=== PATIENT | male | born 1995 | race Two or more races ===

== ENCOUNTER 2023-09-01 13:20 | Inpatient (IN) | payer MEDICAID, OTHER ==
[~2023-09-01] VITALS: Ht 170.2 cm; Wt 62.0 kg
[~2023-09-01 13:20] MED LIST: ARIP1INJ2 IM
[2023-09-01] MEDS: IPRATROPIUM BROM 0.5 MG/2.5ML INH SOL NEB ONE (13:41)
[2023-09-01] MEDS: ALBUTEROL SULF 2.5 MG/0.5ML(0.5%) NEB SOLN NEB ONE (13:41)
[2023-09-01 13:59] VITALS: PULSE 103; RESP 24; O2SAT 94
[2023-09-01] MEDS: methylPREDNISolone SOD SUCC 125 MG/2 ML VL IV ONE (13:59)
[2023-09-01 14:18] LABS: Basophils # (auto) 0 10 ^3/uL (0-0.2); Eosinophils # (auto) 0.2 10 ^3/uL (0-0.8); Hemoglobin 13.2 g/dL (13.5-17.5); Lymphocytes # (auto) 1.1 10 ^3/uL (0.4-5.4); Mean Corpuscular Hemoglobin 25.7 pg (28.0-32.0); Monocytes # (auto) 0.7 10 ^3/uL (0-1.3); Neutrophils # (auto) 14.1 10 ^3/uL (1.6-8.6); Red Blood Cells 5.13 10^6/uL (4.5-5.90); White Blood Cell 16.1 10^3/uL (4.4-10.8)
[2023-09-01 14:19] LABS: Basophils % (auto) 0.2 % (0.0-2.0); Eosinophils % (auto) 1.1 % (0.0-7.0); Hematocrit 41.3 % (41.0-53.0); Lymphocytes % (auto) 7.1 % (10.0-50.0); Mean Corpuscular Hgb Conc. 31.9 g/dL (32.0-36.0); Mean Corpuscular Volume 80.6 fL (80.0-100.0); Monocytes % (auto) 4.2 % (0.0-12.0); Neutrophils % (auto) 87.4 % (37.0-80.0); Nucleated Red Blood Cells % 0.2 %; Red Cell Distribution Width 16.3 % (11.8-14.3)
[2023-09-01 14:30] LABS: Chloride 104 mmol/L (98-107); Potassium 4.2 mmol/L (3.5-5.1); Sodium 139 mmol/L (136-145)
[2023-09-01 14:31] LABS: Anion Gap 4 (5-15); Calcium 9.2 mg/dL (8.7-10.4); Carbon Dioxide 31 mmol/L (20-30)
[2023-09-01 14:36] LABS: Blood Urea Nitrogen 9 mg/dL (9-23); Glucose 123 mg/dL (74-106)
[2023-09-01] MEDS ORDERED: hydrALAZINE HCL 20 MG/ML VL IV PRN (16:00)
[2023-09-01] MEDS ORDERED: ACETAMINOPHEN 325 MG TAB PO PRN (16:00)
[2023-09-01] MEDS ORDERED: DOCUSATE SOD 100 MG CAP PO PRN (16:00)
[2023-09-01] MEDS ORDERED: HYDROcodone-ACET 5/325MG TAB PO PRN (16:00)
[2023-09-01] MEDS ORDERED: ONDANSETRON HCL 4 MG/2 ML VIAL IV PRN (16:00)
[2023-09-01 16:13] VITALS: BP 132/66; PULSE 103; RESP 18; TEMP 98.4; O2SAT 95
[2023-09-01] MEDS: SODIUM CHLORIDE 0.9% 1,000 ML IV SCH (16:13)
[2023-09-01 16:20] VITALS: O2SAT 95
[2023-09-01] MEDS ORDERED: MORPHINE SULFATE INJ 2 MG/ml SYRG IV PRN (16:30)
[2023-09-01] MEDS ORDERED: NITROGLYCERIN 0.4 MG SL TAB SL PRN (16:30)
[2023-09-01 19:20] VITALS: PULSE 99; RESP 19; O2SAT 92
[2023-09-01 22:25] VITALS: PULSE 87; RESP 18; O2SAT 95
[2023-09-01] MEDS: methylPREDNISolone SOD SUCC 40 MG/ML VL IV SCH (22:25)
[2023-09-01] MEDS: ALBUTEROL SULF 2.5 MG/0.5ML(0.5%) NEB SOLN NEB PRN (22:26)
[2023-09-01] MEDS: IPRATROPIUM BROM 0.5 MG/2.5ML INH SOL NEB PRN (22:26)
[2023-09-01] MEDS: FAMOTIDINE (10MG/ML) 2ML VL IV SCH (22:26)
[2023-09-01 22:32] VITALS: PULSE 86; RESP 18; O2SAT 95
[2023-09-02] VITALS (10 sets, daily range): BP systolic 117–139; BP diastolic 61–82; PULSE 45–105; RESP 16–22; TEMP 97.3–97.8; O2SAT 93–97
[2023-09-02 00:50] LABS: COVID19 ANTIGEN SOFIA FIA NEGATIVE (NEGATIVE); Rapid Influenza A Negative (Negative); Rapid Influenza B Negative (Negative)
[2023-09-02 05:59] LABS: Basophils # (auto) 0 10 ^3/uL (0-0.2); Basophils % (auto) 0.1 % (0.0-2.0); Eosinophils # (auto) 0 10 ^3/uL (0-0.8); Hematocrit 39.6 % (41.0-53.0); Lymphocytes # (auto) 0.8 10 ^3/uL (0.4-5.4); Lymphocytes % (auto) 3.7 % (10.0-50.0); Mean Corpuscular Hemoglobin 26.5 pg (28.0-32.0); Mean Corpuscular Hgb Conc. 32.7 g/dL (32.0-36.0); Monocytes # (auto) 0.5 10 ^3/uL (0-1.3); Monocytes % (auto) 2.2 % (0.0-12.0); Neutrophils # (auto) 19.5 10 ^3/uL (1.6-8.6); Red Blood Cells 4.89 10^6/uL (4.5-5.90); Red Cell Distribution Width 16.2 % (11.8-14.3); White Blood Cell 20.7 10^3/uL (4.4-10.8)
[2023-09-02 06:16] LABS: Alanine Aminotransferase 45 U/L (7-40); Albumin 3.9 g/dL (3.2-4.8); Alkaline Phosphatase 94 U/L (46-116); Anion Gap 6 (5-15); Aspartate Aminotransferase 16 U/L (13-40); BUN/Creatinine Ratio 14.5 (10.0-20.0); Blood Urea Nitrogen 9 mg/dL (9-23); Calcium 9.1 mg/dL (8.7-10.4); Carbon Dioxide 28 mmol/L (20-30); Chloride 106 mmol/L (98-107); Glucose 148 mg/dL (74-106); Potassium 4.2 mmol/L (3.5-5.1); Sodium 140 mmol/L (136-145)
[2023-09-02 06:17] LABS: Bilirubin, Total 0.4 mg/dL (0.2-1.0)
[2023-09-02 06:18] LABS: Total Protein 6.8 g/dL (5.7-8.2)
[2023-09-02] MEDS: IOHEXOL 350 MG/ML 100ML IJ ONE (14:46)
[2023-09-02] MEDS: methylPREDNISolone SOD SUCC 40 MG/ML VL IV SCH (15:15)
[2023-09-02] MEDS ORDERED: TRAZ-228 PO (15:38)
[2023-09-02] MEDS ORDERED: ATEN50TA PO (15:38)
[2023-09-02] MEDS ORDERED: TETR25TA PO (15:38)
[2023-09-02] MEDS ORDERED: LATA0.0020 EACHEYE (15:38)
[2023-09-02] MEDS ORDERED: CHOL20007 PO (15:38)
[2023-09-02] MEDS ORDERED: DORZ2SOL18 EACHEYE (15:38)
[2023-09-03] VITALS (12 sets, daily range): BP systolic 117–145; BP diastolic 67–81; PULSE 57–75; RESP 20–24; TEMP 97.1–97.9; O2SAT 92–99
[2023-09-03 06:34] LABS: Basophils # (auto) 0 10 ^3/uL (0-0.2); Basophils % (auto) 0.1 % (0.0-2.0); Eosinophils # (auto) 0 10 ^3/uL (0-0.8); Hematocrit 41.2 % (41.0-53.0); Hemoglobin 13.4 g/dL (13.5-17.5); Lymphocytes # (auto) 0.9 10 ^3/uL (0.4-5.4); Lymphocytes % (auto) 4.7 % (10.0-50.0); Mean Corpuscular Hemoglobin 26.2 pg (28.0-32.0); Mean Corpuscular Hgb Conc. 32.6 g/dL (32.0-36.0); Mean Corpuscular Volume 80.4 fL (80.0-100.0); Monocytes # (auto) 0.8 10 ^3/uL (0-1.3); Monocytes % (auto) 3.8 % (0.0-12.0); Neutrophils # (auto) 18.2 10 ^3/uL (1.6-8.6); Neutrophils % (auto) 91.4 % (37.0-80.0); Nucleated Red Blood Cells % 0.1 %; Red Blood Cells 5.12 10^6/uL (4.5-5.90); Red Cell Distribution Width 16.3 % (11.8-14.3); White Blood Cell 19.9 10^3/uL (4.4-10.8)
[2023-09-03 06:35] LABS: Anion Gap 6 (5-15); Carbon Dioxide 31 mmol/L (20-30); Chloride 104 mmol/L (98-107); Potassium 4.3 mmol/L (3.5-5.1); Sodium 141 mmol/L (136-145)
[2023-09-03 06:36] LABS: Calcium 9.1 mg/dL (8.7-10.4)
[2023-09-03 06:41] LABS: BUN/Creatinine Ratio 19.1 (10.0-20.0); Blood Urea Nitrogen 13 mg/dL (9-23); Glucose 122 mg/dL (74-106)
[2023-09-03] MEDS ORDERED: PRED20TA2 PO (15:49)
[2023-09-03] MEDS ORDERED: BUDE1AER16 IN (15:52)
[2023-09-04 09:06] LABS: Hepatitis B Surface Antigen Negative (Negative)
[2023-09-04 09:28] LABS: Hepatitis C Antibody Negative (Negative)
== END 2023-09-03 18:25 | disposition home or self-care (01) | DRG 133 ==
LOC: EDBD 13:20 → ER 13:20 → TELE 16:24 → TELE-E-ADS 09-02 02:30
PROVIDERS: ADMIT Internal Medicine Pulmonary Disease; ATTEND Internal Medicine Pulmonary Disease
PROC: 5A09357 Assistance with Respiratory Ventilation, Less than 24 Consecutive Hours, Continuous Positive Airway Pressure (ICD-10-PCS; principal; 2023-09-03)
DX: J96.01 Acute respiratory failure with hypoxia (principal); J45.41 Moderate persistent asthma with (acute) exacerbation; D72.829 Elevated white blood cell count, unspecified; E66.01 Morbid (severe) obesity due to excess calories; Z68.21 Body mass index [BMI] 21.0-21.9, adult; Z20.822 Contact with and (suspected) exposure to COVID-19; F84.0 Autistic disorder; F20.9 Schizophrenia, unspecified; G47.33 Obstructive sleep apnea (adult) (pediatric)
CPT/HCPCS: 36415; 71045; 71275; 80048; 80053; 83880; 84484; 85025; 86803; 87040; 87340; 87426; 87804; 93005; 93970; 94640; 94660; 99291; G0378; J3490

== ENCOUNTER 2024-01-19 17:12 | Inpatient (IN) | payer MEDICAID ==
[~2024-01-19] VITALS: Ht 170.2 cm; Wt 145.5 kg
[~2024-01-19 17:12] MED LIST changes: +ALBU108A5 IN; +ATEN50TA PO; +BECL40AE11 IN; +BUDE1AER16 IN; +CHOL20007 PO; +DORZ2SOL18 EACHEYE; +LATA0.0020 EACHEYE; +METF-370 PO; +PRED20TA2 PO; +TETR25TA PO; +TRAZ-228 PO
[2024-01-19] MEDS: ALBUTEROL SULF 2.5 MG/0.5ML(0.5%) NEB SOLN NEB ONE (17:45)
[2024-01-19] MEDS: IPRATROPIUM BROM 0.5 MG/2.5ML INH SOL NEB ONE (17:45)
[2024-01-19] MEDS: ALBUTEROL SULF 2.5 MG/0.5ML(0.5%) NEB SOLN ONE (17:53)
[2024-01-19] MEDS: IPRATROPIUM BROM 0.5 MG/2.5ML INH SOL ONE (17:53)
[2024-01-19] MEDS: MAGNESIUM SULFATE 1GM/100ML 100 ML IV ONE ×2 (18:06→18:33)
[2024-01-19] MEDS: methylPREDNISolone SOD SUCC 125 MG/2 ML VL IV ONE (18:10)
[2024-01-19 18:18] VITALS: PULSE 112; RESP 32; O2SAT 92
--- NOTE | 2024-01-19 18:21 | DVH ---
CHEST RADIOGRAPH Indication: SOB Technique: Single frontal view of the chest was obtained Comparison: XY CHEST PORTABLE on DOS: 09/01/23 FINDINGS: Lines and Tubes: None Lungs: Obscuration of the left hemidiaphragm Diffuse interstitial prominence. No pneumothorax. Cardiomediastinal contours: Moderate cardiomegaly Bones: No acute osseous abnormality. IMPRESSION: Moderate cardiomegaly with findings suggestive of congestive heart failure. Possible left-sided pleu ral effusion.
--- NOTE | 2024-01-19 18:25 | ED.PDOC ---
SOB-HPI HPI Comments 28-year-old male with past medical history of asthma, autism, schizophrenia presented with chief complaint of shortness of breath, cough and sputum. Patient started having cough and yellowish colored sputum for last 2-3 days but since 0800 hours in the morning patient started having shortness of breath. Patient took albuterol 2 times but did not get relief and then called EMS. As per EMS, patient was saturating 80-85% and was saturating 97% after nebulization with albuterol. Patient denied any chest pain, palpitations, nausea, vomiting, dizziness, headache, abdominal pain, leg pain, melena, hematochezia. As per mother who came later in the hospital, patient had been intubated one time six months ago in [facility] for two weeks for asthma exacerbation. Past medical history asthma, autism, schizophrenia Past surgical history Denied Family history Denied significant family history Social history Patient mentioned that he smokes marijuana and drinks occasional alcohol Denied smoking or any other drugs Allergic history No known allergies Review of system As explained in the HPI Examination General Appearance: Alert, Oriented X3, Cooperative, No acute distress HEENT: EOMI Respiratory: Bilateral scattered wheezing, Cardiovascular: Regular rate, Normal S1, Normal S2, no murmurs Abdominal: Normal bowel sounds Extremities: Bilateral pedal pitting edema Neuro: Normal speech and tone Chief Complaint: Shortness of Breath Time Seen by MD: 17:34 Primary Care Provider: UNKNOWN Reviewed notes: Nurses Notes Mode of Arrival: EMS Differential Dx Differential Diagnosis: Asthma, Cardiogenic Shock, CHF, COPD, Myocardial infarction, Pneumonia, Pulmonary Embolism, Respiratory Distress X-Ray, Labs, Meds, VS Vital Signs Date Time Temp Pulse Resp B/P (MAP) Pulse Ox O2 Delivery O2 Flow Rate FiO2 01/19/24 19:50 133/84 01/19/24 19:45 98.1 87 34 133/84 (100) 90 98.1 01/19/24 19:26 136/83 01/19/24 19:11 96 20 136/83 (100) 95 01/19/24 18:42 105 01/19/24 18:37 113 01/19/24 18:18 112 32 92 Bi-Pap+ 60 60 01/19/24 18:18 97.9 112 32 146/92 (110) 93 97.9 01/19/24 18:10 107 146/92 Facial BiPAP Mask 50 01/19/24 17:45 32 93 Nasal Cannula* 6 44 01/19/24 17:12 97.9 122 20 122/75 (91) 96 Lab Test 01/19/24 20:10 01/19/24 19:04 01/19/24 19:03 01/19/24 18:04 Range/Units Urine Opiates Screen Neg NEGATIVE Urine Fentanyl Screen Neg NEGATIVE Urine Barbiturates Screen Neg NEGATIVE Urine Phencyclidine Screen Neg NEGATIVE Urine Amphetamines Screen Neg NEGATIVE Urine Benzodiazepines Screen Pos NEGATIVE Urine Cocaine Screen Neg NEGATIVE Urine Cannabinoids Screen Pos NEGATIVE Troponin I High Sensitivity 62 *H 61 *H </=54 ng/L Blood Gas Specimen Type Arterial Blood Gas Sample Site Left radial Blood Gas Patient Temperature 37.0 Arterial Blood Date Drawn [id number] Arterial Blood pH 7.258 L 7.350-7.450 Arterial Blood Partial Pressure CO2 76.9 *H 35.0-48.0 mmHg Arterial Blood Partial Pressure O2 90.4 83.0-108.0 mmHg Arterial Blood HCO3 33.6 H 21.0-28.0 mmol/L Arterial Blood Oxygen Saturation 95.4 94.0-98.0 % Arterial Blood Base Excess 4.0 H -2.0-3.0 mmol/L Arterial Blood Oxyhemoglobin 93.2 L 94.0-98.0 % Arterial Blood Carboxyhemoglobin 1.8 H 0.5-1.5 % Arterial Blood Methemoglobin 0.5 0.0-1.5 % Giacomo Test Yes Blood Gas Total Hemoglobin 13.70 13.5-17.5 g/dL Blood Gas Modality Mask - bipap FiO2 % 50.0 Blood Gas EPAP 8 Blood Gas IPAP 16 Specimen Drawn By Nasra jiménez tax compliance manager Blood Gas Critical Value Read Back yes Blood Gas Notified Whom taina Stallworth resident Blood Gas Notified Time [id number] Blood Gas Notified By Nasra jiménez tax compliance manager White Blood Count 11.6 H 4.4-10.8 10^3/uL Red Blood Count 5.67 4.5-5.90 10^6/uL Hemoglobin 12.5 L 13.5-17.5 g/dL Hematocrit 41.9 41.0-53.0 % Mean Corpuscular Volume 73.8 L 80.0-100.0 fL Mean Corpuscular Hemoglobin 22.1 L 28.0-32.0 pg Mean Corpuscular Hemoglobin Concent 29.9 L 32.0-36.0 g/dL Red Cell Distribution Width 18.6 H 11.8-14.3 % Platelet Count 266 140-450 10^3/uL Mean Platelet Volume 7.0 6.9-10.8 fL Neutrophils (%) (Auto) 84.5 H 37.0-80.0 % Lymphocytes (%) (Auto) 7.4 L 10.0-50.0 % Monocytes (%) (Auto) 6.8 0.0-12.0 % Eosinophils (%) (Auto) 1.1 0.0-7.0 % Basophils (%) (Auto) 0.2 0.0-2.0 % Neutrophils # (Auto) 9.8 H 1.6-8.6 10 ^3/uL Lymphocytes # (Auto) 0.9 0.4-5.4 10 ^3/uL Monocytes # (Auto) 0.8 0-1.3 10 ^3/uL Eosinophils # (Auto) 0.1 0-0.8 10 ^3/uL Basophils # (Auto) 0 0-0.2 10 ^3/uL Nucleated Red Blood Cells 0.2 % D-Dimer, Quantitative 0.43 0.0-0.49 mg/L FEU Sodium Level 142 136-145 mmol/L Potassium Level 4.1 3.5-5.1 mmol/L Chloride Level 104 98-107 mmol/L Carbon Dioxide Level 33 H 20-31 mmol/L Anion Gap 5 5-15 Blood Urea Nitrogen 9 9-23 mg/dL Creatinine 0.73 0.700-1.30 mg/dL Glomerular Filtration Rate Calc 126 >90 mL/min BUN/Creatinine Ratio 12.3 10.0-20.0 Serum Glucose 113 H 74-106 mg/dL Calcium Level 8.9 8.7-10.4 mg/dL Total Bilirubin 0.3 0.2-1.0 mg/dL Aspartate Amino Transferase (AST) 39 13-40 U/L Alanine Aminotransferase (ALT) 77 H 7-40 U/L Alkaline Phosphatase 100 46-116 U/L B-Type Natriuretic Peptide 561.97 0-100 pg/mL Total Protein 6.6 5.7-8.2 g/dL Albumin 3.9 3.2-4.8 g/dL Test 01/19/24 17:56 Range/Units Blood Gas Specimen Type Arterial Blood Gas Sample Site Left radial Blood Gas Patient Temperature 37.0 Arterial Blood Date Drawn [id number] Arterial Blood pH 7.292 L 7.350-7.450 Arterial Blood Partial Pressure CO2 70.9 *H 35.0-48.0 mmHg Arterial Blood Partial Pressure O2 72.5 L 83.0-108.0 mmHg Arterial Blood HCO3 33.5 H 21.0-28.0 mmol/L Arterial Blood Oxygen Saturation 91.9 L 94.0-98.0 % Arterial Blood Base Excess 4.6 H -2.0-3.0 mmol/L Arterial Blood Oxyhemoglobin 90.0 L 94.0-98.0 % Arterial Blood Carboxyhemoglobin 1.6 H 0.5-1.5 % Arterial Blood Methemoglobin 0.5 0.0-1.5 % Giacomo Test Yes Blood Gas Total Hemoglobin 14.00 13.5-17.5 g/dL Blood Gas Liter Flow 6.00 Blood Gas Modality Nasal cannula FiO2 % 44.0 Specimen Drawn By Nasra jiménez rrt Blood Gas Critical Value Read Back yes Blood Gas Notified Whom taina [place] resident Blood Gas Notified Time [id number] Blood Gas Notified By Nasra jiménez tax compliance manager Current Medications Medications (Trade) Dose Ordered Sig/Reji Route Start Time Stop Time Status Last Admin Magnesium Sulfate/ Dextrose 100 ml @ 200 mls/hr ONCE ONCE IV 01/19/24 17:45 01/19/24 18:14 DC 01/19/24 18:06 Albuterol (Ventolin Medneb) 2.5 mg ONCE ONCE NEB 01/19/24 17:45 01/19/24 17:51 DC 01/19/24 17:45 Ipratropium [place] (Atrovent Medneb) 0.5 mg ONCE ONCE NEB 01/19/24 17:45 01/19/24 17:51 DC 01/19/24 17:45 Methylprednisolone Sodium Succinate (Solu Medrol) 62.5 mg ONCE ONCE IV 01/19/24 17:45 01/19/24 17:51 DC 01/19/24 18:10 Magnesium Sulfate/ Dextrose 100 ml @ 200 mls/hr ONCE ONCE IV 01/19/24 17:45 01/19/24 18:14 DC 12/9/24 18:33 Furosemide (Lasix Injection) 40 mg ONCE ONCE IV 01/19/24 18:30 01/19/24 20:07 DC 01/19/24 22:35 Nitroglycerin 250 ml @ 1.5 mls/hr Q24H ONCE IV 01/19/24 19:15 01/20/24 19:14 01/19/24 19:26 Terbutaline Sulfate (Brethine Inj) 0.25 mg ONCE ONCE SC 01/19/24 19:15 01/19/24 19:16 DC 01/19/24 22:37 Time of 1ST Reevaluation: 19:04 Reevaluation 1ST: Worsened Patient Education/Counseling: Diagnosis, Treatment Family Education/Counseling: Diagnosis, Treatment Comments Patient presented with the above shortness of breath. workup was initiated. Patient was given: Albuterol, ipratropium nebulization treatment, IV magnesium 2 g, IV methylprednisolone. aspirin 325mg once Patient did not improve, patient was started on BiPAP as ABG was showing respira tory acidosis with concomitant metabolic alkalosis. Chest x-ray showed cardiomegaly with possible CHF with left-sided pleural effusion Patient was given IV Lasix, nitroglycerin drip. Repeat ABG did not show significant improvement Patient was intubated, and started on sedation. Patient ED course and VS have been stabilized. Patient has been reassessed in the ED and remained in a stable condition. Patient has been observed in the ED adequate length of time to insure stability. patient was admitted to the medicine team for further evaluation and treatment of their presentation. All the reports of any imaging studies that were ordered by myself were reviewed by myself. Departure 1 Departure Time of Disposition: 19:04 Impression: Primary Impression: Asthma exacerbation Additional Impressions: CHF exacerbation Elevated troponin Acute hypoxic respiratory failure Disposition: ADMITTED INPATIENT Admit to: ICU Condition: Critical Critical Care Note Critical Care Time?: Yes (>90min-critical care time only) PORTIA STALLWORTH RESIDENT Jan 19, 2024 18:25
[2024-01-19 18:27] LABS: Basophils # (auto) 0 10 ^3/uL (0-0.2); Basophils % (auto) 0.2 % (0.0-2.0); Eosinophils # (auto) 0.1 10 ^3/uL (0-0.8); Eosinophils % (auto) 1.1 % (0.0-7.0); Hematocrit 41.9 % (41.0-53.0); Hemoglobin 12.5 g/dL (13.5-17.5); Lymphocytes # (auto) 0.9 10 ^3/uL (0.4-5.4); Lymphocytes % (auto) 7.4 % (10.0-50.0); Mean Corpuscular Hemoglobin 22.1 pg (28.0-32.0); Mean Corpuscular Hgb Conc. 29.9 g/dL (32.0-36.0); Mean Corpuscular Volume 73.8 fL (80.0-100.0); Monocytes # (auto) 0.8 10 ^3/uL (0-1.3); Monocytes % (auto) 6.8 % (0.0-12.0); Neutrophils # (auto) 9.8 10 ^3/uL (1.6-8.6); Neutrophils % (auto) 84.5 % (37.0-80.0); Nucleated Red Blood Cells % 0.2 %; Platelet Count (auto) 266 10^3/uL (140-450); Red Blood Cells 5.67 10^6/uL (4.5-5.90); Red Cell Distribution Width 18.6 % (11.8-14.3); White Blood Cell 11.6 10^3/uL (4.4-10.8)
--- NOTE | 2024-01-19 18:44 | ECG ---
[facility] Test Date: 2024-01-19 Test Time: 18:42:15 Pat Name: DENNIS MERCER Department: ER Room: [address] [place] [address] Gender: M Adjunct Trainer: MAUREEN : 1995 Requested By: HUGO YEPEZ Order Number: [id number] Reading MD: Ney Tony Measurements Intervals [place] Rate: 105 P: 20 HI: 146 QRS: 216 QRSD: 97 T: 27 QT: 348 QTc: 461 Interpretive Statements Sinus tachycardia Probable anterior infarct, age indeterminate Electronically Signed On 01-23-2024 12:36:07 PST by Ney Tony Please click the below link to view image of tracing.
[2024-01-19 18:45] LABS: Alanine Aminotransferase 77 U/L (7-40); Albumin 3.9 g/dL (3.2-4.8); Alkaline Phosphatase 100 U/L (46-116); Anion Gap 5 (5-15); Aspartate Aminotransferase 39 U/L (13-40); BUN/Creatinine Ratio 12.3 (10.0-20.0); Bilirubin, Total 0.3 mg/dL (0.2-1.0); Blood Urea Nitrogen 9 mg/dL (9-23); Calcium 8.9 mg/dL (8.7-10.4); Carbon Dioxide 33 mmol/L (20-31); Chloride 104 mmol/L (98-107); Glucose 113 mg/dL (74-106); Potassium 4.1 mmol/L (3.5-5.1); Sodium 142 mmol/L (136-145); Total Protein 6.6 g/dL (5.7-8.2)
--- NOTE | 2024-01-19 18:51 | DVH ---
Bilateral lower extremity venous duplex Clinical History: rule out DVT Comparison: US BILAT LOWER DVT on DOS: 09/02/23 Technique: Duplex Doppler evaluation of the deep venous systems of both lower extremities from the common femora l veins to the popliteal veins including color Doppler and spectral/pulsed waveform analysis was perf ormed. Findings: RIGHT SIDE: The common femoral vein demonstrates appropriate compressibility and waveform variability. There is compressibility/patency of the great saphenous vein at the proximal thigh. The femoral vein demonstrates appropriate compressibility and waveform variability. The deep femoral vein demonstrates appropriate compressibility and waveform variability. The popliteal vein demonstrates appropriate compressibility and waveform variability. There is normal compressibility at the tibioperoneal trunk. LEFT SIDE: The common femoral vein not visible. There is compressibility/patency of the great saphenous vein at the proximal thigh. The femoral vein proximal superficial femoral vein is not visible. The deep femoral vein demonstrates appropriate compressibility and waveform variability. The popliteal vein demonstrates appropriate compressibility and waveform variability. There is normal compressibility at the tibioperoneal trunk. Impression: 1. No right or left femoropopliteal venous thrombosis. 2. Left common femoral vein and proximal superficial femoral vein are not visible and therefore throm bus can not be excluded in those areas.
[2024-01-19] MEDS ORDERED: NITROGLYCERIN 50MG/250ML 250 ML IV ONE (19:00)
[2024-01-19] MEDS: NITROGLYCERIN 50MG/250ML 250 ML IV ONE (19:26)
[2024-01-19] MEDS ORDERED: NITROGLYCERIN 0.4 MG SL TAB SL PRN (20:15)
[2024-01-19] MEDS ORDERED: MORPHINE SULFATE INJ 2 MG/ml SYRG IV PRN (20:15)
[2024-01-19] MEDS ORDERED: ONDANSETRON HCL 4 MG/2 ML VIAL IV PRN (20:15)
--- NOTE | 2024-01-19 20:19 | DVHHP2 ---
Admitting Diagnosis: Shortness of breath and cough History of Present Illness Patient is a 28 year old male complaining of shortness of breath, cough and sputum. Patient has a history of asthma, schizophrenia, and autism. Patient has had yellow colored sputum for 2-3 days. Patient has also been experiencing shortness of breath. Patient has not received any relief from albuterol. Per EMS, patient was saturating 80-85% and after nebulization with albuterol, it was 97%. Patient denies any chest pain. While in the emergency department the patient was evaluated by the provider, Labs, vital signs, and imagining monitored. Patient will be admitted for further evaluation and treatment. I discussed admission with the patient/family and is in agreement to treatment plan. Patient Family History: Self-harm G8 SISTER Allergies: Coded Allergies: NO KNOWN ALLERGIES (Unverified , 09/01/23) Home Meds Reported Medications Metformin Hydrochloride (Metformin Hcl) 500 Mg Tab, 1 TAB PO BID for 90 Days, #180 01/20/24 Beclomethasone Dipropionate (Qvar Redihaler) 40 Mcg/Act Aer, 1 PUFF IN BID for 60 Days, #10.6 01/20/24 Albuterol Sulfate (Albuterol Sulfate Hfa) 108 Mcg/Act Aer, 2 PUFF IN Q4HR PRN for COUGH for 16 Days, #8.5 01/20/24 Latanoprost (Xalatan) 0.005 % Rosy, 1 DROP EACHEYE QPM 09/02/23 Dorzolamide-Timolol (Dorzolamide Hcl/Timolol M) 1 Ml Rosy, 1 DROP EACHEYE BID 09/02/23 Tetrabenazine (Tetrabenazine) 25 Mg Tab, 1 TAB PO DAILY 09/02/23 Trazodone Hcl (Trazodone Hcl) 100 Mg Tab, 1 TAB PO BID 09/02/23 Cholecalciferol (VITAMIN D3) 2,000 Unit Tab, 1 TAB PO DAILY 09/02/23 Atenolol (Atenolol) 50 Mg Tab, 1 TAB PO DAILY 09/02/23 Aripiprazole Monohydrate (Abilify Maintena) 400 Mg Inj, 400 MG IM MONTHLY for 28 Days, #1 09/02/23 Current Medications Current Medications Medications (Trade) Dose Ordered Sig/Reji Route PRN Reason Start Time Stop Time Status Last Admin Enoxaparin Sodium (Lovenox) 40 mg DAILY SC 01/20/24 10:00 01/20/24 07:10 DC Methylprednisolone Sodium Succinate (Solu Medrol) 40 mg Q6HR IV 01/20/24 00:00 01/20/24 17:43 Pantoprazole Sodium (Protonix) 40 mg DAILY IV 01/20/24 10:00 01/20/24 09:22 Enoxaparin Sodium (Lovenox) 180 mg Q12HR SC 01/20/24 10:00 01/20/24 09:03 DC Aspirin 81 mg DAILY NG 01/20/24 10:00 01/20/24 09:22 Atorvastatin Calcium (Lipitor) 40 mg HS PO 01/20/24 22:00 Furosemide (Lasix Injection) 40 mg BIDD IV 01/20/24 18:00 01/20/24 11:21 DC Enoxaparin Sodium (Lovenox) 150 mg Q12HR SC 01/20/24 10:00 01/20/24 09:23 Latanoprost (Xalatan) 1 drop QPM EACHEYE 01/20/24 18:00 01/20/24 18:01 Patient Own Medication 400 mg MONTHLY IM 01/20/24 11:30 Lisinopril (Zestril Tablet) 20 mg DAILY PO 01/20/24 11:30 01/20/24 12:05 Furosemide (Lasix Injection) 40 mg DAILY IV 01/21/24 10:00 Nitroglycerin 250 ml @ 1.5 mls/hr Q24H IV 01/20/24 20:30 Albuterol (Ventolin Medneb) 2.5 mg Q4HR NEB 01/20/24 22:00 01/20/24 22:16 Ipratropium [place] (Atrovent Medneb) 0.5 mg Q4HR NEB 01/20/24 22:00 01/20/24 22:17 Review of Systems Constitutional: denies chills, denies fever, denies malaise Eyes: denies eye pain, denies vision change ENT: denies ear pain, denies headache, denies nasal congestion, denies painful swallowing, denies voice change Cardiovascular: denies chest pain, denies edema, denies orthopnea, denies palpitations, denies paroxysmal nocturnal dyspnea Respiratory: denies cough, denies shortness of breath Gastrointestinal: denies constipation, denies diarrhea, denies nausea, denies vomiting Genitourinary: denies dysuria, denies frequent urination, denies urethral discharge Musculoskeletal: denies back pain, denies joint pain, denies muscle pain Skin: denies bruising, denies itching, denies rash Neurological: denies focal weakness, denies headache, denies sensory changes Psychiatric: denies anxiety, denies depression Endocrine: denies polydipsia, denies polyuria Hematologic/Lymphatic: denies easy bleeding, denies easy bruising, denies enlarged lymph nodes Allergic/Immunologic: denies allergy, denies hives Vital Signs Vital Signs Date Time Temp Pulse Resp B/P (MAP) Pulse Ox O2 Delivery O2 Flow Rate FiO2 01/20/24 22:17 80 28 136/80 (98) 93 100 01/20/24 21:15 99.0 210.2 01/20/24 21:00 Mechanical Ventilator+ 01/19/24 17:45 6 Physical Exam General Appearance: alert, no distress HEENT: EOMI, PERRLA, normal external inspect of ears, no icterus, no nasal drainage Neck: no carotid bruit, no jugular venous distention (JVD), no lymphadenopathy Chest: normal thorax Respiratory: clear to auscultation Cardiovascular: regular rate and rhythm, no diastolic murmur, no jugular venous distention (JVD), no rub, no systolic murmur Abdominal: soft, no hepatomegaly, no mass, no splenomegaly, no tenderness Genitourinary: grossly normal external Musculoskeletal: no joint tenderness, no swelling Extremities: normal pulses, no calf tenderness, no clubbing, no cyanosis, no edema Skin: no bruising, no jaundice, no rash Neurological: alert, No focal deficit Results Labs Test 01/20/24 10:15 01/20/24 08:05 01/20/24 07:34 01/20/24 03:20 Range/Units Troponin I High Sensitivity 82 *H </=54 ng/L Blood Gas Specimen Type Arterial Blood Gas Sample Site Left radial Blood Gas Patient Temperature 37.0 Arterial Blood Date Drawn [id number] Arterial Blood pH 7.424 7.350-7.450 Arterial Blood Partial Pressure CO2 41.2 35.0-48.0 mmHg Arterial Blood Partial Pressure O2 81.7 L 83.0-108.0 mmHg Arterial Blood HCO3 26.4 21.0-28.0 mmol/L Arterial Blood Oxygen Saturation 96.2 94.0-98.0 % Arterial Blood Base Excess 1.8 -2.0-3.0 mmol/L Arterial Blood Oxyhemoglobin 94.6 94.0-98.0 % Arterial Blood Carboxyhemoglobin 1.6 H 0.5-1.5 % Arterial Blood Methemoglobin 0.1 0.0-1.5 % Giacomo Test Modified Blood Gas Total Hemoglobin 14.00 13.5-17.5 g/dL Blood Gas Set Respiration Rate 28.0 Blood Gas Modality Vent - ac FiO2 % 100.0 Blood Gas Tidal Volume 500.0 Blood Gas PEEP or CPAP 10.0 Thyroid Stimulating Hormone (TSH) 0.48 L 0.55-4.78 uIU/mL White Blood Count 11.2 H 4.4-10.8 10^3/uL Red Blood Count 5.73 4.5-5.90 10^6/uL Hemoglobin 12.9 L 13.5-17.5 g/dL Hematocrit 42.0 41.0-53.0 % Mean Corpuscular Volume 73.3 L 80.0-100.0 fL Mean Corpuscular Hemoglobin 22.5 L 28.0-32.0 pg Mean Corpuscular Hemoglobin Concent 30.7 L 32.0-36.0 g/dL Red Cell Distribution Width 18.7 H 11.8-14.3 % Platelet Count 271 140-450 10^3/uL Mean Platelet Volume 7.1 6.9-10.8 fL Neutrophils (%) (Auto) 94.3 H 37.0-80.0 % Lymphocytes (%) (Auto) 4.3 L 10.0-50.0 % Monocytes (%) (Auto) 1.3 0.0-12.0 % Eosinophils (%) (Auto) 0.0 0.0-7.0 % Basophils (%) (Auto) 0.1 0.0-2.0 % Neutrophils # (Auto) 10.5 H 1.6-8.6 10 ^3/uL Lymphocytes # (Auto) 0.5 0.4-5.4 10 ^3/uL Monocytes # (Auto) 0.1 0-1.3 10 ^3/uL Eosinophils # (Auto) 0 0-0.8 10 ^3/uL Basophils # (Auto) 0 0-0.2 10 ^3/uL Nucleated Red Blood Cells 0.2 % Sodium Level 140 136-145 mmol/L Potassium Level 4.3 3.5-5.1 mmol/L Chloride Level 103 98-107 mmol/L Carbon Dioxide Level 32 H 20-31 mmol/L Anion Gap 5 5-15 Blood Urea Nitrogen 9 9-23 mg/dL Creatinine 0.70 0.700-1.30 mg/dL Glomerular Filtration Rate Calc 128 >90 mL/min BUN/Creatinine Ratio 12.9 10.0-20.0 Serum Glucose 162 H 74-106 mg/dL Calcium Level 9.2 8.7-10.4 mg/dL Total Bilirubin 0.5 0.2-1.0 mg/dL Aspartate Amino Transferase (AST) 35 13-40 U/L Alanine Aminotransferase (ALT) 70 H 7-40 U/L Alkaline Phosphatase 90 46-116 U/L Total Protein 6.9 5.7-8.2 g/dL Albumin 3.9 3.2-4.8 g/dL Test 01/20/24 01:45 01/19/24 23:34 01/19/24 20:30 01/19/24 20:16 Range/Units Blood Gas Spontaneous Rate 28 Blood Gas Critical Value Read Back Yes Blood Gas Notified Whom Md. irene rolon Blood Gas Notified Time [id number] Blood Gas Notified By Rt shailesh damon Influenza Type A Antigen Negative Negative Influenza Type B Antigen Negative Negative SARS-CoV-2 Antigen (Rapid) Negative NEGATIVE Blood Gas EPAP 8 Blood Gas IPAP 20 Specimen Drawn By Nasra jiménez machine pecan gatherer Test 01/19/24 20:10 01/19/24 18:04 01/19/24 17:56 Range/Units Urine Opiates Screen Neg NEGATIVE Urine Fentanyl Screen Neg NEGATIVE Urine Barbiturates Screen Neg NEGATIVE Urine Phencyclidine Screen Neg NEGATIVE Urine Amphetamines Screen Neg NEGATIVE Urine Benzodiazepines Screen Pos NEGATIVE Urine Cocaine Screen Neg NEGATIVE Urine Cannabinoids Screen Pos NEGATIVE D-Dimer, Quantitative 0.43 0.0-0.49 mg/L FEU B-Type Natriuretic Peptide 561.97 0-100 pg/mL Blood Gas Liter Flow 6.00 Admitting Diagnosis: 1. Asthma with acute exacerbation Pulmonary consult, monitoring 2. Acute hypoxic respiratory failure requiring intubation Pulmonary Consult 3. Shizophrenia Monitoring 4. Autism Medication, monitoring 5. Elevated Troponin Cardiology Consult, monitoring 6. Cannabis Use Education Plan discussed with: Patient, Other VIK COBOS MUSIC SOUND LIGHT TECHNICIAN Jan 19, 2024 20:19
[2024-01-19] MEDS: ETOMIDATE (2MG/ML) 20ML VIAL IV ONE (20:45)
[2024-01-19] MEDS: ROCURONIUM 10MG/ML 10ML VIAL IV ONE ×2 (20:45→21:13)
[2024-01-19 21:00] VITALS: BP 169/117; PULSE 106; RESP 24; O2SAT 96
[2024-01-19] MEDS: ASPirin 325 MG TAB PO ONE (21:16)
[2024-01-19 21:17] LABS: COVID19 ANTIGEN SOFIA FIA NEGATIVE (NEGATIVE)
[2024-01-19 21:18] LABS: Rapid Influenza A Negative (Negative); Rapid Influenza B Negative (Negative)
[2024-01-19] MEDS: MIDAZOLAM DRIP 50 mg/50mL 50 ML IV SCH (21:30)
[2024-01-19 21:43] LABS: Base Excess 4.6 mmol/L (-2.0-3.0)
[2024-01-19] MEDS: MIDAZOLAM DRIP 50 mg/50mL 50 ML IV ONE (21:45)
[2024-01-19 21:46] LABS: Base Excess 2.6 mmol/L (-2.0-3.0)
[2024-01-19 21:50] VITALS: BP 169/117; PULSE 106; RESP 24; TEMP 98.1; O2SAT 100
--- NOTE | 2024-01-19 21:55 | DVH ---
CHEST RADIOGRAPH Indication: ET TUBE/ NG TUBE PLACEMENT Technique: Single frontal view of the chest was obtained Comparison: XY CHEST PORTABLE on DOS: 01/19/24, XY CHEST PORTABLE on DOS: 09/01/23 Findings / IMPRESSION: Endotracheal tube projects terminating 1.8 cm superior to the zbigniew. Enteric tube is projecting belo w the GE junction without visualization of the port or tip. Low lung volumes with bronchovascular agricultural crop farm manager wding. Possible small left-sided pleural effusion and/or atelectasis. No pneumothorax.
[2024-01-19] MEDS: fentaNYL Drip 2500mCg/250mlNS 250 ML IV SCH (22:15)
[2024-01-19] MEDS: PROPOFOL 100 ML IV ONE (22:26)
[2024-01-19] MEDS: PROPOFOL 100 ML IV SCH (22:31)
[2024-01-19 22:35] VITALS: BP 138/72; PULSE 84; RESP 24; O2SAT 92
[2024-01-19] MEDS: FUROSEMIDE 40 MG/4 ML VIAL IV ONE (22:35)
[2024-01-19] MEDS: TERBUTALINE SULFATE 1 MG/ML 1ML VIAL SC ONE (22:37)
[2024-01-19 22:43] LABS: Amphetamine Screen, Urine Neg (NEGATIVE); Barbiturate Scree,Urine Neg (NEGATIVE); Benzodiazephine Screen, Urine Pos (NEGATIVE); Cannabinoid Screen, Urine Pos (NEGATIVE); Cocaine Screen, Urine Neg (NEGATIVE); Opiate Scree,Urine Neg (NEGATIVE); Phencyclidine Screen, Urine Neg (NEGATIVE)
--- NOTE | 2024-01-19 22:56 | DVHNC2 ---
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 ([facility]) Indication: Hypotension Room prepared for procedure: Yes Railcar Carpenter performed hand hygien: Yes Maximal sterile barrier precau: Mask/Eye shield, Sterile gown, Cap, Sterlie gloves, Large sterlie drape Skin Preparation: Chlorhexidine gluconate Skin preparation completely dr: Yes Insertion site: Left, Internal jugular Central line catheter type: Xer-oflabokc-men dialysis Number of lumens: 3 Intubation Indication: Respiratory Insufficiency Prep: Preoxygenation (with bipap) Medicated with: Other (Etomidate and rocuronium) Intubation Approach: Orotracheal Intubation size: cm (8) Date of Service: Jan 19, 2024 Billing Provider: POOJA EARL MD Common Visit Codes: PROCEDURE ONLY Procedure Codes: 40277-MPOXDO NON-TUNNEL CV CATH PORTIA LEWIS RESIDENT Jan 19, 2024 22:56
[2024-01-19 23:46] LABS: Base Excess 4.4 mmol/L (-2.0-3.0)
[2024-01-19 23:50] VITALS: BP 139/85; PULSE 80; RESP 28; O2SAT 93
[2024-01-20] VITALS (31 sets, daily range): BP systolic 120–155; BP diastolic 65–100; PULSE 78–110; RESP 22–30; TEMP 99–99.5; O2SAT 88–96
[2024-01-20] MEDS: methylPREDNISolone SOD SUCC 40 MG/ML VL IV SCH (00:51)
[2024-01-20 01:55] LABS: Base Excess 7.4 mmol/L (-2.0-3.0)
[2024-01-20 04:02] LABS: Basophils # (auto) 0 10 ^3/uL (0-0.2); Basophils % (auto) 0.1 % (0.0-2.0); Eosinophils # (auto) 0 10 ^3/uL (0-0.8); Hemoglobin 12.9 g/dL (13.5-17.5); Lymphocytes # (auto) 0.5 10 ^3/uL (0.4-5.4); Lymphocytes % (auto) 4.3 % (10.0-50.0); Mean Corpuscular Hemoglobin 22.5 pg (28.0-32.0); Mean Corpuscular Hgb Conc. 30.7 g/dL (32.0-36.0); Mean Corpuscular Volume 73.3 fL (80.0-100.0); Monocytes # (auto) 0.1 10 ^3/uL (0-1.3); Monocytes % (auto) 1.3 % (0.0-12.0); Neutrophils # (auto) 10.5 10 ^3/uL (1.6-8.6); Neutrophils % (auto) 94.3 % (37.0-80.0); Nucleated Red Blood Cells % 0.2 %; Platelet Count (auto) 271 10^3/uL (140-450); Red Blood Cells 5.73 10^6/uL (4.5-5.90); Red Cell Distribution Width 18.7 % (11.8-14.3); White Blood Cell 11.2 10^3/uL (4.4-10.8)
[2024-01-20 04:08] LABS: Albumin 3.9 g/dL (3.2-4.8); Alkaline Phosphatase 90 U/L (46-116); Anion Gap 5 (5-15); Aspartate Aminotransferase 35 U/L (13-40); BUN/Creatinine Ratio 12.9 (10.0-20.0); Blood Urea Nitrogen 9 mg/dL (9-23); Calcium 9.2 mg/dL (8.7-10.4); Chloride 103 mmol/L (98-107); Potassium 4.3 mmol/L (3.5-5.1); Sodium 140 mmol/L (136-145)
[2024-01-20 04:09] LABS: Bilirubin, Total 0.5 mg/dL (0.2-1.0); Total Protein 6.9 g/dL (5.7-8.2)
[2024-01-20 04:11] LABS: Alanine Aminotransferase 70 U/L (7-40); Carbon Dioxide 32 mmol/L (20-31); Glucose 162 mg/dL (74-106)
--- NOTE | 2024-01-20 04:14 | DVH ---
CHEST RADIOGRAPH Indication: position of the central line Technique: Single frontal view of the chest was obtained Comparison: XY CHEST XRAY 1 VIEW on DOS: 01/19/24, XY CHEST PORTABLE on DOS: 01/19/24, XY CHEST PORTABL E on DOS: 09/01/23 IMPRESSION: Cardiomediastinal silhouette is enlarged. There is increased pulmonary vascular congestion, similar p rior examination. Obscuration of the left hemidiaphragm may be on the basis of technique versus small pleural effusion. No discrete pneumothorax. Endotracheal tube and enteric tube are redemonstrated. Left IJ catheter tip is likely at the region of the brachiocephalic vein.
--- NOTE | 2024-01-20 06:21 | DVH ---
CHEST RADIOGRAPH Indication: L NECK CENTRAL VERIFICATION Technique: Single frontal view of the chest was obtained Comparison: XY CHEST PORTABLE on DOS: 01/19/24, XY CHEST XRAY 1 VIEW on DOS: 01/19/24, XY CHEST PORTABL E on DOS: 01/19/24, XY CHEST PORTABLE on DOS: 09/01/23, XY CHEST PORTABLE on DOS: 01/19/24 FINDINGS: Cardiomediastinal silhouette is enlarged. There is increased pulmonary vascular congestion, similar p rior examination. Obscuration of the left hemidiaphragm may be on the basis of technique versus small pleural effusion. No discrete pneumothorax. Endotracheal tube and enteric tube are redemonstrated. Left IJ catheter tip is likely at the region of the brachiocephalic vein. IMPRESSION: NO INTERVAL CHANGE.
--- NOTE | 2024-01-20 07:02 | ECG ---
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
--- NOTE | 2024-01-20 07:09 | DVHINCON2 ---
Date of service: Jan 20, 2024 History of Present Illness HPI Patient is 28 year old morbidly obese male who presented to ED with shortness of breath. He has been intubated for respiratory failure and in on vent. support. Information was obtained by reviewing the chart and communicating with staff. Cardiology is involved for cardiac aspects of care. There is no report of chest pain prior to presentation. Reportedly, patient has been intubated for snf previously for Asthma in other institution. Home Meds Active Scripts Budesonide-Formoterol Fumarate (Breyna 160-4.5 Mcg/Act) 1 Aer Aer, 1 AER IN DAILY for 30 Days, #1 AER Prov:PORTIA ROLON RESIDENT 09/03/23 Prednisone (Prednisone) 20 Mg Tab, 20 MG PO BID for 5 Days, #10 MG Prov:PORTIA ROLON RESIDENT 09/03/23 Reported Medications Latanoprost (Xalatan) 0.005 % Rosy, 1 DROP EACHEYE QPM 09/02/23 Dorzolamide-Timolol (Dorzolamide Hcl/Timolol M) 1 Ml Rosy, 1 DROP EACHEYE BID 09/02/23 Tetrabenazine (Tetrabenazine) 25 Mg Tab, 1 TAB PO DAILY 09/02/23 Trazodone Hcl (Trazodone Hcl) 100 Mg Tab, 1 TAB PO BID 09/02/23 Cholecalciferol (VITAMIN D3) 2,000 Unit Tab, 1 TAB PO DAILY 09/02/23 Atenolol (Atenolol) 50 Mg Tab, 1 TAB PO DAILY 09/02/23 Aripiprazole Monohydrate (Abilify Maintena) 400 Mg Inj, 400 MG IM MONTHLY for 28 Days, #1 09/02/23 Past Medical History Others PMH reportedly includes Morbid obesity, Asthma (with previous intubations), Autism, Schizophrenia and ANNETTE. Smokes Marijuana and drinks alcohol Family History Patient is intubated and information could not be obtained. Patient Family History: Self-harm G8 SISTER Drugs: Marijuana Review of Systems Comments Patient is intubated and information (SH/ROS/FH) could not be obtained. H&P Exam Vital Signs Vital Signs Date Time Temp Pulse Resp B/P (MAP) Pulse Ox O2 Delivery O2 Flow Rate FiO2 01/20/24 07:01 98.6 75 28 147/88 (107) 96 98.6 01/20/24 05:56 100 01/19/24 20:38 Bi-Pap+ 01/19/24 17:45 6 General Appeara: Obese Pulmonary/Respiratory: Rhonci Cardiovascular/Chest: Regular rate, Systolic murmur Peripheral Pulses: 2+ carotid (R), 2+ carotid (L), 2+ femoral (R), 2+ femoral (L), 2+ dorsalis pedis (R), 2+ dorsalis pedis (L), 2+ Radial (R), 2+ Radial (L) Abdominal Exam: Normal bowel sounds, Other (obese) Labs/Xrays Labs Test 01/20/24 03:20 01/20/24 01:45 01/20/24 01:36 01/19/24 23:34 Range/Units White Blood Count 11.2 H 4.4-10.8 10^3/uL Red Blood Count 5.73 4.5-5.90 10^6/uL Hemoglobin 12.9 L 13.5-17.5 g/dL Hematocrit 42.0 41.0-53.0 % Mean Corpuscular Volume 73.3 L 80.0-100.0 fL Mean Corpuscular Hemoglobin 22.5 L 28.0-32.0 pg Mean Corpuscular Hemoglobin Concent 30.7 L 32.0-36.0 g/dL Red Cell Distribution Width 18.7 H 11.8-14.3 % Platelet Count 271 140-450 10^3/uL Mean Platelet Volume 7.1 6.9-10.8 fL Neutrophils (%) (Auto) 94.3 H 37.0-80.0 % Lymphocytes (%) (Auto) 4.3 L 10.0-50.0 % Monocytes (%) (Auto) 1.3 0.0-12.0 % Eosinophils (%) (Auto) 0.0 0.0-7.0 % Basophils (%) (Auto) 0.1 0.0-2.0 % Neutrophils # (Auto) 10.5 H 1.6-8.6 10 ^3/uL Lymphocytes # (Auto) 0.5 0.4-5.4 10 ^3/uL Monocytes # (Auto) 0.1 0-1.3 10 ^3/uL Eosinophils # (Auto) 0 0-0.8 10 ^3/uL Basophils # (Auto) 0 0-0.2 10 ^3/uL Nucleated Red Blood Cells 0.2 % Sodium Level 140 136-145 mmol/L Potassium Level 4.3 3.5-5.1 mmol/L Chloride Level 103 98-107 mmol/L Carbon Dioxide Level 32 H 20-31 mmol/L Anion Gap 5 5-15 Blood Urea Nitrogen 9 9-23 mg/dL Creatinine 0.70 0.700-1.30 mg/dL Glomerular Filtration Rate Calc 128 >90 mL/min BUN/Creatinine Ratio 12.9 10.0-20.0 Serum Glucose 162 H 74-106 mg/dL Calcium Level 9.2 8.7-10.4 mg/dL Total Bilirubin 0.5 0.2-1.0 mg/dL Aspartate Amino Transferase (AST) 35 13-40 U/L Alanine Aminotransferase (ALT) 70 H 7-40 U/L Alkaline Phosphatase 90 46-116 U/L Total Protein 6.9 5.7-8.2 g/dL Albumin 3.9 3.2-4.8 g/dL Blood Gas Specimen Type Arterial Blood Gas Sample Site Left radial Blood Gas Patient Temperature 37.0 Arterial Blood Date Drawn [id number] Arterial Blood pH 7.428 7.350-7.450 Arterial Blood Partial Pressure CO2 51.5 H 35.0-48.0 mmHg Arterial Blood Partial Pressure O2 90.0 83.0-108.0 mmHg Arterial Blood HCO3 33.3 H 21.0-28.0 mmol/L Arterial Blood Oxygen Saturation 97.0 94.0-98.0 % Arterial Blood Base Excess 7.4 H -2.0-3.0 mmol/L Arterial Blood Oxyhemoglobin 95.4 94.0-98.0 % Arterial Blood Carboxyhemoglobin 1.3 0.5-1.5 % Arterial Blood Methemoglobin 0.4 0.0-1.5 % Giacomo Test Modified Blood Gas Total Hemoglobin 14.00 13.5-17.5 g/dL Blood Gas Set Respiration Rate 28.0 Blood Gas Modality Vent - ac Blood Gas Spontaneous Rate 28 FiO2 % 100.0 Blood Gas Tidal Volume 500.0 Blood Gas PEEP or CPAP 10.0 Troponin I High Sensitivity 132 *H </=54 ng/L Blood Gas Critical Value Read Back Yes Blood Gas Notified Whom Md. irene rolon Blood Gas Notified Time [id number] Blood Gas Notified By Rt b nelson Test 01/19/24 20:30 01/19/24 20:16 01/19/24 20:10 01/19/24 18:04 Range/Units Influenza Type A Antigen Negative Negative Influenza Type B Antigen Negative Negative SARS-CoV-2 Antigen (Rapid) Negative NEGATIVE Blood Gas EPAP 8 Blood Gas IPAP 20 Specimen Drawn By Nasra jiménez bone char operator Urine Opiates Screen Neg NEGATIVE Urine Fentanyl Screen Neg NEGATIVE Urine Barbiturates Screen Neg NEGATIVE Urine Phencyclidine Screen Neg NEGATIVE Urine Amphetamines Screen Neg NEGATIVE Urine Benzodiazepines Screen Pos NEGATIVE Urine Cocaine Screen Neg NEGATIVE Urine Cannabinoids Screen Pos NEGATIVE D-Dimer, Quantitative 0.43 0.0-0.49 mg/L FEU B-Type Natriuretic Peptide 561.97 0-100 pg/mL Test 01/19/24 17:56 Range/Units Blood Gas Liter Flow 6.00 Assessment/Plan Plan Patient is 28 year old morbidly obese male who presented to ED with shortness of breath. He has been intubated for respiratory failure and in on vent. support. Information was obtained by reviewing the chart and communicating with staff. Cardiology is involved for cardiac aspects of care. There is no report of chest pain prior to presentation. Reportedly, patient has been intubated for snf previously for Asthma in other institution. Intubated and on vent support. Morbidly obese. Does have right sided subclavian access. No JVD. Mucosa is pink and wet. No goiter. Scattered rhonchi is heard. Cardiac: RR, no thrill, no gallop. Abdomen is soft, obese and distended. BS is +. Ext reveal 2+ edema bilaterally. DP is 2+ bilateral PMH reportedly includes Morbid obesity, Asthma (with previous intubations), Autism, Schizophrenia and ANNETTE. Smokes Marijuana and drinks alcohol WBC: 11.6 to 11.2 D-dimer: 0.43 (wnl) Creat: 0.73 - 0.70 K: 4.1 - 4.3 BNP: 561.97 Trop (high sensitive): 61 - 62 - 131 - 132 - 91 TSH: 0.48 Urine toxicology was positive for Cannabinoids and Benzodiazpin Chest xry revealed: FINDINGS: Lines and Tubes: None Lungs: Obscuration of the left hemidiaphragm Diffuse interstitial prominence. No pneumothorax. Cardiomediastinal contours: Moderate cardiomegaly Bones: No acute osseous abnormality. IMPRESSION: Moderate cardiomegaly with findings suggestive of congestive heart failure. Possible left-sided pleural effusion. Repeat chest xry revealed: Endotracheal tube projects terminating 1.8 cm superior to the zbigniew. Enteric tube is projecting below the GE junction without visualization of the port or tip. Low lung volumes with bronchovascular crowding. Possible small left-sided pleural effusion and/or atelectasis. No pneumothorax. Repeat chest xry revealed: Cardiomediastinal silhouette is enlarged. There is increased pulmonary vascular congestion, similar prior examination. Obscuration of the left hemidiaphragm may be on the basis of technique versus small pleural effusion. No discrete pneumothorax. Endotracheal tube and enteric tube are redemonstrated. Left IJ catheter tip is likely at the region of the brachiocephalic vein. Repeat chest xry revealed: FINDINGS: Cardiomediastinal silhouette is enlarged. There is increased pulmonary vascular congestion, similar prior examination. Obscuration of the left hemidiaphragm may be on the basis of technique versus small pleural effusion. No discrete pneumothorax. Endotracheal tube and enteric tube are redemonstrated. Left IJ catheter tip is likely at the region of the brachiocephalic vein. IMPRESSION: NO INTERVAL CHANGE. Venous duplex of lower ext revealed: Impression: 1. No right or left femoropopliteal venous thrombosis. 2. Left common femoral vein and proximal superficial femoral vein are not visible and therefore thrombus can not be excluded in those areas. EKG revealed: Sinus tachycardia with non-specific STT changes Tele reveals Sinus rhythm Patient is 28 year old male with history of morbid obesity who presented with respiratory failure. Does have history of Asthma and reportedly has been intubated for it before. Trop has been mildly elevated. ACS is less likely and increase in troponin most likely represents demand physiology. Still, component of type 1 physiology cannot be completely ruled out. Acute respiratory failure Asthma Asthma exacerbation Morbid obesity Abnormal trop Questionable heart failure, acute Cardiac suggestion for management: Manage in ICU IV diuresis Follow up electrolytes and kidney function test and correct abnormalities. Keep potassium above 4 and magnesium above 2 Lovenox for now ASA for now Echocardiogram Follow up vital signs and correct hyper/hypotension Pulmonary Evaluation Further evaluation and management depends on the above and clinical course Thank you for consultation A total of 75 minutes was spent reviewing the patient record, examining the patient, making a diagnostic and therapeutic plan, discussing this plan with medical personnel, following up on diagnostic studies and following the patient for clinical stability excluding any and all procedures. At least 50% of this time was spent in direct, [id number] contact. Thank you for allowing me to participate in this patient's care. Further recommendations will depend on patient's clinical course. Please do not hesitate to contact me if you have any questions or concerns. This medical document was created using electronic medical record system with [employer] computerized dictation system. Although this document has been carefully reviewed, there may still be some phonetic and typographical errors. These areas are purely typographical due to the imperfection of the software programs, and do not reflect any compromise in the patient's medical care. Plan discussed with: Other (nurse) PARRIS MCKINNON MD Jan 20, 2024 07:09
--- NOTE | 2024-01-20 07:53 | DVHHP2 ---
Patient Family History: Self-harm G8 SISTER Allergies: Coded Allergies: NO KNOWN ALLERGIES (Unverified , 09/01/23) Home Meds Active Scripts Budesonide-Formoterol Fumarate (Breyna 160-4.5 Mcg/Act) 1 Aer Aer, 1 AER IN DAILY for 30 Days, #1 AER Prov:PORTIA ROLON RESIDENT 09/03/23 Prednisone (Prednisone) 20 Mg Tab, 20 MG PO BID for 5 Days, #10 MG [facility]/03/23 Reported Medications Latanoprost (Xalatan) 0.005 % Rosy, 1 DROP EACHEYE QPM 09/02/23 Dorzolamide-Timolol (Dorzolamide Hcl/Timolol M) 1 Ml Rosy, 1 DROP EACHEYE BID 09/02/23 Tetrabenazine (Tetrabenazine) 25 Mg Tab, 1 TAB PO DAILY 09/02/23 Trazodone Hcl (Trazodone Hcl) 100 Mg Tab, 1 TAB PO BID 09/02/23 Cholecalciferol (VITAMIN D3) 2,000 Unit Tab, 1 TAB PO DAILY 09/02/23 Atenolol (Atenolol) 50 Mg Tab, 1 TAB PO DAILY 09/02/23 Aripiprazole Monohydrate (Abilify Maintena) 400 Mg Inj, 400 MG IM MONTHLY for 28 Days, #1 09/02/23 Current Medications Current Medications Medications (Trade) Dose Ordered Sig/Reji Route PRN Reason Start Time Stop Time Status Last Admin Ondansetron HCl (Zofran) 4 mg Q4HP PRN IV NAUSEA / VOMITING 01/19/24 20:15 Docusate Sodium (Colace Capsule) 100 mg BIDPRN PRN PO FOR CONSTIPATION 01/19/24 20:15 Enoxaparin Sodium (Lovenox) 40 mg DAILY SC 01/20/24 10:00 01/20/24 07:10 DC Albuterol (Ventolin Medneb) 2.5 mg Q4HP PRN NEB SHORTNESS OF BREATH 01/19/24 20:15 Methylprednisolone Sodium Succinate (Solu Medrol) 40 mg Q6HR IV 01/20/24 00:00 01/20/24 06:11 Pantoprazole Sodium (Protonix) 40 mg DAILY IV 01/20/24 10:00 Nitroglycerin (Ntrostat Sublingual) 0.4 mg Q5MINP PRN SL FOR CHEST PAIN 01/19/24 20:15 Morphine Sulfate 2 mg Q30M PRN IV FOR CHEST PAIN 01/19/24 20:15 Midazolam HCl 50 ml @ 1 mls/hr Q24H IV 01/19/24 21:30 01/19/24 21:30 Propofol 100 ml @ 0 mls/hr Q0M IV 01/19/24 21:45 01/19/24 22:31 Fentanyl Citrate 250 ml @ 5 mls/hr Q24H IV 01/19/24 21:45 01/19/24 22:15 Enoxaparin Sodium (Lovenox) 180 mg Q12HR SC 01/20/24 10:00 UNV Aspirin 81 mg DAILY NG 01/20/24 10:00 UNV Atorvastatin Calcium (Lipitor) 40 mg HS PO 01/20/24 22:00 UNV Furosemide (Lasix Injection) 40 mg BIDD IV 01/20/24 18:00 UNV Vital Signs Vital Signs Date Time Temp Pulse Resp B/P (MAP) Pulse Ox O2 Delivery O2 Flow Rate FiO2 01/20/24 07:01 98.6 75 28 147/88 (107) 96 98.6 01/20/24 05:56 100 01/19/24 20:38 Bi-Pap+ 01/19/24 17:45 6 Results Labs Test 01/20/24 07:34 01/20/24 03:20 01/20/24 01:45 01/19/24 23:34 Range/Units White Blood Count 11.2 H 4.4-10.8 10^3/uL Red Blood Count 5.73 4.5-5.90 10^6/uL Hemoglobin 12.9 L 13.5-17.5 g/dL Hematocrit 42.0 41.0-53.0 % Mean Corpuscular Volume 73.3 L 80.0-100.0 fL Mean Corpuscular Hemoglobin 22.5 L 28.0-32.0 pg Mean Corpuscular Hemoglobin Concent 30.7 L 32.0-36.0 g/dL Red Cell Distribution Width 18.7 H 11.8-14.3 % Platelet Count 271 140-450 10^3/uL Mean Platelet Volume 7.1 6.9-10.8 fL Neutrophils (%) (Auto) 94.3 H 37.0-80.0 % Lymphocytes (%) (Auto) 4.3 L 10.0-50.0 % Monocytes (%) (Auto) 1.3 0.0-12.0 % Eosinophils (%) (Auto) 0.0 0.0-7.0 % Basophils (%) (Auto) 0.1 0.0-2.0 % Neutrophils # (Auto) 10.5 H 1.6-8.6 10 ^3/uL Lymphocytes # (Auto) 0.5 0.4-5.4 10 ^3/uL Monocytes # (Auto) 0.1 0-1.3 10 ^3/uL Eosinophils # (Auto) 0 0-0.8 10 ^3/uL Basophils # (Auto) 0 0-0.2 10 ^3/uL Nucleated Red Blood Cells 0.2 % Sodium Level 140 136-145 mmol/L Potassium Level 4.3 3.5-5.1 mmol/L Chloride Level 103 98-107 mmol/L Carbon Dioxide Level 32 H 20-31 mmol/L Anion Gap 5 5-15 Blood Urea Nitrogen 9 9-23 mg/dL Creatinine 0.70 0.700-1.30 mg/dL Glomerular Filtration Rate Calc 128 >90 mL/min BUN/Creatinine Ratio 12.9 10.0-20.0 Serum Glucose 162 H 74-106 mg/dL Calcium Level 9.2 8.7-10.4 mg/dL Total Bilirubin 0.5 0.2-1.0 mg/dL Aspartate Amino Transferase (AST) 35 13-40 U/L Alanine Aminotransferase (ALT) 70 H 7-40 U/L Alkaline Phosphatase 90 46-116 U/L Total Protein 6.9 5.7-8.2 g/dL Albumin 3.9 3.2-4.8 g/dL Blood Gas Specimen Type Arterial Blood Gas Sample Site Left radial Blood Gas Patient Temperature 37.0 Arterial Blood Date Drawn [id number] Arterial Blood pH 7.428 7.350-7.450 Arterial Blood Partial Pressure CO2 51.5 H 35.0-48.0 mmHg Arterial Blood Partial Pressure O2 90.0 83.0-108.0 mmHg Arterial Blood HCO3 33.3 H 21.0-28.0 mmol/L Arterial Blood Oxygen Saturation 97.0 94.0-98.0 % Arterial Blood Base Excess 7.4 H -2.0-3.0 mmol/L Arterial Blood Oxyhemoglobin 95.4 94.0-98.0 % Arterial Blood Carboxyhemoglobin 1.3 0.5-1.5 % Arterial Blood Methemoglobin 0.4 0.0-1.5 % Giacomo Test Modified Blood Gas Total Hemoglobin 14.00 13.5-17.5 g/dL Blood Gas Set Respiration Rate 28.0 Blood Gas Modality Vent - ac Blood Gas Spontaneous Rate 28 FiO2 % 100.0 Blood Gas Tidal Volume 500.0 Blood Gas PEEP or CPAP 10.0 Blood Gas Critical Value Read Back Yes Blood Gas Notified Whom Md. irene rolon Blood Gas Notified Time [id number] Blood Gas Notified By Rt shailesh damon Test 01/19/24 20:30 01/19/24 20:16 01/19/24 20:10 01/19/24 18:04 Range/Units Influenza Type A Antigen Negative Negative Influenza Type B Antigen Negative Negative SARS-CoV-2 Antigen (Rapid) Negative NEGATIVE Blood Gas EPAP 8 Blood Gas IPAP 20 Specimen Drawn By Nasra jiménez practicing md anesthesiologist Urine Opiates Screen Neg NEGATIVE Urine Fentanyl Screen Neg NEGATIVE Urine Barbiturates Screen Neg NEGATIVE Urine Phencyclidine Screen Neg NEGATIVE Urine Amphetamines Screen Neg NEGATIVE Urine Benzodiazepines Screen Pos NEGATIVE Urine Cocaine Screen Neg NEGATIVE Urine Cannabinoids Screen Pos NEGATIVE D-Dimer, Quantitative 0.43 0.0-0.49 mg/L FEU B-Type Natriuretic Peptide 561.97 0-100 pg/mL Test 01/19/24 17:56 Range/Units Blood Gas Liter Flow 6.00 VIK COBOS NP Jan 20, 2024 07:53
--- NOTE | 2024-01-20 07:54 | DVHPN2 ---
Progress Note - Dictate Date Seen: Jan 20, 2024 Medical Necessity Reason Pt with a Central, PICC or Fol: No vital signs Vital Sign Date Time Temp Pulse Resp B/P (MAP) Pulse Ox O2 Delivery O2 Flow Rate FiO2 01/20/24 07:01 98.6 75 28 147/88 (107) 96 98.6 01/20/24 05:56 100 01/19/24 20:38 Bi-Pap+ 01/19/24 17:45 6 Total Intake and Output 01/19/24 01/19/24 01/20/24 15:00 23:00 07:00 Intake Total 223 ml 329.0 ml Balance 223 ml 329.0 ml medications Current Medications Medications Dose Ordered Sig/Reji Route Start Time Stop Time Status Last Admin Dose Admin Ondansetron HCl 4 mg Q4HP PRN IV 01/19/24 20:15 Docusate Sodium 100 mg BIDPRN PRN PO 01/19/24 20:15 Albuterol 2.5 mg Q4HP PRN NEB 01/19/24 20:15 Methylprednisolone Sodium Succinate 40 mg Q6HR IV 01/20/24 00:00 01/20/24 06:11 Pantoprazole Sodium 40 mg DAILY IV 01/20/24 10:00 Nitroglycerin 0.4 mg Q5MINP PRN SL 01/19/24 20:15 Morphine Sulfate 2 mg Q30M PRN IV 01/19/24 20:15 Midazolam HCl 50 ml @ 1 mls/hr Q24H IV 01/19/24 21:30 01/19/24 21:30 Propofol 100 ml @ 0 mls/hr Q0M IV 01/19/24 21:45 01/19/24 22:31 Fentanyl Citrate 250 ml @ 5 mls/hr Q24H IV 01/19/24 21:45 01/19/24 22:15 Enoxaparin Sodium 180 mg Q12HR SC 01/20/24 10:00 UNV Aspirin 81 mg DAILY NG 01/20/24 10:00 UNV Atorvastatin Calcium 40 mg HS PO 01/20/24 22:00 UNV Furosemide 40 mg BIDD IV 01/20/24 18:00 UNV objective General Appearance: alert, no distress HEENT: EOMI, PERRLA, normal external inspect of ears, no icterus, no nasal drainage Neck: no carotid bruit, no jugular venous distention (JVD), no lymphadenopathy Chest: normal thorax Respiratory: clear to auscultation Cardiovascular: regular rate and rhythm, no diastolic murmur, no jugular venous distention (JVD), no rub, no systolic murmur Abdominal: soft, no hepatomegaly, no mass, no splenomegaly, no tenderness Genitourinary: grossly normal external Musculoskeletal: no joint tenderness, no swelling Extremities: normal pulses, no calf tenderness, no clubbing, no cyanosis, no edema Skin: no bruising, no jaundice, no rash Neurological: alert, No focal deficit laboratory and microbiology Laboratory Tests 01/20/24 03:20 Test 01/20/24 03:20 Range/Units Serum Glucose 162 H 74-106 mg/dL Problem List 1. Asthma with acute exacerbation Pulmonary consult, monitoring 2. Acute hypoxic respiratory failure requiring intubation Pulmonary Consult 3. Shizophrenia Monitoring 4. Autism Medication, monitoring 5. Elevated Troponin Cardiology Consult, monitoring 6. Cannabis Use Education Assessment/Plan Subjective: Patient has no acute complaints. Objective: Patient was admitted for acute hypoxic respiratory failure due to asthma exacerbation. History of autism reported by the patients mother. Previously hospitalized at [facility] approximately 46 years ago for the same condition. Emergent intubation performed in the emergency room due to respiratory failure. Pulmonary has now been consulted. Patient is sedated with Propofol, Fentanyl, and Versed. Cardiology has also been consulted. Plan: Continue current treatment. Continue med neb treatments, pulmonary consult for ventilator management, and monitor daily labs. Plan discussed with: Patient, Other VIK COBOS NP Jan 20, 2024 07:54
[2024-01-20 08:10] LABS: Base Excess 1.8 mmol/L (-2.0-3.0)
[2024-01-20] MEDS: ASPirin 81 mg TAB NG SCH (09:22)
[2024-01-20] MEDS: PANTOPRAZOLE 40 MG/10 ML VIAL INJ IV SCH (09:22)
[2024-01-20] MEDS: ENOXAPARIN SOD 150 MG/1 ML SYRINGE SC SCH (09:23)
[2024-01-20] MEDS ORDERED: ENOXAPARIN SOD 40 MG/0.4 ML SYRINGE SC SCH (10:00)
[2024-01-20] MEDS ORDERED: ENOXAPARIN SOD 100 MG/1 ML SYRINGE SC SCH (10:00)
[2024-01-20] MEDS ORDERED: [UNRECOGNIZED DRUG - OTHER] IM SCH (11:30)
[2024-01-20] MEDS: LISINOPRIL 20 MG TAB PO SCH (12:05)
[2024-01-20] MEDS ORDERED: FUROSEMIDE 40 MG/4 ML VIAL IV SCH (18:00)
[2024-01-20] MEDS: LATANOPROST 0.005 % OPTH(EYE) SOL 2.5ML EACHEYE SCH (18:01)
[2024-01-20] MEDS: ALBUTEROL SULF 2.5 MG/0.5ML(0.5%) NEB SOLN NEB PRN (19:35)
[2024-01-20] MEDS: NITROGLYCERIN 50MG/250ML 250 ML IV SCH (20:30)
[2024-01-20] MEDS: ALBUTEROL SULF 2.5 MG/0.5ML(0.5%) NEB SOLN NEB SCH (22:16)
[2024-01-20] MEDS: IPRATROPIUM BROM 0.5 MG/2.5ML INH SOL NEB SCH (22:17)
[2024-01-20] MEDS: ATORVASTATIN 20 MG TAB PO SCH (22:44)
[2024-01-21] VITALS (99 sets, daily range): BP systolic 106–143; BP diastolic 54–92; PULSE 67–115; RESP 28–30; TEMP 98.4–99.7; O2SAT 86–95
--- NOTE | 2024-01-21 08:15 | DVHPN2 ---
Progress Note - Dictate Date Seen: Jan 21, 2024 Medical Necessity Reason Pt with a Central, PICC or Fol: No vital signs Vital Sign Date Time Temp Pulse Resp B/P (MAP) Pulse Ox O2 Delivery O2 Flow Rate FiO2 01/21/24 07:00 28 91 Mechanical Ventilator+ 100 100 01/21/24 06:45 99.3 74 133/78 (96) 210.7 01/19/24 17:45 6 Total Intake and Output 01/20/24 01/20/24 01/21/24 15:00 23:00 07:00 Intake Total 164.4 ml 286.6 ml Output Total 700 ml 1350 ml Balance -700 ml 164.4 ml -1063.4 ml medications Current Medications Medications Dose Ordered Sig/Reji Route Start Time Stop Time Status Last Admin Dose Admin Ondansetron HCl 4 mg Q4HP PRN IV 01/19/24 20:15 Docusate Sodium 100 mg BIDPRN PRN PO 01/19/24 20:15 Albuterol 2.5 mg Q4HP PRN NEB 01/19/24 20:15 01/20/24 19:35 2.5 MG Methylprednisolone Sodium Succinate 40 mg Q6HR IV 01/20/24 00:00 01/21/24 06:28 40 MG Pantoprazole Sodium 40 mg DAILY IV 01/20/24 10:00 01/20/24 09:22 40 MG Nitroglycerin 0.4 mg Q5MINP PRN SL 01/19/24 20:15 Morphine Sulfate 2 mg Q30M PRN IV 01/19/24 20:15 Midazolam HCl 50 ml @ 1 mls/hr Q24H IV 01/19/24 21:30 01/21/24 05:15 10 MLS/HR Propofol 100 ml @ 0 mls/hr Q0M IV 01/19/24 21:45 01/21/24 05:16 21.6 MLS/HR Fentanyl Citrate 250 ml @ 5 mls/hr Q24H IV 01/19/24 21:45 01/21/24 03:53 10 MLS/HR Aspirin 81 mg DAILY NG 01/20/24 10:00 01/20/24 09:22 81 MG Atorvastatin Calcium 40 mg HS PO 01/20/24 22:00 01/20/24 22:44 40 MG Enoxaparin Sodium 150 mg Q12HR SC 01/20/24 10:00 01/20/24 22:44 150 MG Latanoprost 1 drop QPM EACHEYE 01/20/24 18:00 01/20/24 18:01 1 DROP Patient Own Medication 400 mg MONTHLY IM 01/20/24 11:30 Lisinopril 20 mg DAILY PO 01/20/24 11:30 01/20/24 12:05 20 MG Furosemide 40 mg DAILY IV 01/21/24 10:00 Nitroglycerin 250 ml @ 1.5 mls/hr Q24H IV 01/20/24 20:30 Albuterol 2.5 mg Q4HR NEB 01/20/24 22:00 01/21/24 06:40 2.5 MG Ipratropium [place] 0.5 mg Q4HR NEB 01/20/24 22:00 01/21/24 06:40 0.5 MG laboratory and microbiology Laboratory Tests 01/20/24 03:20 Test 01/20/24 03:20 Range/Units Serum Glucose 162 H 74-106 mg/dL Assessment/Plan Patient is 28 year old morbidly obese male who presented to ED with shortness of breath. He has been intubated for respiratory failure and in on vent. support. Information was obtained by reviewing the chart and communicating with staff. Cardiology is involved for cardiac aspects of care. There is no report of chest pain prior to presentation. Reportedly, patient has been intubated for halfway previously for Asthma in other institution. Intubated and on vent support. Morbidly obese. Does have right sided subclavian access. No JVD. Mucosa is pink and wet. No goiter. Scattered rhonchi is heard. Cardiac: RR, no thrill, no gallop. Abdomen is soft, obese and distended. BS is +. Ext reveal 2+ edema bilaterally. DP is 2+ bilateral PMH reportedly includes Morbid obesity, Asthma (with previous intubations), Autism, Schizophrenia and ANNETTE. Smokes Marijuana and drinks alcohol WBC: 11.6 to 11.2 D-dimer: 0.43 (wnl) Creat: 0.73 - 0.70 K: 4.1 - 4.3 BNP: 561.97 Trop (high sensitive): 61 - 62 - 131 - 132 - 91 - 82 TSH: 0.48 Urine toxicology was positive for Cannabinoids and Benzodiazpin Chest xry revealed: FINDINGS: Lines and Tubes: None Lungs: Obscuration of the left hemidiaphragm Diffuse interstitial prominence. No pneumothorax. Cardiomediastinal contours: Moderate cardiomegaly Bones: No acute osseous abnormality. IMPRESSION: Moderate cardiomegaly with findings suggestive of congestive heart failure. Possible left-sided pleural effusion. Repeat chest xry revealed: Endotracheal tube projects terminating 1.8 cm superior to the zbigniew. Enteric tube is projecting below the GE junction without visualization of the port or tip. Low lung volumes with bronchovascular crowding. Possible small left-sided pleural effusion and/or atelectasis. No pneumothorax. Repeat chest xry revealed: Cardiomediastinal silhouette is enlarged. There is increased pulmonary vascular congestion, similar prior examination. Obscuration of the left hemidiaphragm may be on the basis of technique versus small pleural effusion. No discrete pneumothorax. Endotracheal tube and enteric tube are redemonstrated. Left IJ catheter tip is likely at the region of the brachiocephalic vein. Repeat chest xry revealed: FINDINGS: Cardiomediastinal silhouette is enlarged. There is increased pulmonary vascular congestion, similar prior examination. Obscuration of the left hemidiaphragm may be on the basis of technique versus small pleural effusion. No discrete pneumothorax. Endotracheal tube and enteric tube are redemonstrated. Left IJ catheter tip is likely at the region of the brachiocephalic vein. IMPRESSION: NO INTERVAL CHANGE. Venous duplex of lower ext revealed: Impression: 1. No right or left femoropopliteal venous thrombosis. 2. Left common femoral vein and proximal superficial femoral vein are not visible and therefore thrombus can not be excluded in those areas. EKG revealed: Sinus tachycardia with non-specific STT changes Tele reveals Sinus rhythm Echocardiogram revealed: Technically limited study secondary to poor acoustic windows. Left ventricle: Left ventricle was normal-sized with normal systolic function. LVEF was 60-65%. There was no gross wall motion abnormality observed. Right ventricle was not well visualized but it was dilated. Left atrium was normal-sized. Right atrium was not well visualized. Aortic valve was trileaflet and normal. There was no aortic insufficiency/stenosis. There was trivial mitral and tricuspid regurgitation. There was mild pulmonary valve insufficiency. As there was no good tricuspid regurgitation jet, right ventricular systolic pressure could not be estimated. There was no pericardial effusion. Patient is 28 year old male with history of morbid obesity who presented with respiratory failure. Does have history of Asthma and reportedly has been intubated for it before. Trop has been mildly elevated. ACS is less likely and increase in troponin most likely represents demand physiology. Still, component of type 1 physiology cannot be completely ruled out. Echo revealed dilated RV. As there was no good TR jet, RVSP could not be estimated. Pulmonary Hypertension cannot be ruled out. Acute respiratory failure Asthma Asthma exacerbation Morbid obesity Abnormal trop Questionable heart failure, acute Cardiac suggestion for management: Manage in ICU IV diuresis Follow up electrolytes and kidney function test and correct abnormalities. Keep potassium above 4 and magnesium above 2 Lovenox for now ASA for now Follow up vital signs and correct hyper/hypotension Pulmonary Evaluation Further evaluation and management depends on the above and clinical course A total of 75 minutes was spent reviewing the patient record, examining the patient, making a diagnostic and therapeutic plan, discussing this plan with medical personnel, following up on diagnostic studies and following the patient for clinical stability excluding any and all procedures. At least 50% of this time was spent in direct, [id number] contact. Thank you for allowing me to participate in this patient's care. Further recommendations will depend on patient's clinical course. Please do not hesitate to contact me if you have any questions or concerns. This medical document was created using electronic medical record system with [employer] computerized dictation system. Although this document has been carefully reviewed, there may still be some phonetic and typographical errors. These areas are purely typographical due to the imperfection of the software programs, and do not reflect any compromise in the patient's medical care. Plan discussed with: Other (nurse) PARRIS MCKINNON MD Jan 21, 2024 08:15
--- NOTE | 2024-01-21 08:19 | DVHSR ---
APPROVED REPORT EXAM: LIMITED Two-dimensional and M-mode echocardiogram with Doppler and color Doppler. Blood Pressure: 147/88 mmHg INDICATION chf RISK FACTORS Obesity: Height: 5'7, Weight: 396 DIMENSIONS LVDd5.3 (3.8-5.7cm)LA (2D) (1.9-4.0cm)Aortic Root3.2 (2.0-3.7cm) LVDs3.9 (2.5-4.0cm)LA (MM) (1.9-4.0cm)Aortic Cusp Exc1.9 (1.5-2.0cm) EF (%) 50.0 (55-70%)Rt. Atrium (1.9-4.0cm)Asc. Aorta3.0 cm IVSd0.8 (0.7-1.1cm)RV (D) (1.8-2.4cm) PWd1.0 (0.7-1.1cm) Mitral Valve MitralMitral Stenosis E/A ratio0.02D MVAcm2 Aortic Valve Aortic ValveAortic Stenosis LVOT Diameter2.3 (1.8-2.4cm)Doppler AVAcm2 Pulmonic Valve V21.09m/s Other Information Quality : LimitedRhythm : Technically limited study due to body habitus.patient position.on vent. Conclusion Technically limited study secondary to poor acoustic windows. Left ventricle: Left ventricle was normal-sized with normal systolic function. LVEF was 60-65%. Th ere was no gross wall motion abnormality observed. Right ventricle was not well visualized but it was dilated. Left atrium was normal-sized. Right atrium was not well visualized. Aortic valve was trileaflet and normal. There was no aortic insufficiency/stenosis. There was trivi al mitral and tricuspid regurgitation. There was mild pulmonary valve insufficiency. As there was no good tricuspid regurgitation jet, right ventricular systolic pressure could not be es timated. There was no pericardial effusion.
[2024-01-21 08:55] LABS: Base Excess 5.1 mmol/L (-2.0-3.0)
[2024-01-21 09:08] LABS: Eosinophils # (auto) 0 10 ^3/uL (0-0.8); Mean Corpuscular Hemoglobin 22.1 pg (28.0-32.0); Monocytes # (auto) 0.5 10 ^3/uL (0-1.3); Red Blood Cells 5.89 10^6/uL (4.5-5.90); White Blood Cell 14.2 10^3/uL (4.4-10.8)
[2024-01-21 09:10] LABS: Basophils # (auto) 0.1 10 ^3/uL (0-0.2); Basophils % (auto) 0.5 % (0.0-2.0); Hematocrit 42.8 % (41.0-53.0); Lymphocytes # (auto) 0.7 10 ^3/uL (0.4-5.4); Lymphocytes % (auto) 4.9 % (10.0-50.0); Mean Corpuscular Hgb Conc. 30.4 g/dL (32.0-36.0); Mean Corpuscular Volume 72.6 fL (80.0-100.0); Monocytes % (auto) 3.6 % (0.0-12.0); Neutrophils # (auto) 12.9 10 ^3/uL (1.6-8.6); Nucleated Red Blood Cells % 0.3 %; Platelet Count (auto) 292 10^3/uL (140-450); Red Cell Distribution Width 19.2 % (11.8-14.3)
[2024-01-21 09:24] LABS: Albumin 3.9 g/dL (3.2-4.8); Alkaline Phosphatase 75 U/L (46-116); Anion Gap 5 (5-15); Aspartate Aminotransferase 31 U/L (13-40); BUN/Creatinine Ratio 19.4 (10.0-20.0); Blood Urea Nitrogen 13 mg/dL (9-23); Calcium 9.6 mg/dL (8.7-10.4); Chloride 106 mmol/L (98-107); Potassium 4.1 mmol/L (3.5-5.1); Sodium 143 mmol/L (136-145)
[2024-01-21 09:25] LABS: Bilirubin, Total 0.5 mg/dL (0.2-1.0); Carbon Dioxide 32 mmol/L (20-31); Glucose 142 mg/dL (74-106); Total Protein 6.8 g/dL (5.7-8.2)
[2024-01-21 09:26] LABS: Alanine Aminotransferase 55 U/L (7-40)
[2024-01-21 09:46] LABS: INR 1.11 (0.9-1.15); Partial Thromboplastin Time 27.7 SEC (24.5-34.5); Prothrombin Time 11.7 sec (9.3-11.8)
[2024-01-21] MEDS: FUROSEMIDE 40 MG/4 ML VIAL IV SCH (10:40)
--- NOTE | 2024-01-21 10:53 | DVH ---
EXAM: XY CHEST PORTABLE Indication: PULMONARY VASCULAR CONGESTION, S.O.B Technique: Single frontal view of the chest was obtained Comparison: XY CHEST XRAY 1 VIEW on DOS: 01/20/24, XY CHEST PORTABLE on DOS: 01/19/24, XY CHEST XRAY 1 VIEW on DOS: 01/19/24, XY CHEST PORTABLE on DOS: 01/19/24, XY CHEST PORTABLE on DOS: 09/01/23 FINDINGS: Lines and Tubes: Endotracheal tube projects 5 cm above level of the zbigniew. Enteric tube tip projects over the expected region of the stomach. Left internal jugular central venous catheter tip projects over the brachiocephalic vein. Lungs: Low lung volumes. Pleura: No effusion. No pneumothorax. Cardiomediastinal contours: Unremarkable Bones: No acute osseous abnormality. IMPRESSION: Improving pulmonary edema compared to prior exam.
--- NOTE | 2024-01-21 14:30 | DVHPN2 ---
Progress Note - Dictate Date Seen: Jan 21, 2024 Medical Necessity Reason Pt with a Central, PICC or Fol: No vital signs Vital Sign Date Time Temp Pulse Resp B/P (MAP) Pulse Ox O2 Delivery O2 Flow Rate FiO2 01/21/24 12:30 98.4 84 28 133/79 (97) 91 209.1 01/21/24 12:00 Mechanical Ventilator+ 100 100 01/19/24 17:45 6 Total Intake and Output 01/20/24 01/20/24 01/21/24 14:59 22:59 06:59 Intake Total 130.8 ml 320.2 ml Output Total 700 ml 1350 ml Balance -700 ml 130.8 ml -1029.8 ml medications Current Medications Medications Dose Ordered Sig/Reji Route Start Time Stop Time Status Last Admin Dose Admin Ondansetron HCl 4 mg Q4HP PRN IV 01/19/24 20:15 Docusate Sodium 100 mg BIDPRN PRN PO 01/19/24 20:15 Albuterol 2.5 mg Q4HP PRN NEB 01/19/24 20:15 01/20/24 19:35 2.5 MG Methylprednisolone Sodium Succinate 40 mg Q6HR IV 01/20/24 00:00 01/21/24 12:24 40 MG Pantoprazole Sodium 40 mg DAILY IV 01/20/24 10:00 01/21/24 10:40 40 MG Nitroglycerin 0.4 mg Q5MINP PRN SL 01/19/24 20:15 Morphine Sulfate 2 mg Q30M PRN IV 01/19/24 20:15 Midazolam HCl 50 ml @ 1 mls/hr Q24H IV 01/19/24 21:30 01/21/24 10:56 10 MLS/HR Propofol 100 ml @ 0 mls/hr Q0M IV 01/19/24 21:45 01/21/24 12:31 27 MLS/HR Fentanyl Citrate 250 ml @ 5 mls/hr Q24H IV 01/19/24 21:45 01/21/24 03:53 10 MLS/HR Aspirin 81 mg DAILY NG 01/20/24 10:00 01/21/24 10:38 81 MG Atorvastatin Calcium 40 mg HS PO 01/20/24 22:00 01/20/24 22:44 40 MG Enoxaparin Sodium 150 mg Q12HR SC 01/20/24 10:00 01/21/24 10:39 150 MG Latanoprost 1 drop QPM EACHEYE 01/20/24 18:00 01/20/24 18:01 1 DROP Patient Own Medication 400 mg MONTHLY IM 01/20/24 11:30 Lisinopril 20 mg DAILY PO 01/20/24 11:30 01/20/24 12:05 20 MG Furosemide 40 mg DAILY IV 01/21/24 10:00 01/21/24 10:40 40 MG Nitroglycerin 250 ml @ 1.5 mls/hr Q24H IV 01/20/24 20:30 Albuterol 2.5 mg Q4HR NEB 01/20/24 22:00 01/21/24 14:10 2.5 MG Ipratropium [place] 0.5 mg Q4HR NEB 01/20/24 22:00 01/21/24 14:10 0.5 MG objective General Appearance: alert, no distress HEENT: EOMI, PERRLA, normal external inspect of ears, no icterus, no nasal drainage Neck: no carotid bruit, no jugular venous distention (JVD), no lymphadenopathy Chest: normal thorax Respiratory: clear to auscultation Cardiovascular: regular rate and rhythm, no diastolic murmur, no jugular venous distention (JVD), no rub, no systolic murmur Abdominal: soft, no hepatomegaly, no mass, no splenomegaly, no tenderness Genitourinary: grossly normal external Musculoskeletal: no joint tenderness, no swelling Extremities: normal pulses, no calf tenderness, no clubbing, no cyanosis, no edema Skin: no bruising, no jaundice, no rash Neurological: alert, No focal deficit laboratory and microbiology Laboratory Tests 01/21/24 08:48 Test 01/21/24 08:48 Range/Units Serum Glucose 142 H 74-106 mg/dL Problem List 1. Asthma with acute exacerbation Pulmonary consult, monitoring 2. Acute hypoxic respiratory failure requiring intubation Pulmonary Consult 3. Shizophrenia Monitoring 4. Autism Medication, monitoring 5. Elevated Troponin Cardiology Consult, monitoring 6. Cannabis Use Education Assessment/Plan Subjective: Patient remains intubated and sedated. Objective: Patient was admitted for respiratory failure. Patient has a history of asthma. Patient was emergently intubated in the emergency room. Patient was seen by pulmonary. WBC count was elevated at 14, however patient has been started on IV Solu-Medrol. There is questionable CHF, Lasix has been ordered and cardiology has been consulted. Cardiogram was done and results are pending. Chest x-ray shows improving pulmonary edema. Plan: Current treatment. Continue IV Solu-Medrol. Continue diuretics. Continue ventilator management per pulmonary. I did discuss plan of care with patient's mother yesterday. Plan discussed with: Patient, Other VIK COBOS MANAGER CLINICAL APPLICATIONS Jan 21, 2024 14:30
[2024-01-21 16:54] LABS: Potassium 4.2 mmol/L (3.5-5.1)
[2024-01-21 17:01] LABS: Magnesium 2.2 mg/dL (1.6-2.6)
[2024-01-21 17:03] LABS: Phosphorus 3.9 mg/dL (2.4-5.1)
[2024-01-21] MEDS: DOXYCYCLINE 100MG/250ML 250 ML IV SCH (17:22)
--- NOTE | 2024-01-21 20:36 | DVHINCON2 ---
Date of service: Jan 20, 2024 Referring Physician Irma Velasquez NP Reason for Consultation Acute hypoxic respiratory failure requiring mechanical ventilator and asthma exacerbation. History of Present Illness A 28-year-old man with past medical history including asthma, schizophrenia, and autism who presented to the ED on 01/19/24 complaining of shortness of breath, cough and sputum.. Patient has had yellow colored sputum for 2-3 days. Patient has also been experiencing shortness of breath. Patient has not received any relief from albuterol. Per EMS, patient was saturating 80-85% and after nebulization with albuterol, it was 97%. Patient denies any chest pain. Patient was admitted for further care and pulmonary consultation is requested for evaluation and management of acute hypoxic respiratory failure requiring mechanical ventilator and asthma exacerbation. Review of Systems: Unable to be obtained d/t intubated status. Past Medical History: Asthma, schizophrenia, and autism Past Surgical History: None. Medications: Reviewed. Allergies: No known drug allergies. Family History: Sister with psych history (self-harm). Social History: Nonsmoker. No alcohol or illicit drug use. Family History: Self-harm G8 SISTER Allergies: Coded Allergies: NO KNOWN ALLERGIES (Unverified , 09/01/23) Home Meds Reported Medications Metformin Hydrochloride (Metformin Hcl) 500 Mg Tab, 1 TAB PO BID for 90 Days, #180 01/20/24 Beclomethasone Dipropionate (Qvar Redihaler) 40 Mcg/Act Aer, 1 PUFF IN BID for 60 Days, #10.6 01/20/24 Albuterol Sulfate (Albuterol Sulfate Hfa) 108 Mcg/Act Aer, 2 PUFF IN Q4HR PRN for COUGH for 16 Days, #8.5 01/20/24 Latanoprost (Xalatan) 0.005 % Rosy, 1 DROP EACHEYE QPM 09/02/23 Dorzolamide-Timolol (Dorzolamide Hcl/Timolol M) 1 Ml Rosy, 1 DROP EACHEYE BID 09/02/23 Tetrabenazine (Tetrabenazine) 25 Mg Tab, 1 TAB PO DAILY 09/02/23 Trazodone Hcl (Trazodone Hcl) 100 Mg Tab, 1 TAB PO BID 09/02/23 Cholecalciferol (VITAMIN D3) 2,000 Unit Tab, 1 TAB PO DAILY 09/02/23 Atenolol (Atenolol) 50 Mg Tab, 1 TAB PO DAILY 09/02/23 Aripiprazole Monohydrate (Abilifchristen Maintena) 400 Mg Inj, 400 MG IM MONTHLY for 28 Days, #1 09/02/23 Current Medications Current Medications Medications (Trade) Dose Ordered Sig/Reji Route PRN Reason Start Time Stop Time Status Last Admin Atorvastatin Calcium (Lipitor) 40 mg HS PO 01/20/24 22:00 01/20/24 22:44 Furosemide (Lasix Injection) 40 mg DAILY IV 01/21/24 10:00 01/21/24 10:40 Albuterol (Ventolin Medneb) 2.5 mg Q4HR NEB 01/20/24 22:00 01/21/24 20:15 Ipratropium [place] (Atrovent Medneb) 0.5 mg Q4HR NEB 01/20/24 22:00 01/21/24 20:15 Doxycycline Hyclate 250 ml @ 125 mls/hr Q12H IV 01/21/24 14:30 01/21/24 17:22 Vital Signs Vital Signs Date Time Temp Pulse Resp B/P (MAP) Pulse Ox O2 Delivery O2 Flow Rate FiO2 01/21/24 20:30 110/60 01/21/24 20:15 72 28 94 100 01/21/24 18:46 99.5 211.1 01/21/24 18:00 Mechanical Ventilator+ 01/19/24 17:45 6 Physical Exam Gen.: Patient lying in bed in medical ICU. Sedated, intubated on mechanical ventilator. Head: Normocephalic, atraumatic. Eyes: PERRLA. Ears: Normal external anatomy. Throat: Endotracheal tube and orogastric tube in place. Neck: Supple, trachea midline. Chest: Transmitted breath sounds bilaterally. Decreased air entry bilaterally. No wheezing. Bibasilar crackles. Cardiovascular: Positive S1, positive S2. Regular rate and rhythm. Abdomen: Positive bowel sounds in all 4 quadrants. Soft, nontender, nondistended. : Man in place. Normal external genitalia. Rectal: Deferred. Skin: Warm, dry. Intact. Extremities: 2+ radial pulses bilaterally. No lower extremity edema. Neuro: Sedated. Labs/Diagnostic Data Labs Test 01/21/24 16:23 01/21/24 08:49 01/21/24 08:48 01/20/24 10:15 Range/Units Potassium Level 4.2 3.5-5.1 mmol/L Phosphorus Level 3.9 2.4-5.1 mg/dL Magnesium Level 2.2 1.6-2.6 mg/dL Blood Gas Specimen Type Arterial Blood Gas Sample Site Right radial Blood Gas Patient Temperature 37.0 Arterial Blood Date Drawn [id number] Arterial Blood pH 7.471 H 7.350-7.450 Arterial Blood Partial Pressure CO2 41.0 35.0-48.0 mmHg Arterial Blood Partial Pressure O2 61.1 L 83.0-108.0 mmHg Arterial Blood HCO3 29.2 H 21.0-28.0 mmol/L Arterial Blood Oxygen Saturation 90.9 L 94.0-98.0 % Arterial Blood Base Excess 5.1 H -2.0-3.0 mmol/L Arterial Blood Oxyhemoglobin 89.7 L 94.0-98.0 % Arterial Blood Carboxyhemoglobin 1.0 0.5-1.5 % Arterial Blood Methemoglobin 0.3 0.0-1.5 % Giacomo Test Modified Blood Gas Total Hemoglobin 14.00 13.5-17.5 g/dL Blood Gas Set Respiration Rate 28.0 Blood Gas Modality Vent - ac FiO2 % 100.0 Blood Gas Tidal Volume 500.0 Blood Gas PEEP or CPAP 10.0 White Blood Count 14.2 #H 4.4-10.8 10^3/uL Red Blood Count 5.89 4.5-5.90 10^6/uL Hemoglobin 13.0 L 13.5-17.5 g/dL Hematocrit 42.8 41.0-53.0 % Mean Corpuscular Volume 72.6 L 80.0-100.0 fL Mean Corpuscular Hemoglobin 22.1 L 28.0-32.0 pg Mean Corpuscular Hemoglobin Concent 30.4 L 32.0-36.0 g/dL Red Cell Distribution Width 19.2 H 11.8-14.3 % Platelet Count 292 140-450 10^3/uL Mean Platelet Volume 7.2 6.9-10.8 fL Neutrophils (%) (Auto) 91.0 H 37.0-80.0 % Lymphocytes (%) (Auto) 4.9 L 10.0-50.0 % Monocytes (%) (Auto) 3.6 0.0-12.0 % Eosinophils (%) (Auto) 0.0 0.0-7.0 % Basophils (%) (Auto) 0.5 0.0-2.0 % Neutrophils # (Auto) 12.9 H 1.6-8.6 10 ^3/uL Lymphocytes # (Auto) 0.7 0.4-5.4 10 ^3/uL Monocytes # (Auto) 0.5 0-1.3 10 ^3/uL Eosinophils # (Auto) 0 0-0.8 10 ^3/uL Basophils # (Auto) 0.1 0-0.2 10 ^3/uL Nucleated Red Blood Cells 0.3 % Prothrombin Time 11.7 9.3-11.8 sec Prothrombin Time INR 1.11 0.9-1.15 Activated Partial Thromboplast Time 27.7 24.5-34.5 SEC Sodium Level 143 136-145 mmol/L Chloride Level 106 98-107 mmol/L Carbon Dioxide Level 32 H 20-31 mmol/L Anion Gap 5 5-15 Blood Urea Nitrogen 13 9-23 mg/dL Creatinine 0.67 L 0.700-1.30 mg/dL Glomerular Filtration Rate Calc 130 >90 mL/min BUN/Creatinine Ratio 19.4 10.0-20.0 Serum Glucose 142 H 74-106 mg/dL Calcium Level 9.6 8.7-10.4 mg/dL Total Bilirubin 0.5 0.2-1.0 mg/dL Aspartate Amino Transferase (AST) 31 13-40 U/L Alanine Aminotransferase (ALT) 55 H 7-40 U/L Alkaline Phosphatase 75 46-116 U/L Total Protein 6.8 5.7-8.2 g/dL Albumin 3.9 3.2-4.8 g/dL Troponin I High Sensitivity 82 *H </=54 ng/L Test 01/20/24 07:34 01/20/24 01:45 01/19/24 23:34 01/19/24 20:30 Range/Units Thyroid Stimulating Hormone (TSH) 0.48 L 0.55-4.78 uIU/mL Blood Gas Spontaneous Rate 28 Blood Gas Critical Value Read Back Yes Blood Gas Notified Whom Md. irene rolon Blood Gas Notified Time [id number] Blood Gas Notified By Rt shailesh damon Influenza Type A Antigen Negative Negative Influenza Type B Antigen Negative Negative SARS-CoV-2 Antigen (Rapid) Negative NEGATIVE Test 01/19/24 20:16 01/19/24 20:10 01/19/24 18:04 01/19/24 17:56 Range/Units Blood Gas EPAP 8 Blood Gas IPAP 20 Specimen Drawn By Nasra jiménez potato spotter Urine Opiates Screen Neg NEGATIVE Urine Fentanyl Screen Neg NEGATIVE Urine Barbiturates Screen Neg NEGATIVE Urine Phencyclidine Screen Neg NEGATIVE Urine Amphetamines Screen Neg NEGATIVE Urine Benzodiazepines Screen Pos NEGATIVE Urine Cocaine Screen Neg NEGATIVE Urine Cannabinoids Screen Pos NEGATIVE D-Dimer, Quantitative 0.43 0.0-0.49 mg/L FEU B-Type Natriuretic Peptide 561.97 0-100 pg/mL Blood Gas Liter Flow 6.00 Microbiology Date/Time Source Procedure Growth Status 01/19/24 21:00 Sputum Gram Stain - Final Resulted 01/19/24 21:00 Sputum Respiratory Culture - Preliminary Resulted Assessment Impression: Acute hypoxic respiratory failure On mechanical ventilator Acute exacerbation of asthma Elevated Troponin Schizophrenia Autism Cannabinoid Use Morbid obesity BMI 60.5 Pulmonary edema Plan: s/p intubation on mechanical ventilator. CXR image and report reviewed. Devices in place. Increased pulmonary vascular congestion, similar to prior examination. Obscuration of the left hemidiaphragm, possible small pleural effusion. No discrete pneumothorax. ABG reviewed, notable for alkalemia. On AC mode with RR 28, VT 500, PEEP 10, FiO2 100% Titrate FIO2 to keep O2 saturation above 90%. VAP bundle. Daily ABG and CXR while intubated Sedate for ventilator synchrony Pt does not tolerate turns. Derecruitment. Turn carefull. Elevated Troponin - Follow up Cardiology recs Continue bronchodilators Antibiotics. F/u cultures. Start pressors if necessary to maintain a mean arterial blood pressure greater than 65 mmHg. Monitor renal function Monitor electrolytes. Supplement as necessary. Monitor ins and outs. Diet and lifestyle modifications for weight reduction Morbid obesity - complicates all care GI prophylaxis. DVT prophylaxis. Prognosis: Poor given patient's multiple co-morbidities. Condition: Critical Rest of plan per hospitalist and other consultants. A total of 36 minutes of critical care time was spent reviewing the patient record, examining the patient, making a diagnostic and therapeutic plan, discussing this plan with the medical personnel, following up on diagnostic studies and following the patient for clinical stability excluding any and all procedures. At least 50% of this time was spent in direct, [id number] contact. Thank you Irma Velasquez NP, for allowing me to participate in this patient's care. Further recommendations will depend on the patient's clinical course. Please do not hesitate to contact me if you have any questions or concerns. This medical document was created using an electronic medical record system with [employer] dictation system. Although these documentations are being carefully reviewed, there may still be some phonetic and typographical changes. The errors are purely typographical, due to imperfection on the software program, and do not reflect any compromise in the patient's medical care. Plan discussed with: Spouse (Mother), Other (RN/RADHA Velasquez/) VERÓNICA MERCER MD Jan 21, 2024 20:35
--- NOTE | 2024-01-21 20:37 | DVHPN2 ---
Progress Note - Dictate Date Seen: Jan 21, 2024 Medical Necessity Reason Pt with a Central, PICC or Fol: No Subjective Patient seen and examined at bedside. Sedated, intubated on mechanical ventilator. Overnight events reviewed. vital signs Vital Sign Date Time Temp Pulse Resp B/P (MAP) Pulse Ox O2 Delivery O2 Flow Rate FiO2 01/21/24 20:30 110/60 01/21/24 20:15 72 28 94 100 01/21/24 18:46 99.5 211.1 01/21/24 18:00 Mechanical Ventilator+ 01/19/24 17:45 6 Total Intake and Output 01/20/24 01/20/24 01/21/24 15:00 23:00 07:00 Intake Total 164.4 ml 329.7 ml Output Total 700 ml 1350 ml Balance -700 ml 164.4 ml -1020.3 ml medications Current Medications Medications Dose Ordered Sig/Reji Route Start Time Stop Time Status Last Admin Dose Admin Ondansetron HCl 4 mg Q4HP PRN IV 01/19/24 20:15 Docusate Sodium 100 mg BIDPRN PRN PO 01/19/24 20:15 Albuterol 2.5 mg Q4HP PRN NEB 01/19/24 20:15 01/20/24 19:35 Methylprednisolone Sodium Succinate 40 mg Q6HR IV 01/20/24 00:00 01/21/24 17:31 Pantoprazole Sodium 40 mg DAILY IV 01/20/24 10:00 01/21/24 10:40 Nitroglycerin 0.4 mg Q5MINP PRN SL 01/19/24 20:15 Morphine Sulfate 2 mg Q30M PRN IV 01/19/24 20:15 Midazolam HCl 50 ml @ 1 mls/hr Q24H IV 01/19/24 21:30 01/21/24 15:41 Propofol 100 ml @ 0 mls/hr Q0M IV 01/19/24 21:45 01/21/24 15:40 Fentanyl Citrate 250 ml @ 5 mls/hr Q24H IV 01/19/24 21:45 01/21/24 03:53 Aspirin 81 mg DAILY NG 01/20/24 10:00 01/21/24 10:38 Atorvastatin Calcium 40 mg HS PO 01/20/24 22:00 01/20/24 22:44 Enoxaparin Sodium 150 mg Q12HR SC 01/20/24 10:00 01/21/24 10:39 Latanoprost 1 drop QPM EACHEYE 01/20/24 18:00 01/21/24 18:00 Patient Own Medication 400 mg MONTHLY IM 01/20/24 11:30 Lisinopril 20 mg DAILY PO 01/20/24 11:30 01/20/24 12:05 Furosemide 40 mg DAILY IV 01/21/24 10:00 01/21/24 10:40 Nitroglycerin 250 ml @ 1.5 mls/hr Q24H IV 01/20/24 20:30 Albuterol 2.5 mg Q4HR NEB 01/20/24 22:00 01/21/24 20:15 Ipratropium [place] 0.5 mg Q4HR NEB 01/20/24 22:00 01/21/24 20:15 Doxycycline Hyclate 250 ml @ 125 mls/hr Q12H IV 01/21/24 14:30 01/21/24 17:22 objective Gen.: Patient lying in bed in medical ICU. Sedated, intubated on mechanical ventilator. Head: Normocephalic, atraumatic. Eyes: PERRLA. Ears: Normal external anatomy. Throat: Endotracheal tube and orogastric tube in place. Neck: Supple, trachea midline. Chest: Transmitted breath sounds bilaterally. Decreased air entry bilaterally. No wheezing. Bibasilar crackles. Cardiovascular: Positive S1, positive S2. Regular rate and rhythm. Abdomen: Positive bowel sounds in all 4 quadrants. Soft, nontender, nondistended. : Man in place. Normal external genitalia. Rectal: Deferred. Skin: Warm, dry. Intact. Extremities: 2+ radial pulses bilaterally. No lower extremity edema. Neuro: Sedated. laboratory and microbiology Laboratory Tests 01/21/24 16:23 01/21/24 08:48 Test 01/21/24 08:48 Range/Units Serum Glucose 142 H 74-106 mg/dL Assessment/Plan Impression: Acute hypoxic respiratory failure On mechanical ventilator Acute exacerbation of asthma Elevated Troponin Schizophrenia Autism Cannabinoid Use Morbid obesity Events: Remains on vent support On AC mode with RR 28, VT 500, PEEP 10, FiO2 100% NTG drip. Sedated on Propofol, Fentanyl, Versed. Continue antibiotics Follow up cultures. Diurese w/ Lasix 40 mg IV QD Monitor renal function Monitor electrolytes. Supplement as necessary. Monitor ins and outs. Labs and imaging reviewed. Rest of plan as noted below. Plan: s/p intubation on mechanical ventilator. CXR image and report reviewed. Devices in place. Increased pulmonary vascular congestion, similar to prior examination. Obscuration of the left hemidiaphragm, possible small pleural effusion. No discrete pneumothorax. ABG reviewed, notable for alkalemia. On AC mode with RR 28, VT 500, PEEP 10, FiO2 100% Titrate FIO2 to keep O2 saturation above 90%. VAP bundle. Daily ABG and CXR while intubated Sedate for ventilator synchrony Elevated Troponin - Cardiology recs appreciated. Continue bronchodilators Antibiotics. F/u cultures. Start pressors if necessary to maintain a mean arterial blood pressure greater than 65 mmHg. Monitor renal function Monitor electrolytes. Supplement as necessary. Monitor ins and outs. Diet and lifestyle modifications for weight reduction Morbid obesity - complicates all care GI prophylaxis. DVT prophylaxis. Prognosis: Poor given patient's multiple co-morbidities. Condition: Critical Rest of plan per hospitalist and other consultants. A total of 35 minutes of critical care time was spent reviewing the patient record, examining the patient, making a diagnostic and therapeutic plan, discussing this plan with the medical personnel, following up on diagnostic studies and following the patient for clinical stability excluding any and all procedures. At least 50% of this time was spent in direct, [id number] contact. Thank you Irma Velasquez NP, for allowing me to participate in this patient's care. Further recommendations will depend on the patient's clinical course. Please do not hesitate to contact me if you have any questions or concerns. This medical document was created using an electronic medical record system with [employer] dictation system. Although these documentations are being carefully reviewed, there may still be some phonetic and typographical changes. The errors are purely typographical, due to imperfection on the software program, and do not reflect any compromise in the patient's medical care. Plan discussed with: Other (SAIGE Carter) Critical Care Time(min): 35 VERÓNICA MERCER MD Jan 21, 2024 20:36
[2024-01-22] VITALS (96 sets, daily range): BP systolic 91–138; BP diastolic 39–83; PULSE 50–83; RESP 26–29; TEMP 99–99.9; O2SAT 58–98
--- NOTE | 2024-01-22 08:23 | DVHPN2 ---
Progress Note - Dictate Date Seen: Jan 22, 2024 Medical Necessity Reason Pt with a Central, PICC or Fol: No vital signs Vital Sign Date Time Temp Pulse Resp B/P (MAP) Pulse Ox O2 Delivery O2 Flow Rate FiO2 01/22/24 06:58 53 28 119/69 (86) 94 100 01/22/24 06:45 99.5 211.1 01/22/24 05:58 Mechanical Ventilator+ Total Intake and Output 01/21/24 01/21/24 01/22/24 15:00 23:00 07:00 Intake Total 409.7 ml 845.1 ml 829.6 ml Output Total 2300 ml 300 ml 675 ml Balance -1890.3 ml 545.1 ml 154.6 ml medications Current Medications Medications Dose Ordered Sig/Reji Route Start Time Stop Time Status Last Admin Dose Admin Ondansetron HCl 4 mg Q4HP PRN IV 01/19/24 20:15 Docusate Sodium 100 mg BIDPRN PRN PO 01/19/24 20:15 Albuterol 2.5 mg Q4HP PRN NEB 01/19/24 20:15 01/20/24 19:35 2.5 MG Methylprednisolone Sodium Succinate 40 mg Q6HR IV 01/20/24 00:00 01/22/24 05:41 40 MG Pantoprazole Sodium 40 mg DAILY IV 01/20/24 10:00 01/21/24 10:40 40 MG Nitroglycerin 0.4 mg Q5MINP PRN SL 01/19/24 20:15 Morphine Sulfate 2 mg Q30M PRN IV 01/19/24 20:15 Midazolam HCl 50 ml @ 1 mls/hr Q24H IV 01/19/24 21:30 01/22/24 06:34 10 MLS/HR Propofol 100 ml @ 0 mls/hr Q0M IV 01/19/24 21:45 01/22/24 06:38 16.2 MLS/HR Fentanyl Citrate 250 ml @ 5 mls/hr Q24H IV 01/19/24 21:45 01/21/24 21:43 15 MLS/HR Aspirin 81 mg DAILY NG 01/20/24 10:00 01/21/24 10:38 81 MG Atorvastatin Calcium 40 mg HS PO 01/20/24 22:00 01/21/24 21:46 40 MG Enoxaparin Sodium 150 mg Q12HR SC 01/20/24 10:00 01/21/24 21:47 150 MG Latanoprost 1 drop QPM EACHEYE 01/20/24 18:00 01/21/24 18:00 1 DROP Patient Own Medication 400 mg MONTHLY IM 01/20/24 11:30 Lisinopril 20 mg DAILY PO 01/20/24 11:30 01/20/24 12:05 20 MG Furosemide 40 mg DAILY IV 01/21/24 10:00 01/21/24 10:40 40 MG Nitroglycerin 250 ml @ 1.5 mls/hr Q24H IV 01/20/24 20:30 Albuterol 2.5 mg Q4HR NEB 01/20/24 22:00 01/22/24 06:58 2.5 MG Ipratropium [place] 0.5 mg Q4HR NEB 01/20/24 22:00 01/22/24 06:58 0.5 MG Doxycycline Hyclate 250 ml @ 125 mls/hr Q12H IV 01/21/24 14:30 01/22/24 02:03 125 MLS/HR laboratory and microbiology Laboratory Tests 01/21/24 16:23 01/21/24 08:48 Test 01/21/24 08:48 Range/Units Serum Glucose 142 H 74-106 mg/dL Assessment/Plan Patient is 28 year old morbidly obese male who presented to ED with shortness of breath. He has been intubated for respiratory failure and in on vent. support. Information was obtained by reviewing the chart and communicating with staff. Cardiology is involved for cardiac aspects of care. There is no report of chest pain prior to presentation. Reportedly, patient has been intubated for custodial previously for Asthma in other institution. Intubated and on vent support. Morbidly obese. Does have right sided subclavian access. No JVD. Mucosa is pink and wet. No goiter. Scattered rhonchi is heard. Cardiac: RR, no thrill, no gallop. Abdomen is soft, obese and distended. BS is +. Ext reveal 2+ edema bilaterally. DP is 2+ bilateral PMH reportedly includes Morbid obesity, Asthma (with previous intubations), Autism, Schizophrenia and ANNETTE. Smokes Marijuana and drinks alcohol WBC: 11.6 to 11.2 to 14.2 D-dimer: 0.43 (wnl) Creat: 0.73 - 0.70 - 0.67 K: 4.1 - 4.3 - 4.1 - 4.2 BNP: 561.97 Trop (high sensitive): 61 - 62 - 131 - 132 - 91 - 82 TSH: 0.48 Urine toxicology was positive for Cannabinoids and Benzodiazpin Chest xry revealed: FINDINGS: Lines and Tubes: None Lungs: Obscuration of the left hemidiaphragm Diffuse interstitial prominence. No pneumothorax. Cardiomediastinal contours: Moderate cardiomegaly Bones: No acute osseous abnormality. IMPRESSION: Moderate cardiomegaly with findings suggestive of congestive heart failure. Possible left-sided pleural effusion. Repeat chest xry revealed: Endotracheal tube projects terminating 1.8 cm superior to the zbigniew. Enteric tube is projecting below the GE junction without visualization of the port or tip. Low lung volumes with bronchovascular crowding. Possible small left-sided pleural effusion and/or atelectasis. No pneumothorax. Repeat chest xry revealed: Cardiomediastinal silhouette is enlarged. There is increased pulmonary vascular congestion, similar prior examination. Obscuration of the left hemidiaphragm may be on the basis of technique versus small pleural effusion. No discrete pneumothorax. Endotracheal tube and enteric tube are redemonstrated. Left IJ catheter tip is likely at the region of the brachiocephalic vein. Repeat chest xry revealed: FINDINGS: Cardiomediastinal silhouette is enlarged. There is increased pulmonary vascular congestion, similar prior examination. Obscuration of the left hemidiaphragm may be on the basis of technique versus small pleural effusion. No discrete pneumothorax. Endotracheal tube and enteric tube are redemonstrated. Left IJ catheter tip is likely at the region of the brachiocephalic vein. IMPRESSION: NO INTERVAL CHANGE. Repeat chest xry revealed: IMPRESSION: Improving pulmonary edema compared to prior exam. Venous duplex of lower ext revealed: Impression: 1. No right or left femoropopliteal venous thrombosis. 2. Left common femoral vein and proximal superficial femoral vein are not visible and therefore thrombus can not be excluded in those areas. EKG revealed: Sinus tachycardia with non-specific STT changes Tele reveals Sinus rhythm Echocardiogram revealed: Technically limited study secondary to poor acoustic windows. Left ventricle: Left ventricle was normal-sized with normal systolic function. LVEF was 60-65%. There was no gross wall motion abnormality observed. Right ventricle was not well visualized but it was dilated. Left atrium was normal-sized. Right atrium was not well visualized. Aortic valve was trileaflet and normal. There was no aortic insufficiency/stenosis. There was trivial mitral and tricuspid regurgitation. There was mild pulmonary valve insufficiency. As there was no good tricuspid regurgitation jet, right ventricular systolic pressure could not be estimated. There was no pericardial effusion. Patient is 28 year old male with history of morbid obesity who presented with respiratory failure. Does have history of Asthma and reportedly has been intubated for it before. Trop has been mildly elevated. ACS is less likely and increase in troponin most likely represents demand physiology. Still, component of type 1 physiology cannot be completely ruled out. Echo revealed dilated RV. As there was no good TR jet, RVSP could not be estimated. Pulmonary Hypertension cannot be ruled out. Pulmonary on board. Acute respiratory failure Asthma Asthma exacerbation Morbid obesity Abnormal trop Questionable heart failure, acute Cardiac suggestion for management: Manage in ICU IV diuresis Follow up electrolytes and kidney function test and correct abnormalities. Keep potassium above 4 and magnesium above 2 Lovenox for now ASA for now Follow up vital signs and correct hyper/hypotension. If needed add pressure support to keep MAP above 65 mmHg Pulmonary follow up Further evaluation and management depends on the above and clinical course A total of 75 minutes was spent reviewing the patient record, examining the patient, making a diagnostic and therapeutic plan, discussing this plan with medical personnel, following up on diagnostic studies and following the patient for clinical stability excluding any and all procedures. At least 50% of this time was spent in direct, [id number] contact. Thank you for allowing me to participate in this patient's care. Further recommendations will depend on patient's clinical course. Please do not hesitate to contact me if you have any questions or concerns. This medical document was created using electronic medical record system with [employer] dictation system. Although this document has been carefully reviewed, there may still be some phonetic and typographical errors. These areas are purely typographical due to the imperfection of the software programs, and do not reflect any compromise in the patient's medical care. Plan discussed with: Other (nurse) PARRIS MCKINNON MD Jan 22, 2024 08:23
[2024-01-22 08:34] LABS: Base Excess -0.2 mmol/L (-2.0-3.0)
--- NOTE | 2024-01-22 12:57 | DVHPN2 ---
Progress Note - Dictate Date Seen: Jan 22, 2024 Medical Necessity Reason Pt with a Central, PICC or Fol: No vital signs Vital Sign Date Time Temp Pulse Resp B/P (MAP) Pulse Ox O2 Delivery O2 Flow Rate FiO2 01/22/24 12:33 118/64 01/22/24 12:00 28 94 Mechanical Ventilator+ 95 95 01/22/24 12:00 62 01/22/24 09:02 99.9 211.8 Total Intake and Output 01/21/24 01/21/24 01/22/24 15:00 23:00 07:00 Intake Total 409.7 ml 845.1 ml 863.5 ml Output Total 2300 ml 300 ml 675 ml Balance -1890.3 ml 545.1 ml 188.5 ml medications Current Medications Medications Dose Ordered Sig/Reji Route Start Time Stop Time Status Last Admin Dose Admin Ondansetron HCl 4 mg Q4HP PRN IV 01/19/24 20:15 Docusate Sodium 100 mg BIDPRN PRN PO 01/19/24 20:15 Albuterol 2.5 mg Q4HP PRN NEB 01/19/24 20:15 01/20/24 19:35 2.5 MG Methylprednisolone Sodium Succinate 40 mg Q6HR IV 01/20/24 00:00 01/22/24 11:19 40 MG Pantoprazole Sodium 40 mg DAILY IV 01/20/24 10:00 01/22/24 10:16 40 MG Nitroglycerin 0.4 mg Q5MINP PRN SL 01/19/24 20:15 Morphine Sulfate 2 mg Q30M PRN IV 01/19/24 20:15 Midazolam HCl 50 ml @ 1 mls/hr Q24H IV 01/19/24 21:30 01/22/24 10:18 13 MLS/HR Propofol 100 ml @ 0 mls/hr Q0M IV 01/19/24 21:45 01/22/24 06:38 16.2 MLS/HR Fentanyl Citrate 250 ml @ 5 mls/hr Q24H IV 01/19/24 21:45 01/22/24 12:33 22.5 MLS/HR Aspirin 81 mg DAILY NG 01/20/24 10:00 01/22/24 10:17 81 MG Atorvastatin Calcium 40 mg HS PO 01/20/24 22:00 01/21/24 21:46 40 MG Enoxaparin Sodium 150 mg Q12HR SC 01/20/24 10:00 01/22/24 10:17 150 MG Latanoprost 1 drop QPM EACHEYE 01/20/24 18:00 01/21/24 18:00 1 DROP Patient Own Medication 400 mg MONTHLY IM 01/20/24 11:30 Lisinopril 20 mg DAILY PO 01/20/24 11:30 01/22/24 11:16 20 MG Furosemide 40 mg DAILY IV 01/21/24 10:00 01/22/24 10:16 40 MG Nitroglycerin 250 ml @ 1.5 mls/hr Q24H IV 01/20/24 20:30 Albuterol 2.5 mg Q4HR NEB 01/20/24 22:00 01/22/24 10:00 2.5 MG Ipratropium [place] 0.5 mg Q4HR NEB 01/20/24 22:00 01/22/24 10:00 0.5 MG Doxycycline Hyclate 250 ml @ 125 mls/hr Q12H IV 01/21/24 14:30 01/22/24 02:03 125 MLS/HR objective General Appearance: alert, no distress HEENT: EOMI, PERRLA, normal external inspect of ears, no icterus, no nasal drainage Neck: no carotid bruit, no jugular venous distention (JVD), no lymphadenopathy Chest: normal thorax Respiratory: clear to auscultation Cardiovascular: regular rate and rhythm, no diastolic murmur, no jugular venous distention (JVD), no rub, no systolic murmur Abdominal: soft, no hepatomegaly, no mass, no splenomegaly, no tenderness Genitourinary: grossly normal external Musculoskeletal: no joint tenderness, no swelling Extremities: normal pulses, no calf tenderness, no clubbing, no cyanosis, no edema Skin: no bruising, no jaundice, no rash Neurological: alert, No focal deficit laboratory and microbiology Laboratory Tests 01/21/24 16:23 01/21/24 08:48 Test 01/21/24 08:48 Range/Units Serum Glucose 142 H 74-106 mg/dL Problem List 1. Asthma with acute exacerbation Pulmonary consult, monitoring 2. Acute hypoxic respiratory failure requiring intubation Pulmonary Consult 3. Schizophrenia Monitoring 4. Autism Medication, monitoring 5. Elevated Troponin Cardiology Consult, monitoring 6. Cannabis Use Education Assessment/Plan Subjective: Patient is awake and alert. Objective: Patient is currently remaining calm. Mom is listening to music with patient. Patient is able to open eyes and follow commands. Patient's chest x-ray shows resolving pulmonary edema. Plan: Continue current treatment. Continue IV Solu-Medrol. Monitor daily labs. Plan discussed with: Patient, Other VIK COBOS NP Jan 22, 2024 12:57
[2024-01-22] MEDS: Jevity 1.2 Cal/Fiber 1 Liter GT SCH (14:54)
[2024-01-22] MEDS: FUROSEMIDE 40 MG/4 ML VIAL IV SCH (16:58)
[2024-01-22] MEDS: FREE WATER GT SCH (17:07)
--- NOTE | 2024-01-22 22:00 | DVHPN2 ---
Progress Note - Dictate Date Seen: Jan 22, 2024 Medical Necessity Reason Pt with a Central, PICC or Fol: Yes The following are medically ne: Reyes Catheter Reason for reyes catheter: Strict I&O Subjective Patient seen and examined at bedside. Sedated, intubated on mechanical ventilator. Overnight events reviewed. vital signs Vital Sign Date Time Temp Pulse Resp B/P (MAP) Pulse Ox O2 Delivery O2 Flow Rate FiO2 01/22/24 21:57 115/69 01/22/24 21:37 58 58 01/22/24 20:13 28 90 01/22/24 20:00 Mechanical Ventilator+ 01/22/24 19:02 99.7 211.5 Total Intake and Output 01/21/24 01/21/24 01/22/24 15:00 23:00 07:00 Intake Total 409.7 ml 845.1 ml 863.5 ml Output Total 2300 ml 300 ml 675 ml Balance -1890.3 ml 545.1 ml 188.5 ml medications Current Medications Medications Dose Ordered Sig/Reji Route Start Time Stop Time Status Last Admin Dose Admin Ondansetron HCl 4 mg Q4HP PRN IV 01/19/24 20:15 Docusate Sodium 100 mg BIDPRN PRN PO 01/19/24 20:15 Albuterol 2.5 mg Q4HP PRN NEB 01/19/24 20:15 01/20/24 19:35 2.5 MG Methylprednisolone Sodium Succinate 40 mg Q6HR IV 01/20/24 00:00 01/22/24 16:58 40 MG Pantoprazole Sodium 40 mg DAILY IV 01/20/24 10:00 01/22/24 10:16 40 MG Nitroglycerin 0.4 mg Q5MINP PRN SL 01/19/24 20:15 Morphine Sulfate 2 mg Q30M PRN IV 01/19/24 20:15 Midazolam HCl 50 ml @ 1 mls/hr Q24H IV 01/19/24 21:30 01/22/24 20:55 14 MLS/HR Propofol 100 ml @ 0 mls/hr Q0M IV 01/19/24 21:45 01/22/24 06:38 16.2 MLS/HR Fentanyl Citrate 250 ml @ 5 mls/hr Q24H IV 01/19/24 21:45 01/22/24 21:57 27.5 MLS/HR Aspirin 81 mg DAILY NG 01/20/24 10:00 01/22/24 10:17 81 MG Atorvastatin Calcium 40 mg HS PO 01/20/24 22:00 01/22/24 21:36 40 MG Enoxaparin Sodium 150 mg Q12HR SC 01/20/24 10:00 01/22/24 21:36 150 MG Latanoprost 1 drop QPM EACHEYE 01/20/24 18:00 01/22/24 17:08 1 DROP Patient Own Medication 400 mg MONTHLY IM 01/20/24 11:30 Lisinopril 20 mg DAILY PO 01/20/24 11:30 01/22/24 11:16 20 MG Nitroglycerin 250 ml @ 1.5 mls/hr Q24H IV 01/20/24 20:30 Albuterol 2.5 mg Q4HR NEB 01/20/24 22:00 01/22/24 19:12 2.5 MG Ipratropium [place] 0.5 mg Q4HR NEB 01/20/24 22:00 01/22/24 19:12 0.5 MG Doxycycline Hyclate 250 ml @ 125 mls/hr Q12H IV 01/21/24 14:30 01/22/24 14:54 125 MLS/HR Furosemide 40 mg BIDD IV 01/22/24 18:00 01/22/24 16:58 40 MG Enteral Nutritional Formula 1,000 ml 60ML/HR GT 01/22/24 14:00 01/22/24 14:54 1,000 ML Purified Water 100 ml Q6HR GT 01/22/24 18:00 01/22/24 17:07 100 ML objective Gen.: Patient lying in bed in medical ICU. Sedated, intubated on mechanical ventilator. Head: Normocephalic, atraumatic. Eyes: PERRLA. Ears: Normal external anatomy. Throat: Endotracheal tube and orogastric tube in place. Neck: Supple, trachea midline. Chest: Transmitted breath sounds bilaterally. Decreased air entry bilaterally. No wheezing. Bibasilar crackles. Cardiovascular: Positive S1, positive S2. Regular rate and rhythm. Abdomen: Positive bowel sounds in all 4 quadrants. Soft, nontender, nondistended. : Reyes in place. Normal external genitalia. Rectal: Deferred. Skin: Warm, dry. Intact. Extremities: 2+ radial pulses bilaterally. No lower extremity edema. Neuro: Sedated. laboratory and microbiology Laboratory Tests 01/21/24 16:23 01/21/24 08:48 Test 01/21/24 08:48 Range/Units Serum Glucose 142 H 74-106 mg/dL Assessment/Plan Impression: Acute hypoxic respiratory failure On mechanical ventilator Acute exacerbation of asthma Elevated Troponin Schizophrenia Autism Cannabinoid Use Morbid obesity BMI 60.5 Pulmonary edema Events: Remains on vent support On AC mode with RR 28, VT 500, PEEP 10, FiO2 100% Sedated on Propofol, Fentanyl, Versed. ABG reviewed, compensated. Poor PF ratio. CXR notable for pulmonary vascular congestion. Continue bronchodilators IV steroids Continue antibiotics Follow up cultures. Diurese w/ Lasix, dose increased to 40 mg IV BID Monitor renal function Monitor electrolytes. Supplement as necessary. Monitor ins and outs. Labs and imaging reviewed. Rest of plan as noted below. Plan: s/p intubation on mechanical ventilator. On AC mode with RR 28, VT 500, PEEP 10, FiO2 100% Titrate FIO2 to keep O2 saturation above 90%. VAP bundle. Daily ABG and CXR while intubated Sedate for ventilator synchrony Pt does not tolerate turns. Derecruitment. Turn carefully. Elevated Troponin - Cardiology recs appreciated. Continue bronchodilators Antibiotics. F/u cultures. Start pressors if necessary to maintain a mean arterial blood pressure greater than 65 mmHg. Monitor renal function Monitor electrolytes. Supplement as necessary. Monitor ins and outs. Diet and lifestyle modifications for weight reduction Morbid obesity - complicates all care GI prophylaxis. DVT prophylaxis. Prognosis: Poor given patient's multiple co-morbidities. Condition: Critical Rest of plan per hospitalist and other consultants. A total of 35 minutes of critical care time was spent reviewing the patient record, examining the patient, making a diagnostic and therapeutic plan, discussing this plan with the medical personnel, following up on diagnostic studies and following the patient for clinical stability excluding any and all procedures. At least 50% of this time was spent in direct, [id number] contact. Thank you Irma Velasquez NP, for allowing me to participate in this patient's care. Further recommendations will depend on the patient's clinical course. Please do not hesitate to contact me if you have any questions or concerns. This medical document was created using an electronic medical record system with [employer] computerized dictation system. Although these documentations are being carefully reviewed, there may still be some phonetic and typographical changes. The errors are purely typographical, due to imperfection on the software program, and do not reflect any compromise in the patient's medical care. Plan discussed with: Other (SAIGE Magana) Critical Care Time(min): 35 VERÓNICA MERCER MD Jan 22, 2024 22:00
[2024-01-23] VITALS (99 sets, daily range): BP systolic 91–132; BP diastolic 41–76; PULSE 48–125; RESP 15–37; TEMP 98.8–100.2; O2SAT 3–97
[2024-01-23] MEDS: DOCUSATE SOD 100 MG CAP PO PRN (00:48)
[2024-01-23 03:28] LABS: Base Excess 2.1 mmol/L (-2.0-3.0)
--- NOTE | 2024-01-23 04:03 | DVH ---
CHEST RADIOGRAPH Indication: Desaturation Technique: Single frontal view of the chest was obtained Comparison: XY CHEST PORTABLE on DOS: 01/21/24, XY CHEST XRAY 1 VIEW on DOS: 01/20/24, XY CHEST HERMAN BLE on DOS: 01/19/24, XY CHEST XRAY 1 VIEW on DOS: 01/19/24, XY CHEST PORTABLE on DOS: 01/19/24, XY CHES T PORTABLE on DOS: 01/21/24 FINDINGS: Lines and Tubes: Endotracheal tube projects 5 cm above level of the zbigniew. Enteric tube tip projects over the expected region of the stomach. Left internal jugular central venous catheter tip projects over the brachiocephalic vein. Lungs: Low lung volumes. Pleura: No effusion. No pneumothorax. Cardiomediastinal contours: Unremarkable Bones: No acute osseous abnormality. IMPRESSION: stable pulmonary edema compared to prior exam.
[2024-01-23 04:15] LABS: Basophils # (auto) 0 10 ^3/uL (0-0.2); Eosinophils # (auto) 0 10 ^3/uL (0-0.8); Hemoglobin 12.4 g/dL (13.5-17.5); Lymphocytes # (auto) 0.4 10 ^3/uL (0.4-5.4); Lymphocytes % (auto) 3.5 % (10.0-50.0); Monocytes # (auto) 0.5 10 ^3/uL (0-1.3)
[2024-01-23 04:17] LABS: Basophils % (auto) 0.1 % (0.0-2.0); Hematocrit 41.4 % (41.0-53.0); Mean Corpuscular Hemoglobin 21.9 pg (28.0-32.0); Mean Corpuscular Hgb Conc. 29.9 g/dL (32.0-36.0); Mean Corpuscular Volume 73.5 fL (80.0-100.0); Monocytes % (auto) 4.4 % (0.0-12.0); Neutrophils # (auto) 11.2 10 ^3/uL (1.6-8.6); Nucleated Red Blood Cells % 0.2 %; Platelet Count (auto) 271 10^3/uL (140-450); Red Blood Cells 5.64 10^6/uL (4.5-5.90); Red Cell Distribution Width 19.1 % (11.8-14.3); White Blood Cell 12.2 10^3/uL (4.4-10.8)
[2024-01-23 04:29] LABS: Alanine Aminotransferase 40 U/L (7-40); Albumin 3.9 g/dL (3.2-4.8); Alkaline Phosphatase 60 U/L (46-116); Anion Gap 9 (5-15); Aspartate Aminotransferase 33 U/L (13-40); BUN/Creatinine Ratio 26.3 (10.0-20.0); Blood Urea Nitrogen 20 mg/dL (9-23); Calcium 9.3 mg/dL (8.7-10.4); Carbon Dioxide 31 mmol/L (20-31); Chloride 102 mmol/L (98-107); Sodium 142 mmol/L (136-145)
[2024-01-23 04:30] LABS: Bilirubin, Total 0.7 mg/dL (0.2-1.0); Total Protein 6.4 g/dL (5.7-8.2)
[2024-01-23 04:32] LABS: Glucose 161 mg/dL (74-106)
--- NOTE | 2024-01-23 06:14 | DVHPN2 ---
Progress Note - Dictate Date Seen: Jan 23, 2024 Medical Necessity Reason Pt with a Central, PICC or Fol: Yes The following are medically ne: Reyes Catheter Reason for reyes catheter: Strict I&O vital signs Vital Sign Date Time Temp Pulse Resp B/P (MAP) Pulse Ox O2 Delivery O2 Flow Rate FiO2 01/23/24 06:04 114/61 01/23/24 06:02 99.7 58 28 94 211.5 01/23/24 06:00 100 01/23/24 06:00 Mechanical Ventilator+ Total Intake and Output 01/22/24 01/22/24 01/23/24 15:00 23:00 07:00 Intake Total 458.1 ml 599.1 ml 1278.5 ml Output Total 1850 ml 1800 ml Balance 458.1 ml -1250.9 ml -521.5 ml medications Current Medications Medications Dose Ordered Sig/Reji Route Start Time Stop Time Status Last Admin Dose Admin Ondansetron HCl 4 mg Q4HP PRN IV 01/19/24 20:15 Docusate Sodium 100 mg BIDPRN PRN PO 01/19/24 20:15 01/23/24 00:48 100 MG Albuterol 2.5 mg Q4HP PRN NEB 01/19/24 20:15 01/23/24 03:36 2.5 MG Methylprednisolone Sodium Succinate 40 mg Q6HR IV 01/20/24 00:00 01/23/24 05:10 40 MG Pantoprazole Sodium 40 mg DAILY IV 01/20/24 10:00 01/22/24 10:16 40 MG Nitroglycerin 0.4 mg Q5MINP PRN SL 01/19/24 20:15 Morphine Sulfate 2 mg Q30M PRN IV 01/19/24 20:15 Midazolam HCl 50 ml @ 1 mls/hr Q24H IV 01/19/24 21:30 01/23/24 05:09 13 MLS/HR Propofol 100 ml @ 0 mls/hr Q0M IV 01/19/24 21:45 01/23/24 05:11 16.2 MLS/HR Fentanyl Citrate 250 ml @ 5 mls/hr Q24H IV 01/19/24 21:45 01/23/24 06:04 27.5 MLS/HR Aspirin 81 mg DAILY NG 01/20/24 10:00 01/22/24 10:17 81 MG Atorvastatin Calcium 40 mg HS PO 01/20/24 22:00 01/22/24 21:36 40 MG Enoxaparin Sodium 150 mg Q12HR SC 01/20/24 10:00 01/22/24 21:36 150 MG Latanoprost 1 drop QPM EACHEYE 01/20/24 18:00 01/22/24 17:08 1 DROP Patient Own Medication 400 mg MONTHLY IM 01/20/24 11:30 Lisinopril 20 mg DAILY PO 01/20/24 11:30 01/22/24 11:16 20 MG Nitroglycerin 250 ml @ 1.5 mls/hr Q24H IV 01/20/24 20:30 Albuterol 2.5 mg Q4HR NEB 01/20/24 22:00 01/23/24 01:53 2.5 MG Ipratropium [place] 0.5 mg Q4HR NEB 01/20/24 22:00 01/23/24 01:53 0.5 MG Doxycycline Hyclate 250 ml @ 125 mls/hr Q12H IV 01/21/24 14:30 01/23/24 04:06 125 MLS/HR Furosemide 40 mg BIDD IV 01/22/24 18:00 01/23/24 05:10 40 MG Enteral Nutritional Formula 1,000 ml 60ML/HR GT 01/22/24 14:00 01/22/24 14:54 1,000 ML Purified Water 100 ml Q6HR GT 01/22/24 18:00 01/23/24 05:12 100 ML laboratory and microbiology Laboratory Tests 01/23/24 03:25 Test 01/23/24 03:25 Range/Units Serum Glucose 161 H 74-106 mg/dL Assessment/Plan Patient is 28 year old morbidly obese male who presented to ED with shortness of breath. He has been intubated for respiratory failure and in on vent. support. Information was obtained by reviewing the chart and communicating with staff. Cardiology is involved for cardiac aspects of care. There is no report of chest pain prior to presentation. Reportedly, patient has been intubated for correction previously for Asthma in other institution. Intubated and on vent support. Morbidly obese. Does have right sided subclavian access. No JVD. Mucosa is pink and wet. No goiter. Scattered rhonchi is heard. Cardiac: RR, no thrill, no gallop. Abdomen is soft, obese and distended. BS is +. Ext reveal 2+ edema bilaterally. DP is 2+ bilateral PMH reportedly includes Morbid obesity, Asthma (with previous intubations), Autism, Schizophrenia and ANNETTE. Smokes Marijuana and drinks alcohol WBC: 11.6 to 11.2 to 14.2 to 12.2 D-dimer: 0.43 (wnl) Creat: 0.73 - 0.70 - 0.67 - 0.76 K: 4.1 - 4.3 - 4.1 - 4.2 - 4.0 BNP: 561.97 Trop (high sensitive): 61 - 62 - 131 - 132 - 91 - 82 TSH: 0.48 Urine toxicology was positive for Cannabinoids and Benzodiazpin Chest xry revealed: FINDINGS: Lines and Tubes: None Lungs: Obscuration of the left hemidiaphragm Diffuse interstitial prominence. No pneumothorax. Cardiomediastinal contours: Moderate cardiomegaly Bones: No acute osseous abnormality. IMPRESSION: Moderate cardiomegaly with findings suggestive of congestive heart failure. Possible left-sided pleural effusion. Repeat chest xry revealed: Endotracheal tube projects terminating 1.8 cm superior to the zbigniew. Enteric tube is projecting below the GE junction without visualization of the port or tip. Low lung volumes with bronchovascular crowding. Possible small left-sided pleural effusion and/or atelectasis. No pneumothorax. Repeat chest xry revealed: Cardiomediastinal silhouette is enlarged. There is increased pulmonary vascular congestion, similar prior examination. Obscuration of the left hemidiaphragm may be on the basis of technique versus small pleural effusion. No discrete pneumothorax. Endotracheal tube and enteric tube are redemonstrated. Left IJ catheter tip is likely at the region of the brachiocephalic vein. Repeat chest xry revealed: FINDINGS: Cardiomediastinal silhouette is enlarged. There is increased pulmonary vascular congestion, similar prior examination. Obscuration of the left hemidiaphragm may be on the basis of technique versus small pleural effusion. No discrete pneumothorax. Endotracheal tube and enteric tube are redemonstrated. Left IJ catheter tip is likely at the region of the brachiocephalic vein. IMPRESSION: NO INTERVAL CHANGE. Repeat chest xry revealed: IMPRESSION: Improving pulmonary edema compared to prior exam. Repeat chest xry revealed: IMPRESSION: stable pulmonary edema compared to prior exam. Venous duplex of lower ext revealed: Impression: 1. No right or left femoropopliteal venous thrombosis. 2. Left common femoral vein and proximal superficial femoral vein are not visible and therefore thrombus can not be excluded in those areas. EKG revealed: Sinus tachycardia with non-specific STT changes Tele reveals Sinus rhythm Echocardiogram revealed: Technically limited study secondary to poor acoustic windows. Left ventricle: Left ventricle was normal-sized with normal systolic function. LVEF was 60-65%. There was no gross wall motion abnormality observed. Right ventricle was not well visualized but it was dilated. Left atrium was normal-sized. Right atrium was not well visualized. Aortic valve was trileaflet and normal. There was no aortic insufficiency/stenosis. There was trivial mitral and tricuspid regurgitation. There was mild pulmonary valve insufficiency. As there was no good tricuspid regurgitation jet, right ventricular systolic pressure could not be estimated. There was no pericardial effusion. Patient is 28 year old male with history of morbid obesity who presented with respiratory failure. Does have history of Asthma and reportedly has been intubated for it before. Trop has been mildly elevated. ACS is less likely and increase in troponin most likely represents demand physiology. Still, component of type 1 physiology cannot be completely ruled out. Echo revealed dilated RV. As there was no good TR jet, RVSP could not be estimated. Pulmonary Hypertension cannot be ruled out. Pulmonary on board. Acute respiratory failure Asthma Asthma exacerbation Morbid obesity Abnormal trop Questionable heart failure, acute Cardiac suggestion for management: Manage in ICU IV diuresis Follow up electrolytes and kidney function test and correct abnormalities. Keep potassium above 4 and magnesium above 2 Lovenox for now ASA for now Follow up vital signs and correct hyper/hypotension. If needed add pressure support to keep MAP above 65 mmHg Pulmonary follow up Further evaluation and management depends on the above and clinical course A total of 75 minutes was spent reviewing the patient record, examining the patient, making a diagnostic and therapeutic plan, discussing this plan with medical personnel, following up on diagnostic studies and following the patient for clinical stability excluding any and all procedures. At least 50% of this time was spent in direct, [id number] contact. Thank you for allowing me to participate in this patient's care. Further recommendations will depend on patient's clinical course. Please do not hesitate to contact me if you have any questions or concerns. This medical document was created using electronic medical record system with [employer] computerized dictation system. Although this document has been carefully reviewed, there may still be some phonetic and typographical errors. These areas are purely typographical due to the imperfection of the software programs, and do not reflect any compromise in the patient's medical care. Plan discussed with: Other (nurse) PARRIS MCKINNON MD Jan 23, 2024 06:14
[2024-01-23 07:23] LABS: Base Excess 4.5 mmol/L (-2.0-3.0)
--- NOTE | 2024-01-23 16:25 | DVHPN2 ---
Progress Note - Dictate Date Seen: Jan 23, 2024 Medical Necessity Reason Pt with a Central, PICC or Fol: Yes The following are medically ne: Reyes Catheter Reason for reyes catheter: Strict I&O Subjective Patient seen and examined at bedside. Sedated, intubated on mechanical ventilator. Overnight events reviewed. vital signs Vital Sign Date Time Temp Pulse Resp B/P (MAP) Pulse Ox O2 Delivery O2 Flow Rate FiO2 01/23/24 16:00 70 28 116/66 (83) 90 100 01/23/24 13:33 99.0 210.2 01/23/24 13:33 Mechanical Ventilator+ Total Intake and Output 01/22/24 01/22/24 01/23/24 15:00 23:00 07:00 Intake Total 458.1 ml 599.1 ml 1695.7 ml Output Total 1850 ml 1800 ml Balance 458.1 ml -1250.9 ml -104.3 ml medications Current Medications Medications Dose Ordered Sig/Reji Route Start Time Stop Time Status Last Admin Dose Admin Ondansetron HCl 4 mg Q4HP PRN IV 01/19/24 20:15 Docusate Sodium 100 mg BIDPRN PRN PO 01/19/24 20:15 01/23/24 00:48 100 MG Albuterol 2.5 mg Q4HP PRN NEB 01/19/24 20:15 01/23/24 12:14 2.5 MG Methylprednisolone Sodium Succinate 40 mg Q6HR IV 01/20/24 00:00 01/23/24 12:11 40 MG Pantoprazole Sodium 40 mg DAILY IV 01/20/24 10:00 01/23/24 08:36 40 MG Nitroglycerin 0.4 mg Q5MINP PRN SL 01/19/24 20:15 Morphine Sulfate 2 mg Q30M PRN IV 01/19/24 20:15 Midazolam HCl 50 ml @ 1 mls/hr Q24H IV 01/19/24 21:30 01/23/24 15:25 15 MLS/HR Propofol 100 ml @ 0 mls/hr Q0M IV 01/19/24 21:45 01/23/24 12:56 10.8 MLS/HR Fentanyl Citrate 250 ml @ 5 mls/hr Q24H IV 01/19/24 21:45 01/23/24 14:38 30 MLS/HR Aspirin 81 mg DAILY NG 01/20/24 10:00 01/22/24 10:17 81 MG Atorvastatin Calcium 40 mg HS PO 01/20/24 22:00 01/22/24 21:36 40 MG Enoxaparin Sodium 150 mg Q12HR SC 01/20/24 10:00 01/22/24 21:36 150 MG Latanoprost 1 drop QPM EACHEYE 01/20/24 18:00 01/22/24 17:08 1 DROP Patient Own Medication 400 mg MONTHLY IM 01/20/24 11:30 Lisinopril 20 mg DAILY PO 01/20/24 11:30 01/23/24 08:36 20 MG Nitroglycerin 250 ml @ 1.5 mls/hr Q24H IV 01/20/24 20:30 Albuterol 2.5 mg Q4HR NEB 01/20/24 22:00 01/23/24 14:24 2.5 MG Ipratropium [place] 0.5 mg Q4HR NEB 01/20/24 22:00 01/23/24 14:24 0.5 MG Doxycycline Hyclate 250 ml @ 125 mls/hr Q12H IV 01/21/24 14:30 01/23/24 14:40 125 MLS/HR Furosemide 40 mg BIDD IV 01/22/24 18:00 01/23/24 05:10 40 MG Enteral Nutritional Formula 1,000 ml 60ML/HR GT 01/22/24 14:00 01/22/24 14:54 1,000 ML Purified Water 100 ml Q6HR GT 01/22/24 18:00 01/23/24 12:18 100 ML objective Gen.: Patient lying in bed in medical ICU. Sedated, intubated on mechanical ventilator. Head: Normocephalic, atraumatic. Eyes: PERRLA. Ears: Normal external anatomy. Throat: Endotracheal tube and orogastric tube in place. Neck: Supple, trachea midline. Chest: Transmitted breath sounds bilaterally. Decreased air entry bilaterally. No wheezing. Bibasilar crackles. Cardiovascular: Positive S1, positive S2. Regular rate and rhythm. Abdomen: Positive bowel sounds in all 4 quadrants. Soft, nontender, nondistended. : Reyes in place. Normal external genitalia. Rectal: Deferred. Skin: Warm, dry. Intact. Extremities: 2+ radial pulses bilaterally. No lower extremity edema. Neuro: Sedated. laboratory and microbiology Laboratory Tests 01/23/24 03:25 Test 01/23/24 03:25 Range/Units Serum Glucose 161 H 74-106 mg/dL Assessment/Plan Impression: Acute hypoxic respiratory failure On mechanical ventilator Acute exacerbation of asthma Elevated Troponin Schizophrenia Autism Cannabinoid Use Morbid obesity BMI 60.5 Pulmonary edema Events: Remains on vent support On AC mode with RR 28, VT 500, PEEP 12, FiO2 90% Sedated on Propofol, Fentanyl, Versed. ABG reviewed, compensated. CXR notable for stable pulmonary edema, low lung volumes. Continue bronchodilators IV steroids Continue antibiotics Follow up cultures. Bradycardia - follow up Cardiology recs Tube feeds for nutritional support Diurese w/ Lasix 40 mg IV BID Monitor renal function Monitor electrolytes. Supplement as necessary. Monitor ins and outs. Labs and imaging reviewed. Rest of plan as noted below. Plan: s/p intubation on mechanical ventilator. On AC mode with RR 28, VT 500, PEEP 12, FiO2 90% Titrate FIO2 to keep O2 saturation above 90%. VAP bundle. Daily ABG and CXR while intubated Sedate for ventilator synchrony Pt does not tolerate turns. Derecruitment. Turn carefully. Elevated Troponin - Cardiology recs appreciated. Continue bronchodilators Antibiotics. F/u cultures. Start pressors if necessary to maintain a mean arterial blood pressure greater than 65 mmHg. Monitor renal function Monitor electrolytes. Supplement as necessary. Monitor ins and outs. Diet and lifestyle modifications for weight reduction Morbid obesity - complicates all care GI prophylaxis. DVT prophylaxis. Prognosis: Poor given patient's multiple co-morbidities. Condition: Critical Rest of plan per hospitalist and other consultants. A total of 35 minutes of critical care time was spent reviewing the patient record, examining the patient, making a diagnostic and therapeutic plan, discussing this plan with the medical personnel, following up on diagnostic studies and following the patient for clinical stability excluding any and all procedures. At least 50% of this time was spent in direct, [id number] contact. Thank you Irma Velasquez NP, for allowing me to participate in this patient's care. Further recommendations will depend on the patient's clinical course. Please do not hesitate to contact me if you have any questions or concerns. This medical document was created using an electronic medical record system with [employer] system. Although these documentations are being carefully reviewed, there may still be some phonetic and typographical changes. The errors are purely typographical, due to imperfection on the software program, and do not reflect any compromise in the patient's medical care. Dietary Evaluation Review Comments: Current Jevity 1.2 @60ml/hr TF is meeting pt's need for protein at 60% for energy at 117% Continue monitor nutrition progress of nutrition support to meet 75% of his needs. Advance to a cardiac diet, texture as tolerated when medically feasible. Expected Outcomes/Goals: gradual weight loss Plan discussed with: Other (SAIGE Magana) Critical Care Time(min): 35 VERÓNICA MERCER MD Jan 23, 2024 16:25
--- NOTE | 2024-01-23 17:09 | DVHPN2 ---
Progress Note - Dictate Date Seen: Jan 23, 2024 Medical Necessity Reason Pt with a Central, PICC or Fol: Yes The following are medically ne: Reyes Catheter Reason for reyes catheter: Strict I&O vital signs Vital Sign Date Time Temp Pulse Resp B/P (MAP) Pulse Ox O2 Delivery O2 Flow Rate FiO2 01/23/24 16:33 99.1 56 28 119/64 (82) 93 210.4 01/23/24 16:00 100 01/23/24 16:00 Mechanical Ventilator+ Total Intake and Output 01/22/24 01/22/24 01/23/24 15:00 23:00 07:00 Intake Total 458.1 ml 599.1 ml 1695.7 ml Output Total 1850 ml 1800 ml Balance 458.1 ml -1250.9 ml -104.3 ml medications Current Medications Medications Dose Ordered Sig/Reji Route Start Time Stop Time Status Last Admin Dose Admin Ondansetron HCl 4 mg Q4HP PRN IV 01/19/24 20:15 Docusate Sodium 100 mg BIDPRN PRN PO 01/19/24 20:15 01/23/24 00:48 100 MG Albuterol 2.5 mg Q4HP PRN NEB 01/19/24 20:15 01/23/24 12:14 2.5 MG Methylprednisolone Sodium Succinate 40 mg Q6HR IV 01/20/24 00:00 01/23/24 12:11 40 MG Pantoprazole Sodium 40 mg DAILY IV 01/20/24 10:00 01/23/24 08:36 40 MG Nitroglycerin 0.4 mg Q5MINP PRN SL 01/19/24 20:15 Morphine Sulfate 2 mg Q30M PRN IV 01/19/24 20:15 Midazolam HCl 50 ml @ 1 mls/hr Q24H IV 01/19/24 21:30 01/23/24 15:25 15 MLS/HR Propofol 100 ml @ 0 mls/hr Q0M IV 01/19/24 21:45 01/23/24 12:56 10.8 MLS/HR Fentanyl Citrate 250 ml @ 5 mls/hr Q24H IV 01/19/24 21:45 01/23/24 14:38 30 MLS/HR Aspirin 81 mg DAILY NG 01/20/24 10:00 01/22/24 10:17 81 MG Atorvastatin Calcium 40 mg HS PO 01/20/24 22:00 01/22/24 21:36 40 MG Enoxaparin Sodium 150 mg Q12HR SC 01/20/24 10:00 01/22/24 21:36 150 MG Latanoprost 1 drop QPM EACHEYE 01/20/24 18:00 01/22/24 17:08 1 DROP Patient Own Medication 400 mg MONTHLY IM 01/20/24 11:30 Lisinopril 20 mg DAILY PO 01/20/24 11:30 01/23/24 08:36 20 MG Nitroglycerin 250 ml @ 1.5 mls/hr Q24H IV 01/20/24 20:30 Albuterol 2.5 mg Q4HR NEB 01/20/24 22:00 01/23/24 14:24 2.5 MG Ipratropium [place] 0.5 mg Q4HR NEB 01/20/24 22:00 01/23/24 14:24 0.5 MG Doxycycline Hyclate 250 ml @ 125 mls/hr Q12H IV 01/21/24 14:30 01/23/24 14:40 125 MLS/HR Furosemide 40 mg BIDD IV 01/22/24 18:00 01/23/24 05:10 40 MG Enteral Nutritional Formula 1,000 ml 60ML/HR GT 01/22/24 14:00 01/22/24 14:54 1,000 ML Purified Water 100 ml Q6HR GT 01/22/24 18:00 01/23/24 12:18 100 ML objective General Appearance: alert, no distress HEENT: EOMI, PERRLA, normal external inspect of ears, no icterus, no nasal drainage Neck: no carotid bruit, no jugular venous distention (JVD), no lymphadenopathy Chest: normal thorax Respiratory: clear to auscultation Cardiovascular: regular rate and rhythm, no diastolic murmur, no jugular venous distention (JVD), no rub, no systolic murmur Abdominal: soft, no hepatomegaly, no mass, no splenomegaly, no tenderness Genitourinary: grossly normal external Musculoskeletal: no joint tenderness, no swelling Extremities: normal pulses, no calf tenderness, no clubbing, no cyanosis, no edema Skin: no bruising, no jaundice, no rash Neurological: alert, No focal deficit laboratory and microbiology Laboratory Tests 01/23/24 03:25 Test 01/23/24 03:25 Range/Units Serum Glucose 161 H 74-106 mg/dL Problem List 1. Asthma with acute exacerbation Pulmonary consult, monitoring 2. Acute hypoxic respiratory failure requiring intubation Pulmonary Consult 3. Schizophrenia Monitoring 4. Autism Medication, monitoring 5. Elevated Troponin Cardiology Consult, monitoring 6. Cannabis Use Education Assessment/Plan Subjective Patient remains on the ventilator. 100% FiO2. Objective Patient was admitted for asthma exacerbation. He was emergently intubated in the emergency room. Patient had a prior experience of intubation 6 years ago. Patient can follow commands. He is currently on sedation with fentanyl propofol and Versed. Patient has sinus bradycardia in the 40s and 50s. Lovenox has been on hold due to traumatic NG tube insertion and patient having some blood noted with suctioning. He is currently tolerating tube feedings at 35 mL an hour. Plan Continue current treatment. Ventilator management per pulmonary. Continue IV Solu-Medrol. Dietary Evaluation Review Comments: Current Jevity 1.2 @60ml/hr TF is meeting pt's need for protein at 60% for energy at 117% Continue monitor nutrition progress of nutrition support to meet 75% of his needs. Advance to a cardiac diet, texture as tolerated when medically feasible. Expected Outcomes/Goals: gradual weight loss Plan discussed with: Patient, Other VIK COBOS NP Jan 23, 2024 17:09
[2024-01-23] MEDS ORDERED: VANCOMYCIN PER PHARMACY 0 MG IV SCH (20:45)
[2024-01-23] MEDS: VANCOMYCIN 1GM/250mL NS or D5W KIT IV SCH (21:40)
[2024-01-24] VITALS (115 sets, daily range): BP systolic 96–143; BP diastolic 46–130; PULSE 42–130; RESP 19–31; TEMP 97.9–99.9; O2SAT 3–97
[2024-01-24 04:11] LABS: Basophils # (auto) 0 10 ^3/uL (0-0.2); Eosinophils # (auto) 0 10 ^3/uL (0-0.8); Hemoglobin 12.4 g/dL (13.5-17.5); Lymphocytes # (auto) 0.4 10 ^3/uL (0.4-5.4); Mean Corpuscular Hemoglobin 22.2 pg (28.0-32.0)
[2024-01-24 04:13] LABS: Hematocrit 40.8 % (41.0-53.0); Lymphocytes % (auto) 3.1 % (10.0-50.0); Mean Corpuscular Hgb Conc. 30.3 g/dL (32.0-36.0); Monocytes # (auto) 0.6 10 ^3/uL (0-1.3); Monocytes % (auto) 4.8 % (0.0-12.0); Neutrophils # (auto) 12.3 10 ^3/uL (1.6-8.6); Neutrophils % (auto) 92.1 % (37.0-80.0); Platelet Count (auto) 247 10^3/uL (140-450); Red Blood Cells 5.58 10^6/uL (4.5-5.90); White Blood Cell 13.3 10^3/uL (4.4-10.8)
[2024-01-24 04:27] LABS: Alanine Aminotransferase 39 U/L (7-40); Albumin 3.7 g/dL (3.2-4.8); Alkaline Phosphatase 56 U/L (46-116); Anion Gap 7 (5-15); Aspartate Aminotransferase 21 U/L (13-40); BUN/Creatinine Ratio 32.4 (10.0-20.0); Bilirubin, Total 0.7 mg/dL (0.2-1.0); Calcium 9.3 mg/dL (8.7-10.4); Chloride 103 mmol/L (98-107); Magnesium 2.4 mg/dL (1.6-2.6); Potassium 4.1 mmol/L (3.5-5.1); Sodium 142 mmol/L (136-145); Total Protein 6.3 g/dL (5.7-8.2)
[2024-01-24 04:28] LABS: Blood Urea Nitrogen 23 mg/dL (9-23); Carbon Dioxide 32 mmol/L (20-31); Glucose 135 mg/dL (74-106)
--- NOTE | 2024-01-24 05:54 | DVH ---
CHEST RADIOGRAPH Indication: Intubated. Technique: Single frontal view of the chest was obtained COMPARISON: XY CHEST PORTABLE on DOS: 01/23/24, XY CHEST PORTABLE on DOS: 01/21/24, XY CHEST XRAY 1 V IEW on DOS: 01/20/24 FINDINGS: Lines and Tubes: Endotracheal tube and enteric catheter in satisfactory position. Lungs: Multi focal airspace disease. Pleura: No effusion. No pneumothorax. Cardiomediastinal contours: Unremarkable Bones: Unremarkable IMPRESSION: Lines and tubes in satisfactory position. No significant interval change.
[2024-01-24 06:55] LABS: Base Excess 4.4 mmol/L (-2.0-3.0)
--- NOTE | 2024-01-24 09:41 | MEDREC ---
[facility] ASP Intervention Section I [facility] ASP Intervention: Review courses of therapy (PRELIMINARY BLOOD CULTURE SHOWS STAPHYLOCOCCUS SPECIES, PATIENT IS ON VANCOMYCIN TREATMENT. THE FINAL RESPIRATORY CULTURE SHOWED NORMAL JONO. DOXYCYCLINE IS INDICATED FOR COPD ACUTE EXACERBATION. PLEASE CONSIDER D/C DOXYCYCLINE IF PATIENT ONLY HAS ASTHMA E XACERBATION) MELINDA MARION Jan 24, 2024 09:41
[2024-01-24] MEDS: VANCOMYCIN 1GM/250ML KIT 250 ML IV SCH (12:01)
--- NOTE | 2024-01-24 13:56 | DVHPN2 ---
Progress Note - Dictate Date Seen: Jan 24, 2024 Medical Necessity Reason Pt with a Central, PICC or Fol: Yes The following are medically ne: Reyes Catheter Reason for reyes catheter: Strict I&O vital signs Vital Sign Date Time Temp Pulse Resp B/P (MAP) Pulse Ox O2 Delivery O2 Flow Rate FiO2 01/24/24 13:41 139/73 01/24/24 12:00 51 01/24/24 12:00 28 93 Mechanical Ventilator+ 100 100 01/24/24 11:49 99.5 211.1 Total Intake and Output 01/23/24 01/23/24 01/24/24 15:00 23:00 07:00 Intake Total 477.0 ml 1308.4 ml 1560.0 ml Output Total 1025 ml 1525 ml Balance 477.0 ml 283.4 ml 35.0 ml medications Current Medications Medications Dose Ordered Sig/Reji Route Start Time Stop Time Status Last Admin Dose Admin Ondansetron HCl 4 mg Q4HP PRN IV 01/19/24 20:15 Docusate Sodium 100 mg BIDPRN PRN PO 01/19/24 20:15 01/23/24 00:48 100 MG Methylprednisolone Sodium Succinate 40 mg Q6HR IV 01/20/24 00:00 01/24/24 12:01 40 MG Pantoprazole Sodium 40 mg DAILY IV 01/20/24 10:00 01/24/24 10:04 40 MG Nitroglycerin 0.4 mg Q5MINP PRN SL 01/19/24 20:15 Morphine Sulfate 2 mg Q30M PRN IV 01/19/24 20:15 Midazolam HCl 50 ml @ 1 mls/hr Q24H IV 01/19/24 21:30 01/24/24 13:01 14 MLS/HR Propofol 100 ml @ 0 mls/hr Q0M IV 01/19/24 21:45 01/24/24 07:54 21.6 MLS/HR Fentanyl Citrate 250 ml @ 5 mls/hr Q24H IV 01/19/24 21:45 01/24/24 13:41 35 MLS/HR Aspirin 81 mg DAILY NG 01/20/24 10:00 01/22/24 10:17 81 MG Atorvastatin Calcium 40 mg HS PO 01/20/24 22:00 01/23/24 21:40 40 MG Enoxaparin Sodium 150 mg Q12HR SC 01/20/24 10:00 01/22/24 21:36 150 MG Latanoprost 1 drop QPM EACHEYE 01/20/24 18:00 01/23/24 17:39 1 DROP Patient Own Medication 400 mg MONTHLY IM 01/20/24 11:30 Lisinopril 20 mg DAILY PO 01/20/24 11:30 01/24/24 10:05 20 MG Nitroglycerin 250 ml @ 1.5 mls/hr Q24H IV 01/20/24 20:30 Albuterol 2.5 mg Q4HR NEB 01/20/24 22:00 01/24/24 09:53 2.5 MG Ipratropium [place] 0.5 mg Q4HR NEB 01/20/24 22:00 01/24/24 09:53 0.5 MG Doxycycline Hyclate 250 ml @ 125 mls/hr Q12H IV 01/21/24 14:30 01/24/24 02:38 125 MLS/HR Furosemide 40 mg BIDD IV 01/22/24 18:00 01/24/24 05:28 40 MG Enteral Nutritional Formula 1,000 ml 60ML/HR GT 01/22/24 14:00 01/24/24 05:35 1,000 ML Purified Water 100 ml Q6HR GT 01/22/24 18:00 01/24/24 12:15 100 ML Vancomycin HCl 0 ml @ 0 mls/hr UD IV 01/23/24 20:45 Vancomycin HCl 250 ml @ 250 mls/hr Q8H IV 01/24/24 12:00 01/24/24 12:01 250 MLS/HR objective General Appearance: alert, no distress HEENT: EOMI, PERRLA, normal external inspect of ears, no icterus, no nasal drainage Neck: no carotid bruit, no jugular venous distention (JVD), no lymphadenopathy Chest: normal thorax Respiratory: clear to auscultation Cardiovascular: regular rate and rhythm, no diastolic murmur, no jugular venous distention (JVD), no rub, no systolic murmur Abdominal: soft, no hepatomegaly, no mass, no splenomegaly, no tenderness Genitourinary: grossly normal external Musculoskeletal: no joint tenderness, no swelling Extremities: normal pulses, no calf tenderness, no clubbing, no cyanosis, no edema Skin: no bruising, no jaundice, no rash Neurological: alert, No focal deficit laboratory and microbiology Laboratory Tests 01/24/24 03:08 Test 01/24/24 03:08 Range/Units Serum Glucose 135 H 74-106 mg/dL Problem List 1. Asthma with acute exacerbation Pulmonary consult, monitoring 2. Acute hypoxic respiratory failure requiring intubation Pulmonary Consult 3. Schizophrenia Monitoring 4. Autism Medication, monitoring 5. Elevated Troponin Cardiology Consult, monitoring 6. Cannabis Use Education Assessment/Plan Subjective Patient is awake and alert on sedation. Objective Patient is currently on the ventilator at 100% FiO2. Patient was emergently intubated in the emergency room on 01/19/2024 for acute asthma exacerbation. I did update patient's mother and sister at bedside. Patient did have several episodes of desaturations. He had to be manually bagged by respiratory therapist. Plan Continue current treatment. Pulmonary recommendations appreciated. Monitor daily labs. Dietary Evaluation Review Comments: Current Jevity 1.2 @60ml/hr TF is meeting pt's need for protein at 60% for energy at 117% Continue monitor nutrition progress of nutrition support to meet 75% of his needs. Advance to a cardiac diet, texture as tolerated when medically feasible. Expected Outcomes/Goals: gradual weight loss Plan discussed with: Patient, Other VIK [employer]INTE[employer]CE DIRECTOR Jan 24, 2024 13:56
[2024-01-24] MEDS: methylPREDNISolone SOD SUCC 125 MG/2 ML VL IV SCH (16:27)
--- NOTE | 2024-01-24 16:36 | DVHPN2 ---
Progress Note - Dictate Date Seen: Jan 24, 2024 Medical Necessity Reason Pt with a Central, PICC or Fol: Yes The following are medically ne: Reyes Catheter Reason for reyes catheter: Strict I&O vital signs Vital Sign Date Time Temp Pulse Resp B/P (MAP) Pulse Ox O2 Delivery O2 Flow Rate FiO2 01/24/24 16:10 62 28 141/130 (134) 92 100 01/24/24 16:01 99.7 211.5 01/24/24 16:00 Mechanical Ventilator+ Total Intake and Output 01/23/24 01/23/24 01/24/24 15:00 23:00 07:00 Intake Total 477.0 ml 1308.4 ml 1560.0 ml Output Total 1025 ml 1525 ml Balance 477.0 ml 283.4 ml 35.0 ml medications Current Medications Medications Dose Ordered Sig/Reji Route Start Time Stop Time Status Last Admin Dose Admin Ondansetron HCl 4 mg Q4HP PRN IV 01/19/24 20:15 Docusate Sodium 100 mg BIDPRN PRN PO 01/19/24 20:15 01/23/24 00:48 100 MG Pantoprazole Sodium 40 mg DAILY IV 01/20/24 10:00 01/24/24 10:04 40 MG Nitroglycerin 0.4 mg Q5MINP PRN SL 01/19/24 20:15 Morphine Sulfate 2 mg Q30M PRN IV 01/19/24 20:15 Midazolam HCl 50 ml @ 1 mls/hr Q24H IV 01/19/24 21:30 01/24/24 13:01 14 MLS/HR Propofol 100 ml @ 0 mls/hr Q0M IV 01/19/24 21:45 01/24/24 07:54 21.6 MLS/HR Fentanyl Citrate 250 ml @ 5 mls/hr Q24H IV 01/19/24 21:45 01/24/24 13:41 35 MLS/HR Aspirin 81 mg DAILY NG 01/20/24 10:00 01/24/24 14:34 81 MG Atorvastatin Calcium 40 mg HS PO 01/20/24 22:00 01/23/24 21:40 40 MG Enoxaparin Sodium 150 mg Q12HR SC 01/20/24 10:00 01/24/24 14:34 150 MG Latanoprost 1 drop QPM EACHEYE 12/10/24 18:00 01/23/24 17:39 1 DROP Patient Own Medication 400 mg MONTHLY IM 01/20/24 11:30 Lisinopril 20 mg DAILY PO 01/20/24 11:30 01/24/24 10:05 20 MG Nitroglycerin 250 ml @ 1.5 mls/hr Q24H IV 01/20/24 20:30 Albuterol 2.5 mg Q4HR NEB 01/20/24 22:00 01/24/24 14:09 2.5 MG Ipratropium [place] 0.5 mg Q4HR NEB 01/20/24 22:00 01/24/24 14:09 0.5 MG Doxycycline Hyclate 250 ml @ 125 mls/hr Q12H IV 01/21/24 14:30 01/24/24 14:34 125 MLS/HR Furosemide 40 mg BIDD IV 01/22/24 18:00 01/24/24 05:28 40 MG Enteral Nutritional Formula 1,000 ml 60ML/HR GT 01/22/24 14:00 01/24/24 05:35 1,000 ML Purified Water 100 ml Q6HR GT 01/22/24 18:00 01/24/24 12:15 100 ML Vancomycin HCl 0 ml @ 0 mls/hr UD IV 01/23/24 20:45 Vancomycin HCl 250 ml @ 250 mls/hr Q8H IV 01/24/24 12:00 01/24/24 12:01 250 MLS/HR Methylprednisolone Sodium Succinate 60 mg Q4HR IV 01/24/24 16:00 01/24/24 16:27 60 MG laboratory and microbiology Laboratory Tests 01/24/24 03:08 Test 01/24/24 03:08 Range/Units Serum Glucose 135 H 74-106 mg/dL Assessment/Plan Patient is 28 year old morbidly obese male who presented to ED with shortness of breath. He has been intubated for respiratory failure and in on vent. support. Information was obtained by reviewing the chart and communicating with staff. Cardiology is involved for cardiac aspects of care. There is no report of chest pain prior to presentation. Reportedly, patient has been intubated for correction previously for Asthma in other institution. Intubated and on vent support. Morbidly obese. Does have right sided subclavian access. No JVD. Mucosa is pink and wet. No goiter. Scattered rhonchi is heard. Cardiac: RR, no thrill, no gallop. Abdomen is soft, obese and distended. BS is +. Ext reveal 2+ edema bilaterally. DP is 2+ bilateral PMH reportedly includes Morbid obesity, Asthma (with previous intubations), Autism, Schizophrenia and ANNETTE. Smokes Marijuana and drinks alcohol WBC: 11.6 to 11.2 to 14.2 to 12.2 D-dimer: 0.43 (wnl) Creat: 0.73 - 0.70 - 0.67 - 0.76 K: 4.1 - 4.3 - 4.1 - 4.2 - 4.0 BNP: 561.97 Trop (high sensitive): 61 - 62 - 131 - 132 - 91 - 82 TSH: 0.48 Urine toxicology was positive for Cannabinoids and Benzodiazpin Chest xry revealed: FINDINGS: Lines and Tubes: None Lungs: Obscuration of the left hemidiaphragm Diffuse interstitial prominence. No pneumothorax. Cardiomediastinal contours: Moderate cardiomegaly Bones: No acute osseous abnormality. IMPRESSION: Moderate cardiomegaly with findings suggestive of congestive heart failure. Possible left-sided pleural effusion. Repeat chest xry revealed: Endotracheal tube projects terminating 1.8 cm superior to the zbigniew. Enteric tube is projecting below the GE junction without visualization of the port or tip. Low lung volumes with bronchovascular crowding. Possible small left-sided pleural effusion and/or atelectasis. No pneumothorax. Repeat chest xry revealed: Cardiomediastinal silhouette is enlarged. There is increased pulmonary vascular congestion, similar prior examination. Obscuration of the left hemidiaphragm may be on the basis of technique versus small pleural effusion. No discrete pneumothorax. Endotracheal tube and enteric tube are redemonstrated. Left IJ catheter tip is likely at the region of the brachiocephalic vein. Repeat chest xry revealed: FINDINGS: Cardiomediastinal silhouette is enlarged. There is increased pulmonary vascular congestion, similar prior examination. Obscuration of the left hemidiaphragm may be on the basis of technique versus small pleural effusion. No discrete pneumothorax. Endotracheal tube and enteric tube are redemonstrated. Left IJ catheter tip is likely at the region of the brachiocephalic vein. IMPRESSION: NO INTERVAL CHANGE. Repeat chest xry revealed: IMPRESSION: Improving pulmonary edema compared to prior exam. Repeat chest xry revealed: IMPRESSION: stable pulmonary edema compared to prior exam. Repeat holly xry revealed: IMPRESSION: Lines and tubes in satisfactory position. No significant interval change. Venous duplex of lower ext revealed: Impression: 1. No right or left femoropopliteal venous thrombosis. 2. Left common femoral vein and proximal superficial femoral vein are not visible and therefore thrombus can not be excluded in those areas. EKG revealed: Sinus tachycardia with non-specific STT changes Tele reveals Sinus rhythm Echocardiogram revealed: Technically limited study secondary to poor acoustic windows. Left ventricle: Left ventricle was normal-sized with normal systolic function. LVEF was 60-65%. There was no gross wall motion abnormality observed. Right ventricle was not well visualized but it was dilated. Left atrium was normal-sized. Right atrium was not well visualized. Aortic valve was trileaflet and normal. There was no aortic insufficiency/stenosis. There was trivial mitral and tricuspid regurgitation. There was mild pulmonary valve insufficiency. As there was no good tricuspid regurgitation jet, right ventricular systolic pressure could not be estimated. There was no pericardial effusion. Patient is 28 year old male with history of morbid obesity who presented with respiratory failure. Does have history of Asthma and reportedly has been intubated for it before. Trop has been mildly elevated. ACS is less likely and increase in troponin most likely represents demand physiology. Still, component of type 1 physiology cannot be completely ruled out. Echo revealed dilated RV. As there was no good TR jet, RVSP could not be estimated. Pulmonary Hypertension cannot be ruled out. Pulmonary on board. Acute respiratory failure Asthma Asthma exacerbation Morbid obesity Abnormal trop Questionable heart failure, acute Bradycardia ( suspected sedation induced ) Cardiac suggestion for management: Manage in ICU IV diuresis Follow up electrolytes and kidney function test and correct abnormalities. Keep potassium above 4 and magnesium above 2 Lovenox for now ASA for now Follow up vital signs and correct hyper/hypotension. If needed add pressure support to keep MAP above 65 mmHg Bradycardia noted with increase in propofol. Pt remains on max dosage for fentanyl and versed and continues with vent compliance issues. Per RN, pulmonology to start patient on paralytic to assist. - Recommend maintaining lowest does of propofol needed to effectively sedate patient with primary use of versed and fentanyl. Pulmonary follow up Further evaluation and management depends on the above and clinical course A total of 75 minutes was spent reviewing the patient record, examining the patient, making a diagnostic and therapeutic plan, discussing this plan with medical personnel, following up on diagnostic studies and following the patient for clinical stability excluding any and all procedures. At least 50% of this time was spent in direct, [id number] contact. Thank you for allowing me to participate in this patient's care. Further recommendations will depend on patient's clinical course. Please do not hesitate to contact me if you have any questions or concerns. This medical document was created using electronic medical record system with [employer] computerized dictation system. Although this document has been carefully reviewed, there may still be some phonetic and typographical errors. These areas are purely typographical due to the imperfection of the software programs, and do not reflect any compromise in the patient's medical care. Dietary Evaluation Review Comments: Current Jevity 1.2 @60ml/hr TF is meeting pt's need for protein at 60% for energy at 117% Continue monitor nutrition progress of nutrition support to meet 75% of his needs. Advance to a cardiac diet, texture as tolerated when medically feasible. Expected Outcomes/Goals: gradual weight loss Plan discussed with: Other (RN) Provider Statement: I have reviewed the case with my supervising physician. We have agreed with the plan of care. IVY TRAYLOR Jan 24, 2024 16:36
--- NOTE | 2024-01-24 17:56 | DVHDS ---
DATE OF DISCHARGE: 01/24/2024 PULMONARY FOLLOWUP Covering for Dr. Dow. PRIMARY PROVIDER: Irma Velasquez NP SUBJECTIVE: The patient remains in critical condition. The patient's sister and mother is at bedside. Also, discussed with bedside RN and RT. The patient remains on 100% FiO2 with 12 of PEEP, desaturates easily on any movement. No significant secretions. The patient is not requiring any hemodynamic support. The patient remains sedated with Versed and fentanyl at high doses and intermittently use of Diprivan. Urine output has been stable. Also, discussed with the patient's mother, he does have a history of asthma at baseline, uses albuterol and a steroid inhaler. Also, has been a smoker. PHYSICAL EXAMINATION: VITAL SIGNS: Stable. T max of 99.5, heart rate 51, respiratory rate 28 with a ventilator, blood pressure 140/80, saturation 93 on 100% FiO2. GENERAL: Severe morbid obesity. HEENT: Moderate oropharyngeal crowding. Tongue moist. Endotracheal tube, OG tube in place. CHEST: Examination reveals very diminished air entry at bases. Bibasilar rales. ABDOMEN: Soft, morbidly obese. No organomegaly. Bowel sounds were appreciated. EXTREMITIES: 1+ pedal edema. LABORATORY DATA: Lab work, WBC 13, hematocrit 41, platelet count 247, 92% neutrophils. Blood gases this morning, pH 7.44, pCO2 43, pO2 57, saturation of 88%. Serum chemistries were noted. CO2 32, glucose of 135. LFTs within normal limits. The patient's previous troponins have been high. Coagulation profile is unremarkable. Tox screen was positive for benzodiazepines on 01/19/2024. Influenza A, B and COVID rapid antigen tests were negative. Blood cultures have all been negative. I am told by the bedside RN that blood cultures today have been reported as having Gram-positive cocci in cluster and vancomycin has been added. The patient is already on doxycycline. The patient's chest x-ray was reviewed and shows multifocal airspace disease, no effusions, lines in place. The patient also had a Doppler of the legs done on 01/19/2024, which shows no right or left femoropopliteal venous thrombosis. ASSESSMENT: Acute respiratory failure, severe hypoxia, morbid obesity, history of possible acute exacerbation of asthma, elevated troponins, history of autism, schizophrenia, possible pulmonary edema. PLAN: Continue cardiac followup. The patient also remains on diuresis. I will increase the steroids. If the patient's oxygenation becomes worse, may need to change to pressure controlled ventilation. We will continue Protonix for GI prophylaxis. The patient is now on vancomycin and doxycycline. Continue Lovenox for DVT prophylaxis. Prognosis is guarded and critical. The patient's sister and mother were updated. Critical time was 37 minutes. Joe Emmanuel MD /PRM TID: [id number] RECEIPT: [id number]
[2024-01-24] MEDS: NOREPINEPHRINE 8 MG/250ML KIT 250 ML IV SCH (18:30)
[2024-01-24] MEDS: ROCURONIUM 10MG/ML 10ML VIAL IV ONE (18:56)
[2024-01-24] MEDS: ROCURONIUM BROMIDE 1,000 MG in D5W 5% 150 ML IV SCH (19:01)
[2024-01-25] VITALS (118 sets, daily range): BP systolic 107–147; BP diastolic 26–81; PULSE 43–110; RESP 24–29; TEMP 97.7–99.3; O2SAT 75–95
[2024-01-25 03:28] LABS: Eosinophils # (auto) 0 10 ^3/uL (0-0.8); Red Cell Distribution Width 18.5 % (11.8-14.3)
[2024-01-25 03:32] LABS: Basophils # (auto) 0.1 10 ^3/uL (0-0.2); Basophils % (auto) 0.5 % (0.0-2.0); Hematocrit 41.8 % (41.0-53.0); Hemoglobin 12.8 g/dL (13.5-17.5); Lymphocytes # (auto) 0.2 10 ^3/uL (0.4-5.4); Lymphocytes % (auto) 1.5 % (10.0-50.0); Mean Corpuscular Hemoglobin 22.3 pg (28.0-32.0); Mean Corpuscular Hgb Conc. 30.5 g/dL (32.0-36.0); Mean Corpuscular Volume 73.1 fL (80.0-100.0); Monocytes # (auto) 0.5 10 ^3/uL (0-1.3); Monocytes % (auto) 3.1 % (0.0-12.0); Neutrophils # (auto) 15.6 10 ^3/uL (1.6-8.6); Neutrophils % (auto) 94.9 % (37.0-80.0); Platelet Count (auto) 240 10^3/uL (140-450); Red Blood Cells 5.72 10^6/uL (4.5-5.90); White Blood Cell 16.4 10^3/uL (4.4-10.8)
[2024-01-25 03:43] LABS: Albumin 3.8 g/dL (3.2-4.8); Alkaline Phosphatase 55 U/L (46-116); Anion Gap 8 (5-15); Aspartate Aminotransferase 24 U/L (13-40); BUN/Creatinine Ratio 26.1 (10.0-20.0); Bilirubin, Total 0.6 mg/dL (0.2-1.0); Blood Urea Nitrogen 18 mg/dL (9-23); Calcium 9.1 mg/dL (8.7-10.4); Carbon Dioxide 30 mmol/L (20-31); Chloride 101 mmol/L (98-107); Potassium 4.1 mmol/L (3.5-5.1); Sodium 139 mmol/L (136-145); Total Protein 6.4 g/dL (5.7-8.2)
[2024-01-25 03:44] LABS: Alanine Aminotransferase 50 U/L (7-40); Glucose 184 mg/dL (74-106)
--- NOTE | 2024-01-25 06:03 | DVH ---
CHEST RADIOGRAPH Indication: intubated Technique: Single frontal view of the chest was obtained COMPARISON: XY CHEST XRAY 1 VIEW on DOS: 01/24/24, XY CHEST PORTABLE on DOS: 01/23/24, XY CHEST HERMAN BLE on DOS: 01/21/24, XY CHEST XRAY 1 VIEW on DOS: 01/24/24 FINDINGS: Lines and Tubes: Endotracheal tube and enteric catheter in satisfactory position. Lungs: Multi focal airspace disease. Pleura: No effusion. No pneumothorax. Cardiomediastinal contours: Unremarkable Bones: Unremarkable IMPRESSION: Lines and tubes in satisfactory position. No significant interval change.
[2024-01-25 06:50] LABS: Base Excess 3.5 mmol/L (-2.0-3.0)
--- NOTE | 2024-01-25 12:27 | DVHPN2 ---
Progress Note - Dictate Date Seen: Jan 25, 2024 Medical Necessity Reason Pt with a Central, PICC or Fol: Yes The following are medically ne: Reyes Catheter Reason for reyes catheter: Strict I&O vital signs Vital Sign Date Time Temp Pulse Resp B/P (MAP) Pulse Ox O2 Delivery O2 Flow Rate FiO2 01/25/24 11:59 136/73 01/25/24 11:32 71 28 94 75 01/25/24 08:00 Mechanical Ventilator+ 01/25/24 07:46 99.1 210.4 Total Intake and Output 01/24/24 01/24/24 01/25/24 15:00 23:00 07:00 Intake Total 824.7 ml 1376.562 ml 1407.056 ml Output Total 1700 ml 2025 ml Balance 824.7 ml -323.438 ml -617.944 ml medications Current Medications Medications Dose Ordered Sig/Reji Route Start Time Stop Time Status Last Admin Dose Admin Ondansetron HCl 4 mg Q4HP PRN IV 01/19/24 20:15 Docusate Sodium 100 mg BIDPRN PRN PO 01/19/24 20:15 01/23/24 00:48 100 MG Pantoprazole Sodium 40 mg DAILY IV 01/20/24 10:00 01/25/24 10:05 40 MG Nitroglycerin 0.4 mg Q5MINP PRN SL 01/19/24 20:15 Morphine Sulfate 2 mg Q30M PRN IV 01/19/24 20:15 Midazolam HCl 50 ml @ 1 mls/hr Q24H IV 01/19/24 21:30 01/25/24 11:59 15 MLS/HR Propofol 100 ml @ 0 mls/hr Q0M IV 01/19/24 21:45 01/25/24 11:59 21.6 MLS/HR Fentanyl Citrate 250 ml @ 5 mls/hr Q24H IV 01/19/24 21:45 01/25/24 10:30 35 MLS/HR Aspirin 81 mg DAILY NG 01/20/24 10:00 01/24/24 14:34 81 MG Atorvastatin Calcium 40 mg HS PO 01/20/24 22:00 01/24/24 21:29 40 MG Enoxaparin Sodium 150 mg Q12HR SC 01/20/24 10:00 01/25/24 10:03 150 MG Latanoprost 1 drop QPM EACHEYE 01/20/24 18:00 01/24/24 19:05 1 DROP Patient Own Medication 400 mg MONTHLY IM 01/20/24 11:30 Lisinopril 20 mg DAILY PO 01/20/24 11:30 01/24/24 10:05 20 MG Nitroglycerin 250 ml @ 1.5 mls/hr Q24H IV 01/20/24 20:30 Albuterol 2.5 mg Q4HR NEB 01/20/24 22:00 01/25/24 09:48 2.5 MG Ipratropium [place] 0.5 mg Q4HR NEB 01/20/24 22:00 01/25/24 09:48 0.5 MG Doxycycline Hyclate 250 ml @ 125 mls/hr Q12H IV 01/21/24 14:30 01/25/24 01:44 125 MLS/HR Furosemide 40 mg BIDD IV 01/22/24 18:00 01/25/24 05:00 40 MG Enteral Nutritional Formula 1,000 ml 60ML/HR GT 01/22/24 14:00 01/24/24 05:35 1,000 ML Purified Water 100 ml Q6HR GT 01/22/24 18:00 01/25/24 05:01 100 ML Vancomycin HCl 0 ml @ 0 mls/hr UD IV 01/23/24 20:45 Vancomycin HCl 250 ml @ 250 mls/hr Q8H IV 01/24/24 12:00 01/25/24 03:37 250 MLS/HR Methylprednisolone Sodium Succinate 60 mg Q4HR IV 01/24/24 16:00 01/25/24 10:03 60 MG Rocuronium [place] 1000 mg/ Dextrose 250 ml @ 20.832 mls/ hr Q12H1M IV 01/24/24 17:30 01/25/24 06:30 20.832 MLS/HR Norepinephrine Bitartrate 250 ml @ 3.75 mls/hr Q24H IV 01/24/24 18:30 objective General Appearance: alert, no distress HEENT: EOMI, PERRLA, normal external inspect of ears, no icterus, no nasal drainage Neck: no carotid bruit, no jugular venous distention (JVD), no lymphadenopathy Chest: normal thorax Respiratory: clear to auscultation Cardiovascular: regular rate and rhythm, no diastolic murmur, no jugular venous distention (JVD), no rub, no systolic murmur Abdominal: soft, no hepatomegaly, no mass, no splenomegaly, no tenderness Genitourinary: grossly normal external Musculoskeletal: no joint tenderness, no swelling Extremities: normal pulses, no calf tenderness, no clubbing, no cyanosis, no edema Skin: no bruising, no jaundice, no rash Neurological: alert, No focal deficit laboratory and microbiology Laboratory Tests 01/25/24 03:13 Test 01/25/24 03:13 Range/Units Serum Glucose 184 H 74-106 mg/dL Problem List 1. Asthma with acute exacerbation Pulmonary consult, monitoring 2. Acute hypoxic respiratory failure requiring intubation Pulmonary Consult 3. Schizophrenia Monitoring 4. Autism Medication, monitoring 5. Elevated Troponin Cardiology Consult, monitoring 6. Cannabis Use Education Assessment/Plan Subjective Patient remains intubated and is currently on paralytics. Objective Patient was emergently intubated in the emergency room for acute hypoxic respiratory failure due to asthma exacerbation. Patient had been previously intubated 6 years before for the same reasons. Patient was positive for cannabis and benzodiazepines. White blood cell count is 16 however most likely related to steroids. Plan Continue antibiotics, vancomycin, and Doxy. Patient appears to be slowly improving today. FiO2 75%. Patient is now on paralytics and he is now tolerating being turned in the bed. Patient does have DTI to his coccyx. He was previously unstable to turn and would get very hypoxic. I did update patient's mother who was at bedside in regards to plan of care. Dietary Evaluation Review Comments: Current Jevity 1.2 @60ml/hr TF is meeting pt's need for protein at 60% for energy at 117% Continue monitor nutrition progress of nutrition support to meet 75% of his needs. Advance to a cardiac diet, texture as tolerated when medically feasible. Expected Outcomes/Goals: gradual weight loss Plan discussed with: Patient, Other VIK COBOS [employer] ENGINEER Jan 25, 2024 12:27
[2024-01-25] MEDS: VANCOMYCIN 1GM/250ML KIT 250 ML IV SCH (14:09)
--- NOTE | 2024-01-25 16:34 | DVHPN2 ---
Progress Note - Dictate Date Seen: Jan 25, 2024 Medical Necessity Reason Pt with a Central, PICC or Fol: Yes The following are medically ne: Reyes Catheter Reason for reyes catheter: Strict I&O vital signs Vital Sign Date Time Temp Pulse Resp B/P (MAP) Pulse Ox O2 Delivery O2 Flow Rate FiO2 01/25/24 15:36 61 28 124/35 (64) 94 60 01/25/24 14:00 Mechanical Ventilator+ 01/25/24 07:46 99.1 210.4 Total Intake and Output 01/24/24 01/24/24 01/25/24 15:00 23:00 07:00 Intake Total 824.7 ml 1376.562 ml 1407.056 ml Output Total 1700 ml 2025 ml Balance 824.7 ml -323.438 ml -617.944 ml medications Current Medications Medications Dose Ordered Sig/Reji Route Start Time Stop Time Status Last Admin Dose Admin Ondansetron HCl 4 mg Q4HP PRN IV 01/19/24 20:15 Docusate Sodium 100 mg BIDPRN PRN PO 01/19/24 20:15 01/23/24 00:48 100 MG Pantoprazole Sodium 40 mg DAILY IV 01/20/24 10:00 01/25/24 10:05 40 MG Nitroglycerin 0.4 mg Q5MINP PRN SL 01/19/24 20:15 Morphine Sulfate 2 mg Q30M PRN IV 01/19/24 20:15 Midazolam HCl 50 ml @ 1 mls/hr Q24H IV 01/19/24 21:30 01/25/24 14:48 15 MLS/HR Propofol 100 ml @ 0 mls/hr Q0M IV 01/19/24 21:45 01/25/24 14:48 21.6 MLS/HR Fentanyl Citrate 250 ml @ 5 mls/hr Q24H IV 01/19/24 21:45 01/25/24 10:30 35 MLS/HR Aspirin 81 mg DAILY NG 01/20/24 10:00 01/24/24 14:34 81 MG Atorvastatin Calcium 40 mg HS PO 01/20/24 22:00 01/24/24 21:29 40 MG Enoxaparin Sodium 150 mg Q12HR SC 01/20/24 10:00 01/25/24 10:03 150 MG Latanoprost 1 drop QPM EACHEYE 01/20/24 18:00 01/24/24 19:05 1 DROP Patient Own Medication 400 mg MONTHLY IM 01/20/24 11:30 Lisinopril 20 mg DAILY PO 01/20/24 11:30 01/24/24 10:05 20 MG Nitroglycerin 250 ml @ 1.5 mls/hr Q24H IV 01/20/24 20:30 Albuterol 2.5 mg Q4HR NEB 01/20/24 22:00 01/25/24 13:11 2.5 MG Ipratropium [place] 0.5 mg Q4HR NEB 01/20/24 22:00 01/25/24 13:11 0.5 MG Doxycycline Hyclate 250 ml @ 125 mls/hr Q12H IV 01/21/24 14:30 01/25/24 01:44 125 MLS/HR Furosemide 40 mg BIDD IV 01/22/24 18:00 01/25/24 05:00 40 MG Enteral Nutritional Formula 1,000 ml 60ML/HR GT 01/22/24 14:00 01/24/24 05:35 1,000 ML Purified Water 100 ml Q6HR GT 01/22/24 18:00 01/25/24 14:06 100 ML Vancomycin HCl 0 ml @ 0 mls/hr UD IV 01/23/24 20:45 Methylprednisolone Sodium Succinate 60 mg Q4HR IV 01/24/24 16:00 01/25/24 14:13 60 MG Rocuronium [place] 1000 mg/ Dextrose 250 ml @ 20.832 mls/ hr Q12H1M IV 01/24/24 17:30 01/25/24 06:30 20.832 MLS/HR Norepinephrine Bitartrate 250 ml @ 3.75 mls/hr Q24H IV 01/24/24 18:30 Vancomycin HCl 250 ml @ 250 mls/hr Q6H IV 01/25/24 14:00 01/25/24 14:09 250 MLS/HR laboratory and microbiology Laboratory Tests 01/25/24 03:13 Test 01/25/24 03:13 Range/Units Serum Glucose 184 H 74-106 mg/dL Assessment/Plan Patient is 28 year old morbidly obese male who presented to ED with shortness of breath. He has been intubated for respiratory failure and in on vent. support. Information was obtained by reviewing the chart and communicating with staff. Cardiology is involved for cardiac aspects of care. There is no report of chest pain prior to presentation. Reportedly, patient has been intubated for terminal manager previously for Asthma in other institution. Intubated and on vent support. Morbidly obese. Does have right sided subclavian access. No JVD. Mucosa is pink and wet. No goiter. Scattered rhonchi is heard. Cardiac: RR, no thrill, no gallop. Abdomen is soft, obese and distended. BS is +. Ext reveal 2+ edema bilaterally. DP is 2+ bilateral PMH reportedly includes Morbid obesity, Asthma (with previous intubations), Autism, Schizophrenia and ANNETTE. Smokes Marijuana and drinks alcohol WBC: 11.6 to 11.2 to 14.2 to 12.2 D-dimer: 0.43 (wnl) Creat: 0.73 - 0.70 - 0.67 - 0.76 K: 4.1 - 4.3 - 4.1 - 4.2 - 4.0 BNP: 561.97 Trop (high sensitive): 61 - 62 - 131 - 132 - 91 - 82 TSH: 0.48 Urine toxicology was positive for Cannabinoids and Benzodiazpin Chest xry revealed: FINDINGS: Lines and Tubes: None Lungs: Obscuration of the left hemidiaphragm Diffuse interstitial prominence. No pneumothorax. Cardiomediastinal contours: Moderate cardiomegaly Bones: No acute osseous abnormality. IMPRESSION: Moderate cardiomegaly with findings suggestive of congestive heart failure. Possible left-sided pleural effusion. Repeat chest xry revealed: Endotracheal tube projects terminating 1.8 cm superior to the zbigniew. Enteric tube is projecting below the GE junction without visualization of the port or tip. Low lung volumes with bronchovascular crowding. Possible small left-sided pleural effusion and/or atelectasis. No pneumothorax. Repeat chest xry revealed: Cardiomediastinal silhouette is enlarged. There is increased pulmonary vascular congestion, similar prior examination. Obscuration of the left hemidiaphragm may be on the basis of technique versus small pleural effusion. No discrete pneumothorax. Endotracheal tube and enteric tube are redemonstrated. Left IJ catheter tip is likely at the region of the brachiocephalic vein. Repeat chest xry revealed: FINDINGS: Cardiomediastinal silhouette is enlarged. There is increased pulmonary vascular congestion, similar prior examination. Obscuration of the left hemidiaphragm may be on the basis of technique versus small pleural effusion. No discrete pneumothorax. Endotracheal tube and enteric tube are redemonstrated. Left IJ catheter tip is likely at the region of the brachiocephalic vein. IMPRESSION: NO INTERVAL CHANGE. Repeat chest xry revealed: IMPRESSION: Improving pulmonary edema compared to prior exam. Repeat chest xry revealed: IMPRESSION: stable pulmonary edema compared to prior exam. Repeat holly xry revealed: IMPRESSION: Lines and tubes in satisfactory position. No significant interval change. Repeat Chest xray revealed: IMPRESSION: Lines and tubes in satisfactory position. No significant interval change. Venous duplex of lower ext revealed: Impression: 1. No right or left femoropopliteal venous thrombosis. 2. Left common femoral vein and proximal superficial femoral vein are not visible and therefore thrombus can not be excluded in those areas. EKG revealed: Sinus tachycardia with non-specific STT changes Tele reveals Sinus rhythm Echocardiogram revealed: Technically limited study secondary to poor acoustic windows. Left ventricle: Left ventricle was normal-sized with normal systolic function. LVEF was 60-65%. There was no gross wall motion abnormality observed. Right ventricle was not well visualized but it was dilated. Left atrium was normal-sized. Right atrium was not well visualized. Aortic valve was trileaflet and normal. There was no aortic insufficiency/stenosis. There was trivial mitral and tricuspid regurgitation. There was mild pulmonary valve insufficiency. As there was no good tricuspid regurgitation jet, right ventricular systolic pressure could not be estimated. There was no pericardial effusion. Patient is 28 year old male with history of morbid obesity who presented with respiratory failure. Does have history of Asthma and reportedly has been intubated for it before. Trop has been mildly elevated. ACS is less likely and increase in troponin most likely represents demand physiology. Still, component of type 1 physiology cannot be completely ruled out. Echo revealed dilated RV. As there was no good TR jet, RVSP could not be estimated. Pulmonary Hypertension cannot be ruled out. Pulmonary on board. Acute respiratory failure Asthma Asthma exacerbation Morbid obesity Abnormal trop Questionable heart failure, acute Bradycardia ( suspected sedation induced ) Cardiac suggestion for management: Manage in ICU IV diuresis Follow up electrolytes and kidney function test and correct abnormalities. Keep potassium above 4 and magnesium above 2 Lovenox for now ASA for now Follow up vital signs and correct hyper/hypotension. If needed add pressure support to keep MAP above 65 mmHg Bradycardia noted with increase in propofol. Pt remains on max dosage for fentanyl and versed and continues with vent compliance issues. Per RN, pulmonology to start patient on paralytic to assist. - Recommend maintaining lowest does of propofol needed to effectively sedate patient with primary use of versed and fentanyl. - HR stable currently while patient on paralytic Pulmonary follow up Further evaluation and management depends on the above and clinical course A total of 75 minutes was spent reviewing the patient record, examining the patient, making a diagnostic and therapeutic plan, discussing this plan with medical personnel, following up on diagnostic studies and following the patient for clinical stability excluding any and all procedures. At least 50% of this time was spent in direct, [id number] contact. Thank you for allowing me to participate in this patient's care. Further recommendations will depend on patient's clinical course. Please do not hesitate to contact me if you have any questions or concerns. This medical document was created using electronic medical record system with [employer] computerized dictation system. Although this document has been carefully reviewed, there may still be some phonetic and typographical errors. These areas are purely typographical due to the imperfection of the software programs, and do not reflect any compromise in the patient's medical care. Dietary Evaluation Review Comments: Current Jevity 1.2 @60ml/hr TF is meeting pt's need for protein at 60% for energy at 117% Continue monitor nutrition progress of nutrition support to meet 75% of his needs. Advance to a cardiac diet, texture as tolerated when medically feasible. Expected Outcomes/Goals: gradual weight loss Plan discussed with: Patient, Other (RN) Provider Statement: I have reviewed the case with my supervising physician. We have agreed with the plan of care. IVY [facility] Jan 25, 2024 16:34
--- NOTE | 2024-01-25 21:16 | DVHPN ---
DATE: 01/25/2024 PULMONARY FOLLOWUP Covering for Dr. Dow. PRIMARY PROVIDER: Irma Velasquez, nurse practitioner. SUBJECTIVE: The patient was desaturating yesterday with increased peak pressures. Plan was to try paralytics and if not better, then try pressure control ventilation; however, the patient did do better after paralytics, have been slowly tapering FIO2 and now at the time of my examination was up to 60% FIO2. The patient is in no distress. No significant secretions reported by bedside RN. Still remains on low-dose Levophed. Also, remains on very high sedation including Diprivan, fentanyl and Versed. BIS monitor is not available. The patient is being followed up for paralytics by [id number]. Bedside RN tells me that they have been 1-03/16. PHYSICAL EXAMINATION: VITAL SIGNS: Afebrile, heart rate 60, respiratory rate 28 with the ventilator, blood pressure 124/35, saturation 94 on 60% FIO2. NECK: Supple. No JVD. CHEST: Examination reveals diminished air entry, bibasilar rales, no wheezing. ABDOMEN: Soft, morbidly obese. Bowel sounds present. No organomegaly. EXTREMITIES: 1-2+ pedal edema. ASSESSMENT AND PLAN: Acute respiratory failure, severe hypoxia, moderate obesity, history of asthma, history of autism, schizophrenia and possible pulmonary edema. The patient is doing better with paralytic, slowly tapering on the paralytics, continue following with [id number]. Continue antibiotics. Continue to keep comfortable. The patient is on fentanyl, Versed and Diprivan. Keep RASS -2 to - 3. Continue Lovenox for DVT prophylaxis. Titrate oxygen as tolerated to keep saturation greater than 90. Peak pressures are improved now to 31, 32. Once the FIO2 is decreased below 60%, would recommend try to decrease PEEP. Check daily x-rays and blood gases while on the ventilator. Prognosis still remains guarded. The patient's sister and mother were updated. Also, discussed with bedside RN. Critical time was 45 minutes. MD HEENA Du/MEDHAT/RICHARD TID: [id number] RECEIPT: [id number] cc: Irma Velasquez NP
[2024-01-26] VITALS (116 sets, daily range): BP systolic 86–131; BP diastolic 39–76; PULSE 49–76; RESP 16–30; TEMP 98.4–99.1; O2SAT 90–99
[2024-01-26 03:56] LABS: Basophils # (auto) 0 10 ^3/uL (0-0.2); Eosinophils # (auto) 0 10 ^3/uL (0-0.8); Lymphocytes # (auto) 0.2 10 ^3/uL (0.4-5.4)
[2024-01-26 04:02] LABS: Basophils % (auto) 0.1 % (0.0-2.0); Hematocrit 40.5 % (41.0-53.0); Hemoglobin 12.4 g/dL (13.5-17.5); Mean Corpuscular Hemoglobin 22.3 pg (28.0-32.0); Mean Corpuscular Hgb Conc. 30.7 g/dL (32.0-36.0); Mean Corpuscular Volume 72.6 fL (80.0-100.0); Monocytes # (auto) 0.7 10 ^3/uL (0-1.3); Monocytes % (auto) 3.7 % (0.0-12.0); Neutrophils # (auto) 16.7 10 ^3/uL (1.6-8.6); Neutrophils % (auto) 95.2 % (37.0-80.0); Platelet Count (auto) 226 10^3/uL (140-450); Red Blood Cells 5.57 10^6/uL (4.5-5.90); Red Cell Distribution Width 18.7 % (11.8-14.3); White Blood Cell 17.5 10^3/uL (4.4-10.8)
[2024-01-26 04:12] LABS: Albumin 3.6 g/dL (3.2-4.8); Alkaline Phosphatase 50 U/L (46-116); Anion Gap 6 (5-15); Aspartate Aminotransferase 26 U/L (13-40); Blood Urea Nitrogen 15 mg/dL (9-23); Calcium 9.1 mg/dL (8.7-10.4); Chloride 100 mmol/L (98-107); Magnesium 2.4 mg/dL (1.6-2.6); Potassium 3.9 mmol/L (3.5-5.1); Sodium 140 mmol/L (136-145)
[2024-01-26 04:13] LABS: Bilirubin, Total 0.9 mg/dL (0.2-1.0)
[2024-01-26 04:14] LABS: Alanine Aminotransferase 53 U/L (7-40); Carbon Dioxide 34 mmol/L (20-31); Glucose 185 mg/dL (74-106)
--- NOTE | 2024-01-26 05:04 | DVH ---
CHEST RADIOGRAPH Indication: PT INTUBATED Technique: Single frontal view of the chest was obtained COMPARISON: XY CHEST XRAY 1 VIEW on DOS: 01/25/24, XY CHEST XRAY 1 VIEW on DOS: 01/24/24, XY CHEST PO RTABLE on DOS: 01/23/24, XY CHEST XRAY 1 VIEW on DOS: 01/25/24 FINDINGS: Lines and Tubes: Endotracheal tube and enteric catheter in satisfactory position. Lungs: Multi focal airspace disease. Pleura: No effusion. No pneumothorax. Cardiomediastinal contours: Unremarkable Bones: Unremarkable IMPRESSION: Lines and tubes in satisfactory position. No significant interval change.
[2024-01-26 07:37] LABS: Base Excess 6.4 mmol/L (-2.0-3.0)
--- NOTE | 2024-01-26 08:34 | MEDREC ---
[facility] ASP Intervention Section I [facility] ASP Intervention: Review courses of therapy (LEUKOCYTOSIS POTENTIALLY DUE TO CS (METHYLPREDNISOLONE 60 MG Q4H) - STAPHYLOCOCCUS EPIDERMIS IN ONLY ONE OF THE BLOOD CULTURE - RESPIRATORY CX NORMAL OROPHARYNGEAL JONO - MRSA NARES NEGATIVE - ASTHMA EXACERBATION - PLEASE CONSIDER D/C OF VANCOMYCIN DEESCA LATION IF CLINICALLY APPROPRIATE) SKYLER HURST PHARMACIST Jan 26, 2024 08:34
--- NOTE | 2024-01-26 09:00 | DVHPN2 ---
Progress Note - Dictate Date Seen: Jan 26, 2024 Medical Necessity Reason Pt with a Central, PICC or Fol: Yes The following are medically ne: Reyes Catheter Reason for reyes catheter: Strict I&O vital signs Vital Sign Date Time Temp Pulse Resp B/P (MAP) Pulse Ox O2 Delivery O2 Flow Rate FiO2 01/26/24 08:43 111/59 01/26/24 06:49 53 28 94 60 01/26/24 06:31 98.8 98.8 01/26/24 06:00 Mechanical Ventilator+ Total Intake and Output 01/25/24 01/25/24 01/26/24 15:00 23:00 07:00 Intake Total 1081.089 ml 1527.306 ml 1103.690 ml Output Total 1200 ml 950 ml 2700 ml Balance -118.911 ml 577.306 ml -1596.310 ml medications Current Medications Medications Dose Ordered Sig/Reji Route Start Time Stop Time Status Last Admin Dose Admin Ondansetron HCl 4 mg Q4HP PRN IV 01/19/24 20:15 Docusate Sodium 100 mg BIDPRN PRN PO 01/19/24 20:15 01/23/24 00:48 100 MG Pantoprazole Sodium 40 mg DAILY IV 01/20/24 10:00 01/25/24 10:05 40 MG Nitroglycerin 0.4 mg Q5MINP PRN SL 01/19/24 20:15 Morphine Sulfate 2 mg Q30M PRN IV 01/19/24 20:15 Midazolam HCl 50 ml @ 1 mls/hr Q24H IV 01/19/24 21:30 01/26/24 08:43 15 MLS/HR Propofol 100 ml @ 0 mls/hr Q0M IV 01/19/24 21:45 01/26/24 08:42 21.6 MLS/HR Fentanyl Citrate 250 ml @ 5 mls/hr Q24H IV 01/19/24 21:45 01/26/24 07:35 35 MLS/HR Aspirin 81 mg DAILY NG 01/20/24 10:00 01/24/24 14:34 81 MG Atorvastatin Calcium 40 mg HS PO 01/20/24 22:00 01/25/24 21:34 40 MG Enoxaparin Sodium 150 mg Q12HR SC 01/20/24 10:00 01/25/24 21:34 150 MG Latanoprost 1 drop QPM EACHEYE 01/20/24 18:00 01/25/24 17:42 1 DROP Patient Own Medication 400 mg MONTHLY IM 01/20/24 11:30 Lisinopril 20 mg DAILY PO 01/20/24 11:30 01/24/24 10:05 20 MG Nitroglycerin 250 ml @ 1.5 mls/hr Q24H IV 01/20/24 20:30 Albuterol 2.5 mg Q4HR NEB 01/20/24 22:00 01/26/24 06:53 2.5 MG Ipratropium [place] 0.5 mg Q4HR NEB 01/20/24 22:00 01/26/24 02:06 0.5 MG Doxycycline Hyclate 250 ml @ 125 mls/hr Q12H IV 01/21/24 14:30 01/26/24 02:43 125 MLS/HR Furosemide 40 mg BIDD IV 01/22/24 18:00 01/26/24 05:06 40 MG Enteral Nutritional Formula 1,000 ml 60ML/HR GT 01/22/24 14:00 01/24/24 05:35 1,000 ML Purified Water 100 ml Q6HR GT 01/22/24 18:00 01/26/24 05:07 100 ML Vancomycin HCl 0 ml @ 0 mls/hr UD IV 01/23/24 20:45 Methylprednisolone Sodium Succinate 60 mg Q4HR IV 01/24/24 16:00 01/26/24 05:06 60 MG Rocuronium [place] 1000 mg/ Dextrose 250 ml @ 20.832 mls/ hr Q12H1M IV 01/24/24 17:30 01/25/24 23:20 14.582 MLS/HR Norepinephrine Bitartrate 250 ml @ 3.75 mls/hr Q24H IV 01/24/24 18:30 Vancomycin HCl 250 ml @ 250 mls/hr Q6H IV 01/25/24 14:00 01/26/24 01:41 250 MLS/HR laboratory and microbiology Laboratory Tests 01/26/24 03:28 Test 01/26/24 03:28 Range/Units Serum Glucose 185 H 74-106 mg/dL Assessment/Plan Patient is 28 year old morbidly obese male who presented to ED with shortness of breath. He has been intubated for respiratory failure and in on vent. support. Information was obtained by reviewing the chart and communicating with staff. Cardiology is involved for cardiac aspects of care. There is no report of chest pain prior to presentation. Reportedly, patient has been intubated for intermediate frame tender previously for Asthma in other institution. Intubated and on vent support. Morbidly obese. Does have right sided subclavian access. No JVD. Mucosa is pink and wet. No goiter. Scattered rhonchi is heard. Cardiac: RR, no thrill, no gallop. Abdomen is soft, obese and distended. BS is +. Ext reveal 2+ edema bilaterally. DP is 2+ bilateral PMH reportedly includes Morbid obesity, Asthma (with previous intubations), Autism, Schizophrenia and ANNETTE. Smokes Marijuana and drinks alcohol WBC: 11.6 to 11.2 to 14.2 to 12.2 to 13.3 to 16.4 to 17.5 D-dimer: 0.43 (wnl) Creat: 0.73 - 0.70 - 0.67 - 0.76 - 0.71 - 0.70 - 0.69 - 0.59 - 0.60 K: 4.1 - 4.3 - 4.1 - 4.2 - 4.0 - 4.1 - 4.1 - 3.9 BNP: 561.97 - 173.31 Trop (high sensitive): 61 - 62 - 131 - 132 - 91 - 82 TSH: 0.48 Urine toxicology was positive for Cannabinoids and Benzodiazpin Chest xry revealed: FINDINGS: Lines and Tubes: None Lungs: Obscuration of the left hemidiaphragm Diffuse interstitial prominence. No pneumothorax. Cardiomediastinal contours: Moderate cardiomegaly Bones: No acute osseous abnormality. IMPRESSION: Moderate cardiomegaly with findings suggestive of congestive heart failure. Possible left-sided pleural effusion. Repeat chest xry revealed: Endotracheal tube projects terminating 1.8 cm superior to the zbigniew. Enteric tube is projecting below the GE junction without visualization of the port or tip. Low lung volumes with bronchovascular crowding. Possible small left-sided pleural effusion and/or atelectasis. No pneumothorax. Repeat chest xry revealed: Cardiomediastinal silhouette is enlarged. There is increased pulmonary vascular congestion, similar prior examination. Obscuration of the left hemidiaphragm may be on the basis of technique versus small pleural effusion. No discrete pneumothorax. Endotracheal tube and enteric tube are redemonstrated. Left IJ catheter tip is likely at the region of the brachiocephalic vein. Repeat chest xry revealed: FINDINGS: Cardiomediastinal silhouette is enlarged. There is increased pulmonary vascular congestion, similar prior examination. Obscuration of the left hemidiaphragm may be on the basis of technique versus small pleural effusion. No discrete pneumothorax. Endotracheal tube and enteric tube are redemonstrated. Left IJ catheter tip is likely at the region of the brachiocephalic vein. IMPRESSION: NO INTERVAL CHANGE. Repeat chest xry revealed: IMPRESSION: Improving pulmonary edema compared to prior exam. Repeat chest xry revealed: IMPRESSION: stable pulmonary edema compared to prior exam. Repeat chest xry revealed: IMPRESSION: Lines and tubes in satisfactory position. No significant interval change. Repeat chest xry revealed: IMPRESSION: Lines and tubes in satisfactory position. No significant interval change. Repeat chest xry revealed: IMPRESSION: Lines and tubes in satisfactory position. No significant interval change. Venous duplex of lower ext revealed: Impression: 1. No right or left femoropopliteal venous thrombosis. 2. Left common femoral vein and proximal superficial femoral vein are not visible and therefore thrombus can not be excluded in those areas. EKG revealed: Sinus tachycardia with non-specific STT changes Tele reveals Sinus rhythm Echocardiogram revealed: Technically limited study secondary to poor acoustic windows. Left ventricle: Left ventricle was normal-sized with normal systolic function. LVEF was 60-65%. There was no gross wall motion abnormality observed. Right ventricle was not well visualized but it was dilated. Left atrium was normal-sized. Right atrium was not well visualized. Aortic valve was trileaflet and normal. There was no aortic insufficiency/stenosis. There was trivial mitral and tricuspid regurgitation. There was mild pulmonary valve insufficiency. As there was no good tricuspid regurgitation jet, right ventricular systolic pressure could not be estimated. There was no pericardial effusion. Patient is 28 year old male with history of morbid obesity who presented with respiratory failure. Does have history of Asthma and reportedly has been intubated for it before. Trop has been mildly elevated. ACS is less likely and increase in troponin most likely represents demand physiology. Still, component of type 1 physiology cannot be completely ruled out. Echo revealed dilated RV. As there was no good TR jet, RVSP could not be estimated. Pulmonary Hypertension cannot be ruled out. Pulmonary on board. On sedation Acute respiratory failure Asthma Asthma exacerbation Morbid obesity Abnormal trop Questionable heart failure, acute Cardiac suggestion for management: Manage in ICU IV diuresis Follow up electrolytes and kidney function test and correct abnormalities. Keep potassium above 4 and magnesium above 2 Lovenox ASA Follow up vital signs and correct hyper/hypotension. If needed add pressure support to keep MAP above 65 mmHg Pulmonary follow up Further evaluation and management depends on the above and clinical course A total of 75 minutes was spent reviewing the patient record, examining the patient, making a diagnostic and therapeutic plan, discussing this plan with medical personnel, following up on diagnostic studies and following the patient for clinical stability excluding any and all procedures. At least 50% of this time was spent in direct, [id number] contact. Thank you for allowing me to participate in this patient's care. Further recommendations will depend on patient's clinical course. Please do not hesitate to contact me if you have any questions or concerns. This medical document was created using electronic medical record system with [employer] computerized dictation system. Although this document has been carefully reviewed, there may still be some phonetic and typographical errors. These areas are purely typographical due to the imperfection of the software programs, and do not reflect any compromise in the patient's medical care. Dietary Evaluation Review Comments: Current Jevity 1.2 @60ml/hr TF is meeting pt's need for protein at 60% for energy at 117% Continue monitor nutrition progress of nutrition support to meet 75% of his needs. Advance to a cardiac diet, texture as tolerated when medically feasible. Expected Outcomes/Goals: gradual weight loss Plan discussed with: Other (nurse) PARRIS MCKINNON MD Jan 26, 2024 09:00
[2024-01-26] MEDS: POTASSIUM CHL 20MEQ/100ML 100 ML IV ONE (10:49)
--- NOTE | 2024-01-26 11:02 | DVHPN2 ---
Progress Note - Dictate Date Seen: Jan 26, 2024 Medical Necessity Reason Pt with a Central, PICC or Fol: Yes The following are medically ne: Reyes Catheter Reason for reyes catheter: Strict I&O vital signs Vital Sign Date Time Temp Pulse Resp B/P (MAP) Pulse Ox O2 Delivery O2 Flow Rate FiO2 01/26/24 10:39 61 28 113/58 (76) 95 60 01/26/24 09:17 98.8 209.8 01/26/24 08:00 Mechanical Ventilator+ Total Intake and Output 01/25/24 01/25/24 01/26/24 15:00 23:00 07:00 Intake Total 1081.089 ml 1527.306 ml 1187.789 ml Output Total 1200 ml 950 ml 2700 ml Balance -118.911 ml 577.306 ml -1512.211 ml medications Current Medications Medications Dose Ordered Sig/Reji Route Start Time Stop Time Status Last Admin Dose Admin Ondansetron HCl 4 mg Q4HP PRN IV 01/19/24 20:15 Docusate Sodium 100 mg BIDPRN PRN PO 01/19/24 20:15 01/23/24 00:48 100 MG Pantoprazole Sodium 40 mg DAILY IV 01/20/24 10:00 01/26/24 09:57 40 MG Nitroglycerin 0.4 mg Q5MINP PRN SL 01/19/24 20:15 Morphine Sulfate 2 mg Q30M PRN IV 01/19/24 20:15 Midazolam HCl 50 ml @ 1 mls/hr Q24H IV 01/19/24 21:30 01/26/24 08:43 15 MLS/HR Propofol 100 ml @ 0 mls/hr Q0M IV 01/19/24 21:45 01/26/24 08:42 21.6 MLS/HR Fentanyl Citrate 250 ml @ 5 mls/hr Q24H IV 01/19/24 21:45 01/26/24 07:35 35 MLS/HR Aspirin 81 mg DAILY NG 01/20/24 10:00 01/26/24 10:01 81 MG Atorvastatin Calcium 40 mg HS PO 01/20/24 22:00 01/25/24 21:34 40 MG Enoxaparin Sodium 150 mg Q12HR SC 01/20/24 10:00 01/26/24 10:02 150 MG Latanoprost 1 drop QPM EACHEYE 01/20/24 18:00 01/25/24 17:42 1 DROP Patient Own Medication 400 mg MONTHLY IM 01/20/24 11:30 Lisinopril 20 mg DAILY PO 01/20/24 11:30 01/24/24 10:05 20 MG Nitroglycerin 250 ml @ 1.5 mls/hr Q24H IV 01/20/24 20:30 Albuterol 2.5 mg Q4HR NEB 01/20/24 22:00 01/26/24 10:39 2.5 MG Ipratropium [place] 0.5 mg Q4HR NEB 01/20/24 22:00 01/26/24 10:39 0.5 MG Doxycycline Hyclate 250 ml @ 125 mls/hr Q12H IV 01/21/24 14:30 01/26/24 02:43 125 MLS/HR Enteral Nutritional Formula 1,000 ml 60ML/HR GT 01/22/24 14:00 01/24/24 05:35 1,000 ML Purified Water 100 ml Q6HR GT 01/22/24 18:00 01/26/24 05:07 100 ML Vancomycin HCl 0 ml @ 0 mls/hr UD IV 01/23/24 20:45 Methylprednisolone Sodium Succinate 60 mg Q4HR IV 01/24/24 16:00 01/26/24 10:00 60 MG Rocuronium [place] 1000 mg/ Dextrose 250 ml @ 20.832 mls/ hr Q12H1M IV 01/24/24 17:30 01/25/24 23:20 14.582 MLS/HR Norepinephrine Bitartrate 250 ml @ 3.75 mls/hr Q24H IV 01/24/24 18:30 Vancomycin HCl 250 ml @ 250 mls/hr Q6H IV 01/25/24 14:00 01/26/24 09:39 250 MLS/HR Furosemide 40 mg DAILY IV 01/27/24 09:00 objective General Appearance: alert, no distress HEENT: EOMI, PERRLA, normal external inspect of ears, no icterus, no nasal drainage Neck: no carotid bruit, no jugular venous distention (JVD), no lymphadenopathy Chest: normal thorax Respiratory: clear to auscultation Cardiovascular: regular rate and rhythm, no diastolic murmur, no jugular venous distention (JVD), no rub, no systolic murmur Abdominal: soft, no hepatomegaly, no mass, no splenomegaly, no tenderness Genitourinary: grossly normal external Musculoskeletal: no joint tenderness, no swelling Extremities: normal pulses, no calf tenderness, no clubbing, no cyanosis, no edema Skin: no bruising, no jaundice, no rash Neurological: alert, No focal deficit laboratory and microbiology Laboratory Tests 01/26/24 03:28 Test 01/26/24 03:28 Range/Units Serum Glucose 185 H 74-106 mg/dL Problem List 1. Asthma with acute exacerbation Pulmonary consult, monitoring 2. Acute hypoxic respiratory failure requiring intubation Pulmonary Consult 3. Schizophrenia Monitoring 4. Autism Medication, monitoring 5. Elevated Troponin Cardiology Consult, monitoring 6. Cannabis Use Education Assessment/Plan Subjective: Patient remains paralytic on the ventilator. Objective: Patient remains intubated since emergent intubation in the emergency room on 01/19/2024 for acute hypoxic respiratory failure due to acute asthma exacerbation. FiO2 at 60%. Most likely has underlying pneumonia of community- acquired origin with gram-positive and gram-negative organisms. Plan: Continue current treatment, continue IV antibiotics with vancomycin and doxycycline, administer diuretics, and continue ventilator management under pulmonary care. Dietary Evaluation Review Comments: Current Jevity 1.2 @60ml/hr TF is meeting pt's need for protein at 60% for energy at 117% Continue monitor nutrition progress of nutrition support to meet 75% of his needs. Advance to a cardiac diet, texture as tolerated when medically feasible. Expected Outcomes/Goals: gradual weight loss Plan discussed with: Patient, Other VIK COBOS NP Jan 26, 2024 11:02
[2024-01-26] MEDS: VANCOMYCIN 1.5GM/300ML 300 ML IV SCH (15:51)
[2024-01-26] MEDS: PROPOFOL 100 ML IV SCH (22:45)
[2024-01-27] VITALS (118 sets, daily range): BP systolic 99–133; BP diastolic 46–67; PULSE 56–124; RESP 24–33; TEMP 98.4–100; O2SAT 88–100
[2024-01-27 04:18] LABS: Basophils # (auto) 0 10 ^3/uL (0-0.2); Basophils % (auto) 0.2 % (0.0-2.0); Eosinophils # (auto) 0 10 ^3/uL (0-0.8); Hemoglobin 11.8 g/dL (13.5-17.5); Lymphocytes # (auto) 0.2 10 ^3/uL (0.4-5.4); Mean Corpuscular Volume 73.4 fL (80.0-100.0); Neutrophils % (auto) 95.1 % (37.0-80.0)
[2024-01-27 04:21] LABS: Hematocrit 39.2 % (41.0-53.0); Lymphocytes % (auto) 1.2 % (10.0-50.0); Mean Corpuscular Hemoglobin 22.1 pg (28.0-32.0); Mean Corpuscular Hgb Conc. 30.2 g/dL (32.0-36.0); Monocytes # (auto) 0.5 10 ^3/uL (0-1.3); Monocytes % (auto) 3.5 % (0.0-12.0); Neutrophils # (auto) 14.6 10 ^3/uL (1.6-8.6); Platelet Count (auto) 193 10^3/uL (140-450); Red Blood Cells 5.34 10^6/uL (4.5-5.90); Red Cell Distribution Width 18.6 % (11.8-14.3); White Blood Cell 15.3 10^3/uL (4.4-10.8)
[2024-01-27 06:34] LABS: Base Excess 5.7 mmol/L (-2.0-3.0)
[2024-01-27] MEDS: FUROSEMIDE 40 MG/4 ML VIAL IV SCH ×2 (07:26→09:50)
--- NOTE | 2024-01-27 08:17 | DVHPN2 ---
Progress Note - Dictate Date Seen: Jan 27, 2024 Medical Necessity Reason Pt with a Central, PICC or Fol: Yes The following are medically ne: Reyes Catheter Reason for reyes catheter: Strict I&O vital signs Vital Sign Date Time Temp Pulse Resp B/P (MAP) Pulse Ox O2 Delivery O2 Flow Rate FiO2 01/27/24 06:47 99.0 61 27 115/53 (73) 94 210.2 01/27/24 06:20 55 01/27/24 06:00 Mechanical Ventilator+ Total Intake and Output 01/26/24 01/26/24 01/27/24 15:00 23:00 07:00 Intake Total 1129.538 ml 1479.694 ml 1474.200 ml Output Total 2200 ml 1200 ml Balance 1129.538 ml -720.306 ml 274.200 ml medications Current Medications Medications Dose Ordered Sig/Reji Route Start Time Stop Time Status Last Admin Dose Admin Ondansetron HCl 4 mg Q4HP PRN IV 01/19/24 20:15 Pantoprazole Sodium 40 mg DAILY IV 01/20/24 10:00 01/26/24 09:57 40 MG Nitroglycerin 0.4 mg Q5MINP PRN SL 01/19/24 20:15 Morphine Sulfate 2 mg Q30M PRN IV 01/19/24 20:15 Midazolam HCl 50 ml @ 1 mls/hr Q24H IV 01/19/24 21:30 01/27/24 05:41 15 MLS/HR Fentanyl Citrate 250 ml @ 5 mls/hr Q24H IV 01/19/24 21:45 01/27/24 04:09 35 MLS/HR Aspirin 81 mg DAILY NG 01/20/24 10:00 01/26/24 10:01 81 MG Atorvastatin Calcium 40 mg HS PO 01/20/24 22:00 01/26/24 21:34 40 MG Enoxaparin Sodium 150 mg Q12HR SC 01/20/24 10:00 01/26/24 21:34 150 MG Latanoprost 1 drop QPM EACHEYE 01/20/24 18:00 01/26/24 17:58 1 DROP Patient Own Medication 400 mg MONTHLY IM 01/20/24 11:30 Lisinopril 20 mg DAILY PO 01/20/24 11:30 01/24/24 10:05 20 MG Nitroglycerin 250 ml @ 1.5 mls/hr Q24H IV 01/20/24 20:30 Albuterol 2.5 mg Q4HR NEB 01/20/24 22:00 01/27/24 06:20 2.5 MG Ipratropium [place] 0.5 mg Q4HR NEB 01/20/24 22:00 01/27/24 06:20 0.5 MG Doxycycline Hyclate 250 ml @ 125 mls/hr Q12H IV 01/21/24 14:30 01/27/24 02:06 125 MLS/HR Enteral Nutritional Formula 1,000 ml 60ML/HR GT 01/22/24 14:00 01/24/24 05:35 1,000 ML Purified Water 100 ml Q6HR GT 01/22/24 18:00 01/27/24 05:34 100 ML Vancomycin HCl 0 ml @ 0 mls/hr UD IV 01/23/24 20:45 Methylprednisolone Sodium Succinate 60 mg Q4HR IV 01/24/24 16:00 01/27/24 05:33 60 MG Rocuronium [place] 1000 mg/ Dextrose 250 ml @ 20.832 mls/ hr Q12H1M IV 01/24/24 17:30 01/27/24 00:07 10.416 MLS/HR Norepinephrine Bitartrate 250 ml @ 3.75 mls/hr Q24H IV 01/24/24 18:30 Vancomycin HCl 300 ml @ 200 mls/hr Q10H IV 01/26/24 13:00 01/26/24 23:49 200 MLS/HR Propofol 100 ml @ 5.046 mls/ hr [id number] IV 01/26/24 22:30 01/27/24 03:32 20.184 MLS/HR Furosemide 40 mg DAILY IV 01/27/24 10:00 Docusate Sodium 100 mg BIDP PRN GT 01/27/24 07:45 UNV laboratory and microbiology Laboratory Tests 01/27/24 03:49 01/26/24 03:28 Test 01/26/24 03:28 Range/Units Serum Glucose 185 H 74-106 mg/dL Assessment/Plan Patient is 28 year old morbidly obese male who presented to ED with shortness of breath. He has been intubated for respiratory failure and in on vent. support. Information was obtained by reviewing the chart and communicating with staff. Cardiology is involved for cardiac aspects of care. There is no report of chest pain prior to presentation. 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 Intubated and on vent support. Morbidly obese. Does have right sided subclavian access. No JVD. Mucosa is pink and wet. No goiter. Scattered rhonchi is heard. Cardiac: RR, no thrill, no gallop. Abdomen is soft, obese and distended. BS is +. Ext reveal 2+ edema bilaterally. DP is 2+ bilateral PMH reportedly includes Morbid obesity, Asthma (with previous intubations), Autism, Schizophrenia and ANNETTE. Smokes Marijuana and drinks alcohol WBC: 11.6 to 11.2 to 14.2 to 12.2 to 13.3 to 16.4 to 17.5 to 15.3 D-dimer: 0.43 (wnl) Creat: 0.73 - 0.70 - 0.67 - 0.76 - 0.71 - 0.70 - 0.69 - 0.59 - 0.60 - 0.52 K: 4.1 - 4.3 - 4.1 - 4.2 - 4.0 - 4.1 - 4.1 - 3.9 BNP: 561.97 - 173.31 Trop (high sensitive): 61 - 62 - 131 - 132 - 91 - 82 TSH: 0.48 Urine toxicology was positive for Cannabinoids and Benzodiazpin Chest xry revealed: FINDINGS: Lines and Tubes: None Lungs: Obscuration of the left hemidiaphragm Diffuse interstitial prominence. No pneumothorax. Cardiomediastinal contours: Moderate cardiomegaly Bones: No acute osseous abnormality. IMPRESSION: Moderate cardiomegaly with findings suggestive of congestive heart failure. Possible left-sided pleural effusion. Repeat chest xry revealed: Endotracheal tube projects terminating 1.8 cm superior to the zbigniew. Enteric tube is projecting below the GE junction without visualization of the port or tip. Low lung volumes with bronchovascular crowding. Possible small left-sided pleural effusion and/or atelectasis. No pneumothorax. Repeat chest xry revealed: Cardiomediastinal silhouette is enlarged. There is increased pulmonary vascular congestion, similar prior examination. Obscuration of the left hemidiaphragm may be on the basis of technique versus small pleural effusion. No discrete pneumothorax. Endotracheal tube and enteric tube are redemonstrated. Left IJ catheter tip is likely at the region of the brachiocephalic vein. Repeat chest xry revealed: FINDINGS: Cardiomediastinal silhouette is enlarged. There is increased pulmonary vascular congestion, similar prior examination. Obscuration of the left hemidiaphragm may be on the basis of technique versus small pleural effusion. No discrete pneumothorax. Endotracheal tube and enteric tube are redemonstrated. Left IJ catheter tip is likely at the region of the brachiocephalic vein. IMPRESSION: NO INTERVAL CHANGE. Repeat chest xry revealed: IMPRESSION: Improving pulmonary edema compared to prior exam. Repeat chest xry revealed: IMPRESSION: stable pulmonary edema compared to prior exam. Repeat chest xry revealed: IMPRESSION: Lines and tubes in satisfactory position. No significant interval change. Repeat chest xry revealed: IMPRESSION: Lines and tubes in satisfactory position. No significant interval change. Repeat chest xry revealed: IMPRESSION: Lines and tubes in satisfactory position. No significant interval change. Venous duplex of lower ext revealed: Impression: 1. No right or left femoropopliteal venous thrombosis. 2. Left common femoral vein and proximal superficial femoral vein are not visible and therefore thrombus can not be excluded in those areas. EKG revealed: Sinus tachycardia with non-specific STT changes Tele reveals Sinus rhythm Echocardiogram revealed: Technically limited study secondary to poor acoustic windows. Left ventricle: Left ventricle was normal-sized with normal systolic function. LVEF was 60-65%. There was no gross wall motion abnormality observed. Right ventricle was not well visualized but it was dilated. Left atrium was normal-sized. Right atrium was not well visualized. Aortic valve was trileaflet and normal. There was no aortic insufficiency/stenosis. There was trivial mitral and tricuspid regurgitation. There was mild pulmonary valve insufficiency. As there was no good tricuspid regurgitation jet, right ventricular systolic pressure could not be estimated. There was no pericardial effusion. Patient is 28 year old male with history of morbid obesity who presented with respiratory failure. Does have history of Asthma and reportedly has been intubated for it before. Trop has been mildly elevated. ACS is less likely and increase in troponin most likely represents demand physiology. Still, component of type 1 physiology cannot be completely ruled out. Echo revealed dilated RV. As there was no good TR jet, RVSP could not be estimated. Pulmonary Hypertension cannot be ruled out. Pulmonary on board. On sedation Acute respiratory failure Asthma Asthma exacerbation Morbid obesity Abnormal trop Questionable heart failure, acute Cardiac suggestion for management: Manage in ICU IV diuresis Follow up electrolytes and kidney function test and correct abnormalities. Keep potassium above 4 and magnesium above 2 Lovenox ASA Follow up vital signs and correct hyper/hypotension. If needed add pressure support to keep MAP above 65 mmHg Pulmonary follow up Further evaluation and management depends on the above and clinical course A total of 75 minutes was spent reviewing the patient record, examining the patient, making a diagnostic and therapeutic plan, discussing this plan with medical personnel, following up on diagnostic studies and following the patient for clinical stability excluding any and all procedures. At least 50% of this time was spent in direct, [id number] contact. Thank you for allowing me to participate in this patient's care. Further recommendations will depend on patient's clinical course. Please do not hesitate to contact me if you have any questions or concerns. This medical document was created using electronic medical record system with [employer] computerized dictation system. Although this document has been carefully reviewed, there may still be some phonetic and typographical errors. These areas are purely typographical due to the imperfection of the software programs, and do not reflect any compromise in the patient's medical care. Dietary Evaluation Review Comments: Current Jevity 1.2 @60ml/hr TF is meeting pt's need for protein at 60% for energy at 117% Continue monitor nutrition progress of nutrition support to meet 75% of his needs. Advance to a cardiac diet, texture as tolerated when medically feasible. Expected Outcomes/Goals: gradual weight loss Plan discussed with: Other (nurse) PARRIS MCKINNON MD Jan 27, 2024 08:17
--- NOTE | 2024-01-27 09:37 | DVHPN2 ---
Progress Note - Dictate Date Seen: Jan 26, 2024 Medical Necessity Reason Pt with a Central, PICC or Fol: Yes The following are medically ne: Reyes Catheter Reason for reyes catheter: Strict I&O Subjective Patient seen and examined at bedside. Sedated, intubated on mechanical ventilator. Overnight events reviewed. vital signs Vital Sign Date Time Temp Pulse Resp B/P (MAP) Pulse Ox O2 Delivery O2 Flow Rate FiO2 01/27/24 08:17 64 28 114/51 (72) 93 55 01/27/24 06:47 99.0 210.2 01/27/24 06:00 Mechanical Ventilator+ Total Intake and Output 01/26/24 01/26/24 01/27/24 15:00 23:00 07:00 Intake Total 1129.538 ml 1479.694 ml 1474.200 ml Output Total 2200 ml 1200 ml Balance 1129.538 ml -720.306 ml 274.200 ml medications Current Medications Medications Dose Ordered Sig/Reji Route Start Time Stop Time Status Last Admin Dose Admin Ondansetron HCl 4 mg Q4HP PRN IV 01/19/24 20:15 Pantoprazole Sodium 40 mg DAILY IV 01/20/24 10:00 01/26/24 09:57 40 MG Nitroglycerin 0.4 mg Q5MINP PRN SL 01/19/24 20:15 Morphine Sulfate 2 mg Q30M PRN IV 01/19/24 20:15 Midazolam HCl 50 ml @ 1 mls/hr Q24H IV 01/19/24 21:30 01/27/24 05:41 15 MLS/HR Fentanyl Citrate 250 ml @ 5 mls/hr Q24H IV 01/19/24 21:45 01/27/24 04:09 35 MLS/HR Aspirin 81 mg DAILY NG 01/20/24 10:00 01/26/24 10:01 81 MG Atorvastatin Calcium 40 mg HS PO 01/20/24 22:00 01/26/24 21:34 40 MG Enoxaparin Sodium 150 mg Q12HR SC 01/20/24 10:00 01/26/24 21:34 150 MG Latanoprost 1 drop QPM EACHEYE 01/20/24 18:00 01/26/24 17:58 1 DROP Patient Own Medication 400 mg MONTHLY IM 01/20/24 11:30 Lisinopril 20 mg DAILY PO 01/20/24 11:30 01/24/24 10:05 20 MG Nitroglycerin 250 ml @ 1.5 mls/hr Q24H IV 01/20/24 20:30 Albuterol 2.5 mg Q4HR NEB 01/20/24 22:00 01/27/24 06:20 2.5 MG Ipratropium [place] 0.5 mg Q4HR NEB 01/20/24 22:00 01/27/24 06:20 0.5 MG Doxycycline Hyclate 250 ml @ 125 mls/hr Q12H IV 01/21/24 14:30 01/27/24 02:06 125 MLS/HR Enteral Nutritional Formula 1,000 ml 60ML/HR GT 01/22/24 14:00 01/24/24 05:35 1,000 ML Purified Water 100 ml Q6HR GT 01/22/24 18:00 01/27/24 05:34 100 ML Vancomycin HCl 0 ml @ 0 mls/hr UD IV 01/23/24 20:45 Methylprednisolone Sodium Succinate 60 mg Q4HR IV 01/24/24 16:00 01/27/24 05:33 60 MG Rocuronium [place] 1000 mg/ Dextrose 250 ml @ 20.832 mls/ hr Q12H1M IV 01/24/24 17:30 01/27/24 00:07 10.416 MLS/HR Norepinephrine Bitartrate 250 ml @ 3.75 mls/hr Q24H IV 01/24/24 18:30 Vancomycin HCl 300 ml @ 200 mls/hr Q10H IV 01/26/24 13:00 01/26/24 23:49 200 MLS/HR Propofol 100 ml @ 5.046 mls/ hr [id number] IV 01/26/24 22:30 01/27/24 08:54 20.184 MLS/HR Furosemide 40 mg DAILY IV 01/27/24 10:00 Docusate Sodium 100 mg BIDP PRN GT 01/27/24 07:45 objective Gen.: Patient lying in bed in medical ICU. Sedated, intubated on mechanical ventilator. Head: Normocephalic, atraumatic. Eyes: PERRLA. Ears: Normal external anatomy. Throat: Endotracheal tube and orogastric tube in place. Neck: Supple, trachea midline. Chest: Transmitted breath sounds bilaterally. Decreased air entry bilaterally. No wheezing. Bibasilar crackles. Cardiovascular: Positive S1, positive S2. Regular rate and rhythm. Abdomen: Positive bowel sounds in all 4 quadrants. Soft, nontender, nondistended. : Reyes in place. Normal external genitalia. Rectal: Deferred. Skin: Warm, dry. Intact. Extremities: 2+ radial pulses bilaterally. No lower extremity edema. Neuro: Sedated. laboratory and microbiology Laboratory Tests 01/27/24 03:49 01/26/24 03:28 Test 01/26/24 03:28 Range/Units Serum Glucose 185 H 74-106 mg/dL Assessment/Plan Impression: Acute hypoxic respiratory failure On mechanical ventilator Acute exacerbation of asthma Elevated Troponin Schizophrenia Autism Cannabinoid Use Morbid obesity BMI 60.5 Pulmonary edema Events: Remains on vent support On AC mode with RR 28, VT 500, PEEP 12, FiO2 60% On paralytic - rocuronium. Sedated on Fentanyl, Versed. Taper FiO2 as tolerated Improved O2 requirements with paralytic. ABG reviewed, compensated. CXR notable for multifocal airspace disease. No effusion or pneumothorax. Continue bronchodilators IV steroids Continue antibiotics - vancomycin Tube feeds for nutritional support Diurese w/ Lasix QD Cardiology recs appreciated. Monitor renal function Monitor electrolytes. Supplement as necessary. Monitor ins and outs. Labs and imaging reviewed. Rest of plan as noted below. Plan: s/p intubation on mechanical ventilator. On AC mode with RR 28, VT 500, PEEP 12, FiO2 60% Titrate FIO2 to keep O2 saturation above 90%. VAP bundle. Daily ABG and CXR while intubated Sedate for ventilator synchrony Pt does not tolerate turns. Derecruitment. Turn carefully. Elevated Troponin - Cardiology recs appreciated. Continue bronchodilators Antibiotics. F/u cultures. Start pressors if necessary to maintain a mean arterial blood pressure greater than 65 mmHg. Monitor renal function Monitor electrolytes. Supplement as necessary. Monitor ins and outs. Diet and lifestyle modifications for weight reduction Morbid obesity - complicates all care GI prophylaxis. DVT prophylaxis. Prognosis: Poor given patient's multiple co-morbidities. Condition: Critical Rest of plan per hospitalist and other consultants. A total of 35 minutes of critical care time was spent reviewing the patient record, examining the patient, making a diagnostic and therapeutic plan, discussing this plan with the medical personnel, following up on diagnostic studies and following the patient for clinical stability excluding any and all procedures. At least 50% of this time was spent in direct, [id number] contact. Thank you Irma Velasquez, RADHA, for allowing me to participate in this patient's care. Further recommendations will depend on the patient's clinical course. Please do not hesitate to contact me if you have any questions or concerns. This medical document was created using an electronic medical record system with [employer] dictation system. Although these documentations are being carefully reviewed, there may still be some phonetic and typographical changes. The errors are purely typographical, due to imperfection on the software program, and do not reflect any compromise in the patient's medical care. Dietary Evaluation Review Comments: Current Jevity 1.2 @60ml/hr TF is meeting pt's need for protein at 60% for energy at 117% Continue monitor nutrition progress of nutrition support to meet 75% of his needs. Advance to a cardiac diet, texture as tolerated when medically feasible. Expected Outcomes/Goals: gradual weight loss Plan discussed with: Other (SAIGE Carter) Critical Care Time(min): 35 VERÓNICA MERCER MD Jan 27, 2024 09:37
[2024-01-27] MEDS: DOCUSATE ORAL LIQUID 100 MG/10 ML UD GT PRN (09:54)
--- NOTE | 2024-01-27 09:56 | DVHPN2 ---
Progress Note - Dictate Date Seen: Jan 27, 2024 Medical Necessity Reason Pt with a Central, PICC or Fol: Yes The following are medically ne: Reyes Catheter Reason for reyes catheter: Strict I&O vital signs Vital Sign Date Time Temp Pulse Resp B/P (MAP) Pulse Ox O2 Delivery O2 Flow Rate FiO2 01/27/24 09:53 100/46 01/27/24 09:52 73 28 92 50 01/27/24 06:47 99.0 210.2 01/27/24 06:00 Mechanical Ventilator+ Total Intake and Output 01/26/24 01/26/24 01/27/24 15:00 23:00 07:00 Intake Total 1129.538 ml 1479.694 ml 1474.200 ml Output Total 2200 ml 1200 ml Balance 1129.538 ml -720.306 ml 274.200 ml medications Current Medications Medications Dose Ordered Sig/Reji Route Start Time Stop Time Status Last Admin Dose Admin Ondansetron HCl 4 mg Q4HP PRN IV 01/19/24 20:15 Pantoprazole Sodium 40 mg DAILY IV 01/20/24 10:00 01/27/24 09:50 40 MG Nitroglycerin 0.4 mg Q5MINP PRN SL 01/19/24 20:15 Morphine Sulfate 2 mg Q30M PRN IV 01/19/24 20:15 Midazolam HCl 50 ml @ 1 mls/hr Q24H IV 01/19/24 21:30 01/27/24 09:55 15 MLS/HR Fentanyl Citrate 250 ml @ 5 mls/hr Q24H IV 01/19/24 21:45 01/27/24 04:09 35 MLS/HR Aspirin 81 mg DAILY NG 01/20/24 10:00 01/27/24 09:53 81 MG Atorvastatin Calcium 40 mg HS PO 01/20/24 22:00 01/26/24 21:34 40 MG Enoxaparin Sodium 150 mg Q12HR SC 01/20/24 10:00 01/27/24 09:53 150 MG Latanoprost 1 drop QPM EACHEYE 01/20/24 18:00 01/26/24 17:58 1 DROP Patient Own Medication 400 mg MONTHLY IM 01/20/24 11:30 Lisinopril 20 mg DAILY PO 01/20/24 11:30 01/24/24 10:05 20 MG Nitroglycerin 250 ml @ 1.5 mls/hr Q24H IV 01/20/24 20:30 Albuterol 2.5 mg Q4HR NEB 01/20/24 22:00 01/27/24 09:52 2.5 MG Ipratropium [place] 0.5 mg Q4HR NEB 01/20/24 22:00 01/27/24 09:52 0.5 MG Doxycycline Hyclate 250 ml @ 125 mls/hr Q12H IV 01/21/24 14:30 01/27/24 02:06 125 MLS/HR Enteral Nutritional Formula 1,000 ml 60ML/HR GT 01/22/24 14:00 01/24/24 05:35 1,000 ML Purified Water 100 ml Q6HR GT 01/22/24 18:00 01/27/24 09:53 100 ML Vancomycin HCl 0 ml @ 0 mls/hr UD IV 01/23/24 20:45 Methylprednisolone Sodium Succinate 60 mg Q4HR IV 01/24/24 16:00 01/27/24 09:51 60 MG Rocuronium [place] 1000 mg/ Dextrose 250 ml @ 20.832 mls/ hr Q12H1M IV 01/24/24 17:30 01/27/24 00:07 10.416 MLS/HR Norepinephrine Bitartrate 250 ml @ 3.75 mls/hr Q24H IV 01/24/24 18:30 Vancomycin HCl 300 ml @ 200 mls/hr Q10H IV 01/26/24 13:00 01/27/24 09:49 200 MLS/HR Propofol 100 ml @ 5.046 mls/ hr [id number] IV 01/26/24 22:30 01/27/24 08:54 20.184 MLS/HR Furosemide 40 mg DAILY IV 01/27/24 10:00 01/27/24 09:50 40 MG Docusate Sodium 100 mg BIDP PRN GT 01/27/24 07:45 01/27/24 09:54 100 MG objective General Appearance: alert, no distress HEENT: EOMI, PERRLA, normal external inspect of ears, no icterus, no nasal drainage Neck: no carotid bruit, no jugular venous distention (JVD), no lymphadenopathy Chest: normal thorax Respiratory: clear to auscultation Cardiovascular: regular rate and rhythm, no diastolic murmur, no jugular venous distention (JVD), no rub, no systolic murmur Abdominal: soft, no hepatomegaly, no mass, no splenomegaly, no tenderness Genitourinary: grossly normal external Musculoskeletal: no joint tenderness, no swelling Extremities: normal pulses, no calf tenderness, no clubbing, no cyanosis, no edema Skin: no bruising, no jaundice, no rash Neurological: alert, No focal deficit laboratory and microbiology Laboratory Tests 01/27/24 03:49 01/26/24 03:28 Test 01/26/24 03:28 Range/Units Serum Glucose 185 H 74-106 mg/dL Problem List 1. Asthma with acute exacerbation Pulmonary consult, monitoring 2. Acute hypoxic respiratory failure requiring intubation Pulmonary Consult 3. Schizophrenia Monitoring 4. Autism Medication, monitoring 5. Elevated Troponin Cardiology Consult, monitoring 6. Cannabis Use Education Assessment/Plan Subjective: Patient remains on a paralytic and on the ventilator. Objective: Patient was admitted on January 19, 2024 for acute hypoxic respiratory failure due to acute asthma exacerbation. Most likely patient has underlying community- acquired pneumonia with sepsis. Patient was changed to a paralytic due to frequent desaturations. Patient is now tolerating the ventilator better and FiO2 was slowly decreasing. Plan: Continue antibiotics. Ventilator management per pulmonary. Monitor daily labs. Continue diuretics. Patient's GFR remains stable. Dietary Evaluation Review Comments: Current Jevity 1.2 @60ml/hr TF is meeting pt's need for protein at 60% for energy at 117% Continue monitor nutrition progress of nutrition support to meet 75% of his needs. Advance to a cardiac diet, texture as tolerated when medically feasible. Expected Outcomes/Goals: gradual weight loss Plan discussed with: Patient, Other [employer] Jan 27, 2024 09:56
[2024-01-27 20:33] LABS: Gastric Occult Blood Positive (Negative)
--- NOTE | 2024-01-27 21:16 | DVHPN2 ---
Progress Note - Dictate Date Seen: Jan 27, 2024 Medical Necessity Reason Pt with a Central, PICC or Fol: Yes The following are medically ne: Reyes Catheter Reason for reyes catheter: Strict I&O Subjective Patient seen and examined at bedside. Sedated, intubated on mechanical ventilator. Overnight events reviewed. vital signs Vital Sign Date Time Temp Pulse Resp B/P (MAP) Pulse Ox O2 Delivery O2 Flow Rate FiO2 01/27/24 20:30 62 28 120/53 (75) 93 35 01/27/24 20:00 Mechanical Ventilator+ 01/27/24 19:02 100.0 212.0 Total Intake and Output 01/26/24 01/26/24 01/27/24 15:00 23:00 07:00 Intake Total 1129.538 ml 1479.694 ml 1554.800 ml Output Total 2200 ml 1200 ml Balance 1129.538 ml -720.306 ml 354.800 ml medications Current Medications Medications Dose Ordered Sig/Reji Route Start Time Stop Time Status Last Admin Dose Admin Ondansetron HCl 4 mg Q4HP PRN IV 01/19/24 20:15 Pantoprazole Sodium 40 mg DAILY IV 01/20/24 10:00 01/27/24 09:50 40 MG Nitroglycerin 0.4 mg Q5MINP PRN SL 01/19/24 20:15 Morphine Sulfate 2 mg Q30M PRN IV 01/19/24 20:15 Midazolam HCl 50 ml @ 1 mls/hr Q24H IV 01/19/24 21:30 01/27/24 18:54 15 MLS/HR Fentanyl Citrate 250 ml @ 5 mls/hr Q24H IV 01/19/24 21:45 01/27/24 18:44 35 MLS/HR Aspirin 81 mg DAILY NG 01/20/24 10:00 01/27/24 09:53 81 MG Atorvastatin Calcium 40 mg HS PO 01/20/24 22:00 01/26/24 21:34 40 MG Enoxaparin Sodium 150 mg Q12HR SC 01/20/24 10:00 01/27/24 09:53 150 MG Latanoprost 1 drop QPM EACHEYE 01/20/24 18:00 01/27/24 18:53 1 DROP Patient Own Medication 400 mg MONTHLY IM 01/20/24 11:30 Lisinopril 20 mg DAILY PO 01/20/24 11:30 01/24/24 10:05 20 MG Nitroglycerin 250 ml @ 1.5 mls/hr Q24H IV 01/20/24 20:30 Albuterol 2.5 mg Q4HR NEB 01/20/24 22:00 01/27/24 17:48 2.5 MG Ipratropium [place] 0.5 mg Q4HR NEB 01/20/24 22:00 01/27/24 17:48 0.5 MG Doxycycline Hyclate 250 ml @ 125 mls/hr Q12H IV 01/21/24 14:30 01/27/24 14:48 125 MLS/HR Enteral Nutritional Formula 1,000 ml 60ML/HR GT 01/22/24 14:00 01/24/24 05:35 1,000 ML Purified Water 100 ml Q6HR GT 01/22/24 18:00 01/27/24 18:00 100 ML Vancomycin HCl 0 ml @ 0 mls/hr UD IV 01/23/24 20:45 Methylprednisolone Sodium Succinate 60 mg Q4HR IV 01/24/24 16:00 01/27/24 18:53 60 MG Rocuronium [place] 1000 mg/ Dextrose 250 ml @ 20.832 mls/ hr Q12H1M IV 01/24/24 17:30 01/27/24 00:07 10.416 MLS/HR Norepinephrine Bitartrate 250 ml @ 3.75 mls/hr Q24H IV 01/24/24 18:30 Vancomycin HCl 300 ml @ 200 mls/hr Q10H IV 01/26/24 13:00 01/27/24 18:53 200 MLS/HR Propofol 100 ml @ 5.046 mls/ hr [id number] IV 01/26/24 22:30 01/27/24 18:43 20.184 MLS/HR Furosemide 40 mg DAILY IV 01/27/24 10:00 01/27/24 09:50 40 MG Docusate Sodium 100 mg BIDP PRN GT 01/27/24 07:45 01/27/24 09:54 100 MG objective Gen.: Patient lying in bed in medical ICU. Sedated, intubated on mechanical ventilator. Head: Normocephalic, atraumatic. Eyes: PERRLA. Ears: Normal external anatomy. Throat: Endotracheal tube and orogastric tube in place. Neck: Supple, trachea midline. Chest: Transmitted breath sounds bilaterally. Decreased air entry bilaterally. No wheezing. Bibasilar crackles. Cardiovascular: Positive S1, positive S2. Regular rate and rhythm. Abdomen: Positive bowel sounds in all 4 quadrants. Soft, nontender, nondistended. : Reyes in place. Normal external genitalia. Rectal: Deferred. Skin: Warm, dry. Intact. Extremities: 2+ radial pulses bilaterally. No lower extremity edema. Neuro: Sedated. laboratory and microbiology Laboratory Tests 01/27/24 03:49 01/26/24 03:28 Test 01/26/24 03:28 Range/Units Serum Glucose 185 H 74-106 mg/dL Assessment/Plan Impression: Acute hypoxic respiratory failure On mechanical ventilator Acute exacerbation of asthma Elevated Troponin Schizophrenia Autism Cannabinoid Use Morbid obesity BMI 60.5 Pulmonary edema Events: Remains on vent support On AC mode with RR 28, VT 500, PEEP 12, FiO2 55% Reduce FiO2 to 50% On paralytic - rocuronium. Sedated on Propofol, Fentanyl Taper FiO2 as tolerated Improved O2 requirements with paralytic. ABG reviewed, compensated. CXR notable for multifocal airspace disease. No effusion or pneumothorax. Continue bronchodilators IV steroids Continue antibiotics - vancomycin Tube feeds for nutritional support Diurese w/ Lasix QD Monitor renal function Monitor electrolytes. Supplement as necessary. Monitor ins and outs. Labs and imaging reviewed. Rest of plan as noted below. Plan: s/p intubation on mechanical ventilator. On AC mode with RR 28, VT 500, PEEP 12, FiO2 55% --> 50% Titrate FIO2 to keep O2 saturation above 90%. VAP bundle. Daily ABG and CXR while intubated Sedate for ventilator synchrony Pt does not tolerate turns. Derecruitment. Turn carefully. Elevated Troponin - Cardiology recs appreciated. Continue bronchodilators Antibiotics. F/u cultures. Start pressors if necessary to maintain a mean arterial blood pressure greater than 65 mmHg. Monitor renal function Monitor electrolytes. Supplement as necessary. Monitor ins and outs. Diet and lifestyle modifications for weight reduction Morbid obesity - complicates all care GI prophylaxis. DVT prophylaxis. Prognosis: Poor given patient's multiple co-morbidities. Condition: Critical Rest of plan per hospitalist and other consultants. A total of 35 minutes of critical care time was spent reviewing the patient record, examining the patient, making a diagnostic and therapeutic plan, discussing this plan with the medical personnel, following up on diagnostic studies and following the patient for clinical stability excluding any and all procedures. At least 50% of this time was spent in direct, [id number] contact. Thank you Irma Velasquez NP, for allowing me to participate in this patient's care. Further recommendations will depend on the patient's clinical course. Please do not hesitate to contact me if you have any questions or concerns. This medical document was created using an electronic medical record system with [employer] dictation system. Although these documentations are being carefully reviewed, there may still be some phonetic and typographical changes. The errors are purely typographical, due to imperfection on the software program, and do not reflect any compromise in the patient's medical care. Dietary Evaluation Review Comments: Current Jevity 1.2 @60ml/hr TF is meeting pt's need for protein at 60% for energy at 117% Continue monitor nutrition progress of nutrition support to meet 75% of his needs. Advance to a cardiac diet, texture as tolerated when medically feasible. Expected Outcomes/Goals: gradual weight loss Plan discussed with: Other (SAIGE Narvaez) Critical Care Time(min): 35 VERÓNICA MERCER MD Jan 27, 2024 21:16
[2024-01-28] VITALS (115 sets, daily range): BP systolic 94–154; BP diastolic 25–84; PULSE 41–121; RESP 8–47; TEMP 98.1–100.1; O2SAT 86–100
[2024-01-28] MEDS: VANCOMYCIN 1.5GM/300ML 300 ML IV SCH (01:33)
[2024-01-28] MEDS ORDERED: VANCOMYCIN 1.5GM/300ML 300 ML IV SCH (02:00)
[2024-01-28 03:54] LABS: Albumin 3.4 g/dL (3.2-4.8); Alkaline Phosphatase 57 U/L (46-116); Anion Gap 4 (5-15); Aspartate Aminotransferase 22 U/L (13-40); Blood Urea Nitrogen 19 mg/dL (9-23); Chloride 104 mmol/L (98-107); Sodium 142 mmol/L (136-145)
[2024-01-28 04:18] LABS: Basophils # (auto) 0 10 ^3/uL (0-0.2); Eosinophils # (auto) 0 10 ^3/uL (0-0.8); Monocytes # (auto) 0.5 10 ^3/uL (0-1.3); Nucleated Red Blood Cells % 0.1 %
[2024-01-28 04:21] LABS: Hematocrit 39.1 % (41.0-53.0); Lymphocytes # (auto) 0.3 10 ^3/uL (0.4-5.4); Mean Corpuscular Hemoglobin 22.5 pg (28.0-32.0); Mean Corpuscular Hgb Conc. 30.8 g/dL (32.0-36.0); Monocytes % (auto) 3.8 % (0.0-12.0); Neutrophils % (auto) 94.2 % (37.0-80.0); Platelet Count (auto) 203 10^3/uL (140-450); Red Blood Cells 5.35 10^6/uL (4.5-5.90); Red Cell Distribution Width 18.6 % (11.8-14.3); White Blood Cell 13.8 10^3/uL (4.4-10.8)
[2024-01-28 04:29] LABS: Alanine Aminotransferase 66 U/L (7-40); Bilirubin, Total 1.6 mg/dL (0.2-1.0); Calcium 8.7 mg/dL (8.7-10.4); Carbon Dioxide 34 mmol/L (20-31); Glucose 185 mg/dL (74-106); Total Protein 5.7 g/dL (5.7-8.2)
--- NOTE | 2024-01-28 04:30 | DVH ---
CHEST RADIOGRAPH Indication: PT INTUBATED Technique: Single frontal view of the chest was obtained Comparison: XY CHEST XRAY 1 VIEW on DOS: 01/26/24 FINDINGS: Lines and Tubes: The endotracheal tube terminates 4.8 cm above the zbigniew. The enteric tube courses b elow the left hemidiaphragm and the tip extends outside the field of view. Left central venous cathet er terminates in the superior vena cava similar to prior study. Lungs: Bilateral airspace opacities are unchanged. Pleura: No effusion. No pneumothorax. Cardiomediastinal contours: Stable. Bones: No acute osseous abnormality. IMPRESSION: 1. Stable position of the support lines and tubes. 2. No significant change in diffuse bilateral airspace opacities.
[2024-01-28 06:16] LABS: Base Excess 9.5 mmol/L (-2.0-3.0)
--- NOTE | 2024-01-28 06:24 | DVHPN2 ---
Progress Note - Dictate Date Seen: Jan 28, 2024 Medical Necessity Reason Pt with a Central, PICC or Fol: Yes The following are medically ne: Reyes Catheter Reason for reyes catheter: Strict I&O vital signs Vital Sign Date Time Temp Pulse Resp B/P (MAP) Pulse Ox O2 Delivery O2 Flow Rate FiO2 01/28/24 06:04 56 28 117/54 (75) 95 30 01/28/24 06:00 Mechanical Ventilator+ 01/28/24 06:00 99.1 210.4 Total Intake and Output 01/27/24 01/27/24 01/28/24 15:00 23:00 07:00 Intake Total 1182.716 ml 869.930 ml 1454.476 ml Output Total 1950 ml 925 ml 800 ml Balance -767.284 ml -55.070 ml 654.476 ml medications Current Medications Medications Dose Ordered Sig/Reji Route Start Time Stop Time Status Last Admin Dose Admin Ondansetron HCl 4 mg Q4HP PRN IV 01/19/24 20:15 Pantoprazole Sodium 40 mg DAILY IV 01/20/24 10:00 01/27/24 09:50 40 MG Nitroglycerin 0.4 mg Q5MINP PRN SL 01/19/24 20:15 Morphine Sulfate 2 mg Q30M PRN IV 01/19/24 20:15 Midazolam HCl 50 ml @ 1 mls/hr Q24H IV 01/19/24 21:30 01/28/24 04:49 15 MLS/HR Fentanyl Citrate 250 ml @ 5 mls/hr Q24H IV 01/19/24 21:45 01/28/24 01:30 35 MLS/HR Aspirin 81 mg DAILY NG 01/20/24 10:00 01/27/24 09:53 81 MG Atorvastatin Calcium 40 mg HS PO 01/20/24 22:00 01/27/24 21:20 40 MG Enoxaparin Sodium 150 mg Q12HR SC 01/20/24 10:00 01/27/24 21:21 150 MG Latanoprost 1 drop QPM EACHEYE 01/20/24 18:00 01/27/24 18:53 1 DROP Patient Own Medication 400 mg MONTHLY IM 01/20/24 11:30 Lisinopril 20 mg DAILY PO 01/20/24 11:30 01/24/24 10:05 20 MG Nitroglycerin 250 ml @ 1.5 mls/hr Q24H IV 01/20/24 20:30 Albuterol 2.5 mg Q4HR NEB 01/20/24 22:00 01/28/24 06:04 2.5 MG Ipratropium [place] 0.5 mg Q4HR NEB 01/20/24 22:00 01/28/24 06:04 0.5 MG Doxycycline Hyclate 250 ml @ 125 mls/hr Q12H IV 01/21/24 14:30 01/28/24 03:44 125 MLS/HR Enteral Nutritional Formula 1,000 ml 60ML/HR GT 01/22/24 14:00 01/28/24 04:54 1,000 ML Purified Water 100 ml Q6HR GT 01/22/24 18:00 01/28/24 05:53 100 ML Vancomycin HCl 0 ml @ 0 mls/hr UD IV 01/23/24 20:45 Methylprednisolone Sodium Succinate 60 mg Q4HR IV 01/24/24 16:00 01/28/24 05:57 60 MG Rocuronium [place] 1000 mg/ Dextrose 250 ml @ 20.832 mls/ hr Q12H1M IV 01/24/24 17:30 01/27/24 21:49 12.499 MLS/HR Norepinephrine Bitartrate 250 ml @ 3.75 mls/hr Q24H IV 01/24/24 18:30 Propofol 100 ml @ 5.046 mls/ hr [id number] IV 01/26/24 22:30 01/28/24 01:52 30.276 MLS/HR Furosemide 40 mg DAILY IV 01/27/24 10:00 01/27/24 09:50 40 MG Docusate Sodium 100 mg BIDP PRN GT 01/27/24 07:45 01/27/24 09:54 100 MG Vancomycin HCl 300 ml @ 200 mls/hr Q8H IV 01/28/24 02:00 Cancel Vancomycin HCl 300 ml @ 200 mls/hr Q8H IV 01/28/24 02:00 01/28/24 01:33 200 MLS/HR laboratory and microbiology Laboratory Tests 01/28/24 03:23 Test 01/28/24 03:23 Range/Units Serum Glucose 185 H 74-106 mg/dL Assessment/Plan Patient is 28 year old morbidly obese male who presented to ED with shortness of breath. He has been intubated for respiratory failure and in on vent. support. Information was obtained by reviewing the chart and communicating with staff. Cardiology is involved for cardiac aspects of care. There is no report of chest pain prior to presentation. Reportedly, patient has been intubated for usp previously for Asthma in other institution. Intubated and on vent support. Morbidly obese. Does have right sided subclavian access. No JVD. Mucosa is pink and wet. No goiter. Scattered rhonchi is heard. Cardiac: RR, no thrill, no gallop. Abdomen is soft, obese and distended. BS is +. Ext reveal 2+ edema bilaterally. DP is 2+ bilateral PMH reportedly includes Morbid obesity, Asthma (with previous intubations), Autism, Schizophrenia and ANNETTE. Smokes Marijuana and drinks alcohol WBC: 11.6 to 11.2 to 14.2 to 12.2 to 13.3 to 16.4 to 17.5 to 15.3 to 13.8 D-dimer: 0.43 (wnl) Creat: 0.73 - 0.70 - 0.67 - 0.76 - 0.71 - 0.70 - 0.69 - 0.59 - 0.60 - 0.52 - 0.50 K: 4.1 - 4.3 - 4.1 - 4.2 - 4.0 - 4.1 - 4.1 - 3.9 - 4.0 BNP: 561.97 - 173.31 Trop (high sensitive): 61 - 62 - 131 - 132 - 91 - 82 TSH: 0.48 Urine toxicology was positive for Cannabinoids and Benzodiazpin Chest xry revealed: FINDINGS: Lines and Tubes: None Lungs: Obscuration of the left hemidiaphragm Diffuse interstitial prominence. No pneumothorax. Cardiomediastinal contours: Moderate cardiomegaly Bones: No acute osseous abnormality. IMPRESSION: Moderate cardiomegaly with findings suggestive of congestive heart failure. Possible left-sided pleural effusion. Repeat chest xry revealed: Endotracheal tube projects terminating 1.8 cm superior to the zbigniew. Enteric tube is projecting below the GE junction without visualization of the port or tip. Low lung volumes with bronchovascular crowding. Possible small left-sided pleural effusion and/or atelectasis. No pneumothorax. Repeat chest xry revealed: Cardiomediastinal silhouette is enlarged. There is increased pulmonary vascular congestion, similar prior examination. Obscuration of the left hemidiaphragm may be on the basis of technique versus small pleural effusion. No discrete pneumothorax. Endotracheal tube and enteric tube are redemonstrated. Left IJ catheter tip is likely at the region of the brachiocephalic vein. Repeat chest xry revealed: FINDINGS: Cardiomediastinal silhouette is enlarged. There is increased pulmonary vascular congestion, similar prior examination. Obscuration of the left hemidiaphragm may be on the basis of technique versus small pleural effusion. No discrete pneumothorax. Endotracheal tube and enteric tube are redemonstrated. Left IJ catheter tip is likely at the region of the brachiocephalic vein. IMPRESSION: NO INTERVAL CHANGE. Repeat chest xry revealed: IMPRESSION: Improving pulmonary edema compared to prior exam. Repeat chest xry revealed: IMPRESSION: stable pulmonary edema compared to prior exam. Repeat chest xry revealed: IMPRESSION: Lines and tubes in satisfactory position. No significant interval change. Repeat chest xry revealed: IMPRESSION: Lines and tubes in satisfactory position. No significant interval change. Repeat chest xry revealed: IMPRESSION: Lines and tubes in satisfactory position. No significant interval change. Repeat chest xry: IMPRESSION: 1. Stable position of the support lines and tubes. 2. No significant change in diffuse bilateral airspace opacities. Venous duplex of lower ext revealed: Impression: 1. No right or left femoropopliteal venous thrombosis. 2. Left common femoral vein and proximal superficial femoral vein are not visible and therefore thrombus can not be excluded in those areas. EKG revealed: Sinus tachycardia with non-specific STT changes Tele reveals Sinus rhythm Echocardiogram revealed: Technically limited study secondary to poor acoustic windows. Left ventricle: Left ventricle was normal-sized with normal systolic function. LVEF was 60-65%. There was no gross wall motion abnormality observed. Right ventricle was not well visualized but it was dilated. Left atrium was normal-sized. Right atrium was not well visualized. Aortic valve was trileaflet and normal. There was no aortic insufficiency/stenosis. There was trivial mitral and tricuspid regurgitation. There was mild pulmonary valve insufficiency. As there was no good tricuspid regurgitation jet, right ventricular systolic pressure could not be estimated. There was no pericardial effusion. Patient is 28 year old male with history of morbid obesity who presented with respiratory failure. Does have history of Asthma and reportedly has been intubated for it before. Trop has been mildly elevated. ACS is less likely and increase in troponin most likely represents demand physiology. Still, component of type 1 physiology cannot be completely ruled out. Echo revealed dilated RV. As there was no good TR jet, RVSP could not be estimated. Pulmonary Hypertension cannot be ruled out. Pulmonary on board. On sedation Acute respiratory failure Asthma Asthma exacerbation Morbid obesity Abnormal trop Questionable heart failure, acute Cardiac suggestion for management: Manage in ICU IV diuresis Follow up electrolytes and kidney function test and correct abnormalities. Keep potassium above 4 and magnesium above 2 Lovenox ASA Follow up vital signs and correct hyper/hypotension. If needed add pressure support to keep MAP above 65 mmHg Pulmonary follow up Further evaluation and management depends on the above and clinical course A total of 75 minutes was spent reviewing the patient record, examining the patient, making a diagnostic and therapeutic plan, discussing this plan with medical personnel, following up on diagnostic studies and following the patient for clinical stability excluding any and all procedures. At least 50% of this time was spent in direct, [id number] contact. Thank you for allowing me to participate in this patient's care. Further recommendations will depend on patient's clinical course. Please do not hesitate to contact me if you have any questions or concerns. This medical document was created using electronic medical record system with [employer] computerized dictation system. Although this document has been carefully reviewed, there may still be some phonetic and typographical errors. These areas are purely typographical due to the imperfection of the software programs, and do not reflect any compromise in the patient's medical care. Dietary Evaluation Review Comments: Current Jevity 1.2 @60ml/hr TF is meeting pt's need for protein at 60% for energy at 117% Continue monitor nutrition progress of nutrition support to meet 75% of his needs. Advance to a cardiac diet, texture as tolerated when medically feasible. Expected Outcomes/Goals: gradual weight loss Plan discussed with: Other (nurse) PARRIS MCKINNON MD Jan 28, 2024 06:24
--- NOTE | 2024-01-28 13:02 | DVHPN2 ---
Progress Note - Dictate Date Seen: Jan 28, 2024 Medical Necessity Reason Pt with a Central, PICC or Fol: Yes The following are medically ne: Reyes Catheter Reason for reyes catheter: Strict I&O vital signs Vital Sign Date Time Temp Pulse Resp B/P (MAP) Pulse Ox O2 Delivery O2 Flow Rate FiO2 01/28/24 11:36 58 28 135/66 (89) 89 30 01/28/24 10:18 99.0 210.2 01/28/24 08:00 Mechanical Ventilator+ Total Intake and Output 01/27/24 01/27/24 01/28/24 15:00 23:00 07:00 Intake Total 1182.716 ml 869.930 ml 1454.476 ml Output Total 1950 ml 925 ml 800 ml Balance -767.284 ml -55.070 ml 654.476 ml medications Current Medications Medications Dose Ordered Sig/Reji Route Start Time Stop Time Status Last Admin Dose Admin Ondansetron HCl 4 mg Q4HP PRN IV 01/19/24 20:15 Pantoprazole Sodium 40 mg DAILY IV 01/20/24 10:00 01/28/24 09:58 40 MG Nitroglycerin 0.4 mg Q5MINP PRN SL 01/19/24 20:15 Morphine Sulfate 2 mg Q30M PRN IV 01/19/24 20:15 Midazolam HCl 50 ml @ 1 mls/hr Q24H IV 01/19/24 21:30 01/28/24 10:18 15 MLS/HR Fentanyl Citrate 250 ml @ 5 mls/hr Q24H IV 01/19/24 21:45 01/28/24 07:43 35 MLS/HR Aspirin 81 mg DAILY NG 01/20/24 10:00 01/28/24 10:01 81 MG Atorvastatin Calcium 40 mg HS PO 01/20/24 22:00 01/27/24 21:20 40 MG Enoxaparin Sodium 150 mg Q12HR SC 01/20/24 10:00 01/28/24 10:03 150 MG Latanoprost 1 drop QPM EACHEYE 01/20/24 18:00 01/27/24 18:53 1 DROP Patient Own Medication 400 mg MONTHLY IM 01/20/24 11:30 Lisinopril 20 mg DAILY PO 01/20/24 11:30 01/28/24 10:01 20 MG Nitroglycerin 250 ml @ 1.5 mls/hr Q24H IV 01/20/24 20:30 Albuterol 2.5 mg Q4HR NEB 01/20/24 22:00 01/28/24 10:07 2.5 MG Ipratropium [place] 0.5 mg Q4HR NEB 01/20/24 22:00 01/28/24 10:07 0.5 MG Doxycycline Hyclate 250 ml @ 125 mls/hr Q12H IV 01/21/24 14:30 01/28/24 03:44 125 MLS/HR Enteral Nutritional Formula 1,000 ml 60ML/HR GT 01/22/24 14:00 01/28/24 04:54 1,000 ML Purified Water 100 ml Q6HR GT 01/22/24 18:00 01/28/24 05:53 100 ML Vancomycin HCl 0 ml @ 0 mls/hr UD IV 01/23/24 20:45 Methylprednisolone Sodium Succinate 60 mg Q4HR IV 01/24/24 16:00 01/28/24 10:00 60 MG Rocuronium [place] 1000 mg/ Dextrose 250 ml @ 20.832 mls/ hr Q12H1M IV 01/24/24 17:30 01/28/24 11:25 12.499 MLS/HR Norepinephrine Bitartrate 250 ml @ 3.75 mls/hr Q24H IV 01/24/24 18:30 Propofol 100 ml @ 5.046 mls/ hr [id number] IV 01/26/24 22:30 01/28/24 07:20 15.138 MLS/HR Furosemide 40 mg DAILY IV 01/27/24 10:00 01/28/24 09:58 40 MG Docusate Sodium 100 mg BIDP PRN GT 01/27/24 07:45 01/27/24 09:54 100 MG Vancomycin HCl 300 ml @ 200 mls/hr Q8H IV 01/28/24 02:00 Cancel Vancomycin HCl 300 ml @ 200 mls/hr Q8H IV 01/28/24 02:00 01/28/24 10:54 200 MLS/HR objective General Appearance: alert, no distress HEENT: EOMI, PERRLA, normal external inspect of ears, no icterus, no nasal drainage Neck: no carotid bruit, no jugular venous distention (JVD), no lymphadenopathy Chest: normal thorax Respiratory: clear to auscultation Cardiovascular: regular rate and rhythm, no diastolic murmur, no jugular venous distention (JVD), no rub, no systolic murmur Abdominal: soft, no hepatomegaly, no mass, no splenomegaly, no tenderness Genitourinary: grossly normal external Musculoskeletal: no joint tenderness, no swelling Extremities: normal pulses, no calf tenderness, no clubbing, no cyanosis, no edema Skin: no bruising, no jaundice, no rash Neurological: alert, No focal deficit laboratory and microbiology Laboratory Tests 01/28/24 03:23 Test 01/28/24 03:23 Range/Units Serum Glucose 185 H 74-106 mg/dL Problem List 1. Asthma with acute exacerbation Pulmonary consult, monitoring 2. Acute hypoxic respiratory failure requiring intubation Pulmonary Consult 3. Schizophrenia Monitoring 4. Autism Medication, monitoring 5. Elevated Troponin Cardiology Consult, monitoring 6. Cannabis Use Education Assessment/Plan Subjective: Patient remains on the ventilator on a paralytic. Objective: Patient was emergently intubated on January 19, 2024, for acute hypoxic respiratory failure due to asthma exacerbation and likely underlying pneumonia. FiO2 is currently 40%, and PEEP was increased to 10 today. Stool was positive for occult blood, though hemoglobin and platelet counts are stable. Patient experienced bleeding after NG tube insertion but has had no further episodes. Plan: Continue current treatment. Manage ventilator settings per pulmonary recommendations. Continue IV antibiotics. Discontinue Vancomycin and initiate Zyvox. Dietary Evaluation Review Comments: Current Jevity 1.2 @60ml/hr TF is meeting pt's need for protein at 60% for energy at 117% Continue monitor nutrition progress of nutrition support to meet 75% of his needs. Advance to a cardiac diet, texture as tolerated when medically feasible. Expected Outcomes/Goals: gradual weight loss Plan discussed with: Patient, Other [employer] Jan 28, 2024 13:02
[2024-01-28] MEDS: METOCLOPRAMIDE HCL 5MG/ml INJ 2ml VIAL IV SCH (14:33)
[2024-01-28] MEDS: DOCUSATE ORAL LIQUID 100 MG/10 ML UD GT SCH (21:22)
[2024-01-28] MEDS: LINEZOLID 600MG/300ML 300 ML IV SCH (21:22)
--- NOTE | 2024-01-28 22:52 | DVHPN2 ---
Progress Note - Dictate Date Seen: Jan 28, 2024 Medical Necessity Reason Pt with a Central, PICC or Fol: Yes The following are medically ne: Reyes Catheter Reason for reyes catheter: Strict I&O Subjective Patient seen and examined at bedside. Sedated, intubated on mechanical ventilator. Overnight events reviewed. vital signs Vital Sign Date Time Temp Pulse Resp B/P (MAP) Pulse Ox O2 Delivery O2 Flow Rate FiO2 01/28/24 22:07 142/73 01/28/24 22:03 99.0 68 27 91 210.2 01/28/24 22:00 40 01/28/24 22:00 Mechanical Ventilator+ Total Intake and Output 01/27/24 01/27/24 01/28/24 15:00 23:00 07:00 Intake Total 1182.716 ml 869.930 ml 1532.113 ml Output Total 1950 ml 925 ml 800 ml Balance -767.284 ml -55.070 ml 732.113 ml medications Current Medications Medications Dose Ordered Sig/Reji Route Start Time Stop Time Status Last Admin Dose Admin Ondansetron HCl 4 mg Q4HP PRN IV 01/19/24 20:15 Pantoprazole Sodium 40 mg DAILY IV 01/20/24 10:00 01/28/24 09:58 40 MG Nitroglycerin 0.4 mg Q5MINP PRN SL 01/19/24 20:15 Morphine Sulfate 2 mg Q30M PRN IV 01/19/24 20:15 Midazolam HCl 50 ml @ 1 mls/hr Q24H IV 01/19/24 21:30 01/28/24 22:07 15 MLS/HR Fentanyl Citrate 250 ml @ 5 mls/hr Q24H IV 01/19/24 21:45 01/28/24 20:59 35 MLS/HR Aspirin 81 mg DAILY NG 01/20/24 10:00 01/28/24 10:01 81 MG Atorvastatin Calcium 40 mg HS PO 01/20/24 22:00 01/28/24 21:22 40 MG Enoxaparin Sodium 150 mg Q12HR SC 01/20/24 10:00 01/28/24 10:03 150 MG Latanoprost 1 drop QPM EACHEYE 01/20/24 18:00 01/28/24 17:44 1 DROP Patient Own Medication 400 mg MONTHLY IM 01/20/24 11:30 Lisinopril 20 mg DAILY PO 01/20/24 11:30 01/28/24 10:01 20 MG Nitroglycerin 250 ml @ 1.5 mls/hr Q24H IV 01/20/24 20:30 Albuterol 2.5 mg Q4HR NEB 01/20/24 22:00 01/28/24 22:00 2.5 MG Ipratropium [place] 0.5 mg Q4HR NEB 01/20/24 22:00 01/28/24 22:00 0.5 MG Doxycycline Hyclate 250 ml @ 125 mls/hr Q12H IV 01/21/24 14:30 01/28/24 14:12 125 MLS/HR Enteral Nutritional Formula 1,000 ml 60ML/HR GT 01/22/24 14:00 01/28/24 04:54 1,000 ML Purified Water 100 ml Q6HR GT 01/22/24 18:00 01/28/24 18:00 100 ML Methylprednisolone Sodium Succinate 60 mg Q4HR IV 01/24/24 16:00 01/28/24 21:23 60 MG Rocuronium [place] 1000 mg/ Dextrose 250 ml @ 20.832 mls/ hr Q12H1M IV 01/24/24 17:30 01/28/24 11:25 12.499 MLS/HR Norepinephrine Bitartrate 250 ml @ 3.75 mls/hr Q24H IV 01/24/24 18:30 Propofol 100 ml @ 5.046 mls/ hr [id number] IV 01/26/24 22:30 01/28/24 18:46 30.276 MLS/HR Furosemide 40 mg DAILY IV 01/27/24 10:00 01/28/24 09:58 40 MG Vancomycin HCl 300 ml @ 200 mls/hr Q8H IV 01/28/24 02:00 Cancel Linezolid 300 ml @ 150 mls/hr Q12HR IV 01/28/24 22:00 01/28/24 21:22 150 MLS/HR Metoclopramide HCl 10 mg Q8HR IV 01/28/24 14:00 01/28/24 21:23 10 MG Docusate Sodium 100 mg BID GT 01/28/24 22:00 01/28/24 21:22 100 MG objective Gen.: Patient lying in bed in medical ICU. Sedated, intubated on mechanical ventilator. Head: Normocephalic, atraumatic. Eyes: PERRLA. Ears: Normal external anatomy. Throat: Endotracheal tube and orogastric tube in place. Neck: Supple, trachea midline. Chest: Transmitted breath sounds bilaterally. Decreased air entry bilaterally. No wheezing. Bibasilar crackles. Cardiovascular: Positive S1, positive S2. Regular rate and rhythm. Abdomen: Positive bowel sounds in all 4 quadrants. Soft, nontender, nondistended. : Reyes in place. Normal external genitalia. Rectal: Deferred. Skin: Warm, dry. Intact. Extremities: 2+ radial pulses bilaterally. No lower extremity edema. Neuro: Sedated. laboratory and microbiology Laboratory Tests 01/28/24 03:23 Test 01/28/24 03:23 Range/Units Serum Glucose 185 H 74-106 mg/dL Assessment/Plan Impression: Acute hypoxic respiratory failure On mechanical ventilator Acute exacerbation of asthma Elevated Troponin Schizophrenia Autism Cannabinoid Use Morbid obesity BMI 60.5 Pulmonary edema Events: Remains on vent support On AC mode with RR 28, VT 500, PEEP 10, FiO2 30% (PEEP decreased to 10, FiO2 decreased to 30%) Improved FiO2 requirements. Taper off rocuronium. Sedated on Propofol, Versed, Fentanyl Off Levophed, hemodynamically stable. Taper FiO2 as tolerated Improved O2 requirements with paralytic. ABG reviewed, compensated. CXR notable for diffuse bilateral airspace opacities, unchanged. No effusion or pneumothorax. Continue bronchodilators IV steroids Continue antibiotics - vancomycin Tube feeds for nutritional support Diurese w/ Lasix QD Monitor renal function Monitor electrolytes. Supplement as necessary. Monitor ins and outs. Labs and imaging reviewed. Rest of plan as noted below. Plan: s/p intubation on mechanical ventilator. On AC mode with RR 28, VT 500, PEEP 10, FiO2 30% Titrate FIO2 to keep O2 saturation above 90%. VAP bundle. Daily ABG and CXR while intubated Sedate for ventilator synchrony Pt does not tolerate turns. Derecruitment. Turn carefully. Elevated Troponin - Cardiology recs appreciated. Continue bronchodilators Antibiotics. F/u cultures. Start pressors if necessary to maintain a mean arterial blood pressure greater than 65 mmHg. Monitor renal function Monitor electrolytes. Supplement as necessary. Monitor ins and outs. Diet and lifestyle modifications for weight reduction Morbid obesity - complicates all care GI prophylaxis. DVT prophylaxis. Prognosis: Poor given patient's multiple co-morbidities. Condition: Critical Rest of plan per hospitalist and other consultants. A total of 35 minutes of critical care time was spent reviewing the patient record, examining the patient, making a diagnostic and therapeutic plan, discussing this plan with the medical personnel, following up on diagnostic studies and following the patient for clinical stability excluding any and all procedures. At least 50% of this time was spent in direct, [id number] contact. Thank you Irma Velasquez NP, for allowing me to participate in this patient's care. Further recommendations will depend on the patient's clinical course. Please do not hesitate to contact me if you have any questions or concerns. This medical document was created using an electronic medical record system with [employer] dictation system. Although these documentations are being carefully reviewed, there may still be some phonetic and typographical changes. The errors are purely typographical, due to imperfection on the software program, and do not reflect any compromise in the patient's medical care. Dietary Evaluation Review Comments: Current Jevity 1.2 @60ml/hr TF is meeting pt's need for protein at 60% for energy at 117% Continue monitor nutrition progress of nutrition support to meet 75% of his needs. Advance to a cardiac diet, texture as tolerated when medically feasible. Expected Outcomes/Goals: gradual weight loss Plan discussed with: Other (SAIGE Magana) Critical Care Time(min): 35 VERÓNICA MERCER MD Jan 28, 2024 22:52
[2024-01-29] VITALS (118 sets, daily range): BP systolic 106–178; BP diastolic 45–103; PULSE 49–109; RESP 6–36; TEMP 98.4–99.3; O2SAT 90–100
[2024-01-29] MEDS: fentaNYL Drip 2500mCg/250mlNS 250 ML IV ONE (04:02)
[2024-01-29 04:19] LABS: Basophils # (auto) 0 10 ^3/uL (0-0.2); Basophils % (auto) 0.2 % (0.0-2.0); Eosinophils # (auto) 0 10 ^3/uL (0-0.8); Hemoglobin 12.1 g/dL (13.5-17.5); Lymphocytes # (auto) 0.2 10 ^3/uL (0.4-5.4); Mean Corpuscular Hgb Conc. 30.6 g/dL (32.0-36.0)
[2024-01-29] MEDS: fentaNYL Drip 2500mCg/250mlNS 250 ML IV SCH (04:21)
[2024-01-29 04:22] LABS: Hematocrit 39.6 % (41.0-53.0); Lymphocytes % (auto) 1.5 % (10.0-50.0); Mean Corpuscular Hemoglobin 22.2 pg (28.0-32.0); Mean Corpuscular Volume 72.4 fL (80.0-100.0); Monocytes # (auto) 0.9 10 ^3/uL (0-1.3); Monocytes % (auto) 5.5 % (0.0-12.0); Neutrophils # (auto) 14.5 10 ^3/uL (1.6-8.6); Neutrophils % (auto) 92.8 % (37.0-80.0); Platelet Count (auto) 204 10^3/uL (140-450); Red Blood Cells 5.47 10^6/uL (4.5-5.90); Red Cell Distribution Width 18.9 % (11.8-14.3); White Blood Cell 15.7 10^3/uL (4.4-10.8)
[2024-01-29 04:40] LABS: Alkaline Phosphatase 81 U/L (46-116); Anion Gap 4 (5-15); BUN/Creatinine Ratio 40.4 (10.0-20.0); Blood Urea Nitrogen 19 mg/dL (9-23); Chloride 103 mmol/L (98-107); Potassium 3.8 mmol/L (3.5-5.1); Sodium 140 mmol/L (136-145)
[2024-01-29 04:41] LABS: Albumin 3.3 g/dL (3.2-4.8)
[2024-01-29 04:43] LABS: Alanine Aminotransferase 122 U/L (7-40); Aspartate Aminotransferase 57 U/L (13-40); Bilirubin, Total 1.8 mg/dL (0.2-1.0); Calcium 8.5 mg/dL (8.7-10.4); Carbon Dioxide 33 mmol/L (20-31); Glucose 217 mg/dL (74-106); Total Protein 5.5 g/dL (5.7-8.2)
--- NOTE | 2024-01-29 04:56 | DVH ---
CHEST RADIOGRAPH Indication: PATIENT INTUBATED Technique: Single frontal view of the chest was obtained Comparison: XY CHEST PORTABLE on DOS: 01/28/24 FINDINGS: Lines and Tubes: The endotracheal tube terminates 6.4 cm above the zbigniew. Left central venous cathet er terminates in the superior vena cava. The enteric tube courses below the left hemidiaphragm and th e tip extends outside the field of view. Lungs: Bilateral airspace disease is unchanged. Pleura: No effusion. No pneumothorax. Cardiomediastinal contours: Stable. Bones: No acute osseous abnormality. IMPRESSION: 1. Endotracheal tube terminates 6.4 symbol the zbigniew. 2. Bilateral airspace disease unchanged.
[2024-01-29 06:54] LABS: Base Excess 7.3 mmol/L (-2.0-3.0)
--- NOTE | 2024-01-29 07:54 | DVHPN2 ---
Progress Note - Dictate Date Seen: Jan 29, 2024 Medical Necessity Reason Pt with a Central, PICC or Fol: Yes The following are medically ne: Reyes Catheter Reason for reyes catheter: Strict I&O vital signs Vital Sign Date Time Temp Pulse Resp B/P (MAP) Pulse Ox O2 Delivery O2 Flow Rate FiO2 01/29/24 06:54 118/59 01/29/24 06:49 98.8 49 25 99 209.8 01/29/24 06:41 40 01/29/24 06:00 Mechanical Ventilator+ Total Intake and Output 01/28/24 01/28/24 01/29/24 15:00 23:00 07:00 Intake Total 705.728 ml 1242.661 ml 1475.864 ml Output Total 2150 ml 375 ml 1025 ml Balance -1444.272 ml 867.661 ml 450.864 ml medications Current Medications Medications Dose Ordered Sig/Reji Route Start Time Stop Time Status Last Admin Dose Admin Ondansetron HCl 4 mg Q4HP PRN IV 01/19/24 20:15 Pantoprazole Sodium 40 mg DAILY IV 01/20/24 10:00 01/28/24 09:58 40 MG Nitroglycerin 0.4 mg Q5MINP PRN SL 01/19/24 20:15 Midazolam HCl 50 ml @ 1 mls/hr Q24H IV 01/19/24 21:30 01/29/24 06:54 15 MLS/HR Aspirin 81 mg DAILY NG 01/20/24 10:00 01/28/24 10:01 81 MG Atorvastatin Calcium 40 mg HS PO 01/20/24 22:00 01/28/24 21:22 40 MG Enoxaparin Sodium 150 mg Q12HR SC 01/20/24 10:00 01/28/24 10:03 150 MG Latanoprost 1 drop QPM EACHEYE 01/20/24 18:00 01/28/24 17:44 1 DROP Patient Own Medication 400 mg MONTHLY IM 01/20/24 11:30 Lisinopril 20 mg DAILY PO 01/20/24 11:30 01/28/24 10:01 20 MG Nitroglycerin 250 ml @ 1.5 mls/hr Q24H IV 01/20/24 20:30 Albuterol 2.5 mg Q4HR NEB 01/20/24 22:00 01/29/24 06:41 2.5 MG Ipratropium [place] 0.5 mg Q4HR NEB 01/20/24 22:00 01/29/24 06:41 0.5 MG Doxycycline Hyclate 250 ml @ 125 mls/hr Q12H IV 01/21/24 14:30 01/29/24 01:56 125 MLS/HR Enteral Nutritional Formula 1,000 ml 60ML/HR GT 01/22/24 14:00 01/29/24 03:25 1,000 ML Purified Water 100 ml Q6HR GT 01/22/24 18:00 01/29/24 05:32 100 ML Methylprednisolone Sodium Succinate 60 mg Q4HR IV 01/24/24 16:00 01/29/24 05:33 60 MG Rocuronium [place] 1000 mg/ Dextrose 250 ml @ 20.832 mls/ hr Q12H1M IV 01/24/24 17:30 01/29/24 05:04 14.582 MLS/HR Norepinephrine Bitartrate 250 ml @ 3.75 mls/hr Q24H IV 01/24/24 18:30 Propofol 100 ml @ 5.046 mls/ hr [id number] IV 01/26/24 22:30 01/29/24 06:28 20.184 MLS/HR Furosemide 40 mg DAILY IV 01/27/24 10:00 01/28/24 09:58 40 MG Vancomycin HCl 300 ml @ 200 mls/hr Q8H IV 01/28/24 02:00 Cancel Linezolid 300 ml @ 150 mls/hr Q12HR IV 01/28/24 22:00 01/28/24 21:22 150 MLS/HR Metoclopramide HCl 10 mg Q8HR IV 01/28/24 14:00 01/29/24 05:33 10 MG Docusate Sodium 100 mg BID GT 01/28/24 22:00 01/28/24 21:22 100 MG Fentanyl Citrate 250 ml @ 2.5 mls/hr Q24H IV 01/29/24 04:00 01/29/24 04:21 35 MLS/HR laboratory and microbiology Laboratory Tests 01/29/24 03:52 Test 01/29/24 03:52 Range/Units Serum Glucose 217 H 74-106 mg/dL Assessment/Plan Patient is 28 year old morbidly obese male who presented to ED with shortness of breath. He has been intubated for respiratory failure and in on vent. support. Information was obtained by reviewing the chart and communicating with staff. Cardiology is involved for cardiac aspects of care. There is no report of chest pain prior to presentation. 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 Intubated and on vent support. Morbidly obese. Does have right sided subclavian access. No JVD. Mucosa is pink and wet. No goiter. Scattered rhonchi is heard. Cardiac: RR, no thrill, no gallop. Abdomen is soft, obese and distended. BS is +. Ext reveal 2+ edema bilaterally. DP is 2+ bilateral PMH reportedly includes Morbid obesity, Asthma (with previous intubations), Autism, Schizophrenia and ANNETTE. Smokes Marijuana and drinks alcohol WBC: 11.6 to 11.2 to 14.2 to 12.2 to 13.3 to 16.4 to 17.5 to 15.3 to 13.8 to 15.7 D-dimer: 0.43 (wnl) Creat: 0.73 - 0.70 - 0.67 - 0.76 - 0.71 - 0.70 - 0.69 - 0.59 - 0.60 - 0.52 - 0.50 - 0.47 K: 4.1 - 4.3 - 4.1 - 4.2 - 4.0 - 4.1 - 4.1 - 3.9 - 4.0 - 3.8 BNP: 561.97 - 173.31 Trop (high sensitive): 61 - 62 - 131 - 132 - 91 - 82 TSH: 0.48 Urine toxicology was positive for Cannabinoids and Benzodiazpin Chest xry revealed: FINDINGS: Lines and Tubes: None Lungs: Obscuration of the left hemidiaphragm Diffuse interstitial prominence. No pneumothorax. Cardiomediastinal contours: Moderate cardiomegaly Bones: No acute osseous abnormality. IMPRESSION: Moderate cardiomegaly with findings suggestive of congestive heart failure. Possible left-sided pleural effusion. Repeat chest xry revealed: Endotracheal tube projects terminating 1.8 cm superior to the zbigniew. Enteric tube is projecting below the GE junction without visualization of the port or tip. Low lung volumes with bronchovascular crowding. Possible small left-sided pleural effusion and/or atelectasis. No pneumothorax. Repeat chest xry revealed: Cardiomediastinal silhouette is enlarged. There is increased pulmonary vascular congestion, similar prior examination. Obscuration of the left hemidiaphragm may be on the basis of technique versus small pleural effusion. No discrete pneumothorax. Endotracheal tube and enteric tube are redemonstrated. Left IJ catheter tip is likely at the region of the brachiocephalic vein. Repeat chest xry revealed: FINDINGS: Cardiomediastinal silhouette is enlarged. There is increased pulmonary vascular congestion, similar prior examination. Obscuration of the left hemidiaphragm may be on the basis of technique versus small pleural effusion. No discrete pneumothorax. Endotracheal tube and enteric tube are redemonstrated. Left IJ catheter tip is likely at the region of the brachiocephalic vein. IMPRESSION: NO INTERVAL CHANGE. Repeat chest xry revealed: IMPRESSION: Improving pulmonary edema compared to prior exam. Repeat chest xry revealed: IMPRESSION: stable pulmonary edema compared to prior exam. Repeat chest xry revealed: IMPRESSION: Lines and tubes in satisfactory position. No significant interval change. Repeat chest xry revealed: IMPRESSION: Lines and tubes in satisfactory position. No significant interval change. Repeat chest xry revealed: IMPRESSION: Lines and tubes in satisfactory position. No significant interval change. Repeat chest xry: IMPRESSION: 1. Stable position of the support lines and tubes. 2. No significant change in diffuse bilateral airspace opacities. Repeat chest xry revealed: IMPRESSION: 1. Endotracheal tube terminates 6.4 symbol the zbigniew. 2. Bilateral airspace disease unchanged. Venous duplex of lower ext revealed: Impression: 1. No right or left femoropopliteal venous thrombosis. 2. Left common femoral vein and proximal superficial femoral vein are not visible and therefore thrombus can not be excluded in those areas. EKG revealed: Sinus tachycardia with non-specific STT changes Tele reveals Sinus rhythm Echocardiogram revealed: Technically limited study secondary to poor acoustic windows. Left ventricle: Left ventricle was normal-sized with normal systolic function. LVEF was 60-65%. There was no gross wall motion abnormality observed. Right ventricle was not well visualized but it was dilated. Left atrium was normal-sized. Right atrium was not well visualized. Aortic valve was trileaflet and normal. There was no aortic insufficiency/stenosis. There was trivial mitral and tricuspid regurgitation. There was mild pulmonary valve insufficiency. As there was no good tricuspid regurgitation jet, right ventricular systolic pressure could not be estimated. There was no pericardial effusion. Patient is 28 year old male with history of morbid obesity who presented with respiratory failure. Does have history of Asthma and reportedly has been intubated for it before. Trop has been mildly elevated. ACS is less likely and increase in troponin most likely represents demand physiology. Still, component of type 1 physiology cannot be completely ruled out. Echo revealed dilated RV. As there was no good TR jet, RVSP could not be estimated. Pulmonary Hypertension cannot be ruled out. Pulmonary on board. On sedation Acute respiratory failure Asthma Asthma exacerbation Morbid obesity Abnormal trop Questionable heart failure, acute Cardiac suggestion for management: Manage in ICU IV diuresis Follow up electrolytes and kidney function test and correct abnormalities. Keep potassium above 4 and magnesium above 2 Lovenox ASA Follow up vital signs and correct hyper/hypotension. If needed add pressure support to keep MAP above 65 mmHg Pulmonary follow up Further evaluation and management depends on the above and clinical course A total of 75 minutes was spent reviewing the patient record, examining the patient, making a diagnostic and therapeutic plan, discussing this plan with medical personnel, following up on diagnostic studies and following the patient for clinical stability excluding any and all procedures. At least 50% of this time was spent in direct, [id number] contact. Thank you for allowing me to participate in this patient's care. Further recommendations will depend on patient's clinical course. Please do not hesitate to contact me if you have any questions or concerns. This medical document was created using electronic medical record system with [employer] computerized dictation system. Although this document has been carefully reviewed, there may still be some phonetic and typographical errors. These areas are purely typographical due to the imperfection of the software programs, and do not reflect any compromise in the patient's medical care. Dietary Evaluation Review Comments: Current Jevity 1.2 @60ml/hr TF is meeting pt's need for protein at 60% for energy at 117% Continue monitor nutrition progress of nutrition support to meet 75% of his needs. Advance to a cardiac diet, texture as tolerated when medically feasible. Expected Outcomes/Goals: gradual weight loss Plan discussed with: Other (nurse) PARRIS MCKINNON MD Jan 29, 2024 07:54
[2024-01-29 08:52] LABS: INR 1.08 (0.9-1.15); Partial Thromboplastin Time 28.5 SEC (24.5-34.5); Prothrombin Time 11.4 sec (9.3-11.8)
--- NOTE | 2024-01-29 12:48 | DVHPN2 ---
Progress Note - Dictate Date Seen: Jan 29, 2024 Medical Necessity Reason Pt with a Central, PICC or Fol: Yes The following are medically ne: Reyes Catheter Reason for reyes catheter: Strict I&O vital signs Vital Sign Date Time Temp Pulse Resp B/P (MAP) Pulse Ox O2 Delivery O2 Flow Rate FiO2 01/29/24 12:34 98.6 60 28 132/66 (88) 92 209.5 01/29/24 12:00 45 01/29/24 12:00 Mechanical Ventilator+ Total Intake and Output 01/28/24 01/28/24 01/29/24 15:00 23:00 07:00 Intake Total 705.728 ml 1242.661 ml 1560.630 ml Output Total 2150 ml 375 ml 1025 ml Balance -1444.272 ml 867.661 ml 535.630 ml medications Current Medications Medications Dose Ordered Sig/Reji Route Start Time Stop Time Status Last Admin Dose Admin Ondansetron HCl 4 mg Q4HP PRN IV 01/19/24 20:15 Pantoprazole Sodium 40 mg DAILY IV 01/20/24 10:00 01/29/24 10:56 40 MG Nitroglycerin 0.4 mg Q5MINP PRN SL 01/19/24 20:15 Midazolam HCl 50 ml @ 1 mls/hr Q24H IV 01/19/24 21:30 01/29/24 06:54 15 MLS/HR Aspirin 81 mg DAILY NG 01/20/24 10:00 01/28/24 10:01 81 MG Atorvastatin Calcium 40 mg HS PO 01/20/24 22:00 01/28/24 21:22 40 MG Enoxaparin Sodium 150 mg Q12HR SC 01/20/24 10:00 01/28/24 10:03 150 MG Latanoprost 1 drop QPM EACHEYE 01/20/24 18:00 01/28/24 17:44 1 DROP Patient Own Medication 400 mg MONTHLY IM 01/20/24 11:30 Lisinopril 20 mg DAILY PO 01/20/24 11:30 01/29/24 10:57 20 MG Nitroglycerin 250 ml @ 1.5 mls/hr Q24H IV 01/20/24 20:30 Albuterol 2.5 mg Q4HR NEB 01/20/24 22:00 01/29/24 09:39 2.5 MG Ipratropium [place] 0.5 mg Q4HR NEB 01/20/24 22:00 01/29/24 09:39 0.5 MG Doxycycline Hyclate 250 ml @ 125 mls/hr Q12H IV 01/21/24 14:30 01/29/24 01:56 125 MLS/HR Enteral Nutritional Formula 1,000 ml 60ML/HR GT 01/22/24 14:00 01/29/24 03:25 1,000 ML Purified Water 100 ml Q6HR GT 01/22/24 18:00 01/29/24 12:27 100 ML Methylprednisolone Sodium Succinate 60 mg Q4HR IV 01/24/24 16:00 01/29/24 10:58 60 MG Rocuronium [place] 1000 mg/ Dextrose 250 ml @ 20.832 mls/ hr Q12H1M IV 01/24/24 17:30 01/29/24 05:04 14.582 MLS/HR Norepinephrine Bitartrate 250 ml @ 3.75 mls/hr Q24H IV 01/24/24 18:30 Propofol 100 ml @ 5.046 mls/ hr [id number] IV 01/26/24 22:30 01/29/24 11:14 20.184 MLS/HR Furosemide 40 mg DAILY IV 01/27/24 10:00 01/29/24 10:57 40 MG Vancomycin HCl 300 ml @ 200 mls/hr Q8H IV 01/28/24 02:00 Cancel Linezolid 300 ml @ 150 mls/hr Q12HR IV 01/28/24 22:00 01/29/24 10:56 150 MLS/HR Metoclopramide HCl 10 mg Q8HR IV 01/28/24 14:00 01/29/24 05:33 10 MG Docusate Sodium 100 mg BID GT 01/28/24 22:00 01/29/24 10:56 100 MG Fentanyl Citrate 250 ml @ 2.5 mls/hr Q24H IV 01/29/24 04:00 01/29/24 11:05 35 MLS/HR objective General Appearance: alert, no distress HEENT: EOMI, PERRLA, normal external inspect of ears, no icterus, no nasal drainage Neck: no carotid bruit, no jugular venous distention (JVD), no lymphadenopathy Chest: normal thorax Respiratory: clear to auscultation Cardiovascular: regular rate and rhythm, no diastolic murmur, no jugular venous distention (JVD), no rub, no systolic murmur Abdominal: soft, no hepatomegaly, no mass, no splenomegaly, no tenderness Genitourinary: grossly normal external Musculoskeletal: no joint tenderness, no swelling Extremities: normal pulses, no calf tenderness, no clubbing, no cyanosis, no edema Skin: no bruising, no jaundice, no rash Neurological: alert, No focal deficit laboratory and microbiology Laboratory Tests 01/29/24 03:52 Test 01/29/24 03:52 Range/Units Serum Glucose 217 H 74-106 mg/dL Problem List 1. Asthma with acute exacerbation Pulmonary consult, monitoring 2. Acute hypoxic respiratory failure requiring intubation Pulmonary Consult 3. Schizophrenia Monitoring 4. Autism Medication, monitoring 5. Elevated Troponin Cardiology Consult, monitoring 6. Cannabis Use Education Assessment/Plan Subjective: Patient remains on the ventilator. Objective: Patient was emergently intubated for acute hypoxic respiratory failure due to asthma exacerbation and likely underlying pneumonia. Hemoglobin remains stable. Plan: Continue current treatment. Continue ventilator management per pulmonary. Continue IV antibiotics. Dietary Evaluation Review Comments: Current Jevity 1.2 @60ml/hr TF is meeting pt's need for protein at 60% for energy at 117% Continue monitor nutrition progress of nutrition support to meet 75% of his needs. Advance to a cardiac diet, texture as tolerated when medically feasible. Expected Outcomes/Goals: gradual weight loss Plan discussed with: Patient, Other VIK COBOS NP Jan 29, 2024 12:48
--- NOTE | 2024-01-29 18:01 | DVH ---
EXAMINATION: AP portable chest radiograph CLINICAL HISTORY: OG TUBE PLACEMENT COMPARISON: XY CHEST PORTABLE on DOS: 01/29/24, XY CHEST PORTABLE on DOS: 01/28/24, XY CHEST XRAY 1 V IEW on DOS: 01/26/24 TECHNIQUE: PORTABLE AP VIEW OF THE CHEST. FINDINGS: Endotracheal tube 4.1 cm above the zbigniew. OG tube not visualized. IMPRESSION: 1. Endotracheal tube 4.1 cm above the zbigniew. 2. OG tube not visualized AND may BE IN THE RIGHT MAINSTEM BRONCHUS RECOMMEND REMOVAL AND REPOSITIONI NG WITH REPEAT CHEST X-RAY. HS:Y
--- NOTE | 2024-01-29 21:09 | DVH ---
EXAMINATION: AP portable chest radiograph CLINICAL HISTORY: OG TUBE PLACEMENT RECHECK COMPARISON: XY CHEST PORTABLE on DOS: 01/29/24, XY CHEST PORTABLE on DOS: 01/29/24, XY CHEST PORTABLE on DOS: 01/28/24 TECHNIQUE: SINGLE VIEW OF THE CHEST. FINDINGS: Endotracheal tube in place 4.4 cm above the zbigniew. Left internal jugular catheter in place in the superior vena cava. Cardiomegaly is noted with pulmonary vascular congestion findings may represent congestive failure ot her possibility such as pneumonia are in the differential. IMPRESSION: 1. Cardiomegaly with findings of pulmonary vascular congestion. Findings may represent congestive boris lure or pneumonia. HS:Y
--- NOTE | 2024-01-29 23:23 | DVHPN2 ---
Progress Note - Dictate Date Seen: Jan 29, 2024 Medical Necessity Reason Pt with a Central, PICC or Fol: Yes The following are medically ne: Reyes Catheter Reason for reyes catheter: Strict I&O Subjective Patient seen and examined at bedside. Sedated, intubated on mechanical ventilator. Overnight events reviewed. vital signs Vital Sign Date Time Temp Pulse Resp B/P (MAP) Pulse Ox O2 Delivery O2 Flow Rate FiO2 01/29/24 22:44 178/103 01/29/24 22:02 69 28 97 45 01/29/24 20:00 Mechanical Ventilator+ 01/29/24 19:49 99.3 210.7 Total Intake and Output 01/28/24 01/28/24 01/29/24 15:00 23:00 07:00 Intake Total 705.728 ml 1242.661 ml 1560.630 ml Output Total 2150 ml 375 ml 1025 ml Balance -1444.272 ml 867.661 ml 535.630 ml medications Current Medications Medications Dose Ordered Sig/Reji Route Start Time Stop Time Status Last Admin Dose Admin Ondansetron HCl 4 mg Q4HP PRN IV 01/19/24 20:15 Pantoprazole Sodium 40 mg DAILY IV 01/20/24 10:00 01/29/24 10:56 40 MG Nitroglycerin 0.4 mg Q5MINP PRN SL 01/19/24 20:15 Midazolam HCl 50 ml @ 1 mls/hr Q24H IV 01/19/24 21:30 01/29/24 22:44 15 MLS/HR Aspirin 81 mg DAILY NG 01/20/24 10:00 01/28/24 10:01 81 MG Atorvastatin Calcium 40 mg HS PO 01/20/24 22:00 01/29/24 22:03 40 MG Enoxaparin Sodium 150 mg Q12HR SC 01/20/24 10:00 01/28/24 10:03 150 MG Latanoprost 1 drop QPM EACHEYE 01/20/24 18:00 01/29/24 18:16 1 DROP Patient Own Medication 400 mg MONTHLY IM 01/20/24 11:30 Lisinopril 20 mg DAILY PO 01/20/24 11:30 01/29/24 10:57 20 MG Nitroglycerin 250 ml @ 1.5 mls/hr Q24H IV 01/20/24 20:30 Albuterol 2.5 mg Q4HR NEB 01/20/24 22:00 01/29/24 22:02 2.5 MG Ipratropium [place] 0.5 mg Q4HR NEB 01/20/24 22:00 01/29/24 22:02 0.5 MG Doxycycline Hyclate 250 ml @ 125 mls/hr Q12H IV 01/21/24 14:30 01/29/24 13:51 125 MLS/HR Enteral Nutritional Formula 1,000 ml 60ML/HR GT 01/22/24 14:00 01/29/24 03:25 1,000 ML Purified Water 100 ml Q6HR GT 01/22/24 18:00 01/29/24 18:11 100 ML Methylprednisolone Sodium Succinate 60 mg Q4HR IV 01/24/24 16:00 01/29/24 22:03 60 MG Rocuronium [place] 1000 mg/ Dextrose 250 ml @ 20.832 mls/ hr Q12H1M IV 01/24/24 17:30 01/29/24 05:04 14.582 MLS/HR Norepinephrine Bitartrate 250 ml @ 3.75 mls/hr Q24H IV 01/24/24 18:30 Propofol 100 ml @ 5.046 mls/ hr [id number] IV 01/26/24 22:30 01/29/24 19:55 20.184 MLS/HR Furosemide 40 mg DAILY IV 01/27/24 10:00 01/29/24 10:57 40 MG Vancomycin HCl 300 ml @ 200 mls/hr Q8H IV 01/28/24 02:00 Cancel Linezolid 300 ml @ 150 mls/hr Q12HR IV 01/28/24 22:00 01/29/24 22:03 150 MLS/HR Metoclopramide HCl 10 mg Q8HR IV 01/28/24 14:00 01/29/24 22:03 10 MG Docusate Sodium 100 mg BID GT 01/28/24 22:00 01/29/24 22:03 100 MG Fentanyl Citrate 250 ml @ 2.5 mls/hr Q24H IV 01/29/24 04:00 01/29/24 18:18 35 MLS/HR objective Gen.: Patient lying in bed in medical ICU. Sedated, intubated on mechanical ventilator. Head: Normocephalic, atraumatic. Eyes: PERRLA. Ears: Normal external anatomy. Throat: Endotracheal tube and orogastric tube in place. Neck: Supple, trachea midline. Chest: Transmitted breath sounds bilaterally. Decreased air entry bilaterally. No wheezing. Bibasilar crackles. Cardiovascular: Positive S1, positive S2. Regular rate and rhythm. Abdomen: Positive bowel sounds in all 4 quadrants. Soft, nontender, nondistended. : Reyes in place. Normal external genitalia. Rectal: Deferred. Skin: Warm, dry. Intact. Extremities: 2+ radial pulses bilaterally. No lower extremity edema. Neuro: Sedated. laboratory and microbiology Laboratory Tests 01/29/24 03:52 Test 01/29/24 03:52 Range/Units Serum Glucose 217 H 74-106 mg/dL Assessment/Plan Impression: Acute hypoxic respiratory failure On mechanical ventilator Acute exacerbation of asthma Elevated Troponin Schizophrenia Autism Cannabinoid Use Morbid obesity BMI 60.5 Pulmonary edema Events: Remains on vent support On AC mode with RR 28, VT 500, PEEP 10, FiO2 45% Taper off rocuronium. Sedated on Propofol, Versed, Fentanyl Off Levophed since 3 PM on 01/27, hemodynamically stable. Monitor hemodynamics. Taper FiO2 as tolerated Pt with epistaxis from right naris. Recommend to remove NG tube and place [facility] NGT in left naris. ABG reviewed, compensated. Continue bronchodilators IV steroids Continue antibiotics Tube feeds for nutritional support Diurese w/ Lasix QD Monitor renal function Monitor electrolytes. Supplement as necessary. Monitor ins and outs. Labs and imaging reviewed. Rest of plan as noted below. Plan: s/p intubation on mechanical ventilator. On AC mode with RR 28, VT 500, PEEP 10, FiO2 45% Titrate FIO2 to keep O2 saturation above 90%. VAP bundle. Daily ABG and CXR while intubated Sedate for ventilator synchrony Pt does not tolerate turns. Derecruitment. Turn carefully. Elevated Troponin - Cardiology recs appreciated. Continue bronchodilators Antibiotics. F/u cultures. Start pressors if necessary to maintain a mean arterial blood pressure greater than 65 mmHg. Monitor renal function Monitor electrolytes. Supplement as necessary. Monitor ins and outs. Diet and lifestyle modifications for weight reduction Morbid obesity - complicates all care GI prophylaxis. DVT prophylaxis. Prognosis: Poor given patient's multiple co-morbidities. Condition: Critical Rest of plan per hospitalist and other consultants. A total of 35 minutes of critical care time was spent reviewing the patient record, examining the patient, making a diagnostic and therapeutic plan, discussing this plan with the medical personnel, following up on diagnostic studies and following the patient for clinical stability excluding any and all procedures. At least 50% of this time was spent in direct, [id number] contact. Thank you Irma Velasquez, RADHA, for allowing me to participate in this patient's care. Further recommendations will depend on the patient's clinical course. Please do not hesitate to contact me if you have any questions or concerns. This medical document was created using an electronic medical record system with [email or web address] dictation system. Although these documentations are being carefully reviewed, there may still be some phonetic and typographical changes. The errors are purely typographical, due to imperfection on the software program, and do not reflect any compromise in the patient's medical care. Dietary Evaluation Review Comments: Current Jevity 1.2 @60ml/hr TF is meeting pt's need for protein at 60% for energy at 117% Continue monitor nutrition progress of nutrition support to meet 75% of his needs. Advance to a cardiac diet, texture as tolerated when medically feasible. Expected Outcomes/Goals: gradual weight loss Plan discussed with: Other (SAIGE Cheng/Valarie) Critical Care Time(min): 35 VERÓNICA MERCER MD Jan 29, 2024 23:23
[2024-01-30] VITALS (120 sets, daily range): BP systolic 102–199; BP diastolic 49–127; PULSE 46–131; RESP 14–43; TEMP 98.4–99.7; O2SAT 87–100
[2024-01-30 03:54] LABS: Basophils # (auto) 0 10 ^3/uL (0-0.2); Eosinophils # (auto) 0 10 ^3/uL (0-0.8); Lymphocytes # (auto) 0.3 10 ^3/uL (0.4-5.4)
[2024-01-30 03:59] LABS: Basophils % (auto) 0.1 % (0.0-2.0); Hematocrit 40.1 % (41.0-53.0); Hemoglobin 12.1 g/dL (13.5-17.5); Lymphocytes % (auto) 2.2 % (10.0-50.0); Mean Corpuscular Hgb Conc. 30.3 g/dL (32.0-36.0); Mean Corpuscular Volume 72.6 fL (80.0-100.0); Monocytes # (auto) 0.8 10 ^3/uL (0-1.3); Monocytes % (auto) 5.7 % (0.0-12.0); Neutrophils # (auto) 12.6 10 ^3/uL (1.6-8.6); Platelet Count (auto) 221 10^3/uL (140-450); Red Blood Cells 5.53 10^6/uL (4.5-5.90); Red Cell Distribution Width 18.7 % (11.8-14.3); White Blood Cell 13.8 10^3/uL (4.4-10.8)
[2024-01-30 04:30] LABS: Alkaline Phosphatase 85 U/L (46-116)
[2024-01-30 04:31] LABS: Albumin 3.4 g/dL (3.2-4.8); Anion Gap 1 (5-15); Aspartate Aminotransferase 35 U/L (13-40); BUN/Creatinine Ratio 38.3 (10.0-20.0); Blood Urea Nitrogen 18 mg/dL (9-23); Calcium 8.7 mg/dL (8.7-10.4); Chloride 104 mmol/L (98-107); Potassium 4.3 mmol/L (3.5-5.1); Sodium 138 mmol/L (136-145)
[2024-01-30 04:37] LABS: Alanine Aminotransferase 106 U/L (7-40); Carbon Dioxide 33 mmol/L (20-31); Glucose 185 mg/dL (74-106); Total Protein 5.6 g/dL (5.7-8.2)
[2024-01-30 04:49] LABS: Bilirubin, Total 1.4 mg/dL (0.2-1.0)
--- NOTE | 2024-01-30 05:47 | DVH ---
CHEST RADIOGRAPH Indication: PATIENT INTUBATED Technique: Single frontal view of the chest was obtained Comparison: XY CHEST PORTABLE on DOS: 01/29/24 FINDINGS: Lines and Tubes: The endotracheal tube terminates 3.1 cm above the zbigniew. Left central venous zaheer ter terminates in the superior vena cava. Enteric tube is visualized to the mid chest but not visuali zed below the left hemidiaphragm. Lungs: Bilateral airspace disease. Pleura: No effusion. No pneumothorax. Cardiomediastinal contours: Stable cardiomegaly. Bones: No acute osseous abnormality. IMPRESSION: 1. Enteric tube not visualized below the left hemidiaphragm. 2. Bilateral airspace disease similar to prior exam.
--- NOTE | 2024-01-30 06:31 | DVHPN2 ---
Progress Note - Dictate Date Seen: Jan 30, 2024 Medical Necessity Reason Pt with a Central, PICC or Fol: Yes The following are medically ne: Reyes Catheter Reason for reyes catheter: Strict I&O vital signs Vital Sign Date Time Temp Pulse Resp B/P (MAP) Pulse Ox O2 Delivery O2 Flow Rate FiO2 01/30/24 06:00 45 01/30/24 06:00 28 90 Mechanical Ventilator+ 01/30/24 06:00 93 01/30/24 05:49 98.6 173/97 (122) 209.5 Total Intake and Output 01/29/24 01/29/24 01/30/24 15:00 23:00 07:00 Intake Total 640.634 ml 1335.010 ml 1689.572 ml Output Total 1850 ml 900 ml Balance 640.634 ml -514.990 ml 789.572 ml medications Current Medications Medications Dose Ordered Sig/Reji Route Start Time Stop Time Status Last Admin Dose Admin Ondansetron HCl 4 mg Q4HP PRN IV 01/19/24 20:15 Pantoprazole Sodium 40 mg DAILY IV 01/20/24 10:00 01/29/24 10:56 40 MG Nitroglycerin 0.4 mg Q5MINP PRN SL 01/19/24 20:15 Midazolam HCl 50 ml @ 1 mls/hr Q24H IV 01/19/24 21:30 01/30/24 04:31 15 MLS/HR Aspirin 81 mg DAILY NG 01/20/24 10:00 01/28/24 10:01 81 MG Atorvastatin Calcium 40 mg HS PO 01/20/24 22:00 01/29/24 22:03 40 MG Enoxaparin Sodium 150 mg Q12HR SC 01/20/24 10:00 01/28/24 10:03 150 MG Latanoprost 1 drop QPM EACHEYE 01/20/24 18:00 01/29/24 18:16 1 DROP Patient Own Medication 400 mg MONTHLY IM 01/20/24 11:30 Lisinopril 20 mg DAILY PO 01/20/24 11:30 01/29/24 10:57 20 MG Nitroglycerin 250 ml @ 1.5 mls/hr Q24H IV 01/20/24 20:30 Albuterol 2.5 mg Q4HR NEB 01/20/24 22:00 01/30/24 02:01 2.5 MG Ipratropium [place] 0.5 mg Q4HR NEB 01/20/24 22:00 01/30/24 02:01 0.5 MG Doxycycline Hyclate 250 ml @ 125 mls/hr Q12H IV 01/21/24 14:30 01/30/24 02:53 125 MLS/HR Enteral Nutritional Formula 1,000 ml 60ML/HR GT 01/22/24 14:00 01/29/24 03:25 1,000 ML Purified Water 100 ml Q6HR GT 01/22/24 18:00 01/30/24 05:35 100 ML Methylprednisolone Sodium Succinate 60 mg Q4HR IV 01/24/24 16:00 01/30/24 05:35 60 MG Rocuronium [place] 1000 mg/ Dextrose 250 ml @ 20.832 mls/ hr Q12H1M IV 01/24/24 17:30 01/29/24 05:04 14.582 MLS/HR Norepinephrine Bitartrate 250 ml @ 3.75 mls/hr Q24H IV 01/24/24 18:30 Propofol 100 ml @ 5.046 mls/ hr [id number] IV 01/26/24 22:30 01/30/24 05:15 20.184 MLS/HR Furosemide 40 mg DAILY IV 01/27/24 10:00 01/29/24 10:57 40 MG Vancomycin HCl 300 ml @ 200 mls/hr Q8H IV 01/28/24 02:00 Cancel Linezolid 300 ml @ 150 mls/hr Q12HR IV 01/28/24 22:00 01/29/24 22:03 150 MLS/HR Metoclopramide HCl 10 mg Q8HR IV 01/28/24 14:00 01/30/24 05:35 10 MG Docusate Sodium 100 mg BID GT 01/28/24 22:00 01/29/24 22:03 100 MG Fentanyl Citrate 250 ml @ 2.5 mls/hr Q24H IV 01/29/24 04:00 01/30/24 00:18 35 MLS/HR laboratory and microbiology Laboratory Tests 01/30/24 03:20 Test 01/30/24 03:20 Range/Units Serum Glucose 185 H 74-106 mg/dL Assessment/Plan Patient is 28 year old morbidly obese male who presented to ED with shortness of breath. He has been intubated for respiratory failure and in on vent. support. Information was obtained by reviewing the chart and communicating with staff. Cardiology is involved for cardiac aspects of care. There is no report of chest pain prior to presentation. Reportedly, patient has been intubated for technician terminal and repeater previously for Asthma in other institution. Intubated and on vent support. Morbidly obese. Does have right sided subclavian access. No JVD. Mucosa is pink and wet. No goiter. Scattered rhonchi is heard. Cardiac: RR, no thrill, no gallop. Abdomen is soft, obese and distended. BS is +. Ext reveal 2+ edema bilaterally. DP is 2+ bilateral PMH reportedly includes Morbid obesity, Asthma (with previous intubations), Autism, Schizophrenia and ANNETTE. Smokes Marijuana and drinks alcohol WBC: 11.6 to 11.2 to 14.2 to 12.2 to 13.3 to 16.4 to 17.5 to 15.3 to 13.8 to 15.7 to 13.8 D-dimer: 0.43 (wnl) Creat: 0.73 - 0.70 - 0.67 - 0.76 - 0.71 - 0.70 - 0.69 - 0.59 - 0.60 - 0.52 - 0.50 - 0.47 - 0.47 K: 4.1 - 4.3 - 4.1 - 4.2 - 4.0 - 4.1 - 4.1 - 3.9 - 4.0 - 3.8 - 4.3 BNP: 561.97 - 173.31 Trop (high sensitive): 61 - 62 - 131 - 132 - 91 - 82 TSH: 0.48 Urine toxicology was positive for Cannabinoids and Benzodiazpin Chest xry revealed: FINDINGS: Lines and Tubes: None Lungs: Obscuration of the left hemidiaphragm Diffuse interstitial prominence. No pneumothorax. Cardiomediastinal contours: Moderate cardiomegaly Bones: No acute osseous abnormality. IMPRESSION: Moderate cardiomegaly with findings suggestive of congestive heart failure. Possible left-sided pleural effusion. Repeat chest xry revealed: Endotracheal tube projects terminating 1.8 cm superior to the zbigniew. Enteric tube is projecting below the GE junction without visualization of the port or tip. Low lung volumes with bronchovascular crowding. Possible small left-sided pleural effusion and/or atelectasis. No pneumothorax. Repeat chest xry revealed: Cardiomediastinal silhouette is enlarged. There is increased pulmonary vascular congestion, similar prior examination. Obscuration of the left hemidiaphragm may be on the basis of technique versus small pleural effusion. No discrete pneumothorax. Endotracheal tube and enteric tube are redemonstrated. Left IJ catheter tip is likely at the region of the brachiocephalic vein. Repeat chest xry revealed: FINDINGS: Cardiomediastinal silhouette is enlarged. There is increased pulmonary vascular congestion, similar prior examination. Obscuration of the left hemidiaphragm may be on the basis of technique versus small pleural effusion. No discrete pneumothorax. Endotracheal tube and enteric tube are redemonstrated. Left IJ catheter tip is likely at the region of the brachiocephalic vein. IMPRESSION: NO INTERVAL CHANGE. Repeat chest xry revealed: IMPRESSION: Improving pulmonary edema compared to prior exam. Repeat chest xry revealed: IMPRESSION: stable pulmonary edema compared to prior exam. Repeat chest xry revealed: IMPRESSION: Lines and tubes in satisfactory position. No significant interval change. Repeat chest xry revealed: IMPRESSION: Lines and tubes in satisfactory position. No significant interval change. Repeat chest xry revealed: IMPRESSION: Lines and tubes in satisfactory position. No significant interval change. Repeat chest xry: IMPRESSION: 1. Stable position of the support lines and tubes. 2. No significant change in diffuse bilateral airspace opacities. Repeat chest xry revealed: IMPRESSION: 1. Endotracheal tube terminates 6.4 symbol the zbigniew. 2. Bilateral airspace disease unchanged. Repeat chest xry revealed: IMPRESSION: 1. Endotracheal tube 4.1 cm above the zbigniew. 2. OG tube not visualized AND may BE IN THE RIGHT MAINSTEM BRONCHUS RECOMMEND REMOVAL AND REPOSITIONING WITH REPEAT CHEST X-RAY. Repeat chest xry revealed: FINDINGS: Endotracheal tube in place 4.4 cm above the zbigniew. Left internal jugular catheter in place in the superior vena cava. Cardiomegaly is noted with pulmonary vascular congestion findings may represent congestive failure other possibility such as pneumonia are in the differential. IMPRESSION: 1. Cardiomegaly with findings of pulmonary vascular congestion. Findings may represent congestive failure or pneumonia. Repeat chest xry revealed: Lines and Tubes: The endotracheal tube terminates 3.1 cm above the zbigniew. Left central venous catheter terminates in the superior vena cava. Enteric tube is visualized to the mid chest but not visualized below the left hemidiaphragm. Lungs: Bilateral airspace disease. Pleura: No effusion. No pneumothorax. Cardiomediastinal contours: Stable cardiomegaly. Bones: No acute osseous abnormality. IMPRESSION: 1. Enteric tube not visualized below the left hemidiaphragm. 2. Bilateral airspace disease similar to prior exam. Venous duplex of lower ext revealed: Impression: 1. No right or left femoropopliteal venous thrombosis. 2. Left common femoral vein and proximal superficial femoral vein are not visible and therefore thrombus can not be excluded in those areas. EKG revealed: Sinus tachycardia with non-specific STT changes Tele reveals Sinus rhythm Echocardiogram revealed: Technically limited study secondary to poor acoustic windows. Left ventricle: Left ventricle was normal-sized with normal systolic function. LVEF was 60-65%. There was no gross wall motion abnormality observed. Right ventricle was not well visualized but it was dilated. Left atrium was normal-sized. Right atrium was not well visualized. Aortic valve was trileaflet and normal. There was no aortic insufficiency/stenosis. There was trivial mitral and tricuspid regurgitation. There was mild pulmonary valve insufficiency. As there was no good tricuspid regurgitation jet, right ventricular systolic pressure could not be estimated. There was no pericardial effusion. Patient is 28 year old male with history of morbid obesity who presented with respiratory failure. Does have history of Asthma and reportedly has been intubated for it before. Trop has been mildly elevated. ACS is less likely and increase in troponin most likely represents demand physiology. Still, component of type 1 physiology cannot be completely ruled out. Echo revealed dilated RV. As there was no good TR jet, RVSP could not be estimated. Pulmonary Hypertension cannot be ruled out. Pulmonary on board. On sedation Acute respiratory failure Asthma Asthma exacerbation Morbid obesity Abnormal trop Questionable heart failure, acute Cardiac suggestion for management: Manage in ICU IV diuresis Follow up electrolytes and kidney function test and correct abnormalities. Keep potassium above 4 and magnesium above 2 Lovenox ASA Follow up vital signs and correct hyper/hypotension. If needed add pressure support to keep MAP above 65 mmHg Pulmonary follow up Further evaluation and management depends on the above and clinical course A total of 75 minutes was spent reviewing the patient record, examining the patient, making a diagnostic and therapeutic plan, discussing this plan with medical personnel, following up on diagnostic studies and following the patient for clinical stability excluding any and all procedures. At least 50% of this time was spent in direct, [id number] contact. Thank you for allowing me to participate in this patient's care. Further recommendations will depend on patient's clinical course. Please do not hesitate to contact me if you have any questions or concerns. This medical document was created using electronic medical record system with [employer] computerized dictation system. Although this document has been carefully reviewed, there may still be some phonetic and typographical errors. These areas are purely typographical due to the imperfection of the software programs, and do not reflect any compromise in the patient's medical care. Dietary Evaluation Review Comments: Current Jevity 1.2 @60ml/hr TF is meeting pt's need for protein at 60% for energy at 117% Continue monitor nutrition progress of nutrition support to meet 75% of his needs. Advance to a cardiac diet, texture as tolerated when medically feasible. Expected Outcomes/Goals: gradual weight loss Plan discussed with: Other (nurse) PARRIS MCKINNON MD Jan 30, 2024 06:31
--- NOTE | 2024-01-30 16:00 | DVH ---
EXAM: XY KUB ABDOMEN SINGLE VIEW HISTORY: og tube placement COMPARISON: None TECHNIQUE: Single AP of the abdomen and pelvis was obtained. Findings: Frontal view of the abdomen demonstrates a nonobstructive bowel gas pattern. No visualized renal calc bozena. There is no evidence of an acute fracture, dislocation, blastic, or lytic lesions. The visualized portions of the lung bases are unremarkable. Enteric tube overlying the plane of the stomach. No superficial soft tissue abnormalities. Impression: 1. Nonobstructive bowel gas pattern. 2. Enteric tube overlying the plane of the stomach. 3. No visualized renal calculi.
--- NOTE | 2024-01-30 18:45 | DVHPN2 ---
Progress Note Date Seen: Jan 30, 2024 Medical Necessity Reason Pt with a Central, PICC or Fol: Yes The following are medically ne: Reyes Catheter Reason for reyes catheter: Strict I&O Subjective Review of Systems: Not Done (Patient is intubated and sedated) Objective vital signs Vital Sign Date Time Temp Pulse Resp B/P (MAP) Pulse Ox O2 Delivery O2 Flow Rate FiO2 01/30/24 18:17 96 28 141/90 (107) 93 45 01/30/24 16:00 Mechanical Ventilator+ 01/30/24 15:34 99.0 210.2 Total Intake and Output 01/29/24 01/29/24 01/30/24 15:00 23:00 07:00 Intake Total 640.634 ml 1335.010 ml 1798.362 ml Output Total 1850 ml 900 ml Balance 640.634 ml -514.990 ml 898.362 ml medications Current Medications Medications Dose Ordered Sig/Reji Route Start Time Stop Time Status Last Admin Dose Admin Ondansetron HCl 4 mg Q4HP PRN IV 01/19/24 20:15 Pantoprazole Sodium 40 mg DAILY IV 01/20/24 10:00 01/30/24 10:00 40 MG Nitroglycerin 0.4 mg Q5MINP PRN SL 01/19/24 20:15 Midazolam HCl 50 ml @ 1 mls/hr Q24H IV 01/19/24 21:30 01/30/24 17:36 15 MLS/HR Aspirin 81 mg DAILY NG 01/20/24 10:00 01/30/24 17:42 81 MG Atorvastatin Calcium 40 mg HS PO 01/20/24 22:00 01/29/24 22:03 40 MG Enoxaparin Sodium 150 mg Q12HR SC 01/20/24 10:00 01/30/24 13:21 150 MG Latanoprost 1 drop QPM EACHEYE 01/20/24 18:00 01/30/24 17:34 1 DROP Patient Own Medication 400 mg MONTHLY IM 01/20/24 11:30 Lisinopril 20 mg DAILY PO 01/20/24 11:30 01/30/24 17:42 20 MG Nitroglycerin 250 ml @ 1.5 mls/hr Q24H IV 01/20/24 20:30 Albuterol 2.5 mg Q4HR NEB 01/20/24 22:00 01/30/24 18:17 2.5 MG Ipratropium [place] 0.5 mg Q4HR NEB 01/20/24 22:00 01/30/24 18:17 0.5 MG Doxycycline Hyclate 250 ml @ 125 mls/hr Q12H IV 01/21/24 14:30 01/30/24 13:51 125 MLS/HR Enteral Nutritional Formula 1,000 ml 60ML/HR GT 01/22/24 14:00 01/29/24 03:25 1,000 ML Purified Water 100 ml Q6HR GT 01/22/24 18:00 01/30/24 17:34 100 ML Methylprednisolone Sodium Succinate 60 mg Q4HR IV 01/24/24 16:00 01/30/24 17:33 60 MG Rocuronium [place] 1000 mg/ Dextrose 250 ml @ 20.832 mls/ hr Q12H1M IV 01/24/24 17:30 01/30/24 17:44 6.25 MLS/HR Norepinephrine Bitartrate 250 ml @ 3.75 mls/hr Q24H IV 01/24/24 18:30 Propofol 100 ml @ 5.046 mls/ hr [id number] IV 01/26/24 22:30 01/30/24 13:47 30.276 MLS/HR Furosemide 40 mg DAILY IV 01/27/24 10:00 01/30/24 10:01 40 MG Vancomycin HCl 300 ml @ 200 mls/hr Q8H IV 01/28/24 02:00 Cancel Linezolid 300 ml @ 150 mls/hr Q12HR IV 01/28/24 22:00 01/30/24 09:58 150 MLS/HR Metoclopramide HCl 10 mg Q8HR IV 01/28/24 14:00 01/30/24 13:47 10 MG Docusate Sodium 100 mg BID GT 01/28/24 22:00 01/29/24 22:03 100 MG Fentanyl Citrate 250 ml @ 2.5 mls/hr Q24H IV 01/29/24 04:00 01/30/24 14:16 35 MLS/HR Hydralazine HCl 10 mg Q6HP PRN IV 01/30/24 13:15 Examination: GENERAL:Normal, LUNGS:Abnormal (Diminished on ventilator), CVS:Normal, ABDOMEN:Normal (OG tube in place), SKIN:Normal, NEURO:Normal laboratory and microbiology Laboratory Tests 01/30/24 03:20 Test 01/30/24 03:20 Range/Units Serum Glucose 185 H 74-106 mg/dL Microbiology Date/Time Source Procedure Growth Status 01/22/24 23:08 Blood Blood Culture - Final NO GROWTH AFTER 5 DAYS OF INCUBATION. Complete 01/21/24 18:24 Nose MRSA Screen - Final Complete 01/19/24 21:00 Sputum Gram Stain - Final Complete 01/19/24 21:00 Sputum Respiratory Culture - Final Complete Labs and/or images reviewed: Labs reviewed by me, Image(s) reviewed by me Problem List/Assessment/Plan Problem List/Assessment/Plan 1. Asthma with acute exacerbation Pulmonary consult, monitoring 2. Acute hypoxic respiratory failure requiring intubation Pulmonary Consult 3. Schizophrenia Monitoring 4. Autism Medication, monitoring 5. Elevated Troponin Cardiology Consult, monitoring 6. Cannabis Use Education Assessment/Plan Subjective: Patient remains on the ventilator on a paralytic. Objective: Patient was emergently intubated on January 19, 2024, for acute hypoxic respiratory failure due to asthma exacerbation and likely underlying pneumonia. FiO2 is currently 40%, and PEEP was increased to 10 today. Stool was positive for occult blood, though hemoglobin and platelet counts are stable. Patient previously had nosebleed which has now been controlled with rhino rocket. Okay to resume Lovenox for DVT prophylaxis. Nurses have some concerns with OG tube placement KUB confirmed placement. Okay to resume tube feedings and okay to use to OG-tube. Plan: Continue current treatment. Manage ventilator settings per pulmonary recommendations. Continue IV antibiotics. Discontinue Vancomycin and initiate Zyvox. Okay to use OG tube Plan discussed with: Patient My Orders My Orders Orders - ANAIS REAL PARKING ENFORCER Procedure Category Date Status Time Kub Abdomen Single XY 01/30/24 Resulted View 13:14 Hydralazine Injection PHA 01/30/24 In Process (Apresoline Inject 13:15 Dietary Evaluation Review Comments: Current Jevity 1.2 @60ml/hr TF is meeting pt's need for protein at 60% for energy at 117% Continue monitor nutrition progress of nutrition support to meet 75% of his needs. Advance to a cardiac diet, texture as tolerated when medically feasible. Expected Outcomes/Goals: gradual weight loss Date of Service: Jan 30, 2024 Billing Provider: LAKE VILLAGRAN MD Common Visit Codes: 78381-[id number] INP/OBS CARE (MOD) ANAIS [employer] ENFORCER Jan 30, 2024 18:45
--- NOTE | 2024-01-30 23:12 | DVHPN2 ---
Progress Note - Dictate Date Seen: Jan 30, 2024 Medical Necessity Reason Pt with a Central, PICC or Fol: Yes The following are medically ne: Reyes Catheter Reason for reyes catheter: Strict I&O Subjective Patient seen and examined at bedside. Sedated, intubated on mechanical ventilator. Overnight events reviewed. vital signs Vital Sign Date Time Temp Pulse Resp B/P (MAP) Pulse Ox O2 Delivery O2 Flow Rate FiO2 01/30/24 22:56 136/71 01/30/24 22:34 95 28 100 01/30/24 22:04 45 01/30/24 22:00 Mechanical Ventilator+ 01/30/24 20:04 99.7 99.7 Total Intake and Output 01/29/24 01/29/24 01/30/24 15:00 23:00 07:00 Intake Total 640.634 ml 1335.010 ml 1798.362 ml Output Total 1850 ml 900 ml Balance 640.634 ml -514.990 ml 898.362 ml medications Current Medications Medications Dose Ordered Sig/Reji Route Start Time Stop Time Status Last Admin Dose Admin Ondansetron HCl 4 mg Q4HP PRN IV 01/19/24 20:15 Pantoprazole Sodium 40 mg DAILY IV 01/20/24 10:00 01/30/24 10:00 40 MG Nitroglycerin 0.4 mg Q5MINP PRN SL 01/19/24 20:15 Midazolam HCl 50 ml @ 1 mls/hr Q24H IV 01/19/24 21:30 01/30/24 20:47 15 MLS/HR Aspirin 81 mg DAILY NG 01/20/24 10:00 01/30/24 17:42 81 MG Atorvastatin Calcium 40 mg HS PO 01/20/24 22:00 01/30/24 22:00 40 MG Enoxaparin Sodium 150 mg Q12HR SC 01/20/24 10:00 01/30/24 22:00 150 MG Latanoprost 1 drop QPM EACHEYE 01/20/24 18:00 01/30/24 17:34 1 DROP Patient Own Medication 400 mg MONTHLY IM 01/20/24 11:30 Lisinopril 20 mg DAILY PO 01/20/24 11:30 01/30/24 17:42 20 MG Nitroglycerin 250 ml @ 1.5 mls/hr Q24H IV 01/20/24 20:30 Albuterol 2.5 mg Q4HR NEB 01/20/24 22:00 01/30/24 22:04 2.5 MG Ipratropium [place] 0.5 mg Q4HR NEB 01/20/24 22:00 01/30/24 22:04 0.5 MG Doxycycline Hyclate 250 ml @ 125 mls/hr Q12H IV 01/21/24 14:30 01/30/24 13:51 125 MLS/HR Enteral Nutritional Formula 1,000 ml 60ML/HR GT 01/22/24 14:00 01/29/24 03:25 1,000 ML Purified Water 100 ml Q6HR GT 01/22/24 18:00 01/30/24 17:34 100 ML Methylprednisolone Sodium Succinate 60 mg Q4HR IV 01/24/24 16:00 01/30/24 22:00 60 MG Rocuronium [place] 1000 mg/ Dextrose 250 ml @ 20.832 mls/ hr Q12H1M IV 01/24/24 17:30 01/30/24 20:24 6.25 MLS/HR Norepinephrine Bitartrate 250 ml @ 3.75 mls/hr Q24H IV 01/24/24 18:30 Propofol 100 ml @ 5.046 mls/ hr [id number] IV 01/26/24 22:30 01/30/24 22:56 35.322 MLS/HR Furosemide 40 mg DAILY IV 01/27/24 10:00 01/30/24 10:01 40 MG Vancomycin HCl 300 ml @ 200 mls/hr Q8H IV 01/28/24 02:00 Cancel Linezolid 300 ml @ 150 mls/hr Q12HR IV 01/28/24 22:00 01/30/24 22:00 150 MLS/HR Metoclopramide HCl 10 mg Q8HR IV 01/28/24 14:00 01/30/24 22:00 10 MG Docusate Sodium 100 mg BID GT 01/28/24 22:00 01/30/24 21:59 100 MG Fentanyl Citrate 250 ml @ 2.5 mls/hr Q24H IV 01/29/24 04:00 01/30/24 21:22 35 MLS/HR Hydralazine HCl 10 mg Q6HP PRN IV 01/30/24 13:15 objective Gen.: Patient lying in bed in medical ICU. Sedated, intubated on mechanical ventilator. Head: Normocephalic, atraumatic. Eyes: PERRLA. Ears: Normal external anatomy. Throat: Endotracheal tube and orogastric tube in place. Neck: Supple, trachea midline. Chest: Transmitted breath sounds bilaterally. Decreased air entry bilaterally. No wheezing. Bibasilar crackles. Cardiovascular: Positive S1, positive S2. Regular rate and rhythm. Abdomen: Positive bowel sounds in all 4 quadrants. Soft, nontender, nondistended. : Reyes in place. Normal external genitalia. Rectal: Deferred. Skin: Warm, dry. Intact. Extremities: 2+ radial pulses bilaterally. No lower extremity edema. Neuro: Sedated. laboratory and microbiology Laboratory Tests 01/30/24 03:20 Test 01/30/24 03:20 Range/Units Serum Glucose 185 H 74-106 mg/dL Assessment/Plan Impression: Acute hypoxic respiratory failure On mechanical ventilator Acute exacerbation of asthma Elevated Troponin Schizophrenia Autism Cannabinoid Use Morbid obesity BMI 60.5 Pulmonary edema Events: Remains on vent support On AC mode with RR 28, VT 500, PEEP 10, FiO2 40% On rocuronium.drip. Sedated on Propofol, Versed Off Levophed since 3 PM on 01/27, hemodynamically stable. Monitor hemodynamics. Taper PEEP to 8, FiO2 to 45% Taper off rocuronium. ABG reviewed, compensated. Continue bronchodilators IV steroids Continue antibiotics Tube feeds for nutritional support Diurese w/ Lasix QD Monitor renal function Monitor electrolytes. Supplement as necessary. Monitor ins and outs. Labs and imaging reviewed. Rest of plan as noted below. Plan: s/p intubation on mechanical ventilator. New settings; AC mode with RR 28, VT 500, PEEP 8, FiO2 45% Titrate FIO2 to keep O2 saturation above 90%. VAP bundle. Daily ABG and CXR while intubated Sedate for ventilator synchrony Pt does not tolerate turns. Derecruitment. Turn carefully. Elevated Troponin - Cardiology recs appreciated. Continue bronchodilators Antibiotics. F/u cultures. Start pressors if necessary to maintain a mean arterial blood pressure greater than 65 mmHg. Monitor renal function Monitor electrolytes. Supplement as necessary. Monitor ins and outs. Diet and lifestyle modifications for weight reduction Morbid obesity - complicates all care GI prophylaxis. DVT prophylaxis. Prognosis: Poor given patient's multiple co-morbidities. Condition: Critical Rest of plan per hospitalist and other consultants. A total of 35 minutes of critical care time was spent reviewing the patient record, examining the patient, making a diagnostic and therapeutic plan, discussing this plan with the medical personnel, following up on diagnostic studies and following the patient for clinical stability excluding any and all procedures. At least 50% of this time was spent in direct, [id number] contact. Thank you Irma Velasquez NP, for allowing me to participate in this patient's care. Further recommendations will depend on the patient's clinical course. Please do not hesitate to contact me if you have any questions or concerns. This medical document was created using an electronic medical record system with [employer] dictation system. Although these documentations are being carefully reviewed, there may still be some phonetic and typographical changes. The errors are purely typographical, due to imperfection on the software program, and do not reflect any compromise in the patient's medical care. Dietary Evaluation Review Comments: Current Jevity 1.2 @60ml/hr TF is meeting pt's need for protein at 60% for energy at 117% Continue monitor nutrition progress of nutrition support to meet 75% of his needs. Advance to a cardiac diet, texture as tolerated when medically feasible. Expected Outcomes/Goals: gradual weight loss Plan discussed with: Other (SAIGE Sheppard/Lori) Critical Care Time(min): 35 VERÓNICA MERCER MD Jan 30, 2024 23:12
[2024-01-31] VITALS (114 sets, daily range): BP systolic 79–137; BP diastolic 16–92; PULSE 46–111; RESP 10–29; TEMP 99–101.7; O2SAT 87–100
[2024-01-31 04:00] LABS: Basophils # (auto) 0 10 ^3/uL (0-0.2); Eosinophils # (auto) 0 10 ^3/uL (0-0.8); Monocytes # (auto) 0.6 10 ^3/uL (0-1.3)
[2024-01-31 04:02] LABS: Basophils % (auto) 0.2 % (0.0-2.0); Hematocrit 43.9 % (41.0-53.0); Hemoglobin 13.7 g/dL (13.5-17.5); Lymphocytes # (auto) 0.2 10 ^3/uL (0.4-5.4); Lymphocytes % (auto) 1.1 % (10.0-50.0); Mean Corpuscular Hemoglobin 22.8 pg (28.0-32.0); Mean Corpuscular Hgb Conc. 31.2 g/dL (32.0-36.0); Monocytes % (auto) 2.8 % (0.0-12.0); Neutrophils # (auto) 21.3 10 ^3/uL (1.6-8.6); Neutrophils % (auto) 95.9 % (37.0-80.0); Nucleated Red Blood Cells % 0.1 %; Platelet Count (auto) 229 10^3/uL (140-450); Red Blood Cells 6.02 10^6/uL (4.5-5.90); Red Cell Distribution Width 19.1 % (11.8-14.3); White Blood Cell 22.2 10^3/uL (4.4-10.8)
[2024-01-31 04:10] LABS: Albumin 3.6 g/dL (3.2-4.8); Alkaline Phosphatase 90 U/L (46-116); Anion Gap 8 (5-15); Aspartate Aminotransferase 33 U/L (13-40); Blood Urea Nitrogen 18 mg/dL (9-23); Calcium 8.8 mg/dL (8.7-10.4); Chloride 100 mmol/L (98-107); Potassium 4.7 mmol/L (3.5-5.1); Sodium 139 mmol/L (136-145)
[2024-01-31 04:11] LABS: Total Protein 6.1 g/dL (5.7-8.2)
[2024-01-31 04:23] LABS: Alanine Aminotransferase 97 U/L (7-40); Bilirubin, Total 1.8 mg/dL (0.2-1.0); Carbon Dioxide 31 mmol/L (20-31); Glucose 170 mg/dL (74-106)
[2024-01-31 05:03] LABS: Lactic Acid w/Reflex 2.3 mmol/L (0.4-2.0)
--- NOTE | 2024-01-31 05:43 | DVH ---
CHEST RADIOGRAPH Indication: INTUBATED Technique: Single frontal view of the chest was obtained Comparison: XY CHEST PORTABLE on DOS: 01/30/24, XY CHEST PORTABLE on DOS: 01/29/24, XY CHEST PORTABLE on DOS: 01/29/24 IMPRESSION: Limited evaluation given patient positioning. The heart appears markedly enlarged. There are low emeterio ng volumes with moderate alveolar airspace opacities suggesting pulmonary edema. No discrete pneumoth orax. Endotracheal tube appear stable. Enteric tube is not well visualized.
[2024-01-31 06:10] LABS: Base Excess 4.4 mmol/L (-2.0-3.0)
[2024-01-31] MEDS: QUEtiapine FUMARATE 25 MG TAB PO SCH (11:10)
--- NOTE | 2024-01-31 11:40 | DVHPN2 ---
Progress Note - Dictate Date Seen: Jan 31, 2024 Medical Necessity Reason Pt with a Central, PICC or Fol: Yes The following are medically ne: Reyes Catheter Reason for reyes catheter: Strict I&O vital signs Vital Sign Date Time Temp Pulse Resp B/P (MAP) Pulse Ox O2 Delivery O2 Flow Rate FiO2 01/31/24 11:31 104/47 01/31/24 10:00 45 01/31/24 10:00 73 01/31/24 10:00 29 95 Mechanical Ventilator+ 01/31/24 08:05 100.0 100.0 Total Intake and Output 01/30/24 01/30/24 01/31/24 15:00 23:00 07:00 Intake Total 1002.300 ml 1032.721 ml 1869.425 ml Output Total 2800 ml 650 ml Balance 1002.300 ml -1767.279 ml 1219.425 ml medications Current Medications Medications Dose Ordered Sig/Reji Route Start Time Stop Time Status Last Admin Dose Admin Ondansetron HCl 4 mg Q4HP PRN IV 01/19/24 20:15 Pantoprazole Sodium 40 mg DAILY IV 01/20/24 10:00 01/31/24 09:21 40 MG Nitroglycerin 0.4 mg Q5MINP PRN SL 01/19/24 20:15 Midazolam HCl 50 ml @ 1 mls/hr Q24H IV 01/19/24 21:30 01/31/24 09:19 15 MLS/HR Aspirin 81 mg DAILY NG 01/20/24 10:00 01/31/24 09:22 81 MG Atorvastatin Calcium 40 mg HS PO 01/20/24 22:00 01/30/24 22:00 40 MG Enoxaparin Sodium 150 mg Q12HR SC 01/20/24 10:00 01/31/24 09:23 150 MG Latanoprost 1 drop QPM EACHEYE 01/20/24 18:00 01/30/24 17:34 1 DROP Patient Own Medication 400 mg MONTHLY IM 01/20/24 11:30 Lisinopril 20 mg DAILY PO 01/20/24 11:30 01/31/24 09:23 20 MG Nitroglycerin 250 ml @ 1.5 mls/hr Q24H IV 01/20/24 20:30 Albuterol 2.5 mg Q4HR NEB 01/20/24 22:00 01/31/24 09:28 2.5 MG Ipratropium [place] 0.5 mg Q4HR NEB 01/20/24 22:00 01/31/24 09:28 0.5 MG Doxycycline Hyclate 250 ml @ 125 mls/hr Q12H IV 01/21/24 14:30 01/31/24 02:03 125 MLS/HR Enteral Nutritional Formula 1,000 ml 60ML/HR GT 01/22/24 14:00 01/29/24 03:25 1,000 ML Purified Water 100 ml Q6HR GT 01/22/24 18:00 01/31/24 11:13 100 ML Methylprednisolone Sodium Succinate 60 mg Q4HR IV 01/24/24 16:00 01/31/24 09:21 60 MG Rocuronium [place] 1000 mg/ Dextrose 250 ml @ 20.832 mls/ hr Q12H1M IV 01/24/24 17:30 01/30/24 20:24 6.25 MLS/HR Norepinephrine Bitartrate 250 ml @ 3.75 mls/hr Q24H IV 01/24/24 18:30 01/31/24 04:07 3.75 MLS/HR Propofol 100 ml @ 5.046 mls/ hr [id number] IV 01/26/24 22:30 01/31/24 11:31 40.368 MLS/HR Furosemide 40 mg DAILY IV 01/27/24 10:00 01/31/24 09:21 40 MG Vancomycin HCl 300 ml @ 200 mls/hr Q8H IV 01/28/24 02:00 Cancel Linezolid 300 ml @ 150 mls/hr Q12HR IV 01/28/24 22:00 01/31/24 09:22 150 MLS/HR Metoclopramide HCl 10 mg Q8HR IV 01/28/24 14:00 01/31/24 05:21 10 MG Docusate Sodium 100 mg BID GT 01/28/24 22:00 01/31/24 09:20 100 MG Fentanyl Citrate 250 ml @ 2.5 mls/hr Q24H IV 01/29/24 04:00 01/31/24 11:10 35 MLS/HR Hydralazine HCl 10 mg Q6HP PRN IV 01/30/24 13:15 Acetaminophen 650 mg Q4HP PRN PO 12/21/24 07:30 Quetiapine Fumarate 50 mg BID PO 01/31/24 10:00 01/31/24 11:10 50 MG laboratory and microbiology Laboratory Tests 01/31/24 03:18 Test 01/31/24 03:18 Range/Units Serum Glucose 170 H 74-106 mg/dL Assessment/Plan Patient is 28 year old morbidly obese male who presented to ED with shortness of breath. He has been intubated for respiratory failure and in on vent. support. Information was obtained by reviewing the chart and communicating with staff. Cardiology is involved for cardiac aspects of care. There is no report of chest pain prior to presentation. 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 Intubated and on vent support. Morbidly obese. Does have right sided subclavian access. No JVD. Mucosa is pink and wet. No goiter. Scattered rhonchi is heard. Cardiac: RR, no thrill, no gallop. Abdomen is soft, obese and distended. BS is +. Ext reveal 2+ edema bilaterally. DP is 2+ bilateral PMH reportedly includes Morbid obesity, Asthma (with previous intubations), Autism, Schizophrenia and ANNETTE. Smokes Marijuana and drinks alcohol WBC: 11.6 to 11.2 to 14.2 to 12.2 to 13.3 to 16.4 to 17.5 to 15.3 to 13.8 to 15.7 to 13.8 - 22.2 D-dimer: 0.43 (wnl) Creat: 0.73 - 0.70 - 0.67 - 0.76 - 0.71 - 0.70 - 0.69 - 0.59 - 0.60 - 0.52 - 0.50 - 0.47 - 0.47 - 0.62 K: 4.1 - 4.3 - 4.1 - 4.2 - 4.0 - 4.1 - 4.1 - 3.9 - 4.0 - 3.8 - 4.3 - 4.7 BNP: 561.97 - 173.31 Trop (high sensitive): 61 - 62 - 131 - 132 - 91 - 82 TSH: 0.48 Urine toxicology was positive for Cannabinoids and Benzodiazpin Chest xry revealed: FINDINGS: Lines and Tubes: None Lungs: Obscuration of the left hemidiaphragm Diffuse interstitial prominence. No pneumothorax. Cardiomediastinal contours: Moderate cardiomegaly Bones: No acute osseous abnormality. IMPRESSION: Moderate cardiomegaly with findings suggestive of congestive heart failure. Possible left-sided pleural effusion. Repeat chest xry revealed: Endotracheal tube projects terminating 1.8 cm superior to the zbigniew. Enteric tube is projecting below the GE junction without visualization of the port or tip. Low lung volumes with bronchovascular crowding. Possible small left-sided pleural effusion and/or atelectasis. No pneumothorax. Repeat chest xry revealed: Cardiomediastinal silhouette is enlarged. There is increased pulmonary vascular congestion, similar prior examination. Obscuration of the left hemidiaphragm may be on the basis of technique versus small pleural effusion. No discrete pneumothorax. Endotracheal tube and enteric tube are redemonstrated. Left IJ catheter tip is likely at the region of the brachiocephalic vein. Repeat chest xry revealed: FINDINGS: Cardiomediastinal silhouette is enlarged. There is increased pulmonary vascular congestion, similar prior examination. Obscuration of the left hemidiaphragm may be on the basis of technique versus small pleural effusion. No discrete pneumothorax. Endotracheal tube and enteric tube are redemonstrated. Left IJ catheter tip is likely at the region of the brachiocephalic vein. IMPRESSION: NO INTERVAL CHANGE. Repeat chest xry revealed: IMPRESSION: Improving pulmonary edema compared to prior exam. Repeat chest xry revealed: IMPRESSION: stable pulmonary edema compared to prior exam. Repeat chest xry revealed: IMPRESSION: Lines and tubes in satisfactory position. No significant interval change. Repeat chest xry revealed: IMPRESSION: Lines and tubes in satisfactory position. No significant interval change. Repeat chest xry revealed: IMPRESSION: Lines and tubes in satisfactory position. No significant interval change. Repeat chest xry: IMPRESSION: 1. Stable position of the support lines and tubes. 2. No significant change in diffuse bilateral airspace opacities. Repeat chest xry revealed: IMPRESSION: 1. Endotracheal tube terminates 6.4 symbol the zbigniew. 2. Bilateral airspace disease unchanged. Repeat chest xry revealed: IMPRESSION: 1. Endotracheal tube 4.1 cm above the zbigniew. 2. OG tube not visualized AND may BE IN THE RIGHT MAINSTEM BRONCHUS RECOMMEND REMOVAL AND REPOSITIONING WITH REPEAT CHEST X-RAY. Repeat chest xry revealed: FINDINGS: Endotracheal tube in place 4.4 cm above the zbigniew. Left internal jugular catheter in place in the superior vena cava. Cardiomegaly is noted with pulmonary vascular congestion findings may represent congestive failure other possibility such as pneumonia are in the differential. IMPRESSION: 1. Cardiomegaly with findings of pulmonary vascular congestion. Findings may represent congestive failure or pneumonia. Repeat chest xry revealed: Lines and Tubes: The endotracheal tube terminates 3.1 cm above the zbigniew. Left central venous catheter terminates in the superior vena cava. Enteric tube is visualized to the mid chest but not visualized below the left hemidiaphragm. Lungs: Bilateral airspace disease. Pleura: No effusion. No pneumothorax. Cardiomediastinal contours: Stable cardiomegaly. Bones: No acute osseous abnormality. IMPRESSION: 1. Enteric tube not visualized below the left hemidiaphragm. 2. Bilateral airspace disease similar to prior exam. Repeat chest xry revealed: Limited evaluation given patient positioning. The heart appears markedly enlarged. There are low lung volumes with moderate alveolar airspace opacities suggesting pulmonary edema. No discrete pneumothorax. Endotracheal tube appear stable. Enteric tube is not well visualized. KUB revealed: Impression: 1. Nonobstructive bowel gas pattern. 2. Enteric tube overlying the plane of the stomach. 3. No visualized renal calculi. Venous duplex of lower ext revealed: Impression: 1. No right or left femoropopliteal venous thrombosis. 2. Left common femoral vein and proximal superficial femoral vein are not visible and therefore thrombus can not be excluded in those areas. EKG revealed: Sinus tachycardia with non-specific STT changes Tele reveals Sinus rhythm Echocardiogram revealed: Technically limited study secondary to poor acoustic windows. Left ventricle: Left ventricle was normal-sized with normal systolic function. LVEF was 60-65%. There was no gross wall motion abnormality observed. Right ventricle was not well visualized but it was dilated. Left atrium was normal-sized. Right atrium was not well visualized. Aortic valve was trileaflet and normal. There was no aortic insufficiency/stenosis. There was trivial mitral and tricuspid regurgitation. There was mild pulmonary valve insufficiency. As there was no good tricuspid regurgitation jet, right ventricular systolic pressure could not be estimated. There was no pericardial effusion. Patient is 28 year old male with history of morbid obesity who presented with respiratory failure. Does have history of Asthma and reportedly has been intubated for it before. Trop has been mildly elevated. ACS is less likely and increase in troponin most likely represents demand physiology. Still, component of type 1 physiology cannot be completely ruled out. Echo revealed dilated RV. As there was no good TR jet, RVSP could not be estimated. Pulmonary Hypertension cannot be ruled out. Pulmonary on board. On sedation Acute respiratory failure Asthma Asthma exacerbation Morbid obesity Abnormal trop Questionable heart failure, acute Cardiac suggestion for management: Manage in ICU IV diuresis Follow up electrolytes and kidney function test and correct abnormalities. Keep potassium above 4 and magnesium above 2 Lovenox ASA Follow up vital signs and correct hyper/hypotension. If needed add pressure support to keep MAP above 65 mmHg Pulmonary follow up Further evaluation and management depends on the above and clinical course A total of 75 minutes was spent reviewing the patient record, examining the patient, making a diagnostic and therapeutic plan, discussing this plan with medical personnel, following up on diagnostic studies and following the patient for clinical stability excluding any and all procedures. At least 50% of this time was spent in direct, [id number] contact. Thank you for allowing me to participate in this patient's care. Further recommendations will depend on patient's clinical course. Please do not hesitate to contact me if you have any questions or concerns. This medical document was created using electronic medical record system with [employer] computerized dictation system. Although this document has been carefully reviewed, there may still be some phonetic and typographical errors. These areas are purely typographical due to the imperfection of the software programs, and do not reflect any compromise in the patient's medical care. Dietary Evaluation Review Comments: Current Jevity 1.2 @60ml/hr TF is meeting pt's need for protein at 60% for energy at 117% Continue monitor nutrition progress of nutrition support to meet 75% of his needs. Advance to a cardiac diet, texture as tolerated when medically feasible. Expected Outcomes/Goals: gradual weight loss Plan discussed with: Other (nurse) PARRIS MCKINNON MD Jan 31, 2024 11:40
--- NOTE | 2024-01-31 16:51 | DVHPN2 ---
Progress Note Date Seen: Jan 31, 2024 Medical Necessity Reason Pt with a Central, PICC or Fol: Yes The following are medically ne: Reyes Catheter Reason for reyes catheter: Strict I&O Subjective Review of Systems: Not Done (Unable to obtain due to being on mechanical ventilator) Objective vital signs Vital Sign Date Time Temp Pulse Resp B/P (MAP) Pulse Ox O2 Delivery O2 Flow Rate FiO2 01/31/24 16:20 63 27 123/62 (82) 95 01/31/24 16:05 99.0 99.0 01/31/24 16:00 45 01/31/24 16:00 Mechanical Ventilator+ Total Intake and Output 01/30/24 01/30/24 01/31/24 15:00 23:00 07:00 Intake Total 1002.300 ml 1032.721 ml 1869.425 ml Output Total 2800 ml 650 ml Balance 1002.300 ml -1767.279 ml 1219.425 ml medications Current Medications Medications Dose Ordered Sig/Reji Route Start Time Stop Time Status Last Admin Dose Admin Ondansetron HCl 4 mg Q4HP PRN IV 01/19/24 20:15 Pantoprazole Sodium 40 mg DAILY IV 01/20/24 10:00 01/31/24 09:21 40 MG Nitroglycerin 0.4 mg Q5MINP PRN SL 01/19/24 20:15 Midazolam HCl 50 ml @ 1 mls/hr Q24H IV 01/19/24 21:30 01/31/24 15:47 15 MLS/HR Aspirin 81 mg DAILY NG 01/20/24 10:00 01/31/24 09:22 81 MG Atorvastatin Calcium 40 mg HS PO 01/20/24 22:00 01/30/24 22:00 40 MG Latanoprost 1 drop QPM EACHEYE 01/20/24 18:00 01/30/24 17:34 1 DROP Patient Own Medication 400 mg MONTHLY IM 01/20/24 11:30 Lisinopril 20 mg DAILY PO 01/20/24 11:30 01/31/24 09:23 20 MG Nitroglycerin 250 ml @ 1.5 mls/hr Q24H IV 01/20/24 20:30 Albuterol 2.5 mg Q4HR NEB 01/20/24 22:00 01/31/24 14:17 2.5 MG Ipratropium [place] 0.5 mg Q4HR NEB 01/20/24 22:00 01/31/24 14:17 0.5 MG Doxycycline Hyclate 250 ml @ 125 mls/hr Q12H IV 01/21/24 14:30 01/31/24 14:03 125 MLS/HR Enteral Nutritional Formula 1,000 ml 60ML/HR GT 01/22/24 14:00 01/29/24 03:25 1,000 ML Purified Water 100 ml Q6HR GT 01/22/24 18:00 01/31/24 11:13 100 ML Methylprednisolone Sodium Succinate 60 mg Q4HR IV 01/24/24 16:00 01/31/24 13:57 60 MG Rocuronium [place] 1000 mg/ Dextrose 250 ml @ 20.832 mls/ hr Q12H1M IV 01/24/24 17:30 01/30/24 20:24 6.25 MLS/HR Norepinephrine Bitartrate 250 ml @ 3.75 mls/hr Q24H IV 01/24/24 18:30 01/31/24 04:07 3.75 MLS/HR Propofol 100 ml @ 5.046 mls/ hr [id number] IV 01/26/24 22:30 01/31/24 16:07 40.368 MLS/HR Furosemide 40 mg DAILY IV 01/27/24 10:00 01/31/24 09:21 40 MG Vancomycin HCl 300 ml @ 200 mls/hr Q8H IV 01/28/24 02:00 Cancel Linezolid 300 ml @ 150 mls/hr Q12HR IV 01/28/24 22:00 01/31/24 09:22 150 MLS/HR Metoclopramide HCl 10 mg Q8HR IV 01/28/24 14:00 01/31/24 13:57 10 MG Docusate Sodium 100 mg BID GT 01/28/24 22:00 01/31/24 09:20 100 MG Fentanyl Citrate 250 ml @ 2.5 mls/hr Q24H IV 01/29/24 04:00 01/31/24 16:13 35 MLS/HR Hydralazine HCl 10 mg Q6HP PRN IV 01/30/24 13:15 Acetaminophen 650 mg Q4HP PRN PO 01/31/24 07:30 Quetiapine Fumarate 50 mg BID PO 01/31/24 10:00 01/31/24 11:10 50 MG Examination: GENERAL:Normal, LUNGS:Abnormal (Diminished on ventilator), CVS:Normal, ABDOMEN:Normal, SKIN:Normal laboratory and microbiology Laboratory Tests 01/31/24 03:18 Test 01/31/24 03:18 Range/Units Serum Glucose 170 H 74-106 mg/dL Microbiology Date/Time Source Procedure Growth Status 01/22/24 23:08 Blood Blood Culture - Final NO GROWTH AFTER 5 DAYS OF INCUBATION. Complete 01/21/24 18:24 Nose MRSA Screen - Final Complete 01/19/24 21:00 Sputum Gram Stain - Final Complete 01/19/24 21:00 Sputum Respiratory Culture - Final Complete Labs and/or images reviewed: Labs reviewed by me, Image(s) reviewed by me Problem List/Assessment/Plan Problem List/Assessment/Plan 1. Asthma with acute exacerbation Pulmonary consult, monitoring 2. Acute hypoxic respiratory failure requiring intubation Pulmonary Consult 3. Schizophrenia Monitoring 4. Autism Medication, monitoring 5. Elevated Troponin Cardiology Consult, monitoring 6. Cannabis Use Education Assessment/Plan Subjective: Patient remains on the ventilator on a paralytic. Objective: Patient was emergently intubated on January 19, 2024, for acute hypoxic respiratory failure due to asthma exacerbation and likely underlying pneumonia. FiO2 is currently 45%, and PEEP was increased to 10 today. Stool was positive for occult blood, though hemoglobin and platelet counts are stable. Patient previously had nosebleed which has now been controlled with rhino rocket. Okay to resume Lovenox for DVT prophylaxis. Nurses have some concerns with OG tube placement KUB confirmed placement. Patient was started on OG tube feedings and is tolerating. Patient was having fevers throughout the night, blood culture was positive for Staphylococcus epidermis patient was placed on IV Zyvox. Plan: Continue current treatment. Manage ventilator settings per pulmonary recommendations. Continue IV antibiotics. Continue with IV Zyvox, awaiting blood cultures, titrate off of paralytics. Okay to use OG tube Plan discussed with: Patient My Orders My Orders Orders - ANAIS [employer] SERVICING REPRESENTATIVE Procedure Category Date Status Time Acetaminophen Tablet PHA 01/31/24 In Process (Tylenol Tablet) 07:30 Dietary Evaluation Review Comments: Current Jevity 1.2 @60ml/hr TF is meeting pt's need for protein at 60% for energy at 117% Continue monitor nutrition progress of nutrition support to meet 75% of his needs. Advance to a cardiac diet, texture as tolerated when medically feasible. Expected Outcomes/Goals: gradual weight loss Date of Service: Jan 31, 2024 Billing Provider: LAKE VILLAGRAN MD Common Visit Codes: 64015-[id number] INP/OBS CARE (MOD) ANAIS [employer] SERVICING REPRESENTATIVE Jan 31, 2024 16:51
--- NOTE | 2024-01-31 17:31 | DVHPN2 ---
Progress Note - Dictate Date Seen: Jan 31, 2024 Medical Necessity Reason Pt with a Central, PICC or Fol: Yes The following are medically ne: Reyes Catheter Reason for reyes catheter: Strict I&O Subjective Patient seen and examined at bedside. Sedated, intubated on mechanical ventilator. Overnight events reviewed. vital signs Vital Sign Date Time Temp Pulse Resp B/P (MAP) Pulse Ox O2 Delivery O2 Flow Rate FiO2 01/31/24 16:20 63 27 123/62 (82) 95 01/31/24 16:05 99.0 99.0 01/31/24 16:00 45 01/31/24 16:00 Mechanical Ventilator+ Total Intake and Output 01/30/24 01/30/24 01/31/24 15:00 23:00 07:00 Intake Total 1002.300 ml 1032.721 ml 1869.425 ml Output Total 2800 ml 650 ml Balance 1002.300 ml -1767.279 ml 1219.425 ml medications Current Medications Medications Dose Ordered Sig/Reji Route Start Time Stop Time Status Last Admin Dose Admin Ondansetron HCl 4 mg Q4HP PRN IV 01/19/24 20:15 Pantoprazole Sodium 40 mg DAILY IV 01/20/24 10:00 01/31/24 09:21 40 MG Nitroglycerin 0.4 mg Q5MINP PRN SL 01/19/24 20:15 Midazolam HCl 50 ml @ 1 mls/hr Q24H IV 01/19/24 21:30 01/31/24 15:47 15 MLS/HR Aspirin 81 mg DAILY NG 01/20/24 10:00 01/31/24 09:22 81 MG Atorvastatin Calcium 40 mg HS PO 01/20/24 22:00 01/30/24 22:00 40 MG Latanoprost 1 drop QPM EACHEYE 01/20/24 18:00 01/31/24 17:13 1 DROP Patient Own Medication 400 mg MONTHLY IM 01/20/24 11:30 Lisinopril 20 mg DAILY PO 01/20/24 11:30 01/31/24 09:23 20 MG Nitroglycerin 250 ml @ 1.5 mls/hr Q24H IV 01/20/24 20:30 Albuterol 2.5 mg Q4HR NEB 01/20/24 22:00 01/31/24 14:17 2.5 MG Ipratropium [place] 0.5 mg Q4HR NEB 01/20/24 22:00 01/31/24 14:17 0.5 MG Doxycycline Hyclate 250 ml @ 125 mls/hr Q12H IV 01/21/24 14:30 01/31/24 14:03 125 MLS/HR Enteral Nutritional Formula 1,000 ml 60ML/HR GT 01/22/24 14:00 01/29/24 03:25 1,000 ML Purified Water 100 ml Q6HR GT 01/22/24 18:00 01/31/24 17:18 100 ML Methylprednisolone Sodium Succinate 60 mg Q4HR IV 01/24/24 16:00 01/31/24 17:17 60 MG Rocuronium [place] 1000 mg/ Dextrose 250 ml @ 20.832 mls/ hr Q12H1M IV 01/24/24 17:30 01/30/24 20:24 6.25 MLS/HR Norepinephrine Bitartrate 250 ml @ 3.75 mls/hr Q24H IV 01/24/24 18:30 01/31/24 04:07 3.75 MLS/HR Propofol 100 ml @ 5.046 mls/ hr [id number] IV 01/26/24 22:30 01/31/24 16:07 40.368 MLS/HR Furosemide 40 mg DAILY IV 01/27/24 10:00 01/31/24 09:21 40 MG Vancomycin HCl 300 ml @ 200 mls/hr Q8H IV 01/28/24 02:00 Cancel Linezolid 300 ml @ 150 mls/hr Q12HR IV 01/28/24 22:00 01/31/24 09:22 150 MLS/HR Metoclopramide HCl 10 mg Q8HR IV 01/28/24 14:00 01/31/24 13:57 10 MG Docusate Sodium 100 mg BID GT 01/28/24 22:00 01/31/24 09:20 100 MG Fentanyl Citrate 250 ml @ 2.5 mls/hr Q24H IV 01/29/24 04:00 01/31/24 16:13 35 MLS/HR Hydralazine HCl 10 mg Q6HP PRN IV 01/30/24 13:15 Acetaminophen 650 mg Q4HP PRN PO 01/31/24 07:30 Quetiapine Fumarate 50 mg BID PO 01/31/24 10:00 01/31/24 11:10 50 MG objective Gen.: Patient lying in bed in medical ICU. Sedated, intubated on mechanical ventilator. Head: Normocephalic, atraumatic. Eyes: PERRLA. Ears: Normal external anatomy. Throat: Endotracheal tube and orogastric tube in place. Neck: Supple, trachea midline. Chest: Transmitted breath sounds bilaterally. Decreased air entry bilaterally. No wheezing. Bibasilar crackles. Cardiovascular: Positive S1, positive S2. Regular rate and rhythm. Abdomen: Positive bowel sounds in all 4 quadrants. Soft, nontender, nondistended. : Reyes in place. Normal external genitalia. Rectal: Deferred. Skin: Warm, dry. Intact. Extremities: 2+ radial pulses bilaterally. No lower extremity edema. Neuro: Sedated. laboratory and microbiology Laboratory Tests 01/31/24 03:18 Test 01/31/24 03:18 Range/Units Serum Glucose 170 H 74-106 mg/dL Assessment/Plan Impression: Acute hypoxic respiratory failure On mechanical ventilator Acute exacerbation of asthma Elevated Troponin Schizophrenia Autism Cannabinoid Use Morbid obesity BMI 60.5 Pulmonary edema Events: Remains on vent support On AC mode with RR 28, VT 500, PEEP 8, FiO2 50% Leukocytosis with WBC 13 --> 22 K Patient with fever. Increased ET tube secretions - may need bronchoscopy Pancultures Taper rocuronium.drip. Recommend trach/PEG to liberate from vent. Seroquel 50 mg q.12 hours. Sedated on Propofol, Versed, Fentanyl On pressors for hemodynamic support Levophed 2 mcg/min Titrate to keep mean arterial pressure greater than 65 mmHg. ABG reviewed, compensated. Continue bronchodilators IV steroids Continue antibiotics Tube feeds for nutritional support Diurese w/ Lasix QD Monitor renal function Monitor electrolytes. Supplement as necessary. Monitor ins and outs. Labs and imaging reviewed. Rest of plan as noted below. Plan: s/p intubation on mechanical ventilator. On AC mode with RR 28, VT 500, PEEP 8, FiO2 50% Titrate FIO2 to keep O2 saturation above 90%. VAP bundle. Daily ABG and CXR while intubated Sedate for ventilator synchrony Pt does not tolerate turns. Derecruitment. Turn carefully. Elevated Troponin - Cardiology recs appreciated. Continue bronchodilators Antibiotics. F/u cultures. On pressors for hemodynamic support Titrate to keep mean arterial pressure greater than 65 mmHg. Monitor renal function Monitor electrolytes. Supplement as necessary. Monitor ins and outs. Diet and lifestyle modifications for weight reduction Morbid obesity - complicates all care GI prophylaxis. DVT prophylaxis. Prognosis: Poor given patient's multiple co-morbidities. Condition: Critical Rest of plan per hospitalist and other consultants. A total of 35 minutes of critical care time was spent reviewing the patient record, examining the patient, making a diagnostic and therapeutic plan, discussing this plan with the medical personnel, following up on diagnostic studies and following the patient for clinical stability excluding any and all procedures. At least 50% of this time was spent in direct, [id number] contact. Thank you Irma Velasquez NP, for allowing me to participate in this patient's care. Further recommendations will depend on the patient's clinical course. Please do not hesitate to contact me if you have any questions or concerns. This medical document was created using an electronic medical record system with [employer] dictation system. Although these documentations are being carefully reviewed, there may still be some phonetic and typographical changes. The errors are purely typographical, due to imperfection on the software program, and do not reflect any compromise in the patient's medical care. Dietary Evaluation Review Comments: Current Jevity 1.2 @60ml/hr TF is meeting pt's need for protein at 60% for energy at 117% Continue monitor nutrition progress of nutrition support to meet 75% of his needs. Advance to a cardiac diet, texture as tolerated when medically feasible. Expected Outcomes/Goals: gradual weight loss Plan discussed with: Other (SAIGE Melchor) Critical Care Time(min): 35 VERÓNICA MERCER MD Jan 31, 2024 17:31
[2024-02-01] VITALS (117 sets, daily range): BP systolic 82–144; BP diastolic 40–83; PULSE 41–121; RESP 7–31; TEMP 99.1–100.2; O2SAT 67–100
[2024-02-01 07:14] LABS: Base Excess 6.6 mmol/L (-2.0-3.0)
--- NOTE | 2024-02-01 07:56 | DVH ---
CHEST RADIOGRAPH Indication: INTUBATED Technique: Single frontal view of the chest was obtained Comparison: XY CHEST PORTABLE on DOS: 01/31/24, XY CHEST PORTABLE on DOS: 01/30/24, XY CHEST PORTABLE on DOS: 01/29/24 IMPRESSION: Markedly limited evaluation given patient body habitus and technique. Endotracheal tube tip tip appea rs possibly at the level of the clavicles. Endotracheal tube tip is not visualized. The heart appear s enlarged. Overall pulmonary opacification has worsened in the interval likely relating to pulmonary edema versus pneumonia or ARDS. No discrete pneumothorax.
--- NOTE | 2024-02-01 07:56 | DVHPN2 ---
Progress Note - Dictate Date Seen: Feb 01, 2024 Medical Necessity Reason Pt with a Central, PICC or Fol: Yes The following are medically ne: Reyes Catheter Reason for reyes catheter: Strict I&O vital signs Vital Sign Date Time Temp Pulse Resp B/P (MAP) Pulse Ox O2 Delivery O2 Flow Rate FiO2 02/01/24 07:50 124/66 02/01/24 06:50 99.3 64 28 96 210.7 02/01/24 06:28 80 02/01/24 06:28 Mechanical Ventilator Total Intake and Output 01/31/24 01/31/24 02/01/24 15:00 23:00 07:00 Intake Total 1177.700 ml 1503.840 ml 1092.944 ml Output Total 1850 ml 2200 ml Balance 1177.700 ml -346.160 ml -1107.056 ml medications Current Medications Medications Dose Ordered Sig/Reji Route Start Time Stop Time Status Last Admin Dose Admin Ondansetron HCl 4 mg Q4HP PRN IV 01/19/24 20:15 Pantoprazole Sodium 40 mg DAILY IV 01/20/24 10:00 01/31/24 09:21 40 MG Nitroglycerin 0.4 mg Q5MINP PRN SL 01/19/24 20:15 Midazolam HCl 50 ml @ 1 mls/hr Q24H IV 01/19/24 21:30 02/01/24 06:06 15 MLS/HR Aspirin 81 mg DAILY NG 01/20/24 10:00 01/31/24 09:22 81 MG Atorvastatin Calcium 40 mg HS PO 01/20/24 22:00 01/31/24 21:07 40 MG Latanoprost 1 drop QPM EACHEYE 01/20/24 18:00 01/31/24 17:13 1 DROP Patient Own Medication 400 mg MONTHLY IM 01/20/24 11:30 Lisinopril 20 mg DAILY PO 01/20/24 11:30 01/31/24 09:23 20 MG Nitroglycerin 250 ml @ 1.5 mls/hr Q24H IV 01/20/24 20:30 Albuterol 2.5 mg Q4HR NEB 01/20/24 22:00 02/01/24 06:27 2.5 MG Ipratropium [place] 0.5 mg Q4HR NEB 01/20/24 22:00 02/01/24 06:27 0.5 MG Doxycycline Hyclate 250 ml @ 125 mls/hr Q12H IV 01/21/24 14:30 02/01/24 01:46 125 MLS/HR Enteral Nutritional Formula 1,000 ml 60ML/HR GT 01/22/24 14:00 01/31/24 20:27 1,000 ML Purified Water 100 ml Q6HR GT 01/22/24 18:00 02/01/24 06:05 100 ML Methylprednisolone Sodium Succinate 60 mg Q4HR IV 01/24/24 16:00 02/01/24 06:05 60 MG Rocuronium [place] 1000 mg/ Dextrose 250 ml @ 20.832 mls/ hr Q12H1M IV 01/24/24 17:30 01/30/24 20:24 6.25 MLS/HR Norepinephrine Bitartrate 250 ml @ 3.75 mls/hr Q24H IV 01/24/24 18:30 01/31/24 04:07 3.75 MLS/HR Propofol 100 ml @ 5.046 mls/ hr [id number] IV 01/26/24 22:30 02/01/24 06:06 40.368 MLS/HR Furosemide 40 mg DAILY IV 01/27/24 10:00 01/31/24 09:21 40 MG Vancomycin HCl 300 ml @ 200 mls/hr Q8H IV 01/28/24 02:00 Cancel Linezolid 300 ml @ 150 mls/hr Q12HR IV 01/28/24 22:00 01/31/24 21:07 150 MLS/HR Metoclopramide HCl 10 mg Q8HR IV 01/28/24 14:00 02/01/24 06:05 10 MG Docusate Sodium 100 mg BID GT 01/28/24 22:00 01/31/24 21:07 100 MG Fentanyl Citrate 250 ml @ 2.5 mls/hr Q24H IV 01/29/24 04:00 02/01/24 07:50 35 MLS/HR Hydralazine HCl 10 mg Q6HP PRN IV 01/30/24 13:15 Acetaminophen 650 mg Q4HP PRN PO 01/31/24 07:30 Quetiapine Fumarate 50 mg BID PO 01/31/24 10:00 01/31/24 21:08 50 MG laboratory and microbiology Laboratory Tests 01/31/24 03:18 Test 01/31/24 03:18 Range/Units Serum Glucose 170 H 74-106 mg/dL Assessment/Plan Patient is 28 year old morbidly obese male who presented to ED with shortness of breath. He has been intubated for respiratory failure and in on vent. support. Information was obtained by reviewing the chart and communicating with staff. Cardiology is involved for cardiac aspects of care. There is no report of chest pain prior to presentation. 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 Intubated and on vent support. Morbidly obese. Does have right sided subclavian access. No JVD. Mucosa is pink and wet. No goiter. Scattered rhonchi is heard. Cardiac: RR, no thrill, no gallop. Abdomen is soft, obese and distended. BS is +. Ext reveal 2+ edema bilaterally. DP is 2+ bilateral PMH reportedly includes Morbid obesity, Asthma (with previous intubations), Autism, Schizophrenia and ANNETTE. Smokes Marijuana and drinks alcohol WBC: 11.6 to 11.2 to 14.2 to 12.2 to 13.3 to 16.4 to 17.5 to 15.3 to 13.8 to 15.7 to 13.8 - 22.2 D-dimer: 0.43 (wnl) Creat: 0.73 - 0.70 - 0.67 - 0.76 - 0.71 - 0.70 - 0.69 - 0.59 - 0.60 - 0.52 - 0.50 - 0.47 - 0.47 - 0.62 K: 4.1 - 4.3 - 4.1 - 4.2 - 4.0 - 4.1 - 4.1 - 3.9 - 4.0 - 3.8 - 4.3 - 4.7 BNP: 561.97 - 173.31 Trop (high sensitive): 61 - 62 - 131 - 132 - 91 - 82 TSH: 0.48 Urine toxicology was positive for Cannabinoids and Benzodiazpin Chest xry revealed: FINDINGS: Lines and Tubes: None Lungs: Obscuration of the left hemidiaphragm Diffuse interstitial prominence. No pneumothorax. Cardiomediastinal contours: Moderate cardiomegaly Bones: No acute osseous abnormality. IMPRESSION: Moderate cardiomegaly with findings suggestive of congestive heart failure. Possible left-sided pleural effusion. Repeat chest xry revealed: Endotracheal tube projects terminating 1.8 cm superior to the zbigniew. Enteric tube is projecting below the GE junction without visualization of the port or tip. Low lung volumes with bronchovascular crowding. Possible small left-sided pleural effusion and/or atelectasis. No pneumothorax. Repeat chest xry revealed: Cardiomediastinal silhouette is enlarged. There is increased pulmonary vascular congestion, similar prior examination. Obscuration of the left hemidiaphragm may be on the basis of technique versus small pleural effusion. No discrete pneumothorax. Endotracheal tube and enteric tube are redemonstrated. Left IJ catheter tip is likely at the region of the brachiocephalic vein. Repeat chest xry revealed: FINDINGS: Cardiomediastinal silhouette is enlarged. There is increased pulmonary vascular congestion, similar prior examination. Obscuration of the left hemidiaphragm may be on the basis of technique versus small pleural effusion. No discrete pneumothorax. Endotracheal tube and enteric tube are redemonstrated. Left IJ catheter tip is likely at the region of the brachiocephalic vein. IMPRESSION: NO INTERVAL CHANGE. Repeat chest xry revealed: IMPRESSION: Improving pulmonary edema compared to prior exam. Repeat chest xry revealed: IMPRESSION: stable pulmonary edema compared to prior exam. Repeat chest xry revealed: IMPRESSION: Lines and tubes in satisfactory position. No significant interval change. Repeat chest xry revealed: IMPRESSION: Lines and tubes in satisfactory position. No significant interval change. Repeat chest xry revealed: IMPRESSION: Lines and tubes in satisfactory position. No significant interval change. Repeat chest xry: IMPRESSION: 1. Stable position of the support lines and tubes. 2. No significant change in diffuse bilateral airspace opacities. Repeat chest xry revealed: IMPRESSION: 1. Endotracheal tube terminates 6.4 symbol the zbigniew. 2. Bilateral airspace disease unchanged. Repeat chest xry revealed: IMPRESSION: 1. Endotracheal tube 4.1 cm above the zbigniew. 2. OG tube not visualized AND may BE IN THE RIGHT MAINSTEM BRONCHUS RECOMMEND REMOVAL AND REPOSITIONING WITH REPEAT CHEST X-RAY. Repeat chest xry revealed: FINDINGS: Endotracheal tube in place 4.4 cm above the zbigniew. Left internal jugular catheter in place in the superior vena cava. Cardiomegaly is noted with pulmonary vascular congestion findings may represent congestive failure other possibility such as pneumonia are in the differential. IMPRESSION: 1. Cardiomegaly with findings of pulmonary vascular congestion. Findings may represent congestive failure or pneumonia. Repeat chest xry revealed: Lines and Tubes: The endotracheal tube terminates 3.1 cm above the bzigniew. Left central venous catheter terminates in the superior vena cava. Enteric tube is visualized to the mid chest but not visualized below the left hemidiaphragm. Lungs: Bilateral airspace disease. Pleura: No effusion. No pneumothorax. Cardiomediastinal contours: Stable cardiomegaly. Bones: No acute osseous abnormality. IMPRESSION: 1. Enteric tube not visualized below the left hemidiaphragm. 2. Bilateral airspace disease similar to prior exam. Repeat chest xry revealed: Limited evaluation given patient positioning. The heart appears markedly enlarged. There are low lung volumes with moderate alveolar airspace opacities suggesting pulmonary edema. No discrete pneumothorax. Endotracheal tube appear stable. Enteric tube is not well visualized. KUB revealed: Impression: 1. Nonobstructive bowel gas pattern. 2. Enteric tube overlying the plane of the stomach. 3. No visualized renal calculi. Venous duplex of lower ext revealed: Impression: 1. No right or left femoropopliteal venous thrombosis. 2. Left common femoral vein and proximal superficial femoral vein are not visible and therefore thrombus can not be excluded in those areas. EKG revealed: Sinus tachycardia with non-specific STT changes Tele reveals Sinus rhythm Echocardiogram revealed: Technically limited study secondary to poor acoustic windows. Left ventricle: Left ventricle was normal-sized with normal systolic function. LVEF was 60-65%. There was no gross wall motion abnormality observed. Right ventricle was not well visualized but it was dilated. Left atrium was normal-sized. Right atrium was not well visualized. Aortic valve was trileaflet and normal. There was no aortic insufficiency/stenosis. There was trivial mitral and tricuspid regurgitation. There was mild pulmonary valve insufficiency. As there was no good tricuspid regurgitation jet, right ventricular systolic pressure could not be estimated. There was no pericardial effusion. Patient is 28 year old male with history of morbid obesity who presented with respiratory failure. Does have history of Asthma and reportedly has been intubated for it before. Trop has been mildly elevated. ACS is less likely and increase in troponin most likely represents demand physiology. Still, component of type 1 physiology cannot be completely ruled out. Echo revealed dilated RV. As there was no good TR jet, RVSP could not be estimated. Pulmonary Hypertension cannot be ruled out. Pulmonary on board. On sedation Acute respiratory failure Asthma Asthma exacerbation Morbid obesity Abnormal trop Questionable heart failure, acute Cardiac suggestion for management: Manage in ICU IV diuresis Follow up electrolytes and kidney function test and correct abnormalities. Keep potassium above 4 and magnesium above 2 Lovenox ASA Follow up vital signs and correct hyper/hypotension. If needed add pressure support to keep MAP above 65 mmHg Pulmonary follow up Further evaluation and management depends on the above and clinical course A total of 75 minutes was spent reviewing the patient record, examining the patient, making a diagnostic and therapeutic plan, discussing this plan with medical personnel, following up on diagnostic studies and following the patient for clinical stability excluding any and all procedures. At least 50% of this time was spent in direct, [id number] contact. Thank you for allowing me to participate in this patient's care. Further recommendations will depend on patient's clinical course. Please do not hesitate to contact me if you have any questions or concerns. This medical document was created using electronic medical record system with [employer] computerized dictation system. Although this document has been carefully reviewed, there may still be some phonetic and typographical errors. These areas are purely typographical due to the imperfection of the software programs, and do not reflect any compromise in the patient's medical care. Dietary Evaluation Review Comments: Current Jevity 1.2 @60ml/hr TF is meeting pt's need for protein at 60% for energy at 117% Continue monitor nutrition progress of nutrition support to meet 75% of his needs. Advance to a cardiac diet, texture as tolerated when medically feasible. Expected Outcomes/Goals: gradual weight loss Plan discussed with: Other (nurse) PARRIS MCKINNON MD Feb 01, 2024 07:56
[2024-02-01 10:08] LABS: Basophils # (auto) 0.1 10 ^3/uL (0-0.2); Basophils % (auto) 0.4 % (0.0-2.0); Eosinophils # (auto) 0 10 ^3/uL (0-0.8); Eosinophils % (auto) 0.1 % (0.0-7.0); Hematocrit 39.3 % (41.0-53.0); Lymphocytes # (auto) 0.3 10 ^3/uL (0.4-5.4); Lymphocytes % (auto) 1.3 % (10.0-50.0); Mean Corpuscular Hgb Conc. 30.4 g/dL (32.0-36.0); Mean Corpuscular Volume 72.4 fL (80.0-100.0); Monocytes # (auto) 0.9 10 ^3/uL (0-1.3); Monocytes % (auto) 4.2 % (0.0-12.0); Neutrophils # (auto) 20.9 10 ^3/uL (1.6-8.6); Platelet Count (auto) 156 10^3/uL (140-450); Red Blood Cells 5.44 10^6/uL (4.5-5.90); Red Cell Distribution Width 19.2 % (11.8-14.3); White Blood Cell 22.3 10^3/uL (4.4-10.8)
[2024-02-01 10:15] LABS: Alkaline Phosphatase 86 U/L (46-116); Anion Gap 4 (5-15); Aspartate Aminotransferase 24 U/L (13-40); BUN/Creatinine Ratio 35.7 (10.0-20.0); Blood Urea Nitrogen 15 mg/dL (9-23); Calcium 8.8 mg/dL (8.7-10.4); Chloride 102 mmol/L (98-107); Magnesium 2.2 mg/dL (1.6-2.6); Potassium 4.4 mmol/L (3.5-5.1); Sodium 139 mmol/L (136-145)
[2024-02-01 11:13] LABS: Alanine Aminotransferase 66 U/L (7-40); Albumin 3.1 g/dL (3.2-4.8); Bilirubin, Total 1.6 mg/dL (0.2-1.0); Carbon Dioxide 33 mmol/L (20-31); Glucose 210 mg/dL (74-106); Total Protein 5.5 g/dL (5.7-8.2)
[2024-02-01] MEDS: PIPERACILLIN-TAZOB 3.375GM 100 ML IV SCH (12:20)
[2024-02-01] MEDS: ACETAMINOPHEN 325 MG TAB PO PRN (12:21)
[2024-02-01] MEDS ORDERED: PIPERACILLIN-TAZOB 3.375GM 100 ML IV SCH (14:00)
--- NOTE | 2024-02-01 15:02 | DVHPN2 ---
Progress Note Date Seen: Feb 01, 2024 Medical Necessity Reason Pt with a Central, PICC or Fol: Yes The following are medically ne: Reyes Catheter Reason for reyes catheter: Strict I&O Subjective Review of Systems: Not Done (Unable to obtain due to mechanical ventilator) Objective vital signs Vital Sign Date Time Temp Pulse Resp B/P (MAP) Pulse Ox O2 Delivery O2 Flow Rate FiO2 02/01/24 14:38 80 28 98 02/01/24 14:35 99.7 131/71 (91) 211.5 02/01/24 14:27 80 02/01/24 14:00 Mechanical Ventilator+ Total Intake and Output 01/31/24 01/31/24 02/01/24 15:00 23:00 07:00 Intake Total 1177.700 ml 1503.840 ml 1092.944 ml Output Total 1850 ml 2200 ml Balance 1177.700 ml -346.160 ml -1107.056 ml medications Current Medications Medications Dose Ordered Sig/Reji Route Start Time Stop Time Status Last Admin Dose Admin Ondansetron HCl 4 mg Q4HP PRN IV 01/19/24 20:15 Pantoprazole Sodium 40 mg DAILY IV 01/20/24 10:00 02/01/24 09:35 40 MG Nitroglycerin 0.4 mg Q5MINP PRN SL 01/19/24 20:15 Midazolam HCl 50 ml @ 1 mls/hr Q24H IV 01/19/24 21:30 02/01/24 12:44 15 MLS/HR Aspirin 81 mg DAILY NG 01/20/24 10:00 02/01/24 09:34 81 MG Atorvastatin Calcium 40 mg HS PO 01/20/24 22:00 01/31/24 21:07 40 MG Latanoprost 1 drop QPM EACHEYE 01/20/24 18:00 01/31/24 17:13 1 DROP Patient Own Medication 400 mg MONTHLY IM 01/20/24 11:30 Lisinopril 20 mg DAILY PO 01/20/24 11:30 01/31/24 09:23 20 MG Nitroglycerin 250 ml @ 1.5 mls/hr Q24H IV 01/20/24 20:30 Albuterol 2.5 mg Q4HR NEB 01/20/24 22:00 02/01/24 14:28 2.5 MG Ipratropium Lititz 0.5 mg Q4HR NEB 01/20/24 22:00 02/01/24 14:28 0.5 MG Doxycycline Hyclate 250 ml @ 125 mls/hr Q12H IV 01/21/24 14:30 02/01/24 14:20 125 MLS/HR Enteral Nutritional Formula 1,000 ml 60ML/HR GT 01/22/24 14:00 01/31/24 20:27 1,000 ML Purified Water 100 ml Q6HR GT 01/22/24 18:00 02/01/24 11:10 100 ML Methylprednisolone Sodium Succinate 60 mg Q4HR IV 01/24/24 16:00 02/01/24 14:19 60 MG Rocuronium Lititz 1000 mg/ Dextrose 250 ml @ 20.832 mls/ hr Q12H1M IV 01/24/24 17:30 01/30/24 20:24 6.25 MLS/HR Norepinephrine Bitartrate 250 ml @ 3.75 mls/hr Q24H IV 01/24/24 18:30 01/31/24 04:07 3.75 MLS/HR Propofol 100 ml @ 5.046 mls/ hr [id number] IV 01/26/24 22:30 02/01/24 12:32 40.368 MLS/HR Furosemide 40 mg DAILY IV 01/27/24 10:00 02/01/24 09:35 40 MG Vancomycin HCl 300 ml @ 200 mls/hr Q8H IV 01/28/24 02:00 Cancel Linezolid 300 ml @ 150 mls/hr Q12HR IV 01/28/24 22:00 02/01/24 09:35 150 MLS/HR Metoclopramide HCl 10 mg Q8HR IV 01/28/24 14:00 02/01/24 14:19 10 MG Docusate Sodium 100 mg BID GT 01/28/24 22:00 02/01/24 09:34 100 MG Fentanyl Citrate 250 ml @ 2.5 mls/hr Q24H IV 01/29/24 04:00 02/01/24 13:31 35 MLS/HR Hydralazine HCl 10 mg Q6HP PRN IV 01/30/24 13:15 Acetaminophen 650 mg Q4HP PRN PO 01/31/24 07:30 02/01/24 12:21 650 MG Quetiapine Fumarate 50 mg BID PO 01/31/24 10:00 02/01/24 09:34 50 MG Piperacillin Sod/ Tazobactam Sod 100 ml @ 25 mls/hr Q6HR IV 02/01/24 12:00 02/01/24 12:20 25 MLS/HR Examination: GENERAL:Normal, LUNGS:Normal, LUNGS:Abnormal (Diminished on ventilator), CVS:Normal, ABDOMEN:Normal, SKIN:Normal laboratory and microbiology Laboratory Tests 02/01/24 09:30 Test 02/01/24 09:30 Range/Units Serum Glucose 210 H 74-106 mg/dL Microbiology Date/Time Source Procedure Growth Status 01/31/24 14:11 Blood Blood Culture - Preliminary Resulted 01/31/24 10:00 Urine - Reyes Port Urine Culture - Preliminary Resulted 01/31/24 09:50 Sputum Gram Stain - Final Resulted 01/31/24 09:50 Sputum Respiratory Culture - Preliminary Resulted 01/21/24 18:24 Nose MRSA Screen - Final Complete Labs and/or images reviewed: Labs reviewed by me, Image(s) reviewed by me Problem List/Assessment/Plan Problem List/Assessment/Plan 1. Asthma with acute exacerbation Pulmonary consult, monitoring 2. Acute hypoxic respiratory failure requiring intubation Pulmonary Consult 3. Schizophrenia Monitoring 4. Autism Medication, monitoring 5. Elevated Troponin Cardiology Consult, monitoring 6. Cannabis Use Education Assessment/Plan Subjective: Patient remains on the ventilator on a paralytic. Objective: Patient was emergently intubated on January 19, 2024, for acute hypoxic respiratory failure due to asthma exacerbation and likely underlying pneumonia. FiO2 is currently 8%, and PEEP was increased to 10 today. Stool was positive for occult blood, though hemoglobin and platelet counts are stable. Patient previously had nosebleed which has now been controlled with rhino rocket. Okay to resume Lovenox for DVT prophylaxis. Nurses have some concerns with OG tube placement KUB confirmed placement. Patient was started on OG tube feedings and is tolerating. Blood culture was positive for Staphylococcus epidermis patient was placed on IV Zyvox. Consulted Infectious Disease and added Zosyn Plan: Continue current treatment. Manage ventilator settings per pulmonary recommendations. Continue IV antibiotics. Continue with IV Zyvox, awaiting repeat blood cultures, titrate off of paralytics. Okay to use OG tube Plan discussed with: Other (RN) My Orders My Orders Orders - ANAIS REAL Procedure Category Date Status Time Piperacillin-Tazob PHA 02/01/24 In Process 3.375gm (Zosyn 3.375g 12:00 * Infectious Josh- CONS 02/01/24 Transmitted Mallad 11:13 Dietary Evaluation Review Comments: Current Jevity 1.2 @60ml/hr TF is meeting pt's need for protein at 60% for energy at 117% Continue monitor nutrition progress of nutrition support to meet 75% of his needs. Advance to a cardiac diet, texture as tolerated when medically feasible. Expected Outcomes/Goals: gradual weight loss Date of Service: Feb 01, 2024 Billing Provider: LAKE VILLAGRAN MD Common Visit Codes: [id number] INP/OBS CARE (MOD) ANAIS REAL Feb 01, 2024 15:02
--- NOTE | 2024-02-01 20:42 | DVHPN2 ---
Progress Note - Dictate Date Seen: Feb 01, 2024 Medical Necessity Reason Pt with a Central, PICC or Fol: Yes The following are medically ne: Reyes Catheter Reason for reyes catheter: Strict I&O Subjective Patient seen and examined at bedside. Sedated, intubated on mechanical ventilator. Overnight events reviewed. vital signs Vital Sign Date Time Temp Pulse Resp B/P (MAP) Pulse Ox O2 Delivery O2 Flow Rate FiO2 02/01/24 20:06 103/51 02/01/24 19:49 73 31 90 100 02/01/24 18:45 99.3 210.7 02/01/24 18:00 Mechanical Ventilator+ Total Intake and Output 01/31/24 01/31/24 02/01/24 15:00 23:00 07:00 Intake Total 1177.700 ml 1503.840 ml 1092.944 ml Output Total 1850 ml 2200 ml Balance 1177.700 ml -346.160 ml -1107.056 ml medications Current Medications Medications Dose Ordered Sig/Reji Route Start Time Stop Time Status Last Admin Dose Admin Ondansetron HCl 4 mg Q4HP PRN IV 01/19/24 20:15 Pantoprazole Sodium 40 mg DAILY IV 01/20/24 10:00 02/01/24 09:35 40 MG Nitroglycerin 0.4 mg Q5MINP PRN SL 01/19/24 20:15 Midazolam HCl 50 ml @ 1 mls/hr Q24H IV 01/19/24 21:30 02/01/24 18:08 15 MLS/HR Aspirin 81 mg DAILY NG 01/20/24 10:00 02/01/24 09:34 81 MG Atorvastatin Calcium 40 mg HS PO 01/20/24 22:00 01/31/24 21:07 40 MG Latanoprost 1 drop QPM EACHEYE 01/20/24 18:00 02/01/24 16:39 1 DROP Patient Own Medication 400 mg MONTHLY IM 01/20/24 11:30 Lisinopril 20 mg DAILY PO 01/20/24 11:30 01/31/24 09:23 20 MG Nitroglycerin 250 ml @ 1.5 mls/hr Q24H IV 01/20/24 20:30 Albuterol 2.5 mg Q4HR NEB 01/20/24 22:00 02/01/24 18:02 2.5 MG Ipratropium Taylor 0.5 mg Q4HR NEB 01/20/24 22:00 02/01/24 18:02 0.5 MG Enteral Nutritional Formula 1,000 ml 60ML/HR GT 01/22/24 14:00 02/01/24 20:06 1,000 ML Purified Water 100 ml Q6HR GT 01/22/24 18:00 02/01/24 16:39 100 ML Methylprednisolone Sodium Succinate 60 mg Q4HR IV 01/24/24 16:00 02/01/24 16:37 60 MG Rocuronium Taylor 1000 mg/ Dextrose 250 ml @ 20.832 mls/ hr Q12H1M IV 01/24/24 17:30 01/30/24 20:24 6.25 MLS/HR Norepinephrine Bitartrate 250 ml @ 3.75 mls/hr Q24H IV 01/24/24 18:30 01/31/24 04:07 3.75 MLS/HR Propofol 100 ml @ 5.046 mls/ hr [id number] IV 01/26/24 22:30 02/01/24 20:05 40.368 MLS/HR Furosemide 40 mg DAILY IV 01/27/24 10:00 02/01/24 09:35 40 MG Vancomycin HCl 300 ml @ 200 mls/hr Q8H IV 01/28/24 02:00 Cancel Linezolid 300 ml @ 150 mls/hr Q12HR IV 01/28/24 22:00 02/01/24 09:35 150 MLS/HR Metoclopramide HCl 10 mg Q8HR IV 01/28/24 14:00 02/01/24 14:19 10 MG Docusate Sodium 100 mg BID GT 01/28/24 22:00 02/01/24 09:34 100 MG Fentanyl Citrate 250 ml @ 2.5 mls/hr Q24H IV 01/29/24 04:00 02/01/24 20:06 35 MLS/HR Hydralazine HCl 10 mg Q6HP PRN IV 01/30/24 13:15 Acetaminophen 650 mg Q4HP PRN PO 01/31/24 07:30 02/01/24 12:21 650 MG Quetiapine Fumarate 50 mg BID PO 01/31/24 10:00 12/22/24 09:34 50 MG Piperacillin Sod/ Tazobactam Sod 100 ml @ 25 mls/hr Q6HR IV 02/01/24 12:00 02/01/24 16:40 25 MLS/HR objective Gen.: Patient lying in bed in medical ICU. Sedated, intubated on mechanical ventilator. Head: Normocephalic, atraumatic. Eyes: PERRLA. Ears: Normal external anatomy. Throat: Endotracheal tube and orogastric tube in place. Neck: Supple, trachea midline. Chest: Transmitted breath sounds bilaterally. Decreased air entry bilaterally. No wheezing. Bibasilar crackles. Cardiovascular: Positive S1, positive S2. Regular rate and rhythm. Abdomen: Positive bowel sounds in all 4 quadrants. Soft, nontender, nondistended. : Reyes in place. Normal external genitalia. Rectal: Deferred. Skin: Warm, dry. Intact. Extremities: 2+ radial pulses bilaterally. No lower extremity edema. Neuro: Sedated. laboratory and microbiology Laboratory Tests 02/01/24 09:30 Test 02/01/24 09:30 Range/Units Serum Glucose 210 H 74-106 mg/dL Assessment/Plan Impression: Acute hypoxic respiratory failure On mechanical ventilator Acute exacerbation of asthma Elevated Troponin Schizophrenia Autism Cannabinoid Use Morbid obesity BMI 60.5 Pulmonary edema Events: Remains on vent support On AC mode with RR 28, VT 500, PEEP 8, FiO2 100% Increased O2 requirements with turning and linen change Sedated on Propofol, Versed Off Levophed,. hemodynamically stable. Restart rocuronium drip. Leukocytosis with WBC 22.3 K Increased ET tube secretions - may need bronchoscopy Pancultures Taper down FiO2 as tolerated Recommend trach/PEG to liberate from vent. Seroquel 50 mg q.12 hours. ABG reviewed, notable for alkalemia. Continue bronchodilators IV steroids Continue antibiotics Tube feeds for nutritional support Diurese w/ Lasix QD Monitor renal function Monitor electrolytes. Supplement as necessary. Monitor ins and outs. Labs and imaging reviewed. Rest of plan as noted below. Plan: s/p intubation on mechanical ventilator. On AC mode with RR 28, VT 500, PEEP 8, FiO2 100% Titrate FIO2 to keep O2 saturation above 90%. VAP bundle. Daily ABG and CXR while intubated Sedate for ventilator synchrony Pt does not tolerate turns. Derecruitment. Turn carefully. Elevated Troponin - Cardiology recs appreciated. Continue bronchodilators Antibiotics. F/u cultures. Pressors if necessary for hemodynamic support Titrate to keep mean arterial pressure greater than 65 mmHg. Monitor renal function Monitor electrolytes. Supplement as necessary. Monitor ins and outs. Diet and lifestyle modifications for weight reduction Morbid obesity - complicates all care GI prophylaxis. DVT prophylaxis. Prognosis: Poor given patient's multiple co-morbidities. Condition: Critical Rest of plan per hospitalist and other consultants. A total of 35 minutes of critical care time was spent reviewing the patient record, examining the patient, making a diagnostic and therapeutic plan, discussing this plan with the medical personnel, following up on diagnostic studies and following the patient for clinical stability excluding any and all procedures. At least 50% of this time was spent in direct, [id number] contact. Thank you Irma Velasquez NP, for allowing me to participate in this patient's care. Further recommendations will depend on the patient's clinical course. Please do not hesitate to contact me if you have any questions or concerns. This medical document was created using an electronic medical record system with [employer] dictation system. Although these documentations are being carefully reviewed, there may still be some phonetic and typographical changes. The errors are purely typographical, due to imperfection on the software program, and do not reflect any compromise in the patient's medical care. Dietary Evaluation Review Comments: Current Jevity 1.2 @60ml/hr TF is meeting pt's need for protein at 60% for energy at 117% Continue monitor nutrition progress of nutrition support to meet 75% of his needs. Advance to a cardiac diet, texture as tolerated when medically feasible. Expected Outcomes/Goals: gradual weight loss Plan discussed with: Other (SAIGE Holbrook) Critical Care Time(min): 35 VERÓNICA MERCER MD Feb 01, 2024 20:42
--- NOTE | 2024-02-01 20:58 | DVHINCON2 ---
Date of service: Feb 01, 2024 Referring Physician Ron GARCIA Reason for Consultation Pneumonia History of Present Illness Patient is a 28-year-old male , morbidly obese, h/o asthma presents to the hospital for the complaint of shortness of breath, cough and sputum. He reports that he has had yellow colored sputum for 2-3 days. He has been intubated for longterm previously for Asthma in other institution. currently, he is in ICU on MV and requiring high vent setting. He has a prolonged hospital stay already. CXR shows multifocal infiltrates Past Medical History Patient's past medical history is significant for asthma, schizophrenia, and autism. Family History: Self-harm G8 SISTER Allergies: Coded Allergies: NO KNOWN ALLERGIES (Unverified , 09/01/23) Home Meds Reported Medications Metformin Hydrochloride (Metformin Hcl) 500 Mg Tab, 1 TAB PO BID for 90 Days, #180 01/20/24 Beclomethasone Dipropionate (Qvar Redihaler) 40 Mcg/Act Aer, 1 PUFF IN BID for 60 Days, #10.6 01/20/24 Albuterol Sulfate (Albuterol Sulfate Hfa) 108 Mcg/Act Aer, 2 PUFF IN Q4HR PRN for COUGH for 16 Days, #8.5 01/20/24 Latanoprost (Xalatan) 0.005 % Rosy, 1 DROP EACHEYE QPM 09/02/23 Dorzolamide-Timolol (Dorzolamide Hcl/Timolol M) 1 Ml Rosy, 1 DROP EACHEYE BID 09/02/23 Tetrabenazine (Tetrabenazine) 25 Mg Tab, 1 TAB PO DAILY 09/02/23 Trazodone Hcl (Trazodone Hcl) 100 Mg Tab, 1 TAB PO BID 09/02/23 Cholecalciferol (VITAMIN D3) 2,000 Unit Tab, 1 TAB PO DAILY 09/02/23 Atenolol (Atenolol) 50 Mg Tab, 1 TAB PO DAILY 09/02/23 Aripiprazole Monohydrate (Abilify Maintena) 400 Mg Inj, 400 MG IM MONTHLY for 28 Days, #1 09/02/23 Current Medications Current Medications Medications (Trade) Dose Ordered Sig/Reji Route PRN Reason Start Time Stop Time Status Last Admin Piperacillin Sod/ Tazobactam Sod 100 ml @ 25 mls/hr Q6HR IV 02/01/24 12:00 02/01/24 16:40 Piperacillin Sod/ Tazobactam Sod 100 ml @ 25 mls/hr Q8HR IV 02/01/24 14:00 02/01/24 11:36 DC Review of Systems Patient is intubated, ROS could not be obtained. Vital Signs Vital Signs Date Time Temp Pulse Resp B/P (MAP) Pulse Ox O2 Delivery O2 Flow Rate FiO2 02/01/24 20:30 110/56 02/01/24 19:49 73 31 90 100 02/01/24 18:45 99.3 210.7 02/01/24 18:00 Mechanical Ventilator+ Physical Exam Gen.: Patient lying in bed in medical ICU. Sedated, intubated on mechanical ventilator. Head: Normocephalic, atraumatic. Eyes: PERRLA. Ears: Normal external anatomy. Throat: Endotracheal tube and orogastric tube in place. Neck: Supple, trachea midline. lungs: Decreased air entry bilaterally. No wheezing. Bibasilar crackles. Cardiovascular: Positive S1, positive S2. Regular rate and rhythm. Abdomen: Positive bowel sounds in all 4 quadrants. Soft, nontender, nondistended. : Man in place. Normal external genitalia. Skin: Warm, dry. Intact. Neuro: Sedated. Labs/Diagnostic Data Labs Test 02/01/24 09:30 02/01/24 07:06 01/31/24 06:46 01/30/24 06:00 Range/Units White Blood Count 22.3 H 4.4-10.8 10^3/uL Red Blood Count 5.44 4.5-5.90 10^6/uL Hemoglobin 12.0 L 13.5-17.5 g/dL Hematocrit 39.3 #L 41.0-53.0 % Mean Corpuscular Volume 72.4 L 80.0-100.0 fL Mean Corpuscular Hemoglobin 22.0 L 28.0-32.0 pg Mean Corpuscular Hemoglobin Concent 30.4 L 32.0-36.0 g/dL Red Cell Distribution Width 19.2 H 11.8-14.3 % Platelet Count 156 140-450 10^3/uL Mean Platelet Volume 8.8 6.9-10.8 fL Neutrophils (%) (Auto) 94.0 H 37.0-80.0 % Lymphocytes (%) (Auto) 1.3 L 10.0-50.0 % Monocytes (%) (Auto) 4.2 0.0-12.0 % Eosinophils (%) (Auto) 0.1 0.0-7.0 % Basophils (%) (Auto) 0.4 0.0-2.0 % Neutrophils # (Auto) 20.9 H 1.6-8.6 10 ^3/uL Lymphocytes # (Auto) 0.3 L 0.4-5.4 10 ^3/uL Monocytes # (Auto) 0.9 0-1.3 10 ^3/uL Eosinophils # (Auto) 0 0-0.8 10 ^3/uL Basophils # (Auto) 0.1 0-0.2 10 ^3/uL Nucleated Red Blood Cells 0.0 % Sodium Level 139 136-145 mmol/L Potassium Level 4.4 3.5-5.1 mmol/L Chloride Level 102 98-107 mmol/L Carbon Dioxide Level 33 H 20-31 mmol/L Anion Gap 4 L 5-15 Blood Urea Nitrogen 15 9-23 mg/dL Creatinine 0.42 L 0.700-1.30 mg/dL Glomerular Filtration Rate Calc 149 >90 mL/min BUN/Creatinine Ratio 35.7 H 10.0-20.0 Serum Glucose 210 H 74-106 mg/dL Calcium Level 8.8 8.7-10.4 mg/dL Magnesium Level 2.2 1.6-2.6 mg/dL Total Bilirubin 1.6 H 0.2-1.0 mg/dL Aspartate Amino Transferase (AST) 24 13-40 U/L Alanine Aminotransferase (ALT) 66 H 7-40 U/L Alkaline Phosphatase 86 46-116 U/L Total Protein 5.5 L 5.7-8.2 g/dL Albumin 3.1 L 3.2-4.8 g/dL Blood Gas Specimen Type Arterial Blood Gas Sample Site Right radial Blood Gas Patient Temperature 37.0 Arterial Blood Date Drawn [id number] Arterial Blood pH 7.455 H 7.350-7.450 Arterial Blood Partial Pressure CO2 45.7 35.0-48.0 mmHg Arterial Blood Partial Pressure O2 55.1 L 83.0-108.0 mmHg Arterial Blood HCO3 31.4 H 21.0-28.0 mmol/L Arterial Blood Oxygen Saturation 87.0 L 94.0-98.0 % Arterial Blood Base Excess 6.6 H -2.0-3.0 mmol/L Arterial Blood Oxyhemoglobin 86.0 L 94.0-98.0 % Arterial Blood Carboxyhemoglobin 1.0 0.5-1.5 % Arterial Blood Methemoglobin 0.1 0.0-1.5 % Giacomo Test Modified Blood Gas Total Hemoglobin 12.90 L 13.5-17.5 g/dL Blood Gas Set Respiration Rate 28.0 Blood Gas Modality Vent - ac Blood Gas Spontaneous Rate 28 FiO2 % 80.0 Blood Gas Tidal Volume 500.0 Blood Gas PEEP or CPAP 8.0 Lactic Acid Level 1.2 0.4-2.0 mmol/L Blood Gas Critical Value Read Back Yes Blood Gas Notified Whom irene Velasquez np Blood Gas Notified Time [id number] Blood Gas Notified By Junior Financial Analyst susannah mondragon Test 01/29/24 08:10 01/28/24 09:11 01/27/24 14:30 01/24/24 03:08 Range/Units Prothrombin Time 11.4 9.3-11.8 sec Prothrombin Time INR 1.08 0.9-1.15 Activated Partial Thromboplast Time 28.5 24.5-34.5 SEC Vancomycin Level Trough 7.3 5-10 ug/mL Gastric Fluid pH 4.0 Gastric Fluid Occult Blood Positive Negative B-Type Natriuretic Peptide 173.31 0-100 pg/mL Test 01/21/24 16:23 01/20/24 10:15 01/20/24 07:34 01/19/24 20:30 Range/Units Phosphorus Level 3.9 2.4-5.1 mg/dL Troponin I High Sensitivity 82 *H </=54 ng/L Thyroid Stimulating Hormone (TSH) 0.48 L 0.55-4.78 uIU/mL Influenza Type A Antigen Negative Negative Influenza Type B Antigen Negative Negative SARS-CoV-2 Antigen (Rapid) Negative NEGATIVE Test 01/19/24 20:16 01/19/24 20:10 01/19/24 18:04 01/19/24 17:56 Range/Units Blood Gas EPAP 8 Blood Gas IPAP 20 Specimen Drawn By Nasra jiménez technical photographer Urine Opiates Screen Neg NEGATIVE Urine Fentanyl Screen Neg NEGATIVE Urine Barbiturates Screen Neg NEGATIVE Urine Phencyclidine Screen Neg NEGATIVE Urine Amphetamines Screen Neg NEGATIVE Urine Benzodiazepines Screen Pos NEGATIVE Urine Cocaine Screen Neg NEGATIVE Urine Cannabinoids Screen Pos NEGATIVE D-Dimer, Quantitative 0.43 0.0-0.49 mg/L FEU Blood Gas Liter Flow 6.00 Microbiology Date/Time Source Procedure Growth Status 01/31/24 14:11 Blood Blood Culture - Preliminary Resulted 01/31/24 10:00 Urine - Man Port Urine Culture - Preliminary Resulted 01/31/24 09:50 Sputum Gram Stain - Final Resulted 01/31/24 09:50 Sputum Respiratory Culture - Preliminary Resulted 01/21/24 18:24 Nose MRSA Screen - Final Complete Assessment Patient is a 28-year-old male presented to the hospital with: Multifocal pneumonia: [place] ARDS Acute hypoxic respiratory failure On mechanical ventilator Coag negative staphylococcus bacteremia Acute exacerbation of asthma Elevated Troponin Schizophrenia Autism Cannabinoid Use Morbid obesity BMI 60.5 Pulmonary edema Recommendations: reviewed cultures since admission listed below Culture History: 01/21, Blood culture showed Growth Of Coagulase Negative Staphylococcus 01/30, Urine culture: No growth monitored 01/30, Sputum culture showed Klebsiella pneumoniae antibiotics history Vancomycin 01/22- Linezolid 01/27- now Zosyn: 01/31- now blood cx seems to look contaminations, + 1/2. discontinue Linezolid CXR shows multifocal infiltrate suggestive of ARDS, he is requiring high FIO2, possibly associated with pulm edema and bacterial pneumonia [place] is pansensitive, taper zosyn to ceftriaxone or cefepime. pulmonary is on board, possible plan for bronchoscopy prognosis is very poor. critical time 45 minutes spent. plan discussed with RN at bedside. Thank you for consult and for giving an opportunity to take care of this patient. Plan discussed with: EBEN Singh MD Feb 01, 2024 20:58
[2024-02-02] VITALS (113 sets, daily range): BP systolic 85–161; BP diastolic 35–95; PULSE 62–105; RESP 13–31; TEMP 98.5–99.9; O2SAT 87–100
[2024-02-02 04:31] LABS: Chloride 101 mmol/L (98-107); Potassium 4.4 mmol/L (3.5-5.1); Sodium 138 mmol/L (136-145)
[2024-02-02 04:32] LABS: Anion Gap 4 (5-15); Calcium 8.8 mg/dL (8.7-10.4)
[2024-02-02 04:38] LABS: BUN/Creatinine Ratio 38.5 (10.0-20.0); Blood Urea Nitrogen 15 mg/dL (9-23); Magnesium 2.2 mg/dL (1.6-2.6)
--- NOTE | 2024-02-02 04:43 | DVH ---
CHEST RADIOGRAPH Indication: Intubated Technique: Single frontal view of the chest was obtained Comparison: XY CHEST PORTABLE on DOS: 02/01/24 FINDINGS: Lines and Tubes: Endotracheal tube terminates above the zbigniew. Left central venous catheter termina benjamin in the left brachiocephalic region. Enteric tube courses below the left hemidiaphragm but the tip is not well seen. Lungs: The lungs are hypoinflated. Bilateral pulmonary opacities are similar to prior study. Pleura: No effusion. No pneumothorax. Cardiomediastinal contours: Unremarkable Bones: No acute osseous abnormality. IMPRESSION: 1. Stable appearance of the support lines and tubes. 2. Pulmonary opacities, unchanged.
[2024-02-02 05:02] LABS: Carbon Dioxide 33 mmol/L (20-31); Glucose 243 mg/dL (74-106)
[2024-02-02 06:41] LABS: Base Excess 5.8 mmol/L (-2.0-3.0)
--- NOTE | 2024-02-02 08:10 | DVHPN2 ---
Progress Note - Dictate Date Seen: Feb 02, 2024 Medical Necessity Reason Pt with a Central, PICC or Fol: Yes The following are medically ne: Reyes Catheter Reason for reyes catheter: Strict I&O vital signs Vital Sign Date Time Temp Pulse Resp B/P (MAP) Pulse Ox O2 Delivery O2 Flow Rate FiO2 02/02/24 07:20 120/61 02/02/24 07:00 99.1 77 28 88 210.4 02/02/24 06:17 100 02/02/24 06:00 Mechanical Ventilator+ Total Intake and Output 02/01/24 02/01/24 02/02/24 15:00 23:00 07:00 Intake Total 1222.944 ml 1673.523 ml 1118.732 ml Output Total 1100 ml 1325 ml Balance 1222.944 ml 573.523 ml -206.268 ml medications Current Medications Medications Dose Ordered Sig/Reji Route Start Time Stop Time Status Last Admin Dose Admin Ondansetron HCl 4 mg Q4HP PRN IV 01/19/24 20:15 Pantoprazole Sodium 40 mg DAILY IV 01/20/24 10:00 02/01/24 09:35 40 MG Nitroglycerin 0.4 mg Q5MINP PRN SL 01/19/24 20:15 Midazolam HCl 50 ml @ 1 mls/hr Q24H IV 01/19/24 21:30 02/02/24 07:20 15 MLS/HR Aspirin 81 mg DAILY NG 01/20/24 10:00 02/01/24 09:34 81 MG Atorvastatin Calcium 40 mg HS PO 01/20/24 22:00 02/01/24 21:23 40 MG Latanoprost 1 drop QPM EACHEYE 01/20/24 18:00 02/01/24 16:39 1 DROP Patient Own Medication 400 mg MONTHLY IM 01/20/24 11:30 Lisinopril 20 mg DAILY PO 01/20/24 11:30 01/31/24 09:23 20 MG Nitroglycerin 250 ml @ 1.5 mls/hr Q24H IV 01/20/24 20:30 Albuterol 2.5 mg Q4HR NEB 01/20/24 22:00 02/02/24 06:10 2.5 MG Ipratropium [place] 0.5 mg Q4HR NEB 01/20/24 22:00 02/02/24 06:10 0.5 MG Enteral Nutritional Formula 1,000 ml 60ML/HR GT 01/22/24 14:00 02/01/24 20:06 1,000 ML Purified Water 100 ml Q6HR GT 01/22/24 18:00 02/02/24 05:34 100 ML Methylprednisolone Sodium Succinate 60 mg Q4HR IV 01/24/24 16:00 02/02/24 05:33 60 MG Rocuronium [place] 1000 mg/ Dextrose 250 ml @ 20.832 mls/ hr Q12H1M IV 01/24/24 17:30 02/02/24 05:38 27.082 MLS/HR Norepinephrine Bitartrate 250 ml @ 3.75 mls/hr Q24H IV 01/24/24 18:30 01/31/24 04:07 3.75 MLS/HR Propofol 100 ml @ 5.046 mls/ hr [id number] IV 01/26/24 22:30 02/02/24 05:33 40.368 MLS/HR Furosemide 40 mg DAILY IV 01/27/24 10:00 02/01/24 09:35 40 MG Vancomycin HCl 300 ml @ 200 mls/hr Q8H IV 01/28/24 02:00 Cancel Linezolid 300 ml @ 150 mls/hr Q12HR IV 01/28/24 22:00 02/01/24 21:23 150 MLS/HR Metoclopramide HCl 10 mg Q8HR IV 01/28/24 14:00 02/02/24 05:33 10 MG Docusate Sodium 100 mg BID GT 01/28/24 22:00 02/01/24 21:22 100 MG Fentanyl Citrate 250 ml @ 2.5 mls/hr Q24H IV 01/29/24 04:00 02/02/24 02:53 35 MLS/HR Hydralazine HCl 10 mg Q6HP PRN IV 01/30/24 13:15 Acetaminophen 650 mg Q4HP PRN PO 01/31/24 07:30 02/01/24 12:21 650 MG Quetiapine Fumarate 50 mg BID PO 01/31/24 10:00 02/01/24 21:23 50 MG Piperacillin Sod/ Tazobactam Sod 100 ml @ 25 mls/hr Q6HR IV 02/01/24 12:00 02/02/24 05:33 25 MLS/HR laboratory and microbiology Laboratory Tests 02/02/24 03:58 02/01/24 09:30 Test 02/02/24 03:58 Range/Units Serum Glucose 243 H 74-106 mg/dL Assessment/Plan Patient is 28 year old morbidly obese male who presented to ED with shortness of breath. He has been intubated for respiratory failure and in on vent. support. Information was obtained by reviewing the chart and communicating with staff. Cardiology is involved for cardiac aspects of care. There is no report of chest pain prior to presentation. Reportedly, patient has been intubated for longterm previously for Asthma in other institution. Intubated and on vent support. Morbidly obese. Does have right sided subclavian access. No JVD. Mucosa is pink and wet. No goiter. Scattered rhonchi is heard. Cardiac: RR, no thrill, no gallop. Abdomen is soft, obese and distended. BS is +. Ext reveal 2+ edema bilaterally. DP is 2+ bilateral PMH reportedly includes Morbid obesity, Asthma (with previous intubations), Autism, Schizophrenia and ANNETET. Smokes Marijuana and drinks alcohol WBC: 11.6 to 11.2 to 14.2 to 12.2 to 13.3 to 16.4 to 17.5 to 15.3 to 13.8 to 15.7 to 13.8 - 22.2 to 22.3 D-dimer: 0.43 (wnl) Creat: 0.73 - 0.70 - 0.67 - 0.76 - 0.71 - 0.70 - 0.69 - 0.59 - 0.60 - 0.52 - 0.50 - 0.47 - 0.47 - 0.62 - 0.42 - 0.39 K: 4.1 - 4.3 - 4.1 - 4.2 - 4.0 - 4.1 - 4.1 - 3.9 - 4.0 - 3.8 - 4.3 - 4.7 - 4.4 - 4.4 BNP: 561.97 - 173.31 Trop (high sensitive): 61 - 62 - 131 - 132 - 91 - 82 TSH: 0.48 Urine toxicology was positive for Cannabinoids and Benzodiazpin Chest xry revealed: FINDINGS: Lines and Tubes: None Lungs: Obscuration of the left hemidiaphragm Diffuse interstitial prominence. No pneumothorax. Cardiomediastinal contours: Moderate cardiomegaly Bones: No acute osseous abnormality. IMPRESSION: Moderate cardiomegaly with findings suggestive of congestive heart failure. Possible left-sided pleural effusion. Repeat chest xry revealed: Endotracheal tube projects terminating 1.8 cm superior to the zbigniew. Enteric tube is projecting below the GE junction without visualization of the port or tip. Low lung volumes with bronchovascular crowding. Possible small left-sided pleural effusion and/or atelectasis. No pneumothorax. Repeat chest xry revealed: Cardiomediastinal silhouette is enlarged. There is increased pulmonary vascular congestion, similar prior examination. Obscuration of the left hemidiaphragm may be on the basis of technique versus small pleural effusion. No discrete pneumothorax. Endotracheal tube and enteric tube are redemonstrated. Left IJ catheter tip is likely at the region of the brachiocephalic vein. Repeat chest xry revealed: FINDINGS: Cardiomediastinal silhouette is enlarged. There is increased pulmonary vascular congestion, similar prior examination. Obscuration of the left hemidiaphragm may be on the basis of technique versus small pleural effusion. No discrete pneumothorax. Endotracheal tube and enteric tube are redemonstrated. Left IJ catheter tip is likely at the region of the brachiocephalic vein. IMPRESSION: NO INTERVAL CHANGE. Repeat chest xry revealed: IMPRESSION: Improving pulmonary edema compared to prior exam. Repeat chest xry revealed: IMPRESSION: stable pulmonary edema compared to prior exam. Repeat chest xry revealed: IMPRESSION: Lines and tubes in satisfactory position. No significant interval change. Repeat chest xry revealed: IMPRESSION: Lines and tubes in satisfactory position. No significant interval change. Repeat chest xry revealed: IMPRESSION: Lines and tubes in satisfactory position. No significant interval change. Repeat chest xry: IMPRESSION: 1. Stable position of the support lines and tubes. 2. No significant change in diffuse bilateral airspace opacities. Repeat chest xry revealed: IMPRESSION: 1. Endotracheal tube terminates 6.4 symbol the zbigniew. 2. Bilateral airspace disease unchanged. Repeat chest xry revealed: IMPRESSION: 1. Endotracheal tube 4.1 cm above the zbigniew. 2. OG tube not visualized AND may BE IN THE RIGHT MAINSTEM BRONCHUS RECOMMEND REMOVAL AND REPOSITIONING WITH REPEAT CHEST X-RAY. Repeat chest xry revealed: FINDINGS: Endotracheal tube in place 4.4 cm above the zbigniew. Left internal jugular catheter in place in the superior vena cava. Cardiomegaly is noted with pulmonary vascular congestion findings may represent congestive failure other possibility such as pneumonia are in the differential. IMPRESSION: 1. Cardiomegaly with findings of pulmonary vascular congestion. Findings may represent congestive failure or pneumonia. Repeat chest xry revealed: Lines and Tubes: The endotracheal tube terminates 3.1 cm above the zbigniew. Left central venous catheter terminates in the superior vena cava. Enteric tube is visualized to the mid chest but not visualized below the left hemidiaphragm. Lungs: Bilateral airspace disease. Pleura: No effusion. No pneumothorax. Cardiomediastinal contours: Stable cardiomegaly. Bones: No acute osseous abnormality. IMPRESSION: 1. Enteric tube not visualized below the left hemidiaphragm. 2. Bilateral airspace disease similar to prior exam. Repeat chest xry revealed: Limited evaluation given patient positioning. The heart appears markedly enlarged. There are low lung volumes with moderate alveolar airspace opacities suggesting pulmonary edema. No discrete pneumothorax. Endotracheal tube appear stable. Enteric tube is not well visualized. Repeat chest xry revealed: IMPRESSION: 1. Stable appearance of the support lines and tubes. 2. Pulmonary opacities, unchanged. KUB revealed: Impression: 1. Nonobstructive bowel gas pattern. 2. Enteric tube overlying the plane of the stomach. 3. No visualized renal calculi. Venous duplex of lower ext revealed: Impression: 1. No right or left femoropopliteal venous thrombosis. 2. Left common femoral vein and proximal superficial femoral vein are not visible and therefore thrombus can not be excluded in those areas. EKG revealed: Sinus tachycardia with non-specific STT changes Tele reveals Sinus rhythm Echocardiogram revealed: Technically limited study secondary to poor acoustic windows. Left ventricle: Left ventricle was normal-sized with normal systolic function. LVEF was 60-65%. There was no gross wall motion abnormality observed. Right ventricle was not well visualized but it was dilated. Left atrium was normal-sized. Right atrium was not well visualized. Aortic valve was trileaflet and normal. There was no aortic insufficiency/stenosis. There was trivial mitral and tricuspid regurgitation. There was mild pulmonary valve insufficiency. As there was no good tricuspid regurgitation jet, right ventricular systolic pressure could not be estimated. There was no pericardial effusion. Patient is 28 year old male with history of morbid obesity who presented with respiratory failure. Does have history of Asthma and reportedly has been intubated for it before. Trop has been mildly elevated. ACS is less likely and increase in troponin most likely represents demand physiology. Still, component of type 1 physiology cannot be completely ruled out. Echo revealed dilated RV. As there was no good TR jet, RVSP could not be estimated. Pulmonary Hypertension cannot be ruled out. Pulmonary on board. On sedation Acute respiratory failure Asthma Asthma exacerbation Morbid obesity Abnormal trop Questionable heart failure, acute Cardiac suggestion for management: Manage in ICU IV diuresis Follow up electrolytes and kidney function test and correct abnormalities. Keep potassium above 4 and magnesium above 2 Lovenox ASA Follow up vital signs and correct hyper/hypotension. If needed add pressure support to keep MAP above 65 mmHg Pulmonary follow up Further evaluation and management depends on the above and clinical course A total of 75 minutes was spent reviewing the patient record, examining the patient, making a diagnostic and therapeutic plan, discussing this plan with medical personnel, following up on diagnostic studies and following the patient for clinical stability excluding any and all procedures. At least 50% of this time was spent in direct, [id number] contact. Thank you for allowing me to participate in this patient's care. Further recommendations will depend on patient's clinical course. Please do not hesitate to contact me if you have any questions or concerns. This medical document was created using electronic medical record system with [employer] computerized dictation system. Although this document has been carefully reviewed, there may still be some phonetic and typographical errors. These areas are purely typographical due to the imperfection of the software programs, and do not reflect any compromise in the patient's medical care. Dietary Evaluation Review Comments: Current Jevity 1.2 @60ml/hr TF is meeting pt's need for protein at 60% for energy at 117% Continue monitor nutrition progress of nutrition support to meet 75% of his needs. Advance to a cardiac diet, texture as tolerated when medically feasible. Expected Outcomes/Goals: gradual weight loss Plan discussed with: Other (nurse) PARRIS MCKINNON MD Feb 02, 2024 08:10
[2024-02-02] MEDS: FUROSEMIDE 40 MG/4 ML VIAL IV SCH (10:30)
[2024-02-02 11:28] LABS: Basophils # (auto) 0 10 ^3/uL (0-0.2); Basophils % (auto) 0.2 % (0.0-2.0); Eosinophils # (auto) 0 10 ^3/uL (0-0.8); Hemoglobin 11.9 g/dL (13.5-17.5); Lymphocytes # (auto) 0.2 10 ^3/uL (0.4-5.4); Mean Corpuscular Hemoglobin 22.1 pg (28.0-32.0); Monocytes # (auto) 0.6 10 ^3/uL (0-1.3); Red Cell Distribution Width 19.3 % (11.8-14.3)
[2024-02-02 11:30] LABS: Hematocrit 39.1 % (41.0-53.0); Lymphocytes % (auto) 0.9 % (10.0-50.0); Mean Corpuscular Hgb Conc. 30.5 g/dL (32.0-36.0); Mean Corpuscular Volume 72.6 fL (80.0-100.0); Monocytes % (auto) 2.7 % (0.0-12.0); Neutrophils # (auto) 23.1 10 ^3/uL (1.6-8.6); Neutrophils % (auto) 96.2 % (37.0-80.0); Platelet Count (auto) 144 10^3/uL (140-450); Red Blood Cells 5.38 10^6/uL (4.5-5.90)
--- NOTE | 2024-02-02 12:40 | DVHPN2 ---
Progress Note - Dictate Date Seen: Feb 02, 2024 Medical Necessity Reason Pt with a Central, PICC or Fol: Yes The following are medically ne: Reyes Catheter Reason for reyes catheter: Strict I&O vital signs Vital Sign Date Time Temp Pulse Resp B/P (MAP) Pulse Ox O2 Delivery O2 Flow Rate FiO2 02/02/24 12:27 72 28 121/65 (83) 97 90 02/02/24 12:00 Mechanical Ventilator+ 02/02/24 11:45 99.7 211.5 Total Intake and Output 02/01/24 02/01/24 02/02/24 14:59 22:59 06:59 Intake Total 1072.944 ml 1600.608 ml 1285.815 ml Output Total 1100 ml 1325 ml Balance 1072.944 ml 500.608 ml -39.185 ml medications Current Medications Medications Dose Ordered Sig/Reji Route Start Time Stop Time Status Last Admin Dose Admin Ondansetron HCl 4 mg Q4HP PRN IV 01/19/24 20:15 Pantoprazole Sodium 40 mg DAILY IV 01/20/24 10:00 02/02/24 09:34 40 MG Nitroglycerin 0.4 mg Q5MINP PRN SL 01/19/24 20:15 Midazolam HCl 50 ml @ 1 mls/hr Q24H IV 01/19/24 21:30 02/02/24 10:08 15 MLS/HR Aspirin 81 mg DAILY NG 01/20/24 10:00 02/02/24 09:35 81 MG Atorvastatin Calcium 40 mg HS PO 01/20/24 22:00 02/01/24 21:23 40 MG Latanoprost 1 drop QPM EACHEYE 01/20/24 18:00 02/01/24 16:39 1 DROP Patient Own Medication 400 mg MONTHLY IM 01/20/24 11:30 Lisinopril 20 mg DAILY PO 01/20/24 11:30 02/02/24 09:35 20 MG Nitroglycerin 250 ml @ 1.5 mls/hr Q24H IV 01/20/24 20:30 Albuterol 2.5 mg Q4HR NEB 01/20/24 22:00 02/02/24 10:26 2.5 MG Ipratropium [place] 0.5 mg Q4HR NEB 01/20/24 22:00 02/02/24 10:26 0.5 MG Enteral Nutritional Formula 1,000 ml 60ML/HR GT 01/22/24 14:00 02/01/24 20:06 1,000 ML Purified Water 100 ml Q6HR GT 01/22/24 18:00 02/02/24 05:34 100 ML Methylprednisolone Sodium Succinate 60 mg Q4HR IV 01/24/24 16:00 02/02/24 09:35 60 MG Rocuronium [place] 1000 mg/ Dextrose 250 ml @ 20.832 mls/ hr Q12H1M IV 01/24/24 17:30 02/02/24 05:38 27.082 MLS/HR Norepinephrine Bitartrate 250 ml @ 3.75 mls/hr Q24H IV 01/24/24 18:30 01/31/24 04:07 3.75 MLS/HR Propofol 100 ml @ 5.046 mls/ hr [id number] IV 01/26/24 22:30 02/02/24 11:08 40.368 MLS/HR Vancomycin HCl 300 ml @ 200 mls/hr Q8H IV 01/28/24 02:00 Cancel Linezolid 300 ml @ 150 mls/hr Q12HR IV 01/28/24 22:00 02/02/24 09:35 150 MLS/HR Metoclopramide HCl 10 mg Q8HR IV 01/28/24 14:00 02/02/24 05:33 10 MG Docusate Sodium 100 mg BID GT 01/28/24 22:00 02/02/24 09:34 100 MG Fentanyl Citrate 250 ml @ 2.5 mls/hr Q24H IV 01/29/24 04:00 02/02/24 10:08 35 MLS/HR Hydralazine HCl 10 mg Q6HP PRN IV 01/30/24 13:15 Acetaminophen 650 mg Q4HP PRN PO 01/31/24 07:30 02/01/24 12:21 650 MG Quetiapine Fumarate 50 mg BID PO 01/31/24 10:00 02/02/24 09:35 50 MG Piperacillin Sod/ Tazobactam Sod 100 ml @ 25 mls/hr Q6HR IV 02/01/24 12:00 02/02/24 05:33 25 MLS/HR Furosemide 40 mg BIDD IV 02/02/24 10:30 objective General Appearance: alert, no distress HEENT: EOMI, PERRLA, normal external inspect of ears, no icterus, no nasal drainage Neck: no carotid bruit, no jugular venous distention (JVD), no lymphadenopathy Chest: normal thorax Respiratory: clear to auscultation Cardiovascular: regular rate and rhythm, no diastolic murmur, no jugular venous distention (JVD), no rub, no systolic murmur Abdominal: soft, no hepatomegaly, no mass, no splenomegaly, no tenderness Genitourinary: grossly normal external Musculoskeletal: no joint tenderness, no swelling Extremities: normal pulses, no calf tenderness, no clubbing, no cyanosis, no edema Skin: no bruising, no jaundice, no rash Neurological: alert, No focal deficit laboratory and microbiology Laboratory Tests 02/02/24 10:30 02/02/24 03:58 Test 02/02/24 03:58 Range/Units Serum Glucose 243 H 74-106 mg/dL Problem List 1. Asthma with acute exacerbation Pulmonary consult, monitoring 2. Acute hypoxic respiratory failure requiring intubation Pulmonary Consult 3. Schizophrenia Monitoring 4. Autism Medication, monitoring 5. Elevated Troponin Cardiology Consult, monitoring 6. Cannabis Use Education Assessment/Plan Subjective: Patient is sedated and currently on the ventilator. Objective: Patient's PEEP is back at 10. Ventilators at 90% FiO2. Blood culture shows staph epidermis, ID has been consulted. Stool was positive for occult. Blood hemoglobin is stable. Patient is currently on Zyvox and Zosyn for sepsis. Plan: Continue current treatment. ID consult. Pulmonary recommendations appreciated. Dietary Evaluation Review Comments: Current Jevity 1.2 @60ml/hr TF is meeting pt's need for protein at 60% for energy at 117% Continue monitor nutrition progress of nutrition support to meet 75% of his needs. Advance to a cardiac diet, texture as tolerated when medically feasible. Expected Outcomes/Goals: gradual weight loss Plan discussed with: Patient, Other VIK COBOS NP Feb 02, 2024 12:40
--- NOTE | 2024-02-02 17:24 | DVHPN2 ---
Progress Note - Dictate Date Seen: Feb 02, 2024 Medical Necessity Reason Pt with a Central, PICC or Fol: Yes The following are medically ne: Reyes Catheter Reason for reyes catheter: Strict I&O Subjective Patient remains intubated. No new acute complaints noted at this time. vital signs Vital Sign Date Time Temp Pulse Resp B/P (MAP) Pulse Ox O2 Delivery O2 Flow Rate FiO2 02/02/24 16:15 75 27 140/70 (93) 97 02/02/24 16:00 90 02/02/24 16:00 Mechanical Ventilator+ 02/02/24 15:45 98.6 98.6 Total Intake and Output 02/01/24 02/01/24 02/02/24 15:00 23:00 07:00 Intake Total 1222.944 ml 1673.523 ml 1236.182 ml Output Total 1100 ml 1325 ml Balance 1222.944 ml 573.523 ml -88.818 ml medications Current Medications Medications Dose Ordered Sig/Reji Route Start Time Stop Time Status Last Admin Dose Admin Ondansetron HCl 4 mg Q4HP PRN IV 01/19/24 20:15 Pantoprazole Sodium 40 mg DAILY IV 01/20/24 10:00 02/02/24 09:34 40 MG Nitroglycerin 0.4 mg Q5MINP PRN SL 01/19/24 20:15 Midazolam HCl 50 ml @ 1 mls/hr Q24H IV 01/19/24 21:30 02/02/24 13:25 15 MLS/HR Aspirin 81 mg DAILY NG 01/20/24 10:00 02/02/24 09:35 81 MG Atorvastatin Calcium 40 mg HS PO 01/20/24 22:00 02/01/24 21:23 40 MG Latanoprost 1 drop QPM EACHEYE 01/20/24 18:00 02/01/24 16:39 1 DROP Patient Own Medication 400 mg MONTHLY IM 01/20/24 11:30 Lisinopril 20 mg DAILY PO 01/20/24 11:30 02/02/24 09:35 20 MG Nitroglycerin 250 ml @ 1.5 mls/hr Q24H IV 01/20/24 20:30 Albuterol 2.5 mg Q4HR NEB 01/20/24 22:00 02/02/24 14:22 2.5 MG Ipratropium [place] 0.5 mg Q4HR NEB 01/20/24 22:00 02/02/24 14:22 0.5 MG Enteral Nutritional Formula 1,000 ml 60ML/HR GT 01/22/24 14:00 02/01/24 20:06 1,000 ML Purified Water 100 ml Q6HR GT 01/22/24 18:00 02/02/24 05:34 100 ML Methylprednisolone Sodium Succinate 60 mg Q4HR IV 01/24/24 16:00 02/02/24 13:37 60 MG Rocuronium [place] 1000 mg/ Dextrose 250 ml @ 20.832 mls/ hr Q12H1M IV 01/24/24 17:30 02/02/24 16:37 24.998 MLS/HR Norepinephrine Bitartrate 250 ml @ 3.75 mls/hr Q24H IV 01/24/24 18:30 01/31/24 04:07 3.75 MLS/HR Propofol 100 ml @ 5.046 mls/ hr [id number] IV 01/26/24 22:30 02/02/24 15:43 40.368 MLS/HR Vancomycin HCl 300 ml @ 200 mls/hr Q8H IV 01/28/24 02:00 Cancel Linezolid 300 ml @ 150 mls/hr Q12HR IV 01/28/24 22:00 02/02/24 09:35 150 MLS/HR Metoclopramide HCl 10 mg Q8HR IV 01/28/24 14:00 02/02/24 13:37 10 MG Docusate Sodium 100 mg BID GT 01/28/24 22:00 02/02/24 09:34 100 MG Fentanyl Citrate 250 ml @ 2.5 mls/hr Q24H IV 01/29/24 04:00 02/02/24 10:08 35 MLS/HR Hydralazine HCl 10 mg Q6HP PRN IV 01/30/24 13:15 Acetaminophen 650 mg Q4HP PRN PO 01/31/24 07:30 02/01/24 12:21 650 MG Quetiapine Fumarate 50 mg BID PO 01/31/24 10:00 02/02/24 09:35 50 MG Piperacillin Sod/ Tazobactam Sod 100 ml @ 25 mls/hr Q6HR IV 02/01/24 12:00 02/02/24 13:35 25 MLS/HR Furosemide 40 mg BIDD IV 02/02/24 10:30 objective Gen.: Patient lying in bed in medical ICU. Sedated, intubated on mechanical ventilator. Head: Normocephalic, atraumatic. Eyes: PERRLA. Ears: Normal external anatomy. Throat: Endotracheal tube and orogastric tube in place. Neck: Supple, trachea midline. Chest:. Decreased air entry bilaterally. No wheezing. Bibasilar crackles. Cardiovascular: Positive S1, positive S2. Regular rate and rhythm. Abdomen: Positive bowel sounds in all 4 quadrants. Soft, nontender, nondistended. : Reyes in place. Normal external genitalia. Rectal: Deferred. Skin: Warm, dry. Intact. Neuro: Sedated. laboratory and microbiology Laboratory Tests 02/02/24 10:30 02/02/24 03:58 Test 02/02/24 03:58 Range/Units Serum Glucose 243 H 74-106 mg/dL Assessment/Plan Patient is a 28-year-old male presented to the hospital with: Multifocal pneumonia: [place] ARDS Acute hypoxic respiratory failure On mechanical ventilator Coag negative staphylococcus bacteremia Acute exacerbation of asthma Elevated Troponin Schizophrenia Autism Cannabinoid Use Morbid obesity BMI 60.5 Pulmonary edema Recommendations: reviewed cultures since admission listed below Culture History: 01/21, Blood culture showed Growth Of Coagulase Negative Staphylococcus 01/30, Urine culture: No growth monitored 01/30, Sputum culture showed Klebsiella pneumoniae antibiotics history Vancomycin 01/22- Linezolid 01/27- now Zosyn: 01/31- now blood cx seems to look contaminations, + 1/2. discontinue Linezolid CXR shows multifocal infiltrate suggestive of ARDS, he is requiring high FIO2, possibly associated with pulm edema and bacterial pneumonia [place] is pansensitive, taper zosyn to ceftriaxone or cefepime. pulmonary is on board, possible plan for bronchoscopy prognosis is very poor. critical time 35 minutes spent. plan discussed with RN at bedside. Thank you for consult and for giving an opportunity to take care of this patient. Dietary Evaluation Review Comments: Current Jevity 1.2 @60ml/hr TF is meeting pt's need for protein at 60% for energy at 117% Continue monitor nutrition progress of nutrition support to meet 75% of his needs. Advance to a cardiac diet, texture as tolerated when medically feasible. Expected Outcomes/Goals: gradual weight loss Plan discussed with: EBEN Singh MD Feb 02, 2024 17:23
--- NOTE | 2024-02-02 23:09 | DVHPN2 ---
Progress Note - Dictate Date Seen: Feb 02, 2024 Medical Necessity Reason Pt with a Central, PICC or Fol: Yes The following are medically ne: Reyes Catheter Reason for reyes catheter: Strict I&O Subjective Patient seen and examined at bedside. Sedated, intubated on mechanical ventilator. Overnight events reviewed. vital signs Vital Sign Date Time Temp Pulse Resp B/P (MAP) Pulse Ox O2 Delivery O2 Flow Rate FiO2 02/02/24 22:31 72 28 153/83 (106) 92 02/02/24 22:04 60 02/02/24 22:00 Mechanical Ventilator+ 02/02/24 19:45 98.5 98.5 Total Intake and Output 02/01/24 02/01/24 02/02/24 15:00 23:00 07:00 Intake Total 1222.944 ml 1673.523 ml 1236.182 ml Output Total 1100 ml 1325 ml Balance 1222.944 ml 573.523 ml -88.818 ml medications Current Medications Medications Dose Ordered Sig/Reji Route Start Time Stop Time Status Last Admin Dose Admin Ondansetron HCl 4 mg Q4HP PRN IV 01/19/24 20:15 Pantoprazole Sodium 40 mg DAILY IV 01/20/24 10:00 02/02/24 09:34 40 MG Nitroglycerin 0.4 mg Q5MINP PRN SL 01/19/24 20:15 Midazolam HCl 50 ml @ 1 mls/hr Q24H IV 01/19/24 21:30 02/02/24 21:04 15 MLS/HR Aspirin 81 mg DAILY NG 01/20/24 10:00 02/02/24 09:35 81 MG Atorvastatin Calcium 40 mg HS PO 01/20/24 22:00 02/02/24 22:15 40 MG Latanoprost 1 drop QPM EACHEYE 01/20/24 18:00 02/01/24 16:39 1 DROP Patient Own Medication 400 mg MONTHLY IM 01/20/24 11:30 Lisinopril 20 mg DAILY PO 01/20/24 11:30 02/02/24 09:35 20 MG Nitroglycerin 250 ml @ 1.5 mls/hr Q24H IV 01/20/24 20:30 Albuterol 2.5 mg Q4HR NEB 01/20/24 22:00 02/02/24 22:04 2.5 MG Ipratropium [place] 0.5 mg Q4HR NEB 01/20/24 22:00 02/02/24 22:04 0.5 MG Enteral Nutritional Formula 1,000 ml 60ML/HR GT 01/22/24 14:00 02/01/24 20:06 1,000 ML Purified Water 100 ml Q6HR GT 01/22/24 18:00 02/02/24 05:34 100 ML Methylprednisolone Sodium Succinate 60 mg Q4HR IV 01/24/24 16:00 02/02/24 22:14 60 MG Rocuronium [place] 1000 mg/ Dextrose 250 ml @ 20.832 mls/ hr Q12H1M IV 01/24/24 17:30 02/02/24 16:37 24.998 MLS/HR Norepinephrine Bitartrate 250 ml @ 3.75 mls/hr Q24H IV 01/24/24 18:30 01/31/24 04:07 3.75 MLS/HR Vancomycin HCl 300 ml @ 200 mls/hr Q8H IV 01/28/24 02:00 Cancel Linezolid 300 ml @ 150 mls/hr Q12HR IV 01/28/24 22:00 02/02/24 22:15 150 MLS/HR Metoclopramide HCl 10 mg Q8HR IV 01/28/24 14:00 02/02/24 22:14 10 MG Docusate Sodium 100 mg BID GT 01/28/24 22:00 02/02/24 22:15 100 MG Fentanyl Citrate 250 ml @ 2.5 mls/hr Q24H IV 01/29/24 04:00 02/02/24 17:09 35 MLS/HR Hydralazine HCl 10 mg Q6HP PRN IV 01/30/24 13:15 Acetaminophen 650 mg Q4HP PRN PO 01/31/24 07:30 02/01/24 12:21 650 MG Quetiapine Fumarate 50 mg BID PO 01/31/24 10:00 02/02/24 22:15 50 MG Piperacillin Sod/ Tazobactam Sod 100 ml @ 25 mls/hr Q6HR IV 02/01/24 12:00 02/02/24 17:29 25 MLS/HR Furosemide 40 mg BIDD IV 02/02/24 10:30 02/02/24 17:16 40 MG Propofol 100 ml @ 4.599 mls/ hr [id number] IV 02/02/24 22:45 objective Gen.: Patient lying in bed in medical ICU. Sedated, intubated on mechanical ventilator. Head: Normocephalic, atraumatic. Eyes: PERRLA. Ears: Normal external anatomy. Throat: Endotracheal tube and orogastric tube in place. Neck: Supple, trachea midline. Chest: Transmitted breath sounds bilaterally. Decreased air entry bilaterally. No wheezing. Bibasilar crackles. Cardiovascular: Positive S1, positive S2. Regular rate and rhythm. Abdomen: Positive bowel sounds in all 4 quadrants. Soft, nontender, nondistended. : Reyes in place. Normal external genitalia. Rectal: Deferred. Skin: Warm, dry. Intact. Extremities: 2+ radial pulses bilaterally. No lower extremity edema. Neuro: Sedated. laboratory and microbiology Laboratory Tests 02/02/24 10:30 02/02/24 03:58 Test 02/02/24 03:58 Range/Units Serum Glucose 243 H 74-106 mg/dL Assessment/Plan Impression: Acute hypoxic respiratory failure On mechanical ventilator Acute exacerbation of asthma Elevated Troponin Schizophrenia Autism Cannabinoid Use Morbid obesity BMI 60.5 Pulmonary edema Events: Remains on vent support On AC mode with RR 28, VT 500, PEEP 8, FiO2 100% Increase PEEP to 10 cmH2O Increased O2 requirements with turning and linen change Sedated on Propofol, Versed, Fentanyl. Off Levophed,. hemodynamically stable. Rocuronium drip. Leukocytosis: WBC trending up, 24.0 K Increased ET tube secretions - will consider bronchoscopy when FiO2 requirements improve. Patient desaturates at the moment w/ mild suctioning. Taper down FiO2 as tolerated Recommend trach/PEG to liberate from vent. Seroquel 50 mg q.12 hours. ABG reviewed, compensated. Continue bronchodilators IV steroids Continue antibiotics Tube feeds for nutritional support Diurese to euvolemia - Lasix dose increased to BID Monitor renal function Monitor electrolytes. Supplement as necessary. Monitor ins and outs. Mag of 2.2, K 4.4 Labs and imaging reviewed. Rest of plan as noted below. Plan: s/p intubation on mechanical ventilator. On AC mode with RR 28, VT 500, PEEP 8 -->10, FiO2 100% Titrate FIO2 to keep O2 saturation above 90%. VAP bundle. Daily ABG and CXR while intubated Sedate for ventilator synchrony Pt does not tolerate turns. Derecruitment. Turn carefully. Elevated Troponin - Cardiology recs appreciated. Continue bronchodilators Antibiotics. F/u cultures. Pressors if necessary for hemodynamic support Titrate to keep mean arterial pressure greater than 65 mmHg. Diurese to euvolemia Monitor renal function Monitor electrolytes. Supplement as necessary. Monitor ins and outs. Diet and lifestyle modifications for weight reduction Morbid obesity - complicates all care GI prophylaxis. DVT prophylaxis. Prognosis: Poor given patient's multiple co-morbidities. Condition: Critical Rest of plan per hospitalist and other consultants. A total of 35 minutes of critical care time was spent reviewing the patient record, examining the patient, making a diagnostic and therapeutic plan, discussing this plan with the medical personnel, following up on diagnostic studies and following the patient for clinical stability excluding any and all procedures. At least 50% of this time was spent in direct, [id number] contact. Thank you Irma Velasquez NP, for allowing me to participate in this patient's care. Further recommendations will depend on the patient's clinical course. Please do not hesitate to contact me if you have any questions or concerns. This medical document was created using an electronic medical record system with [employer] dictation system. Although these documentations are being carefully reviewed, there may still be some phonetic and typographical changes. The errors are purely typographical, due to imperfection on the software program, and do not reflect any compromise in the patient's medical care. Dietary Evaluation Review Comments: Current Jevity 1.2 @60ml/hr TF is meeting pt's need for protein at 60% for energy at 117% Continue monitor nutrition progress of nutrition support to meet 75% of his needs. Advance to a cardiac diet, texture as tolerated when medically feasible. Expected Outcomes/Goals: gradual weight loss Plan discussed with: Other (SAIGE Martinez) Critical Care Time(min): 35 VERÓNICA MERCER MD Feb 02, 2024 23:09
[2024-02-02] MEDS: PROPOFOL 100 ML IV SCH (23:54)
[2024-02-03] VITALS (116 sets, daily range): BP systolic 123–174; BP diastolic 54–100; PULSE 44–103; RESP 0–29; TEMP 98.3–99.1; O2SAT 88–99
[2024-02-03] MEDS: hydrALAZINE HCL 20 MG/ML VL IV PRN (00:32)
[2024-02-03 03:46] LABS: Calcium 8.7 mg/dL (8.7-10.4); Chloride 99 mmol/L (98-107); Potassium 4.3 mmol/L (3.5-5.1); Sodium 137 mmol/L (136-145)
[2024-02-03 03:47] LABS: Anion Gap 4 (5-15)
[2024-02-03 03:48] LABS: Basophils # (auto) 0 10 ^3/uL (0-0.2); Basophils % (auto) 0.1 % (0.0-2.0); Eosinophils # (auto) 0 10 ^3/uL (0-0.8); Hemoglobin 11.4 g/dL (13.5-17.5); Monocytes # (auto) 0.5 10 ^3/uL (0-1.3); Neutrophils % (auto) 94.7 % (37.0-80.0); Red Cell Distribution Width 18.9 % (11.8-14.3)
[2024-02-03 03:51] LABS: Hematocrit 37.1 % (41.0-53.0); Lymphocytes # (auto) 0.4 10 ^3/uL (0.4-5.4); Lymphocytes % (auto) 2.2 % (10.0-50.0); Mean Corpuscular Hemoglobin 22.3 pg (28.0-32.0); Mean Corpuscular Hgb Conc. 30.8 g/dL (32.0-36.0); Mean Corpuscular Volume 72.6 fL (80.0-100.0); Neutrophils # (auto) 15.5 10 ^3/uL (1.6-8.6); Nucleated Red Blood Cells % 0.3 %; Platelet Count (auto) 139 10^3/uL (140-450); Red Blood Cells 5.11 10^6/uL (4.5-5.90); White Blood Cell 16.3 10^3/uL (4.4-10.8)
[2024-02-03 03:52] LABS: BUN/Creatinine Ratio 31.4 (10.0-20.0); Blood Urea Nitrogen 16 mg/dL (9-23)
[2024-02-03 04:10] LABS: Carbon Dioxide 34 mmol/L (20-31); Glucose 334 mg/dL (74-106)
[2024-02-03 04:37] LABS: COVID19 ANTIGEN SOFIA FIA NEGATIVE (NEGATIVE); Rapid Influenza A Negative (Negative); Rapid Influenza B Negative (Negative)
--- NOTE | 2024-02-03 04:53 | DVH ---
CHEST RADIOGRAPH Indication: INTUBATED Technique: Single frontal view of the chest was obtained Comparison: XY CHEST PORTABLE on DOS: 02/02/24 FINDINGS: Evaluation limited by patient body habitus. Lines and Tubes: The endotracheal tube terminates 5.7 cm above the zbigniew. Left central venous cathet er is unchanged in position. Enteric tube courses below the left hemidiaphragm and outside the field of view. Lungs: Bilateral airspace disease similar to prior study. Pleura: Possible bilateral pleural effusions. No pneumothorax. Cardiomediastinal contours: Stable. Bones: No acute osseous abnormality. IMPRESSION: 1. No significant interval change.
[2024-02-03 07:33] LABS: Base Excess 7.8 mmol/L (-2.0-3.0)
--- NOTE | 2024-02-03 07:49 | DVHPN2 ---
Progress Note - Dictate Date Seen: Feb 03, 2024 Medical Necessity Reason Pt with a Central, PICC or Fol: Yes The following are medically ne: Reyes Catheter Reason for reyes catheter: Strict I&O vital signs Vital Sign Date Time Temp Pulse Resp B/P (MAP) Pulse Ox O2 Delivery O2 Flow Rate FiO2 02/03/24 06:48 129/71 02/03/24 06:46 70 28 88 02/03/24 06:00 60 02/03/24 06:00 Mechanical Ventilator+ 02/03/24 04:01 98.5 98.5 Total Intake and Output 02/02/24 02/02/24 02/03/24 15:00 23:00 07:00 Intake Total 939.600 ml 1315.566 ml 1405.6 ml Output Total 2850 ml 1350 ml Balance 939.600 ml -1534.434 ml 55.6 ml medications Current Medications Medications Dose Ordered Sig/Reji Route Start Time Stop Time Status Last Admin Dose Admin Ondansetron HCl 4 mg Q4HP PRN IV 01/19/24 20:15 Pantoprazole Sodium 40 mg DAILY IV 01/20/24 10:00 02/02/24 09:34 40 MG Nitroglycerin 0.4 mg Q5MINP PRN SL 01/19/24 20:15 Midazolam HCl 50 ml @ 1 mls/hr Q24H IV 01/19/24 21:30 02/03/24 06:04 15 MLS/HR Aspirin 81 mg DAILY NG 01/20/24 10:00 02/02/24 09:35 81 MG Atorvastatin Calcium 40 mg HS PO 01/20/24 22:00 02/02/24 22:15 40 MG Latanoprost 1 drop QPM EACHEYE 01/20/24 18:00 02/01/24 16:39 1 DROP Patient Own Medication 400 mg MONTHLY IM 01/20/24 11:30 Lisinopril 20 mg DAILY PO 01/20/24 11:30 02/02/24 09:35 20 MG Nitroglycerin 250 ml @ 1.5 mls/hr Q24H IV 01/20/24 20:30 Albuterol 2.5 mg Q4HR NEB 01/20/24 22:00 02/03/24 05:37 2.5 MG Ipratropium [place] 0.5 mg Q4HR NEB 01/20/24 22:00 02/03/24 05:37 0.5 MG Enteral Nutritional Formula 1,000 ml 60ML/HR GT 01/22/24 14:00 02/01/24 20:06 1,000 ML Purified Water 100 ml Q6HR GT 01/22/24 18:00 02/03/24 05:31 100 ML Methylprednisolone Sodium Succinate 60 mg Q4HR IV 01/24/24 16:00 02/03/24 05:30 60 MG Rocuronium [place] 1000 mg/ Dextrose 250 ml @ 20.832 mls/ hr Q12H1M IV 01/24/24 17:30 02/03/24 03:25 24.738 MLS/HR Norepinephrine Bitartrate 250 ml @ 3.75 mls/hr Q24H IV 01/24/24 18:30 01/31/24 04:07 3.75 MLS/HR Vancomycin HCl 300 ml @ 200 mls/hr Q8H IV 01/28/24 02:00 Cancel Linezolid 300 ml @ 150 mls/hr Q12HR IV 01/28/24 22:00 02/02/24 22:15 150 MLS/HR Metoclopramide HCl 10 mg Q8HR IV 01/28/24 14:00 02/03/24 05:30 10 MG Docusate Sodium 100 mg BID GT 01/28/24 22:00 02/02/24 22:15 100 MG Fentanyl Citrate 250 ml @ 2.5 mls/hr Q24H IV 01/29/24 04:00 02/03/24 06:48 35 MLS/HR Hydralazine HCl 10 mg Q6HP PRN IV 01/30/24 13:15 02/03/24 00:32 10 MG Acetaminophen 650 mg Q4HP PRN PO 01/31/24 07:30 02/01/24 12:21 650 MG Quetiapine Fumarate 50 mg BID PO 01/31/24 10:00 02/02/24 22:15 50 MG Piperacillin Sod/ Tazobactam Sod 100 ml @ 25 mls/hr Q6HR IV 02/01/24 12:00 02/03/24 05:30 25 MLS/HR Furosemide 40 mg BIDD IV 02/02/24 10:30 02/03/24 05:30 40 MG Propofol 100 ml @ 4.599 mls/ hr [id number] IV 02/02/24 22:45 02/03/24 05:25 36.792 MLS/HR laboratory and microbiology Laboratory Tests 02/03/24 03:07 Test 02/03/24 03:07 Range/Units Serum Glucose 334 H 74-106 mg/dL Assessment/Plan Patient is 28 year old morbidly obese male who presented to ED with shortness of breath. He has been intubated for respiratory failure and in on vent. support. Information was obtained by reviewing the chart and communicating with staff. Cardiology is involved for cardiac aspects of care. There is no report of chest pain prior to presentation. Reportedly, patient has been intubated for usp previously for Asthma in other institution. Intubated and on vent support. Morbidly obese. Does have right sided subclavian access. No JVD. Mucosa is pink and wet. No goiter. Scattered rhonchi is heard. Cardiac: RR, no thrill, no gallop. Abdomen is soft, obese and distended. BS is +. Ext reveal 2+ edema bilaterally. DP is 2+ bilateral PMH reportedly includes Morbid obesity, Asthma (with previous intubations), Autism, Schizophrenia and ANNETTE. Smokes Marijuana and drinks alcohol WBC: 11.6 to 11.2 to 14.2 to 12.2 to 13.3 to 16.4 to 17.5 to 15.3 to 13.8 to 15.7 to 13.8 - 22.2 to 22.3 to 16.3 D-dimer: 0.43 (wnl) Creat: 0.73 - 0.70 - 0.67 - 0.76 - 0.71 - 0.70 - 0.69 - 0.59 - 0.60 - 0.52 - 0.50 - 0.47 - 0.47 - 0.62 - 0.42 - 0.39 - 0.51 K: 4.1 - 4.3 - 4.1 - 4.2 - 4.0 - 4.1 - 4.1 - 3.9 - 4.0 - 3.8 - 4.3 - 4.7 - 4.4 - 4.4 - 4.3 BNP: 561.97 - 173.31 Trop (high sensitive): 61 - 62 - 131 - 132 - 91 - 82 TSH: 0.48 Urine toxicology was positive for Cannabinoids and Benzodiazpin Chest xry revealed: FINDINGS: Lines and Tubes: None Lungs: Obscuration of the left hemidiaphragm Diffuse interstitial prominence. No pneumothorax. Cardiomediastinal contours: Moderate cardiomegaly Bones: No acute osseous abnormality. IMPRESSION: Moderate cardiomegaly with findings suggestive of congestive heart failure. Possible left-sided pleural effusion. Repeat chest xry revealed: Endotracheal tube projects terminating 1.8 cm superior to the zbigniew. Enteric tube is projecting below the GE junction without visualization of the port or tip. Low lung volumes with bronchovascular crowding. Possible small left-sided pleural effusion and/or atelectasis. No pneumothorax. Repeat chest xry revealed: Cardiomediastinal silhouette is enlarged. There is increased pulmonary vascular congestion, similar prior examination. Obscuration of the left hemidiaphragm may be on the basis of technique versus small pleural effusion. No discrete pneumothorax. Endotracheal tube and enteric tube are redemonstrated. Left IJ catheter tip is likely at the region of the brachiocephalic vein. Repeat chest xry revealed: FINDINGS: Cardiomediastinal silhouette is enlarged. There is increased pulmonary vascular congestion, similar prior examination. Obscuration of the left hemidiaphragm may be on the basis of technique versus small pleural effusion. No discrete pneumothorax. Endotracheal tube and enteric tube are redemonstrated. Left IJ catheter tip is likely at the region of the brachiocephalic vein. IMPRESSION: NO INTERVAL CHANGE. Repeat chest xry revealed: IMPRESSION: Improving pulmonary edema compared to prior exam. Repeat chest xry revealed: IMPRESSION: stable pulmonary edema compared to prior exam. Repeat chest xry revealed: IMPRESSION: Lines and tubes in satisfactory position. No significant interval change. Repeat chest xry revealed: IMPRESSION: Lines and tubes in satisfactory position. No significant interval change. Repeat chest xry revealed: IMPRESSION: Lines and tubes in satisfactory position. No significant interval change. Repeat chest xry: IMPRESSION: 1. Stable position of the support lines and tubes. 2. No significant change in diffuse bilateral airspace opacities. Repeat chest xry revealed: IMPRESSION: 1. Endotracheal tube terminates 6.4 symbol the zbigniew. 2. Bilateral airspace disease unchanged. Repeat chest xry revealed: IMPRESSION: 1. Endotracheal tube 4.1 cm above the zbigniew. 2. OG tube not visualized AND may BE IN THE RIGHT MAINSTEM BRONCHUS RECOMMEND REMOVAL AND REPOSITIONING WITH REPEAT CHEST X-RAY. Repeat chest xry revealed: FINDINGS: Endotracheal tube in place 4.4 cm above the zbigniew. Left internal jugular catheter in place in the superior vena cava. Cardiomegaly is noted with pulmonary vascular congestion findings may represent congestive failure other possibility such as pneumonia are in the differential. IMPRESSION: 1. Cardiomegaly with findings of pulmonary vascular congestion. Findings may represent congestive failure or pneumonia. Repeat chest xry revealed: Lines and Tubes: The endotracheal tube terminates 3.1 cm above the zbigniew. Left central venous catheter terminates in the superior vena cava. Enteric tube is visualized to the mid chest but not visualized below the left hemidiaphragm. Lungs: Bilateral airspace disease. Pleura: No effusion. No pneumothorax. Cardiomediastinal contours: Stable cardiomegaly. Bones: No acute osseous abnormality. IMPRESSION: 1. Enteric tube not visualized below the left hemidiaphragm. 2. Bilateral airspace disease similar to prior exam. Repeat chest xry revealed: Limited evaluation given patient positioning. The heart appears markedly enlarged. There are low lung volumes with moderate alveolar airspace opacities suggesting pulmonary edema. No discrete pneumothorax. Endotracheal tube appear stable. Enteric tube is not well visualized. Repeat chest xry revealed: IMPRESSION: 1. Stable appearance of the support lines and tubes. 2. Pulmonary opacities, unchanged. Repeat chest xry revealed: Evaluation limited by patient body habitus. Lines and Tubes: The endotracheal tube terminates 5.7 cm above the zbigniew. Left central venous catheter is unchanged in position. Enteric tube courses below the left hemidiaphragm and outside the field of view. Lungs: Bilateral airspace disease similar to prior study. Pleura: Possible bilateral pleural effusions. No pneumothorax. Cardiomediastinal contours: Stable. Bones: No acute osseous abnormality. IMPRESSION: 1. No significant interval change. KUB revealed: Impression: 1. Nonobstructive bowel gas pattern. 2. Enteric tube overlying the plane of the stomach. 3. No visualized renal calculi. Venous duplex of lower ext revealed: Impression: 1. No right or left femoropopliteal venous thrombosis. 2. Left common femoral vein and proximal superficial femoral vein are not visible and therefore thrombus can not be excluded in those areas. EKG revealed: Sinus tachycardia with non-specific STT changes Tele reveals Sinus rhythm Echocardiogram revealed: Technically limited study secondary to poor acoustic windows. Left ventricle: Left ventricle was normal-sized with normal systolic function. LVEF was 60-65%. There was no gross wall motion abnormality observed. Right ventricle was not well visualized but it was dilated. Left atrium was normal-sized. Right atrium was not well visualized. Aortic valve was trileaflet and normal. There was no aortic insufficiency/stenosis. There was trivial mitral and tricuspid regurgitation. There was mild pulmonary valve insufficiency. As there was no good tricuspid regurgitation jet, right ventricular systolic pressure could not be estimated. There was no pericardial effusion. Patient is 28 year old male with history of morbid obesity who presented with respiratory failure. Does have history of Asthma and reportedly has been intubated for it before. Trop has been mildly elevated. ACS is less likely and increase in troponin most likely represents demand physiology. Still, component of type 1 physiology cannot be completely ruled out. Echo revealed dilated RV. As there was no good TR jet, RVSP could not be estimated. Pulmonary Hypertension cannot be ruled out. Pulmonary on board. On sedation Acute respiratory failure Asthma Asthma exacerbation Morbid obesity Abnormal trop Questionable heart failure, acute Cardiac suggestion for management: Manage in ICU IV diuresis Follow up electrolytes and kidney function test and correct abnormalities. Keep potassium above 4 and magnesium above 2 Lovenox ASA Follow up vital signs and correct hyper/hypotension. If needed add pressure support to keep MAP above 65 mmHg Pulmonary follow up Further evaluation and management depends on the above and clinical course A total of 75 minutes was spent reviewing the patient record, examining the patient, making a diagnostic and therapeutic plan, discussing this plan with medical personnel, following up on diagnostic studies and following the patient for clinical stability excluding any and all procedures. At least 50% of this time was spent in direct, [id number] contact. Thank you for allowing me to participate in this patient's care. Further recommendations will depend on patient's clinical course. Please do not hesitate to contact me if you have any questions or concerns. This medical document was created using electronic medical record system with [employer] computerized dictation system. Although this document has been carefully reviewed, there may still be some phonetic and typographical errors. These areas are purely typographical due to the imperfection of the software programs, and do not reflect any compromise in the patient's medical care. Dietary Evaluation Review Comments: Current Jevity 1.2 @60ml/hr TF is meeting pt's need for protein at 60% for energy at 117% Continue monitor nutrition progress of nutrition support to meet 75% of his needs. Advance to a cardiac diet, texture as tolerated when medically feasible. Expected Outcomes/Goals: gradual weight loss Plan discussed with: Other (nurse) PARRIS MCKINNON MD Feb 03, 2024 07:49
--- NOTE | 2024-02-03 12:09 | DVHPN2 ---
Progress Note - Dictate Date Seen: Feb 03, 2024 Medical Necessity Reason Pt with a Central, PICC or Fol: Yes The following are medically ne: Reyes Catheter Reason for reyes catheter: Strict I&O vital signs Vital Sign Date Time Temp Pulse Resp B/P (MAP) Pulse Ox O2 Delivery O2 Flow Rate FiO2 02/03/24 10:00 28 93 Mechanical Ventilator+ 100 100 02/03/24 10:00 70 02/03/24 09:55 150/76 02/03/24 04:01 98.5 98.5 Total Intake and Output 02/02/24 02/02/24 02/03/24 15:00 23:00 07:00 Intake Total 939.600 ml 1315.566 ml 1542.1 ml Output Total 2850 ml 1350 ml Balance 939.600 ml -1534.434 ml 192.1 ml medications Current Medications Medications Dose Ordered Sig/Reji Route Start Time Stop Time Status Last Admin Dose Admin Ondansetron HCl 4 mg Q4HP PRN IV 01/19/24 20:15 Pantoprazole Sodium 40 mg DAILY IV 01/20/24 10:00 02/03/24 09:54 40 MG Nitroglycerin 0.4 mg Q5MINP PRN SL 01/19/24 20:15 Midazolam HCl 50 ml @ 1 mls/hr Q24H IV 01/19/24 21:30 02/03/24 09:53 15 MLS/HR Aspirin 81 mg DAILY NG 01/20/24 10:00 02/03/24 09:54 81 MG Atorvastatin Calcium 40 mg HS PO 01/20/24 22:00 02/02/24 22:15 40 MG Latanoprost 1 drop QPM EACHEYE 01/20/24 18:00 02/01/24 16:39 1 DROP Patient Own Medication 400 mg MONTHLY IM 01/20/24 11:30 Lisinopril 20 mg DAILY PO 01/20/24 11:30 02/03/24 09:55 20 MG Nitroglycerin 250 ml @ 1.5 mls/hr Q24H IV 01/20/24 20:30 Albuterol 2.5 mg Q4HR NEB 01/20/24 22:00 02/03/24 09:39 2.5 MG Ipratropium [place] 0.5 mg Q4HR NEB 01/20/24 22:00 02/03/24 09:39 0.5 MG Enteral Nutritional Formula 1,000 ml 60ML/HR GT 01/22/24 14:00 02/01/24 20:06 1,000 ML Purified Water 100 ml Q6HR GT 01/22/24 18:00 02/03/24 09:55 100 ML Methylprednisolone Sodium Succinate 60 mg Q4HR IV 01/24/24 16:00 02/03/24 09:54 60 MG Rocuronium [place] 1000 mg/ Dextrose 250 ml @ 20.832 mls/ hr Q12H1M IV 01/24/24 17:30 02/03/24 03:25 24.738 MLS/HR Norepinephrine Bitartrate 250 ml @ 3.75 mls/hr Q24H IV 01/24/24 18:30 01/31/24 04:07 3.75 MLS/HR Vancomycin HCl 300 ml @ 200 mls/hr Q8H IV 01/28/24 02:00 Cancel Linezolid 300 ml @ 150 mls/hr Q12HR IV 01/28/24 22:00 02/03/24 09:51 150 MLS/HR Metoclopramide HCl 10 mg Q8HR IV 01/28/24 14:00 02/03/24 05:30 10 MG Docusate Sodium 100 mg BID GT 01/28/24 22:00 02/03/24 09:54 100 MG Fentanyl Citrate 250 ml @ 2.5 mls/hr Q24H IV 01/29/24 04:00 02/03/24 06:48 35 MLS/HR Hydralazine HCl 10 mg Q6HP PRN IV 01/30/24 13:15 02/03/24 00:32 10 MG Acetaminophen 650 mg Q4HP PRN PO 01/31/24 07:30 02/01/24 12:21 650 MG Quetiapine Fumarate 50 mg BID PO 01/31/24 10:00 02/03/24 09:55 50 MG Piperacillin Sod/ Tazobactam Sod 100 ml @ 25 mls/hr Q6HR IV 02/01/24 12:00 02/03/24 05:30 25 MLS/HR Furosemide 40 mg BIDD IV 02/02/24 10:30 02/03/24 05:30 40 MG Propofol 100 ml @ 4.599 mls/ hr [id number] IV 02/02/24 22:45 02/03/24 07:52 4.599 MLS/HR Amino Acids 0 ml @ 0 mls/hr PER PHARMACY IV 02/03/24 12:15 Diagnostic Test (Pha) 1 strip Q6HR 02/03/24 18:00 Insulin Human Regular FOLLOW SLIDING SCALE Q6HR SC 02/03/24 18:00 Dextrose 50 ml UD IV 02/03/24 12:15 objective General Appearance: alert, no distress HEENT: EOMI, PERRLA, normal external inspect of ears, no icterus, no nasal drainage Neck: no carotid bruit, no jugular venous distention (JVD), no lymphadenopathy Chest: normal thorax Respiratory: clear to auscultation Cardiovascular: regular rate and rhythm, no diastolic murmur, no jugular venous distention (JVD), no rub, no systolic murmur Abdominal: soft, no hepatomegaly, no mass, no splenomegaly, no tenderness Genitourinary: grossly normal external Musculoskeletal: no joint tenderness, no swelling Extremities: normal pulses, no calf tenderness, no clubbing, no cyanosis, no edema Skin: no bruising, no jaundice, no rash Neurological: alert, No focal deficit laboratory and microbiology Laboratory Tests 02/03/24 03:07 Test 02/03/24 03:07 Range/Units Serum Glucose 334 H 74-106 mg/dL Problem List 1. Asthma with acute exacerbation Pulmonary consult, monitoring 2. Acute hypoxic respiratory failure requiring intubation Pulmonary Consult 3. Schizophrenia Monitoring 4. Autism Medication, monitoring 5. Elevated Troponin Cardiology Consult, monitoring 6. Cannabis Use Education Assessment/Plan Subjective Patient is not awake and alert. Objective Patient is currently sedated and on a paralytic. Patient is going to be transitioned from tube feeding to TPN. Per pulmonary patient may need a tracheostomy and PEG tube placement. Patient was admitted on January 19, 2024 for respiratory failure acute asthma exacerbation. Patient has possible congestive heart failure and close likely underlying pneumonia. Plan Continue antibiotics. Ventilator management per pulmonary. Monitor daily labs. Monitor urine output. Start TPN for nutritional support. Dietary Evaluation Review Comments: Current Jevity 1.2 @60ml/hr TF is meeting pt's need for protein at 60% for energy at 117% Continue monitor nutrition progress of nutrition support to meet 75% of his needs. Advance to a cardiac diet, texture as tolerated when medically feasible. Expected Outcomes/Goals: gradual weight loss Plan discussed with: Patient, Other VIK COBOS NP Feb 03, 2024 12:09
[2024-02-03] MEDS ORDERED: TPN PER PHARMACY 0 ML IV SCH (12:15)
[2024-02-03] MEDS ORDERED: DEXTROSE (50%) 50ML SYRG IV SCH (12:15)
--- NOTE | 2024-02-03 16:44 | DVHPN2 ---
Progress Note - Dictate Date Seen: Feb 03, 2024 Medical Necessity Reason Pt with a Central, PICC or Fol: Yes The following are medically ne: Reyes Catheter Reason for reyes catheter: Strict I&O Subjective Patient remains intubated. No new acute complaints noted at this time. FIO2 100% vital signs Vital Sign Date Time Temp Pulse Resp B/P (MAP) Pulse Ox O2 Delivery O2 Flow Rate FiO2 02/03/24 16:13 53 28 164/85 (111) 94 100 02/03/24 14:00 Mechanical Ventilator+ 02/03/24 04:01 98.5 98.5 Total Intake and Output 02/02/24 02/02/24 02/03/24 15:00 23:00 07:00 Intake Total 939.600 ml 1315.566 ml 1542.1 ml Output Total 2850 ml 1350 ml Balance 939.600 ml -1534.434 ml 192.1 ml medications Current Medications Medications Dose Ordered Sig/Reji Route Start Time Stop Time Status Last Admin Dose Admin Ondansetron HCl 4 mg Q4HP PRN IV 01/19/24 20:15 Pantoprazole Sodium 40 mg DAILY IV 01/20/24 10:00 02/03/24 09:54 40 MG Nitroglycerin 0.4 mg Q5MINP PRN SL 01/19/24 20:15 Midazolam HCl 50 ml @ 1 mls/hr Q24H IV 01/19/24 21:30 02/03/24 13:19 15 MLS/HR Aspirin 81 mg DAILY NG 01/20/24 10:00 02/03/24 09:54 81 MG Atorvastatin Calcium 40 mg HS PO 01/20/24 22:00 02/02/24 22:15 40 MG Latanoprost 1 drop QPM EACHEYE 01/20/24 18:00 02/01/24 16:39 1 DROP Patient Own Medication 400 mg MONTHLY IM 01/20/24 11:30 Lisinopril 20 mg DAILY PO 01/20/24 11:30 02/03/24 09:55 20 MG Nitroglycerin 250 ml @ 1.5 mls/hr Q24H IV 01/20/24 20:30 Albuterol 2.5 mg Q4HR NEB 01/20/24 22:00 02/03/24 14:05 2.5 MG Ipratropium [place] 0.5 mg Q4HR NEB 01/20/24 22:00 02/03/24 14:05 0.5 MG Enteral Nutritional Formula 1,000 ml 60ML/HR GT 01/22/24 14:00 02/01/24 20:06 1,000 ML Purified Water 100 ml Q6HR GT 01/22/24 18:00 02/03/24 09:55 100 ML Methylprednisolone Sodium Succinate 60 mg Q4HR IV 01/24/24 16:00 02/03/24 13:11 60 MG Rocuronium [place] 1000 mg/ Dextrose 250 ml @ 20.832 mls/ hr Q12H1M IV 01/24/24 17:30 02/03/24 16:05 22.915 MLS/HR Norepinephrine Bitartrate 250 ml @ 3.75 mls/hr Q24H IV 01/24/24 18:30 01/31/24 04:07 3.75 MLS/HR Vancomycin HCl 300 ml @ 200 mls/hr Q8H IV 01/28/24 02:00 Cancel Linezolid 300 ml @ 150 mls/hr Q12HR IV 01/28/24 22:00 02/03/24 09:51 150 MLS/HR Metoclopramide HCl 10 mg Q8HR IV 01/28/24 14:00 02/03/24 13:11 10 MG Docusate Sodium 100 mg BID GT 01/28/24 22:00 02/03/24 09:54 100 MG Fentanyl Citrate 250 ml @ 2.5 mls/hr Q24H IV 01/29/24 04:00 02/03/24 13:23 35 MLS/HR Hydralazine HCl 10 mg Q6HP PRN IV 01/30/24 13:15 02/03/24 00:32 10 MG Acetaminophen 650 mg Q4HP PRN PO 01/31/24 07:30 02/01/24 12:21 650 MG Quetiapine Fumarate 50 mg BID PO 01/31/24 10:00 02/03/24 09:55 50 MG Piperacillin Sod/ Tazobactam Sod 100 ml @ 25 mls/hr Q6HR IV 02/01/24 12:00 02/03/24 13:11 25 MLS/HR Furosemide 40 mg BIDD IV 02/02/24 10:30 02/03/24 05:30 40 MG Propofol 100 ml @ 4.599 mls/ hr [id number] IV 02/02/24 22:45 02/03/24 12:32 36.792 MLS/HR Amino Acids 0 ml @ 0 mls/hr PER PHARMACY IV 02/03/24 12:15 Diagnostic Test (Pha) 1 strip Q6HR 02/03/24 18:00 Insulin Human Regular FOLLOW SLIDING SCALE Q6HR SC 02/03/24 18:00 Dextrose 50 ml UD IV 02/03/24 12:15 Sodium Chloride 60 meq/Sodium Phosphate 40 meq/ Potassium Chloride 20 meq/ Magnesium Sulfate 4 meq/ Multivitamins 10 ml/Insulin Human Regular 12 units/ Amino Acids/ Dextrose/Purified Water 996.12 ml @ 42 mls/hr [id number] IV 02/03/24 22:00 02/04/24 21:59 objective Gen.: Patient lying in bed in medical ICU. Sedated, intubated on mechanical ventilator. Head: Normocephalic, atraumatic. Eyes: PERRLA. Ears: Normal external anatomy. Throat: Endotracheal tube and orogastric tube in place. Neck: Supple, trachea midline. Chest: Decreased air entry bilaterally. No wheezing. Bibasilar crackles. Cardiovascular: Positive S1, positive S2. Regular rate and rhythm. Abdomen: . Soft, nontender, nondistended. : Reyes in place. Normal external genitalia. Rectal: Deferred. Skin: Warm, dry. Intact. Extremities: No lower extremity edema. Neuro: Sedated. laboratory and microbiology Laboratory Tests 02/03/24 03:07 Test 02/03/24 03:07 Range/Units Serum Glucose 334 H 74-106 mg/dL Assessment/Plan Patient is a 28-year-old male presented to the hospital with: Multifocal pneumonia: [place] ARDS Acute hypoxic respiratory failure On mechanical ventilator Coag negative staphylococcus bacteremia Acute exacerbation of asthma Elevated Troponin Schizophrenia Autism Cannabinoid Use Morbid obesity BMI 60.5 Pulmonary edema Recommendations: reviewed cultures since admission listed below Culture History: 01/21, Blood culture showed Growth Of Coagulase Negative Staphylococcus 01/30, Urine culture: No growth monitored 01/30, Sputum culture showed Klebsiella pneumoniae MRSA screen neg antibiotics history Vancomycin Linezolid 01/27- Zosyn: 01/31- now blood cx seems to look contaminations, + 1/2. discontinue Linezolid CXR shows multifocal infiltrate suggestive of ARDS, he is requiring high FIO2, possibly associated with pulm edema and bacterial pneumonia [place] is pansensitive, taper zosyn to ceftriaxone or cefepime. pulmonary is on board, possible plan for bronchoscopy prognosis is very poor. critical time 35 minutes spent. plan discussed with RN at bedside. Thank you for consult and for giving an opportunity to take care of this patient. Dietary Evaluation Review Comments: Current Jevity 1.2 @60ml/hr TF is meeting pt's need for protein at 60% for energy at 117% Continue monitor nutrition progress of nutrition support to meet 75% of his needs. Advance to a cardiac diet, texture as tolerated when medically feasible. Expected Outcomes/Goals: gradual weight loss Plan discussed with: EBEN Singh MD Feb 03, 2024 16:44
[2024-02-03] MEDS: ACCU-CHEK COMFORT CURVE STRIP VI SCH (17:11)
[2024-02-03] MEDS: InsuLIN REG 1unit/0.01ml Soln (100units/ml) SC SCH (17:11)
--- NOTE | 2024-02-03 19:57 | DVHPN2 ---
Progress Note - Dictate Date Seen: Feb 03, 2024 Medical Necessity Reason Pt with a Central, PICC or Fol: Yes The following are medically ne: Reyes Catheter Reason for reyes catheter: Strict I&O Subjective Patient seen and examined at bedside. Sedated, intubated on mechanical ventilator. Overnight events reviewed. vital signs Vital Sign Date Time Temp Pulse Resp B/P (MAP) Pulse Ox O2 Delivery O2 Flow Rate FiO2 02/03/24 18:31 69 28 141/78 (99) 98 02/03/24 18:21 100 02/03/24 18:01 98.6 98.6 02/03/24 16:00 Mechanical Ventilator+ Total Intake and Output 02/02/24 02/02/24 02/03/24 15:00 23:00 07:00 Intake Total 939.600 ml 1315.566 ml 1542.1 ml Output Total 2850 ml 1350 ml Balance 939.600 ml -1534.434 ml 192.1 ml medications Current Medications Medications Dose Ordered Sig/Reji Route Start Time Stop Time Status Last Admin Dose Admin Ondansetron HCl 4 mg Q4HP PRN IV 01/19/24 20:15 Pantoprazole Sodium 40 mg DAILY IV 01/20/24 10:00 02/03/24 09:54 40 MG Nitroglycerin 0.4 mg Q5MINP PRN SL 01/19/24 20:15 Midazolam HCl 50 ml @ 1 mls/hr Q24H IV 01/19/24 21:30 02/03/24 17:27 12 MLS/HR Aspirin 81 mg DAILY NG 01/20/24 10:00 02/03/24 09:54 81 MG Atorvastatin Calcium 40 mg HS PO 01/20/24 22:00 02/02/24 22:15 40 MG Latanoprost 1 drop QPM EACHEYE 01/20/24 18:00 02/01/24 16:39 1 DROP Patient Own Medication 400 mg MONTHLY IM 01/20/24 11:30 Lisinopril 20 mg DAILY PO 01/20/24 11:30 02/03/24 09:55 20 MG Nitroglycerin 250 ml @ 1.5 mls/hr Q24H IV 01/20/24 20:30 Albuterol 2.5 mg Q4HR NEB 01/20/24 22:00 02/03/24 18:21 2.5 MG Ipratropium [place] 0.5 mg Q4HR NEB 01/20/24 22:00 02/03/24 18:21 0.5 MG Enteral Nutritional Formula 1,000 ml 60ML/HR GT 01/22/24 14:00 02/01/24 20:06 1,000 ML Purified Water 100 ml Q6HR GT 01/22/24 18:00 02/03/24 18:30 100 ML Methylprednisolone Sodium Succinate 60 mg Q4HR IV 01/24/24 16:00 02/03/24 18:29 60 MG Rocuronium [place] 1000 mg/ Dextrose 250 ml @ 20.832 mls/ hr Q12H1M IV 01/24/24 17:30 02/03/24 16:05 22.915 MLS/HR Norepinephrine Bitartrate 250 ml @ 3.75 mls/hr Q24H IV 01/24/24 18:30 01/31/24 04:07 3.75 MLS/HR Vancomycin HCl 300 ml @ 200 mls/hr Q8H IV 01/28/24 02:00 Cancel Linezolid 300 ml @ 150 mls/hr Q12HR IV 01/28/24 22:00 02/03/24 09:51 150 MLS/HR Metoclopramide HCl 10 mg Q8HR IV 01/28/24 14:00 02/03/24 13:11 10 MG Docusate Sodium 100 mg BID GT 01/28/24 22:00 02/03/24 09:54 100 MG Fentanyl Citrate 250 ml @ 2.5 mls/hr Q24H IV 01/29/24 04:00 02/03/24 13:23 35 MLS/HR Hydralazine HCl 10 mg Q6HP PRN IV 01/30/24 13:15 02/03/24 00:32 10 MG Acetaminophen 650 mg Q4HP PRN PO 01/31/24 07:30 02/01/24 12:21 650 MG Quetiapine Fumarate 50 mg BID PO 01/31/24 10:00 02/03/24 09:55 50 MG Piperacillin Sod/ Tazobactam Sod 100 ml @ 25 mls/hr Q6HR IV 02/01/24 12:00 02/03/24 18:31 25 MLS/HR Furosemide 40 mg BIDD IV 02/02/24 10:30 02/03/24 18:30 40 MG Propofol 100 ml @ 4.599 mls/ hr [id number] IV 02/02/24 22:45 02/03/24 12:32 36.792 MLS/HR Amino Acids 0 ml @ 0 mls/hr PER PHARMACY IV 02/03/24 12:15 Diagnostic Test (Pha) 1 strip Q6HR 02/03/24 18:00 Insulin Human Regular FOLLOW SLIDING SCALE Q6HR SC 02/03/24 18:00 Dextrose 50 ml UD IV 02/03/24 12:15 Sodium Chloride 60 meq/Sodium Phosphate 40 meq/ Potassium Chloride 20 meq/ Magnesium Sulfate 4 meq/ Multivitamins 10 ml/Insulin Human Regular 12 units/ Amino Acids/ Dextrose/Purified Water 996.12 ml @ 42 mls/hr [id number] IV 02/03/24 22:00 02/04/24 21:59 objective Gen.: Patient lying in bed in medical ICU. Sedated, intubated on mechanical ventilator. Head: Normocephalic, atraumatic. Eyes: PERRLA. Ears: Normal external anatomy. Throat: Endotracheal tube and orogastric tube in place. Neck: Supple, trachea midline. Chest: Transmitted breath sounds bilaterally. Decreased air entry bilaterally. No wheezing. Bibasilar crackles. Cardiovascular: Positive S1, positive S2. Regular rate and rhythm. Abdomen: Positive bowel sounds in all 4 quadrants. Soft, nontender, nondistended. : Reyes in place. Normal external genitalia. Rectal: Deferred. Skin: Warm, dry. Intact. Extremities: 2+ radial pulses bilaterally. No lower extremity edema. Neuro: Sedated. laboratory and microbiology Laboratory Tests 02/03/24 03:07 Test 02/03/24 03:07 Range/Units Serum Glucose 334 H 74-106 mg/dL Assessment/Plan Impression: Acute hypoxic respiratory failure On mechanical ventilator Acute exacerbation of asthma Elevated Troponin Schizophrenia Autism Cannabinoid Use Morbid obesity BMI 60.5 Pulmonary edema Events: Remains on vent support On AC mode with RR 28, VT 500, PEEP 10, FiO2 100% Will increase PEEP to 12 cmH2O Increased O2 requirements with turning and linen change Sedated on Propofol, Versed, Fentanyl Rocuronium drip for paralytic. Leukocytosis: WBC trending down, 24.0 --> 16.3 K Increased ET tube secretions - will consider bronchoscopy when FiO2 requirements improve. Patient desaturates at the moment w/ mild suctioning. Taper down FiO2 as tolerated Recommend trach/PEG to liberate from vent. ABG reviewed, notable for alkalemia. CXR demonstrates devices in place, bilateral airspace disease similar to prior study. Possible bilateral pleural effusions. Seroquel 50 mg q.12 hours. Continue bronchodilators IV steroids Continue antibiotics Tube feeds for nutritional support Diurese to euvolemia - Lasix BID Monitor renal function Monitor electrolytes. Supplement as necessary. Monitor ins and outs. Labs and imaging reviewed. Rest of plan as noted below. Plan: s/p intubation on mechanical ventilator. On AC mode with RR 28, VT 500, PEEP 10 -->12, FiO2 100% Titrate FIO2 to keep O2 saturation above 90%. VAP bundle. Daily ABG and CXR while intubated Sedate for ventilator synchrony Pt does not tolerate turns. Derecruitment. Turn carefully. Elevated Troponin - Cardiology recs appreciated. Continue bronchodilators Antibiotics. F/u cultures. Pressors if necessary for hemodynamic support Titrate to keep mean arterial pressure greater than 65 mmHg. Currently off pressors, hemodynamically stable. Diurese to euvolemia Monitor renal function Monitor electrolytes. Supplement as necessary. Monitor ins and outs. Diet and lifestyle modifications for weight reduction Morbid obesity - complicates all care GI prophylaxis. DVT prophylaxis. Prognosis: Poor given patient's multiple co-morbidities. Condition: Critical Rest of plan per hospitalist and other consultants. A total of 35 minutes of critical care time was spent reviewing the patient record, examining the patient, making a diagnostic and therapeutic plan, discussing this plan with the medical personnel, following up on diagnostic studies and following the patient for clinical stability excluding any and all procedures. At least 50% of this time was spent in direct, [id number] contact. Thank you Irma Velasquez NP, for allowing me to participate in this patient's care. Further recommendations will depend on the patient's clinical course. Please do not hesitate to contact me if you have any questions or concerns. This medical document was created using an electronic medical record system with [employer] system. Although these documentations are being carefully reviewed, there may still be some phonetic and typographical changes. The errors are purely typographical, due to imperfection on the software program, and do not reflect any compromise in the patient's medical care. Dietary Evaluation Review Comments: Current Jevity 1.2 @60ml/hr TF is meeting pt's need for protein at 60% for energy at 117% Continue monitor nutrition progress of nutrition support to meet 75% of his needs. Advance to a cardiac diet, texture as tolerated when medically feasible. Expected Outcomes/Goals: gradual weight loss Plan discussed with: Other (SAIGE Grace) Critical Care Time(min): 35 VERÓNICA MERCER MD Feb 03, 2024 19:57
[2024-02-03] MEDS: TPN PER PHARMACY IV NR (21:32)
[2024-02-04] VITALS (122 sets, daily range): BP systolic 110–172; BP diastolic 41–96; PULSE 42–152; RESP 17–30; TEMP 97.9–98.7; O2SAT 91–100
[2024-02-04 04:21] LABS: Alkaline Phosphatase 110 U/L (46-116); Anion Gap 5 (5-15); BUN/Creatinine Ratio 36.5 (10.0-20.0); Blood Urea Nitrogen 19 mg/dL (9-23); Magnesium 2.2 mg/dL (1.6-2.6); Potassium 4.3 mmol/L (3.5-5.1); Sodium 137 mmol/L (136-145)
[2024-02-04 04:22] LABS: Aspartate Aminotransferase 28 U/L (13-40); Phosphorus 3.1 mg/dL (2.4-5.1)
[2024-02-04 04:25] LABS: Alanine Aminotransferase 72 U/L (7-40); Albumin 3.1 g/dL (3.2-4.8); Bilirubin, Total 1.8 mg/dL (0.2-1.0); Calcium 7.3 mg/dL (8.7-10.4); Carbon Dioxide 34 mmol/L (20-31); Chloride 98 mmol/L (98-107); Glucose 352 mg/dL (74-106); Total Protein 5.5 g/dL (5.7-8.2)
[2024-02-04 04:52] LABS: Triglycerides 182 mg/dL (< 150)
[2024-02-04] MEDS: CALCIUM GLUC 1,000mg/50ml-NS 50 ML IV ONE (06:43)
[2024-02-04 07:49] LABS: Base Excess 7.6 mmol/L (-2.0-3.0)
[2024-02-04] MEDS: INSULIN LANTUS (GLARGINE) 1 /0.01ml (100units/ml) SC SCH (11:01)
--- NOTE | 2024-02-04 11:04 | DVHPN2 ---
Progress Note - Dictate Date Seen: Feb 04, 2024 Medical Necessity Reason Pt with a Central, PICC or Fol: Yes The following are medically ne: Reyes Catheter Reason for reyes catheter: Strict I&O vital signs Vital Sign Date Time Temp Pulse Resp B/P (MAP) Pulse Ox O2 Delivery O2 Flow Rate FiO2 02/04/24 11:02 140/73 02/04/24 09:41 61 28 97 60 02/04/24 08:00 Mechanical Ventilator+ 02/04/24 05:17 98.5 98.5 Total Intake and Output 02/03/24 02/03/24 02/04/24 15:00 23:00 07:00 Intake Total 1341.3 ml 988.2 ml 1618.4 ml Output Total 1050 ml 2500 ml Balance 1341.3 ml -61.8 ml -881.6 ml medications Current Medications Medications Dose Ordered Sig/Reji Route Start Time Stop Time Status Last Admin Dose Admin Ondansetron HCl 4 mg Q4HP PRN IV 01/19/24 20:15 Pantoprazole Sodium 40 mg DAILY IV 01/20/24 10:00 02/04/24 10:28 40 MG Nitroglycerin 0.4 mg Q5MINP PRN SL 01/19/24 20:15 Midazolam HCl 50 ml @ 1 mls/hr Q24H IV 01/19/24 21:30 02/04/24 08:28 15 MLS/HR Aspirin 81 mg DAILY NG 01/20/24 10:00 02/04/24 10:29 81 MG Atorvastatin Calcium 40 mg HS PO 01/20/24 22:00 02/03/24 21:32 40 MG Latanoprost 1 drop QPM EACHEYE 01/20/24 18:00 02/01/24 16:39 1 DROP Patient Own Medication 400 mg MONTHLY IM 01/20/24 11:30 Lisinopril 20 mg DAILY PO 01/20/24 11:30 02/03/24 09:55 20 MG Nitroglycerin 250 ml @ 1.5 mls/hr Q24H IV 01/20/24 20:30 Albuterol 2.5 mg Q4HR NEB 01/20/24 22:00 02/04/24 09:41 2.5 MG Ipratropium [place] 0.5 mg Q4HR NEB 01/20/24 22:00 02/04/24 09:41 0.5 MG Enteral Nutritional Formula 1,000 ml 60ML/HR GT 01/22/24 14:00 02/01/24 20:06 1,000 ML Methylprednisolone Sodium Succinate 60 mg Q4HR IV 01/24/24 16:00 02/04/24 10:29 60 MG Rocuronium [place] 1000 mg/ Dextrose 250 ml @ 20.832 mls/ hr Q12H1M IV 01/24/24 17:30 02/04/24 08:56 10.416 MLS/HR Norepinephrine Bitartrate 250 ml @ 3.75 mls/hr Q24H IV 01/24/24 18:30 01/31/24 04:07 3.75 MLS/HR Vancomycin HCl 300 ml @ 200 mls/hr Q8H IV 01/28/24 02:00 Cancel Linezolid 300 ml @ 150 mls/hr Q12HR IV 01/28/24 22:00 02/04/24 10:32 150 MLS/HR Metoclopramide HCl 10 mg Q8HR IV 01/28/24 14:00 02/04/24 05:39 10 MG Docusate Sodium 100 mg BID GT 01/28/24 22:00 02/04/24 10:28 100 MG Fentanyl Citrate 250 ml @ 2.5 mls/hr Q24H IV 01/29/24 04:00 02/04/24 11:02 35 MLS/HR Hydralazine HCl 10 mg Q6HP PRN IV 01/30/24 13:15 02/03/24 00:32 10 MG Acetaminophen 650 mg Q4HP PRN PO 01/31/24 07:30 02/01/24 12:21 650 MG Quetiapine Fumarate 50 mg BID PO 01/31/24 10:00 02/04/24 10:32 50 MG Piperacillin Sod/ Tazobactam Sod 100 ml @ 25 mls/hr Q6HR IV 02/01/24 12:00 02/04/24 05:39 25 MLS/HR Furosemide 40 mg BIDD IV 02/02/24 10:30 02/04/24 05:39 40 MG Propofol 100 ml @ 4.599 mls/ hr [id number] IV 02/02/24 22:45 02/04/24 08:27 22.995 MLS/HR Amino Acids 0 ml @ 0 mls/hr PER PHARMACY IV 02/03/24 12:15 Diagnostic Test (Pha) 1 strip Q6HR 02/03/24 18:00 02/04/24 06:00 1 STRIP Insulin Human Regular FOLLOW SLIDING SCALE Q6HR SC 02/03/24 18:00 02/04/24 06:02 20 UNITS Dextrose 50 ml UD IV 02/03/24 12:15 Sodium Chloride 60 meq/Sodium Phosphate 40 meq/ Potassium Chloride 20 meq/ Magnesium Sulfate 4 meq/ Multivitamins 10 ml/Insulin Human Regular 12 units/ Amino Acids/ Dextrose/Purified Water 996.12 ml @ 42 mls/hr [id number] IV 02/03/24 22:00 02/04/24 21:59 02/03/24 21:32 42 MLS/HR Insulin Glargine 20 units BID@1000,2200 SC 02/04/24 10:00 02/04/24 11:01 20 UNITS objective General Appearance: alert, no distress HEENT: EOMI, PERRLA, normal external inspect of ears, no icterus, no nasal drainage Neck: no carotid bruit, no jugular venous distention (JVD), no lymphadenopathy Chest: normal thorax Respiratory: clear to auscultation Cardiovascular: regular rate and rhythm, no diastolic murmur, no jugular venous distention (JVD), no rub, no systolic murmur Abdominal: soft, no hepatomegaly, no mass, no splenomegaly, no tenderness Genitourinary: grossly normal external Musculoskeletal: no joint tenderness, no swelling Extremities: normal pulses, no calf tenderness, no clubbing, no cyanosis, no edema Skin: no bruising, no jaundice, no rash Neurological: alert, No focal deficit laboratory and microbiology Laboratory Tests 02/04/24 03:13 02/03/24 03:07 Test 02/04/24 03:13 Range/Units Serum Glucose 352 H 74-106 mg/dL Problem List 1. Asthma with acute exacerbation Pulmonary consult, monitoring 2. Acute hypoxic respiratory failure requiring intubation Pulmonary Consult 3. Schizophrenia Monitoring 4. Autism Medication, monitoring 5. Elevated Troponin Cardiology Consult, monitoring 6. Cannabis Use Education Assessment/Plan Subjective: Patient remains intubated and sedated. Objective: Patient was admitted for respiratory failure related to asthma exacerbation. Patient also had mildly elevated troponin levels most likely demand ischemia. Patient has a history of schizophrenia and autism. Patient is currently ventilated at 50% FiO2 and a PEEP of 10. Plan: Continue TPN for nutritional support. Monitor JORDAN's. manager workers compensation consult for LTACH eval. Dietary Evaluation Review Comments: Current Jevity 1.2 @60ml/hr TF is meeting pt's need for protein at 60% for energy at 117% Continue monitor nutrition progress of nutrition support to meet 75% of his needs. Advance to a cardiac diet, texture as tolerated when medically feasible. Expected Outcomes/Goals: gradual weight loss Plan discussed with: Patient, Other VIK COBOS NP Feb 04, 2024 11:04
--- NOTE | 2024-02-04 13:40 | DVHPN2 ---
Progress Note - Dictate Date Seen: Feb 04, 2024 Medical Necessity Reason Pt with a Central, PICC or Fol: Yes The following are medically ne: Reyes Catheter Reason for reyes catheter: Strict I&O Subjective Patient remains intubated. No new acute complaints noted at this time. FIO2 100% wbc trending down vital signs Vital Sign Date Time Temp Pulse Resp B/P (MAP) Pulse Ox O2 Delivery O2 Flow Rate FiO2 02/04/24 12:34 136/63 02/04/24 11:58 45 28 98 50 02/04/24 10:00 Mechanical Ventilator+ 02/04/24 08:02 98.4 98.4 Total Intake and Output 02/03/24 02/03/24 02/04/24 15:00 23:00 07:00 Intake Total 1341.3 ml 988.2 ml 1618.4 ml Output Total 1050 ml 2500 ml Balance 1341.3 ml -61.8 ml -881.6 ml medications Current Medications Medications Dose Ordered Sig/Reji Route Start Time Stop Time Status Last Admin Dose Admin Ondansetron HCl 4 mg Q4HP PRN IV 01/19/24 20:15 Pantoprazole Sodium 40 mg DAILY IV 01/20/24 10:00 02/04/24 10:28 40 MG Nitroglycerin 0.4 mg Q5MINP PRN SL 01/19/24 20:15 Midazolam HCl 50 ml @ 1 mls/hr Q24H IV 01/19/24 21:30 02/04/24 12:34 15 MLS/HR Aspirin 81 mg DAILY NG 01/20/24 10:00 02/04/24 10:29 81 MG Atorvastatin Calcium 40 mg HS PO 01/20/24 22:00 02/03/24 21:32 40 MG Latanoprost 1 drop QPM EACHEYE 01/20/24 18:00 02/01/24 16:39 1 DROP Patient Own Medication 400 mg MONTHLY IM 01/20/24 11:30 Lisinopril 20 mg DAILY PO 01/20/24 11:30 02/03/24 09:55 20 MG Nitroglycerin 250 ml @ 1.5 mls/hr Q24H IV 01/20/24 20:30 Albuterol 2.5 mg Q4HR NEB 01/20/24 22:00 02/04/24 09:41 2.5 MG Ipratropium [place] 0.5 mg Q4HR NEB 01/20/24 22:00 02/04/24 09:41 0.5 MG Enteral Nutritional Formula 1,000 ml 60ML/HR GT 01/22/24 14:00 02/01/24 20:06 1,000 ML Methylprednisolone Sodium Succinate 60 mg Q4HR IV 01/24/24 16:00 02/04/24 10:29 60 MG Rocuronium [place] 1000 mg/ Dextrose 250 ml @ 20.832 mls/ hr Q12H1M IV 01/24/24 17:30 02/04/24 08:56 10.416 MLS/HR Norepinephrine Bitartrate 250 ml @ 3.75 mls/hr Q24H IV 01/24/24 18:30 01/31/24 04:07 3.75 MLS/HR Vancomycin HCl 300 ml @ 200 mls/hr Q8H IV 01/28/24 02:00 Cancel Linezolid 300 ml @ 150 mls/hr Q12HR IV 01/28/24 22:00 02/04/24 10:32 150 MLS/HR Metoclopramide HCl 10 mg Q8HR IV 01/28/24 14:00 02/04/24 05:39 10 MG Docusate Sodium 100 mg BID GT 01/28/24 22:00 02/04/24 10:28 100 MG Fentanyl Citrate 250 ml @ 2.5 mls/hr Q24H IV 01/29/24 04:00 02/04/24 11:02 35 MLS/HR Hydralazine HCl 10 mg Q6HP PRN IV 01/30/24 13:15 02/03/24 00:32 10 MG Acetaminophen 650 mg Q4HP PRN PO 01/31/24 07:30 02/01/24 12:21 650 MG Quetiapine Fumarate 50 mg BID PO 01/31/24 10:00 02/04/24 10:32 50 MG Piperacillin Sod/ Tazobactam Sod 100 ml @ 25 mls/hr Q6HR IV 02/01/24 12:00 02/04/24 13:01 25 MLS/HR Furosemide 40 mg BIDD IV 02/02/24 10:30 02/04/24 05:39 40 MG Propofol 100 ml @ 4.599 mls/ hr [id number] IV 02/02/24 22:45 02/04/24 12:33 22.995 MLS/HR Amino Acids 0 ml @ 0 mls/hr PER PHARMACY IV 02/03/24 12:15 Diagnostic Test (Pha) 1 strip Q6HR 02/03/24 18:00 02/04/24 13:00 1 STRIP Insulin Human Regular FOLLOW SLIDING SCALE Q6HR SC 02/03/24 18:00 02/04/24 12:59 20 UNITS Dextrose 50 ml UD IV 02/03/24 12:15 Sodium Chloride 60 meq/Sodium Phosphate 40 meq/ Potassium Chloride 20 meq/ Magnesium Sulfate 4 meq/ Multivitamins 10 ml/Insulin Human Regular 12 units/ Amino Acids/ Dextrose/Purified Water 996.12 ml @ 42 mls/hr [id number] IV 02/03/24 22:00 02/04/24 21:59 02/03/24 21:32 42 MLS/HR Insulin Glargine 20 units BID@1000,2200 SC 02/04/24 10:00 02/04/24 11:01 20 UNITS Sodium Chloride 60 meq/Sodium Phosphate 20 meq/ Potassium Chloride 40 meq/ Calcium Gluconate 4.65 meq/ Magnesium Sulfate 4 meq/ Multivitamins 10 ml/Insulin Human Regular 24 units/ Amino Acids/ Dextrose/Purified Water 1,161.24 ml @ 48 mls/hr [id number] IV 02/04/24 22:00 02/05/24 21:59 objective Gen.: Patient lying in bed in medical ICU. Sedated, intubated on mechanical ventilator. Head: Normocephalic, atraumatic. Eyes: PERRLA. Ears: Normal external anatomy. Throat: Endotracheal tube and orogastric tube in place. Neck: Supple, trachea midline. Chest: Decreased air entry bilaterally. No wheezing. Bibasilar crackles. Cardiovascular: Positive S1, positive S2. Regular rate and rhythm. Abdomen: . Soft, nontender, nondistended. : Reyes in place. Normal external genitalia. Rectal: Deferred. Skin: Warm, dry. Intact. Extremities: No lower extremity edema. Neuro: Sedated. laboratory and microbiology Laboratory Tests 02/04/24 03:13 02/03/24 03:07 Test 02/04/24 03:13 Range/Units Serum Glucose 352 H 74-106 mg/dL Assessment/Plan Patient is a 28-year-old male presented to the hospital with: # thrombocytopenia Multifocal pneumonia: [place] ARDS Acute hypoxic respiratory failure On mechanical ventilator Coag negative staphylococcus bacteremia leucocytosis Acute exacerbation of asthma Elevated Troponin Schizophrenia Autism Cannabinoid Use Morbid obesity BMI 60.5 Pulmonary edema Recommendations: reviewed cultures since admission listed below Culture History: 01/21, Blood culture showed Growth Of Coagulase Negative Staphylococcus 01/30, Urine culture: No growth monitored 01/30, Sputum culture showed Klebsiella pneumoniae MRSA screen neg antibiotics history Vancomycin 01/22- Linezolid 01/27- now Zosyn: 01/31- now blood cx seems to look contaminations, + 1/2. discontinue Linezolid ( also platelets dropping) CXR shows multifocal infiltrate suggestive of ARDS, he is requiring high FIO2, possibly associated with pulm edema and bacterial pneumonia [place] is pansensitive, switched to cefepime. ( total duration of antibiotics 7-10 days including zosyn which was started on 01/31 pulmonary is on board, possible plan for bronchoscopy lasix prognosis is very poor. critical time 35 minutes spent. Thank you for consult and for giving an opportunity to take care of this patient. Dietary Evaluation Review Comments: Current Jevity 1.2 @60ml/hr TF is meeting pt's need for protein at 60% for energy at 117% Continue monitor nutrition progress of nutrition support to meet 75% of his needs. Advance to a cardiac diet, texture as tolerated when medically feasible. Expected Outcomes/Goals: gradual weight loss Plan discussed with: Other EBEN BARBOUR MD Feb 04, 2024 13:40
[2024-02-04] MEDS: CEFEPIME 2GM/50ML NS 50 ML IV SCH (14:30)
--- NOTE | 2024-02-04 18:22 | DVHPN2 ---
Progress Note - Dictate Date Seen: Feb 04, 2024 Medical Necessity Reason Pt with a Central, PICC or Fol: Yes The following are medically ne: Reyes Catheter Reason for reyes catheter: Strict I&O vital signs Vital Sign Date Time Temp Pulse Resp B/P (MAP) Pulse Ox O2 Delivery O2 Flow Rate FiO2 02/04/24 17:56 145/67 02/04/24 16:08 48 28 96 40 02/04/24 16:00 Mechanical Ventilator+ 02/04/24 12:02 97.9 97.9 Total Intake and Output 02/03/24 02/03/24 02/04/24 15:00 23:00 07:00 Intake Total 1341.3 ml 988.2 ml 1618.4 ml Output Total 1050 ml 2500 ml Balance 1341.3 ml -61.8 ml -881.6 ml medications Current Medications Medications Dose Ordered Sig/Reji Route Start Time Stop Time Status Last Admin Dose Admin Ondansetron HCl 4 mg Q4HP PRN IV 01/19/24 20:15 Pantoprazole Sodium 40 mg DAILY IV 01/20/24 10:00 02/04/24 10:28 40 MG Nitroglycerin 0.4 mg Q5MINP PRN SL 01/19/24 20:15 Midazolam HCl 50 ml @ 1 mls/hr Q24H IV 01/19/24 21:30 02/04/24 16:53 15 MLS/HR Aspirin 81 mg DAILY NG 01/20/24 10:00 02/04/24 10:29 81 MG Atorvastatin Calcium 40 mg HS PO 01/20/24 22:00 02/03/24 21:32 40 MG Latanoprost 1 drop QPM EACHEYE 01/20/24 18:00 02/01/24 16:39 1 DROP Patient Own Medication 400 mg MONTHLY IM 01/20/24 11:30 Lisinopril 20 mg DAILY PO 01/20/24 11:30 02/03/24 09:55 20 MG Nitroglycerin 250 ml @ 1.5 mls/hr Q24H IV 01/20/24 20:30 Albuterol 2.5 mg Q4HR NEB 01/20/24 22:00 02/04/24 14:38 2.5 MG Ipratropium [place] 0.5 mg Q4HR NEB 01/20/24 22:00 02/04/24 14:38 0.5 MG Enteral Nutritional Formula 1,000 ml 60ML/HR GT 01/22/24 14:00 02/01/24 20:06 1,000 ML Methylprednisolone Sodium Succinate 60 mg Q4HR IV 01/24/24 16:00 02/04/24 18:00 60 MG Rocuronium [place] 1000 mg/ Dextrose 250 ml @ 20.832 mls/ hr Q12H1M IV 01/24/24 17:30 02/04/24 08:56 10.416 MLS/HR Norepinephrine Bitartrate 250 ml @ 3.75 mls/hr Q24H IV 01/24/24 18:30 01/31/24 04:07 3.75 MLS/HR Vancomycin HCl 300 ml @ 200 mls/hr Q8H IV 01/28/24 02:00 Cancel Metoclopramide HCl 10 mg Q8HR IV 01/28/24 14:00 02/04/24 14:29 10 MG Docusate Sodium 100 mg BID GT 01/28/24 22:00 02/04/24 10:28 100 MG Fentanyl Citrate 250 ml @ 2.5 mls/hr Q24H IV 01/29/24 04:00 02/04/24 17:56 35 MLS/HR Hydralazine HCl 10 mg Q6HP PRN IV 01/30/24 13:15 02/03/24 00:32 10 MG Acetaminophen 650 mg Q4HP PRN PO 01/31/24 07:30 02/01/24 12:21 650 MG Quetiapine Fumarate 50 mg BID PO 01/31/24 10:00 02/04/24 10:32 50 MG Furosemide 40 mg BIDD IV 02/02/24 10:30 02/04/24 17:50 40 MG Propofol 100 ml @ 4.599 mls/ hr [id number] IV 02/02/24 22:45 02/04/24 16:54 22.995 MLS/HR Amino Acids 0 ml @ 0 mls/hr PER PHARMACY IV 02/03/24 12:15 Diagnostic Test (Pha) 1 strip Q6HR 02/03/24 18:00 02/04/24 17:50 1 STRIP Insulin Human Regular FOLLOW SLIDING SCALE Q6HR SC 02/03/24 18:00 02/04/24 17:55 20 UNITS Dextrose 50 ml UD IV 02/03/24 12:15 Sodium Chloride 60 meq/Sodium Phosphate 40 meq/ Potassium Chloride 20 meq/ Magnesium Sulfate 4 meq/ Multivitamins 10 ml/Insulin Human Regular 12 units/ Amino Acids/ Dextrose/Purified Water 996.12 ml @ 42 mls/hr [id number] IV 02/03/24 22:00 02/04/24 21:59 02/03/24 21:32 42 MLS/HR Insulin Glargine 20 units BID@1000,2200 SC 02/04/24 10:00 02/04/24 11:01 20 UNITS Sodium Chloride 60 meq/Sodium Phosphate 20 meq/ Potassium Chloride 40 meq/ Calcium Gluconate 4.65 meq/ Magnesium Sulfate 4 meq/ Multivitamins 10 ml/Insulin Human Regular 24 units/ Amino Acids/ Dextrose/Purified Water 1,161.24 ml @ 48 mls/hr [id number] IV 02/04/24 22:00 02/05/24 21:59 Cefepime HCl 50 ml @ 12.5 mls/hr Q8HR IV 02/04/24 14:00 02/04/24 14:30 12.5 MLS/HR laboratory and microbiology Laboratory Tests 02/04/24 03:13 02/03/24 03:07 Test 02/04/24 03:13 Range/Units Serum Glucose 352 H 74-106 mg/dL Assessment/Plan Patient is 28 year old morbidly obese male who presented to ED with shortness of breath. He has been intubated for respiratory failure and in on vent. support. Information was obtained by reviewing the chart and communicating with staff. Cardiology is involved for cardiac aspects of care. There is no report of chest pain prior to presentation. 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 Intubated and on vent support. Morbidly obese. Does have right sided subclavian access. No JVD. Mucosa is pink and wet. No goiter. Scattered rhonchi is heard. Cardiac: RR, no thrill, no gallop. Abdomen is soft, obese and distended. BS is +. Ext reveal 2+ edema bilaterally. DP is 2+ bilateral PMH reportedly includes Morbid obesity, Asthma (with previous intubations), Autism, Schizophrenia and ANNETTE. Smokes Marijuana and drinks alcohol WBC: 11.6 to 11.2 to 14.2 to 12.2 to 13.3 to 16.4 to 17.5 to 15.3 to 13.8 to 15.7 to 13.8 - 22.2 to 22.3 to 16.3 D-dimer: 0.43 (wnl) Creat: 0.73 - 0.70 - 0.67 - 0.76 - 0.71 - 0.70 - 0.69 - 0.59 - 0.60 - 0.52 - 0.50 - 0.47 - 0.47 - 0.62 - 0.42 - 0.39 - 0.51 - 0.52 K: 4.1 - 4.3 - 4.1 - 4.2 - 4.0 - 4.1 - 4.1 - 3.9 - 4.0 - 3.8 - 4.3 - 4.7 - 4.4 - 4.4 - 4.3 - 4.3 BNP: 561.97 - 173.31 Trop (high sensitive): 61 - 62 - 131 - 132 - 91 - 82 TSH: 0.48 Urine toxicology was positive for Cannabinoids and Benzodiazpin Chest xry revealed: FINDINGS: Lines and Tubes: None Lungs: Obscuration of the left hemidiaphragm Diffuse interstitial prominence. No pneumothorax. Cardiomediastinal contours: Moderate cardiomegaly Bones: No acute osseous abnormality. IMPRESSION: Moderate cardiomegaly with findings suggestive of congestive heart failure. Possible left-sided pleural effusion. Repeat chest xry revealed: Endotracheal tube projects terminating 1.8 cm superior to the zbigniew. Enteric tube is projecting below the GE junction without visualization of the port or tip. Low lung volumes with bronchovascular crowding. Possible small left-sided pleural effusion and/or atelectasis. No pneumothorax. Repeat chest xry revealed: Cardiomediastinal silhouette is enlarged. There is increased pulmonary vascular congestion, similar prior examination. Obscuration of the left hemidiaphragm may be on the basis of technique versus small pleural effusion. No discrete pneumothorax. Endotracheal tube and enteric tube are redemonstrated. Left IJ catheter tip is likely at the region of the brachiocephalic vein. Repeat chest xry revealed: FINDINGS: Cardiomediastinal silhouette is enlarged. There is increased pulmonary vascular congestion, similar prior examination. Obscuration of the left hemidiaphragm may be on the basis of technique versus small pleural effusion. No discrete pneumothorax. Endotracheal tube and enteric tube are redemonstrated. Left IJ catheter tip is likely at the region of the brachiocephalic vein. IMPRESSION: NO INTERVAL CHANGE. Repeat chest xry revealed: IMPRESSION: Improving pulmonary edema compared to prior exam. Repeat chest xry revealed: IMPRESSION: stable pulmonary edema compared to prior exam. Repeat chest xry revealed: IMPRESSION: Lines and tubes in satisfactory position. No significant interval change. Repeat chest xry revealed: IMPRESSION: Lines and tubes in satisfactory position. No significant interval change. Repeat chest xry revealed: IMPRESSION: Lines and tubes in satisfactory position. No significant interval change. Repeat chest xry: IMPRESSION: 1. Stable position of the support lines and tubes. 2. No significant change in diffuse bilateral airspace opacities. Repeat chest xry revealed: IMPRESSION: 1. Endotracheal tube terminates 6.4 symbol the zbigniew. 2. Bilateral airspace disease unchanged. Repeat chest xry revealed: IMPRESSION: 1. Endotracheal tube 4.1 cm above the zbigniew. 2. OG tube not visualized AND may BE IN THE RIGHT MAINSTEM BRONCHUS RECOMMEND REMOVAL AND REPOSITIONING WITH REPEAT CHEST X-RAY. Repeat chest xry revealed: FINDINGS: Endotracheal tube in place 4.4 cm above the zbigniew. Left internal jugular catheter in place in the superior vena cava. Cardiomegaly is noted with pulmonary vascular congestion findings may represent congestive failure other possibility such as pneumonia are in the differential. IMPRESSION: 1. Cardiomegaly with findings of pulmonary vascular congestion. Findings may represent congestive failure or pneumonia. Repeat chest xry revealed: Lines and Tubes: The endotracheal tube terminates 3.1 cm above the zbigniew. Left central venous catheter terminates in the superior vena cava. Enteric tube is visualized to the mid chest but not visualized below the left hemidiaphragm. Lungs: Bilateral airspace disease. Pleura: No effusion. No pneumothorax. Cardiomediastinal contours: Stable cardiomegaly. Bones: No acute osseous abnormality. IMPRESSION: 1. Enteric tube not visualized below the left hemidiaphragm. 2. Bilateral airspace disease similar to prior exam. Repeat chest xry revealed: Limited evaluation given patient positioning. The heart appears markedly enlarged. There are low lung volumes with moderate alveolar airspace opacities suggesting pulmonary edema. No discrete pneumothorax. Endotracheal tube appear stable. Enteric tube is not well visualized. Repeat chest xry revealed: IMPRESSION: 1. Stable appearance of the support lines and tubes. 2. Pulmonary opacities, unchanged. Repeat chest xry revealed: Evaluation limited by patient body habitus. Lines and Tubes: The endotracheal tube terminates 5.7 cm above the zbigniew. Left central venous catheter is unchanged in position. Enteric tube courses below the left hemidiaphragm and outside the field of view. Lungs: Bilateral airspace disease similar to prior study. Pleura: Possible bilateral pleural effusions. No pneumothorax. Cardiomediastinal contours: Stable. Bones: No acute osseous abnormality. IMPRESSION: 1. No significant interval change. KUB revealed: Impression: 1. Nonobstructive bowel gas pattern. 2. Enteric tube overlying the plane of the stomach. 3. No visualized renal calculi. Venous duplex of lower ext revealed: Impression: 1. No right or left femoropopliteal venous thrombosis. 2. Left common femoral vein and proximal superficial femoral vein are not visible and therefore thrombus can not be excluded in those areas. EKG revealed: Sinus tachycardia with non-specific STT changes Tele reveals Sinus rhythm Echocardiogram revealed: Technically limited study secondary to poor acoustic windows. Left ventricle: Left ventricle was normal-sized with normal systolic function. LVEF was 60-65%. There was no gross wall motion abnormality observed. Right ventricle was not well visualized but it was dilated. Left atrium was normal-sized. Right atrium was not well visualized. Aortic valve was trileaflet and normal. There was no aortic insufficiency/stenosis. There was trivial mitral and tricuspid regurgitation. There was mild pulmonary valve insufficiency. As there was no good tricuspid regurgitation jet, right ventricular systolic pressure could not be estimated. There was no pericardial effusion. Patient is 28 year old male with history of morbid obesity who presented with respiratory failure. Does have history of Asthma and reportedly has been intubated for it before. Trop has been mildly elevated. ACS is less likely and increase in troponin most likely represents demand physiology. Still, component of type 1 physiology cannot be completely ruled out. Echo revealed dilated RV. As there was no good TR jet, RVSP could not be estimated. Pulmonary Hypertension cannot be ruled out. Pulmonary on board. On sedation Acute respiratory failure Asthma Asthma exacerbation Morbid obesity Abnormal trop Questionable heart failure, acute Cardiac suggestion for management: Manage in ICU IV diuresis Follow up electrolytes and kidney function test and correct abnormalities. Keep potassium above 4 and magnesium above 2 Lovenox ASA Follow up vital signs and correct hyper/hypotension. If needed add pressure support to keep MAP above 65 mmHg Pulmonary follow up Further evaluation and management depends on the above and clinical course A total of 75 minutes was spent reviewing the patient record, examining the patient, making a diagnostic and therapeutic plan, discussing this plan with medical personnel, following up on diagnostic studies and following the patient for clinical stability excluding any and all procedures. At least 50% of this time was spent in direct, [id number] contact. Thank you for allowing me to participate in this patient's care. Further recommendations will depend on patient's clinical course. Please do not hesitate to contact me if you have any questions or concerns. This medical document was created using electronic medical record system with [employer] computerized dictation system. Although this document has been carefully reviewed, there may still be some phonetic and typographical errors. These areas are purely typographical due to the imperfection of the software programs, and do not reflect any compromise in the patient's medical care. Dietary Evaluation Review Comments: Current Jevity 1.2 @60ml/hr TF is meeting pt's need for protein at 60% for energy at 117% Continue monitor nutrition progress of nutrition support to meet 75% of his needs. Advance to a cardiac diet, texture as tolerated when medically feasible. Expected Outcomes/Goals: gradual weight loss Plan discussed with: Other (nurse) PARRIS MCKINNON MD Feb 04, 2024 18:22
--- NOTE | 2024-02-04 21:05 | DVHPN2 ---
Progress Note - Dictate Date Seen: Feb 04, 2024 Medical Necessity Reason Pt with a Central, PICC or Fol: Yes The following are medically ne: Reyes Catheter Reason for reyes catheter: Strict I&O Subjective Patient seen and examined at bedside. Sedated, intubated on mechanical ventilator. Overnight events reviewed. vital signs Vital Sign Date Time Temp Pulse Resp B/P (MAP) Pulse Ox O2 Delivery O2 Flow Rate FiO2 02/04/24 20:50 136/64 02/04/24 20:17 48 28 95 40 02/04/24 18:00 Mechanical Ventilator+ 02/04/24 12:02 97.9 97.9 Total Intake and Output 02/03/24 02/03/24 02/04/24 15:00 23:00 07:00 Intake Total 1341.3 ml 988.2 ml 1618.4 ml Output Total 1050 ml 2500 ml Balance 1341.3 ml -61.8 ml -881.6 ml medications Current Medications Medications Dose Ordered Sig/Reji Route Start Time Stop Time Status Last Admin Dose Admin Ondansetron HCl 4 mg Q4HP PRN IV 01/19/24 20:15 Pantoprazole Sodium 40 mg DAILY IV 01/20/24 10:00 02/04/24 10:28 40 MG Nitroglycerin 0.4 mg Q5MINP PRN SL 01/19/24 20:15 Midazolam HCl 50 ml @ 1 mls/hr Q24H IV 01/19/24 21:30 02/04/24 20:11 15 MLS/HR Aspirin 81 mg DAILY NG 01/20/24 10:00 02/04/24 10:29 81 MG Atorvastatin Calcium 40 mg HS PO 01/20/24 22:00 02/03/24 21:32 40 MG Latanoprost 1 drop QPM EACHEYE 01/20/24 18:00 02/01/24 16:39 1 DROP Patient Own Medication 400 mg MONTHLY IM 01/20/24 11:30 Lisinopril 20 mg DAILY PO 01/20/24 11:30 02/03/24 09:55 20 MG Nitroglycerin 250 ml @ 1.5 mls/hr Q24H IV 01/20/24 20:30 Albuterol 2.5 mg Q4HR NEB 01/20/24 22:00 02/04/24 18:24 2.5 MG Ipratropium [place] 0.5 mg Q4HR NEB 01/20/24 22:00 02/04/24 18:24 0.5 MG Enteral Nutritional Formula 1,000 ml 60ML/HR GT 01/22/24 14:00 02/01/24 20:06 1,000 ML Methylprednisolone Sodium Succinate 60 mg Q4HR IV 01/24/24 16:00 02/04/24 18:00 60 MG Rocuronium [place] 1000 mg/ Dextrose 250 ml @ 20.832 mls/ hr Q12H1M IV 01/24/24 17:30 02/04/24 08:56 10.416 MLS/HR Norepinephrine Bitartrate 250 ml @ 3.75 mls/hr Q24H IV 01/24/24 18:30 01/31/24 04:07 3.75 MLS/HR Vancomycin HCl 300 ml @ 200 mls/hr Q8H IV 01/28/24 02:00 Cancel Metoclopramide HCl 10 mg Q8HR IV 01/28/24 14:00 02/04/24 14:29 10 MG Docusate Sodium 100 mg BID GT 01/28/24 22:00 02/04/24 10:28 100 MG Fentanyl Citrate 250 ml @ 2.5 mls/hr Q24H IV 01/29/24 04:00 02/04/24 17:56 35 MLS/HR Hydralazine HCl 10 mg Q6HP PRN IV 01/30/24 13:15 02/03/24 00:32 10 MG Acetaminophen 650 mg Q4HP PRN PO 01/31/24 07:30 02/01/24 12:21 650 MG Quetiapine Fumarate 50 mg BID PO 01/31/24 10:00 02/04/24 10:32 50 MG Furosemide 40 mg BIDD IV 02/02/24 10:30 02/04/24 17:50 40 MG Propofol 100 ml @ 4.599 mls/ hr [id number] IV 02/02/24 22:45 02/04/24 20:50 18.396 MLS/HR Amino Acids 0 ml @ 0 mls/hr PER PHARMACY IV 02/03/24 12:15 Diagnostic Test (Pha) 1 strip Q6HR 02/03/24 18:00 02/04/24 17:50 1 STRIP Insulin Human Regular FOLLOW SLIDING SCALE Q6HR SC 02/03/24 18:00 02/04/24 17:55 20 UNITS Dextrose 50 ml UD IV 02/03/24 12:15 Sodium Chloride 60 meq/Sodium Phosphate 40 meq/ Potassium Chloride 20 meq/ Magnesium Sulfate 4 meq/ Multivitamins 10 ml/Insulin Human Regular 12 units/ Amino Acids/ Dextrose/Purified Water 996.12 ml @ 42 mls/hr [id number] IV 02/03/24 22:00 02/04/24 21:59 02/03/24 21:32 42 MLS/HR Insulin Glargine 20 units BID@1000,2200 SC 02/04/24 10:00 02/04/24 11:01 20 UNITS Sodium Chloride 60 meq/Sodium Phosphate 20 meq/ Potassium Chloride 40 meq/ Calcium Gluconate 4.65 meq/ Magnesium Sulfate 4 meq/ Multivitamins 10 ml/Insulin Human Regular 24 units/ Amino Acids/ Dextrose/Purified Water 1,161.24 ml @ 48 mls/hr [id number] IV 02/04/24 22:00 02/05/24 21:59 Cefepime HCl 50 ml @ 12.5 mls/hr Q8HR IV 02/04/24 14:00 02/04/24 14:30 12.5 MLS/HR objective Gen.: Patient lying in bed in medical ICU. Sedated, intubated on mechanical ventilator. Head: Normocephalic, atraumatic. Eyes: PERRLA. Ears: Normal external anatomy. Throat: Endotracheal tube and orogastric tube in place. Neck: Supple, trachea midline. Chest: Transmitted breath sounds bilaterally. Decreased air entry bilaterally. No wheezing. Bibasilar crackles. Cardiovascular: Positive S1, positive S2. Regular rate and rhythm. Abdomen: Positive bowel sounds in all 4 quadrants. Soft, nontender, nondistended. : Reyes in place. Normal external genitalia. Rectal: Deferred. Skin: Warm, dry. Intact. Extremities: 2+ radial pulses bilaterally. No lower extremity edema. Neuro: Sedated. laboratory and microbiology Laboratory Tests 02/04/24 03:13 02/03/24 03:07 Test 02/04/24 03:13 Range/Units Serum Glucose 352 H 74-106 mg/dL Assessment/Plan Impression: Acute hypoxic respiratory failure On mechanical ventilator Acute exacerbation of asthma Elevated Troponin Schizophrenia Autism Cannabinoid Use Morbid obesity BMI 60.5 Pulmonary edema Events: Remains on vent support On AC mode with RR 28, VT 500, PEEP 12, FiO2 40% Improved FIO2 requirements. Will begin to taper PEEP in am. Sedated on Propofol, Versed, Fentanyl Remains on Rocuronium drip for paralytic. Leukocytosis: WBC trending down, 24.0 --> 16.3 K. Increased ET tube secretions - will consider bronchoscopy when FiO2 requirements improve. Patient desaturates at the moment w/ mild suctioning. Taper down FiO2 as tolerated Recommend trach/PEG to liberate from vent. ABG reviewed. Compensated. CXR demonstrates devices in place, bilateral airspace disease similar to prior study. Possible bilateral pleural effusions. Seroquel 50 mg q.12 hours. Continue bronchodilators IV steroids Continue antibiotics Tube feeds for nutritional support Diurese to euvolemia - Lasix BID Monitor renal function Monitor electrolytes. Supplement as necessary. Monitor ins and outs. Labs and imaging reviewed. Rest of plan as noted below. Plan: s/p intubation on mechanical ventilator. On AC mode Titrate FIO2 to keep O2 saturation above 90%. VAP bundle. Daily ABG and CXR while intubated Sedate for ventilator synchrony Pt does not tolerate turns. Derecruitment. Turn carefully. Elevated Troponin - Cardiology recs appreciated. Continue bronchodilators Antibiotics. F/u cultures. Pressors if necessary for hemodynamic support Titrate to keep mean arterial pressure greater than 65 mmHg. Currently off pressors, hemodynamically stable. Diurese to euvolemia Monitor renal function Monitor electrolytes. Supplement as necessary. Monitor ins and outs. Diet and lifestyle modifications for weight reduction Morbid obesity - complicates all care GI prophylaxis. DVT prophylaxis. Prognosis: Poor given patient's multiple co-morbidities. Condition: Critical Rest of plan per hospitalist and other consultants. A total of 35 minutes of critical care time was spent reviewing the patient record, examining the patient, making a diagnostic and therapeutic plan, discussing this plan with the medical personnel, following up on diagnostic studies and following the patient for clinical stability excluding any and all procedures. At least 50% of this time was spent in direct, [id number] contact. Thank you Irma Velasquez NP, for allowing me to participate in this patient's care. Further recommendations will depend on the patient's clinical course. Please do not hesitate to contact me if you have any questions or concerns. This medical document was created using an electronic medical record system with [employer] dictation system. Although these documentations are being carefully reviewed, there may still be some phonetic and typographical changes. The errors are purely typographical, due to imperfection on the software program, and do not reflect any compromise in the patient's medical care. Dietary Evaluation Review Comments: Current Jevity 1.2 @60ml/hr TF is meeting pt's need for protein at 60% for energy at 117% Continue monitor nutrition progress of nutrition support to meet 75% of his needs. Advance to a cardiac diet, texture as tolerated when medically feasible. Expected Outcomes/Goals: gradual weight loss Plan discussed with: Other (RN Alma, RT, MD) Critical Care Time(min): 35 VERÓNICA MERCER MD Feb 04, 2024 21:05
[2024-02-04] MEDS: TPN PER PHARMACY IV NR (21:40)
[2024-02-05] VITALS (119 sets, daily range): BP systolic 92–175; BP diastolic 37–98; PULSE 41–121; RESP 11–33; TEMP 97.9–99.3; O2SAT 88–100
[2024-02-05 04:38] LABS: Albumin 3.2 g/dL (3.2-4.8); Alkaline Phosphatase 103 U/L (46-116); Anion Gap 3 (5-15); Aspartate Aminotransferase 23 U/L (13-40); Calcium 8.8 mg/dL (8.7-10.4); Chloride 100 mmol/L (98-107); Magnesium 2.1 mg/dL (1.6-2.6); Phosphorus 2.8 mg/dL (2.4-5.1); Potassium 4.1 mmol/L (3.5-5.1); Sodium 137 mmol/L (136-145)
[2024-02-05 04:39] LABS: Alanine Aminotransferase 67 U/L (7-40); Bilirubin, Total 1.6 mg/dL (0.2-1.0); Carbon Dioxide 34 mmol/L (20-31); Glucose 357 mg/dL (74-106); Total Protein 5.5 g/dL (5.7-8.2)
[2024-02-05 04:59] LABS: BUN/Creatinine Ratio 41.3 (10.0-20.0); Blood Urea Nitrogen 19 mg/dL (9-23)
--- NOTE | 2024-02-05 06:00 | DVH ---
CHEST RADIOGRAPH Indication: INTUBATED Technique: Single frontal view of the chest was obtained COMPARISON: XY CHEST PORTABLE on DOS: 02/03/24, XY CHEST PORTABLE on DOS: 02/02/24, XY CHEST PORTABLE on DOS: 02/01/24, XY CHEST PORTABLE on DOS: 01/31/24, XY CHEST PORTABLE on DOS: 01/30/24 FINDINGS: Lines and Tubes: None Lungs: Right lower lobe pneumonia. Pleura: No effusion. No pneumothorax. Cardiomediastinal contours: Unremarkable Bones: Unremarkable IMPRESSION: Right lower lobe pneumonia.
[2024-02-05 07:03] LABS: Base Excess 4.5 mmol/L (-2.0-3.0)
--- NOTE | 2024-02-05 08:10 | DVHPN2 ---
Progress Note - Dictate Date Seen: Feb 05, 2024 Medical Necessity Reason Pt with a Central, PICC or Fol: Yes The following are medically ne: Reyes Catheter Reason for reyes catheter: Strict I&O vital signs Vital Sign Date Time Temp Pulse Resp B/P (MAP) Pulse Ox O2 Delivery O2 Flow Rate FiO2 02/05/24 07:31 140/70 02/05/24 07:02 80 28 95 02/05/24 06:24 40 02/05/24 06:00 Mechanical Ventilator+ 02/05/24 04:02 98.8 98.8 Total Intake and Output 02/04/24 02/04/24 02/05/24 15:00 23:00 07:00 Intake Total 1000.756 ml 960.847 ml 985.184 ml Output Total 3770 ml 2800 ml Balance 1000.756 ml -2809.153 ml -1814.816 ml medications Current Medications Medications Dose Ordered Sig/Reji Route Start Time Stop Time Status Last Admin Dose Admin Ondansetron HCl 4 mg Q4HP PRN IV 01/19/24 20:15 Pantoprazole Sodium 40 mg DAILY IV 01/20/24 10:00 02/04/24 10:28 40 MG Nitroglycerin 0.4 mg Q5MINP PRN SL 01/19/24 20:15 Midazolam HCl 50 ml @ 1 mls/hr Q24H IV 01/19/24 21:30 02/05/24 05:39 15 MLS/HR Aspirin 81 mg DAILY NG 01/20/24 10:00 02/04/24 10:29 81 MG Atorvastatin Calcium 40 mg HS PO 01/20/24 22:00 02/04/24 21:31 40 MG Latanoprost 1 drop QPM EACHEYE 01/20/24 18:00 02/01/24 16:39 1 DROP Patient Own Medication 400 mg MONTHLY IM 01/20/24 11:30 Lisinopril 20 mg DAILY PO 01/20/24 11:30 02/03/24 09:55 20 MG Nitroglycerin 250 ml @ 1.5 mls/hr Q24H IV 01/20/24 20:30 Albuterol 2.5 mg Q4HR NEB 01/20/24 22:00 02/05/24 06:24 2.5 MG Ipratropium [place] 0.5 mg Q4HR NEB 01/20/24 22:00 02/05/24 06:24 0.5 MG Enteral Nutritional Formula 1,000 ml 60ML/HR GT 01/22/24 14:00 02/01/24 20:06 1,000 ML Methylprednisolone Sodium Succinate 60 mg Q4HR IV 01/24/24 16:00 02/05/24 05:33 60 MG Rocuronium [place] 1000 mg/ Dextrose 250 ml @ 20.832 mls/ hr Q12H1M IV 01/24/24 17:30 02/05/24 04:38 10.416 MLS/HR Norepinephrine Bitartrate 250 ml @ 3.75 mls/hr Q24H IV 01/24/24 18:30 01/31/24 04:07 3.75 MLS/HR Vancomycin HCl 300 ml @ 200 mls/hr Q8H IV 01/28/24 02:00 Cancel Metoclopramide HCl 10 mg Q8HR IV 01/28/24 14:00 02/05/24 05:32 10 MG Docusate Sodium 100 mg BID GT 01/28/24 22:00 02/04/24 21:32 100 MG Fentanyl Citrate 250 ml @ 2.5 mls/hr Q24H IV 01/29/24 04:00 02/05/24 07:31 35 MLS/HR Hydralazine HCl 10 mg Q6HP PRN IV 01/30/24 13:15 02/05/24 02:46 10 MG Acetaminophen 650 mg Q4HP PRN PO 01/31/24 07:30 02/01/24 12:21 650 MG Quetiapine Fumarate 50 mg BID PO 01/31/24 10:00 02/04/24 21:31 50 MG Furosemide 40 mg BIDD IV 02/02/24 10:30 02/05/24 05:32 40 MG Propofol 100 ml @ 4.599 mls/ hr [id number] IV 02/02/24 22:45 02/05/24 04:36 18.396 MLS/HR Amino Acids 0 ml @ 0 mls/hr PER PHARMACY IV 02/03/24 12:15 Diagnostic Test (Pha) 1 strip Q6HR 02/03/24 18:00 02/05/24 05:33 1 STRIP Insulin Human Regular FOLLOW SLIDING SCALE Q6HR SC 02/03/24 18:00 12/26/24 06:26 16 UNITS Dextrose 50 ml UD IV 02/03/24 12:15 Insulin Glargine 20 units BID@1000,2200 SC 02/04/24 10:00 02/04/24 21:41 20 UNITS Sodium Chloride 60 meq/Sodium Phosphate 20 meq/ Potassium Chloride 40 meq/ Calcium Gluconate 4.65 meq/ Magnesium Sulfate 4 meq/ Multivitamins 10 ml/Insulin Human Regular 24 units/ Amino Acids/ Dextrose/Purified Water 1,161.24 ml @ 48 mls/hr [id number] IV 02/04/24 22:00 02/05/24 21:59 02/04/24 21:40 48 MLS/HR Cefepime HCl 50 ml @ 12.5 mls/hr Q8HR IV 02/04/24 14:00 02/05/24 05:33 12.5 MLS/HR laboratory and microbiology Laboratory Tests 02/05/24 03:27 02/03/24 03:07 Test 02/05/24 03:27 Range/Units Serum Glucose 357 H 74-106 mg/dL Assessment/Plan Patient is 28 year old morbidly obese male who presented to ED with shortness of breath. He has been intubated for respiratory failure and in on vent. support. Information was obtained by reviewing the chart and communicating with staff. Cardiology is involved for cardiac aspects of care. There is no report of chest pain prior to presentation. 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 Intubated and on vent support. Morbidly obese. Does have right sided subclavian access. No JVD. Mucosa is pink and wet. No goiter. Scattered rhonchi is heard. Cardiac: RR, no thrill, no gallop. Abdomen is soft, obese and distended. BS is +. Ext reveal 2+ edema bilaterally. DP is 2+ bilateral PMH reportedly includes Morbid obesity, Asthma (with previous intubations), Autism, Schizophrenia and ANNETTE. Smokes Marijuana and drinks alcohol WBC: 11.6 to 11.2 to 14.2 to 12.2 to 13.3 to 16.4 to 17.5 to 15.3 to 13.8 to 15.7 to 13.8 - 22.2 to 22.3 to 16.3 D-dimer: 0.43 (wnl) Creat: 0.73 - 0.70 - 0.67 - 0.76 - 0.71 - 0.70 - 0.69 - 0.59 - 0.60 - 0.52 - 0.50 - 0.47 - 0.47 - 0.62 - 0.42 - 0.39 - 0.51 - 0.52 - 0.46 K: 4.1 - 4.3 - 4.1 - 4.2 - 4.0 - 4.1 - 4.1 - 3.9 - 4.0 - 3.8 - 4.3 - 4.7 - 4.4 - 4.4 - 4.3 - 4.3 - 4.1 BNP: 561.97 - 173.31 Trop (high sensitive): 61 - 62 - 131 - 132 - 91 - 82 TSH: 0.48 Urine toxicology was positive for Cannabinoids and Benzodiazpin Chest xry revealed: FINDINGS: Lines and Tubes: None Lungs: Obscuration of the left hemidiaphragm Diffuse interstitial prominence. No pneumothorax. Cardiomediastinal contours: Moderate cardiomegaly Bones: No acute osseous abnormality. IMPRESSION: Moderate cardiomegaly with findings suggestive of congestive heart failure. Possible left-sided pleural effusion. Repeat chest xry revealed: Endotracheal tube projects terminating 1.8 cm superior to the zbigniew. Enteric tube is projecting below the GE junction without visualization of the port or tip. Low lung volumes with bronchovascular crowding. Possible small left-sided pleural effusion and/or atelectasis. No pneumothorax. Repeat chest xry revealed: Cardiomediastinal silhouette is enlarged. There is increased pulmonary vascular congestion, similar prior examination. Obscuration of the left hemidiaphragm may be on the basis of technique versus small pleural effusion. No discrete pneumothorax. Endotracheal tube and enteric tube are redemonstrated. Left IJ catheter tip is likely at the region of the brachiocephalic vein. Repeat chest xry revealed: FINDINGS: Cardiomediastinal silhouette is enlarged. There is increased pulmonary vascular congestion, similar prior examination. Obscuration of the left hemidiaphragm may be on the basis of technique versus small pleural effusion. No discrete pneumothorax. Endotracheal tube and enteric tube are redemonstrated. Left IJ catheter tip is likely at the region of the brachiocephalic vein. IMPRESSION: NO INTERVAL CHANGE. Repeat chest xry revealed: IMPRESSION: Improving pulmonary edema compared to prior exam. Repeat chest xry revealed: IMPRESSION: stable pulmonary edema compared to prior exam. Repeat chest xry revealed: IMPRESSION: Lines and tubes in satisfactory position. No significant interval change. Repeat chest xry revealed: IMPRESSION: Lines and tubes in satisfactory position. No significant interval change. Repeat chest xry revealed: IMPRESSION: Lines and tubes in satisfactory position. No significant interval change. Repeat chest xry: IMPRESSION: 1. Stable position of the support lines and tubes. 2. No significant change in diffuse bilateral airspace opacities. Repeat chest xry revealed: IMPRESSION: 1. Endotracheal tube terminates 6.4 symbol the zbigniew. 2. Bilateral airspace disease unchanged. Repeat chest xry revealed: IMPRESSION: 1. Endotracheal tube 4.1 cm above the zbigniew. 2. OG tube not visualized AND may BE IN THE RIGHT MAINSTEM BRONCHUS RECOMMEND REMOVAL AND REPOSITIONING WITH REPEAT CHEST X-RAY. Repeat chest xry revealed: FINDINGS: Endotracheal tube in place 4.4 cm above the zbigniew. Left internal jugular catheter in place in the superior vena cava. Cardiomegaly is noted with pulmonary vascular congestion findings may represent congestive failure other possibility such as pneumonia are in the differential. IMPRESSION: 1. Cardiomegaly with findings of pulmonary vascular congestion. Findings may represent congestive failure or pneumonia. Repeat chest xry revealed: Lines and Tubes: The endotracheal tube terminates 3.1 cm above the zbigniew. Left central venous catheter terminates in the superior vena cava. Enteric tube is visualized to the mid chest but not visualized below the left hemidiaphragm. Lungs: Bilateral airspace disease. Pleura: No effusion. No pneumothorax. Cardiomediastinal contours: Stable cardiomegaly. Bones: No acute osseous abnormality. IMPRESSION: 1. Enteric tube not visualized below the left hemidiaphragm. 2. Bilateral airspace disease similar to prior exam. Repeat chest xry revealed: Limited evaluation given patient positioning. The heart appears markedly enlarged. There are low lung volumes with moderate alveolar airspace opacities suggesting pulmonary edema. No discrete pneumothorax. Endotracheal tube appear stable. Enteric tube is not well visualized. Repeat chest xry revealed: IMPRESSION: 1. Stable appearance of the support lines and tubes. 2. Pulmonary opacities, unchanged. Repeat chest xry revealed: Evaluation limited by patient body habitus. Lines and Tubes: The endotracheal tube terminates 5.7 cm above the zbigniew. Left central venous catheter is unchanged in position. Enteric tube courses below the left hemidiaphragm and outside the field of view. Lungs: Bilateral airspace disease similar to prior study. Pleura: Possible bilateral pleural effusions. No pneumothorax. Cardiomediastinal contours: Stable. Bones: No acute osseous abnormality. IMPRESSION: 1. No significant interval change. Repeat chest xry revealed: IMPRESSION: Right lower lobe pneumonia. KUB revealed: Impression: 1. Nonobstructive bowel gas pattern. 2. Enteric tube overlying the plane of the stomach. 3. No visualized renal calculi. Venous duplex of lower ext revealed: Impression: 1. No right or left femoropopliteal venous thrombosis. 2. Left common femoral vein and proximal superficial femoral vein are not visible and therefore thrombus can not be excluded in those areas. EKG revealed: Sinus tachycardia with non-specific STT changes Tele reveals Sinus rhythm Echocardiogram revealed: Technically limited study secondary to poor acoustic windows. Left ventricle: Left ventricle was normal-sized with normal systolic function. LVEF was 60-65%. There was no gross wall motion abnormality observed. Right ventricle was not well visualized but it was dilated. Left atrium was normal-sized. Right atrium was not well visualized. Aortic valve was trileaflet and normal. There was no aortic insufficiency/stenosis. There was trivial mitral and tricuspid regurgitation. There was mild pulmonary valve insufficiency. As there was no good tricuspid regurgitation jet, right ventricular systolic pressure could not be estimated. There was no pericardial effusion. Patient is 28 year old male with history of morbid obesity who presented with respiratory failure. Does have history of Asthma and reportedly has been intubated for it before. Trop has been mildly elevated. ACS is less likely and increase in troponin most likely represents demand physiology. Still, component of type 1 physiology cannot be completely ruled out. Echo revealed dilated RV. As there was no good TR jet, RVSP could not be estimated. Pulmonary Hypertension cannot be ruled out. Pulmonary on board. On sedation Acute respiratory failure Asthma Asthma exacerbation Morbid obesity Abnormal trop Questionable heart failure, acute Pneumonia Cardiac suggestion for management: Manage in ICU IV diuresis Follow up electrolytes and kidney function test and correct abnormalities. Keep potassium above 4 and magnesium above 2 Lovenox ASA Follow up vital signs and correct hyper/hypotension. If needed add pressure support to keep MAP above 65 mmHg Pulmonary follow up Further evaluation and management depends on the above and clinical course A total of 75 minutes was spent reviewing the patient record, examining the patient, making a diagnostic and therapeutic plan, discussing this plan with medical personnel, following up on diagnostic studies and following the patient for clinical stability excluding any and all procedures. At least 50% of this time was spent in direct, [id number] contact. Thank you for allowing me to participate in this patient's care. Further recommendations will depend on patient's clinical course. Please do not hesitate to contact me if you have any questions or concerns. This medical document was created using electronic medical record system with [employer] computerized dictation system. Although this document has been carefully reviewed, there may still be some phonetic and typographical errors. These areas are purely typographical due to the imperfection of the software programs, and do not reflect any compromise in the patient's medical care. Dietary Evaluation Review Comments: Current Jevity 1.2 @60ml/hr TF is meeting pt's need for protein at 60% for energy at 117% Continue monitor nutrition progress of nutrition support to meet 75% of his needs. Advance to a cardiac diet, texture as tolerated when medically feasible. Expected Outcomes/Goals: gradual weight loss Plan discussed with: Other (nurse) PARRIS MCKINNON MD Feb 05, 2024 08:10
--- NOTE | 2024-02-05 12:38 | DVHNC2 ---
Procedure - Bronchoscopy procedure note: Indications: Increased ET tube secretions, Possible mucous plugging. 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 Complications: None Procedure: Patient medications and allergies reviewed. The risks and benefits of the procedure and the sedation options and risk were discussed with the patient's healthcare proxy. All questions were answered and informed consent was obtained. Patient identification and proposed procedure were verified prior to the procedure by the physician, and a nurse, and the respiratory therapist in ICU room. The heart rate, respiratory rate, oxygen saturations, blood pressure, adequacy of pulmonary ventilation, and response to care were monitored throughout the procedure. The physical status of the patient was reassessed after the procedure. After obtaining informed consent, the bronchoscope was introduced through the endotracheal tube and advanced into the trachea bronchial tree of both lungs. The procedure was accomplished without difficulty. The patient tolerated the procedure well. Findings: The trachea is in normal caliber. The zbigniew is sharp. The tracheobronchial tree of the right lung was examined to at least the first subsegmental level. The bronchial mucosa and anatomy in the right lung are normal. There are no endobronchial lesions. There was copious whitish secretions from right main stem bronchus onward throughout R6-R10. Right middle lobe (RML) Bronchoalveolar lavage (BAL) obtained. RML BAL sent for gram stain and culture. The left upper lobe, lingula, and left lower lobe were examined to at least the first subsegmental level. Bronchial mucosa and anatomy in the left upper lobe and lingula are normal. There were no endobronchial lesions. There was copious whitish secretions from left main stem bronchus onward throughout L6-L10. Mucous plugging removed from L6-L10. There was no active bleeding at the completion of the procedure. Estimated blood loss: Less than 5 mL. Impression: Left and RIGHT lower lobe atelectasis due to mucous plugging Mucous plugging from L6-L10 and R6-R10 RML BAL performed Recommendation: Follow-up RML BAL results. Procedure codes: 77669, bronchoscopy, rigid and flexible, including fluoroscopic guidance, one performed; with bronchial endobronchial broncho-alveolar lavage, single or multiple sites VERÓNICA MERCER MD Feb 05, 2024 12:38
--- NOTE | 2024-02-05 13:10 | DVHPN2 ---
Progress Note - Dictate Date Seen: Feb 05, 2024 Medical Necessity Reason Pt with a Central, PICC or Fol: Yes The following are medically ne: Reyes Catheter Reason for reyes catheter: Strict I&O vital signs Vital Sign Date Time Temp Pulse Resp B/P (MAP) Pulse Ox O2 Delivery O2 Flow Rate FiO2 02/05/24 13:01 139/65 02/05/24 12:09 111 28 95 40 02/05/24 10:00 Mechanical Ventilator+ 02/05/24 07:47 98.4 98.4 Total Intake and Output 02/04/24 02/04/24 02/05/24 15:00 23:00 07:00 Intake Total 1000.756 ml 960.847 ml 1124.496 ml Output Total 3770 ml 2800 ml Balance 1000.756 ml -2809.153 ml -1675.504 ml medications Current Medications Medications Dose Ordered Sig/Reji Route Start Time Stop Time Status Last Admin Dose Admin Ondansetron HCl 4 mg Q4HP PRN IV 01/19/24 20:15 Pantoprazole Sodium 40 mg DAILY IV 01/20/24 10:00 02/05/24 09:41 40 MG Nitroglycerin 0.4 mg Q5MINP PRN SL 01/19/24 20:15 Midazolam HCl 50 ml @ 1 mls/hr Q24H IV 01/19/24 21:30 02/05/24 13:01 15 MLS/HR Aspirin 81 mg DAILY NG 01/20/24 10:00 02/05/24 09:48 81 MG Atorvastatin Calcium 40 mg HS PO 01/20/24 22:00 02/04/24 21:31 40 MG Latanoprost 1 drop QPM EACHEYE 01/20/24 18:00 02/01/24 16:39 1 DROP Patient Own Medication 400 mg MONTHLY IM 01/20/24 11:30 Lisinopril 20 mg DAILY PO 01/20/24 11:30 02/03/24 09:55 20 MG Nitroglycerin 250 ml @ 1.5 mls/hr Q24H IV 01/20/24 20:30 Albuterol 2.5 mg Q4HR NEB 01/20/24 22:00 02/05/24 10:12 2.5 MG Ipratropium [place] 0.5 mg Q4HR NEB 01/20/24 22:00 02/05/24 10:12 0.5 MG Enteral Nutritional Formula 1,000 ml 60ML/HR GT 01/22/24 14:00 02/01/24 20:06 1,000 ML Methylprednisolone Sodium Succinate 60 mg Q4HR IV 01/24/24 16:00 02/05/24 09:41 60 MG Rocuronium [place] 1000 mg/ Dextrose 250 ml @ 20.832 mls/ hr Q12H1M IV 01/24/24 17:30 02/05/24 04:38 10.416 MLS/HR Norepinephrine Bitartrate 250 ml @ 3.75 mls/hr Q24H IV 01/24/24 18:30 01/31/24 04:07 3.75 MLS/HR Vancomycin HCl 300 ml @ 200 mls/hr Q8H IV 01/28/24 02:00 Cancel Metoclopramide HCl 10 mg Q8HR IV 01/28/24 14:00 02/05/24 05:32 10 MG Docusate Sodium 100 mg BID GT 01/28/24 22:00 02/05/24 09:41 100 MG Fentanyl Citrate 250 ml @ 2.5 mls/hr Q24H IV 01/29/24 04:00 02/05/24 07:31 35 MLS/HR Hydralazine HCl 10 mg Q6HP PRN IV 01/30/24 13:15 02/05/24 02:46 10 MG Acetaminophen 650 mg Q4HP PRN PO 01/31/24 07:30 02/01/24 12:21 650 MG Quetiapine Fumarate 50 mg BID PO 01/31/24 10:00 02/04/24 21:31 50 MG Furosemide 40 mg BIDD IV 02/02/24 10:30 02/05/24 05:32 40 MG Propofol 100 ml @ 4.599 mls/ hr [id number] IV 02/02/24 22:45 02/05/24 11:17 18.396 MLS/HR Amino Acids 0 ml @ 0 mls/hr PER PHARMACY IV 02/03/24 12:15 Diagnostic Test (Pha) 1 strip Q6HR 02/03/24 18:00 02/05/24 05:33 1 STRIP Insulin Human Regular FOLLOW SLIDING SCALE Q6HR SC 02/03/24 18:00 02/05/24 06:26 16 UNITS Dextrose 50 ml UD IV 02/03/24 12:15 Insulin Glargine 20 units BID@1000,2200 SC 02/04/24 10:00 02/05/24 09:51 20 UNITS Sodium Chloride 60 meq/Sodium Phosphate 20 meq/ Potassium Chloride 40 meq/ Calcium Gluconate 4.65 meq/ Magnesium Sulfate 4 meq/ Multivitamins 10 ml/Insulin Human Regular 24 units/ Amino Acids/ Dextrose/Purified Water 1,161.24 ml @ 48 mls/hr [id number] IV 02/04/24 22:00 02/05/24 21:59 02/04/24 21:40 48 MLS/HR Cefepime HCl 50 ml @ 12.5 mls/hr Q8HR IV 02/04/24 14:00 02/05/24 05:33 12.5 MLS/HR Sodium Chloride 60 meq/Sodium Phosphate 30 meq/ Potassium Chloride 60 meq/ Calcium Gluconate 2.3 meq/Magnesium Sulfate 8 meq/ Multivitamins 10 ml/Insulin Human Regular 35 units/ Amino Acids/ Dextrose/Purified Water 1,219.7962 ml @ 51 mls/hr [id number] IV 02/05/24 22:00 02/06/24 21:59 objective General Appearance: alert, no distress HEENT: EOMI, PERRLA, normal external inspect of ears, no icterus, no nasal drainage Neck: no carotid bruit, no jugular venous distention (JVD), no lymphadenopathy Chest: normal thorax Respiratory: clear to auscultation Cardiovascular: regular rate and rhythm, no diastolic murmur, no jugular venous distention (JVD), no rub, no systolic murmur Abdominal: soft, no hepatomegaly, no mass, no splenomegaly, no tenderness Genitourinary: grossly normal external Musculoskeletal: no joint tenderness, no swelling Extremities: normal pulses, no calf tenderness, no clubbing, no cyanosis, no edema Skin: no bruising, no jaundice, no rash Neurological: alert, No focal deficit laboratory and microbiology Laboratory Tests 02/05/24 03:27 02/03/24 03:07 Test 02/05/24 03:27 Range/Units Serum Glucose 357 H 74-106 mg/dL Problem List 1. Asthma with acute exacerbation Pulmonary consult, monitoring 2. Acute hypoxic respiratory failure requiring intubation Pulmonary Consult 3. Schizophrenia Monitoring 4. Autism Medication, monitoring 5. Elevated Troponin Cardiology Consult, monitoring 6. Cannabis Use Education Assessment/Plan Subjective: Patient remains intubated and sedated with Versed and fentanyl and diprivan. Objective: Patient was admitted on January 19, 2024. Patient was emergently intubated for respiratory failure due to asthma exacerbation. Patient has sepsis with pneumonia. Patient was seen by infectious disease. Patient had a bronchoscopy done today. Copious white secretions and mucous plugs were removed. Plan: Continue sedation and ventilator management per pulmonary. Continue antibiotics per ID. Monitor daily labs. Continue TPN. Insulin sliding scale was adjusted. Patient remains glycemic. IV Solu-Medrol was weaned down. Dietary Evaluation Review Comments: Current Jevity 1.2 @60ml/hr TF is meeting pt's need for protein at 60% for energy at 117% Continue monitor nutrition progress of nutrition support to meet 75% of his needs. Advance to a cardiac diet, texture as tolerated when medically feasible. Expected Outcomes/Goals: gradual weight loss Plan discussed with: Patient, Other VIK CO[employer]OS [employer] Feb 05, 2024 13:10
[2024-02-05] MEDS ORDERED: DEXTROSE (50%) 50ML SYRG IV PRN (13:15)
[2024-02-05] MEDS: methylPREDNISolone SOD SUCC 125 MG/2 ML VL IV SCH (14:40)
[2024-02-05] MEDS: InsuLIN REG 1unit/0.01ml Soln (100units/ml) SC SCH (16:02)
--- NOTE | 2024-02-05 16:05 | DVHPN2 ---
Progress Note - Dictate Date Seen: Feb 05, 2024 Medical Necessity Reason Pt with a Central, PICC or Fol: Yes The following are medically ne: Reyes Catheter Reason for reyes catheter: Strict I&O Subjective Patient remains intubated. No new acute complaints noted at this time. WBC trending down fio2 40% vital signs Vital Sign Date Time Temp Pulse Resp B/P (MAP) Pulse Ox O2 Delivery O2 Flow Rate FiO2 02/05/24 14:42 115/56 02/05/24 14:21 56 28 99 40 02/05/24 14:00 Mechanical Ventilator+ 02/05/24 07:47 98.4 98.4 Total Intake and Output 02/04/24 02/04/24 02/05/24 15:00 23:00 07:00 Intake Total 1000.756 ml 960.847 ml 1124.496 ml Output Total 3770 ml 2800 ml Balance 1000.756 ml -2809.153 ml -1675.504 ml medications Current Medications Medications Dose Ordered Sig/Reji Route Start Time Stop Time Status Last Admin Dose Admin Ondansetron HCl 4 mg Q4HP PRN IV 01/19/24 20:15 Pantoprazole Sodium 40 mg DAILY IV 01/20/24 10:00 02/05/24 09:41 40 MG Nitroglycerin 0.4 mg Q5MINP PRN SL 01/19/24 20:15 Midazolam HCl 50 ml @ 1 mls/hr Q24H IV 01/19/24 21:30 02/05/24 13:01 15 MLS/HR Aspirin 81 mg DAILY NG 01/20/24 10:00 02/05/24 09:48 81 MG Atorvastatin Calcium 40 mg HS PO 01/20/24 22:00 02/04/24 21:31 40 MG Latanoprost 1 drop QPM EACHEYE 01/20/24 18:00 02/01/24 16:39 1 DROP Patient Own Medication 400 mg MONTHLY IM 01/20/24 11:30 Lisinopril 20 mg DAILY PO 01/20/24 11:30 02/03/24 09:55 20 MG Nitroglycerin 250 ml @ 1.5 mls/hr Q24H IV 01/20/24 20:30 Albuterol 2.5 mg Q4HR NEB 01/20/24 22:00 02/05/24 14:20 2.5 MG Ipratropium [place] 0.5 mg Q4HR NEB 01/20/24 22:00 02/05/24 14:21 0.5 MG Enteral Nutritional Formula 1,000 ml 60ML/HR GT 01/22/24 14:00 02/01/24 20:06 1,000 ML Rocuronium [place] 1000 mg/ Dextrose 250 ml @ 20.832 mls/ hr Q12H1M IV 01/24/24 17:30 02/05/24 04:38 10.416 MLS/HR Norepinephrine Bitartrate 250 ml @ 3.75 mls/hr Q24H IV 01/24/24 18:30 01/31/24 04:07 3.75 MLS/HR Vancomycin HCl 300 ml @ 200 mls/hr Q8H IV 01/28/24 02:00 Cancel Metoclopramide HCl 10 mg Q8HR IV 01/28/24 14:00 02/05/24 14:51 10 MG Docusate Sodium 100 mg BID GT 01/28/24 22:00 02/05/24 09:41 100 MG Fentanyl Citrate 250 ml @ 2.5 mls/hr Q24H IV 01/29/24 04:00 02/05/24 14:42 35 MLS/HR Hydralazine HCl 10 mg Q6HP PRN IV 01/30/24 13:15 02/05/24 02:46 10 MG Acetaminophen 650 mg Q4HP PRN PO 01/31/24 07:30 02/01/24 12:21 650 MG Quetiapine Fumarate 50 mg BID PO 01/31/24 10:00 02/04/24 21:31 50 MG Furosemide 40 mg BIDD IV 02/02/24 10:30 02/05/24 05:32 40 MG Propofol 100 ml @ 4.599 mls/ hr [id number] IV 02/02/24 22:45 02/05/24 11:17 18.396 MLS/HR Amino Acids 0 ml @ 0 mls/hr PER PHARMACY IV 02/03/24 12:15 Insulin Glargine 20 units BID@1000,2200 SC 02/04/24 10:00 02/05/24 09:51 20 UNITS Sodium Chloride 60 meq/Sodium Phosphate 20 meq/ Potassium Chloride 40 meq/ Calcium Gluconate 4.65 meq/ Magnesium Sulfate 4 meq/ Multivitamins 10 ml/Insulin Human Regular 24 units/ Amino Acids/ Dextrose/Purified Water 1,161.24 ml @ 48 mls/hr [id number] IV 02/04/24 22:00 02/05/24 21:59 02/04/24 21:40 48 MLS/HR Cefepime HCl 50 ml @ 12.5 mls/hr Q8HR IV 02/04/24 14:00 02/05/24 14:40 12.5 MLS/HR Sodium Chloride 60 meq/Sodium Phosphate 30 meq/ Potassium Chloride 60 meq/ Calcium Gluconate 2.3 meq/Magnesium Sulfate 8 meq/ Multivitamins 10 ml/Insulin Human Regular 35 units/ Amino Acids/ Dextrose/Purified Water 1,219.7962 ml @ 51 mls/hr [id number] IV 02/05/24 22:00 02/06/24 21:59 Methylprednisolone Sodium Succinate 60 mg Q8HR IV 02/05/24 14:00 02/05/24 14:50 60 MG Diagnostic Test (Pha) 1 strip Q6HR 02/05/24 18:00 Dextrose 50 ml UD PRN IV 02/05/24 13:15 Insulin Human Regular Q6HR SC 02/05/24 15:15 objective Gen.: Patient lying in bed in medical ICU. Sedated, intubated on mechanical ventilator. Head: Normocephalic, atraumatic. Eyes: PERRLA. Ears: Normal external anatomy. Throat: Endotracheal tube and orogastric tube in place. Neck: Supple, trachea midline. Chest: Decreased air entry bilaterally. No wheezing. Bibasilar crackles. Cardiovascular: Positive S1, positive S2. Regular rate and rhythm. Abdomen: . Soft, nontender, nondistended. : Reyes in place. Normal external genitalia. Rectal: Deferred. Skin: Warm, dry. Intact. Extremities: No lower extremity edema. Neuro: Sedated. laboratory and microbiology Laboratory Tests 02/05/24 03:27 02/03/24 03:07 Test 02/05/24 03:27 Range/Units Serum Glucose 357 H 74-106 mg/dL Assessment/Plan Patient is a 28-year-old male presented to the hospital with: # thrombocytopenia Multifocal pneumonia: [place] ARDS Acute hypoxic respiratory failure On mechanical ventilator Coag negative staphylococcus bacteremia leucocytosis Acute exacerbation of asthma Elevated Troponin Schizophrenia Autism Cannabinoid Use Morbid obesity BMI 60.5 Pulmonary edema Recommendations: reviewed cultures since admission listed below Culture History: 01/21, Blood culture showed Growth Of Coagulase Negative Staphylococcus 01/30, Urine culture: No growth monitored 01/30, Sputum culture showed Klebsiella pneumoniae MRSA screen neg antibiotics history Vancomycin 01/22- Linezolid 01/27- now Zosyn: 01/31- now blood cx seems to look contaminations, + 1/2. discontinued Linezolid ( also platelets dropping) CXR shows multifocal infiltrate suggestive of ARDS, he is requiring high FIO2, possibly associated with pulm edema and bacterial pneumonia [place] is pansensitive, switched to cefepime. ( total duration of antibiotics 7-10 days including zosyn which was started on 01/31 pulmonary is on board, possible plan for bronchoscopy lasix prognosis is very poor. critical time 35 minutes spent. Thank you for consult and for giving an opportunity to take care of this patient. Dietary Evaluation Review Comments: Current Jevity 1.2 @60ml/hr TF is meeting pt's need for protein at 60% for energy at 117% Continue monitor nutrition progress of nutrition support to meet 75% of his needs. Advance to a cardiac diet, texture as tolerated when medically feasible. Expected Outcomes/Goals: gradual weight loss Plan discussed with: EBEN Singh MD Feb 05, 2024 16:05
[2024-02-05] MEDS: ACCU-CHEK COMFORT CURVE STRIP VI SCH (17:45)
[2024-02-05] MEDS ORDERED: InsuLIN REG 1unit/0.01ml Soln (100units/ml) SC SCH (18:00)
--- NOTE | 2024-02-05 21:28 | DVHPN2 ---
Progress Note - Dictate Date Seen: Feb 05, 2024 Medical Necessity Reason Pt with a Central, PICC or Fol: Yes The following are medically ne: Reyes Catheter Reason for reyes catheter: Strict I&O Subjective Patient seen and examined at bedside. Sedated, intubated on mechanical ventilator. Overnight events reviewed. vital signs Vital Sign Date Time Temp Pulse Resp B/P (MAP) Pulse Ox O2 Delivery O2 Flow Rate FiO2 02/05/24 20:46 135/70 02/05/24 19:36 57 28 98 40 02/05/24 18:57 99.0 210.2 02/05/24 18:00 Mechanical Ventilator+ Total Intake and Output 02/04/24 02/04/24 02/05/24 15:00 23:00 07:00 Intake Total 1000.756 ml 960.847 ml 1124.496 ml Output Total 3770 ml 2800 ml Balance 1000.756 ml -2809.153 ml -1675.504 ml medications Current Medications Medications Dose Ordered Sig/Reji Route Start Time Stop Time Status Last Admin Dose Admin Ondansetron HCl 4 mg Q4HP PRN IV 01/19/24 20:15 Pantoprazole Sodium 40 mg DAILY IV 01/20/24 10:00 02/05/24 09:41 40 MG Nitroglycerin 0.4 mg Q5MINP PRN SL 01/19/24 20:15 Midazolam HCl 50 ml @ 1 mls/hr Q24H IV 01/19/24 21:30 02/05/24 20:09 15 MLS/HR Aspirin 81 mg DAILY NG 01/20/24 10:00 02/05/24 09:48 81 MG Atorvastatin Calcium 40 mg HS PO 01/20/24 22:00 02/04/24 21:31 40 MG Latanoprost 1 drop QPM EACHEYE 01/20/24 18:00 02/05/24 18:00 1 DROP Patient Own Medication 400 mg MONTHLY IM 01/20/24 11:30 Lisinopril 20 mg DAILY PO 01/20/24 11:30 02/03/24 09:55 20 MG Nitroglycerin 250 ml @ 1.5 mls/hr Q24H IV 01/20/24 20:30 Albuterol 2.5 mg Q4HR NEB 01/20/24 22:00 02/05/24 17:54 2.5 MG Ipratropium [place] 0.5 mg Q4HR NEB 01/20/24 22:00 02/05/24 17:54 0.5 MG Enteral Nutritional Formula 1,000 ml 60ML/HR GT 01/22/24 14:00 02/01/24 20:06 1,000 ML Rocuronium [place] 1000 mg/ Dextrose 250 ml @ 20.832 mls/ hr Q12H1M IV 01/24/24 17:30 02/05/24 18:09 8.333 MLS/HR Norepinephrine Bitartrate 250 ml @ 3.75 mls/hr Q24H IV 01/24/24 18:30 01/31/24 04:07 3.75 MLS/HR Vancomycin HCl 300 ml @ 200 mls/hr Q8H IV 01/28/24 02:00 Cancel Metoclopramide HCl 10 mg Q8HR IV 01/28/24 14:00 02/05/24 14:51 10 MG Docusate Sodium 100 mg BID GT 01/28/24 22:00 02/05/24 09:41 100 MG Fentanyl Citrate 250 ml @ 2.5 mls/hr Q24H IV 01/29/24 04:00 02/05/24 14:42 35 MLS/HR Hydralazine HCl 10 mg Q6HP PRN IV 01/30/24 13:15 02/05/24 02:46 10 MG Acetaminophen 650 mg Q4HP PRN PO 01/31/24 07:30 02/01/24 12:21 650 MG Quetiapine Fumarate 50 mg BID PO 01/31/24 10:00 02/04/24 21:31 50 MG Furosemide 40 mg BIDD IV 02/02/24 10:30 02/05/24 17:45 40 MG Propofol 100 ml @ 4.599 mls/ hr [id number] IV 02/02/24 22:45 02/05/24 20:46 18.396 MLS/HR Amino Acids 0 ml @ 0 mls/hr PER PHARMACY IV 02/03/24 12:15 Insulin Glargine 20 units BID@1000,2200 SC 02/04/24 10:00 02/05/24 09:51 20 UNITS Sodium Chloride 60 meq/Sodium Phosphate 20 meq/ Potassium Chloride 40 meq/ Calcium Gluconate 4.65 meq/ Magnesium Sulfate 4 meq/ Multivitamins 10 ml/Insulin Human Regular 24 units/ Amino Acids/ Dextrose/Purified Water 1,161.24 ml @ 48 mls/hr [id number] IV 02/04/24 22:00 02/05/24 21:59 02/04/24 21:40 48 MLS/HR Cefepime HCl 50 ml @ 12.5 mls/hr Q8HR IV 02/04/24 14:00 02/05/24 14:40 12.5 MLS/HR Sodium Chloride 60 meq/Sodium Phosphate 30 meq/ Potassium Chloride 60 meq/ Calcium Gluconate 2.3 meq/Magnesium Sulfate 8 meq/ Multivitamins 10 ml/Insulin Human Regular 35 units/ Amino Acids/ Dextrose/Purified Water 1,219.7962 ml @ 51 mls/hr [id number] IV 02/05/24 22:00 02/06/24 21:59 Methylprednisolone Sodium Succinate 60 mg Q8HR IV 02/05/24 14:00 02/05/24 14:50 60 MG Diagnostic Test (Pha) 1 strip Q6HR 02/05/24 18:00 02/05/24 17:45 1 STRIP Dextrose 50 ml UD PRN IV 02/05/24 13:15 Insulin Human Regular Q6HR SC 02/05/24 15:15 02/05/24 18:03 16 UNITS objective Gen.: Patient lying in bed in medical ICU. Sedated, intubated on mechanical ventilator. Head: Normocephalic, atraumatic. Eyes: PERRLA. Ears: Normal external anatomy. Throat: Endotracheal tube and orogastric tube in place. Neck: Supple, trachea midline. Chest: Transmitted breath sounds bilaterally. Decreased air entry bilaterally. No wheezing. Bibasilar crackles. Cardiovascular: Positive S1, positive S2. Regular rate and rhythm. Abdomen: Positive bowel sounds in all 4 quadrants. Soft, nontender, nondistended. : Reyes in place. Normal external genitalia. Rectal: Deferred. Skin: Warm, dry. Intact. Extremities: 2+ radial pulses bilaterally. No lower extremity edema. Neuro: Sedated. laboratory and microbiology Laboratory Tests 02/05/24 03:27 02/03/24 03:07 Test 02/05/24 03:27 Range/Units Serum Glucose 357 H 74-106 mg/dL Assessment/Plan Impression: Acute hypoxic respiratory failure On mechanical ventilator Acute exacerbation of asthma Elevated Troponin Schizophrenia Autism Cannabinoid Use Morbid obesity BMI 60.5 Pulmonary edema Events: Remains on vent support On AC mode with RR 28, VT 500, PEEP 12, FiO2 40% Improved O2 requirements PEEP decreased to 10 cmH2O Sedated on Propofol, Versed, Fentanyl Remains on Rocuronium drip for paralytic. WBC trending down, 16.3 K Increased ET tube secretions, possible mucous plugging Bronchoscopy w/ BAL was performed. Bilateral lower lobe mucous plugs noted. RML BAL obtained. ABG reviewed. Compensated. CXR demonstrates devices in place; right lower lobe opacities. Seroquel 50 mg q.12 hours. Continue bronchodilators IV steroids Continue antibiotics Tube feeds for nutritional support Diurese to euvolemia - Lasix BID Monitor renal function Monitor electrolytes. Supplement as necessary. Monitor ins and outs. Taper down FiO2 as tolerated Recommend trach/PEG to liberate from vent. Labs and imaging reviewed. Rest of plan as noted below. Plan: s/p intubation on mechanical ventilator. On AC mode with RR 28, VT 500, PEEP 12 -->10, FiO2 40% Titrate FIO2 to keep O2 saturation above 90%. VAP bundle. Daily ABG and CXR while intubated Sedate for ventilator synchrony Pt does not tolerate turns. Derecruitment. Turn carefully. Elevated Troponin - Cardiology recs appreciated. Continue bronchodilators Antibiotics. F/u cultures. Pressors if necessary for hemodynamic support Titrate to keep mean arterial pressure greater than 65 mmHg. Currently off pressors, hemodynamically stable. Diurese to euvolemia Monitor renal function Monitor electrolytes. Supplement as necessary. Monitor ins and outs. Diet and lifestyle modifications for weight reduction Morbid obesity - complicates all care GI prophylaxis. DVT prophylaxis. Prognosis: Poor given patient's multiple co-morbidities. Condition: Critical Rest of plan per hospitalist and other consultants. A total of 35 minutes of critical care time was spent reviewing the patient record, examining the patient, making a diagnostic and therapeutic plan, discussing this plan with the medical personnel, following up on diagnostic studies and following the patient for clinical stability excluding any and all procedures. At least 50% of this time was spent in direct, [id number] contact. Thank you Irma Velasquez NP, for allowing me to participate in this patient's care. Further recommendations will depend on the patient's clinical course. Please do not hesitate to contact me if you have any questions or concerns. This medical document was created using an electronic medical record system with anydooR dictation system. Although these documentations are being carefully reviewed, there may still be some phonetic and typographical changes. The errors are purely typographical, due to imperfection on the software program, and do not reflect any compromise in the patient's medical care. Dietary Evaluation Review Comments: Current Jevity 1.2 @60ml/hr TF is meeting pt's need for protein at 60% for energy at 117% Continue monitor nutrition progress of nutrition support to meet 75% of his needs. Advance to a cardiac diet, texture as tolerated when medically feasible. Expected Outcomes/Goals: gradual weight loss Plan discussed with: Other (SAIGE Marquez) Critical Care Time(min): 35 VERÓNICA MERCER MD Feb 05, 2024 21:28
[2024-02-05] MEDS: TPN PER PHARMACY IV NR (21:33)
[2024-02-06] VITALS (119 sets, daily range): BP systolic 97–155; BP diastolic 35–94; PULSE 56–119; RESP 26–35; TEMP 98.7–99.4; O2SAT 92–100
[2024-02-06 04:22] LABS: Alkaline Phosphatase 95 U/L (46-116); Anion Gap 5 (5-15); Aspartate Aminotransferase 29 U/L (13-40); BUN/Creatinine Ratio 52.6 (10.0-20.0); Blood Urea Nitrogen 20 mg/dL (9-23); Chloride 101 mmol/L (98-107); Phosphorus 2.8 mg/dL (2.4-5.1); Potassium 3.6 mmol/L (3.5-5.1); Sodium 139 mmol/L (136-145)
[2024-02-06 04:44] LABS: Carbon Dioxide 33 mmol/L (20-31); Glucose 190 mg/dL (74-106)
[2024-02-06 04:45] LABS: Alanine Aminotransferase 81 U/L (7-40); Albumin 3.1 g/dL (3.2-4.8); Bilirubin, Total 1.7 mg/dL (0.2-1.0); Total Protein 5.5 g/dL (5.7-8.2)
--- NOTE | 2024-02-06 05:10 | DVH ---
CHEST RADIOGRAPH Indication: pneumonia Technique: Single frontal view of the chest was obtained Comparison: XY CHEST XRAY 1 VIEW on DOS: 02/05/24 FINDINGS: Lines and Tubes: The endotracheal tube terminates above the zbigniew. The enteric tube and left central venous catheter are unchanged in position. Lungs: Right middle lobe consolidation. Bilateral prominent interstitial markings. Pleura: No significant pleural effusion on the right. Can not exclude left pleural effusion obscurin g the left hemidiaphragm. No pneumothorax. Cardiomediastinal contours: Stable cardiomegaly. Bones: No acute osseous abnormality. IMPRESSION: 1. Right middle lobe consolidation which may represent pneumonia. 2. Pulmonary congestion. 3. Obscuration of the left hemidiaphragm for which left pleural effusion is not excluded. 4. Stable cardiomegaly.
--- NOTE | 2024-02-06 07:58 | DVHPN2 ---
Progress Note - Dictate Date Seen: Feb 06, 2024 Medical Necessity Reason Pt with a Central, PICC or Fol: Yes The following are medically ne: Reyes Catheter Reason for reyes catheter: Strict I&O vital signs Vital Sign Date Time Temp Pulse Resp B/P (MAP) Pulse Ox O2 Delivery O2 Flow Rate FiO2 02/06/24 06:42 105 28 125/68 (87) 97 02/06/24 06:06 40 02/06/24 06:00 Mechanical Ventilator+ 02/06/24 03:57 99.0 99.0 Total Intake and Output 02/05/24 02/05/24 02/06/24 15:00 23:00 07:00 Intake Total 1062.924 ml 1047.431 ml 978.836 ml Output Total 1900 ml 1700 ml Balance 1062.924 ml -852.569 ml -721.164 ml medications Current Medications Medications Dose Ordered Sig/Reji Route Start Time Stop Time Status Last Admin Dose Admin Ondansetron HCl 4 mg Q4HP PRN IV 01/19/24 20:15 Pantoprazole Sodium 40 mg DAILY IV 01/20/24 10:00 02/05/24 09:41 40 MG Nitroglycerin 0.4 mg Q5MINP PRN SL 01/19/24 20:15 Midazolam HCl 50 ml @ 1 mls/hr Q24H IV 01/19/24 21:30 02/06/24 06:36 15 MLS/HR Aspirin 81 mg DAILY NG 01/20/24 10:00 02/05/24 09:48 81 MG Atorvastatin Calcium 40 mg HS PO 01/20/24 22:00 02/05/24 21:30 40 MG Latanoprost 1 drop QPM EACHEYE 01/20/24 18:00 02/05/24 18:00 1 DROP Patient Own Medication 400 mg MONTHLY IM 01/20/24 11:30 Lisinopril 20 mg DAILY PO 01/20/24 11:30 02/03/24 09:55 20 MG Nitroglycerin 250 ml @ 1.5 mls/hr Q24H IV 01/20/24 20:30 Albuterol 2.5 mg Q4HR NEB 01/20/24 22:00 02/06/24 06:05 2.5 MG Ipratropium [place] 0.5 mg Q4HR NEB 01/20/24 22:00 02/06/24 06:06 0.5 MG Enteral Nutritional Formula 1,000 ml 60ML/HR GT 01/22/24 14:00 02/01/24 20:06 1,000 ML Rocuronium [place] 1000 mg/ Dextrose 250 ml @ 20.832 mls/ hr Q12H1M IV 01/24/24 17:30 02/05/24 18:09 8.333 MLS/HR Norepinephrine Bitartrate 250 ml @ 3.75 mls/hr Q24H IV 01/24/24 18:30 01/31/24 04:07 3.75 MLS/HR Vancomycin HCl 300 ml @ 200 mls/hr Q8H IV 01/28/24 02:00 Cancel Metoclopramide HCl 10 mg Q8HR IV 01/28/24 14:00 02/06/24 05:34 10 MG Docusate Sodium 100 mg BID GT 01/28/24 22:00 02/05/24 21:30 100 MG Fentanyl Citrate 250 ml @ 2.5 mls/hr Q24H IV 01/29/24 04:00 02/06/24 04:12 35 MLS/HR Hydralazine HCl 10 mg Q6HP PRN IV 01/30/24 13:15 02/05/24 02:46 10 MG Acetaminophen 650 mg Q4HP PRN PO 01/31/24 07:30 02/01/24 12:21 650 MG Quetiapine Fumarate 50 mg BID PO 01/31/24 10:00 02/05/24 21:30 50 MG Furosemide 40 mg BIDD IV 02/02/24 10:30 02/06/24 05:34 40 MG Propofol 100 ml @ 4.599 mls/ hr [id number] IV 02/02/24 22:45 02/06/24 06:36 18.396 MLS/HR Amino Acids 0 ml @ 0 mls/hr PER PHARMACY IV 02/03/24 12:15 Insulin Glargine 20 units BID@1000,2200 SC 02/04/24 10:00 02/05/24 21:32 20 UNITS Cefepime HCl 50 ml @ 12.5 mls/hr Q8HR IV 02/04/24 14:00 02/06/24 05:34 12.5 MLS/HR Sodium Chloride 60 meq/Sodium Phosphate 30 meq/ Potassium Chloride 60 meq/ Calcium Gluconate 2.3 meq/Magnesium Sulfate 8 meq/ Multivitamins 10 ml/Insulin Human Regular 35 units/ Amino Acids/ Dextrose/Purified Water 1,219.7962 ml @ 51 mls/hr [id number] IV 02/05/24 22:00 02/06/24 21:59 02/05/24 21:33 51 MLS/HR Methylprednisolone Sodium Succinate 60 mg Q8HR IV 02/05/24 14:00 02/06/24 05:34 60 MG Diagnostic Test (Pha) 1 strip Q6HR 02/05/24 18:00 02/06/24 05:35 1 STRIP Dextrose 50 ml UD PRN IV 02/05/24 13:15 Insulin Human Regular Q6HR SC 02/05/24 15:15 02/06/24 05:36 8 UNITS laboratory and microbiology Laboratory Tests 02/06/24 03:05 02/03/24 03:07 Test 02/06/24 03:05 Range/Units Serum Glucose 190 #H 74-106 mg/dL Assessment/Plan Patient is 28 year old morbidly obese male who presented to ED with shortness of breath. He has been intubated for respiratory failure and in on vent. support. Information was obtained by reviewing the chart and communicating with staff. Cardiology is involved for cardiac aspects of care. There is no report of chest pain prior to presentation. 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 Intubated and on vent support. Morbidly obese. Does have right sided subclavian access. No JVD. Mucosa is pink and wet. No goiter. Scattered rhonchi is heard. Cardiac: RR, no thrill, no gallop. Abdomen is soft, obese and distended. BS is +. Ext reveal 2+ edema bilaterally. DP is 2+ bilateral PMH reportedly includes Morbid obesity, Asthma (with previous intubations), Autism, Schizophrenia and ANNETTE. Smokes Marijuana and drinks alcohol WBC: 11.6 to 11.2 to 14.2 to 12.2 to 13.3 to 16.4 to 17.5 to 15.3 to 13.8 to 15.7 to 13.8 - 22.2 to 22.3 to 16.3 D-dimer: 0.43 (wnl) Creat: 0.73 - 0.70 - 0.67 - 0.76 - 0.71 - 0.70 - 0.69 - 0.59 - 0.60 - 0.52 - 0.50 - 0.47 - 0.47 - 0.62 - 0.42 - 0.39 - 0.51 - 0.52 - 0.46 - 0.38 K: 4.1 - 4.3 - 4.1 - 4.2 - 4.0 - 4.1 - 4.1 - 3.9 - 4.0 - 3.8 - 4.3 - 4.7 - 4.4 - 4.4 - 4.3 - 4.3 - 4.1 - 3.6 BNP: 561.97 - 173.31 Trop (high sensitive): 61 - 62 - 131 - 132 - 91 - 82 TSH: 0.48 Urine toxicology was positive for Cannabinoids and Benzodiazpin Chest xry revealed: FINDINGS: Lines and Tubes: None Lungs: Obscuration of the left hemidiaphragm Diffuse interstitial prominence. No pneumothorax. Cardiomediastinal contours: Moderate cardiomegaly Bones: No acute osseous abnormality. IMPRESSION: Moderate cardiomegaly with findings suggestive of congestive heart failure. Possible left-sided pleural effusion. Repeat chest xry revealed: Endotracheal tube projects terminating 1.8 cm superior to the zbigniew. Enteric tube is projecting below the GE junction without visualization of the port or tip. Low lung volumes with bronchovascular crowding. Possible small left-sided pleural effusion and/or atelectasis. No pneumothorax. Repeat chest xry revealed: Cardiomediastinal silhouette is enlarged. There is increased pulmonary vascular congestion, similar prior examination. Obscuration of the left hemidiaphragm may be on the basis of technique versus small pleural effusion. No discrete pneumothorax. Endotracheal tube and enteric tube are redemonstrated. Left IJ catheter tip is likely at the region of the brachiocephalic vein. Repeat chest xry revealed: FINDINGS: Cardiomediastinal silhouette is enlarged. There is increased pulmonary vascular congestion, similar prior examination. Obscuration of the left hemidiaphragm may be on the basis of technique versus small pleural effusion. No discrete pneumothorax. Endotracheal tube and enteric tube are redemonstrated. Left IJ catheter tip is likely at the region of the brachiocephalic vein. IMPRESSION: NO INTERVAL CHANGE. Repeat chest xry revealed: IMPRESSION: Improving pulmonary edema compared to prior exam. Repeat chest xry revealed: IMPRESSION: stable pulmonary edema compared to prior exam. Repeat chest xry revealed: IMPRESSION: Lines and tubes in satisfactory position. No significant interval change. Repeat chest xry revealed: IMPRESSION: Lines and tubes in satisfactory position. No significant interval change. Repeat chest xry revealed: IMPRESSION: Lines and tubes in satisfactory position. No significant interval change. Repeat chest xry: IMPRESSION: 1. Stable position of the support lines and tubes. 2. No significant change in diffuse bilateral airspace opacities. Repeat chest xry revealed: IMPRESSION: 1. Endotracheal tube terminates 6.4 symbol the zbigniew. 2. Bilateral airspace disease unchanged. Repeat chest xry revealed: IMPRESSION: 1. Endotracheal tube 4.1 cm above the zbigniew. 2. OG tube not visualized AND may BE IN THE RIGHT MAINSTEM BRONCHUS RECOMMEND REMOVAL AND REPOSITIONING WITH REPEAT CHEST X-RAY. Repeat chest xry revealed: FINDINGS: Endotracheal tube in place 4.4 cm above the zbigniew. Left internal jugular catheter in place in the superior vena cava. Cardiomegaly is noted with pulmonary vascular congestion findings may represent congestive failure other possibility such as pneumonia are in the differential. IMPRESSION: 1. Cardiomegaly with findings of pulmonary vascular congestion. Findings may represent congestive failure or pneumonia. Repeat chest xry revealed: Lines and Tubes: The endotracheal tube terminates 3.1 cm above the zbigniew. Left central venous catheter terminates in the superior vena cava. Enteric tube is visualized to the mid chest but not visualized below the left hemidiaphragm. Lungs: Bilateral airspace disease. Pleura: No effusion. No pneumothorax. Cardiomediastinal contours: Stable cardiomegaly. Bones: No acute osseous abnormality. IMPRESSION: 1. Enteric tube not visualized below the left hemidiaphragm. 2. Bilateral airspace disease similar to prior exam. Repeat chest xry revealed: Limited evaluation given patient positioning. The heart appears markedly enlarged. There are low lung volumes with moderate alveolar airspace opacities suggesting pulmonary edema. No discrete pneumothorax. Endotracheal tube appear stable. Enteric tube is not well visualized. Repeat chest xry revealed: IMPRESSION: 1. Stable appearance of the support lines and tubes. 2. Pulmonary opacities, unchanged. Repeat chest xry revealed: Evaluation limited by patient body habitus. Lines and Tubes: The endotracheal tube terminates 5.7 cm above the zbigniew. Left central venous catheter is unchanged in position. Enteric tube courses below the left hemidiaphragm and outside the field of view. Lungs: Bilateral airspace disease similar to prior study. Pleura: Possible bilateral pleural effusions. No pneumothorax. Cardiomediastinal contours: Stable. Bones: No acute osseous abnormality. IMPRESSION: 1. No significant interval change. Repeat chest xry revealed: IMPRESSION: Right lower lobe pneumonia. Repeat chest xry revealed: IMPRESSION: 1. Right middle lobe consolidation which may represent pneumonia. 2. Pulmonary congestion. 3. Obscuration of the left hemidiaphragm for which left pleural effusion is not excluded. 4. Stable cardiomegaly. KUB revealed: Impression: 1. Nonobstructive bowel gas pattern. 2. Enteric tube overlying the plane of the stomach. 3. No visualized renal calculi. Venous duplex of lower ext revealed: Impression: 1. No right or left femoropopliteal venous thrombosis. 2. Left common femoral vein and proximal superficial femoral vein are not visible and therefore thrombus can not be excluded in those areas. EKG revealed: Sinus tachycardia with non-specific STT changes Tele reveals Sinus rhythm Echocardiogram revealed: Technically limited study secondary to poor acoustic windows. Left ventricle: Left ventricle was normal-sized with normal systolic function. LVEF was 60-65%. There was no gross wall motion abnormality observed. Right ventricle was not well visualized but it was dilated. Left atrium was normal-sized. Right atrium was not well visualized. Aortic valve was trileaflet and normal. There was no aortic insufficiency/stenosis. There was trivial mitral and tricuspid regurgitation. There was mild pulmonary valve insufficiency. As there was no good tricuspid regurgitation jet, right ventricular systolic pressure could not be estimated. There was no pericardial effusion. Patient is 28 year old male with history of morbid obesity who presented with respiratory failure. Does have history of Asthma and reportedly has been intubated for it before. Trop has been mildly elevated. ACS is less likely and increase in troponin most likely represents demand physiology. Still, component of type 1 physiology cannot be completely ruled out. Echo revealed dilated RV. As there was no good TR jet, RVSP could not be estimated. Pulmonary Hypertension cannot be ruled out. Pulmonary on board. On sedation. ID on board Acute respiratory failure Asthma Asthma exacerbation Morbid obesity Abnormal trop Questionable heart failure, acute Pneumonia s/p bronchoscopy Cardiac suggestion for management: Manage in ICU IV diuresis Follow up electrolytes and kidney function test and correct abnormalities. Keep potassium above 4 and magnesium above 2 Lovenox ASA Follow up vital signs and correct hyper/hypotension. If needed add pressure support to keep MAP above 65 mmHg Pulmonary follow up Further evaluation and management depends on the above and clinical course A total of 75 minutes was spent reviewing the patient record, examining the patient, making a diagnostic and therapeutic plan, discussing this plan with medical personnel, following up on diagnostic studies and following the patient for clinical stability excluding any and all procedures. At least 50% of this time was spent in direct, [id number] contact. Thank you for allowing me to participate in this patient's care. Further recommendations will depend on patient's clinical course. Please do not hesitate to contact me if you have any questions or concerns. This medical document was created using electronic medical record system with [employer] computerized dictation system. Although this document has been carefully reviewed, there may still be some phonetic and typographical errors. These areas are purely typographical due to the imperfection of the software programs, and do not reflect any compromise in the patient's medical care. Dietary Evaluation Review Comments: Current Jevity 1.2 @60ml/hr TF is meeting pt's need for protein at 60% for energy at 117% Continue monitor nutrition progress of nutrition support to meet 75% of his needs. Advance to a cardiac diet, texture as tolerated when medically feasible. Expected Outcomes/Goals: gradual weight loss Plan discussed with: Other (nurse) PARRIS MCKINNON MD Feb 06, 2024 07:58
[2024-02-06 08:11] LABS: Base Excess 3.6 mmol/L (-2.0-3.0)
--- NOTE | 2024-02-06 12:56 | DVHPN2 ---
Progress Note - Dictate Date Seen: Feb 06, 2024 Medical Necessity Reason Pt with a Central, PICC or Fol: Yes The following are medically ne: Reyes Catheter Reason for reyes catheter: Strict I&O vital signs Vital Sign Date Time Temp Pulse Resp B/P (MAP) Pulse Ox O2 Delivery O2 Flow Rate FiO2 02/06/24 09:59 71 28 113/51 (71) 99 40 02/06/24 08:00 Mechanical Ventilator+ 02/06/24 03:57 99.0 99.0 Total Intake and Output 02/05/24 02/05/24 02/06/24 15:00 23:00 07:00 Intake Total 1062.924 ml 1047.431 ml 978.836 ml Output Total 1900 ml 1700 ml Balance 1062.924 ml -852.569 ml -721.164 ml medications Current Medications Medications Dose Ordered Sig/Reji Route Start Time Stop Time Status Last Admin Dose Admin Ondansetron HCl 4 mg Q4HP PRN IV 01/19/24 20:15 Pantoprazole Sodium 40 mg DAILY IV 01/20/24 10:00 02/06/24 09:36 40 MG Nitroglycerin 0.4 mg Q5MINP PRN SL 01/19/24 20:15 Midazolam HCl 50 ml @ 1 mls/hr Q24H IV 01/19/24 21:30 02/06/24 10:08 15 MLS/HR Aspirin 81 mg DAILY NG 01/20/24 10:00 02/06/24 09:37 81 MG Atorvastatin Calcium 40 mg HS PO 01/20/24 22:00 02/05/24 21:30 40 MG Latanoprost 1 drop QPM EACHEYE 01/20/24 18:00 02/05/24 18:00 1 DROP Patient Own Medication 400 mg MONTHLY IM 01/20/24 11:30 Lisinopril 20 mg DAILY PO 01/20/24 11:30 02/06/24 09:37 20 MG Nitroglycerin 250 ml @ 1.5 mls/hr Q24H IV 01/20/24 20:30 Albuterol 2.5 mg Q4HR NEB 01/20/24 22:00 02/06/24 09:59 2.5 MG Ipratropium [place] 0.5 mg Q4HR NEB 01/20/24 22:00 02/06/24 09:59 0.5 MG Enteral Nutritional Formula 1,000 ml 60ML/HR GT 01/22/24 14:00 02/01/24 20:06 1,000 ML Rocuronium [place] 1000 mg/ Dextrose 250 ml @ 20.832 mls/ hr Q12H1M IV 01/24/24 17:30 02/05/24 18:09 8.333 MLS/HR Vancomycin HCl 300 ml @ 200 mls/hr Q8H IV 01/28/24 02:00 Cancel Metoclopramide HCl 10 mg Q8HR IV 01/28/24 14:00 02/06/24 05:34 10 MG Docusate Sodium 100 mg BID GT 01/28/24 22:00 02/06/24 09:36 100 MG Fentanyl Citrate 250 ml @ 2.5 mls/hr Q24H IV 01/29/24 04:00 02/06/24 11:10 35 MLS/HR Hydralazine HCl 10 mg Q6HP PRN IV 01/30/24 13:15 02/05/24 02:46 10 MG Acetaminophen 650 mg Q4HP PRN PO 01/31/24 07:30 02/01/24 12:21 650 MG Quetiapine Fumarate 50 mg BID PO 01/31/24 10:00 02/05/24 21:30 50 MG Furosemide 40 mg BIDD IV 02/02/24 10:30 02/06/24 05:34 40 MG Propofol 100 ml @ 4.599 mls/ hr [id number] IV 02/02/24 22:45 02/06/24 06:36 18.396 MLS/HR Amino Acids 0 ml @ 0 mls/hr PER PHARMACY IV 02/03/24 12:15 Insulin Glargine 20 units BID@1000,2200 SC 02/04/24 10:00 02/06/24 09:44 20 UNITS Cefepime HCl 50 ml @ 12.5 mls/hr Q8HR IV 02/04/24 14:00 02/06/24 05:34 12.5 MLS/HR Sodium Chloride 60 meq/Sodium Phosphate 30 meq/ Potassium Chloride 60 meq/ Calcium Gluconate 2.3 meq/Magnesium Sulfate 8 meq/ Multivitamins 10 ml/Insulin Human Regular 35 units/ Amino Acids/ Dextrose/Purified Water 1,219.7962 ml @ 51 mls/hr [id number] IV 02/05/24 22:00 02/06/24 21:59 02/05/24 21:33 51 MLS/HR Methylprednisolone Sodium Succinate 60 mg Q8HR IV 02/05/24 14:00 02/06/24 05:34 60 MG Diagnostic Test (Pha) 1 strip Q6HR 02/05/24 18:00 02/06/24 05:35 1 STRIP Dextrose 50 ml UD PRN IV 02/05/24 13:15 Insulin Human Regular Q6HR SC 02/05/24 15:15 02/06/24 05:36 8 UNITS Sodium Chloride 40 meq/Sodium Phosphate 40 meq/ Potassium Chloride 80 meq/ Magnesium Sulfate 12 meq/ Multivitamins 10 ml/Insulin Human Regular 40 units/ Amino Acids/ Dextrose/Purified Water 1,323.4 ml @ 55 mls/hr Q24H4M IV 02/06/24 22:00 02/07/24 21:59 objective General Appearance: alert, no distress HEENT: EOMI, PERRLA, normal external inspect of ears, no icterus, no nasal drainage Neck: no carotid bruit, no jugular venous distention (JVD), no lymphadenopathy Chest: normal thorax Respiratory: clear to auscultation Cardiovascular: regular rate and rhythm, no diastolic murmur, no jugular venous distention (JVD), no rub, no systolic murmur Abdominal: soft, no hepatomegaly, no mass, no splenomegaly, no tenderness Genitourinary: grossly normal external Musculoskeletal: no joint tenderness, no swelling Extremities: normal pulses, no calf tenderness, no clubbing, no cyanosis, no edema Skin: no bruising, no jaundice, no rash Neurological: alert, No focal deficit laboratory and microbiology Laboratory Tests 02/06/24 03:05 02/03/24 03:07 Test 02/06/24 03:05 Range/Units Serum Glucose 190 #H 74-106 mg/dL Problem List 1. Asthma with acute exacerbation Pulmonary consult, monitoring 2. Acute hypoxic respiratory failure requiring intubation Pulmonary Consult 3. Schizophrenia Monitoring 4. Autism Medication, monitoring 5. Elevated Troponin Cardiology Consult, monitoring 6. Cannabis Use Education Assessment/Plan Subjective Patient remains on sedation and is on the ventilator. Objective Patient is status post bronchoscopy done yesterday. Patient currently on 40% FiO2. Patient was admitted on January 19, 2024 for acute asthma exacerbation and acute hypoxic respiratory failure requiring intubation. Patient was septic. Patient has pneumonia and questionable CHF. Plan Continue nutritional support with TPN. Continue antibiotics with cefepime. Ventilator management per pulmonary. 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 Patient has been on the ventilator for 18 days. Possible trach and PEG. Dietary Evaluation Review Comments: Current Jevity 1.2 @60ml/hr TF is meeting pt's need for protein at 60% for energy at 117% Continue monitor nutrition progress of nutrition support to meet 75% of his needs. Advance to a cardiac diet, texture as tolerated when medically feasible. Expected Outcomes/Goals: gradual weight loss Plan discussed with: Patient, Other VIK COBOS PROGRAM EVALUATOR Feb 06, 2024 12:56
[2024-02-06] MEDS: POTASSIUM CHL 20MEQ/100ML 100 ML IV ONE (13:19)
--- NOTE | 2024-02-06 19:39 | DVHPN2 ---
Progress Note - Dictate Date Seen: Feb 06, 2024 Medical Necessity Reason Pt with a Central, PICC or Fol: Yes The following are medically ne: Reyes Catheter Reason for reyes catheter: Strict I&O Subjective Patient remains intubated. No new acute complaints noted at this time. WBC trending down fio2 30% vital signs Vital Sign Date Time Temp Pulse Resp B/P (MAP) Pulse Ox O2 Delivery O2 Flow Rate FiO2 02/06/24 18:57 69 28 124/54 (77) 100 02/06/24 18:05 30 02/06/24 18:00 Mechanical Ventilator+ 02/06/24 16:12 99.2 99.2 Total Intake and Output 02/05/24 02/05/24 02/06/24 15:00 23:00 07:00 Intake Total 1062.924 ml 1047.431 ml 978.836 ml Output Total 1900 ml 1700 ml Balance 1062.924 ml -852.569 ml -721.164 ml medications Current Medications Medications Dose Ordered Sig/Reji Route Start Time Stop Time Status Last Admin Dose Admin Ondansetron HCl 4 mg Q4HP PRN IV 01/19/24 20:15 Pantoprazole Sodium 40 mg DAILY IV 01/20/24 10:00 02/06/24 09:36 40 MG Nitroglycerin 0.4 mg Q5MINP PRN SL 01/19/24 20:15 Midazolam HCl 50 ml @ 1 mls/hr Q24H IV 01/19/24 21:30 02/06/24 16:33 15 MLS/HR Aspirin 81 mg DAILY NG 01/20/24 10:00 02/06/24 09:37 81 MG Atorvastatin Calcium 40 mg HS PO 01/20/24 22:00 02/05/24 21:30 40 MG Latanoprost 1 drop QPM EACHEYE 01/20/24 18:00 02/06/24 17:58 1 DROP Patient Own Medication 400 mg MONTHLY IM 01/20/24 11:30 Lisinopril 20 mg DAILY PO 01/20/24 11:30 02/06/24 09:37 20 MG Nitroglycerin 250 ml @ 1.5 mls/hr Q24H IV 01/20/24 20:30 Albuterol 2.5 mg Q4HR NEB 01/20/24 22:00 02/06/24 18:13 2.5 MG Ipratropium [place] 0.5 mg Q4HR NEB 01/20/24 22:00 02/06/24 18:13 0.5 MG Enteral Nutritional Formula 1,000 ml 60ML/HR GT 01/22/24 14:00 02/01/24 20:06 1,000 ML Rocuronium [place] 1000 mg/ Dextrose 250 ml @ 20.832 mls/ hr Q12H1M IV 01/24/24 17:30 02/05/24 18:09 8.333 MLS/HR Vancomycin HCl 300 ml @ 200 mls/hr Q8H IV 01/28/24 02:00 Cancel Metoclopramide HCl 10 mg Q8HR IV 01/28/24 14:00 02/06/24 13:20 10 MG Docusate Sodium 100 mg BID GT 01/28/24 22:00 02/06/24 09:36 100 MG Fentanyl Citrate 250 ml @ 2.5 mls/hr Q24H IV 01/29/24 04:00 02/06/24 18:02 35 MLS/HR Hydralazine HCl 10 mg Q6HP PRN IV 01/30/24 13:15 02/05/24 02:46 10 MG Acetaminophen 650 mg Q4HP PRN PO 01/31/24 07:30 02/01/24 12:21 650 MG Quetiapine Fumarate 50 mg BID PO 01/31/24 10:00 02/06/24 13:16 50 MG Furosemide 40 mg BIDD IV 02/02/24 10:30 02/06/24 17:58 40 MG Propofol 100 ml @ 4.599 mls/ hr [id number] IV 02/02/24 22:45 02/06/24 16:32 18.396 MLS/HR Amino Acids 0 ml @ 0 mls/hr PER PHARMACY IV 02/03/24 12:15 Insulin Glargine 20 units BID@1000,2200 SC 02/04/24 10:00 02/06/24 09:44 20 UNITS Cefepime HCl 50 ml @ 12.5 mls/hr Q8HR IV 02/04/24 14:00 02/06/24 13:19 12.5 MLS/HR Sodium Chloride 60 meq/Sodium Phosphate 30 meq/ Potassium Chloride 60 meq/ Calcium Gluconate 2.3 meq/Magnesium Sulfate 8 meq/ Multivitamins 10 ml/Insulin Human Regular 35 units/ Amino Acids/ Dextrose/Purified Water 1,219.7962 ml @ 51 mls/hr [id number] IV 02/05/24 22:00 02/06/24 21:59 02/05/24 21:33 51 MLS/HR Methylprednisolone Sodium Succinate 60 mg Q8HR IV 02/05/24 14:00 02/06/24 13:20 60 MG Diagnostic Test (Pha) 1 strip Q6HR 02/05/24 18:00 02/06/24 18:04 1 STRIP Dextrose 50 ml UD PRN IV 02/05/24 13:15 Insulin Human Regular Q6HR SC 02/05/24 15:15 02/06/24 18:03 12 UNITS Sodium Chloride 40 meq/Sodium Phosphate 40 meq/ Potassium Chloride 80 meq/ Magnesium Sulfate 12 meq/ Multivitamins 10 ml/Insulin Human Regular 40 units/ Amino Acids/ Dextrose/Purified Water 1,323.4 ml @ 55 mls/hr Q24H4M IV 02/06/24 22:00 02/07/24 21:59 objective Gen.: Patient lying in bed in medical ICU. Sedated, intubated on mechanical ventilator. Head: Normocephalic, atraumatic. Eyes: PERRLA. Ears: Normal external anatomy. Throat: Endotracheal tube and orogastric tube in place. Neck: Supple, trachea midline. Chest: Decreased air entry bilaterally. No wheezing. Bibasilar crackles. Cardiovascular: Positive S1, positive S2. Regular rate and rhythm. Abdomen: . Soft, nontender, nondistended. : Reyes in place. Normal external genitalia. Rectal: Deferred. Skin: Warm, dry. Intact. Extremities: No lower extremity edema. Neuro: Sedated. laboratory and microbiology Laboratory Tests 02/06/24 03:05 02/03/24 03:07 Test 02/06/24 03:05 Range/Units Serum Glucose 190 #H 74-106 mg/dL Assessment/Plan Patient is a 28-year-old male presented to the hospital with: # thrombocytopenia Multifocal pneumonia: [place] ARDS Acute hypoxic respiratory failure On mechanical ventilator Coag negative staphylococcus bacteremia leucocytosis Acute exacerbation of asthma Elevated Troponin Schizophrenia Autism Cannabinoid Use Morbid obesity BMI 60.5 Pulmonary edema Recommendations: reviewed cultures since admission listed below Culture History: 01/21, Blood culture showed Growth Of Coagulase Negative Staphylococcus 01/30, Urine culture: No growth monitored 01/30, Sputum culture showed Klebsiella pneumoniae MRSA screen neg 02/05 chest x-ray : Right middle lobe consolidation which may represent pneumonia and Pulmonary congestion. Obscuration of the left hemidiaphragm for which left pleural effusion is not excluded. Stable cardiomegaly. antibiotics history Vancomycin 01/22- Linezolid 01/27- 02/03 Zosyn: 01/31- 02/03 blood cx seems to look contaminations, + 1/2. discontinued Linezolid ( also platelets dropping) CXR shows multifocal infiltrate suggestive of ARDS, he is requiring high FIO2, possibly associated with pulm edema and bacterial pneumonia [place] is pansensitive, switched to cefepime. ( total duration of antibiotics 7-10 days including zosyn which was started on 01/31 pulmonary is on board, possible plan for bronchoscopy lasix prognosis is very poor. critical time 35 minutes spent. Thank you for consult and for giving an opportunity to take care of this patient. Dietary Evaluation Review Comments: Current Jevity 1.2 @60ml/hr TF is meeting pt's need for protein at 60% for energy at 117% Continue monitor nutrition progress of nutrition support to meet 75% of his needs. Advance to a cardiac diet, texture as tolerated when medically feasible. Expected Outcomes/Goals: gradual weight loss Plan discussed with: EBEN Singh MD Feb 06, 2024 19:39
--- NOTE | 2024-02-06 20:36 | DVHPN2 ---
Progress Note - Dictate Date Seen: Feb 06, 2024 Medical Necessity Reason Pt with a Central, PICC or Fol: Yes The following are medically ne: Reyes Catheter Reason for reyes catheter: Strict I&O Subjective Patient seen and examined at bedside. Sedated, intubated on mechanical ventilator. Overnight events reviewed. vital signs Vital Sign Date Time Temp Pulse Resp B/P (MAP) Pulse Ox O2 Delivery O2 Flow Rate FiO2 02/06/24 19:58 81 28 116/61 (79) 96 30 02/06/24 18:00 Mechanical Ventilator+ 02/06/24 16:12 99.2 99.2 Total Intake and Output 02/05/24 02/05/24 02/06/24 15:00 23:00 07:00 Intake Total 1062.924 ml 1047.431 ml 978.836 ml Output Total 1900 ml 1700 ml Balance 1062.924 ml -852.569 ml -721.164 ml medications Current Medications Medications Dose Ordered Sig/Reji Route Start Time Stop Time Status Last Admin Dose Admin Ondansetron HCl 4 mg Q4HP PRN IV 01/19/24 20:15 Pantoprazole Sodium 40 mg DAILY IV 01/20/24 10:00 02/06/24 09:36 40 MG Nitroglycerin 0.4 mg Q5MINP PRN SL 01/19/24 20:15 Midazolam HCl 50 ml @ 1 mls/hr Q24H IV 01/19/24 21:30 02/06/24 19:33 15 MLS/HR Aspirin 81 mg DAILY NG 01/20/24 10:00 02/06/24 09:37 81 MG Atorvastatin Calcium 40 mg HS PO 01/20/24 22:00 02/05/24 21:30 40 MG Latanoprost 1 drop QPM EACHEYE 01/20/24 18:00 02/06/24 17:58 1 DROP Patient Own Medication 400 mg MONTHLY IM 01/20/24 11:30 Lisinopril 20 mg DAILY PO 01/20/24 11:30 02/06/24 09:37 20 MG Nitroglycerin 250 ml @ 1.5 mls/hr Q24H IV 01/20/24 20:30 Albuterol 2.5 mg Q4HR NEB 01/20/24 22:00 02/06/24 18:13 2.5 MG Ipratropium [place] 0.5 mg Q4HR NEB 01/20/24 22:00 02/06/24 18:13 0.5 MG Enteral Nutritional Formula 1,000 ml 60ML/HR GT 01/22/24 14:00 02/01/24 20:06 1,000 ML Rocuronium [place] 1000 mg/ Dextrose 250 ml @ 20.832 mls/ hr Q12H1M IV 01/24/24 17:30 02/05/24 18:09 8.333 MLS/HR Vancomycin HCl 300 ml @ 200 mls/hr Q8H IV 01/28/24 02:00 Cancel Metoclopramide HCl 10 mg Q8HR IV 01/28/24 14:00 02/06/24 13:20 10 MG Docusate Sodium 100 mg BID GT 01/28/24 22:00 02/06/24 09:36 100 MG Fentanyl Citrate 250 ml @ 2.5 mls/hr Q24H IV 01/29/24 04:00 02/06/24 18:02 35 MLS/HR Hydralazine HCl 10 mg Q6HP PRN IV 01/30/24 13:15 02/05/24 02:46 10 MG Acetaminophen 650 mg Q4HP PRN PO 01/31/24 07:30 02/01/24 12:21 650 MG Quetiapine Fumarate 50 mg BID PO 01/31/24 10:00 02/06/24 13:16 50 MG Furosemide 40 mg BIDD IV 02/02/24 10:30 02/06/24 17:58 40 MG Propofol 100 ml @ 4.599 mls/ hr [id number] IV 02/02/24 22:45 02/06/24 19:33 18.396 MLS/HR Amino Acids 0 ml @ 0 mls/hr PER PHARMACY IV 02/03/24 12:15 Insulin Glargine 20 units BID@1000,2200 SC 02/04/24 10:00 02/06/24 09:44 20 UNITS Cefepime HCl 50 ml @ 12.5 mls/hr Q8HR IV 02/04/24 14:00 02/06/24 13:19 12.5 MLS/HR Sodium Chloride 60 meq/Sodium Phosphate 30 meq/ Potassium Chloride 60 meq/ Calcium Gluconate 2.3 meq/Magnesium Sulfate 8 meq/ Multivitamins 10 ml/Insulin Human Regular 35 units/ Amino Acids/ Dextrose/Purified Water 1,219.7962 ml @ 51 mls/hr [id number] IV 02/05/24 22:00 02/06/24 21:59 02/05/24 21:33 51 MLS/HR Methylprednisolone Sodium Succinate 60 mg Q8HR IV 02/05/24 14:00 02/06/24 13:20 60 MG Diagnostic Test (Pha) 1 strip Q6HR 02/05/24 18:00 02/06/24 18:04 1 STRIP Dextrose 50 ml UD PRN IV 02/05/24 13:15 Insulin Human Regular Q6HR SC 02/05/24 15:15 02/06/24 18:03 12 UNITS Sodium Chloride 40 meq/Sodium Phosphate 40 meq/ Potassium Chloride 80 meq/ Magnesium Sulfate 12 meq/ Multivitamins 10 ml/Insulin Human Regular 40 units/ Amino Acids/ Dextrose/Purified Water 1,323.4 ml @ 55 mls/hr Q24H4M IV 02/06/24 22:00 02/07/24 21:59 objective Gen.: Patient lying in bed in medical ICU. Sedated, intubated on mechanical ventilator. Head: Normocephalic, atraumatic. Eyes: PERRLA. Ears: Normal external anatomy. Throat: Endotracheal tube and orogastric tube in place. Neck: Supple, trachea midline. Chest: Transmitted breath sounds bilaterally. Decreased air entry bilaterally. No wheezing. Bibasilar crackles. Cardiovascular: Positive S1, positive S2. Regular rate and rhythm. Abdomen: Positive bowel sounds in all 4 quadrants. Soft, nontender, nondistended. : Reyes in place. Normal external genitalia. Rectal: Deferred. Skin: Warm, dry. Intact. Extremities: 2+ radial pulses bilaterally. No lower extremity edema. Neuro: Sedated. laboratory and microbiology Laboratory Tests 02/06/24 03:05 02/03/24 03:07 Test 02/06/24 03:05 Range/Units Serum Glucose 190 #H 74-106 mg/dL Assessment/Plan Impression: Acute hypoxic respiratory failure On mechanical ventilator Acute exacerbation of asthma Elevated Troponin Schizophrenia Autism Cannabinoid Use Morbid obesity BMI 60.5 Pulmonary edema Events: Remains on vent support On AC mode with RR 28, VT 500, PEEP 10, FiO2 40% PEEP decreased to 8 cmH2O Sedated on Propofol, Versed, Fentanyl Remains on Rocuronium drip for paralytic. WBC trending down Bronchoscopy w/ RML BAL was performed on 02/05/24. Cultures show few GNR - identification and susceptibility test to follow. ABG reviewed. Compensated. CXR demonstrates devices in place; Right middle lobe consolidation which may represent pneumonia. Pulmonary congestion. Obscuration of left hemidiaphragm - left pleural effusion is not excluded. Stable cardiomegaly. Seroquel 50 mg q.12 hours. Continue bronchodilators IV steroids Continue antibiotics Tube feeds for nutritional support Diurese to euvolemia - Lasix BID Monitor renal function Monitor electrolytes. Supplement as necessary. Monitor ins and outs. Taper down FiO2 as tolerated Recommend trach/PEG to liberate from vent. Labs and imaging reviewed. Rest of plan as noted below. Plan: s/p intubation on mechanical ventilator. On AC mode with RR 28, VT 500, PEEP 10 -->8, FiO2 40% Titrate FIO2 to keep O2 saturation above 90%. VAP bundle. Daily ABG and CXR while intubated Sedate for ventilator synchrony Pt does not tolerate turns. Derecruitment. Turn carefully. Elevated Troponin - Cardiology recs appreciated. Continue bronchodilators Antibiotics. F/u cultures. Pressors if necessary for hemodynamic support Titrate to keep mean arterial pressure greater than 65 mmHg. Currently off pressors, hemodynamically stable. Diurese to euvolemia Monitor renal function Monitor electrolytes. Supplement as necessary. Monitor ins and outs. Diet and lifestyle modifications for weight reduction Morbid obesity - complicates all care GI prophylaxis. DVT prophylaxis. Prognosis: Poor given patient's multiple co-morbidities. Condition: Critical Rest of plan per hospitalist and other consultants. A total of 35 minutes of critical care time was spent reviewing the patient record, examining the patient, making a diagnostic and therapeutic plan, discussing this plan with the medical personnel, following up on diagnostic studies and following the patient for clinical stability excluding any and all procedures. At least 50% of this time was spent in direct, [id number] contact. Thank you Irma Velasquez NP, for allowing me to participate in this patient's care. Further recommendations will depend on the patient's clinical course. Please do not hesitate to contact me if you have any questions or concerns. This medical document was created using an electronic medical record system with Dragon computerized dictation system. Although these documentations are being carefully reviewed, there may still be some phonetic and typographical changes. The errors are purely typographical, due to imperfection on the software program, and do not reflect any compromise in the patient's medical care. Dietary Evaluation Review Comments: Current Jevity 1.2 @60ml/hr TF is meeting pt's need for protein at 60% for energy at 117% Continue monitor nutrition progress of nutrition support to meet 75% of his needs. Advance to a cardiac diet, texture as tolerated when medically feasible. Expected Outcomes/Goals: gradual weight loss Plan discussed with: Other (SAIGE Grace) Critical Care Time(min): 35 VERÓNICA MERCER MD Feb 06, 2024 20:36
[2024-02-06] MEDS: TPN PER PHARMACY IV NR (22:00)
[2024-02-07] VITALS (114 sets, daily range): BP systolic 96–133; BP diastolic 36–80; PULSE 55–126; RESP 25–36; TEMP 97.9–99.7; O2SAT 90–100
[2024-02-07 04:06] LABS: Alkaline Phosphatase 100 U/L (46-116); Anion Gap 5 (5-15); BUN/Creatinine Ratio 48.8 (10.0-20.0); Blood Urea Nitrogen 20 mg/dL (9-23); Calcium 8.9 mg/dL (8.7-10.4); Chloride 101 mmol/L (98-107); Potassium 4.9 mmol/L (3.5-5.1); Sodium 138 mmol/L (136-145)
[2024-02-07 04:07] LABS: Albumin 3.2 g/dL (3.2-4.8); Aspartate Aminotransferase 42 U/L (13-40); Bilirubin, Total 1.8 mg/dL (0.2-1.0); Carbon Dioxide 32 mmol/L (20-31); Glucose 297 mg/dL (74-106); Total Protein 5.7 g/dL (5.7-8.2)
[2024-02-07 04:52] LABS: Alanine Aminotransferase 104 U/L (7-40)
--- NOTE | 2024-02-07 08:01 | DVHPN2 ---
Progress Note - Dictate Date Seen: Feb 07, 2024 Medical Necessity Reason Pt with a Central, PICC or Fol: Yes The following are medically ne: Reyes Catheter Reason for reyes catheter: Strict I&O Subjective Patient seen and examined at the bedside within telemetry. Chart reviewed. vital signs Vital Sign Date Time Temp Pulse Resp B/P (MAP) Pulse Ox O2 Delivery O2 Flow Rate FiO2 02/07/24 07:00 99.0 61 28 118/54 (75) 93 210.2 02/07/24 06:12 30 02/07/24 06:00 Mechanical Ventilator+ Total Intake and Output 02/06/24 02/06/24 02/07/24 14:59 22:59 06:59 Intake Total 981.963 ml 1120.728 ml 1137.161 ml Output Total 2300 ml 2300 ml Balance 981.963 ml -1179.272 ml -1162.839 ml medications Current Medications Medications Dose Ordered Sig/Reji Route Start Time Stop Time Status Last Admin Dose Admin Ondansetron HCl 4 mg Q4HP PRN IV 01/19/24 20:15 Pantoprazole Sodium 40 mg DAILY IV 01/20/24 10:00 02/06/24 09:36 40 MG Nitroglycerin 0.4 mg Q5MINP PRN SL 01/19/24 20:15 Midazolam HCl 50 ml @ 1 mls/hr Q24H IV 01/19/24 21:30 02/07/24 04:30 15 MLS/HR Aspirin 81 mg DAILY NG 01/20/24 10:00 02/06/24 09:37 81 MG Atorvastatin Calcium 40 mg HS PO 01/20/24 22:00 02/06/24 21:49 40 MG Latanoprost 1 drop QPM EACHEYE 01/20/24 18:00 02/06/24 17:58 1 DROP Patient Own Medication 400 mg MONTHLY IM 01/20/24 11:30 Lisinopril 20 mg DAILY PO 01/20/24 11:30 02/06/24 09:37 20 MG Nitroglycerin 250 ml @ 1.5 mls/hr Q24H IV 01/20/24 20:30 Albuterol 2.5 mg Q4HR NEB 01/20/24 22:00 02/07/24 06:12 2.5 MG Ipratropium [place] 0.5 mg Q4HR NEB 01/20/24 22:00 02/07/24 06:12 0.5 MG Enteral Nutritional Formula 1,000 ml 60ML/HR GT 01/22/24 14:00 02/01/24 20:06 1,000 ML Rocuronium [place] 1000 mg/ Dextrose 250 ml @ 20.832 mls/ hr Q12H1M IV 01/24/24 17:30 02/07/24 05:40 14.582 MLS/HR Vancomycin HCl 300 ml @ 200 mls/hr Q8H IV 01/28/24 02:00 Cancel Metoclopramide HCl 10 mg Q8HR IV 01/28/24 14:00 02/07/24 05:38 10 MG Docusate Sodium 100 mg BID GT 01/28/24 22:00 02/06/24 21:49 100 MG Hydralazine HCl 10 mg Q6HP PRN IV 01/30/24 13:15 02/05/24 02:46 10 MG Acetaminophen 650 mg Q4HP PRN PO 01/31/24 07:30 02/01/24 12:21 650 MG Quetiapine Fumarate 50 mg BID PO 01/31/24 10:00 02/06/24 21:49 50 MG Furosemide 40 mg BIDD IV 02/02/24 10:30 02/07/24 05:39 40 MG Propofol 100 ml @ 4.599 mls/ hr [id number] IV 02/02/24 22:45 02/07/24 05:41 18.396 MLS/HR Amino Acids 0 ml @ 0 mls/hr PER PHARMACY IV 02/03/24 12:15 Insulin Glargine 20 units BID@1000,2200 SC 02/04/24 10:00 02/06/24 21:58 20 UNITS Cefepime HCl 50 ml @ 12.5 mls/hr Q8HR IV 02/04/24 14:00 02/07/24 05:38 12.5 MLS/HR Methylprednisolone Sodium Succinate 60 mg Q8HR IV 02/05/24 14:00 02/07/24 05:38 60 MG Diagnostic Test (Pha) 1 strip Q6HR 02/05/24 18:00 02/07/24 05:40 1 STRIP Dextrose 50 ml UD PRN IV 02/05/24 13:15 Insulin Human Regular Q6HR SC 02/05/24 15:15 02/07/24 05:41 12 UNITS Sodium Chloride 40 meq/Sodium Phosphate 40 meq/ Potassium Chloride 80 meq/ Magnesium Sulfate 12 meq/ Multivitamins 10 ml/Insulin Human Regular 40 units/ Amino Acids/ Dextrose/Purified Water 1,323.4 ml @ 55 mls/hr Q24H4M IV 02/06/24 22:00 02/07/24 21:59 02/06/24 22:00 55 MLS/HR laboratory and microbiology Laboratory Tests 02/07/24 03:30 02/03/24 03:07 Test 02/07/24 03:30 Range/Units Serum Glucose 297 #H 74-106 mg/dL Assessment/Plan Assessment/Plan Patient is 28 year old morbidly obese male who presented to ED with shortness of breath. He has been intubated for respiratory failure and in on vent. support. Information was obtained by reviewing the chart and communicating with staff. Cardiology is involved for cardiac aspects of care. There is no report of chest pain prior to presentation. Reportedly, patient has been intubated for prison previously for Asthma in other institution. Intubated and on vent support. Morbidly obese. Does have right sided subclavian access. No JVD. Mucosa is pink and wet. No goiter. Scattered rhonchi is heard. Cardiac: RR, no thrill, no gallop. Abdomen is soft, obese and distended. BS is +. Ext reveal 2+ edema bilaterally. DP is 2+ bilateral PMH reportedly includes Morbid obesity, Asthma (with previous intubations), Autism, Schizophrenia and ANNETTE. Smokes Marijuana and drinks alcohol WBC: 11.6 to 11.2 to 14.2 to 12.2 to 13.3 to 16.4 to 17.5 to 15.3 to 13.8 to 15.7 to 13.8 - 22.2 to 22.3 to 16.3 to 20.1 D-dimer: 0.43 (wnl) Creat: 0.73 - 0.70 - 0.67 - 0.76 - 0.71 - 0.70 - 0.69 - 0.59 - 0.60 - 0.52 - 0.50 - 0.47 - 0.47 - 0.62 - 0.42 - 0.39 - 0.51 - 0.52 - 0.46 - 0.38 - 0.41 K: 4.1 - 4.3 - 4.1 - 4.2 - 4.0 - 4.1 - 4.1 - 3.9 - 4.0 - 3.8 - 4.3 - 4.7 - 4.4 - 4.4 - 4.3 - 4.3 - 4.1 - 3.6 - 4.9 BNP: 561.97 - 173.31 Trop (high sensitive): 61 - 62 - 131 - 132 - 91 - 82 TSH: 0.48 Urine toxicology was positive for Cannabinoids and Benzodiazpin Chest xry revealed: FINDINGS: Lines and Tubes: None Lungs: Obscuration of the left hemidiaphragm Diffuse interstitial prominence. No pneumothorax. Cardiomediastinal contours: Moderate cardiomegaly Bones: No acute osseous abnormality. IMPRESSION: Moderate cardiomegaly with findings suggestive of congestive heart failure. Possible left-sided pleural effusion. Repeat chest xry revealed: Endotracheal tube projects terminating 1.8 cm superior to the zbigniew. Enteric tube is projecting below the GE junction without visualization of the port or tip. Low lung volumes with bronchovascular crowding. Possible small left-sided pleural effusion and/or atelectasis. No pneumothorax. Repeat chest xry revealed: Cardiomediastinal silhouette is enlarged. There is increased pulmonary vascular congestion, similar prior examination. Obscuration of the left hemidiaphragm may be on the basis of technique versus small pleural effusion. No discrete pneumothorax. Endotracheal tube and enteric tube are redemonstrated. Left IJ catheter tip is likely at the region of the brachiocephalic vein. Repeat chest xry revealed: FINDINGS: Cardiomediastinal silhouette is enlarged. There is increased pulmonary vascular congestion, similar prior examination. Obscuration of the left hemidiaphragm may be on the basis of technique versus small pleural effusion. No discrete pneumothorax. Endotracheal tube and enteric tube are redemonstrated. Left IJ catheter tip is likely at the region of the brachiocephalic vein. IMPRESSION: NO INTERVAL CHANGE. Repeat chest xry revealed: IMPRESSION: Improving pulmonary edema compared to prior exam. Repeat chest xry revealed: IMPRESSION: stable pulmonary edema compared to prior exam. Repeat chest xry revealed: IMPRESSION: Lines and tubes in satisfactory position. No significant interval change. Repeat chest xry revealed: IMPRESSION: Lines and tubes in satisfactory position. No significant interval change. Repeat chest xry revealed: IMPRESSION: Lines and tubes in satisfactory position. No significant interval change. Repeat chest xry: IMPRESSION: 1. Stable position of the support lines and tubes. 2. No significant change in diffuse bilateral airspace opacities. Repeat chest xry revealed: IMPRESSION: 1. Endotracheal tube terminates 6.4 symbol the zbigniew. 2. Bilateral airspace disease unchanged. Repeat chest xry revealed: IMPRESSION: 1. Endotracheal tube 4.1 cm above the zbigniew. 2. OG tube not visualized AND may BE IN THE RIGHT MAINSTEM BRONCHUS RECOMMEND REMOVAL AND REPOSITIONING WITH REPEAT CHEST X-RAY. Repeat chest xry revealed: FINDINGS: Endotracheal tube in place 4.4 cm above the zbigniew. Left internal jugular catheter in place in the superior vena cava. Cardiomegaly is noted with pulmonary vascular congestion findings may represent congestive failure other possibility such as pneumonia are in the differential. IMPRESSION: 1. Cardiomegaly with findings of pulmonary vascular congestion. Findings may represent congestive failure or pneumonia. Repeat chest xry revealed: Lines and Tubes: The endotracheal tube terminates 3.1 cm above the zbigniew. Left central venous catheter terminates in the superior vena cava. Enteric tube is visualized to the mid chest but not visualized below the left hemidiaphragm. Lungs: Bilateral airspace disease. Pleura: No effusion. No pneumothorax. Cardiomediastinal contours: Stable cardiomegaly. Bones: No acute osseous abnormality. IMPRESSION: 1. Enteric tube not visualized below the left hemidiaphragm. 2. Bilateral airspace disease similar to prior exam. Repeat chest xry revealed: Limited evaluation given patient positioning. The heart appears markedly enlarged. There are low lung volumes with moderate alveolar airspace opacities suggesting pulmonary edema. No discrete pneumothorax. Endotracheal tube appear stable. Enteric tube is not well visualized. Repeat chest xry revealed: IMPRESSION: 1. Stable appearance of the support lines and tubes. 2. Pulmonary opacities, unchanged. Repeat chest xry revealed: Evaluation limited by patient body habitus. Lines and Tubes: The endotracheal tube terminates 5.7 cm above the zbigniew. Left central venous catheter is unchanged in position. Enteric tube courses below the left hemidiaphragm and outside the field of view. Lungs: Bilateral airspace disease similar to prior study. Pleura: Possible bilateral pleural effusions. No pneumothorax. Cardiomediastinal contours: Stable. Bones: No acute osseous abnormality. IMPRESSION: 1. No significant interval change. Repeat chest xry revealed: IMPRESSION: Right lower lobe pneumonia. Repeat chest xry revealed: IMPRESSION: 1. Right middle lobe consolidation which may represent pneumonia. 2. Pulmonary congestion. 3. Obscuration of the left hemidiaphragm for which left pleural effusion is not excluded. 4. Stable cardiomegaly. KUB revealed: Impression: 1. Nonobstructive bowel gas pattern. 2. Enteric tube overlying the plane of the stomach. 3. No visualized renal calculi. Venous duplex of lower ext revealed: Impression: 1. No right or left femoropopliteal venous thrombosis. 2. Left common femoral vein and proximal superficial femoral vein are not visible and therefore thrombus can not be excluded in those areas. EKG revealed: Sinus tachycardia with non-specific STT changes Tele reveals Sinus rhythm Echocardiogram revealed: Technically limited study secondary to poor acoustic windows. Left ventricle: Left ventricle was normal-sized with normal systolic function. LVEF was 60-65%. There was no gross wall motion abnormality observed. Right ventricle was not well visualized but it was dilated. Left atrium was normal-sized. Right atrium was not well visualized. Aortic valve was trileaflet and normal. There was no aortic insufficiency/stenosis. There was trivial mitral and tricuspid regurgitation. There was mild pulmonary valve insufficiency. As there was no good tricuspid regurgitation jet, right ventricular systolic pressure could not be estimated. There was no pericardial effusion. Patient is 28 year old male with history of morbid obesity who presented with respiratory failure. Does have history of Asthma and reportedly has been intubated for it before. Trop has been mildly elevated. ACS is less likely and increase in troponin most likely represents demand physiology. Still, component of type 1 physiology cannot be completely ruled out. Echo revealed dilated RV. As there was no good TR jet, RVSP could not be estimated. Pulmonary Hypertension cannot be ruled out. Pulmonary on board. On sedation. ID on board Acute respiratory failure Asthma Asthma exacerbation Morbid obesity Abnormal trop Questionable heart failure, acute Pneumonia s/p bronchoscopy Cardiac suggestion for management: Manage in ICU IV diuresis Follow up electrolytes and kidney function test and correct abnormalities. Keep potassium above 4 and magnesium above 2 Lovenox ASA Follow up vital signs and correct hyper/hypotension. If needed add pressure support to keep MAP above 65 mmHg Pulmonary follow up Further evaluation and management depends on the above and clinical course A total of 75 minutes was spent reviewing the patient record, examining the patient, making a diagnostic and therapeutic plan, discussing this plan with medical personnel, following up on diagnostic studies and following the patient for clinical stability excluding any and all procedures. At least 50% of this time was spent in direct, [id number] contact. Thank you for allowing me to participate in this patient's care. Further recommendations will depend on patient's clinical course. Please do not hesitate to contact me if you have any questions or concerns. This medical document was created using electronic medical record system with [employer] computerized dictation system. Although this document has been carefully reviewed, there may still be some phonetic and typographical errors. These areas are purely typographical due to the imperfection of the software programs, and do not reflect any compromise in the patient's medical care. Dietary Evaluation Review Comments: Current Jevity 1.2 @60ml/hr TF is meeting pt's need for protein at 60% for energy at 117% Continue monitor nutrition progress of nutrition support to meet 75% of his needs. Advance to a cardiac diet, texture as tolerated when medically feasible. Expected Outcomes/Goals: gradual weight loss Plan discussed with: Other (Primary RN ) RAEGAN CAMILO Feb 07, 2024 08:01
[2024-02-07] MEDS: fentaNYL Drip 2500mCg/250mlNS 250 ML IV SCH (08:15)
[2024-02-07] MEDS: fentaNYL Drip 2500mCg/250mlNS 250 ML IV ONE (08:26)
[2024-02-07 08:45] LABS: Basophils # (auto) 0 10 ^3/uL (0-0.2); Eosinophils # (auto) 0 10 ^3/uL (0-0.8); Monocytes # (auto) 0.5 10 ^3/uL (0-1.3); Neutrophils # (auto) 19.3 10 ^3/uL (1.6-8.6); Platelet Count (auto) 111 10^3/uL (140-450)
[2024-02-07 08:46] LABS: Basophils % (auto) 0.1 % (0.0-2.0); Hematocrit 37.8 % (41.0-53.0); Hemoglobin 11.6 g/dL (13.5-17.5); Lymphocytes # (auto) 0.3 10 ^3/uL (0.4-5.4); Lymphocytes % (auto) 1.6 % (10.0-50.0); Mean Corpuscular Hemoglobin 22.2 pg (28.0-32.0); Mean Corpuscular Hgb Conc. 30.7 g/dL (32.0-36.0); Mean Corpuscular Volume 72.3 fL (80.0-100.0); Monocytes % (auto) 2.5 % (0.0-12.0); Neutrophils % (auto) 95.8 % (37.0-80.0); Red Blood Cells 5.23 10^6/uL (4.5-5.90); Red Cell Distribution Width 18.5 % (11.8-14.3); White Blood Cell 20.1 10^3/uL (4.4-10.8)
--- NOTE | 2024-02-07 09:52 | DVHPN2 ---
Progress Note - Dictate Date Seen: Feb 07, 2024 Medical Necessity Reason Pt with a Central, PICC or Fol: Yes The following are medically ne: Reyes Catheter Reason for reyes catheter: Strict I&O vital signs Vital Sign Date Time Temp Pulse Resp B/P (MAP) Pulse Ox O2 Delivery O2 Flow Rate FiO2 02/07/24 08:26 121/51 02/07/24 08:00 30 02/07/24 08:00 59 28 93 Mechanical Ventilator+ 02/07/24 07:00 99.0 210.2 Total Intake and Output 02/06/24 02/06/24 02/07/24 15:00 23:00 07:00 Intake Total 1028.272 ml 1129.415 ml 1110.494 ml Output Total 2300 ml 2300 ml Balance 1028.272 ml -1170.585 ml -1189.506 ml medications Current Medications Medications Dose Ordered Sig/Reji Route Start Time Stop Time Status Last Admin Dose Admin Ondansetron HCl 4 mg Q4HP PRN IV 01/19/24 20:15 Pantoprazole Sodium 40 mg DAILY IV 01/20/24 10:00 02/06/24 09:36 40 MG Nitroglycerin 0.4 mg Q5MINP PRN SL 01/19/24 20:15 Midazolam HCl 50 ml @ 1 mls/hr Q24H IV 01/19/24 21:30 02/07/24 08:45 15 MLS/HR Aspirin 81 mg DAILY NG 01/20/24 10:00 02/06/24 09:37 81 MG Atorvastatin Calcium 40 mg HS PO 01/20/24 22:00 02/06/24 21:49 40 MG Latanoprost 1 drop QPM EACHEYE 01/20/24 18:00 02/06/24 17:58 1 DROP Patient Own Medication 400 mg MONTHLY IM 01/20/24 11:30 Lisinopril 20 mg DAILY PO 01/20/24 11:30 02/06/24 09:37 20 MG Nitroglycerin 250 ml @ 1.5 mls/hr Q24H IV 01/20/24 20:30 Albuterol 2.5 mg Q4HR NEB 01/20/24 22:00 02/07/24 06:12 2.5 MG Ipratropium [place] 0.5 mg Q4HR NEB 01/20/24 22:00 02/07/24 06:12 0.5 MG Enteral Nutritional Formula 1,000 ml 60ML/HR GT 01/22/24 14:00 02/01/24 20:06 1,000 ML Rocuronium [place] 1000 mg/ Dextrose 250 ml @ 20.832 mls/ hr Q12H1M IV 01/24/24 17:30 02/07/24 05:40 14.582 MLS/HR Vancomycin HCl 300 ml @ 200 mls/hr Q8H IV 01/28/24 02:00 Cancel Metoclopramide HCl 10 mg Q8HR IV 01/28/24 14:00 02/07/24 05:38 10 MG Docusate Sodium 100 mg BID GT 01/28/24 22:00 02/06/24 21:49 100 MG Hydralazine HCl 10 mg Q6HP PRN IV 01/30/24 13:15 02/05/24 02:46 10 MG Acetaminophen 650 mg Q4HP PRN PO 01/31/24 07:30 02/01/24 12:21 650 MG Quetiapine Fumarate 50 mg BID PO 01/31/24 10:00 02/06/24 21:49 50 MG Furosemide 40 mg BIDD IV 02/02/24 10:30 02/07/24 05:39 40 MG Propofol 100 ml @ 4.599 mls/ hr [id number] IV 02/02/24 22:45 02/07/24 05:41 18.396 MLS/HR Amino Acids 0 ml @ 0 mls/hr PER PHARMACY IV 02/03/24 12:15 Insulin Glargine 20 units BID@1000,2200 SC 02/04/24 10:00 02/06/24 21:58 20 UNITS Cefepime HCl 50 ml @ 12.5 mls/hr Q8HR IV 02/04/24 14:00 02/07/24 05:38 12.5 MLS/HR Methylprednisolone Sodium Succinate 60 mg Q8HR IV 02/05/24 14:00 02/07/24 05:38 60 MG Diagnostic Test (Pha) 1 strip Q6HR 02/05/24 18:00 02/07/24 05:40 1 STRIP Dextrose 50 ml UD PRN IV 02/05/24 13:15 Insulin Human Regular Q6HR SC 02/05/24 15:15 02/07/24 05:41 12 UNITS Sodium Chloride 40 meq/Sodium Phosphate 40 meq/ Potassium Chloride 80 meq/ Magnesium Sulfate 12 meq/ Multivitamins 10 ml/Insulin Human Regular 40 units/ Amino Acids/ Dextrose/Purified Water 1,323.4 ml @ 55 mls/hr Q24H4M IV 02/06/24 22:00 02/07/24 21:59 02/06/24 22:00 55 MLS/HR Fentanyl Citrate 250 ml @ 2.5 mls/hr Q24H IV 02/07/24 08:15 objective General Appearance: alert, no distress HEENT: EOMI, PERRLA, normal external inspect of ears, no icterus, no nasal drainage Neck: no carotid bruit, no jugular venous distention (JVD), no lymphadenopathy Chest: normal thorax Respiratory: clear to auscultation Cardiovascular: regular rate and rhythm, no diastolic murmur, no jugular venous distention (JVD), no rub, no systolic murmur Abdominal: soft, no hepatomegaly, no mass, no splenomegaly, no tenderness Genitourinary: grossly normal external Musculoskeletal: no joint tenderness, no swelling Extremities: normal pulses, no calf tenderness, no clubbing, no cyanosis, no edema Skin: no bruising, no jaundice, no rash Neurological: alert, No focal deficit laboratory and microbiology Laboratory Tests 02/07/24 08:04 02/07/24 03:30 Test 02/07/24 03:30 Range/Units Serum Glucose 297 #H 74-106 mg/dL Problem List 1. Asthma with acute exacerbation Pulmonary consult, monitoring 2. Acute hypoxic respiratory failure requiring intubation Pulmonary Consult 3. Schizophrenia Monitoring 4. Autism Medication, monitoring 5. Elevated Troponin Cardiology Consult, monitoring 6. Cannabis Use Education Assessment/Plan Subjective Patient remains sedated and on a paralytic. Objective Patient is status post intubation on January 19, 2024. Patient was on a ventilator for 19 days. Patient is status post bronchoscopy. Patient is now on 40% FiO2. I did discuss plan of care with pulmonary. Patient has not been able to have sedation weaned off and to proceed with CPAP due to patient's severe anxiety. Patient with a history of autism and schizophrenia. Patient was intubated for acute asthma exacerbation and with likely underlying pneumonia. Plan Continue current treatment. L TACH evaluation in progress. Possible plan to wean sedation per pulmonary. Dietary Evaluation Review Comments: Current Jevity 1.2 @60ml/hr TF is meeting pt's need for protein at 60% for energy at 117% Continue monitor nutrition progress of nutrition support to meet 75% of his needs. Advance to a cardiac diet, texture as tolerated when medically feasible. Expected Outcomes/Goals: gradual weight loss Plan discussed with: Patient, Other VIK COBOS NP Feb 07, 2024 09:52
--- NOTE | 2024-02-07 20:14 | DVHPN2 ---
Progress Note - Dictate Date Seen: Feb 07, 2024 Medical Necessity Reason Pt with a Central, PICC or Fol: Yes The following are medically ne: Reyes Catheter Reason for reyes catheter: Strict I&O Subjective Patient remains intubated. No new acute complaints noted at this time. WBC trending down fio2 30% Patient has not been able to have sedation weaned off and to proceed with CPAP due to patient's severe anxiety. vital signs Vital Sign Date Time Temp Pulse Resp B/P (MAP) Pulse Ox O2 Delivery O2 Flow Rate FiO2 02/07/24 18:28 99.0 67 28 121/63 (82) 94 210.2 02/07/24 18:00 Mechanical Ventilator+ 30 30 Total Intake and Output 02/06/24 02/06/24 02/07/24 15:00 23:00 07:00 Intake Total 1028.272 ml 1129.415 ml 1110.494 ml Output Total 2300 ml 2300 ml Balance 1028.272 ml -1170.585 ml -1189.506 ml medications Current Medications Medications Dose Ordered Sig/Reji Route Start Time Stop Time Status Last Admin Dose Admin Ondansetron HCl 4 mg Q4HP PRN IV 01/19/24 20:15 Pantoprazole Sodium 40 mg DAILY IV 01/20/24 10:00 02/07/24 10:51 40 MG Nitroglycerin 0.4 mg Q5MINP PRN SL 01/19/24 20:15 Midazolam HCl 50 ml @ 1 mls/hr Q24H IV 01/19/24 21:30 02/07/24 17:12 15 MLS/HR Aspirin 81 mg DAILY NG 01/20/24 10:00 02/07/24 10:50 81 MG Atorvastatin Calcium 40 mg HS PO 01/20/24 22:00 02/06/24 21:49 40 MG Latanoprost 1 drop QPM EACHEYE 01/20/24 18:00 02/07/24 17:13 1 DROP Patient Own Medication 400 mg MONTHLY IM 01/20/24 11:30 Lisinopril 20 mg DAILY PO 01/20/24 11:30 02/07/24 10:50 20 MG Nitroglycerin 250 ml @ 1.5 mls/hr Q24H IV 01/20/24 20:30 Albuterol 2.5 mg Q4HR NEB 01/20/24 22:00 02/07/24 17:53 2.5 MG Ipratropium [place] 0.5 mg Q4HR NEB 01/20/24 22:00 02/07/24 17:53 0.5 MG Enteral Nutritional Formula 1,000 ml 60ML/HR GT 01/22/24 14:00 02/01/24 20:06 1,000 ML Rocuronium [place] 1000 mg/ Dextrose 250 ml @ 20.832 mls/ hr Q12H1M IV 01/24/24 17:30 02/07/24 05:40 14.582 MLS/HR Vancomycin HCl 300 ml @ 200 mls/hr Q8H IV 01/28/24 02:00 Cancel Metoclopramide HCl 10 mg Q8HR IV 01/28/24 14:00 02/07/24 14:50 10 MG Docusate Sodium 100 mg BID GT 01/28/24 22:00 02/07/24 10:47 100 MG Hydralazine HCl 10 mg Q6HP PRN IV 01/30/24 13:15 02/05/24 02:46 10 MG Acetaminophen 650 mg Q4HP PRN PO 01/31/24 07:30 02/01/24 12:21 650 MG Furosemide 40 mg BIDD IV 02/02/24 10:30 02/07/24 17:13 40 MG Propofol 100 ml @ 4.599 mls/ hr [id number] IV 02/02/24 22:45 02/07/24 17:12 36.792 MLS/HR Amino Acids 0 ml @ 0 mls/hr PER PHARMACY IV 02/03/24 12:15 Insulin Glargine 20 units BID@1000,2200 SC 02/04/24 10:00 02/07/24 10:57 20 UNITS Cefepime HCl 50 ml @ 12.5 mls/hr Q8HR IV 02/04/24 14:00 02/07/24 14:49 12.5 MLS/HR Diagnostic Test (Pha) 1 strip Q6HR 02/05/24 18:00 02/07/24 17:13 1 STRIP Dextrose 50 ml UD PRN IV 02/05/24 13:15 Insulin Human Regular Q6HR SC 02/05/24 15:15 02/07/24 17:14 16 UNITS Sodium Chloride 40 meq/Sodium Phosphate 40 meq/ Potassium Chloride 80 meq/ Magnesium Sulfate 12 meq/ Multivitamins 10 ml/Insulin Human Regular 40 units/ Amino Acids/ Dextrose/Purified Water 1,323.4 ml @ 55 mls/hr Q24H4M IV 02/06/24 22:00 02/07/24 21:59 02/06/24 22:00 55 MLS/HR Fentanyl Citrate 250 ml @ 2.5 mls/hr Q24H IV 02/07/24 08:15 02/07/24 14:52 35 MLS/HR Sodium Chloride 50 meq/Sodium Phosphate 40 meq/ Potassium Chloride 60 meq/ Magnesium Sulfate 14 meq/ Multivitamins 10 ml/Insulin Human Regular 40 units/ Amino Acids/ Dextrose/Purified Water 1,366.4 ml @ 57 mls/hr [id number] IV 02/07/24 22:00 02/08/24 21:59 Methylprednisolone Sodium Succinate 40 mg Q8HR IV 02/07/24 22:00 Quetiapine Fumarate 100 mg BID PO 02/07/24 22:00 objective Gen.: Patient lying in bed in medical ICU. Sedated, intubated on mechanical ventilator. Head: Normocephalic, atraumatic. Eyes: PERRLA. Ears: Normal external anatomy. Throat: Endotracheal tube and orogastric tube in place. Neck: Supple, trachea midline. Chest: Decreased air entry bilaterally. No wheezing. Bibasilar crackles. Cardiovascular: Positive S1, positive S2. Regular rate and rhythm. Abdomen: . Soft, nontender, nondistended. : Reyes in place. Normal external genitalia. Rectal: Deferred. Skin: Warm, dry. Intact. Extremities: No lower extremity edema. Neuro: Sedated. laboratory and microbiology Laboratory Tests 02/07/24 08:04 02/07/24 03:30 Test 02/07/24 03:30 Range/Units Serum Glucose 297 #H 74-106 mg/dL Assessment/Plan Patient is a 28-year-old male presented to the hospital with: # thrombocytopenia Multifocal pneumonia: [place] ARDS Acute hypoxic respiratory failure On mechanical ventilator Coag negative staphylococcus bacteremia leucocytosis Acute exacerbation of asthma Elevated Troponin Schizophrenia Autism Cannabinoid Use Morbid obesity BMI 60.5 Pulmonary edema Recommendations: reviewed cultures since admission listed below Culture History: 01/21, Blood culture showed Growth Of Coagulase Negative Staphylococcus 01/30, Urine culture: No growth monitored 01/30, Sputum culture showed Klebsiella pneumoniae MRSA screen neg 02/05 chest x-ray : Right middle lobe consolidation which may represent pneumonia and Pulmonary congestion. Obscuration of the left hemidiaphragm for which left pleural effusion is not excluded. Stable cardiomegaly. antibiotics history Vancomycin 01/22- Linezolid 01/27- 02/03 Zosyn: 01/31- 02/03 blood cx seems to look contaminations, + 1/2. discontinued Linezolid ( also platelets dropping): monitor CXR shows multifocal infiltrate suggestive of ARDS, he is requiring high FIO2, possibly associated with pulm edema and bacterial pneumonia [place] is pansensitive, switched to cefepime; continue. ( total duration of antibiotics 7-10 days including zosyn which was started on 01/31; stop date 02/08 pulmonary is on board, possible plan for bronchoscopy lasix prognosis is very poor. critical time 35 minutes spent. Thank you for consult and for giving an opportunity to take care of this patient. Dietary Evaluation Review Comments: Current Jevity 1.2 @60ml/hr TF is meeting pt's need for protein at 60% for energy at 117% Continue monitor nutrition progress of nutrition support to meet 75% of his needs. Advance to a cardiac diet, texture as tolerated when medically feasible. Expected Outcomes/Goals: gradual weight loss Plan discussed with: EBEN Singh MD Feb 07, 2024 20:14
[2024-02-07] MEDS: QUEtiapine FUMARATE 100 MG TAB PO SCH (21:48)
[2024-02-07] MEDS: methylPREDNISolone SOD SUCC 40 MG/ML VL IV SCH (21:48)
[2024-02-07] MEDS: TPN PER PHARMACY IV NR (21:52)
--- NOTE | 2024-02-07 23:00 | DVHPN2 ---
Progress Note - Dictate Date Seen: Feb 07, 2024 Medical Necessity Reason Pt with a Central, PICC or Fol: Yes The following are medically ne: Reyes Catheter Reason for reyes catheter: Strict I&O Subjective Patient seen and examined at bedside. Sedated, intubated on mechanical ventilator. Overnight events reviewed. vital signs Vital Sign Date Time Temp Pulse Resp B/P (MAP) Pulse Ox O2 Delivery O2 Flow Rate FiO2 02/07/24 22:05 115/53 02/07/24 22:00 64 28 97 30 02/07/24 18:28 99.0 210.2 02/07/24 18:00 Mechanical Ventilator+ Total Intake and Output 02/06/24 02/06/24 02/07/24 15:00 23:00 07:00 Intake Total 1028.272 ml 1129.415 ml 1110.494 ml Output Total 2300 ml 2300 ml Balance 1028.272 ml -1170.585 ml -1189.506 ml medications Current Medications Medications Dose Ordered Sig/Reji Route Start Time Stop Time Status Last Admin Dose Admin Ondansetron HCl 4 mg Q4HP PRN IV 01/19/24 20:15 Pantoprazole Sodium 40 mg DAILY IV 01/20/24 10:00 02/07/24 10:51 40 MG Nitroglycerin 0.4 mg Q5MINP PRN SL 01/19/24 20:15 Midazolam HCl 50 ml @ 1 mls/hr Q24H IV 01/19/24 21:30 02/07/24 20:13 15 MLS/HR Aspirin 81 mg DAILY NG 01/20/24 10:00 02/07/24 10:50 81 MG Atorvastatin Calcium 40 mg HS PO 01/20/24 22:00 02/07/24 21:48 40 MG Latanoprost 1 drop QPM EACHEYE 01/20/24 18:00 02/07/24 17:13 1 DROP Patient Own Medication 400 mg MONTHLY IM 01/20/24 11:30 Lisinopril 20 mg DAILY PO 01/20/24 11:30 02/07/24 10:50 20 MG Nitroglycerin 250 ml @ 1.5 mls/hr Q24H IV 01/20/24 20:30 Albuterol 2.5 mg Q4HR NEB 01/20/24 22:00 02/07/24 22:08 2.5 MG Ipratropium [place] 0.5 mg Q4HR NEB 01/20/24 22:00 02/07/24 22:08 0.5 MG Enteral Nutritional Formula 1,000 ml 60ML/HR GT 01/22/24 14:00 02/01/24 20:06 1,000 ML Rocuronium [place] 1000 mg/ Dextrose 250 ml @ 20.832 mls/ hr Q12H1M IV 01/24/24 17:30 02/07/24 05:40 14.582 MLS/HR Vancomycin HCl 300 ml @ 200 mls/hr Q8H IV 01/28/24 02:00 Cancel Metoclopramide HCl 10 mg Q8HR IV 01/28/24 14:00 02/07/24 21:48 10 MG Docusate Sodium 100 mg BID GT 01/28/24 22:00 02/07/24 21:48 100 MG Hydralazine HCl 10 mg Q6HP PRN IV 01/30/24 13:15 02/05/24 02:46 10 MG Acetaminophen 650 mg Q4HP PRN PO 01/31/24 07:30 02/01/24 12:21 650 MG Furosemide 40 mg BIDD IV 02/02/24 10:30 02/07/24 17:13 40 MG Propofol 100 ml @ 4.599 mls/ hr [id number] IV 02/02/24 22:45 02/07/24 22:05 36.792 MLS/HR Amino Acids 0 ml @ 0 mls/hr PER PHARMACY IV 02/03/24 12:15 Insulin Glargine 20 units BID@1000,2200 SC 02/04/24 10:00 02/07/24 21:50 20 UNITS Cefepime HCl 50 ml @ 12.5 mls/hr Q8HR IV 02/04/24 14:00 02/07/24 21:49 12.5 MLS/HR Diagnostic Test (Pha) 1 strip Q6HR 02/05/24 18:00 02/07/24 17:13 1 STRIP Dextrose 50 ml UD PRN IV 02/05/24 13:15 Insulin Human Regular Q6HR SC 02/05/24 15:15 02/07/24 17:14 16 UNITS Fentanyl Citrate 250 ml @ 2.5 mls/hr Q24H IV 02/07/24 08:15 02/07/24 21:51 35 MLS/HR Sodium Chloride 50 meq/Sodium Phosphate 40 meq/ Potassium Chloride 60 meq/ Magnesium Sulfate 14 meq/ Multivitamins 10 ml/Insulin Human Regular 40 units/ Amino Acids/ Dextrose/Purified Water 1,366.4 ml @ 57 mls/hr [id number] IV 02/07/24 22:00 02/08/24 21:59 02/07/24 21:52 57 MLS/HR Methylprednisolone Sodium Succinate 40 mg Q8HR IV 02/07/24 22:00 02/07/24 21:48 40 MG Quetiapine Fumarate 100 mg BID PO 02/07/24 22:00 02/07/24 21:48 100 MG objective Gen.: Patient lying in bed in medical ICU. Sedated, intubated on mechanical ventilator. Head: Normocephalic, atraumatic. Eyes: PERRLA. Ears: Normal external anatomy. Throat: Endotracheal tube and orogastric tube in place. Neck: Supple, trachea midline. Chest: Transmitted breath sounds bilaterally. Decreased air entry bilaterally. No wheezing. Bibasilar crackles. Cardiovascular: Positive S1, positive S2. Regular rate and rhythm. Abdomen: Positive bowel sounds in all 4 quadrants. Soft, nontender, nondistended. : Reyes in place. Normal external genitalia. Rectal: Deferred. Skin: Warm, dry. Intact. Extremities: 2+ radial pulses bilaterally. No lower extremity edema. Neuro: Sedated. laboratory and microbiology Laboratory Tests 02/07/24 08:04 02/07/24 03:30 Test 02/07/24 03:30 Range/Units Serum Glucose 297 #H 74-106 mg/dL Assessment/Plan Impression: Acute hypoxic respiratory failure On mechanical ventilator Acute exacerbation of asthma Elevated Troponin Schizophrenia Autism Cannabinoid Use Morbid obesity BMI 60.5 Pulmonary edema Events: Remains on vent support On AC mode with RR 28, VT 500, PEEP 8, FiO2 30% Sedated on Propofol, Versed, Fentanyl Remains on Rocuronium drip for paralytic. Leukocytosis - WBC 20.1 K Bronchoscopy w/ RML BAL was performed on 02/05/24. Cultures grew Klebsiella pneumoniae. ABG reviewed. Compensated. CXR demonstrates devices in place; Pulmonary vascular congestion. Increase Seroquel dose to 100 mg q.12 hours. Continue bronchodilators IV steroids - tapered dose Continue antibiotics - on cefepime TPN for nutritional support Diurese to euvolemia - Lasix BID Monitor renal function Monitor electrolytes. Supplement as necessary. Monitor ins and outs. Patient has not tolerated decrease in paralytic drip. Remains on sedation. Taper down FiO2 as tolerated Recommend trach/PEG to liberate from vent. Labs and imaging reviewed. Rest of plan as noted below. Plan: s/p intubation on mechanical ventilator. On AC mode with RR 28, VT 500, PEEP 8, FiO2 30% Titrate FIO2 to keep O2 saturation above 90%. VAP bundle. Daily ABG and CXR while intubated Sedate for ventilator synchrony Pt does not tolerate turns. Derecruitment. Turn carefully. Elevated Troponin - Cardiology recs appreciated. Continue bronchodilators Antibiotics. F/u cultures. Pressors if necessary for hemodynamic support Titrate to keep mean arterial pressure greater than 65 mmHg. Currently off pressors, hemodynamically stable. Diurese to euvolemia Monitor renal function Monitor electrolytes. Supplement as necessary. Monitor ins and outs. Diet and lifestyle modifications for weight reduction Morbid obesity - complicates all care GI prophylaxis. DVT prophylaxis. Prognosis: Poor given patient's multiple co-morbidities. Condition: Critical Rest of plan per hospitalist and other consultants. A total of 35 minutes of critical care time was spent reviewing the patient record, examining the patient, making a diagnostic and therapeutic plan, discussing this plan with the medical personnel, following up on diagnostic studies and following the patient for clinical stability excluding any and all procedures. At least 50% of this time was spent in direct, [id number] contact. Thank you Irma Velsaquez NP, for allowing me to participate in this patient's care. Further recommendations will depend on the patient's clinical course. Please do not hesitate to contact me if you have any questions or concerns. This medical document was created using an electronic medical record system with [employer] dictation system. Although these documentations are being carefully reviewed, there may still be some phonetic and typographical changes. The errors are purely typographical, due to imperfection on the software program, and do not reflect any compromise in the patient's medical care. Dietary Evaluation Review Comments: Current Jevity 1.2 @60ml/hr TF is meeting pt's need for protein at 60% for energy at 117% Continue monitor nutrition progress of nutrition support to meet 75% of his needs. Advance to a cardiac diet, texture as tolerated when medically feasible. Expected Outcomes/Goals: gradual weight loss Plan discussed with: Other (SAIGE Grace) Critical Care Time(min): 35 VERÓNICA MERCER MD Feb 07, 2024 23:00
[2024-02-08] VITALS (122 sets, daily range): BP systolic 100–147; BP diastolic 38–73; PULSE 44–102; RESP 27–31; TEMP 97.7–99.7; O2SAT 91–100
[2024-02-08 04:24] LABS: Albumin 3.3 g/dL (3.2-4.8); Alkaline Phosphatase 100 U/L (46-116); Anion Gap 5 (5-15); Aspartate Aminotransferase 26 U/L (13-40); BUN/Creatinine Ratio 46.5 (10.0-20.0); Blood Urea Nitrogen 20 mg/dL (9-23); Carbon Dioxide 31 mmol/L (20-31); Chloride 101 mmol/L (98-107); Potassium 4.6 mmol/L (3.5-5.1); Sodium 137 mmol/L (136-145)
[2024-02-08 04:25] LABS: Phosphorus 3.1 mg/dL (2.4-5.1); Total Protein 5.8 g/dL (5.7-8.2)
[2024-02-08 04:31] LABS: Alanine Aminotransferase 96 U/L (7-40); Bilirubin, Total 1.8 mg/dL (0.2-1.0); Glucose 362 mg/dL (74-106)
--- NOTE | 2024-02-08 05:01 | DVHPN2 ---
Progress Note - Dictate Date Seen: Feb 08, 2024 Medical Necessity Reason Pt with a Central, PICC or Fol: Yes The following are medically ne: Reyes Catheter Reason for reyes catheter: Strict I&O Subjective Patient seen and examined at the bedside within the ICU. Chart reviewed. vital signs Vital Sign Date Time Temp Pulse Resp B/P (MAP) Pulse Ox O2 Delivery O2 Flow Rate FiO2 02/08/24 04:43 98.4 64 28 122/60 (80) 97 209.1 02/08/24 04:03 30 02/08/24 00:00 Mechanical Ventilator+ Total Intake and Output 02/07/24 02/07/24 02/08/24 15:00 23:00 07:00 Intake Total 1200.972 ml 1396.662 ml 177.124 ml Output Total 4100 ml 1400 ml Balance 1200.972 ml -2703.338 ml -1222.876 ml medications Current Medications Medications Dose Ordered Sig/Reji Route Start Time Stop Time Status Last Admin Dose Admin Ondansetron HCl 4 mg Q4HP PRN IV 01/19/24 20:15 Pantoprazole Sodium 40 mg DAILY IV 01/20/24 10:00 02/07/24 10:51 40 MG Nitroglycerin 0.4 mg Q5MINP PRN SL 01/19/24 20:15 Midazolam HCl 50 ml @ 1 mls/hr Q24H IV 01/19/24 21:30 02/08/24 02:20 15 MLS/HR Aspirin 81 mg DAILY NG 01/20/24 10:00 02/07/24 10:50 81 MG Atorvastatin Calcium 40 mg HS PO 01/20/24 22:00 02/07/24 21:48 40 MG Latanoprost 1 drop QPM EACHEYE 01/20/24 18:00 02/07/24 17:13 1 DROP Patient Own Medication 400 mg MONTHLY IM 01/20/24 11:30 Lisinopril 20 mg DAILY PO 01/20/24 11:30 02/07/24 10:50 20 MG Nitroglycerin 250 ml @ 1.5 mls/hr Q24H IV 01/20/24 20:30 Albuterol 2.5 mg Q4HR NEB 01/20/24 22:00 02/08/24 01:48 2.5 MG Ipratropium [place] 0.5 mg Q4HR NEB 01/20/24 22:00 02/08/24 01:48 0.5 MG Enteral Nutritional Formula 1,000 ml 60ML/HR GT 01/22/24 14:00 02/01/24 20:06 1,000 ML Rocuronium [place] 1000 mg/ Dextrose 250 ml @ 20.832 mls/ hr Q12H1M IV 01/24/24 17:30 02/07/24 23:13 20.832 MLS/HR Vancomycin HCl 300 ml @ 200 mls/hr Q8H IV 01/28/24 02:00 Cancel Metoclopramide HCl 10 mg Q8HR IV 01/28/24 14:00 02/07/24 21:48 10 MG Docusate Sodium 100 mg BID GT 01/28/24 22:00 02/07/24 21:48 100 MG Hydralazine HCl 10 mg Q6HP PRN IV 01/30/24 13:15 02/05/24 02:46 10 MG Acetaminophen 650 mg Q4HP PRN PO 01/31/24 07:30 02/01/24 12:21 650 MG Furosemide 40 mg BIDD IV 02/02/24 10:30 02/07/24 17:13 40 MG Propofol 100 ml @ 4.599 mls/ hr [id number] IV 02/02/24 22:45 02/08/24 03:53 36.792 MLS/HR Amino Acids 0 ml @ 0 mls/hr PER PHARMACY IV 02/03/24 12:15 Insulin Glargine 20 units BID@1000,2200 SC 02/04/24 10:00 02/07/24 21:50 20 UNITS Cefepime HCl 50 ml @ 12.5 mls/hr Q8HR IV 02/04/24 14:00 02/07/24 21:49 12.5 MLS/HR Diagnostic Test (Pha) 1 strip Q6HR 02/05/24 18:00 02/07/24 23:14 1 STRIP Dextrose 50 ml UD PRN IV 02/05/24 13:15 Insulin Human Regular Q6HR SC 02/05/24 15:15 02/07/24 23:19 16 UNITS Fentanyl Citrate 250 ml @ 2.5 mls/hr Q24H IV 02/07/24 08:15 02/08/24 04:43 35 MLS/HR Sodium Chloride 50 meq/Sodium Phosphate 40 meq/ Potassium Chloride 60 meq/ Magnesium Sulfate 14 meq/ Multivitamins 10 ml/Insulin Human Regular 40 units/ Amino Acids/ Dextrose/Purified Water 1,366.4 ml @ 57 mls/hr [id number] IV 02/07/24 22:00 02/08/24 21:59 02/07/24 21:52 57 MLS/HR Methylprednisolone Sodium Succinate 40 mg Q8HR IV 02/07/24 22:00 02/07/24 21:48 40 MG Quetiapine Fumarate 100 mg BID PO 02/07/24 22:00 02/07/24 21:48 100 MG laboratory and microbiology Laboratory Tests 02/08/24 03:34 02/07/24 08:04 Test 02/08/24 03:34 Range/Units Serum Glucose 362 H 74-106 mg/dL Assessment/Plan Assessment/Plan Assessment/Plan Patient is 28 year old morbidly obese male who presented to ED with shortness of breath. He has been intubated for respiratory failure and in on vent. support. Information was obtained by reviewing the chart and communicating with staff. Cardiology is involved for cardiac aspects of care. There is no report of chest pain prior to presentation. Reportedly, patient has been intubated for manager terminal previously for Asthma in other institution. Intubated and on vent support. Morbidly obese. Does have right sided subclavian access. No JVD. Mucosa is pink and wet. No goiter. Scattered rhonchi is heard. Cardiac: RR, no thrill, no gallop. Abdomen is soft, obese and distended. BS is +. Ext reveal 2+ edema bilaterally. DP is 2+ bilateral PMH reportedly includes Morbid obesity, Asthma (with previous intubations), Autism, Schizophrenia and ANNETTE. Smokes Marijuana and drinks alcohol WBC: 11.6 to 11.2 to 14.2 to 12.2 to 13.3 to 16.4 to 17.5 to 15.3 to 13.8 to 15.7 to 13.8 - 22.2 to 22.3 to 16.3 to 20.1 D-dimer: 0.43 (wnl) Creat: 0.73 - 0.70 - 0.67 - 0.76 - 0.71 - 0.70 - 0.69 - 0.59 - 0.60 - 0.52 - 0.50 - 0.47 - 0.47 - 0.62 - 0.42 - 0.39 - 0.51 - 0.52 - 0.46 - 0.38 - 0.41 K: 4.1 - 4.3 - 4.1 - 4.2 - 4.0 - 4.1 - 4.1 - 3.9 - 4.0 - 3.8 - 4.3 - 4.7 - 4.4 - 4.4 - 4.3 - 4.3 - 4.1 - 3.6 - 4.9 BNP: 561.97 - 173.31 Trop (high sensitive): 61 - 62 - 131 - 132 - 91 - 82 TSH: 0.48 Urine toxicology was positive for Cannabinoids and Benzodiazpin Chest xry revealed: FINDINGS: Lines and Tubes: None Lungs: Obscuration of the left hemidiaphragm Diffuse interstitial prominence. No pneumothorax. Cardiomediastinal contours: Moderate cardiomegaly Bones: No acute osseous abnormality. IMPRESSION: Moderate cardiomegaly with findings suggestive of congestive heart failure. Possible left-sided pleural effusion. Repeat chest xry revealed: Endotracheal tube projects terminating 1.8 cm superior to the zbigniew. Enteric tube is projecting below the GE junction without visualization of the port or tip. Low lung volumes with bronchovascular crowding. Possible small left-sided pleural effusion and/or atelectasis. No pneumothorax. Repeat chest xry revealed: Cardiomediastinal silhouette is enlarged. There is increased pulmonary vascular congestion, similar prior examination. Obscuration of the left hemidiaphragm may be on the basis of technique versus small pleural effusion. No discrete pneumothorax. Endotracheal tube and enteric tube are redemonstrated. Left IJ catheter tip is likely at the region of the brachiocephalic vein. Repeat chest xry revealed: FINDINGS: Cardiomediastinal silhouette is enlarged. There is increased pulmonary vascular congestion, similar prior examination. Obscuration of the left hemidiaphragm may be on the basis of technique versus small pleural effusion. No discrete pneumothorax. Endotracheal tube and enteric tube are redemonstrated. Left IJ catheter tip is likely at the region of the brachiocephalic vein. IMPRESSION: NO INTERVAL CHANGE. Repeat chest xry revealed: IMPRESSION: Improving pulmonary edema compared to prior exam. Repeat chest xry revealed: IMPRESSION: stable pulmonary edema compared to prior exam. Repeat chest xry revealed: IMPRESSION: Lines and tubes in satisfactory position. No significant interval change. Repeat chest xry revealed: IMPRESSION: Lines and tubes in satisfactory position. No significant interval change. Repeat chest xry revealed: IMPRESSION: Lines and tubes in satisfactory position. No significant interval change. Repeat chest xry: IMPRESSION: 1. Stable position of the support lines and tubes. 2. No significant change in diffuse bilateral airspace opacities. Repeat chest xry revealed: IMPRESSION: 1. Endotracheal tube terminates 6.4 symbol the zbigniew. 2. Bilateral airspace disease unchanged. Repeat chest xry revealed: IMPRESSION: 1. Endotracheal tube 4.1 cm above the zbigniew. 2. OG tube not visualized AND may BE IN THE RIGHT MAINSTEM BRONCHUS RECOMMEND REMOVAL AND REPOSITIONING WITH REPEAT CHEST X-RAY. Repeat chest xry revealed: FINDINGS: Endotracheal tube in place 4.4 cm above the zbigniew. Left internal jugular catheter in place in the superior vena cava. Cardiomegaly is noted with pulmonary vascular congestion findings may represent congestive failure other possibility such as pneumonia are in the differential. IMPRESSION: 1. Cardiomegaly with findings of pulmonary vascular congestion. Findings may represent congestive failure or pneumonia. Repeat chest xry revealed: Lines and Tubes: The endotracheal tube terminates 3.1 cm above the zbigniew. Left central venous catheter terminates in the superior vena cava. Enteric tube is visualized to the mid chest but not visualized below the left hemidiaphragm. Lungs: Bilateral airspace disease. Pleura: No effusion. No pneumothorax. Cardiomediastinal contours: Stable cardiomegaly. Bones: No acute osseous abnormality. IMPRESSION: 1. Enteric tube not visualized below the left hemidiaphragm. 2. Bilateral airspace disease similar to prior exam. Repeat chest xry revealed: Limited evaluation given patient positioning. The heart appears markedly enlarged. There are low lung volumes with moderate alveolar airspace opacities suggesting pulmonary edema. No discrete pneumothorax. Endotracheal tube appear stable. Enteric tube is not well visualized. Repeat chest xry revealed: IMPRESSION: 1. Stable appearance of the support lines and tubes. 2. Pulmonary opacities, unchanged. Repeat chest xry revealed: Evaluation limited by patient body habitus. Lines and Tubes: The endotracheal tube terminates 5.7 cm above the zbigniew. Left central venous catheter is unchanged in position. Enteric tube courses below the left hemidiaphragm and outside the field of view. Lungs: Bilateral airspace disease similar to prior study. Pleura: Possible bilateral pleural effusions. No pneumothorax. Cardiomediastinal contours: Stable. Bones: No acute osseous abnormality. IMPRESSION: 1. No significant interval change. Repeat chest xry revealed: IMPRESSION: Right lower lobe pneumonia. Repeat chest xry revealed: IMPRESSION: 1. Right middle lobe consolidation which may represent pneumonia. 2. Pulmonary congestion. 3. Obscuration of the left hemidiaphragm for which left pleural effusion is not excluded. 4. Stable cardiomegaly. KUB revealed: Impression: 1. Nonobstructive bowel gas pattern. 2. Enteric tube overlying the plane of the stomach. 3. No visualized renal calculi. Venous duplex of lower ext revealed: Impression: 1. No right or left femoropopliteal venous thrombosis. 2. Left common femoral vein and proximal superficial femoral vein are not visible and therefore thrombus can not be excluded in those areas. EKG revealed: Sinus tachycardia with non-specific STT changes Tele reveals Sinus rhythm Echocardiogram revealed: Technically limited study secondary to poor acoustic windows. Left ventricle: Left ventricle was normal-sized with normal systolic function. LVEF was 60-65%. There was no gross wall motion abnormality observed. Right ventricle was not well visualized but it was dilated. Left atrium was normal-sized. Right atrium was not well visualized. Aortic valve was trileaflet and normal. There was no aortic insufficiency/stenosis. There was trivial mitral and tricuspid regurgitation. There was mild pulmonary valve insufficiency. As there was no good tricuspid regurgitation jet, right ventricular systolic pressure could not be estimated. There was no pericardial effusion. Patient is 28 year old male with history of morbid obesity who presented with respiratory failure. Does have history of Asthma and reportedly has been intubated for it before. Trop has been mildly elevated. ACS is less likely and increase in troponin most likely represents demand physiology. Still, component of type 1 physiology cannot be completely ruled out. Echo revealed dilated RV. As there was no good TR jet, RVSP could not be estimated. Pulmonary Hypertension cannot be ruled out. Pulmonary on board. On sedation. ID on board Acute respiratory failure Asthma Asthma exacerbation Morbid obesity Abnormal trop Questionable heart failure, acute Pneumonia s/p bronchoscopy Cardiac suggestion for management: Manage in ICU IV diuresis Follow up electrolytes and kidney function test and correct abnormalities. Keep potassium above 4 and magnesium above 2 Lovenox ASA Follow up vital signs and correct hyper/hypotension. If needed add pressure support to keep MAP above 65 mmHg Pulmonary follow up Further evaluation and management depends on the above and clinical course A total of 75 minutes was spent reviewing the patient record, examining the patient, making a diagnostic and therapeutic plan, discussing this plan with medical personnel, following up on diagnostic studies and following the patient for clinical stability excluding any and all procedures. At least 50% of this time was spent in direct, [id number] contact. Thank you for allowing me to participate in this patient's care. Further recommendations will depend on patient's clinical course. Please do not hesitate to contact me if you have any questions or concerns. This medical document was created using electronic medical record system with [employer] computerized dictation system. Although this document has been carefully reviewed, there may still be some phonetic and typographical errors. These areas are purely typographical due to the imperfection of the software programs, and do not reflect any compromise in the patient's medical care. Dietary Evaluation Review Comments: Current Jevity 1.2 @60ml/hr TF is meeting pt's need for protein at 60% for energy at 117% Continue monitor nutrition progress of nutrition support to meet 75% of his needs. Advance to a cardiac diet, texture as tolerated when medically feasible. Expected Outcomes/Goals: gradual weight loss Plan discussed with: Other (Primary RN) RAEGAN CAMILO Feb 08, 2024 05:01
[2024-02-08 06:54] LABS: Base Excess 3.9 mmol/L (-2.0-3.0)
--- NOTE | 2024-02-08 07:58 | DVHPN2 ---
Progress Note - Dictate Date Seen: Feb 08, 2024 Medical Necessity Reason Pt with a Central, PICC or Fol: Yes The following are medically ne: Reyes Catheter Reason for reyes catheter: Strict I&O vital signs Vital Sign Date Time Temp Pulse Resp B/P (MAP) Pulse Ox O2 Delivery O2 Flow Rate FiO2 02/08/24 06:58 99.0 62 28 115/51 (72) 93 210.2 02/08/24 06:45 Mechanical Ventilator+ 30 30 Total Intake and Output 02/07/24 02/07/24 02/08/24 15:00 23:00 07:00 Intake Total 1200.972 ml 1396.662 ml 1366.992 ml Output Total 4100 ml 3200 ml Balance 1200.972 ml -2703.338 ml -1833.008 ml medications Current Medications Medications Dose Ordered Sig/Reji Route Start Time Stop Time Status Last Admin Dose Admin Ondansetron HCl 4 mg Q4HP PRN IV 01/19/24 20:15 Pantoprazole Sodium 40 mg DAILY IV 01/20/24 10:00 02/07/24 10:51 40 MG Nitroglycerin 0.4 mg Q5MINP PRN SL 01/19/24 20:15 Midazolam HCl 50 ml @ 1 mls/hr Q24H IV 01/19/24 21:30 02/08/24 05:25 15 MLS/HR Aspirin 81 mg DAILY NG 01/20/24 10:00 02/07/24 10:50 81 MG Atorvastatin Calcium 40 mg HS PO 01/20/24 22:00 02/07/24 21:48 40 MG Latanoprost 1 drop QPM EACHEYE 01/20/24 18:00 02/07/24 17:13 1 DROP Patient Own Medication 400 mg MONTHLY IM 01/20/24 11:30 Lisinopril 20 mg DAILY PO 01/20/24 11:30 02/07/24 10:50 20 MG Nitroglycerin 250 ml @ 1.5 mls/hr Q24H IV 01/20/24 20:30 Albuterol 2.5 mg Q4HR NEB 01/20/24 22:00 02/08/24 06:45 2.5 MG Ipratropium [place] 0.5 mg Q4HR NEB 01/20/24 22:00 02/08/24 06:45 0.5 MG Enteral Nutritional Formula 1,000 ml 60ML/HR GT 01/22/24 14:00 02/01/24 20:06 1,000 ML Rocuronium [place] 1000 mg/ Dextrose 250 ml @ 20.832 mls/ hr Q12H1M IV 01/24/24 17:30 02/07/24 23:13 20.832 MLS/HR Vancomycin HCl 300 ml @ 200 mls/hr Q8H IV 01/28/24 02:00 Cancel Metoclopramide HCl 10 mg Q8HR IV 01/28/24 14:00 02/08/24 05:25 10 MG Docusate Sodium 100 mg BID GT 01/28/24 22:00 02/07/24 21:48 100 MG Hydralazine HCl 10 mg Q6HP PRN IV 01/30/24 13:15 02/05/24 02:46 10 MG Acetaminophen 650 mg Q4HP PRN PO 01/31/24 07:30 02/01/24 12:21 650 MG Furosemide 40 mg BIDD IV 02/02/24 10:30 02/08/24 05:25 40 MG Propofol 100 ml @ 4.599 mls/ hr [id number] IV 02/02/24 22:45 02/08/24 05:50 36.792 MLS/HR Amino Acids 0 ml @ 0 mls/hr PER PHARMACY IV 02/03/24 12:15 Insulin Glargine 20 units BID@1000,2200 SC 02/04/24 10:00 02/07/24 21:50 20 UNITS Cefepime HCl 50 ml @ 12.5 mls/hr Q8HR IV 02/04/24 14:00 02/08/24 05:25 12.5 MLS/HR Diagnostic Test (Pha) 1 strip Q6HR 02/05/24 18:00 02/08/24 05:18 1 STRIP Dextrose 50 ml UD PRN IV 02/05/24 13:15 Insulin Human Regular Q6HR SC 02/05/24 15:15 02/08/24 05:19 20 UNITS Fentanyl Citrate 250 ml @ 2.5 mls/hr Q24H IV 02/07/24 08:15 02/08/24 04:43 35 MLS/HR Sodium Chloride 50 meq/Sodium Phosphate 40 meq/ Potassium Chloride 60 meq/ Magnesium Sulfate 14 meq/ Multivitamins 10 ml/Insulin Human Regular 40 units/ Amino Acids/ Dextrose/Purified Water 1,366.4 ml @ 57 mls/hr [id number] IV 02/07/24 22:00 02/08/24 21:59 02/07/24 21:52 57 MLS/HR Methylprednisolone Sodium Succinate 40 mg Q8HR IV 02/07/24 22:00 02/08/24 05:25 40 MG Quetiapine Fumarate 100 mg BID PO 02/07/24 22:00 02/07/24 21:48 100 MG objective General Appearance: alert, no distress HEENT: EOMI, PERRLA, normal external inspect of ears, no icterus, no nasal drainage Neck: no carotid bruit, no jugular venous distention (JVD), no lymphadenopathy Chest: normal thorax Respiratory: clear to auscultation Cardiovascular: regular rate and rhythm, no diastolic murmur, no jugular venous distention (JVD), no rub, no systolic murmur Abdominal: soft, no hepatomegaly, no mass, no splenomegaly, no tenderness Genitourinary: grossly normal external Musculoskeletal: no joint tenderness, no swelling Extremities: normal pulses, no calf tenderness, no clubbing, no cyanosis, no edema Skin: no bruising, no jaundice, no rash Neurological: alert, No focal deficit laboratory and microbiology Laboratory Tests 02/08/24 03:34 02/07/24 08:04 Test 02/08/24 03:34 Range/Units Serum Glucose 362 H 74-106 mg/dL Problem List 1. Asthma with acute exacerbation Pulmonary consult, monitoring 2. Acute hypoxic respiratory failure requiring intubation Pulmonary Consult 3. Schizophrenia Monitoring 4. Autism Medication, monitoring 5. Elevated Troponin Cardiology Consult, monitoring 6. Cannabis Use Education Assessment/Plan Subjective: Patient remains sedated and on a paralytic. Objective: I spoke with the patient's mother at the bedside. Patient was admitted on January 19, 2024, for acute asthma exacerbation. Patient was emergently intubated in the emergency room for acute hypoxic respiratory failure. The patient has not been able to be initiated on CPAP due to the inability to wean down sedation. Insurance approval for LTAC facility has been obtained. Pulmonary will attempt to wean the patient off the ventilator. Plan: Continue ventilator management for pulmonary. Monitor daily labs. Adjust Lantus as glucose remains elevated over 300. Possible G-tube and tracheostomy placement. Dietary Evaluation Review Comments: Current Jevity 1.2 @60ml/hr TF is meeting pt's need for protein at 60% for energy at 117% Continue monitor nutrition progress of nutrition support to meet 75% of his needs. Advance to a cardiac diet, texture as tolerated when medically feasible. Expected Outcomes/Goals: gradual weight loss Plan discussed with: Patient, Other VIK COBOS NP Feb 08, 2024 07:58
--- NOTE | 2024-02-08 10:46 | DVH ---
CLINICAL INFORMATION: 28 years old, Male; intubated/sedated. TECHNIQUE: Single AP portable chest radiograph was obtained. COMPARISON: XY CHEST PORTABLE on DOS: 02/06/24, XY CHEST XRAY 1 VIEW on DOS: 02/05/24, XY CHEST HERMAN BLE on DOS: 02/03/24 FINDINGS: Low lung volumes limits evaluation. Bilateral airspace opacities are unchanged. Likely small left pl eural effusion. No pneumothorax visualized. Stable satisfactory positioning of the endotracheal tube and enteric tube. Stable positioning of the left internal jugular central venous catheter, with the t ip at the level of the left brachiocephalic vein. IMPRESSION: No significant interval change as detailed above.
[2024-02-08] MEDS: SODIUM CHL 0.9% IV SCH (14:46)
[2024-02-08] MEDS: ROCURONIUM BROMIDE IV SCH (14:46)
--- NOTE | 2024-02-08 19:36 | DVHPN2 ---
Progress Note - Dictate Date Seen: Feb 08, 2024 Medical Necessity Reason Pt with a Central, PICC or Fol: Yes The following are medically ne: Reyes Catheter Reason for reyes catheter: Strict I&O Subjective Patient remains intubated. No new acute complaints noted at this time. WBC trending down fio2 30% Patient has not been able to have sedation weaned off and to proceed with CPAP due to patient's severe anxiety. vital signs Vital Sign Date Time Temp Pulse Resp B/P (MAP) Pulse Ox O2 Delivery O2 Flow Rate FiO2 02/08/24 18:11 78 28 128/70 (89) 97 30 02/08/24 18:00 Mechanical Ventilator+ 02/08/24 17:29 99.7 211.5 Total Intake and Output 02/07/24 02/07/24 02/08/24 15:00 23:00 07:00 Intake Total 1200.972 ml 1396.662 ml 1366.992 ml Output Total 4100 ml 3200 ml Balance 1200.972 ml -2703.338 ml -1833.008 ml medications Current Medications Medications Dose Ordered Sig/Reji Route Start Time Stop Time Status Last Admin Dose Admin Ondansetron HCl 4 mg Q4HP PRN IV 01/19/24 20:15 Pantoprazole Sodium 40 mg DAILY IV 01/20/24 10:00 02/08/24 09:46 40 MG Nitroglycerin 0.4 mg Q5MINP PRN SL 01/19/24 20:15 Midazolam HCl 50 ml @ 1 mls/hr Q24H IV 01/19/24 21:30 02/08/24 16:58 15 MLS/HR Aspirin 81 mg DAILY NG 01/20/24 10:00 02/08/24 09:47 81 MG Atorvastatin Calcium 40 mg HS PO 01/20/24 22:00 02/07/24 21:48 40 MG Latanoprost 1 drop QPM EACHEYE 01/20/24 18:00 02/08/24 16:59 1 DROP Patient Own Medication 400 mg MONTHLY IM 01/20/24 11:30 Lisinopril 20 mg DAILY PO 01/20/24 11:30 02/08/24 10:00 20 MG Nitroglycerin 250 ml @ 1.5 mls/hr Q24H IV 01/20/24 20:30 Albuterol 2.5 mg Q4HR NEB 01/20/24 22:00 02/08/24 18:11 2.5 MG Ipratropium [place] 0.5 mg Q4HR NEB 01/20/24 22:00 02/08/24 18:11 0.5 MG Enteral Nutritional Formula 1,000 ml 60ML/HR GT 01/22/24 14:00 02/01/24 20:06 1,000 ML Vancomycin HCl 300 ml @ 200 mls/hr Q8H IV 01/28/24 02:00 Cancel Metoclopramide HCl 10 mg Q8HR IV 01/28/24 14:00 02/08/24 14:06 10 MG Docusate Sodium 100 mg BID GT 01/28/24 22:00 02/08/24 09:47 100 MG Hydralazine HCl 10 mg Q6HP PRN IV 01/30/24 13:15 02/05/24 02:46 10 MG Acetaminophen 650 mg Q4HP PRN PO 01/31/24 07:30 02/01/24 12:21 650 MG Furosemide 40 mg BIDD IV 02/02/24 10:30 02/08/24 16:59 40 MG Propofol 100 ml @ 4.599 mls/ hr [id number] IV 02/02/24 22:45 02/08/24 16:58 36.792 MLS/HR Amino Acids 0 ml @ 0 mls/hr PER PHARMACY IV 02/03/24 12:15 Cefepime HCl 50 ml @ 12.5 mls/hr Q8HR IV 02/04/24 14:00 02/08/24 14:05 12.5 MLS/HR Diagnostic Test (Pha) 1 strip Q6HR 02/05/24 18:00 02/08/24 17:00 1 STRIP Dextrose 50 ml UD PRN IV 02/05/24 13:15 Insulin Human Regular Q6HR SC 02/05/24 15:15 02/08/24 17:08 20 UNITS Fentanyl Citrate 250 ml @ 2.5 mls/hr Q24H IV 02/07/24 08:15 02/08/24 17:19 35 MLS/HR Sodium Chloride 50 meq/Sodium Phosphate 40 meq/ Potassium Chloride 60 meq/ Magnesium Sulfate 14 meq/ Multivitamins 10 ml/Insulin Human Regular 40 units/ Amino Acids/ Dextrose/Purified Water 1,366.4 ml @ 57 mls/hr [id number] IV 02/07/24 22:00 02/08/24 21:59 02/07/24 21:52 57 MLS/HR Methylprednisolone Sodium Succinate 40 mg Q8HR IV 02/07/24 22:00 02/08/24 14:06 40 MG Quetiapine Fumarate 100 mg BID PO 02/07/24 22:00 02/08/24 09:46 100 MG Sodium Chloride 60 meq/Sodium Phosphate 40 meq/ Potassium Chloride 60 meq/ Magnesium Sulfate 14 meq/ Multivitamins 10 ml/Insulin Human Regular 32 units/ Amino Acids/ Dextrose/Purified Water 1,268.82 ml @ 53 mls/hr [id number] IV 02/08/24 22:00 02/09/24 21:59 Insulin Glargine 30 units BID@1000,2200 SC 02/08/24 22:00 Rocuronium [place] 1000 mg/ Sodium Chloride 250 ml @ 20.832 mls/ hr Q12H1M IV 02/08/24 14:15 02/08/24 14:46 20.832 MLS/HR objective Gen.: Patient lying in bed in medical ICU. Sedated, intubated on mechanical ventilator. Head: Normocephalic, atraumatic. Eyes: PERRLA. Ears: Normal external anatomy. Throat: Endotracheal tube and orogastric tube in place. Neck: Supple, trachea midline. Chest: Decreased air entry bilaterally. No wheezing. Bibasilar crackles. Cardiovascular: Positive S1, positive S2. Regular rate and rhythm. Abdomen: . Soft, nontender, nondistended. : Reyes in place. Normal external genitalia. Rectal: Deferred. Skin: Warm, dry. Intact. Extremities: No lower extremity edema. Neuro: Sedated. laboratory and microbiology Laboratory Tests 02/08/24 03:34 02/07/24 08:04 Test 02/08/24 03:34 Range/Units Serum Glucose 362 H 74-106 mg/dL Assessment/Plan Patient is a 28-year-old male presented to the hospital with: # thrombocytopenia Multifocal pneumonia: [place] ARDS Acute hypoxic respiratory failure On mechanical ventilator Coag negative staphylococcus bacteremia leucocytosis Acute exacerbation of asthma Elevated Troponin Schizophrenia Autism Cannabinoid Use Morbid obesity BMI 60.5 Pulmonary edema Recommendations: reviewed cultures since admission listed below Culture History: 01/21, Blood culture showed Growth Of Coagulase Negative Staphylococcus 01/30, Urine culture: No growth monitored 01/30, Sputum culture showed Klebsiella pneumoniae 02/04: BAL cx [place] MRSA screen neg 02/05 chest x-ray : Right middle lobe consolidation which may represent pneumonia and Pulmonary congestion. Obscuration of the left hemidiaphragm for which left pleural effusion is not excluded. Stable cardiomegaly. antibiotics history Vancomycin 01/22- Linezolid 01/27- 02/03 Zosyn: 01/31- 02/03 blood cx seems to look contaminations, + 1/2. discontinued Linezolid ( also platelets dropping) CXR shows multifocal infiltrate suggestive of ARDS, he is requiring high FIO2, possibly associated with pulm edema and bacterial pneumonia [place] is pansensitive, switched to cefepime. ( total duration of antibiotics 7-10 days including zosyn which was started on 01/31 pulmonary is on board, s/p bronchoscopy 02/04: mucous plugging, BAL cx grew Klebsiella lasix prognosis is very poor. critical time 35 minutes spent. Thank you for consult and for giving an opportunity to take care of this patient. Dietary Evaluation Review Comments: Current Jevity 1.2 @60ml/hr TF is meeting pt's need for protein at 60% for energy at 117% Continue monitor nutrition progress of nutrition support to meet 75% of his needs. Advance to a cardiac diet, texture as tolerated when medically feasible. Expected Outcomes/Goals: gradual weight loss Plan discussed with: EBEN Singh MD Feb 08, 2024 19:36
--- NOTE | 2024-02-08 20:21 | DVHPN2 ---
Progress Note - Dictate Date Seen: Feb 08, 2024 Medical Necessity Reason Pt with a Central, PICC or Fol: Yes The following are medically ne: Reyes Catheter Reason for reyes catheter: Strict I&O Subjective Patient seen and examined at bedside. Sedated, intubated on mechanical ventilator. Overnight events reviewed. vital signs Vital Sign Date Time Temp Pulse Resp B/P (MAP) Pulse Ox O2 Delivery O2 Flow Rate FiO2 02/08/24 20:07 114/61 02/08/24 19:53 63 28 99 30 02/08/24 18:00 Mechanical Ventilator+ 02/08/24 17:29 99.7 211.5 Total Intake and Output 02/07/24 02/07/24 02/08/24 15:00 23:00 07:00 Intake Total 1200.972 ml 1396.662 ml 1366.992 ml Output Total 4100 ml 3200 ml Balance 1200.972 ml -2703.338 ml -1833.008 ml medications Current Medications Medications Dose Ordered Sig/Reji Route Start Time Stop Time Status Last Admin Dose Admin Ondansetron HCl 4 mg Q4HP PRN IV 01/19/24 20:15 Pantoprazole Sodium 40 mg DAILY IV 01/20/24 10:00 02/08/24 09:46 40 MG Nitroglycerin 0.4 mg Q5MINP PRN SL 01/19/24 20:15 Midazolam HCl 50 ml @ 1 mls/hr Q24H IV 01/19/24 21:30 02/08/24 20:07 15 MLS/HR Aspirin 81 mg DAILY NG 01/20/24 10:00 02/08/24 09:47 81 MG Atorvastatin Calcium 40 mg HS PO 01/20/24 22:00 02/07/24 21:48 40 MG Latanoprost 1 drop QPM EACHEYE 01/20/24 18:00 02/08/24 16:59 1 DROP Patient Own Medication 400 mg MONTHLY IM 01/20/24 11:30 Lisinopril 20 mg DAILY PO 01/20/24 11:30 02/08/24 10:00 20 MG Nitroglycerin 250 ml @ 1.5 mls/hr Q24H IV 01/20/24 20:30 Albuterol 2.5 mg Q4HR NEB 01/20/24 22:00 02/08/24 18:11 2.5 MG Ipratropium [place] 0.5 mg Q4HR NEB 01/20/24 22:00 02/08/24 18:11 0.5 MG Enteral Nutritional Formula 1,000 ml 60ML/HR GT 01/22/24 14:00 02/01/24 20:06 1,000 ML Vancomycin HCl 300 ml @ 200 mls/hr Q8H IV 01/28/24 02:00 Cancel Metoclopramide HCl 10 mg Q8HR IV 01/28/24 14:00 02/08/24 14:06 10 MG Docusate Sodium 100 mg BID GT 01/28/24 22:00 02/08/24 09:47 100 MG Hydralazine HCl 10 mg Q6HP PRN IV 01/30/24 13:15 02/05/24 02:46 10 MG Acetaminophen 650 mg Q4HP PRN PO 01/31/24 07:30 02/01/24 12:21 650 MG Furosemide 40 mg BIDD IV 02/02/24 10:30 02/08/24 16:59 40 MG Propofol 100 ml @ 4.599 mls/ hr [id number] IV 02/02/24 22:45 02/08/24 20:07 36.792 MLS/HR Amino Acids 0 ml @ 0 mls/hr PER PHARMACY IV 02/03/24 12:15 Cefepime HCl 50 ml @ 12.5 mls/hr Q8HR IV 02/04/24 14:00 02/08/24 14:05 12.5 MLS/HR Diagnostic Test (Pha) 1 strip Q6HR 02/05/24 18:00 02/08/24 17:00 1 STRIP Dextrose 50 ml UD PRN IV 02/05/24 13:15 Insulin Human Regular Q6HR SC 02/05/24 15:15 02/08/24 17:08 20 UNITS Fentanyl Citrate 250 ml @ 2.5 mls/hr Q24H IV 02/07/24 08:15 02/08/24 17:19 35 MLS/HR Sodium Chloride 50 meq/Sodium Phosphate 40 meq/ Potassium Chloride 60 meq/ Magnesium Sulfate 14 meq/ Multivitamins 10 ml/Insulin Human Regular 40 units/ Amino Acids/ Dextrose/Purified Water 1,366.4 ml @ 57 mls/hr [id number] IV 02/07/24 22:00 02/08/24 21:59 02/07/24 21:52 57 MLS/HR Methylprednisolone Sodium Succinate 40 mg Q8HR IV 02/07/24 22:00 02/08/24 14:06 40 MG Quetiapine Fumarate 100 mg BID PO 02/07/24 22:00 02/08/24 09:46 100 MG Sodium Chloride 60 meq/Sodium Phosphate 40 meq/ Potassium Chloride 60 meq/ Magnesium Sulfate 14 meq/ Multivitamins 10 ml/Insulin Human Regular 32 units/ Amino Acids/ Dextrose/Purified Water 1,268.82 ml @ 53 mls/hr [id number] IV 02/08/24 22:00 02/09/24 21:59 Insulin Glargine 30 units BID@1000,2200 SC 02/08/24 22:00 Rocuronium [place] 1000 mg/ Sodium Chloride 250 ml @ 20.832 mls/ hr Q12H1M IV 02/08/24 14:15 02/08/24 14:46 20.832 MLS/HR objective Gen.: Patient lying in bed in medical ICU. Sedated, intubated on mechanical ventilator. Head: Normocephalic, atraumatic. Eyes: PERRLA. Ears: Normal external anatomy. Throat: Endotracheal tube and orogastric tube in place. Neck: Supple, trachea midline. Chest: Transmitted breath sounds bilaterally. Decreased air entry bilaterally. No wheezing. Bibasilar crackles. Cardiovascular: Positive S1, positive S2. Regular rate and rhythm. Abdomen: Positive bowel sounds in all 4 quadrants. Soft, nontender, nondistended. : Reyes in place. Normal external genitalia. Rectal: Deferred. Skin: Warm, dry. Intact. Extremities: 2+ radial pulses bilaterally. No lower extremity edema. Neuro: Sedated. laboratory and microbiology Laboratory Tests 02/08/24 03:34 02/07/24 08:04 Test 02/08/24 03:34 Range/Units Serum Glucose 362 H 74-106 mg/dL Assessment/Plan Impression: Acute hypoxic respiratory failure On mechanical ventilator Acute exacerbation of asthma Elevated Troponin Schizophrenia Autism Cannabinoid Use Morbid obesity BMI 60.5 Pulmonary edema Events: Remains on vent support On AC mode with RR 28, VT 500, PEEP 8, FiO2 30% Sedated on Versed, Fentanyl Remains on Rocuronium drip for paralytic. Leukocytosis - monitor WBC Bronchoscopy w/ RML BAL was performed on 02/05/24. Cultures grew Klebsiella pneumoniae. ABG reviewed. Compensated. CXR demonstrates devices in place; Bilateral airspace opacities are unchanged. Likely small left pleural effusion. No pneumothorax. Seroquel 100 mg q.12 hours. Continue bronchodilators IV steroids Continue antibiotics - on cefepime TPN for nutritional support Diurese to euvolemia - Lasix BID Monitor renal function Monitor electrolytes. Supplement as necessary. Monitor ins and outs. Patient has not tolerated decrease in paralytic drip. Remains on sedation. Taper down FiO2 as tolerated Recommend trach/PEG to liberate from vent. Labs and imaging reviewed. Rest of plan as noted below. Plan: s/p intubation on mechanical ventilator. On AC mode with RR 28, VT 500, PEEP 8, FiO2 30% Titrate FIO2 to keep O2 saturation above 90%. VAP bundle. Daily ABG and CXR while intubated Sedate for ventilator synchrony Pt does not tolerate turns. Derecruitment. Turn carefully. Elevated Troponin - Cardiology recs appreciated. Continue bronchodilators Antibiotics. F/u cultures. Pressors if necessary for hemodynamic support Titrate to keep mean arterial pressure greater than 65 mmHg. Currently off pressors, hemodynamically stable. Diurese to euvolemia Monitor renal function Monitor electrolytes. Supplement as necessary. Monitor ins and outs. Diet and lifestyle modifications for weight reduction Morbid obesity - complicates all care GI prophylaxis. DVT prophylaxis. Prognosis: Poor given patient's multiple co-morbidities. Condition: Critical Rest of plan per hospitalist and other consultants. A total of 35 minutes of critical care time was spent reviewing the patient record, examining the patient, making a diagnostic and therapeutic plan, discussing this plan with the medical personnel, following up on diagnostic studies and following the patient for clinical stability excluding any and all procedures. At least 50% of this time was spent in direct, [id number] contact. Thank you Irma Velasquez NP, for allowing me to participate in this patient's care. Further recommendations will depend on the patient's clinical course. Please do not hesitate to contact me if you have any questions or concerns. This medical document was created using an electronic medical record system with [employer] system. Although these documentations are being carefully reviewed, there may still be some phonetic and typographical changes. The errors are purely typographical, due to imperfection on the software program, and do not reflect any compromise in the patient's medical care. Dietary Evaluation Review Comments: Current Jevity 1.2 @60ml/hr TF is meeting pt's need for protein at 60% for energy at 117% Continue monitor nutrition progress of nutrition support to meet 75% of his needs. Advance to a cardiac diet, texture as tolerated when medically feasible. Expected Outcomes/Goals: gradual weight loss Plan discussed with: Other (SAIGE Grace) Critical Care Time(min): 35 VERÓNICA MERCER MD Feb 08, 2024 20:21
[2024-02-08] MEDS: INSULIN LANTUS (GLARGINE) 1 /0.01ml (100units/ml) SC SCH (21:45)
[2024-02-08] MEDS: TPN PER PHARMACY IV NR (21:46)
[2024-02-09] VITALS (114 sets, daily range): BP systolic 101–144; BP diastolic 41–89; PULSE 44–132; RESP 19–35; TEMP 97.5–100; O2SAT 91–100
[2024-02-09 04:29] LABS: Albumin 3.6 g/dL (3.2-4.8); Alkaline Phosphatase 111 U/L (46-116); Anion Gap 8 (5-15); Aspartate Aminotransferase 35 U/L (13-40); BUN/Creatinine Ratio 51.2 (10.0-20.0); Blood Urea Nitrogen 21 mg/dL (9-23); Calcium 9.3 mg/dL (8.7-10.4); Carbon Dioxide 29 mmol/L (20-31); Chloride 99 mmol/L (98-107); Magnesium 2.1 mg/dL (1.6-2.6); Phosphorus 3.3 mg/dL (2.4-5.1); Potassium 4.4 mmol/L (3.5-5.1); Sodium 136 mmol/L (136-145); Total Protein 6.1 g/dL (5.7-8.2)
[2024-02-09 04:35] LABS: Alanine Aminotransferase 116 U/L (7-40); Bilirubin, Total 2.1 mg/dL (0.2-1.0); Glucose 331 mg/dL (74-106)
[2024-02-09 10:25] LABS: Base Excess 1.5 mmol/L (-2.0-3.0)
--- NOTE | 2024-02-09 11:44 | DVHPN2 ---
Progress Note - Dictate Date Seen: Feb 09, 2024 Medical Necessity Reason Pt with a Central, PICC or Fol: Yes The following are medically ne: Reyes Catheter Reason for reyes catheter: Strict I&O vital signs Vital Sign Date Time Temp Pulse Resp B/P (MAP) Pulse Ox O2 Delivery O2 Flow Rate FiO2 02/09/24 10:00 28 96 Mechanical Ventilator+ 30 30 02/09/24 10:00 110 02/09/24 09:48 121/76 (91) 02/09/24 07:29 99.9 211.8 Total Intake and Output 02/08/24 02/08/24 02/09/24 15:00 23:00 07:00 Intake Total 1148.204 ml 1176.239 ml 1019.437 ml Output Total 2725 ml 2700 ml Balance 1148.204 ml -1548.761 ml -1680.563 ml medications Current Medications Medications Dose Ordered Sig/Reji Route Start Time Stop Time Status Last Admin Dose Admin Ondansetron HCl 4 mg Q4HP PRN IV 01/19/24 20:15 Pantoprazole Sodium 40 mg DAILY IV 01/20/24 10:00 02/09/24 09:05 40 MG Nitroglycerin 0.4 mg Q5MINP PRN SL 01/19/24 20:15 Midazolam HCl 50 ml @ 1 mls/hr Q24H IV 01/19/24 21:30 02/09/24 11:20 14 MLS/HR Aspirin 81 mg DAILY NG 01/20/24 10:00 02/09/24 09:05 81 MG Atorvastatin Calcium 40 mg HS PO 01/20/24 22:00 02/08/24 21:39 40 MG Latanoprost 1 drop QPM EACHEYE 01/20/24 18:00 02/08/24 16:59 1 DROP Patient Own Medication 400 mg MONTHLY IM 01/20/24 11:30 Lisinopril 20 mg DAILY PO 01/20/24 11:30 02/09/24 09:05 20 MG Nitroglycerin 250 ml @ 1.5 mls/hr Q24H IV 01/20/24 20:30 Albuterol 2.5 mg Q4HR NEB 01/20/24 22:00 02/09/24 09:48 2.5 MG Ipratropium [place] 0.5 mg Q4HR NEB 01/20/24 22:00 02/09/24 09:48 0.5 MG Enteral Nutritional Formula 1,000 ml 60ML/HR GT 01/22/24 14:00 02/01/24 20:06 1,000 ML Vancomycin HCl 300 ml @ 200 mls/hr Q8H IV 01/28/24 02:00 Cancel Metoclopramide HCl 10 mg Q8HR IV 01/28/24 14:00 02/09/24 05:33 10 MG Docusate Sodium 100 mg BID GT 01/28/24 22:00 02/09/24 09:05 100 MG Hydralazine HCl 10 mg Q6HP PRN IV 01/30/24 13:15 02/05/24 02:46 10 MG Acetaminophen 650 mg Q4HP PRN PO 01/31/24 07:30 02/01/24 12:21 650 MG Furosemide 40 mg BIDD IV 02/02/24 10:30 02/09/24 05:33 40 MG Propofol 100 ml @ 4.599 mls/ hr [id number] IV 02/02/24 22:45 02/09/24 08:34 32.193 MLS/HR Amino Acids 0 ml @ 0 mls/hr PER PHARMACY IV 02/03/24 12:15 Cefepime HCl 50 ml @ 12.5 mls/hr Q8HR IV 02/04/24 14:00 02/09/24 05:33 12.5 MLS/HR Diagnostic Test (Pha) 1 strip Q6HR 02/05/24 18:00 02/09/24 11:17 1 STRIP Dextrose 50 ml UD PRN IV 02/05/24 13:15 Insulin Human Regular Q6HR SC 02/05/24 15:15 02/09/24 11:18 16 UNITS Fentanyl Citrate 250 ml @ 2.5 mls/hr Q24H IV 02/07/24 08:15 02/09/24 08:07 25 MLS/HR Methylprednisolone Sodium Succinate 40 mg Q8HR IV 02/07/24 22:00 02/09/24 05:33 40 MG Quetiapine Fumarate 100 mg BID PO 02/07/24 22:00 02/09/24 09:05 100 MG Sodium Chloride 60 meq/Sodium Phosphate 40 meq/ Potassium Chloride 60 meq/ Magnesium Sulfate 14 meq/ Multivitamins 10 ml/Insulin Human Regular 32 units/ Amino Acids/ Dextrose/Purified Water 1,268.82 ml @ 53 mls/hr [id number] IV 02/08/24 22:00 02/09/24 21:59 02/08/24 21:46 53 MLS/HR Insulin Glargine 30 units BID@1000,2200 SC 02/08/24 22:00 02/09/24 09:17 30 UNITS Rocuronium [place] 1000 mg/ Sodium Chloride 250 ml @ 20.832 mls/ hr Q12H1M IV 02/08/24 14:15 02/09/24 02:19 12.499 MLS/HR Sodium Chloride 80 meq/Sodium Phosphate 20 meq/ Potassium Chloride 80 meq/ Magnesium Sulfate 12 meq/ Multivitamins 10 ml/Insulin Human Regular 36 units/ Amino Acids/ Dextrose/Purified Water 1,378.36 ml @ 57 mls/hr [id number] IV 02/09/24 22:00 02/10/24 21:59 objective General Appearance: alert, no distress HEENT: EOMI, PERRLA, normal external inspect of ears, no icterus, no nasal drainage Neck: no carotid bruit, no jugular venous distention (JVD), no lymphadenopathy Chest: normal thorax Respiratory: clear to auscultation Cardiovascular: regular rate and rhythm, no diastolic murmur, no jugular venous distention (JVD), no rub, no systolic murmur Abdominal: soft, no hepatomegaly, no mass, no splenomegaly, no tenderness Genitourinary: grossly normal external Musculoskeletal: no joint tenderness, no swelling Extremities: normal pulses, no calf tenderness, no clubbing, no cyanosis, no edema Skin: no bruising, no jaundice, no rash Neurological: alert, No focal deficit laboratory and microbiology Laboratory Tests 02/09/24 03:00 02/07/24 08:04 Test 02/09/24 03:00 Range/Units Serum Glucose 331 H 74-106 mg/dL Problem List 1. Asthma with acute exacerbation Pulmonary consult, monitoring 2. Acute hypoxic respiratory failure requiring intubation Pulmonary Consult 3. Schizophrenia Monitoring 4. Autism Medication, monitoring 5. Elevated Troponin Cardiology Consult, monitoring 6. Cannabis Use Education Assessment/Plan Subjective: Patient remains intubated and sedated. Objective: Patient was admitted on January 19, 2024 for acute hypoxic respiratory failure. Patient has sepsis with Klebsiella pneumonia and acute asthma exacerbation and questionable CHF. Patient is currently on TPN for nutritional support. Patient has been on the ventilator for 21 days. Patient has been accepted to LTAC facility but still pending placement. Plan: Ventilator management per pulmonary. Unable to CPAP at at this time. Continue TPN for nutritional support. Dietary Evaluation Review Comments: Current Jevity 1.2 @60ml/hr TF is meeting pt's need for protein at 60% for energy at 117% Continue monitor nutrition progress of nutrition support to meet 75% of his needs. Advance to a cardiac diet, texture as tolerated when medically feasible. Expected Outcomes/Goals: gradual weight loss Plan discussed with: Patient, Other VIK COBOS NP Feb 09, 2024 11:44
--- NOTE | 2024-02-09 17:31 | DVHPN2 ---
Progress Note - Dictate Date Seen: Feb 09, 2024 Medical Necessity Reason Pt with a Central, PICC or Fol: Yes The following are medically ne: Reyes Catheter Reason for reyes catheter: Strict I&O vital signs Vital Sign Date Time Temp Pulse Resp B/P (MAP) Pulse Ox O2 Delivery O2 Flow Rate FiO2 02/09/24 16:10 94 28 128/71 (90) 97 30 02/09/24 16:00 Mechanical Ventilator+ 02/09/24 07:29 99.9 211.8 Total Intake and Output 02/08/24 02/08/24 02/09/24 15:00 23:00 07:00 Intake Total 1148.204 ml 1176.239 ml 1019.437 ml Output Total 2725 ml 2700 ml Balance 1148.204 ml -1548.761 ml -1680.563 ml medications Current Medications Medications Dose Ordered Sig/Reji Route Start Time Stop Time Status Last Admin Dose Admin Ondansetron HCl 4 mg Q4HP PRN IV 01/19/24 20:15 Pantoprazole Sodium 40 mg DAILY IV 01/20/24 10:00 02/09/24 09:05 40 MG Nitroglycerin 0.4 mg Q5MINP PRN SL 01/19/24 20:15 Midazolam HCl 50 ml @ 1 mls/hr Q24H IV 01/19/24 21:30 02/09/24 14:46 11 MLS/HR Aspirin 81 mg DAILY NG 01/20/24 10:00 02/09/24 09:05 81 MG Atorvastatin Calcium 40 mg HS PO 01/20/24 22:00 02/08/24 21:39 40 MG Latanoprost 1 drop QPM EACHEYE 01/20/24 18:00 02/08/24 16:59 1 DROP Patient Own Medication 400 mg MONTHLY IM 01/20/24 11:30 Lisinopril 20 mg DAILY PO 01/20/24 11:30 02/09/24 09:05 20 MG Nitroglycerin 250 ml @ 1.5 mls/hr Q24H IV 01/20/24 20:30 Albuterol 2.5 mg Q4HR NEB 01/20/24 22:00 02/09/24 14:17 2.5 MG Ipratropium [place] 0.5 mg Q4HR NEB 01/20/24 22:00 02/09/24 14:17 0.5 MG Enteral Nutritional Formula 1,000 ml 60ML/HR GT 01/22/24 14:00 02/01/24 20:06 1,000 ML Vancomycin HCl 300 ml @ 200 mls/hr Q8H IV 01/28/24 02:00 Cancel Metoclopramide HCl 10 mg Q8HR IV 01/28/24 14:00 02/09/24 14:52 10 MG Docusate Sodium 100 mg BID GT 01/28/24 22:00 02/09/24 09:05 100 MG Hydralazine HCl 10 mg Q6HP PRN IV 01/30/24 13:15 02/05/24 02:46 10 MG Acetaminophen 650 mg Q4HP PRN PO 01/31/24 07:30 02/01/24 12:21 650 MG Furosemide 40 mg BIDD IV 02/02/24 10:30 02/09/24 05:33 40 MG Propofol 100 ml @ 4.599 mls/ hr [id number] IV 02/02/24 22:45 02/09/24 08:34 32.193 MLS/HR Amino Acids 0 ml @ 0 mls/hr PER PHARMACY IV 02/03/24 12:15 Cefepime HCl 50 ml @ 12.5 mls/hr Q8HR IV 02/04/24 14:00 02/09/24 14:52 12.5 MLS/HR Diagnostic Test (Pha) 1 strip Q6HR 02/05/24 18:00 02/09/24 11:17 1 STRIP Dextrose 50 ml UD PRN IV 02/05/24 13:15 Insulin Human Regular Q6HR SC 02/05/24 15:15 02/09/24 11:18 16 UNITS Fentanyl Citrate 250 ml @ 2.5 mls/hr Q24H IV 02/07/24 08:15 02/09/24 08:07 25 MLS/HR Methylprednisolone Sodium Succinate 40 mg Q8HR IV 02/07/24 22:00 02/09/24 14:52 40 MG Quetiapine Fumarate 100 mg BID PO 02/07/24 22:00 02/09/24 09:05 100 MG Sodium Chloride 60 meq/Sodium Phosphate 40 meq/ Potassium Chloride 60 meq/ Magnesium Sulfate 14 meq/ Multivitamins 10 ml/Insulin Human Regular 32 units/ Amino Acids/ Dextrose/Purified Water 1,268.82 ml @ 53 mls/hr [id number] IV 02/08/24 22:00 02/09/24 21:59 02/08/24 21:46 53 MLS/HR Insulin Glargine 30 units BID@1000,2200 SC 02/08/24 22:00 02/09/24 09:17 30 UNITS Rocuronium [place] 1000 mg/ Sodium Chloride 250 ml @ 20.832 mls/ hr Q12H1M IV 02/08/24 14:15 02/09/24 02:19 12.499 MLS/HR Sodium Chloride 80 meq/Sodium Phosphate 20 meq/ Potassium Chloride 80 meq/ Magnesium Sulfate 12 meq/ Multivitamins 10 ml/Insulin Human Regular 36 units/ Amino Acids/ Dextrose/Purified Water 1,378.36 ml @ 57 mls/hr [id number] IV 02/09/24 22:00 02/10/24 21:59 Lactulose 30 ml Q6HR PO 02/09/24 18:00 laboratory and microbiology Laboratory Tests 02/09/24 03:00 02/07/24 08:04 Test 02/09/24 03:00 Range/Units Serum Glucose 331 H 74-106 mg/dL Assessment/Plan Patient is 28 year old morbidly obese male who presented to ED with shortness of breath. He has been intubated for respiratory failure and in on vent. support. Information was obtained by reviewing the chart and communicating with staff. Cardiology is involved for cardiac aspects of care. There is no report of chest pain prior to presentation. Reportedly, patient has been intubated for residential previously for Asthma in other institution. Intubated and on vent support. Morbidly obese. Does have right sided subclavian access. No JVD. Mucosa is pink and wet. No goiter. Scattered rhonchi is heard. Cardiac: RR, no thrill, no gallop. Abdomen is soft, obese and distended. BS is +. Ext reveal 2+ edema bilaterally. DP is 2+ bilateral PMH reportedly includes Morbid obesity, Asthma (with previous intubations), Autism, Schizophrenia and ANNETTE. Smokes Marijuana and drinks alcohol WBC: 11.6 to 11.2 to 14.2 to 12.2 to 13.3 to 16.4 to 17.5 to 15.3 to 13.8 to 15.7 to 13.8 - 22.2 to 22.3 to 16.3 - 20.1 D-dimer: 0.43 (wnl) Creat: 0.73 - 0.70 - 0.67 - 0.76 - 0.71 - 0.70 - 0.69 - 0.59 - 0.60 - 0.52 - 0.50 - 0.47 - 0.47 - 0.62 - 0.42 - 0.39 - 0.51 - 0.52 - 0.46 - 0.38 - 0.41 - 0.43 - 0.41 K: 4.1 - 4.3 - 4.1 - 4.2 - 4.0 - 4.1 - 4.1 - 3.9 - 4.0 - 3.8 - 4.3 - 4.7 - 4.4 - 4.4 - 4.3 - 4.3 - 4.1 - 3.6 - 4.9 - 4.6 - 4.4 BNP: 561.97 - 173.31 Trop (high sensitive): 61 - 62 - 131 - 132 - 91 - 82 TSH: 0.48 Urine toxicology was positive for Cannabinoids and Benzodiazpin Chest xry revealed: FINDINGS: Lines and Tubes: None Lungs: Obscuration of the left hemidiaphragm Diffuse interstitial prominence. No pneumothorax. Cardiomediastinal contours: Moderate cardiomegaly Bones: No acute osseous abnormality. IMPRESSION: Moderate cardiomegaly with findings suggestive of congestive heart failure. Possible left-sided pleural effusion. Repeat chest xry revealed: Endotracheal tube projects terminating 1.8 cm superior to the zbigniew. Enteric tube is projecting below the GE junction without visualization of the port or tip. Low lung volumes with bronchovascular crowding. Possible small left-sided pleural effusion and/or atelectasis. No pneumothorax. Repeat chest xry revealed: Cardiomediastinal silhouette is enlarged. There is increased pulmonary vascular congestion, similar prior examination. Obscuration of the left hemidiaphragm may be on the basis of technique versus small pleural effusion. No discrete pneumothorax. Endotracheal tube and enteric tube are redemonstrated. Left IJ catheter tip is likely at the region of the brachiocephalic vein. Repeat chest xry revealed: FINDINGS: Cardiomediastinal silhouette is enlarged. There is increased pulmonary vascular congestion, similar prior examination. Obscuration of the left hemidiaphragm may be on the basis of technique versus small pleural effusion. No discrete pneumothorax. Endotracheal tube and enteric tube are redemonstrated. Left IJ catheter tip is likely at the region of the brachiocephalic vein. IMPRESSION: NO INTERVAL CHANGE. Repeat chest xry revealed: IMPRESSION: Improving pulmonary edema compared to prior exam. Repeat chest xry revealed: IMPRESSION: stable pulmonary edema compared to prior exam. Repeat chest xry revealed: IMPRESSION: Lines and tubes in satisfactory position. No significant interval change. Repeat chest xry revealed: IMPRESSION: Lines and tubes in satisfactory position. No significant interval change. Repeat chest xry revealed: IMPRESSION: Lines and tubes in satisfactory position. No significant interval change. Repeat chest xry: IMPRESSION: 1. Stable position of the support lines and tubes. 2. No significant change in diffuse bilateral airspace opacities. Repeat chest xry revealed: IMPRESSION: 1. Endotracheal tube terminates 6.4 symbol the zbigniew. 2. Bilateral airspace disease unchanged. Repeat chest xry revealed: IMPRESSION: 1. Endotracheal tube 4.1 cm above the zbigniew. 2. OG tube not visualized AND may BE IN THE RIGHT MAINSTEM BRONCHUS RECOMMEND REMOVAL AND REPOSITIONING WITH REPEAT CHEST X-RAY. Repeat chest xry revealed: FINDINGS: Endotracheal tube in place 4.4 cm above the zbigniew. Left internal jugular catheter in place in the superior vena cava. Cardiomegaly is noted with pulmonary vascular congestion findings may represent congestive failure other possibility such as pneumonia are in the differential. IMPRESSION: 1. Cardiomegaly with findings of pulmonary vascular congestion. Findings may represent congestive failure or pneumonia. Repeat chest xry revealed: Lines and Tubes: The endotracheal tube terminates 3.1 cm above the zbigniew. Left central venous catheter terminates in the superior vena cava. Enteric tube is visualized to the mid chest but not visualized below the left hemidiaphragm. Lungs: Bilateral airspace disease. Pleura: No effusion. No pneumothorax. Cardiomediastinal contours: Stable cardiomegaly. Bones: No acute osseous abnormality. IMPRESSION: 1. Enteric tube not visualized below the left hemidiaphragm. 2. Bilateral airspace disease similar to prior exam. Repeat chest xry revealed: Limited evaluation given patient positioning. The heart appears markedly enlarged. There are low lung volumes with moderate alveolar airspace opacities suggesting pulmonary edema. No discrete pneumothorax. Endotracheal tube appear stable. Enteric tube is not well visualized. Repeat chest xry revealed: IMPRESSION: 1. Stable appearance of the support lines and tubes. 2. Pulmonary opacities, unchanged. Repeat chest xry revealed: Evaluation limited by patient body habitus. Lines and Tubes: The endotracheal tube terminates 5.7 cm above the zbigniew. Left central venous catheter is unchanged in position. Enteric tube courses below the left hemidiaphragm and outside the field of view. Lungs: Bilateral airspace disease similar to prior study. Pleura: Possible bilateral pleural effusions. No pneumothorax. Cardiomediastinal contours: Stable. Bones: No acute osseous abnormality. IMPRESSION: 1. No significant interval change. Repeat chest xry revealed: IMPRESSION: Right lower lobe pneumonia. Repeat chest xry revealed: IMPRESSION: 1. Right middle lobe consolidation which may represent pneumonia. 2. Pulmonary congestion. 3. Obscuration of the left hemidiaphragm for which left pleural effusion is not excluded. 4. Stable cardiomegaly. Repeat chest xry revealed: Low lung volumes limits evaluation. Bilateral airspace opacities are unchanged. Likely small left pleural effusion. No pneumothorax visualized. Stable satisfactory positioning of the endotracheal tube and enteric tube. Stable positioning of the left internal jugular central venous catheter, with the tip at the level of the left brachiocephalic vein. IMPRESSION: No significant interval change as detailed above. KUB revealed: Impression: 1. Nonobstructive bowel gas pattern. 2. Enteric tube overlying the plane of the stomach. 3. No visualized renal calculi. Venous duplex of lower ext revealed: Impression: 1. No right or left femoropopliteal venous thrombosis. 2. Left common femoral vein and proximal superficial femoral vein are not visible and therefore thrombus can not be excluded in those areas. EKG revealed: Sinus tachycardia with non-specific STT changes Tele reveals Sinus rhythm Echocardiogram revealed: Technically limited study secondary to poor acoustic windows. Left ventricle: Left ventricle was normal-sized with normal systolic function. LVEF was 60-65%. There was no gross wall motion abnormality observed. Right ventricle was not well visualized but it was dilated. Left atrium was normal-sized. Right atrium was not well visualized. Aortic valve was trileaflet and normal. There was no aortic insufficiency/stenosis. There was trivial mitral and tricuspid regurgitation. There was mild pulmonary valve insufficiency. As there was no good tricuspid regurgitation jet, right ventricular systolic pressure could not be estimated. There was no pericardial effusion. Patient is 28 year old male with history of morbid obesity who presented with respiratory failure. Does have history of Asthma and reportedly has been intubated for it before. Trop has been mildly elevated. ACS is less likely and increase in troponin most likely represents demand physiology. Still, component of type 1 physiology cannot be completely ruled out. Echo revealed dilated RV. As there was no good TR jet, RVSP could not be estimated. Pulmonary Hypertension cannot be ruled out. Pulmonary on board. On sedation. ID on board Acute respiratory failure Asthma Asthma exacerbation Morbid obesity Abnormal trop Questionable heart failure, acute Pneumonia s/p bronchoscopy Cardiac suggestion for management: Manage in ICU IV diuresis Follow up electrolytes and kidney function test and correct abnormalities. Keep potassium above 4 and magnesium above 2 Lovenox ASA Follow up vital signs and correct hyper/hypotension. If needed add pressure support to keep MAP above 65 mmHg Pulmonary follow up Further evaluation and management depends on the above and clinical course A total of 75 minutes was spent reviewing the patient record, examining the patient, making a diagnostic and therapeutic plan, discussing this plan with medical personnel, following up on diagnostic studies and following the patient for clinical stability excluding any and all procedures. At least 50% of this time was spent in direct, [id number] contact. Thank you for allowing me to participate in this patient's care. Further recommendations will depend on patient's clinical course. Please do not hesitate to contact me if you have any questions or concerns. This medical document was created using electronic medical record system with [employer] computerized dictation system. Although this document has been carefully reviewed, there may still be some phonetic and typographical errors. These areas are purely typographical due to the imperfection of the software programs, and do not reflect any compromise in the patient's medical care. Dietary Evaluation Review Comments: Current Jevity 1.2 @60ml/hr TF is meeting pt's need for protein at 60% for energy at 117% Continue monitor nutrition progress of nutrition support to meet 75% of his needs. Advance to a cardiac diet, texture as tolerated when medically feasible. Expected Outcomes/Goals: gradual weight loss Plan discussed with: Other (nurse) PARRIS MCKINNON MD Feb 09, 2024 17:31
[2024-02-09] MEDS: LACTULOSE 20Gm/30ML SOLN PO SCH (17:49)
--- NOTE | 2024-02-09 20:08 | DVHPN2 ---
Progress Note - Dictate Date Seen: Feb 09, 2024 Medical Necessity Reason Pt with a Central, PICC or Fol: Yes The following are medically ne: Reyes Catheter Reason for reyes catheter: Strict I&O Subjective Patient remains intubated. No new acute complaints noted at this time. WBC trending down fio2 30% Patient has not been able to have sedation weaned off and to proceed with CPAP due to patient's severe anxiety. vital signs Vital Sign Date Time Temp Pulse Resp B/P (MAP) Pulse Ox O2 Delivery O2 Flow Rate FiO2 02/09/24 19:28 74 28 127/72 (90) 96 30 02/09/24 18:14 99.3 210.7 02/09/24 18:00 Mechanical Ventilator+ Total Intake and Output 02/08/24 02/08/24 02/09/24 15:00 23:00 07:00 Intake Total 1148.204 ml 1176.239 ml 1019.437 ml Output Total 2725 ml 2700 ml Balance 1148.204 ml -1548.761 ml -1680.563 ml medications Current Medications Medications Dose Ordered Sig/Reji Route Start Time Stop Time Status Last Admin Dose Admin Ondansetron HCl 4 mg Q4HP PRN IV 01/19/24 20:15 Pantoprazole Sodium 40 mg DAILY IV 01/20/24 10:00 02/09/24 09:05 40 MG Nitroglycerin 0.4 mg Q5MINP PRN SL 01/19/24 20:15 Midazolam HCl 50 ml @ 1 mls/hr Q24H IV 01/19/24 21:30 02/09/24 14:46 11 MLS/HR Aspirin 81 mg DAILY NG 01/20/24 10:00 02/09/24 09:05 81 MG Atorvastatin Calcium 40 mg HS PO 01/20/24 22:00 02/08/24 21:39 40 MG Latanoprost 1 drop QPM EACHEYE 01/20/24 18:00 02/09/24 17:50 1 DROP Patient Own Medication 400 mg MONTHLY IM 01/20/24 11:30 Lisinopril 20 mg DAILY PO 01/20/24 11:30 02/09/24 09:05 20 MG Nitroglycerin 250 ml @ 1.5 mls/hr Q24H IV 01/20/24 20:30 Albuterol 2.5 mg Q4HR NEB 01/20/24 22:00 02/09/24 18:03 2.5 MG Ipratropium [place] 0.5 mg Q4HR NEB 01/20/24 22:00 02/09/24 18:03 0.5 MG Enteral Nutritional Formula 1,000 ml 60ML/HR GT 01/22/24 14:00 02/01/24 20:06 1,000 ML Vancomycin HCl 300 ml @ 200 mls/hr Q8H IV 01/28/24 02:00 Cancel Metoclopramide HCl 10 mg Q8HR IV 01/28/24 14:00 02/09/24 14:52 10 MG Docusate Sodium 100 mg BID GT 01/28/24 22:00 02/09/24 09:05 100 MG Hydralazine HCl 10 mg Q6HP PRN IV 01/30/24 13:15 02/05/24 02:46 10 MG Acetaminophen 650 mg Q4HP PRN PO 01/31/24 07:30 02/01/24 12:21 650 MG Furosemide 40 mg BIDD IV 02/02/24 10:30 02/09/24 17:50 40 MG Propofol 100 ml @ 4.599 mls/ hr [id number] IV 02/02/24 22:45 02/09/24 08:34 32.193 MLS/HR Amino Acids 0 ml @ 0 mls/hr PER PHARMACY IV 02/03/24 12:15 Cefepime HCl 50 ml @ 12.5 mls/hr Q8HR IV 02/04/24 14:00 02/09/24 14:52 12.5 MLS/HR Diagnostic Test (Pha) 1 strip Q6HR 02/05/24 18:00 02/09/24 17:50 1 STRIP Dextrose 50 ml UD PRN IV 02/05/24 13:15 Insulin Human Regular Q6HR SC 02/05/24 15:15 02/09/24 17:48 12 UNITS Fentanyl Citrate 250 ml @ 2.5 mls/hr Q24H IV 02/07/24 08:15 02/09/24 08:07 25 MLS/HR Methylprednisolone Sodium Succinate 40 mg Q8HR IV 02/07/24 22:00 02/09/24 14:52 40 MG Quetiapine Fumarate 100 mg BID PO 02/07/24 22:00 02/09/24 09:05 100 MG Sodium Chloride 60 meq/Sodium Phosphate 40 meq/ Potassium Chloride 60 meq/ Magnesium Sulfate 14 meq/ Multivitamins 10 ml/Insulin Human Regular 32 units/ Amino Acids/ Dextrose/Purified Water 1,268.82 ml @ 53 mls/hr [id number] IV 02/08/24 22:00 02/09/24 21:59 02/08/24 21:46 53 MLS/HR Insulin Glargine 30 units BID@1000,2200 SC 02/08/24 22:00 02/09/24 09:17 30 UNITS Rocuronium [place] 1000 mg/ Sodium Chloride 250 ml @ 20.832 mls/ hr Q12H1M IV 02/08/24 14:15 02/09/24 02:19 12.499 MLS/HR Sodium Chloride 80 meq/Sodium Phosphate 20 meq/ Potassium Chloride 80 meq/ Magnesium Sulfate 12 meq/ Multivitamins 10 ml/Insulin Human Regular 36 units/ Amino Acids/ Dextrose/Purified Water 1,378.36 ml @ 57 mls/hr [id number] IV 02/09/24 22:00 02/10/24 21:59 Lactulose 30 ml Q6HR PO 02/09/24 18:00 02/09/24 17:49 30 ML Dexmedetomidine HCl 400 mcg/ Dextrose 100 ml @ 7.25 mls/hr [id number] IV 02/09/24 18:00 objective Gen.: Patient lying in bed in medical ICU. Sedated, intubated on mechanical ventilator. Head: Normocephalic, atraumatic. Eyes: PERRLA. Ears: Normal external anatomy. Throat: Endotracheal tube and orogastric tube in place. Neck: Supple, trachea midline. Chest: Decreased air entry bilaterally. No wheezing. Bibasilar crackles. Cardiovascular: Positive S1, positive S2. Regular rate and rhythm. Abdomen: . Soft, nontender, nondistended. : Reyes in place. Normal external genitalia. Rectal: Deferred. Skin: Warm, dry. Intact. Extremities: No lower extremity edema. Neuro: Sedated. laboratory and microbiology Laboratory Tests 02/09/24 03:00 02/07/24 08:04 Test 02/09/24 03:00 Range/Units Serum Glucose 331 H 74-106 mg/dL Assessment/Plan Patient is a 28-year-old male presented to the hospital with: # thrombocytopenia Multifocal pneumonia: [place] ARDS Acute hypoxic respiratory failure On mechanical ventilator Coag negative staphylococcus bacteremia leucocytosis Acute exacerbation of asthma Elevated Troponin Schizophrenia Autism Cannabinoid Use Morbid obesity BMI 60.5 Pulmonary edema Recommendations: reviewed cultures since admission listed below Culture History: 01/21, Blood culture showed Growth Of Coagulase Negative Staphylococcus 01/30, Urine culture: No growth monitored 01/30, Sputum culture showed Klebsiella pneumoniae 02/04: BAL cx [place] MRSA screen neg 02/05 chest x-ray : Right middle lobe consolidation which may represent pneumonia and Pulmonary congestion. Obscuration of the left hemidiaphragm for which left pleural effusion is not excluded. Stable cardiomegaly. antibiotics history Vancomycin 01/22- Linezolid 01/27- 02/03 Zosyn: 01/31- 02/03 blood cx seems to look contaminations, + 1/2. discontinued Linezolid ( also platelets dropping) CXR shows multifocal infiltrate suggestive of ARDS, he is requiring high FIO2, possibly associated with pulm edema and bacterial pneumonia [place] is pansensitive, switched to cefepime. ( total duration of antibiotics 7-10 days including zosyn which was started on 01/31 pulmonary is on board, s/p bronchoscopy 02/04: mucous plugging, BAL cx grew Klebsiella lasix prognosis is very poor. critical time 35 minutes spent. Thank you for consult and for giving an opportunity to take care of this patient. Dietary Evaluation Review Comments: Current Jevity 1.2 @60ml/hr TF is meeting pt's need for protein at 60% for energy at 117% Continue monitor nutrition progress of nutrition support to meet 75% of his needs. Advance to a cardiac diet, texture as tolerated when medically feasible. Expected Outcomes/Goals: gradual weight loss Plan discussed with: EBEN Singh MD Feb 09, 2024 20:08
[2024-02-09] MEDS: TPN PER PHARMACY IV NR (21:29)
--- NOTE | 2024-02-09 23:32 | DVHPN2 ---
Progress Note - Dictate Date Seen: Feb 09, 2024 Medical Necessity Reason Pt with a Central, PICC or Fol: Yes The following are medically ne: Reyes Catheter Reason for reyes catheter: Strict I&O Subjective Patient seen and examined at bedside. Sedated, intubated on mechanical ventilator. Overnight events reviewed. vital signs Vital Sign Date Time Temp Pulse Resp B/P (MAP) Pulse Ox O2 Delivery O2 Flow Rate FiO2 02/09/24 22:16 75 28 114/60 (78) 94 30 02/09/24 20:00 Mechanical Ventilator+ 02/09/24 18:14 99.3 210.7 Total Intake and Output 02/08/24 02/08/24 02/09/24 15:00 23:00 07:00 Intake Total 1148.204 ml 1176.239 ml 1019.437 ml Output Total 2725 ml 2700 ml Balance 1148.204 ml -1548.761 ml -1680.563 ml medications Current Medications Medications Dose Ordered Sig/Reji Route Start Time Stop Time Status Last Admin Dose Admin Ondansetron HCl 4 mg Q4HP PRN IV 01/19/24 20:15 Pantoprazole Sodium 40 mg DAILY IV 01/20/24 10:00 02/09/24 09:05 40 MG Nitroglycerin 0.4 mg Q5MINP PRN SL 01/19/24 20:15 Midazolam HCl 50 ml @ 1 mls/hr Q24H IV 01/19/24 21:30 02/09/24 14:46 11 MLS/HR Aspirin 81 mg DAILY NG 01/20/24 10:00 02/09/24 09:05 81 MG Atorvastatin Calcium 40 mg HS PO 01/20/24 22:00 02/09/24 21:17 40 MG Latanoprost 1 drop QPM EACHEYE 01/20/24 18:00 02/09/24 17:50 1 DROP Patient Own Medication 400 mg MONTHLY IM 01/20/24 11:30 Lisinopril 20 mg DAILY PO 01/20/24 11:30 02/09/24 09:05 20 MG Nitroglycerin 250 ml @ 1.5 mls/hr Q24H IV 01/20/24 20:30 Albuterol 2.5 mg Q4HR NEB 01/20/24 22:00 02/09/24 22:16 2.5 MG Ipratropium [place] 0.5 mg Q4HR NEB 01/20/24 22:00 02/09/24 22:16 0.5 MG Enteral Nutritional Formula 1,000 ml 60ML/HR GT 01/22/24 14:00 02/01/24 20:06 1,000 ML Vancomycin HCl 300 ml @ 200 mls/hr Q8H IV 01/28/24 02:00 Cancel Metoclopramide HCl 10 mg Q8HR IV 01/28/24 14:00 02/09/24 21:17 10 MG Docusate Sodium 100 mg BID GT 01/28/24 22:00 02/09/24 21:17 100 MG Hydralazine HCl 10 mg Q6HP PRN IV 01/30/24 13:15 02/05/24 02:46 10 MG Acetaminophen 650 mg Q4HP PRN PO 01/31/24 07:30 02/01/24 12:21 650 MG Furosemide 40 mg BIDD IV 02/02/24 10:30 02/09/24 17:50 40 MG Amino Acids 0 ml @ 0 mls/hr PER PHARMACY IV 02/03/24 12:15 Cefepime HCl 50 ml @ 12.5 mls/hr Q8HR IV 02/04/24 14:00 02/09/24 21:17 12.5 MLS/HR Diagnostic Test (Pha) 1 strip Q6HR 02/05/24 18:00 02/09/24 17:50 1 STRIP Dextrose 50 ml UD PRN IV 02/05/24 13:15 Insulin Human Regular Q6HR SC 02/05/24 15:15 02/09/24 17:48 12 UNITS Fentanyl Citrate 250 ml @ 2.5 mls/hr Q24H IV 02/07/24 08:15 02/09/24 21:30 10 MLS/HR Methylprednisolone Sodium Succinate 40 mg Q8HR IV 02/07/24 22:00 02/09/24 21:18 40 MG Quetiapine Fumarate 100 mg BID PO 02/07/24 22:00 02/09/24 21:17 100 MG Insulin Glargine 30 units BID@1000,2200 SC 02/08/24 22:00 02/09/24 21:32 30 UNITS Rocuronium [place] 1000 mg/ Sodium Chloride 250 ml @ 20.832 mls/ hr Q12H1M IV 02/08/24 14:15 02/09/24 02:19 12.499 MLS/HR Sodium Chloride 80 meq/Sodium Phosphate 20 meq/ Potassium Chloride 80 meq/ Magnesium Sulfate 12 meq/ Multivitamins 10 ml/Insulin Human Regular 36 units/ Amino Acids/ Dextrose/Purified Water 1,378.36 ml @ 57 mls/hr [id number] IV 02/09/24 22:00 02/10/24 21:59 02/09/24 21:29 57 MLS/HR Lactulose 30 ml Q6HR PO 02/09/24 18:00 02/09/24 17:49 30 ML Dexmedetomidine HCl 400 mcg/ Dextrose 100 ml @ 7.25 mls/hr [id number] IV 02/09/24 18:00 objective Gen.: Patient lying in bed in medical ICU. Sedated, intubated on mechanical ventilator. Head: Normocephalic, atraumatic. Eyes: PERRLA. Ears: Normal external anatomy. Throat: Endotracheal tube and orogastric tube in place. Neck: Supple, trachea midline. Chest: Transmitted breath sounds bilaterally. Decreased air entry bilaterally. No wheezing. Bibasilar crackles. Cardiovascular: Positive S1, positive S2. Regular rate and rhythm. Abdomen: Positive bowel sounds in all 4 quadrants. Soft, nontender, nondistended. : Reyes in place. Normal external genitalia. Rectal: Deferred. Skin: Warm, dry. Intact. Extremities: 2+ radial pulses bilaterally. No lower extremity edema. Neuro: Sedated. laboratory and microbiology Laboratory Tests 02/09/24 03:00 02/07/24 08:04 Test 02/09/24 03:00 Range/Units Serum Glucose 331 H 74-106 mg/dL Assessment/Plan Impression: Acute hypoxic respiratory failure On mechanical ventilator Acute exacerbation of asthma Elevated Troponin Schizophrenia Autism Cannabinoid Use Morbid obesity BMI 60.5 Pulmonary edema Events: Remains on vent support On AC mode with RR 28, VT 500, PEEP 8, FiO2 30% Sedated on Versed, Fentanyl Remains on Rocuronium drip for paralytic. Leukocytosis - monitor WBC Bronchoscopy w/ RML BAL was performed on 02/05/24. Cultures grew Klebsiella pneumoniae. ABG reviewed. Compensated. CXR reviewed. Seroquel 100 mg q.12 hours. Continue bronchodilators IV steroids Continue antibiotics - on cefepime TPN for nutritional support Diurese to euvolemia - Lasix BID Monitor renal function Monitor electrolytes. Supplement as necessary. Monitor ins and outs. Taper paralytic drip as tolerated. Recommend trach/PEG to liberate from vent. Family declines. We had trouble tapering down paralytic as pt became agitated. Labs and imaging reviewed. Rest of plan as noted below. Plan: s/p intubation on mechanical ventilator. On AC mode with RR 28, VT 500, PEEP 8, FiO2 30% Titrate FIO2 to keep O2 saturation above 90%. VAP bundle. Daily ABG and CXR while intubated Sedate for ventilator synchrony Pt does not tolerate turns. Derecruitment. Turn carefully. Elevated Troponin - Cardiology recs appreciated. Continue bronchodilators Antibiotics. F/u cultures. Pressors if necessary for hemodynamic support Titrate to keep mean arterial pressure greater than 65 mmHg. Currently off pressors, hemodynamically stable. Diurese to euvolemia Monitor renal function Monitor electrolytes. Supplement as necessary. Monitor ins and outs. Diet and lifestyle modifications for weight reduction Morbid obesity - complicates all care GI prophylaxis. DVT prophylaxis. Prognosis: Poor given patient's multiple co-morbidities. Condition: Critical Rest of plan per hospitalist and other consultants. A total of 35 minutes of critical care time was spent reviewing the patient record, examining the patient, making a diagnostic and therapeutic plan, discussing this plan with the medical personnel, following up on diagnostic studies and following the patient for clinical stability excluding any and all procedures. At least 50% of this time was spent in direct, [id number] contact. Thank you Irma Velasquez NP, for allowing me to participate in this patient's care. Further recommendations will depend on the patient's clinical course. Please do not hesitate to contact me if you have any questions or concerns. This medical document was created using an electronic medical record system with [employer] dictation system. Although these documentations are being carefully reviewed, there may still be some phonetic and typographical changes. The errors are purely typographical, due to imperfection on the software program, and do not reflect any compromise in the patient's medical care. Dietary Evaluation Review Comments: Current Jevity 1.2 @60ml/hr TF is meeting pt's need for protein at 60% for energy at 117% Continue monitor nutrition progress of nutrition support to meet 75% of his needs. Advance to a cardiac diet, texture as tolerated when medically feasible. Expected Outcomes/Goals: gradual weight loss Plan discussed with: Other (RN, RT, READING PROFESSOR) Critical Care Time(min): 35 VERÓNICA MERCER MD Feb 09, 2024 23:32
[2024-02-10] VITALS (108 sets, daily range): BP systolic 80–153; BP diastolic 29–99; PULSE 72–128; RESP 19–34; TEMP 99–99.9; O2SAT 87–100
[2024-02-10 04:28] LABS: Albumin 3.7 g/dL (3.2-4.8); Anion Gap 6 (5-15); BUN/Creatinine Ratio 54.5 (10.0-20.0); Calcium 9.4 mg/dL (8.7-10.4); Chloride 100 mmol/L (98-107); Potassium 3.9 mmol/L (3.5-5.1); Sodium 137 mmol/L (136-145); Total Protein 6.4 g/dL (5.7-8.2); Triglycerides 146 mg/dL (< 150)
[2024-02-10 05:03] LABS: Alanine Aminotransferase 162 U/L (7-40); Alkaline Phosphatase 126 U/L (46-116); Aspartate Aminotransferase 65 U/L (13-40); Bilirubin, Total 2.2 mg/dL (0.2-1.0); Blood Urea Nitrogen 24 mg/dL (9-23); Carbon Dioxide 31 mmol/L (20-31); Glucose 238 mg/dL (74-106)
--- NOTE | 2024-02-10 05:07 | DVH ---
CHEST RADIOGRAPH Indication: PT INTUBATED Technique: Single frontal view of the chest was obtained COMPARISON: XY CHEST PORTABLE on DOS: 02/08/24, XY CHEST PORTABLE on DOS: 02/06/24, XY CHEST XRAY 1 V IEW on DOS: 02/05/24, XY CHEST PORTABLE on DOS: 02/03/24, XY CHEST PORTABLE on DOS: 02/02/24 FINDINGS: Lines and Tubes: Endotracheal tube and left central venous catheter in satisfactory position. Lungs: Multifocal airspace disease. Pleura: No effusion. No pneumothorax. Cardiomediastinal contours: Cardiomegaly Bones: Unremarkable IMPRESSION: Lines and tubes in satisfactory position. No significant interval change.
[2024-02-10 06:12] LABS: Basophils # (auto) 0 10 ^3/uL (0-0.2); Basophils % (auto) 0.1 % (0.0-2.0); Eosinophils # (auto) 0 10 ^3/uL (0-0.8); Mean Corpuscular Volume 72.6 fL (80.0-100.0); Monocytes # (auto) 0.5 10 ^3/uL (0-1.3)
[2024-02-10 06:14] LABS: Eosinophils % (auto) 0.2 % (0.0-7.0); Hematocrit 40.9 % (41.0-53.0); Hemoglobin 12.5 g/dL (13.5-17.5); Lymphocytes # (auto) 0.6 10 ^3/uL (0.4-5.4); Lymphocytes % (auto) 2.9 % (10.0-50.0); Mean Corpuscular Hemoglobin 22.2 pg (28.0-32.0); Mean Corpuscular Hgb Conc. 30.5 g/dL (32.0-36.0); Monocytes % (auto) 2.6 % (0.0-12.0); Neutrophils # (auto) 19.5 10 ^3/uL (1.6-8.6); Neutrophils % (auto) 94.2 % (37.0-80.0); Platelet Count (auto) 164 10^3/uL (140-450); Red Blood Cells 5.63 10^6/uL (4.5-5.90); Red Cell Distribution Width 18.6 % (11.8-14.3); White Blood Cell 20.7 10^3/uL (4.4-10.8)
--- NOTE | 2024-02-10 07:41 | DVHPN2 ---
Progress Note - Dictate Date Seen: Feb 10, 2024 Medical Necessity Reason Pt with a Central, PICC or Fol: Yes The following are medically ne: Reyes Catheter Reason for reyes catheter: Strict I&O vital signs Vital Sign Date Time Temp Pulse Resp B/P (MAP) Pulse Ox O2 Delivery O2 Flow Rate FiO2 02/10/24 07:15 99.3 117 22 144/99 (114) 93 210.7 02/10/24 06:00 Mechanical Ventilator+ 30 30 Total Intake and Output 02/09/24 02/09/24 02/10/24 15:00 23:00 07:00 Intake Total 1024.335 ml 679.5 ml 651 ml Output Total 2700 ml 2750 ml Balance 1024.335 ml -2020.5 ml -2099 ml medications Current Medications Medications Dose Ordered Sig/Reji Route Start Time Stop Time Status Last Admin Dose Admin Ondansetron HCl 4 mg Q4HP PRN IV 01/19/24 20:15 Pantoprazole Sodium 40 mg DAILY IV 01/20/24 10:00 02/09/24 09:05 40 MG Nitroglycerin 0.4 mg Q5MINP PRN SL 01/19/24 20:15 Midazolam HCl 50 ml @ 1 mls/hr Q24H IV 01/19/24 21:30 02/10/24 01:49 4 MLS/HR Aspirin 81 mg DAILY NG 01/20/24 10:00 02/09/24 09:05 81 MG Atorvastatin Calcium 40 mg HS PO 01/20/24 22:00 02/09/24 21:17 40 MG Latanoprost 1 drop QPM EACHEYE 01/20/24 18:00 02/09/24 17:50 1 DROP Patient Own Medication 400 mg MONTHLY IM 01/20/24 11:30 Lisinopril 20 mg DAILY PO 01/20/24 11:30 02/09/24 09:05 20 MG Nitroglycerin 250 ml @ 1.5 mls/hr Q24H IV 01/20/24 20:30 Albuterol 2.5 mg Q4HR NEB 01/20/24 22:00 02/10/24 05:56 2.5 MG Ipratropium [place] 0.5 mg Q4HR NEB 01/20/24 22:00 02/10/24 05:57 0.5 MG Enteral Nutritional Formula 1,000 ml 60ML/HR GT 01/22/24 14:00 02/01/24 20:06 1,000 ML Vancomycin HCl 300 ml @ 200 mls/hr Q8H IV 01/28/24 02:00 Cancel Metoclopramide HCl 10 mg Q8HR IV 01/28/24 14:00 02/10/24 05:28 10 MG Docusate Sodium 100 mg BID GT 01/28/24 22:00 02/09/24 21:17 100 MG Hydralazine HCl 10 mg Q6HP PRN IV 01/30/24 13:15 02/05/24 02:46 10 MG Acetaminophen 650 mg Q4HP PRN PO 01/31/24 07:30 02/01/24 12:21 650 MG Furosemide 40 mg BIDD IV 02/02/24 10:30 02/10/24 05:28 40 MG Amino Acids 0 ml @ 0 mls/hr PER PHARMACY IV 02/03/24 12:15 Cefepime HCl 50 ml @ 12.5 mls/hr Q8HR IV 02/04/24 14:00 02/10/24 05:28 12.5 MLS/HR Diagnostic Test (Pha) 1 strip Q6HR 02/05/24 18:00 02/10/24 05:29 1 STRIP Dextrose 50 ml UD PRN IV 02/05/24 13:15 Insulin Human Regular Q6HR SC 02/05/24 15:15 02/10/24 06:24 8 UNITS Fentanyl Citrate 250 ml @ 2.5 mls/hr Q24H IV 02/07/24 08:15 02/09/24 21:30 10 MLS/HR Methylprednisolone Sodium Succinate 40 mg Q8HR IV 02/07/24 22:00 02/10/24 05:33 40 MG Quetiapine Fumarate 100 mg BID PO 02/07/24 22:00 02/09/24 21:17 100 MG Insulin Glargine 30 units BID@1000,2200 SC 02/08/24 22:00 02/09/24 21:32 30 UNITS Rocuronium [place] 1000 mg/ Sodium Chloride 250 ml @ 20.832 mls/ hr Q12H1M IV 02/08/24 14:15 02/09/24 02:19 12.499 MLS/HR Sodium Chloride 80 meq/Sodium Phosphate 20 meq/ Potassium Chloride 80 meq/ Magnesium Sulfate 12 meq/ Multivitamins 10 ml/Insulin Human Regular 36 units/ Amino Acids/ Dextrose/Purified Water 1,378.36 ml @ 57 mls/hr [id number] IV 02/09/24 22:00 02/10/24 21:59 02/09/24 21:29 57 MLS/HR Lactulose 30 ml Q6HR PO 02/09/24 18:00 02/10/24 05:27 30 ML Dexmedetomidine HCl 400 mcg/ Dextrose 100 ml @ 7.25 mls/hr [id number] IV 02/09/24 18:00 laboratory and microbiology Laboratory Tests 02/10/24 03:13 Test 02/10/24 03:13 Range/Units Serum Glucose 238 H 74-106 mg/dL Assessment/Plan Patient is 28 year old morbidly obese male who presented to ED with shortness of breath. He has been intubated for respiratory failure and in on vent. support. Information was obtained by reviewing the chart and communicating with staff. Cardiology is involved for cardiac aspects of care. There is no report of chest pain prior to presentation. Reportedly, patient has been intubated for retirement previously for Asthma in other institution. Intubated and on vent support. Morbidly obese. Does have right sided subclavian access. No JVD. Mucosa is pink and wet. No goiter. Scattered rhonchi is heard. Cardiac: RR, no thrill, no gallop. Abdomen is soft, obese and distended. BS is +. Ext reveal 2+ edema bilaterally. DP is 2+ bilateral PMH reportedly includes Morbid obesity, Asthma (with previous intubations), Autism, Schizophrenia and ANNETTE. Smokes Marijuana and drinks alcohol WBC: 11.6 to 11.2 to 14.2 to 12.2 to 13.3 to 16.4 to 17.5 to 15.3 to 13.8 to 15.7 to 13.8 - 22.2 to 22.3 to 16.3 - 20.1 D-dimer: 0.43 (wnl) Creat: 0.73 - 0.70 - 0.67 - 0.76 - 0.71 - 0.70 - 0.69 - 0.59 - 0.60 - 0.52 - 0.50 - 0.47 - 0.47 - 0.62 - 0.42 - 0.39 - 0.51 - 0.52 - 0.46 - 0.38 - 0.41 - 0.43 - 0.41 K: 4.1 - 4.3 - 4.1 - 4.2 - 4.0 - 4.1 - 4.1 - 3.9 - 4.0 - 3.8 - 4.3 - 4.7 - 4.4 - 4.4 - 4.3 - 4.3 - 4.1 - 3.6 - 4.9 - 4.6 - 4.4 BNP: 561.97 - 173.31 Trop (high sensitive): 61 - 62 - 131 - 132 - 91 - 82 TSH: 0.48 Urine toxicology was positive for Cannabinoids and Benzodiazpin Chest xry revealed: FINDINGS: Lines and Tubes: None Lungs: Obscuration of the left hemidiaphragm Diffuse interstitial prominence. No pneumothorax. Cardiomediastinal contours: Moderate cardiomegaly Bones: No acute osseous abnormality. IMPRESSION: Moderate cardiomegaly with findings suggestive of congestive heart failure. Possible left-sided pleural effusion. Repeat chest xry revealed: Endotracheal tube projects terminating 1.8 cm superior to the zbigniew. Enteric tube is projecting below the GE junction without visualization of the port or tip. Low lung volumes with bronchovascular crowding. Possible small left-sided pleural effusion and/or atelectasis. No pneumothorax. Repeat chest xry revealed: Cardiomediastinal silhouette is enlarged. There is increased pulmonary vascular congestion, similar prior examination. Obscuration of the left hemidiaphragm may be on the basis of technique versus small pleural effusion. No discrete pneumothorax. Endotracheal tube and enteric tube are redemonstrated. Left IJ catheter tip is likely at the region of the brachiocephalic vein. Repeat chest xry revealed: FINDINGS: Cardiomediastinal silhouette is enlarged. There is increased pulmonary vascular congestion, similar prior examination. Obscuration of the left hemidiaphragm may be on the basis of technique versus small pleural effusion. No discrete pneumothorax. Endotracheal tube and enteric tube are redemonstrated. Left IJ catheter tip is likely at the region of the brachiocephalic vein. IMPRESSION: NO INTERVAL CHANGE. Repeat chest xry revealed: IMPRESSION: Improving pulmonary edema compared to prior exam. Repeat chest xry revealed: IMPRESSION: stable pulmonary edema compared to prior exam. Repeat chest xry revealed: IMPRESSION: Lines and tubes in satisfactory position. No significant interval change. Repeat chest xry revealed: IMPRESSION: Lines and tubes in satisfactory position. No significant interval change. Repeat chest xry revealed: IMPRESSION: Lines and tubes in satisfactory position. No significant interval change. Repeat chest xry: IMPRESSION: 1. Stable position of the support lines and tubes. 2. No significant change in diffuse bilateral airspace opacities. Repeat chest xry revealed: IMPRESSION: 1. Endotracheal tube terminates 6.4 symbol the zbigniew. 2. Bilateral airspace disease unchanged. Repeat chest xry revealed: IMPRESSION: 1. Endotracheal tube 4.1 cm above the zbigniew. 2. OG tube not visualized AND may BE IN THE RIGHT MAINSTEM BRONCHUS RECOMMEND REMOVAL AND REPOSITIONING WITH REPEAT CHEST X-RAY. Repeat chest xry revealed: FINDINGS: Endotracheal tube in place 4.4 cm above the zbigniew. Left internal jugular catheter in place in the superior vena cava. Cardiomegaly is noted with pulmonary vascular congestion findings may represent congestive failure other possibility such as pneumonia are in the differential. IMPRESSION: 1. Cardiomegaly with findings of pulmonary vascular congestion. Findings may represent congestive failure or pneumonia. Repeat chest xry revealed: Lines and Tubes: The endotracheal tube terminates 3.1 cm above the zbigniew. Left central venous catheter terminates in the superior vena cava. Enteric tube is visualized to the mid chest but not visualized below the left hemidiaphragm. Lungs: Bilateral airspace disease. Pleura: No effusion. No pneumothorax. Cardiomediastinal contours: Stable cardiomegaly. Bones: No acute osseous abnormality. IMPRESSION: 1. Enteric tube not visualized below the left hemidiaphragm. 2. Bilateral airspace disease similar to prior exam. Repeat chest xry revealed: Limited evaluation given patient positioning. The heart appears markedly enlarged. There are low lung volumes with moderate alveolar airspace opacities suggesting pulmonary edema. No discrete pneumothorax. Endotracheal tube appear stable. Enteric tube is not well visualized. Repeat chest xry revealed: IMPRESSION: 1. Stable appearance of the support lines and tubes. 2. Pulmonary opacities, unchanged. Repeat chest xry revealed: Evaluation limited by patient body habitus. Lines and Tubes: The endotracheal tube terminates 5.7 cm above the zbigniew. Left central venous catheter is unchanged in position. Enteric tube courses below the left hemidiaphragm and outside the field of view. Lungs: Bilateral airspace disease similar to prior study. Pleura: Possible bilateral pleural effusions. No pneumothorax. Cardiomediastinal contours: Stable. Bones: No acute osseous abnormality. IMPRESSION: 1. No significant interval change. Repeat chest xry revealed: IMPRESSION: Right lower lobe pneumonia. Repeat chest xry revealed: IMPRESSION: 1. Right middle lobe consolidation which may represent pneumonia. 2. Pulmonary congestion. 3. Obscuration of the left hemidiaphragm for which left pleural effusion is not excluded. 4. Stable cardiomegaly. Repeat chest xry revealed: Low lung volumes limits evaluation. Bilateral airspace opacities are unchanged. Likely small left pleural effusion. No pneumothorax visualized. Stable satisfactory positioning of the endotracheal tube and enteric tube. Stable positioning of the left internal jugular central venous catheter, with the tip at the level of the left brachiocephalic vein. IMPRESSION: No significant interval change as detailed above. Repeat chest xray revealed: IMPRESSION: Lines and tubes in satisfactory position. No significant interval change. KUB revealed: Impression: 1. Nonobstructive bowel gas pattern. 2. Enteric tube overlying the plane of the stomach. 3. No visualized renal calculi. Venous duplex of lower ext revealed: Impression: 1. No right or left femoropopliteal venous thrombosis. 2. Left common femoral vein and proximal superficial femoral vein are not visible and therefore thrombus can not be excluded in those areas. EKG revealed: Sinus tachycardia with non-specific STT changes Tele reveals Sinus rhythm Echocardiogram revealed: Technically limited study secondary to poor acoustic windows. Left ventricle: Left ventricle was normal-sized with normal systolic function. LVEF was 60-65%. There was no gross wall motion abnormality observed. Right ventricle was not well visualized but it was dilated. Left atrium was normal-sized. Right atrium was not well visualized. Aortic valve was trileaflet and normal. There was no aortic insufficiency/stenosis. There was trivial mitral and tricuspid regurgitation. There was mild pulmonary valve insufficiency. As there was no good tricuspid regurgitation jet, right ventricular systolic pressure could not be estimated. There was no pericardial effusion. Patient is 28 year old male with history of morbid obesity who presented with respiratory failure. Does have history of Asthma and reportedly has been intubated for it before. Trop has been mildly elevated. ACS is less likely and increase in troponin most likely represents demand physiology. Still, component of type 1 physiology cannot be completely ruled out. Echo revealed dilated RV. As there was no good TR jet, RVSP could not be estimated. Pulmonary Hypertension cannot be ruled out. Pulmonary on board. On sedation. ID on board Acute respiratory failure Asthma Asthma exacerbation Morbid obesity Abnormal trop Questionable heart failure, acute Pneumonia s/p bronchoscopy Cardiac suggestion for management: Manage in ICU IV diuresis Follow up electrolytes and kidney function test and correct abnormalities. Keep potassium above 4 and magnesium above 2 Lovenox ASA Follow up vital signs and correct hyper/hypotension. If needed add pressure support to keep MAP above 65 mmHg Pulmonary follow up Further evaluation and management depends on the above and clinical course A total of 75 minutes was spent reviewing the patient record, examining the patient, making a diagnostic and therapeutic plan, discussing this plan with medical personnel, following up on diagnostic studies and following the patient for clinical stability excluding any and all procedures. At least 50% of this time was spent in direct, [id number] contact. Thank you for allowing me to participate in this patient's care. Further recommendations will depend on patient's clinical course. Please do not hesitate to contact me if you have any questions or concerns. This medical document was created using electronic medical record system with [employer] computerized dictation system. Although this document has been carefully reviewed, there may still be some phonetic and typographical errors. These areas are purely typographical due to the imperfection of the software programs, and do not reflect any compromise in the patient's medical care. Dietary Evaluation Review Comments: Current Jevity 1.2 @60ml/hr TF is meeting pt's need for protein at 60% for energy at 117% Continue monitor nutrition progress of nutrition support to meet 75% of his needs. Advance to a cardiac diet, texture as tolerated when medically feasible. Expected Outcomes/Goals: gradual weight loss Plan discussed with: Other (nurse) PARRIS MCKINNON MD Feb 10, 2024 07:41
--- NOTE | 2024-02-10 08:12 | DVHPN2 ---
Progress Note - Dictate Date Seen: Feb 10, 2024 Medical Necessity Reason Pt with a Central, PICC or Fol: Yes The following are medically ne: Reyes Catheter Reason for reyes catheter: Strict I&O Subjective Patient remains intubated. No new acute complaints noted at this time. WBC trending up Patient has not been able to have sedation weaned off and to proceed with CPAP due to patient's severe anxiety. vital signs Vital Sign Date Time Temp Pulse Resp B/P (MAP) Pulse Ox O2 Delivery O2 Flow Rate FiO2 02/10/24 07:15 99.3 117 22 144/99 (114) 93 210.7 02/10/24 06:00 Mechanical Ventilator+ 30 30 Total Intake and Output 02/09/24 02/09/24 02/10/24 15:00 23:00 07:00 Intake Total 1024.335 ml 679.5 ml 651 ml Output Total 2700 ml 2750 ml Balance 1024.335 ml -2020.5 ml -2099 ml medications Current Medications Medications Dose Ordered Sig/Reji Route Start Time Stop Time Status Last Admin Dose Admin Ondansetron HCl 4 mg Q4HP PRN IV 01/19/24 20:15 Pantoprazole Sodium 40 mg DAILY IV 01/20/24 10:00 02/09/24 09:05 40 MG Nitroglycerin 0.4 mg Q5MINP PRN SL 01/19/24 20:15 Midazolam HCl 50 ml @ 1 mls/hr Q24H IV 01/19/24 21:30 02/10/24 01:49 4 MLS/HR Aspirin 81 mg DAILY NG 01/20/24 10:00 02/09/24 09:05 81 MG Atorvastatin Calcium 40 mg HS PO 01/20/24 22:00 02/09/24 21:17 40 MG Latanoprost 1 drop QPM EACHEYE 01/20/24 18:00 02/09/24 17:50 1 DROP Patient Own Medication 400 mg MONTHLY IM 01/20/24 11:30 Lisinopril 20 mg DAILY PO 01/20/24 11:30 02/09/24 09:05 20 MG Nitroglycerin 250 ml @ 1.5 mls/hr Q24H IV 01/20/24 20:30 Albuterol 2.5 mg Q4HR NEB 01/20/24 22:00 02/10/24 05:56 2.5 MG Ipratropium [place] 0.5 mg Q4HR NEB 01/20/24 22:00 02/10/24 05:57 0.5 MG Enteral Nutritional Formula 1,000 ml 60ML/HR GT 01/22/24 14:00 02/01/24 20:06 1,000 ML Vancomycin HCl 300 ml @ 200 mls/hr Q8H IV 01/28/24 02:00 Cancel Metoclopramide HCl 10 mg Q8HR IV 01/28/24 14:00 02/10/24 05:28 10 MG Docusate Sodium 100 mg BID GT 01/28/24 22:00 02/09/24 21:17 100 MG Hydralazine HCl 10 mg Q6HP PRN IV 01/30/24 13:15 02/05/24 02:46 10 MG Acetaminophen 650 mg Q4HP PRN PO 01/31/24 07:30 02/01/24 12:21 650 MG Furosemide 40 mg BIDD IV 02/02/24 10:30 02/10/24 05:28 40 MG Amino Acids 0 ml @ 0 mls/hr PER PHARMACY IV 02/03/24 12:15 Cefepime HCl 50 ml @ 12.5 mls/hr Q8HR IV 02/04/24 14:00 02/10/24 05:28 12.5 MLS/HR Diagnostic Test (Pha) 1 strip Q6HR 02/05/24 18:00 02/10/24 05:29 1 STRIP Dextrose 50 ml UD PRN IV 02/05/24 13:15 Insulin Human Regular Q6HR SC 02/05/24 15:15 02/10/24 06:24 8 UNITS Fentanyl Citrate 250 ml @ 2.5 mls/hr Q24H IV 02/07/24 08:15 02/09/24 21:30 10 MLS/HR Methylprednisolone Sodium Succinate 40 mg Q8HR IV 02/07/24 22:00 02/10/24 05:33 40 MG Quetiapine Fumarate 100 mg BID PO 02/07/24 22:00 02/09/24 21:17 100 MG Insulin Glargine 30 units BID@1000,2200 SC 02/08/24 22:00 02/09/24 21:32 30 UNITS Rocuronium [place] 1000 mg/ Sodium Chloride 250 ml @ 20.832 mls/ hr Q12H1M IV 02/08/24 14:15 02/09/24 02:19 12.499 MLS/HR Sodium Chloride 80 meq/Sodium Phosphate 20 meq/ Potassium Chloride 80 meq/ Magnesium Sulfate 12 meq/ Multivitamins 10 ml/Insulin Human Regular 36 units/ Amino Acids/ Dextrose/Purified Water 1,378.36 ml @ 57 mls/hr [id number] IV 02/09/24 22:00 02/10/24 21:59 02/09/24 21:29 57 MLS/HR Lactulose 30 ml Q6HR PO 02/09/24 18:00 02/10/24 05:27 30 ML Dexmedetomidine HCl 400 mcg/ Dextrose 100 ml @ 7.25 mls/hr [id number] IV 02/09/24 18:00 objective Gen.: Patient lying in bed in medical ICU. Sedated, intubated on mechanical ventilator. Head: Normocephalic, atraumatic. Eyes: PERRLA. Ears: Normal external anatomy. Throat: Endotracheal tube and orogastric tube in place. Neck: Supple, trachea midline. Chest: Decreased air entry bilaterally. No wheezing. Bibasilar crackles. Cardiovascular: Positive S1, positive S2. Regular rate and rhythm. Abdomen: . Soft, nontender, nondistended. : Reyes in place. Normal external genitalia. Rectal: Deferred. Skin: Warm, dry. Intact. Extremities: No lower extremity edema. Neuro: Sedated. laboratory and microbiology Laboratory Tests 02/10/24 03:13 Test 02/10/24 03:13 Range/Units Serum Glucose 238 H 74-106 mg/dL Assessment/Plan Patient is a 28-year-old male presented to the hospital with: # thrombocytopenia Multifocal pneumonia: [place] ARDS Acute hypoxic respiratory failure On mechanical ventilator Coag negative staphylococcus bacteremia leucocytosis Acute exacerbation of asthma Elevated Troponin Schizophrenia Autism Cannabinoid Use Morbid obesity BMI 60.5 Pulmonary edema Recommendations: reviewed cultures since admission listed below Culture History: 01/21, Blood culture showed Growth Of Coagulase Negative Staphylococcus 01/30, Urine culture: No growth monitored 01/30, Sputum culture showed Klebsiella pneumoniae 02/04: BAL cx [place] MRSA screen neg 02/09 chest x-ray : Lines and tubes in satisfactory position. No significant interval change. antibiotics history Vancomycin 12/13-18 Linezolid 01/27- 02/03 Zosyn: 01/31- 02/03 blood cx seems to look contaminations, + 1/2. discontinued Linezolid ( also platelets dropping) CXR shows multifocal infiltrate suggestive of ARDS, he is requiring high FIO2, possibly associated with pulm edema and bacterial pneumonia [place] is pansensitive, switched to cefepime. ( total duration of antibiotics 7-10 days including zosyn which was started on 01/31 pulmonary is on board, s/p bronchoscopy 02/04: mucous plugging, BAL cx grew Klebsiella lasix prognosis is very poor. critical time 35 minutes spent. Thank you for consult and for giving an opportunity to take care of this patient. Dietary Evaluation Review Comments: Current Jevity 1.2 @60ml/hr TF is meeting pt's need for protein at 60% for energy at 117% Continue monitor nutrition progress of nutrition support to meet 75% of his needs. Advance to a cardiac diet, texture as tolerated when medically feasible. Expected Outcomes/Goals: gradual weight loss Plan discussed with: Other EBEN BARBOUR MD Feb 10, 2024 08:12
--- NOTE | 2024-02-10 08:37 | DVHPN2 ---
Progress Note - Dictate Date Seen: Feb 10, 2024 Medical Necessity Reason Pt with a Central, PICC or Fol: Yes The following are medically ne: Reyes Catheter Reason for reyes catheter: Strict I&O vital signs Vital Sign Date Time Temp Pulse Resp B/P (MAP) Pulse Ox O2 Delivery O2 Flow Rate FiO2 02/10/24 07:15 99.3 117 22 144/99 (114) 93 210.7 02/10/24 06:00 Mechanical Ventilator+ 30 30 Total Intake and Output 02/09/24 02/09/24 02/10/24 15:00 23:00 07:00 Intake Total 1024.335 ml 679.5 ml 651 ml Output Total 2700 ml 2750 ml Balance 1024.335 ml -2020.5 ml -2099 ml medications Current Medications Medications Dose Ordered Sig/Reji Route Start Time Stop Time Status Last Admin Dose Admin Ondansetron HCl 4 mg Q4HP PRN IV 01/19/24 20:15 Pantoprazole Sodium 40 mg DAILY IV 01/20/24 10:00 02/09/24 09:05 40 MG Nitroglycerin 0.4 mg Q5MINP PRN SL 01/19/24 20:15 Midazolam HCl 50 ml @ 1 mls/hr Q24H IV 01/19/24 21:30 02/10/24 01:49 4 MLS/HR Aspirin 81 mg DAILY NG 01/20/24 10:00 02/09/24 09:05 81 MG Atorvastatin Calcium 40 mg HS PO 01/20/24 22:00 02/09/24 21:17 40 MG Latanoprost 1 drop QPM EACHEYE 01/20/24 18:00 02/09/24 17:50 1 DROP Patient Own Medication 400 mg MONTHLY IM 01/20/24 11:30 Lisinopril 20 mg DAILY PO 01/20/24 11:30 02/09/24 09:05 20 MG Nitroglycerin 250 ml @ 1.5 mls/hr Q24H IV 01/20/24 20:30 Albuterol 2.5 mg Q4HR NEB 01/20/24 22:00 02/10/24 05:56 2.5 MG Ipratropium [place] 0.5 mg Q4HR NEB 01/20/24 22:00 02/10/24 05:57 0.5 MG Enteral Nutritional Formula 1,000 ml 60ML/HR GT 01/22/24 14:00 02/01/24 20:06 1,000 ML Vancomycin HCl 300 ml @ 200 mls/hr Q8H IV 01/28/24 02:00 Cancel Metoclopramide HCl 10 mg Q8HR IV 01/28/24 14:00 02/10/24 05:28 10 MG Docusate Sodium 100 mg BID GT 01/28/24 22:00 02/09/24 21:17 100 MG Hydralazine HCl 10 mg Q6HP PRN IV 01/30/24 13:15 02/05/24 02:46 10 MG Acetaminophen 650 mg Q4HP PRN PO 01/31/24 07:30 02/01/24 12:21 650 MG Furosemide 40 mg BIDD IV 02/02/24 10:30 02/10/24 05:28 40 MG Amino Acids 0 ml @ 0 mls/hr PER PHARMACY IV 02/03/24 12:15 Cefepime HCl 50 ml @ 12.5 mls/hr Q8HR IV 02/04/24 14:00 02/10/24 05:28 12.5 MLS/HR Diagnostic Test (Pha) 1 strip Q6HR 02/05/24 18:00 02/10/24 05:29 1 STRIP Dextrose 50 ml UD PRN IV 02/05/24 13:15 Insulin Human Regular Q6HR SC 02/05/24 15:15 02/10/24 06:24 8 UNITS Fentanyl Citrate 250 ml @ 2.5 mls/hr Q24H IV 02/07/24 08:15 02/09/24 21:30 10 MLS/HR Methylprednisolone Sodium Succinate 40 mg Q8HR IV 02/07/24 22:00 02/10/24 05:33 40 MG Quetiapine Fumarate 100 mg BID PO 02/07/24 22:00 02/09/24 21:17 100 MG Insulin Glargine 30 units BID@1000,2200 SC 02/08/24 22:00 02/09/24 21:32 30 UNITS Rocuronium [place] 1000 mg/ Sodium Chloride 250 ml @ 20.832 mls/ hr Q12H1M IV 02/08/24 14:15 02/09/24 02:19 12.499 MLS/HR Sodium Chloride 80 meq/Sodium Phosphate 20 meq/ Potassium Chloride 80 meq/ Magnesium Sulfate 12 meq/ Multivitamins 10 ml/Insulin Human Regular 36 units/ Amino Acids/ Dextrose/Purified Water 1,378.36 ml @ 57 mls/hr [id number] IV 02/09/24 22:00 02/10/24 21:59 02/09/24 21:29 57 MLS/HR Lactulose 30 ml Q6HR PO 02/09/24 18:00 02/10/24 05:27 30 ML Dexmedetomidine HCl 400 mcg/ Dextrose 100 ml @ 7.25 mls/hr [id number] IV 02/09/24 18:00 objective General Appearance: alert, no distress HEENT: EOMI, PERRLA, normal external inspect of ears, no icterus, no nasal drainage Neck: no carotid bruit, no jugular venous distention (JVD), no lymphadenopathy Chest: normal thorax Respiratory: clear to auscultation Cardiovascular: regular rate and rhythm, no diastolic murmur, no jugular venous distention (JVD), no rub, no systolic murmur Abdominal: soft, no hepatomegaly, no mass, no splenomegaly, no tenderness Genitourinary: grossly normal external Musculoskeletal: no joint tenderness, no swelling Extremities: normal pulses, no calf tenderness, no clubbing, no cyanosis, no edema Skin: no bruising, no jaundice, no rash Neurological: alert, No focal deficit laboratory and microbiology Laboratory Tests 02/10/24 03:13 Test 02/10/24 03:13 Range/Units Serum Glucose 238 H 74-106 mg/dL Problem List 1. Asthma with acute exacerbation Pulmonary consult, monitoring 2. Acute hypoxic respiratory failure requiring intubation Pulmonary Consult 3. Schizophrenia Monitoring 4. Autism Medication, monitoring 5. Elevated Troponin Cardiology Consult, monitoring 6. Cannabis Use Education Assessment/Plan Subjective Patient remains intubated and sedated. Objective Patient is currently off sedation. Patient was admitted on January 19, 2024 for acute hypoxic respiratory failure due to a severe asthma exacerbation with pneumonia and sepsis and possible CHF. Plan Continue ventilator management per pulmonary. Pulmonary still attempting to wean down sedation. Continue antibiotics per ID. Continue diuretics. Dietary Evaluation Review Comments: Current Jevity 1.2 @60ml/hr TF is meeting pt's need for protein at 60% for energy at 117% Continue monitor nutrition progress of nutrition support to meet 75% of his needs. Advance to a cardiac diet, texture as tolerated when medically feasible. Expected Outcomes/Goals: gradual weight loss Plan discussed with: Patient, Other VIK COBOS NP Feb 10, 2024 08:37
[2024-02-10 11:45] LABS: Base Excess 2.7 mmol/L (-2.0-3.0)
[2024-02-10] MEDS: TPN PER PHARMACY IV NR (22:12)
[2024-02-10] MEDS: dilTIAZem HCL 60 MG TAB GT SCH (22:23)
--- NOTE | 2024-02-10 22:59 | DVHPN2 ---
Progress Note - Dictate Date Seen: Feb 10, 2024 Medical Necessity Reason Pt with a Central, PICC or Fol: Yes The following are medically ne: Reyes Catheter Reason for reyes catheter: Strict I&O Subjective Patient seen and examined at bedside. Sedated, intubated on mechanical ventilator. Overnight events reviewed. vital signs Vital Sign Date Time Temp Pulse Resp B/P (MAP) Pulse Ox O2 Delivery O2 Flow Rate FiO2 02/10/24 22:23 108 121/81 02/10/24 21:43 27 100 30 02/10/24 21:30 99.5 211.1 02/10/24 18:00 Mechanical Ventilator+ Total Intake and Output 02/09/24 02/09/24 02/10/24 15:00 23:00 07:00 Intake Total 1024.335 ml 679.5 ml 733.5 ml Output Total 2700 ml 2750 ml Balance 1024.335 ml -2020.5 ml -2016.5 ml medications Current Medications Medications Dose Ordered Sig/Reji Route Start Time Stop Time Status Last Admin Dose Admin Ondansetron HCl 4 mg Q4HP PRN IV 01/19/24 20:15 Pantoprazole Sodium 40 mg DAILY IV 01/20/24 10:00 02/10/24 09:21 40 MG Nitroglycerin 0.4 mg Q5MINP PRN SL 01/19/24 20:15 Midazolam HCl 50 ml @ 1 mls/hr Q24H IV 01/19/24 21:30 02/10/24 16:42 4 MLS/HR Aspirin 81 mg DAILY NG 01/20/24 10:00 02/10/24 09:21 81 MG Atorvastatin Calcium 40 mg HS PO 01/20/24 22:00 02/10/24 22:22 40 MG Latanoprost 1 drop QPM EACHEYE 01/20/24 18:00 02/10/24 17:44 1 DROP Patient Own Medication 400 mg MONTHLY IM 01/20/24 11:30 Lisinopril 20 mg DAILY PO 01/20/24 11:30 02/10/24 09:36 20 MG Nitroglycerin 250 ml @ 1.5 mls/hr Q24H IV 01/20/24 20:30 Albuterol 2.5 mg Q4HR NEB 01/20/24 22:00 02/10/24 22:29 2.5 MG Ipratropium [place] 0.5 mg Q4HR NEB 01/20/24 22:00 02/10/24 22:29 0.5 MG Enteral Nutritional Formula 1,000 ml 60ML/HR GT 01/22/24 14:00 02/01/24 20:06 1,000 ML Vancomycin HCl 300 ml @ 200 mls/hr Q8H IV 01/28/24 02:00 Cancel Metoclopramide HCl 10 mg Q8HR IV 01/28/24 14:00 02/10/24 22:19 10 MG Docusate Sodium 100 mg BID GT 01/28/24 22:00 02/10/24 22:19 100 MG Hydralazine HCl 10 mg Q6HP PRN IV 01/30/24 13:15 02/05/24 02:46 10 MG Acetaminophen 650 mg Q4HP PRN PO 01/31/24 07:30 02/01/24 12:21 650 MG Furosemide 40 mg BIDD IV 02/02/24 10:30 02/10/24 17:44 40 MG Amino Acids 0 ml @ 0 mls/hr PER PHARMACY IV 02/03/24 12:15 Cefepime HCl 50 ml @ 12.5 mls/hr Q8HR IV 02/04/24 14:00 02/10/24 22:20 12.5 MLS/HR Diagnostic Test (Pha) 1 strip Q6HR 02/05/24 18:00 02/10/24 17:50 1 STRIP Dextrose 50 ml UD PRN IV 02/05/24 13:15 Insulin Human Regular Q6HR SC 02/05/24 15:15 02/10/24 17:51 16 UNITS Fentanyl Citrate 250 ml @ 2.5 mls/hr Q24H IV 02/07/24 08:15 02/10/24 20:16 12.5 MLS/HR Methylprednisolone Sodium Succinate 40 mg Q8HR IV 02/07/24 22:00 02/10/24 22:20 40 MG Quetiapine Fumarate 100 mg BID PO 02/07/24 22:00 02/10/24 22:23 100 MG Insulin Glargine 30 units BID@1000,2200 SC 02/08/24 22:00 02/10/24 22:12 30 UNITS Lactulose 30 ml Q6HR PO 02/09/24 18:00 02/10/24 17:44 30 ML Dexmedetomidine HCl 400 mcg/ Dextrose 100 ml @ 7.25 mls/hr [id number] IV 02/09/24 18:00 Fat Emulsion Intravenous 50 ml/ Sodium Chloride 60 meq/Sodium Phosphate 40 meq/ Potassium Chloride 100 meq/ Magnesium Sulfate 14 meq/ Multivitamins 10 ml/Insulin Human Regular 38 units/ Amino Acids/ Dextrose/Purified Water 1,538.88 ml @ 64 mls/hr Q24H3M IV 02/10/24 22:00 02/11/24 22:02 02/10/24 22:12 64 MLS/HR Diltiazem HCl 30 mg BID GT 02/10/24 22:00 02/10/24 22:23 30 MG objective Gen.: Patient lying in bed in medical ICU. Sedated, intubated on mechanical ventilator. Head: Normocephalic, atraumatic. Eyes: PERRLA. Ears: Normal external anatomy. Throat: Endotracheal tube and orogastric tube in place. Neck: Supple, trachea midline. Chest: Transmitted breath sounds bilaterally. Decreased air entry bilaterally. No wheezing. Bibasilar crackles. Cardiovascular: Positive S1, positive S2. Regular rate and rhythm. Abdomen: Positive bowel sounds in all 4 quadrants. Soft, nontender, nondistended. : Reyes in place. Normal external genitalia. Rectal: Deferred. Skin: Warm, dry. Intact. Extremities: 2+ radial pulses bilaterally. No lower extremity edema. Neuro: Sedated. laboratory and microbiology Laboratory Tests 02/10/24 03:13 Test 02/10/24 03:13 Range/Units Serum Glucose 238 H 74-106 mg/dL Assessment/Plan Impression: Acute hypoxic respiratory failure On mechanical ventilator Acute exacerbation of asthma Elevated Troponin Schizophrenia Autism Cannabinoid Use Morbid obesity BMI 60.5 Pulmonary edema Events: Remains on vent support On AC mode with RR 28 -->26, VT 500, PEEP 8, FiO2 30% Sedated on Versed, Fentanyl Off Rocuronium drip Leukocytosis - monitor WBC ABG reviewed. Compensated. CXR demonstrates devices in place; pulmonary edema. Seroquel 100 mg q.12 hours. Continue bronchodilators IV steroids Continue antibiotics TPN for nutritional support Diurese to euvolemia - Lasix BID Monitor renal function Monitor electrolytes. Supplement as necessary. Monitor ins and outs. Plan for CPAP in AM Taper sedation as tolerated Recommend trach/PEG to liberate from vent. Bronchoscopy w/ RML BAL was performed on 02/05/24. Cultures grew Klebsiella pneumoniae. Labs and imaging reviewed. Rest of plan as noted below. Plan: s/p intubation on mechanical ventilator. On AC mode with RR 28 -->26, VT 500, PEEP 8, FiO2 30% Titrate FIO2 to keep O2 saturation above 90%. VAP bundle. Daily ABG and CXR while intubated Sedate for ventilator synchrony Pt does not tolerate turns. Derecruitment. Turn carefully. Elevated Troponin - Cardiology recs appreciated. Continue bronchodilators Antibiotics. F/u cultures. Pressors if necessary for hemodynamic support Titrate to keep mean arterial pressure greater than 65 mmHg. Currently off pressors, hemodynamically stable. Diurese to euvolemia Monitor renal function Monitor electrolytes. Supplement as necessary. Monitor ins and outs. Diet and lifestyle modifications for weight reduction Morbid obesity - complicates all care GI prophylaxis. DVT prophylaxis. Prognosis: Poor given patient's multiple co-morbidities. Condition: Critical Rest of plan per hospitalist and other consultants. A total of 35 minutes of critical care time was spent reviewing the patient record, examining the patient, making a diagnostic and therapeutic plan, discussing this plan with the medical personnel, following up on diagnostic studies and following the patient for clinical stability excluding any and all procedures. At least 50% of this time was spent in direct, [id number] contact. Thank you Irma Velasquez NP, for allowing me to participate in this patient's care. Further recommendations will depend on the patient's clinical course. Please do not hesitate to contact me if you have any questions or concerns. This medical document was created using an electronic medical record system with [employer] dictation system. Although these documentations are being carefully reviewed, there may still be some phonetic and typographical changes. The errors are purely typographical, due to imperfection on the software program, and do not reflect any compromise in the patient's medical care. Dietary Evaluation Review Comments: Current [place]ev[place] 1.2 @60ml/hr TF is meeting pt's need for protein at 60% for energy at 117% Continue monitor nutrition progress of nutrition support to meet 75% of his needs. Advance to a cardiac diet, texture as tolerated when medically feasible. Expected Outcomes/Goals: gradual weight loss Plan discussed with: Other (SAIGE Rocha) Critical Care Time(min): 35 VERÓNICA MERCER MD Feb 10, 2024 22:59
[2024-02-11] VITALS (114 sets, daily range): BP systolic 75–150; BP diastolic 31–99; PULSE 76–138; RESP 16–35; TEMP 98.6–99.9; O2SAT 92–100
[2024-02-11 03:54] LABS: Anion Gap 8 (5-15); BUN/Creatinine Ratio 66.7 (10.0-20.0); Calcium 9.8 mg/dL (8.7-10.4); Carbon Dioxide 28 mmol/L (20-31); Chloride 103 mmol/L (98-107); Magnesium 1.9 mg/dL (1.6-2.6); Sodium 139 mmol/L (136-145)
[2024-02-11 03:55] LABS: Phosphorus 3.8 mg/dL (2.4-5.1); Total Protein 6.8 g/dL (5.7-8.2)
[2024-02-11 04:08] LABS: Alanine Aminotransferase 223 U/L (7-40); Alkaline Phosphatase 150 U/L (46-116); Aspartate Aminotransferase 67 U/L (13-40); Bilirubin, Total 2.6 mg/dL (0.2-1.0); Blood Urea Nitrogen 28 mg/dL (9-23); Glucose 298 mg/dL (74-106)
--- NOTE | 2024-02-11 06:47 | DVH ---
CHEST RADIOGRAPH Indication: ARF, INTUBATED Technique: Single frontal view of the chest was obtained Comparison: XY CHEST PORTABLE on DOS: 02/10/24, XY CHEST PORTABLE on DOS: 02/08/24, XY CHEST PORTABLE on DOS: 02/06/24 IMPRESSION: Heart is enlarged. Patchy airspace opacity in the right lower lung appear similar. Moderate pulmonar y vascular congestion. Support lines and tubes appear unchanged. No significant interval change.
[2024-02-11 08:11] LABS: Base Excess 1.3 mmol/L (-2.0-3.0)
[2024-02-11 08:24] LABS: Eosinophils # (auto) 0 10 ^3/uL (0-0.8); Eosinophils % (auto) 0.1 % (0.0-7.0); Mean Corpuscular Volume 73.4 fL (80.0-100.0); Monocytes # (auto) 0.5 10 ^3/uL (0-1.3); Monocytes % (auto) 2.2 % (0.0-12.0); Nucleated Red Blood Cells % 0.1 %
[2024-02-11 08:28] LABS: Basophils # (auto) 0.1 10 ^3/uL (0-0.2); Basophils % (auto) 0.3 % (0.0-2.0); Hematocrit 43.1 % (41.0-53.0); Hemoglobin 13.1 g/dL (13.5-17.5); Lymphocytes # (auto) 0.4 10 ^3/uL (0.4-5.4); Lymphocytes % (auto) 1.8 % (10.0-50.0); Mean Corpuscular Hemoglobin 22.3 pg (28.0-32.0); Mean Corpuscular Hgb Conc. 30.3 g/dL (32.0-36.0); Neutrophils # (auto) 22.7 10 ^3/uL (1.6-8.6); Neutrophils % (auto) 95.6 % (37.0-80.0); Platelet Count (auto) 190 10^3/uL (140-450); Red Blood Cells 5.87 10^6/uL (4.5-5.90); Red Cell Distribution Width 18.8 % (11.8-14.3); White Blood Cell 23.8 10^3/uL (4.4-10.8)
[2024-02-11 09:17] LABS: Anisocytosis Slight; Hypochromia Slight; Platelet Estimate Adequate
[2024-02-11] MEDS: NOREPINEPHRINE 8 MG/250ML KIT 250 ML IV SCH (10:45)
--- NOTE | 2024-02-11 11:06 | DVHPN2 ---
Progress Note Date Seen: Feb 11, 2024 Medical Necessity Reason Pt with a Central, PICC or Fol: Yes The following are medically ne: Reyes Catheter Reason for reyes catheter: Strict I&O Subjective Review of Systems unobtainable Objective vital signs Vital Sign Date Time Temp Pulse Resp B/P (MAP) Pulse Ox O2 Delivery O2 Flow Rate FiO2 02/11/24 10:15 99.3 78 26 100/54 (69) 98 210.7 02/11/24 09:39 30 02/11/24 09:31 Mechanical Ventilator+ Total Intake and Output 02/10/24 02/10/24 02/11/24 15:00 23:00 07:00 Intake Total 624.0 ml 482.0 ml 442.0 ml Output Total 1325 ml 2000 ml Balance 624.0 ml -843.0 ml -1558.0 ml medications Current Medications Medications Dose Ordered Sig/Reji Route Start Time Stop Time Status Last Admin Dose Admin Ondansetron HCl 4 mg Q4HP PRN IV 01/19/24 20:15 Pantoprazole Sodium 40 mg DAILY IV 01/20/24 10:00 02/11/24 07:49 40 MG Nitroglycerin 0.4 mg Q5MINP PRN SL 01/19/24 20:15 Midazolam HCl 50 ml @ 1 mls/hr Q24H IV 01/19/24 21:30 02/11/24 07:28 9 MLS/HR Aspirin 81 mg DAILY NG 01/20/24 10:00 02/11/24 07:49 81 MG Atorvastatin Calcium 40 mg HS PO 01/20/24 22:00 02/10/24 22:22 40 MG Latanoprost 1 drop QPM EACHEYE 01/20/24 18:00 02/10/24 17:44 1 DROP Patient Own Medication 400 mg MONTHLY IM 01/20/24 11:30 Lisinopril 20 mg DAILY PO 01/20/24 11:30 02/11/24 07:50 20 MG Nitroglycerin 250 ml @ 1.5 mls/hr Q24H IV 01/20/24 20:30 Albuterol 2.5 mg Q4HR NEB 01/20/24 22:00 02/11/24 09:50 2.5 MG Ipratropium [place] 0.5 mg Q4HR NEB 01/20/24 22:00 02/11/24 09:50 0.5 MG Enteral Nutritional Formula 1,000 ml 60ML/HR GT 01/22/24 14:00 02/01/24 20:06 1,000 ML Vancomycin HCl 300 ml @ 200 mls/hr Q8H IV 01/28/24 02:00 Cancel Metoclopramide HCl 10 mg Q8HR IV 01/28/24 14:00 02/11/24 05:56 10 MG Docusate Sodium 100 mg BID GT 01/28/24 22:00 02/11/24 07:49 100 MG Hydralazine HCl 10 mg Q6HP PRN IV 01/30/24 13:15 02/05/24 02:46 10 MG Acetaminophen 650 mg Q4HP PRN PO 01/31/24 07:30 02/01/24 12:21 650 MG Furosemide 40 mg BIDD IV 02/02/24 10:30 02/11/24 05:56 40 MG Amino Acids 0 ml @ 0 mls/hr PER PHARMACY IV 02/03/24 12:15 Cefepime HCl 50 ml @ 12.5 mls/hr Q8HR IV 02/04/24 14:00 02/11/24 05:56 12.5 MLS/HR Diagnostic Test (Pha) 1 strip Q6HR 02/05/24 18:00 02/11/24 10:53 1 STRIP Dextrose 50 ml UD PRN IV 02/05/24 13:15 Insulin Human Regular Q6HR SC 02/05/24 15:15 02/11/24 06:01 12 UNITS Fentanyl Citrate 250 ml @ 2.5 mls/hr Q24H IV 02/07/24 08:15 02/11/24 07:33 25 MLS/HR Methylprednisolone Sodium Succinate 40 mg Q8HR IV 02/07/24 22:00 02/11/24 05:56 40 MG Quetiapine Fumarate 100 mg BID PO 02/07/24 22:00 02/11/24 07:49 100 MG Insulin Glargine 30 units BID@1000,2200 SC 02/08/24 22:00 02/11/24 08:26 30 UNITS Lactulose 30 ml Q6HR PO 02/09/24 18:00 02/11/24 05:56 30 ML Dexmedetomidine HCl 400 mcg/ Dextrose 100 ml @ 7.25 mls/hr [id number] IV 02/09/24 18:00 Fat Emulsion Intravenous 50 ml/ Sodium Chloride 60 meq/Sodium Phosphate 40 meq/ Potassium Chloride 100 meq/ Magnesium Sulfate 14 meq/ Multivitamins 10 ml/Insulin Human Regular 38 units/ Amino Acids/ Dextrose/Purified Water 1,538.88 ml @ 64 mls/hr Q24H3M IV 02/10/24 22:00 02/11/24 22:02 02/10/24 22:12 64 MLS/HR Diltiazem HCl 30 mg BID GT 02/10/24 22:00 02/11/24 07:49 30 MG Norepinephrine Bitartrate 250 ml @ 3.75 mls/hr Q24H IV 02/11/24 10:45 Fat Emulsion Intravenous 100 ml/Sodium Chloride 40 meq/ Sodium Phosphate 20 meq/Potassium Chloride 60 meq/ Magnesium Sulfate 16 meq/ Multivitamins 10 ml/Insulin Human Regular 48 units/ Amino Acids/ Dextrose/Purified Water 1,559.48 ml @ 65 mls/hr Q24H IV 02/11/24 22:00 02/12/24 21:59 laboratory and microbiology Laboratory Tests 02/11/24 07:19 02/11/24 03:00 Test 02/11/24 03:00 Range/Units Serum Glucose 298 H 74-106 mg/dL Microbiology Date/Time Source Procedure Growth Status 02/05/24 12:40 Sputum Endotracheal Wash Gram Stain - Final Complete 02/05/24 12:40 Respiratory Culture - Final Klebsiella pneumoniae Complete 01/31/24 14:11 Blood Blood Culture - Final Staph hominis subsp homins Complete 01/31/24 10:00 Urine - [place] Urine Culture - Final Complete 01/21/24 18:24 Nose MRSA Screen - Final Complete Problem List/Assessment/Plan Problem List/Assessment/Plan Acute respiratory failure Asthma Asthma exacerbation Morbid obesity Abnormal trop Questionable heart failure, acute Pneumonia s/p bronchoscopy Plan:Will continue current care Plan discussed with: Other (nurse) My Orders My Orders Orders - JENNY STOVER MD Procedure Category Date Status Time Diltiazem Immediate PHA 02/10/24 In Process Releas Tab (Cardizem 22:00 Dietary Evaluation Review Comments: Current Jevity 1.2 @60ml/hr TF is meeting pt's need for protein at 60% for energy at 117% Continue monitor nutrition progress of nutrition support to meet 75% of his needs. Advance to a cardiac diet, texture as tolerated when medically feasible. Expected Outcomes/Goals: gradual weight loss Sepsis reassessment post fluid Date of Reassessment: Feb 11, 2024 JENNY STOVER MD Feb 11, 2024 11:06
--- NOTE | 2024-02-11 11:14 | DVHPN2 ---
Progress Note - Dictate Date Seen: Feb 11, 2024 Medical Necessity Reason Pt with a Central, PICC or Fol: Yes The following are medically ne: Reyes Catheter Reason for reyes catheter: Strict I&O vital signs Vital Sign Date Time Temp Pulse Resp B/P (MAP) Pulse Ox O2 Delivery O2 Flow Rate FiO2 02/11/24 10:15 99.3 78 26 100/54 (69) 98 210.7 02/11/24 09:39 30 02/11/24 09:31 Mechanical Ventilator+ Total Intake and Output 02/10/24 02/10/24 02/11/24 15:00 23:00 07:00 Intake Total 624.0 ml 482.0 ml 442.0 ml Output Total 1325 ml 2000 ml Balance 624.0 ml -843.0 ml -1558.0 ml medications Current Medications Medications Dose Ordered Sig/Reji Route Start Time Stop Time Status Last Admin Dose Admin Ondansetron HCl 4 mg Q4HP PRN IV 01/19/24 20:15 Pantoprazole Sodium 40 mg DAILY IV 01/20/24 10:00 02/11/24 07:49 40 MG Nitroglycerin 0.4 mg Q5MINP PRN SL 01/19/24 20:15 Midazolam HCl 50 ml @ 1 mls/hr Q24H IV 01/19/24 21:30 02/11/24 07:28 9 MLS/HR Aspirin 81 mg DAILY NG 01/20/24 10:00 02/11/24 07:49 81 MG Atorvastatin Calcium 40 mg HS PO 01/20/24 22:00 02/10/24 22:22 40 MG Latanoprost 1 drop QPM EACHEYE 01/20/24 18:00 02/10/24 17:44 1 DROP Patient Own Medication 400 mg MONTHLY IM 01/20/24 11:30 Lisinopril 20 mg DAILY PO 01/20/24 11:30 02/11/24 07:50 20 MG Nitroglycerin 250 ml @ 1.5 mls/hr Q24H IV 01/20/24 20:30 Albuterol 2.5 mg Q4HR NEB 01/20/24 22:00 02/11/24 09:50 2.5 MG Ipratropium [place] 0.5 mg Q4HR NEB 01/20/24 22:00 02/11/24 09:50 0.5 MG Enteral Nutritional Formula 1,000 ml 60ML/HR GT 01/22/24 14:00 02/01/24 20:06 1,000 ML Vancomycin HCl 300 ml @ 200 mls/hr Q8H IV 01/28/24 02:00 Cancel Metoclopramide HCl 10 mg Q8HR IV 01/28/24 14:00 02/11/24 05:56 10 MG Docusate Sodium 100 mg BID GT 01/28/24 22:00 02/11/24 07:49 100 MG Hydralazine HCl 10 mg Q6HP PRN IV 01/30/24 13:15 02/05/24 02:46 10 MG Acetaminophen 650 mg Q4HP PRN PO 01/31/24 07:30 02/01/24 12:21 650 MG Furosemide 40 mg BIDD IV 02/02/24 10:30 02/11/24 05:56 40 MG Amino Acids 0 ml @ 0 mls/hr PER PHARMACY IV 02/03/24 12:15 Cefepime HCl 50 ml @ 12.5 mls/hr Q8HR IV 02/04/24 14:00 02/11/24 05:56 12.5 MLS/HR Diagnostic Test (Pha) 1 strip Q6HR 02/05/24 18:00 02/11/24 10:53 1 STRIP Dextrose 50 ml UD PRN IV 02/05/24 13:15 Insulin Human Regular Q6HR SC 02/05/24 15:15 02/11/24 06:01 12 UNITS Fentanyl Citrate 250 ml @ 2.5 mls/hr Q24H IV 02/07/24 08:15 02/11/24 07:33 25 MLS/HR Methylprednisolone Sodium Succinate 40 mg Q8HR IV 02/07/24 22:00 02/11/24 05:56 40 MG Quetiapine Fumarate 100 mg BID PO 02/07/24 22:00 02/11/24 07:49 100 MG Insulin Glargine 30 units BID@1000,2200 SC 02/08/24 22:00 02/11/24 08:26 30 UNITS Lactulose 30 ml Q6HR PO 02/09/24 18:00 02/11/24 05:56 30 ML Dexmedetomidine HCl 400 mcg/ Dextrose 100 ml @ 7.25 mls/hr [id number] IV 02/09/24 18:00 Fat Emulsion Intravenous 50 ml/ Sodium Chloride 60 meq/Sodium Phosphate 40 meq/ Potassium Chloride 100 meq/ Magnesium Sulfate 14 meq/ Multivitamins 10 ml/Insulin Human Regular 38 units/ Amino Acids/ Dextrose/Purified Water 1,538.88 ml @ 64 mls/hr Q24H3M IV 02/10/24 22:00 02/11/24 22:02 02/10/24 22:12 64 MLS/HR Diltiazem HCl 30 mg BID GT 02/10/24 22:00 02/11/24 07:49 30 MG Norepinephrine Bitartrate 250 ml @ 3.75 mls/hr Q24H IV 02/11/24 10:45 Fat Emulsion Intravenous 100 ml/Sodium Chloride 40 meq/ Sodium Phosphate 20 meq/Potassium Chloride 60 meq/ Magnesium Sulfate 16 meq/ Multivitamins 10 ml/Insulin Human Regular 48 units/ Amino Acids/ Dextrose/Purified Water 1,559.48 ml @ 65 mls/hr Q24H IV 02/11/24 22:00 02/12/24 21:59 objective General Appearance: alert, no distress HEENT: EOMI, PERRLA, normal external inspect of ears, no icterus, no nasal drainage Neck: no carotid bruit, no jugular venous distention (JVD), no lymphadenopathy Chest: normal thorax Respiratory: clear to auscultation Cardiovascular: regular rate and rhythm, no diastolic murmur, no jugular venous distention (JVD), no rub, no systolic murmur Abdominal: soft, no hepatomegaly, no mass, no splenomegaly, no tenderness Genitourinary: grossly normal external Musculoskeletal: no joint tenderness, no swelling Extremities: normal pulses, no calf tenderness, no clubbing, no cyanosis, no edema Skin: no bruising, no jaundice, no rash Neurological: alert, No focal deficit laboratory and microbiology Laboratory Tests 02/11/24 07:19 02/11/24 03:00 Test 02/11/24 03:00 Range/Units Serum Glucose 298 H 74-106 mg/dL Problem List 1. Asthma with acute exacerbation Pulmonary consult, monitoring 2. Acute hypoxic respiratory failure requiring intubation Pulmonary Consult 3. Schizophrenia Monitoring 4. Autism Medication, monitoring 5. Elevated Troponin Cardiology Consult, monitoring 6. Cannabis Use Education Assessment/Plan Subjective: Patient is alert and currently on the ventilator. Objective: I spoke with patient and patient's mother at bedside. Sedation is currently being weaned off. Patient is off his paralytic. Currently he is on 30% FiO2 on the ventilator. Patient has a soft blood pressure. Levophed was started to keep blood pressure above 100. Plan: Continue antibiotics per ID. Patient has leukocytosis and is afebrile. Monitor daily labs. Ventilator management per pulmonary. LTAC eval in progress. Dietary Evaluation Review Comments: Current Jevity 1.2 @60ml/hr TF is meeting pt's need for protein at 60% for energy at 117% Continue monitor nutrition progress of nutrition support to meet 75% of his needs. Advance to a cardiac diet, texture as tolerated when medically feasible. Expected Outcomes/Goals: gradual weight loss Plan discussed with: Patient, Other Date of Reassessment: Feb 11, 2024 VIK COBOS NP Feb 11, 2024 11:14
--- NOTE | 2024-02-11 15:59 | DVHPN2 ---
Progress Note - Dictate Date Seen: Feb 11, 2024 Medical Necessity Reason Pt with a Central, PICC or Fol: Yes The following are medically ne: Reyes Catheter Reason for reyes catheter: Strict I&O Subjective Patient remains intubated. No new acute complaints noted at this time. WBC trending up vital signs Vital Sign Date Time Temp Pulse Resp B/P (MAP) Pulse Ox O2 Delivery O2 Flow Rate FiO2 02/11/24 15:31 30 02/11/24 15:31 26 99 Mechanical Ventilator+ 02/11/24 15:30 98.8 89 102/55 (71) 209.8 Total Intake and Output 02/10/24 02/10/24 02/11/24 15:00 23:00 07:00 Intake Total 624.0 ml 482.0 ml 442.0 ml Output Total 1325 ml 2000 ml Balance 624.0 ml -843.0 ml -1558.0 ml medications Current Medications Medications Dose Ordered Sig/Reji Route Start Time Stop Time Status Last Admin Dose Admin Ondansetron HCl 4 mg Q4HP PRN IV 01/19/24 20:15 Pantoprazole Sodium 40 mg DAILY IV 01/20/24 10:00 02/11/24 07:49 40 MG Nitroglycerin 0.4 mg Q5MINP PRN SL 01/19/24 20:15 Midazolam HCl 50 ml @ 1 mls/hr Q24H IV 01/19/24 21:30 02/11/24 14:14 7 MLS/HR Aspirin 81 mg DAILY NG 01/20/24 10:00 02/11/24 07:49 81 MG Atorvastatin Calcium 40 mg HS PO 01/20/24 22:00 02/10/24 22:22 40 MG Latanoprost 1 drop QPM EACHEYE 01/20/24 18:00 02/10/24 17:44 1 DROP Patient Own Medication 400 mg MONTHLY IM 01/20/24 11:30 Lisinopril 20 mg DAILY PO 01/20/24 11:30 02/11/24 07:50 20 MG Nitroglycerin 250 ml @ 1.5 mls/hr Q24H IV 01/20/24 20:30 Albuterol 2.5 mg Q4HR NEB 01/20/24 22:00 02/11/24 09:50 2.5 MG Ipratropium [place] 0.5 mg Q4HR NEB 01/20/24 22:00 02/11/24 09:50 0.5 MG Enteral Nutritional Formula 1,000 ml 60ML/HR GT 01/22/24 14:00 02/01/24 20:06 1,000 ML Vancomycin HCl 300 ml @ 200 mls/hr Q8H IV 01/28/24 02:00 Cancel Metoclopramide HCl 10 mg Q8HR IV 01/28/24 14:00 02/11/24 12:48 10 MG Docusate Sodium 100 mg BID GT 01/28/24 22:00 02/11/24 07:49 100 MG Hydralazine HCl 10 mg Q6HP PRN IV 01/30/24 13:15 02/05/24 02:46 10 MG Acetaminophen 650 mg Q4HP PRN PO 01/31/24 07:30 02/01/24 12:21 650 MG Furosemide 40 mg BIDD IV 02/02/24 10:30 02/11/24 05:56 40 MG Amino Acids 0 ml @ 0 mls/hr PER PHARMACY IV 02/03/24 12:15 Cefepime HCl 50 ml @ 12.5 mls/hr Q8HR IV 02/04/24 14:00 02/11/24 12:48 12.5 MLS/HR Diagnostic Test (Pha) 1 strip Q6HR 02/05/24 18:00 02/11/24 10:53 1 STRIP Dextrose 50 ml UD PRN IV 02/05/24 13:15 Insulin Human Regular Q6HR SC 02/05/24 15:15 02/11/24 12:00 16 UNITS Fentanyl Citrate 250 ml @ 2.5 mls/hr Q24H IV 02/07/24 08:15 02/11/24 07:33 25 MLS/HR Methylprednisolone Sodium Succinate 40 mg Q8HR IV 02/07/24 22:00 02/11/24 05:56 40 MG Quetiapine Fumarate 100 mg BID PO 02/07/24 22:00 02/11/24 07:49 100 MG Insulin Glargine 30 units BID@1000,2200 SC 02/08/24 22:00 02/11/24 08:26 30 UNITS Lactulose 30 ml Q6HR PO 02/09/24 18:00 02/11/24 12:48 30 ML Dexmedetomidine HCl 400 mcg/ Dextrose 100 ml @ 7.25 mls/hr [id number] IV 02/09/24 18:00 Fat Emulsion Intravenous 50 ml/ Sodium Chloride 60 meq/Sodium Phosphate 40 meq/ Potassium Chloride 100 meq/ Magnesium Sulfate 14 meq/ Multivitamins 10 ml/Insulin Human Regular 38 units/ Amino Acids/ Dextrose/Purified Water 1,538.88 ml @ 64 mls/hr Q24H3M IV 02/10/24 22:00 02/11/24 22:02 02/10/24 22:12 64 MLS/HR Diltiazem HCl 30 mg BID GT 02/10/24 22:00 02/11/24 07:49 30 MG Norepinephrine Bitartrate 250 ml @ 3.75 mls/hr Q24H IV 02/11/24 10:45 Fat Emulsion Intravenous 100 ml/Sodium Chloride 40 meq/ Sodium Phosphate 20 meq/Potassium Chloride 60 meq/ Magnesium Sulfate 16 meq/ Multivitamins 10 ml/Insulin Human Regular 48 units/ Amino Acids/ Dextrose/Purified Water 1,559.48 ml @ 65 mls/hr Q24H IV 02/11/24 22:00 02/12/24 21:59 objective Gen.: Patient lying in bed in medical ICU. Sedated, intubated on mechanical ventilator. Head: Normocephalic, atraumatic. Eyes: PERRLA. Ears: Normal external anatomy. Throat: Endotracheal tube and orogastric tube in place. Neck: Supple, trachea midline. Chest: Decreased air entry bilaterally. No wheezing. Bibasilar crackles. Cardiovascular: Positive S1, positive S2. Regular rate and rhythm. Abdomen: . Soft, nontender, nondistended. : Reyes in place. Normal external genitalia. Rectal: Deferred. Skin: Warm, dry. Intact. Extremities: No lower extremity edema. Neuro: Sedated. laboratory and microbiology Laboratory Tests 02/11/24 07:19 02/11/24 03:00 Test 02/11/24 03:00 Range/Units Serum Glucose 298 H 74-106 mg/dL Assessment/Plan Patient is a 28-year-old male presented to the hospital with: # thrombocytopenia Multifocal pneumonia: [place] ARDS Acute hypoxic respiratory failure On mechanical ventilator Coag negative staphylococcus bacteremia leucocytosis Acute exacerbation of asthma Elevated Troponin Schizophrenia Autism Cannabinoid Use Morbid obesity BMI 60.5 Pulmonary edema Recommendations: reviewed cultures since admission listed below Culture History: 01/21, Blood culture showed Growth Of Coagulase Negative Staphylococcus 01/30, Urine culture: No growth monitored 01/30, Sputum culture showed Klebsiella pneumoniae 02/04: BAL cx [place] MRSA screen neg 02/09 chest x-ray : Heart is enlarged. Patchy airspace opacity in the right lower lung appear similar. Moderate pulmonary vascular congestion. Support lines and tubes appear unchanged. No significant interval change. antibiotics history Vancomycin 01/22- Linezolid 01/27- 02/03 Zosyn: 01/31- 02/03 blood cx seems to look contaminations, + 1/2. discontinued Linezolid ( also platelets dropping) CXR shows multifocal infiltrate suggestive of ARDS, he is requiring high FIO2, possibly associated with pulm edema and bacterial pneumonia [place] is pansensitive, switched to cefepime. ( total duration of antibiotics 7-10 days including zosyn which was started on 01/31 pulmonary is on board, s/p bronchoscopy 02/04: mucous plugging, BAL cx grew Klebsiella lasix prognosis is very poor. critical time 35 minutes spent. Thank you for consult and for giving an opportunity to take care of this patient. Dietary Evaluation Review Comments: Current Jevity 1.2 @60ml/hr TF is meeting pt's need for protein at 60% for energy at 117% Continue monitor nutrition progress of nutrition support to meet 75% of his needs. Advance to a cardiac diet, texture as tolerated when medically feasible. Expected Outcomes/Goals: gradual weight loss Plan discussed with: Other Date of Reassessment: Feb 11, 2024 EBEN BARBOUR MD Feb 11, 2024 15:59
[2024-02-11] MEDS: TPN PER PHARMACY IV NR (22:03)
--- NOTE | 2024-02-11 23:30 | DVHPN2 ---
Progress Note - Dictate Date Seen: Feb 11, 2024 Medical Necessity Reason Pt with a Central, PICC or Fol: Yes The following are medically ne: Reyes Catheter Reason for reyes catheter: Strict I&O Subjective Patient seen and examined at bedside. Sedated, intubated on mechanical ventilator. Overnight events reviewed. vital signs Vital Sign Date Time Temp Pulse Resp B/P (MAP) Pulse Ox O2 Delivery O2 Flow Rate FiO2 02/11/24 23:00 101/55 02/11/24 22:01 99.3 103 27 100 210.7 02/11/24 21:54 30 02/11/24 20:00 Mechanical Ventilator+ Total Intake and Output 02/10/24 02/10/24 02/11/24 15:00 23:00 07:00 Intake Total 624.0 ml 482.0 ml 442.0 ml Output Total 1325 ml 2000 ml Balance 624.0 ml -843.0 ml -1558.0 ml medications Current Medications Medications Dose Ordered Sig/Reji Route Start Time Stop Time Status Last Admin Dose Admin Ondansetron HCl 4 mg Q4HP PRN IV 01/19/24 20:15 Pantoprazole Sodium 40 mg DAILY IV 01/20/24 10:00 02/11/24 07:49 40 MG Nitroglycerin 0.4 mg Q5MINP PRN SL 01/19/24 20:15 Midazolam HCl 50 ml @ 1 mls/hr Q24H IV 01/19/24 21:30 02/11/24 14:14 7 MLS/HR Aspirin 81 mg DAILY NG 01/20/24 10:00 02/11/24 07:49 81 MG Atorvastatin Calcium 40 mg HS PO 01/20/24 22:00 02/11/24 22:19 40 MG Latanoprost 1 drop QPM EACHEYE 01/20/24 18:00 02/10/24 17:44 1 DROP Patient Own Medication 400 mg MONTHLY IM 01/20/24 11:30 Lisinopril 20 mg DAILY PO 01/20/24 11:30 02/11/24 07:50 20 MG Nitroglycerin 250 ml @ 1.5 mls/hr Q24H IV 01/20/24 20:30 Albuterol 2.5 mg Q4HR NEB 01/20/24 22:00 02/11/24 21:54 2.5 MG Ipratropium [place] 0.5 mg Q4HR NEB 01/20/24 22:00 02/11/24 21:54 0.5 MG Enteral Nutritional Formula 1,000 ml 60ML/HR GT 01/22/24 14:00 02/01/24 20:06 1,000 ML Vancomycin HCl 300 ml @ 200 mls/hr Q8H IV 01/28/24 02:00 Cancel Metoclopramide HCl 10 mg Q8HR IV 01/28/24 14:00 02/11/24 22:10 10 MG Docusate Sodium 100 mg BID GT 01/28/24 22:00 02/11/24 22:19 100 MG Hydralazine HCl 10 mg Q6HP PRN IV 01/30/24 13:15 02/05/24 02:46 10 MG Acetaminophen 650 mg Q4HP PRN PO 01/31/24 07:30 02/01/24 12:21 650 MG Furosemide 40 mg BIDD IV 02/02/24 10:30 02/11/24 16:56 40 MG Amino Acids 0 ml @ 0 mls/hr PER PHARMACY IV 02/03/24 12:15 Cefepime HCl 50 ml @ 12.5 mls/hr Q8HR IV 02/04/24 14:00 02/11/24 22:11 12.5 MLS/HR Diagnostic Test (Pha) 1 strip Q6HR 02/05/24 18:00 02/11/24 16:50 1 STRIP Dextrose 50 ml UD PRN IV 02/05/24 13:15 Insulin Human Regular Q6HR SC 02/05/24 15:15 02/11/24 17:48 4 UNITS Fentanyl Citrate 250 ml @ 2.5 mls/hr Q24H IV 02/07/24 08:15 02/11/24 17:41 25 MLS/HR Methylprednisolone Sodium Succinate 40 mg Q8HR IV 02/07/24 22:00 02/11/24 22:09 40 MG Quetiapine Fumarate 100 mg BID PO 02/07/24 22:00 02/11/24 22:19 100 MG Insulin Glargine 30 units BID@1000,2200 SC 02/08/24 22:00 02/11/24 22:04 30 UNITS Lactulose 30 ml Q6HR PO 02/09/24 18:00 02/11/24 12:48 30 ML Dexmedetomidine HCl 400 mcg/ Dextrose 100 ml @ 7.25 mls/hr [id number] IV 02/09/24 18:00 Diltiazem HCl 30 mg BID GT 02/10/24 22:00 02/11/24 07:49 30 MG Norepinephrine Bitartrate 250 ml @ 3.75 mls/hr Q24H IV 02/11/24 10:45 Fat Emulsion Intravenous 100 ml/Sodium Chloride 40 meq/ Sodium Phosphate 20 meq/Potassium Chloride 60 meq/ Magnesium Sulfate 16 meq/ Multivitamins 10 ml/Insulin Human Regular 48 units/ Amino Acids/ Dextrose/Purified Water 1,559.48 ml @ 65 mls/hr Q24H IV 02/11/24 22:00 02/12/24 21:59 02/11/24 22:03 65 MLS/HR objective Gen.: Patient lying in bed in medical ICU. Sedated, intubated on mechanical ventilator. Head: Normocephalic, atraumatic. Eyes: PERRLA. Ears: Normal external anatomy. Throat: Endotracheal tube and orogastric tube in place. Neck: Supple, trachea midline. Chest: Transmitted breath sounds bilaterally. Decreased air entry bilaterally. No wheezing. Bibasilar crackles. Cardiovascular: Positive S1, positive S2. Regular rate and rhythm. Abdomen: Positive bowel sounds in all 4 quadrants. Soft, nontender, nondistended. : Reyes in place. Normal external genitalia. Rectal: Deferred. Skin: Warm, dry. Intact. Extremities: 2+ radial pulses bilaterally. No lower extremity edema. Neuro: Sedated. laboratory and microbiology Laboratory Tests 02/11/24 07:19 02/11/24 03:00 Test 02/11/24 03:00 Range/Units Serum Glucose 298 H 74-106 mg/dL Assessment/Plan Impression: Acute hypoxic respiratory failure On mechanical ventilator Acute exacerbation of asthma Elevated Troponin Schizophrenia Autism Cannabinoid Use Morbid obesity BMI 60.5 Pulmonary edema Events: Remains on vent support On AC mode with RR 26, VT 500, PEEP 8, FiO2 30% Sedated on Versed, Fentanyl Remains off Rocuronium drip Leukocytosis - monitor WBC ABG reviewed. Compensated. CXR demonstrates devices in place; pulmonary edema. Seroquel 100 mg q.12 hours. Continue bronchodilators IV steroids Continue antibiotics TPN for nutritional support Diurese to euvolemia - Lasix BID Monitor renal function Monitor electrolytes. Supplement as necessary. Monitor ins and outs. Plan for CPAP in AM - PS 8, PEEP of 5 Taper sedation as tolerated Recommend trach/PEG to liberate from vent. Bronchoscopy w/ RML BAL was performed on 02/05/24. Cultures grew Klebsiella pneumoniae. Labs and imaging reviewed. Rest of plan as noted below. Plan: s/p intubation on mechanical ventilator. On AC mode with RR 26, VT 500, PEEP 8, FiO2 30% Titrate FIO2 to keep O2 saturation above 90%. VAP bundle. Daily ABG and CXR while intubated Sedate for ventilator synchrony Pt does not tolerate turns. Derecruitment. Turn carefully. Elevated Troponin - Cardiology recs appreciated. Continue bronchodilators Antibiotics. F/u cultures. Pressors if necessary for hemodynamic support Titrate to keep mean arterial pressure greater than 65 mmHg. Currently off pressors, hemodynamically stable. Diurese to euvolemia Monitor renal function Monitor electrolytes. Supplement as necessary. Monitor ins and outs. Diet and lifestyle modifications for weight reduction Morbid obesity - complicates all care GI prophylaxis. DVT prophylaxis. Prognosis: Poor given patient's multiple co-morbidities. Condition: Critical Rest of plan per hospitalist and other consultants. A total of 35 minutes of critical care time was spent reviewing the patient record, examining the patient, making a diagnostic and therapeutic plan, discussing this plan with the medical personnel, following up on diagnostic studies and following the patient for clinical stability excluding any and all procedures. At least 50% of this time was spent in direct, [id number] contact. Thank you Irma Velasquez NP, for allowing me to participate in this patient's care. Further recommendations will depend on the patient's clinical course. Please do not hesitate to contact me if you have any questions or concerns. This medical document was created using an electronic medical record system with [employer] dictation system. Although these documentations are being carefully reviewed, there may still be some phonetic and typographical changes. The errors are purely typographical, due to imperfection on the software program, and do not reflect any compromise in the patient's medical care. Dietary Evaluation Review Comments: Current Jevity 1.2 @60ml/hr TF is meeting pt's need for protein at 60% for energy at 117% Continue monitor nutrition progress of nutrition support to meet 75% of his needs. Advance to a cardiac diet, texture as tolerated when medically feasible. Expected Outcomes/Goals: gradual weight loss Plan discussed with: Other (SAIGE Noel) Critical Care Time(min): 35 Date of Reassessment: Feb 11, 2024 VERÓNICA MERCER MD Feb 11, 2024 23:30
[2024-02-12] VITALS (120 sets, daily range): BP systolic 77–139; BP diastolic 27–89; PULSE 59–132; RESP 17–37; TEMP 98.2–100.9; O2SAT 93–100
[2024-02-12 03:58] LABS: Lymphocytes # (auto) 0.4 10 ^3/uL (0.4-5.4); Lymphocytes % (auto) 1.6 % (10.0-50.0); Platelet Count (auto) 167 10^3/uL (140-450)
[2024-02-12 04:00] LABS: Basophils # (auto) 0.3 10 ^3/uL (0-0.2); Basophils % (auto) 1.5 % (0.0-2.0); Eosinophils # (auto) 0.1 10 ^3/uL (0-0.8); Eosinophils % (auto) 0.2 % (0.0-7.0); Hematocrit 40.3 % (41.0-53.0); Hemoglobin 12.1 g/dL (13.5-17.5); Mean Corpuscular Hemoglobin 22.2 pg (28.0-32.0); Mean Corpuscular Hgb Conc. 30.1 g/dL (32.0-36.0); Mean Corpuscular Volume 73.8 fL (80.0-100.0); Monocytes # (auto) 0.6 10 ^3/uL (0-1.3); Monocytes % (auto) 2.4 % (0.0-12.0); Neutrophils # (auto) 22.1 10 ^3/uL (1.6-8.6); Neutrophils % (auto) 94.3 % (37.0-80.0); Nucleated Red Blood Cells % 0.1 %; Red Blood Cells 5.47 10^6/uL (4.5-5.90); Red Cell Distribution Width 19.3 % (11.8-14.3); White Blood Cell 23.4 10^3/uL (4.4-10.8)
[2024-02-12 04:15] LABS: Albumin 3.7 g/dL (3.2-4.8); Anion Gap 7 (5-15); BUN/Creatinine Ratio 94.7 (10.0-20.0); Calcium 9.5 mg/dL (8.7-10.4); Carbon Dioxide 27 mmol/L (20-31); Chloride 106 mmol/L (98-107); Magnesium 1.9 mg/dL (1.6-2.6); Phosphorus 3.6 mg/dL (2.4-5.1); Potassium 4.3 mmol/L (3.5-5.1); Sodium 140 mmol/L (136-145); Total Protein 6.2 g/dL (5.7-8.2)
[2024-02-12 04:35] LABS: Alanine Aminotransferase 211 U/L (7-40); Alkaline Phosphatase 136 U/L (46-116); Aspartate Aminotransferase 65 U/L (13-40); Blood Urea Nitrogen 36 mg/dL (9-23); Glucose 280 mg/dL (74-106)
--- NOTE | 2024-02-12 05:45 | DVH ---
CHEST RADIOGRAPH Indication: INTUBATED Technique: Single frontal view of the chest was obtained Comparison: XY CHEST PORTABLE on DOS: 02/11/24 FINDINGS: Lines and Tubes: The endotracheal tube terminates 4.6 cm above the zbigniew. Left central venous cathet er terminates in the region of the SVC / brachiocephalic junction. The enteric tube terminates in the region of the stomach. Lungs: Patchy bilateral consolidation. Pleura: No effusion. No pneumothorax. Cardiomediastinal contours: Cardiomegaly. Bones: No acute osseous abnormality. IMPRESSION: 1. Support lines and tubes as described. 2. Patchy diffuse bilateral consolidation similar to prior study.
--- NOTE | 2024-02-12 07:36 | DVHPN2 ---
Progress Note - Dictate Date Seen: Feb 12, 2024 Medical Necessity Reason Pt with a Central, PICC or Fol: Yes The following are medically ne: Reyes Catheter Reason for reyes catheter: Strict I&O vital signs Vital Sign Date Time Temp Pulse Resp B/P (MAP) Pulse Ox O2 Delivery O2 Flow Rate FiO2 02/12/24 07:01 100.2 79 26 97/54 (68) 100 212.4 02/12/24 06:12 30 02/12/24 06:00 Mechanical Ventilator+ Total Intake and Output 02/11/24 02/11/24 02/12/24 15:00 23:00 07:00 Intake Total 847.0 ml 792.5 ml 761.25 ml Output Total 1400 ml 1700 ml Balance 847.0 ml -607.5 ml -938.75 ml medications Current Medications Medications Dose Ordered Sig/Reji Route Start Time Stop Time Status Last Admin Dose Admin Ondansetron HCl 4 mg Q4HP PRN IV 01/19/24 20:15 Pantoprazole Sodium 40 mg DAILY IV 01/20/24 10:00 02/11/24 07:49 40 MG Nitroglycerin 0.4 mg Q5MINP PRN SL 01/19/24 20:15 Midazolam HCl 50 ml @ 1 mls/hr Q24H IV 01/19/24 21:30 02/12/24 06:10 3 MLS/HR Aspirin 81 mg DAILY NG 01/20/24 10:00 02/11/24 07:49 81 MG Atorvastatin Calcium 40 mg HS PO 01/20/24 22:00 02/11/24 22:19 40 MG Latanoprost 1 drop QPM EACHEYE 01/20/24 18:00 02/10/24 17:44 1 DROP Patient Own Medication 400 mg MONTHLY IM 01/20/24 11:30 Lisinopril 20 mg DAILY PO 01/20/24 11:30 02/11/24 07:50 20 MG Nitroglycerin 250 ml @ 1.5 mls/hr Q24H IV 01/20/24 20:30 Albuterol 2.5 mg Q4HR NEB 01/20/24 22:00 02/12/24 06:12 2.5 MG Ipratropium [place] 0.5 mg Q4HR NEB 01/20/24 22:00 02/12/24 06:12 0.5 MG Enteral Nutritional Formula 1,000 ml 60ML/HR GT 01/22/24 14:00 02/01/24 20:06 1,000 ML Vancomycin HCl 300 ml @ 200 mls/hr Q8H IV 01/28/24 02:00 Cancel Metoclopramide HCl 10 mg Q8HR IV 01/28/24 14:00 02/12/24 06:12 10 MG Docusate Sodium 100 mg BID GT 01/28/24 22:00 02/11/24 22:19 100 MG Hydralazine HCl 10 mg Q6HP PRN IV 01/30/24 13:15 02/05/24 02:46 10 MG Acetaminophen 650 mg Q4HP PRN PO 01/31/24 07:30 02/12/24 06:17 650 MG Furosemide 40 mg BIDD IV 02/02/24 10:30 02/12/24 06:12 40 MG Amino Acids 0 ml @ 0 mls/hr PER PHARMACY IV 02/03/24 12:15 Cefepime HCl 50 ml @ 12.5 mls/hr Q8HR IV 02/04/24 14:00 02/12/24 06:05 12.5 MLS/HR Diagnostic Test (Pha) 1 strip Q6HR 02/05/24 18:00 02/12/24 06:17 1 STRIP Dextrose 50 ml UD PRN IV 02/05/24 13:15 Insulin Human Regular Q6HR SC 02/05/24 15:15 02/12/24 06:19 8 UNITS Fentanyl Citrate 250 ml @ 2.5 mls/hr Q24H IV 02/07/24 08:15 02/12/24 04:17 17.5 MLS/HR Methylprednisolone Sodium Succinate 40 mg Q8HR IV 02/07/24 22:00 02/12/24 06:12 40 MG Quetiapine Fumarate 100 mg BID PO 02/07/24 22:00 02/11/24 22:19 100 MG Insulin Glargine 30 units BID@1000,2200 SC 02/08/24 22:00 02/11/24 22:04 30 UNITS Lactulose 30 ml Q6HR PO 02/09/24 18:00 02/12/24 06:16 30 ML Dexmedetomidine HCl 400 mcg/ Dextrose 100 ml @ 7.25 mls/hr [id number] IV 02/09/24 18:00 02/12/24 00:22 7.25 MLS/HR Diltiazem HCl 30 mg BID GT 02/10/24 22:00 02/11/24 07:49 30 MG Norepinephrine Bitartrate 250 ml @ 3.75 mls/hr Q24H IV 02/11/24 10:45 Fat Emulsion Intravenous 100 ml/Sodium Chloride 40 meq/ Sodium Phosphate 20 meq/Potassium Chloride 60 meq/ Magnesium Sulfate 16 meq/ Multivitamins 10 ml/Insulin Human Regular 48 units/ Amino Acids/ Dextrose/Purified Water 1,559.48 ml @ 65 mls/hr Q24H IV 02/11/24 22:00 02/12/24 21:59 02/11/24 22:03 65 MLS/HR laboratory and microbiology Laboratory Tests 02/12/24 03:40 Test 02/12/24 03:40 Range/Units Serum Glucose 280 H 74-106 mg/dL Assessment/Plan Patient is 28 year old morbidly obese male who presented to ED with shortness of breath. He has been intubated for respiratory failure and in on vent. support. Information was obtained by reviewing the chart and communicating with staff. Cardiology is involved for cardiac aspects of care. There is no report of chest pain prior to presentation. Reportedly, patient has been intubated for skilled nursing previously for Asthma in other institution. Intubated and on vent support. Morbidly obese. Does have right sided subclavian access. No JVD. Mucosa is pink and wet. No goiter. Scattered rhonchi is heard. Cardiac: RR, no thrill, no gallop. Abdomen is soft, obese and distended. BS is +. Ext reveal 2+ edema bilaterally. DP is 2+ bilateral PMH reportedly includes Morbid obesity, Asthma (with previous intubations), Autism, Schizophrenia and ANNETTE. Smokes Marijuana and drinks alcohol WBC: 11.6 to 11.2 to 14.2 to 12.2 to 13.3 to 16.4 to 17.5 to 15.3 to 13.8 to 15.7 to 13.8 - 22.2 to 22.3 to 16.3 - 20.1 - 20.7 - 23.8 - 23.4 D-dimer: 0.43 (wnl) Creat: 0.73 - 0.70 - 0.67 - 0.76 - 0.71 - 0.70 - 0.69 - 0.59 - 0.60 - 0.52 - 0.50 - 0.47 - 0.47 - 0.62 - 0.42 - 0.39 - 0.51 - 0.52 - 0.46 - 0.38 - 0.41 - 0.43 - 0.41 K: 4.1 - 4.3 - 4.1 - 4.2 - 4.0 - 4.1 - 4.1 - 3.9 - 4.0 - 3.8 - 4.3 - 4.7 - 4.4 - 4.4 - 4.3 - 4.3 - 4.1 - 3.6 - 4.9 - 4.6 - 4.4 - 4.4 - 4.2 - 3.8 BNP: 561.97 - 173.31 Trop (high sensitive): 61 - 62 - 131 - 132 - 91 - 82 TSH: 0.48 Urine toxicology was positive for Cannabinoids and Benzodiazpin Chest xry revealed: FINDINGS: Lines and Tubes: None Lungs: Obscuration of the left hemidiaphragm Diffuse interstitial prominence. No pneumothorax. Cardiomediastinal contours: Moderate cardiomegaly Bones: No acute osseous abnormality. IMPRESSION: Moderate cardiomegaly with findings suggestive of congestive heart failure. Possible left-sided pleural effusion. Repeat chest xry revealed: Endotracheal tube projects terminating 1.8 cm superior to the zbigniew. Enteric tube is projecting below the GE junction without visualization of the port or tip. Low lung volumes with bronchovascular crowding. Possible small left-sided pleural effusion and/or atelectasis. No pneumothorax. Repeat chest xry revealed: Cardiomediastinal silhouette is enlarged. There is increased pulmonary vascular congestion, similar prior examination. Obscuration of the left hemidiaphragm may be on the basis of technique versus small pleural effusion. No discrete pneumothorax. Endotracheal tube and enteric tube are redemonstrated. Left IJ catheter tip is likely at the region of the brachiocephalic vein. Repeat chest xry revealed: FINDINGS: Cardiomediastinal silhouette is enlarged. There is increased pulmonary vascular congestion, similar prior examination. Obscuration of the left hemidiaphragm may be on the basis of technique versus small pleural effusion. No discrete pneumothorax. Endotracheal tube and enteric tube are redemonstrated. Left IJ catheter tip is likely at the region of the brachiocephalic vein. IMPRESSION: NO INTERVAL CHANGE. Repeat chest xry revealed: IMPRESSION: Improving pulmonary edema compared to prior exam. Repeat chest xry revealed: IMPRESSION: stable pulmonary edema compared to prior exam. Repeat chest xry revealed: IMPRESSION: Lines and tubes in satisfactory position. No significant interval change. Repeat chest xry revealed: IMPRESSION: Lines and tubes in satisfactory position. No significant interval change. Repeat chest xry revealed: IMPRESSION: Lines and tubes in satisfactory position. No significant interval change. Repeat chest xry: IMPRESSION: 1. Stable position of the support lines and tubes. 2. No significant change in diffuse bilateral airspace opacities. Repeat chest xry revealed: IMPRESSION: 1. Endotracheal tube terminates 6.4 symbol the zbigniew. 2. Bilateral airspace disease unchanged. Repeat chest xry revealed: IMPRESSION: 1. Endotracheal tube 4.1 cm above the zbigniew. 2. OG tube not visualized AND may BE IN THE RIGHT MAINSTEM BRONCHUS RECOMMEND REMOVAL AND REPOSITIONING WITH REPEAT CHEST X-RAY. Repeat chest xry revealed: FINDINGS: Endotracheal tube in place 4.4 cm above the zbigniew. Left internal jugular catheter in place in the superior vena cava. Cardiomegaly is noted with pulmonary vascular congestion findings may represent congestive failure other possibility such as pneumonia are in the differential. IMPRESSION: 1. Cardiomegaly with findings of pulmonary vascular congestion. Findings may represent congestive failure or pneumonia. Repeat chest xry revealed: Lines and Tubes: The endotracheal tube terminates 3.1 cm above the zbigniew. Left central venous catheter terminates in the superior vena cava. Enteric tube is visualized to the mid chest but not visualized below the left hemidiaphragm. Lungs: Bilateral airspace disease. Pleura: No effusion. No pneumothorax. Cardiomediastinal contours: Stable cardiomegaly. Bones: No acute osseous abnormality. IMPRESSION: 1. Enteric tube not visualized below the left hemidiaphragm. 2. Bilateral airspace disease similar to prior exam. Repeat chest xry revealed: Limited evaluation given patient positioning. The heart appears markedly enlarged. There are low lung volumes with moderate alveolar airspace opacities suggesting pulmonary edema. No discrete pneumothorax. Endotracheal tube appear stable. Enteric tube is not well visualized. Repeat chest xry revealed: IMPRESSION: 1. Stable appearance of the support lines and tubes. 2. Pulmonary opacities, unchanged. Repeat chest xry revealed: Evaluation limited by patient body habitus. Lines and Tubes: The endotracheal tube terminates 5.7 cm above the zbigniew. Left central venous catheter is unchanged in position. Enteric tube courses below the left hemidiaphragm and outside the field of view. Lungs: Bilateral airspace disease similar to prior study. Pleura: Possible bilateral pleural effusions. No pneumothorax. Cardiomediastinal contours: Stable. Bones: No acute osseous abnormality. IMPRESSION: 1. No significant interval change. Repeat chest xry revealed: IMPRESSION: Right lower lobe pneumonia. Repeat chest xry revealed: IMPRESSION: 1. Right middle lobe consolidation which may represent pneumonia. 2. Pulmonary congestion. 3. Obscuration of the left hemidiaphragm for which left pleural effusion is not excluded. 4. Stable cardiomegaly. Repeat chest xry revealed: Low lung volumes limits evaluation. Bilateral airspace opacities are unchanged. Likely small left pleural effusion. No pneumothorax visualized. Stable satisfactory positioning of the endotracheal tube and enteric tube. Stable positioning of the left internal jugular central venous catheter, with the tip at the level of the left brachiocephalic vein. IMPRESSION: No significant interval change as detailed above. Repeat chest xray revealed: IMPRESSION: Lines and tubes in satisfactory position. No significant interval change. Repeat chest xry revealed: IMPRESSION: Heart is enlarged. Patchy airspace opacity in the right lower lung appear similar. Moderate pulmonary vascular congestion. Support lines and tubes appear unchanged. No significant interval change. Repeat chest xry revealed: IMPRESSION: 1. Support lines and tubes as described. 2. Patchy diffuse bilateral consolidation similar to prior study. KUB revealed: Impression: 1. Nonobstructive bowel gas pattern. 2. Enteric tube overlying the plane of the stomach. 3. No visualized renal calculi. Venous duplex of lower ext revealed: Impression: 1. No right or left femoropopliteal venous thrombosis. 2. Left common femoral vein and proximal superficial femoral vein are not visible and therefore thrombus can not be excluded in those areas. EKG revealed: Sinus tachycardia with non-specific STT changes Tele reveals Sinus rhythm Echocardiogram revealed: Technically limited study secondary to poor acoustic windows. Left ventricle: Left ventricle was normal-sized with normal systolic function. LVEF was 60-65%. There was no gross wall motion abnormality observed. Right ventricle was not well visualized but it was dilated. Left atrium was normal-sized. Right atrium was not well visualized. Aortic valve was trileaflet and normal. There was no aortic insufficiency/stenosis. There was trivial mitral and tricuspid regurgitation. There was mild pulmonary valve insufficiency. As there was no good tricuspid regurgitation jet, right ventricular systolic pressure could not be estimated. There was no pericardial effusion. Patient is 28 year old male with history of morbid obesity who presented with respiratory failure. Does have history of Asthma and reportedly has been intubated for it before. Trop has been mildly elevated. ACS is less likely and increase in troponin most likely represents demand physiology. Still, component of type 1 physiology cannot be completely ruled out. Echo revealed dilated RV. As there was no good TR jet, RVSP could not be estimated. Pulmonary Hypertension cannot be ruled out. Pulmonary on board. On sedation. ID on board Acute respiratory failure Asthma Asthma exacerbation Morbid obesity Abnormal trop Questionable heart failure, acute Pneumonia s/p bronchoscopy Cardiac suggestion for management: Manage in ICU IV diuresis Follow up electrolytes and kidney function test and correct abnormalities. Keep potassium above 4 and magnesium above 2 Lovenox ASA Follow up vital signs and correct hyper/hypotension. If needed add pressure support to keep MAP above 65 mmHg Pulmonary follow up Further evaluation and management depends on the above and clinical course A total of 75 minutes was spent reviewing the patient record, examining the patient, making a diagnostic and therapeutic plan, discussing this plan with medical personnel, following up on diagnostic studies and following the patient for clinical stability excluding any and all procedures. At least 50% of this time was spent in direct, [id number] contact. Thank you for allowing me to participate in this patient's care. Further recommendations will depend on patient's clinical course. Please do not hesitate to contact me if you have any questions or concerns. This medical document was created using electronic medical record system with [employer] computerized dictation system. Although this document has been carefully reviewed, there may still be some phonetic and typographical errors. These areas are purely typographical due to the imperfection of the software programs, and do not reflect any compromise in the patient's medical care. Dietary Evaluation Review Comments: Current Jevity 1.2 @60ml/hr TF is meeting pt's need for protein at 60% for energy at 117% Continue monitor nutrition progress of nutrition support to meet 75% of his needs. Advance to a cardiac diet, texture as tolerated when medically feasible. Expected Outcomes/Goals: gradual weight loss Plan discussed with: Other (nurse) Date of Reassessment: Feb 11, 2024 PARRIS MCKINNON MD Feb 12, 2024 07:36
[2024-02-12 10:40] LABS: Base Excess 0.6 mmol/L (-2.0-3.0)
--- NOTE | 2024-02-12 11:57 | DVHPN2 ---
Progress Note - Dictate Date Seen: Feb 12, 2024 Medical Necessity Reason Pt with a Central, PICC or Fol: Yes The following are medically ne: Reyes Catheter Reason for reyes catheter: Strict I&O vital signs Vital Sign Date Time Temp Pulse Resp B/P (MAP) Pulse Ox O2 Delivery O2 Flow Rate FiO2 02/12/24 10:31 100.9 67 26 110/57 (74) 100 213.6 02/12/24 09:59 30 02/12/24 09:55 Mechanical Ventilator+ Total Intake and Output 02/11/24 02/11/24 02/12/24 15:00 23:00 07:00 Intake Total 847.0 ml 792.5 ml 761.25 ml Output Total 1400 ml 1700 ml Balance 847.0 ml -607.5 ml -938.75 ml medications Current Medications Medications Dose Ordered Sig/Reji Route Start Time Stop Time Status Last Admin Dose Admin Ondansetron HCl 4 mg Q4HP PRN IV 01/19/24 20:15 Pantoprazole Sodium 40 mg DAILY IV 01/20/24 10:00 02/12/24 07:43 40 MG Nitroglycerin 0.4 mg Q5MINP PRN SL 01/19/24 20:15 Midazolam HCl 50 ml @ 1 mls/hr Q24H IV 01/19/24 21:30 02/12/24 06:10 3 MLS/HR Aspirin 81 mg DAILY NG 01/20/24 10:00 02/12/24 07:44 81 MG Atorvastatin Calcium 40 mg HS PO 01/20/24 22:00 02/11/24 22:19 40 MG Latanoprost 1 drop QPM EACHEYE 01/20/24 18:00 02/10/24 17:44 1 DROP Patient Own Medication 400 mg MONTHLY IM 01/20/24 11:30 Lisinopril 20 mg DAILY PO 01/20/24 11:30 02/11/24 07:50 20 MG Nitroglycerin 250 ml @ 1.5 mls/hr Q24H IV 01/20/24 20:30 Albuterol 2.5 mg Q4HR NEB 01/20/24 22:00 02/12/24 09:59 2.5 MG Ipratropium [place] 0.5 mg Q4HR NEB 01/20/24 22:00 02/12/24 09:59 0.5 MG Enteral Nutritional Formula 1,000 ml 60ML/HR GT 01/22/24 14:00 02/01/24 20:06 1,000 ML Vancomycin HCl 300 ml @ 200 mls/hr Q8H IV 01/28/24 02:00 Cancel Metoclopramide HCl 10 mg Q8HR IV 01/28/24 14:00 02/12/24 11:50 10 MG Docusate Sodium 100 mg BID GT 01/28/24 22:00 02/12/24 07:43 100 MG Hydralazine HCl 10 mg Q6HP PRN IV 01/30/24 13:15 02/05/24 02:46 10 MG Acetaminophen 650 mg Q4HP PRN PO 01/31/24 07:30 02/12/24 06:17 650 MG Furosemide 40 mg BIDD IV 02/02/24 10:30 02/12/24 06:12 40 MG Amino Acids 0 ml @ 0 mls/hr PER PHARMACY IV 02/03/24 12:15 Cefepime HCl 50 ml @ 12.5 mls/hr Q8HR IV 02/04/24 14:00 02/12/24 11:50 12.5 MLS/HR Diagnostic Test (Pha) 1 strip Q6HR 02/05/24 18:00 02/12/24 11:50 1 STRIP Dextrose 50 ml UD PRN IV 02/05/24 13:15 Insulin Human Regular Q6HR SC 02/05/24 15:15 02/12/24 06:19 8 UNITS Fentanyl Citrate 250 ml @ 2.5 mls/hr Q24H IV 02/07/24 08:15 02/12/24 04:17 17.5 MLS/HR Methylprednisolone Sodium Succinate 40 mg Q8HR IV 02/07/24 22:00 02/12/24 11:50 40 MG Quetiapine Fumarate 100 mg BID PO 02/07/24 22:00 02/12/24 07:44 100 MG Insulin Glargine 30 units BID@1000,2200 SC 02/08/24 22:00 02/12/24 07:36 30 UNITS Lactulose 30 ml Q6HR PO 02/09/24 18:00 02/12/24 11:50 30 ML Dexmedetomidine HCl 400 mcg/ Dextrose 100 ml @ 7.25 mls/hr [id number] IV 02/09/24 18:00 02/12/24 07:41 10.875 MLS/HR Diltiazem HCl 30 mg BID GT 02/10/24 22:00 02/12/24 07:44 30 MG Norepinephrine Bitartrate 250 ml @ 3.75 mls/hr Q24H IV 02/11/24 10:45 Fat Emulsion Intravenous 100 ml/Sodium Chloride 40 meq/ Sodium Phosphate 20 meq/Potassium Chloride 60 meq/ Magnesium Sulfate 16 meq/ Multivitamins 10 ml/Insulin Human Regular 48 units/ Amino Acids/ Dextrose/Purified Water 1,559.48 ml @ 65 mls/hr Q24H IV 02/11/24 22:00 02/12/24 21:59 02/11/24 22:03 65 MLS/HR Fat Emulsion Intravenous 150 ml/Sodium Chloride 30 meq/ Sodium Phosphate 20 meq/Potassium Chloride 40 meq/ Magnesium Sulfate 20 meq/ Multivitamins 10 ml/Insulin Human Regular 50 units/ Amino Acids/ Dextrose/Purified Water 1,698 ml @ 70 mls/hr [id number] IV 02/12/24 22:00 02/13/24 21:59 objective General Appearance: alert, no distress HEENT: EOMI, PERRLA, normal external inspect of ears, no icterus, no nasal drainage Neck: no carotid bruit, no jugular venous distention (JVD), no lymphadenopathy Chest: normal thorax Respiratory: clear to auscultation Cardiovascular: regular rate and rhythm, no diastolic murmur, no jugular venous distention (JVD), no rub, no systolic murmur Abdominal: soft, no hepatomegaly, no mass, no splenomegaly, no tenderness Genitourinary: grossly normal external Musculoskeletal: no joint tenderness, no swelling Extremities: normal pulses, no calf tenderness, no clubbing, no cyanosis, no edema Skin: no bruising, no jaundice, no rash Neurological: alert, No focal deficit laboratory and microbiology Laboratory Tests 02/12/24 03:40 Test 02/12/24 03:40 Range/Units Serum Glucose 280 H 74-106 mg/dL Problem List 1. Asthma with acute exacerbation Pulmonary consult, monitoring 2. Acute hypoxic respiratory failure requiring intubation Pulmonary Consult 3. Schizophrenia Monitoring 4. Autism Medication, monitoring 5. Elevated Troponin Cardiology Consult, monitoring 6. Cannabis Use Education Assessment/Plan Subjective Patient is currently able to follow commands. Objective Patient remains on sedation with Precedex, Versed, and fentanyl. Patient is on CPAP and currently doing well. Patient is slightly tachypneic. Patient was admitted in January 19, 2024 for acute asthma exacerbation, pneumonia, sepsis, and possible CHF. Patient was seen by cardiology as well as infectious disease and pulmonary. Patient has underlying schizophrenia. Plan Patient to continue CPAP per pulmonary. Patient has been on the ventilator for 24 days. LTAC evaluation. Dietary Evaluation Review Comments: Current Jevity 1.2 @60ml/hr TF is meeting pt's need for protein at 60% for energy at 117% Continue monitor nutrition progress of nutrition support to meet 75% of his needs. Advance to a cardiac diet, texture as tolerated when medically feasible. Expected Outcomes/Goals: gradual weight loss Plan discussed with: Patient, Other Date of Reassessment: Feb 11, 2024 VIK COBOS NP Feb 12, 2024 11:57
--- NOTE | 2024-02-12 16:52 | DVHPN2 ---
Progress Note - Dictate Date Seen: Feb 12, 2024 Medical Necessity Reason Pt with a Central, PICC or Fol: Yes The following are medically ne: Reyes Catheter Reason for reyes catheter: Strict I&O Subjective Patient remains intubated. No new acute complaints noted at this time. WBC trending up vital signs Vital Sign Date Time Temp Pulse Resp B/P (MAP) Pulse Ox O2 Delivery O2 Flow Rate FiO2 02/12/24 16:16 99.7 62 29 100/56 (71) 96 211.5 02/12/24 15:50 Mechanical Ventilator+ 30 30 Total Intake and Output 02/11/24 02/11/24 02/12/24 15:00 23:00 07:00 Intake Total 847.0 ml 792.5 ml 761.25 ml Output Total 1400 ml 1700 ml Balance 847.0 ml -607.5 ml -938.75 ml medications Current Medications Medications Dose Ordered Sig/Reji Route Start Time Stop Time Status Last Admin Dose Admin Ondansetron HCl 4 mg Q4HP PRN IV 01/19/24 20:15 Pantoprazole Sodium 40 mg DAILY IV 01/20/24 10:00 02/12/24 07:43 40 MG Nitroglycerin 0.4 mg Q5MINP PRN SL 01/19/24 20:15 Midazolam HCl 50 ml @ 1 mls/hr Q24H IV 01/19/24 21:30 02/12/24 06:10 3 MLS/HR Aspirin 81 mg DAILY NG 01/20/24 10:00 02/12/24 07:44 81 MG Atorvastatin Calcium 40 mg HS PO 01/20/24 22:00 02/11/24 22:19 40 MG Latanoprost 1 drop QPM EACHEYE 01/20/24 18:00 02/10/24 17:44 1 DROP Patient Own Medication 400 mg MONTHLY IM 01/20/24 11:30 Lisinopril 20 mg DAILY PO 01/20/24 11:30 02/11/24 07:50 20 MG Nitroglycerin 250 ml @ 1.5 mls/hr Q24H IV 01/20/24 20:30 Albuterol 2.5 mg Q4HR NEB 01/20/24 22:00 02/12/24 14:30 2.5 MG Ipratropium [place] 0.5 mg Q4HR NEB 01/20/24 22:00 02/12/24 14:30 0.5 MG Enteral Nutritional Formula 1,000 ml 60ML/HR GT 01/22/24 14:00 02/01/24 20:06 1,000 ML Vancomycin HCl 300 ml @ 200 mls/hr Q8H IV 01/28/24 02:00 Cancel Metoclopramide HCl 10 mg Q8HR IV 01/28/24 14:00 02/12/24 11:50 10 MG Docusate Sodium 100 mg BID GT 01/28/24 22:00 02/12/24 07:43 100 MG Hydralazine HCl 10 mg Q6HP PRN IV 01/30/24 13:15 02/05/24 02:46 10 MG Acetaminophen 650 mg Q4HP PRN PO 01/31/24 07:30 02/12/24 06:17 650 MG Furosemide 40 mg BIDD IV 02/02/24 10:30 02/12/24 06:12 40 MG Amino Acids 0 ml @ 0 mls/hr PER PHARMACY IV 02/03/24 12:15 Cefepime HCl 50 ml @ 12.5 mls/hr Q8HR IV 02/04/24 14:00 02/12/24 11:50 12.5 MLS/HR Diagnostic Test (Pha) 1 strip Q6HR 02/05/24 18:00 02/12/24 11:50 1 STRIP Dextrose 50 ml UD PRN IV 02/05/24 13:15 Insulin Human Regular Q6HR SC 02/05/24 15:15 02/12/24 12:08 12 UNITS Fentanyl Citrate 250 ml @ 2.5 mls/hr Q24H IV 02/07/24 08:15 02/12/24 04:17 17.5 MLS/HR Methylprednisolone Sodium Succinate 40 mg Q8HR IV 02/07/24 22:00 02/12/24 11:50 40 MG Quetiapine Fumarate 100 mg BID PO 02/07/24 22:00 02/12/24 07:44 100 MG Insulin Glargine 30 units BID@1000,2200 SC 02/08/24 22:00 02/12/24 07:36 30 UNITS Lactulose 30 ml Q6HR PO 02/09/24 18:00 02/12/24 11:50 30 ML Dexmedetomidine HCl 400 mcg/ Dextrose 100 ml @ 7.25 mls/hr [id number] IV 02/09/24 18:00 02/12/24 07:41 10.875 MLS/HR Diltiazem HCl 30 mg BID GT 02/10/24 22:00 02/12/24 07:44 30 MG Norepinephrine Bitartrate 250 ml @ 3.75 mls/hr Q24H IV 02/11/24 10:45 Fat Emulsion Intravenous 100 ml/Sodium Chloride 40 meq/ Sodium Phosphate 20 meq/Potassium Chloride 60 meq/ Magnesium Sulfate 16 meq/ Multivitamins 10 ml/Insulin Human Regular 48 units/ Amino Acids/ Dextrose/Purified Water 1,559.48 ml @ 65 mls/hr Q24H IV 02/11/24 22:00 02/12/24 21:59 02/11/24 22:03 65 MLS/HR Fat Emulsion Intravenous 150 ml/Sodium Chloride 30 meq/ Sodium Phosphate 20 meq/Potassium Chloride 40 meq/ Magnesium Sulfate 20 meq/ Multivitamins 10 ml/Insulin Human Regular 50 units/ Amino Acids/ Dextrose/Purified Water 1,698 ml @ 70 mls/hr [id number] IV 02/12/24 22:00 02/13/24 21:59 objective Gen.: Patient lying in bed in medical ICU. Sedated, intubated on mechanical ventilator. Head: Normocephalic, atraumatic. Eyes: PERRLA. Ears: Normal external anatomy. Throat: Endotracheal tube and orogastric tube in place. Neck: Supple, trachea midline. Chest: Decreased air entry bilaterally. No wheezing. Bibasilar crackles. Cardiovascular: Positive S1, positive S2. Regular rate and rhythm. Abdomen: . Soft, nontender, nondistended. : Reyes in place. Normal external genitalia. Rectal: Deferred. Skin: Warm, dry. Intact. Extremities: No lower extremity edema. Neuro: Sedated. laboratory and microbiology Laboratory Tests 02/12/24 03:40 Test 02/12/24 03:40 Range/Units Serum Glucose 280 H 74-106 mg/dL Assessment/Plan Patient is a 28-year-old male presented to the hospital with: # thrombocytopenia Multifocal pneumonia: [place] ARDS Acute hypoxic respiratory failure On mechanical ventilator Coag negative staphylococcus bacteremia leucocytosis Acute exacerbation of asthma Elevated Troponin Schizophrenia Autism Cannabinoid Use Morbid obesity BMI 60.5 Pulmonary edema Recommendations: reviewed cultures since admission listed below Culture History: 01/21, Blood culture showed Growth Of Coagulase Negative Staphylococcus 01/30, Urine culture: No growth monitored 01/30, Sputum culture showed Klebsiella pneumoniae 02/04: BAL cx [place] MRSA screen neg 02/11 chest x-ray : Support lines and tubes as described. Patchy diffuse bilateral consolidation similar to prior study. antibiotics history Vancomycin 01/22- Linezolid 01/27- 02/03 Zosyn: 01/31- 02/03 blood cx seems to look contaminations, + 1/2. discontinued Linezolid ( also platelets dropping) CXR shows multifocal infiltrate suggestive of ARDS, he is requiring high FIO2, possibly associated with pulm edema and bacterial pneumonia [place] is pansensitive, Patient is completing Cefepime, we will consider stopping tomorrow. pulmonary is on board, s/p bronchoscopy 02/04: mucous plugging, BAL cx grew Klebsiella lasix prognosis is very poor. critical time 35 minutes spent. Thank you for consult and for giving an opportunity to take care of this patient. Dietary Evaluation Review Comments: Current Jevity 1.2 @60ml/hr TF is meeting pt's need for protein at 60% for energy at 117% Continue monitor nutrition progress of nutrition support to meet 75% of his needs. Advance to a cardiac diet, texture as tolerated when medically feasible. Expected Outcomes/Goals: gradual weight loss Plan discussed with: Other Date of Reassessment: Feb 11, 2024 EBEN BARBOUR MD Feb 12, 2024 16:52
[2024-02-12] MEDS: TPN PER PHARMACY IV NR (21:54)
--- NOTE | 2024-02-12 22:00 | DVHPN2 ---
Progress Note - Dictate Date Seen: Feb 12, 2024 Medical Necessity Reason Pt with a Central, PICC or Fol: Yes The following are medically ne: Reyes Catheter Reason for reyes catheter: Strict I&O Subjective Patient seen and examined at bedside. intubated on mechanical ventilator. Overnight events reviewed. vital signs Vital Sign Date Time Temp Pulse Resp B/P (MAP) Pulse Ox O2 Delivery O2 Flow Rate FiO2 02/12/24 20:47 92 30 119/75 (90) 100 02/12/24 20:15 30 02/12/24 20:02 98.2 98.2 02/12/24 20:00 Mechanical Ventilator+ Total Intake and Output 02/11/24 02/11/24 02/12/24 15:00 23:00 07:00 Intake Total 847.0 ml 792.5 ml 761.25 ml Output Total 1400 ml 1700 ml Balance 847.0 ml -607.5 ml -938.75 ml medications Current Medications Medications Dose Ordered Sig/Reji Route Start Time Stop Time Status Last Admin Dose Admin Ondansetron HCl 4 mg Q4HP PRN IV 01/19/24 20:15 Pantoprazole Sodium 40 mg DAILY IV 01/20/24 10:00 02/12/24 07:43 40 MG Nitroglycerin 0.4 mg Q5MINP PRN SL 01/19/24 20:15 Midazolam HCl 50 ml @ 1 mls/hr Q24H IV 01/19/24 21:30 02/12/24 06:10 3 MLS/HR Aspirin 81 mg DAILY NG 01/20/24 10:00 02/12/24 07:44 81 MG Atorvastatin Calcium 40 mg HS PO 01/20/24 22:00 02/11/24 22:19 40 MG Latanoprost 1 drop QPM EACHEYE 01/20/24 18:00 02/12/24 16:39 1 DROP Patient Own Medication 400 mg MONTHLY IM 01/20/24 11:30 Lisinopril 20 mg DAILY PO 01/20/24 11:30 02/11/24 07:50 20 MG Nitroglycerin 250 ml @ 1.5 mls/hr Q24H IV 01/20/24 20:30 Albuterol 2.5 mg Q4HR NEB 01/20/24 22:00 02/12/24 19:04 2.5 MG Ipratropium [place] 0.5 mg Q4HR NEB 01/20/24 22:00 02/12/24 19:03 0.5 MG Enteral Nutritional Formula 1,000 ml 60ML/HR GT 01/22/24 14:00 02/01/24 20:06 1,000 ML Vancomycin HCl 300 ml @ 200 mls/hr Q8H IV 01/28/24 02:00 Cancel Metoclopramide HCl 10 mg Q8HR IV 01/28/24 14:00 02/12/24 11:50 10 MG Docusate Sodium 100 mg BID GT 01/28/24 22:00 02/12/24 07:43 100 MG Hydralazine HCl 10 mg Q6HP PRN IV 01/30/24 13:15 02/05/24 02:46 10 MG Acetaminophen 650 mg Q4HP PRN PO 01/31/24 07:30 02/12/24 06:17 650 MG Furosemide 40 mg BIDD IV 02/02/24 10:30 02/12/24 16:39 40 MG Amino Acids 0 ml @ 0 mls/hr PER PHARMACY IV 02/03/24 12:15 Cefepime HCl 50 ml @ 12.5 mls/hr Q8HR IV 02/04/24 14:00 02/12/24 11:50 12.5 MLS/HR Diagnostic Test (Pha) 1 strip Q6HR 02/05/24 18:00 02/12/24 16:40 1 STRIP Dextrose 50 ml UD PRN IV 02/05/24 13:15 Insulin Human Regular Q6HR SC 02/05/24 15:15 02/12/24 16:44 12 UNITS Fentanyl Citrate 250 ml @ 2.5 mls/hr Q24H IV 02/07/24 08:15 02/12/24 04:17 17.5 MLS/HR Methylprednisolone Sodium Succinate 40 mg Q8HR IV 02/07/24 22:00 02/12/24 11:50 40 MG Quetiapine Fumarate 100 mg BID PO 02/07/24 22:00 02/12/24 07:44 100 MG Insulin Glargine 30 units BID@1000,2200 SC 02/08/24 22:00 02/12/24 07:36 30 UNITS Lactulose 30 ml Q6HR PO 02/09/24 18:00 02/12/24 16:39 30 ML Dexmedetomidine HCl 400 mcg/ Dextrose 100 ml @ 7.25 mls/hr [id number] IV 02/09/24 18:00 02/12/24 16:39 7.25 MLS/HR Diltiazem HCl 30 mg BID GT 02/10/24 22:00 02/12/24 07:44 30 MG Norepinephrine Bitartrate 250 ml @ 3.75 mls/hr Q24H IV 02/11/24 10:45 Fat Emulsion Intravenous 100 ml/Sodium Chloride 40 meq/ Sodium Phosphate 20 meq/Potassium Chloride 60 meq/ Magnesium Sulfate 16 meq/ Multivitamins 10 ml/Insulin Human Regular 48 units/ Amino Acids/ Dextrose/Purified Water 1,559.48 ml @ 65 mls/hr Q24H IV 02/11/24 22:00 02/12/24 21:59 02/11/24 22:03 65 MLS/HR Fat Emulsion Intravenous 150 ml/Sodium Chloride 30 meq/ Sodium Phosphate 20 meq/Potassium Chloride 40 meq/ Magnesium Sulfate 20 meq/ Multivitamins 10 ml/Insulin Human Regular 50 units/ Amino Acids/ Dextrose/Purified Water 1,698 ml @ 70 mls/hr [id number] IV 02/12/24 22:00 02/13/24 21:59 objective Gen.: Patient lying in bed in medical ICU. Intubated on mechanical ventilator. Head: Normocephalic, atraumatic. Eyes: PERRLA. Ears: Normal external anatomy. Throat: Endotracheal tube and orogastric tube in place. Neck: Supple, trachea midline. Chest: Transmitted breath sounds bilaterally. Decreased air entry bilaterally. No wheezing. Bibasilar crackles. Cardiovascular: Positive S1, positive S2. Regular rate and rhythm. Abdomen: Positive bowel sounds in all 4 quadrants. Soft, nontender, nondistended. : Reyes in place. Normal external genitalia. Rectal: Deferred. Skin: Warm, dry. Intact. Extremities: 2+ radial pulses bilaterally. No lower extremity edema. Neuro: Off sedation laboratory and microbiology Laboratory Tests 02/12/24 03:40 Test 02/12/24 03:40 Range/Units Serum Glucose 280 H 74-106 mg/dL Assessment/Plan Impression: Acute hypoxic respiratory failure On mechanical ventilator Acute exacerbation of asthma Elevated Troponin Schizophrenia Autism Cannabinoid Use Morbid obesity BMI 60.5 Pulmonary edema Events: Vent support On AC mode with RR 26, VT 500, PEEP 8, FiO2 30% Off Versed, Fentanyl. On Precedex drip for agitation. Remains off Rocuronium drip Leukocytosis: Monitor WBC - 23.4 K ABG reviewed. Compensated. CXR demonstrates devices in place; Patchy diffuse bilateral consolidation similar to prior. Continue antibiotics Seroquel 100 mg q.12 hours. Continue bronchodilators IV steroids TPN for nutritional support Diurese to euvolemia - Lasix BID Monitor renal function Monitor electrolytes. Supplement as necessary. Monitor ins and outs. CPAP with PS 20, PEEP of 8 to achieve VT 400-500 mL for pulmonary exercising. Recommend trach/PEG to liberate from vent. Bronchoscopy w/ RML BAL was performed on 02/05/24. Cultures grew Klebsiella pneumoniae. Labs and imaging reviewed. Rest of plan as noted below. Plan: s/p intubation on mechanical ventilator. On AC mode with RR 26, VT 500, PEEP 8, FiO2 30% Titrate FIO2 to keep O2 saturation above 90%. VAP bundle. Daily ABG and CXR while intubated Sedate for ventilator synchrony Pt does not tolerate turns. Derecruitment. Turn carefully. Elevated Troponin - Cardiology recs appreciated. Continue bronchodilators Antibiotics. F/u cultures. Pressors if necessary for hemodynamic support Titrate to keep mean arterial pressure greater than 65 mmHg. Currently off pressors, hemodynamically stable. Diurese to euvolemia Monitor renal function Monitor electrolytes. Supplement as necessary. Monitor ins and outs. Diet and lifestyle modifications for weight reduction Morbid obesity - complicates all care GI prophylaxis. DVT prophylaxis. Prognosis: Poor given patient's multiple co-morbidities. Condition: Critical Rest of plan per hospitalist and other consultants. A total of 35 minutes of critical care time was spent reviewing the patient record, examining the patient, making a diagnostic and therapeutic plan, discussing this plan with the medical personnel, following up on diagnostic studies and following the patient for clinical stability excluding any and all procedures. At least 50% of this time was spent in direct, [id number] contact. Thank you Irma Velasquez NP, for allowing me to participate in this patient's care. Further recommendations will depend on the patient's clinical course. Please do not hesitate to contact me if you have any questions or concerns. This medical document was created using an electronic medical record system with Dragon computerized dictation system. Although these documentations are being carefully reviewed, there may still be some phonetic and typographical changes. The errors are purely typographical, due to imperfection on the software program, and do not reflect any compromise in the patient's medical care. Dietary Evaluation Review Comments: Current Jevity 1.2 @60ml/hr TF is meeting pt's need for protein at 60% for energy at 117% Continue monitor nutrition progress of nutrition support to meet 75% of his needs. Advance to a cardiac diet, texture as tolerated when medically feasible. Expected Outcomes/Goals: gradual weight loss Plan discussed with: Other (SAIGE Cerda) Critical Care Time(min): 35 Date of Reassessment: Feb 11, 2024 VERÓNICA MERCER MD Feb 12, 2024 22:00
[2024-02-13] VITALS (109 sets, daily range): BP systolic 81–149; BP diastolic 34–90; PULSE 74–126; RESP 15–46; TEMP 97.4–100; O2SAT 94–100
[2024-02-13 03:37] LABS: Eosinophils # (auto) 0 10 ^3/uL (0-0.8); Eosinophils % (auto) 0.1 % (0.0-7.0); Hemoglobin 12.4 g/dL (13.5-17.5); Monocytes # (auto) 0.6 10 ^3/uL (0-1.3)
[2024-02-13 03:40] LABS: Basophils # (auto) 0.1 10 ^3/uL (0-0.2); Basophils % (auto) 0.6 % (0.0-2.0); Hematocrit 40.5 % (41.0-53.0); Lymphocytes # (auto) 0.4 10 ^3/uL (0.4-5.4); Lymphocytes % (auto) 1.9 % (10.0-50.0); Mean Corpuscular Hemoglobin 22.9 pg (28.0-32.0); Mean Corpuscular Hgb Conc. 30.7 g/dL (32.0-36.0); Mean Corpuscular Volume 74.6 fL (80.0-100.0); Monocytes % (auto) 2.7 % (0.0-12.0); Neutrophils # (auto) 21.8 10 ^3/uL (1.6-8.6); Neutrophils % (auto) 94.7 % (37.0-80.0); Platelet Count (auto) 207 10^3/uL (140-450); Red Blood Cells 5.43 10^6/uL (4.5-5.90); Red Cell Distribution Width 18.5 % (11.8-14.3)
[2024-02-13 04:01] LABS: Albumin 3.9 g/dL (3.2-4.8); Anion Gap 8 (5-15); Calcium 9.7 mg/dL (8.7-10.4); Carbon Dioxide 26 mmol/L (20-31); Chloride 103 mmol/L (98-107); Magnesium 2.2 mg/dL (1.6-2.6); Potassium 4.1 mmol/L (3.5-5.1); Sodium 137 mmol/L (136-145); Total Protein 6.6 g/dL (5.7-8.2)
[2024-02-13 04:11] LABS: Alanine Aminotransferase 200 U/L (7-40); Alkaline Phosphatase 141 U/L (46-116); Aspartate Aminotransferase 50 U/L (13-40); Bilirubin, Total 2.2 mg/dL (0.2-1.0); Blood Urea Nitrogen 33 mg/dL (9-23); Glucose 356 mg/dL (74-106)
[2024-02-13 05:16] LABS: Hypochromia Slight
[2024-02-13 05:17] LABS: Platelet Estimate Adequate
--- NOTE | 2024-02-13 05:47 | DVH ---
CHEST RADIOGRAPH Indication: intubated Technique: Single frontal view of the chest was obtained COMPARISON: XY CHEST PORTABLE on DOS: 02/12/24, XY CHEST PORTABLE on DOS: 02/11/24, XY CHEST PORTABLE on DOS: 02/10/24, XY CHEST PORTABLE on DOS: 02/08/24, XY CHEST PORTABLE on DOS: 02/06/24, XY CHEST HERMAN BLE on DOS: 02/10/24 FINDINGS: Lines and Tubes: Endotracheal tube, enteric catheter and left central venous catheter in satisfactory position. Lungs: Multifocal airspace disease. Pleura: No effusion. No pneumothorax. Cardiomediastinal contours: Cardiomegaly Bones: Unremarkable IMPRESSION: Lines and tubes in satisfactory position. No significant interval change.
[2024-02-13 06:12] LABS: Triglycerides 195 mg/dL (< 150)
[2024-02-13 06:24] LABS: Base Excess -1.4 mmol/L (-2.0-3.0)
--- NOTE | 2024-02-13 07:54 | DVHPN2 ---
Progress Note - Dictate Date Seen: Feb 13, 2024 Medical Necessity Reason Pt with a Central, PICC or Fol: Yes The following are medically ne: Reyes Catheter Reason for reyes catheter: Strict I&O vital signs Vital Sign Date Time Temp Pulse Resp B/P (MAP) Pulse Ox O2 Delivery O2 Flow Rate FiO2 02/13/24 07:32 110 02/13/24 07:31 129/78 02/13/24 07:02 99.1 45 96 99.1 02/13/24 06:57 30 02/13/24 06:00 Mechanical Ventilator+ Total Intake and Output 02/12/24 02/12/24 02/13/24 15:00 23:00 07:00 Intake Total 732.750 ml 679.75 ml 597.5 ml Output Total 1300 ml 2000 ml Balance 732.750 ml -620.25 ml -1402.5 ml medications Current Medications Medications Dose Ordered Sig/Reji Route Start Time Stop Time Status Last Admin Dose Admin Ondansetron HCl 4 mg Q4HP PRN IV 01/19/24 20:15 Pantoprazole Sodium 40 mg DAILY IV 01/20/24 10:00 02/13/24 07:31 40 MG Nitroglycerin 0.4 mg Q5MINP PRN SL 01/19/24 20:15 Midazolam HCl 50 ml @ 1 mls/hr Q24H IV 01/19/24 21:30 02/12/24 06:10 3 MLS/HR Aspirin 81 mg DAILY NG 01/20/24 10:00 02/13/24 07:32 81 MG Atorvastatin Calcium 40 mg HS PO 01/20/24 22:00 02/12/24 21:29 40 MG Latanoprost 1 drop QPM EACHEYE 01/20/24 18:00 02/12/24 16:39 1 DROP Patient Own Medication 400 mg MONTHLY IM 01/20/24 11:30 Lisinopril 20 mg DAILY PO 01/20/24 11:30 02/13/24 07:31 20 MG Nitroglycerin 250 ml @ 1.5 mls/hr Q24H IV 01/20/24 20:30 Albuterol 2.5 mg Q4HR NEB 01/20/24 22:00 02/13/24 05:38 2.5 MG Ipratropium [place] 0.5 mg Q4HR NEB 01/20/24 22:00 02/13/24 05:37 0.5 MG Enteral Nutritional Formula 1,000 ml 60ML/HR GT 01/22/24 14:00 02/01/24 20:06 1,000 ML Vancomycin HCl 300 ml @ 200 mls/hr Q8H IV 01/28/24 02:00 Cancel Metoclopramide HCl 10 mg Q8HR IV 01/28/24 14:00 02/13/24 05:22 10 MG Docusate Sodium 100 mg BID GT 01/28/24 22:00 02/12/24 21:26 100 MG Hydralazine HCl 10 mg Q6HP PRN IV 01/30/24 13:15 02/05/24 02:46 10 MG Acetaminophen 650 mg Q4HP PRN PO 01/31/24 07:30 02/13/24 05:23 650 MG Furosemide 40 mg BIDD IV 02/02/24 10:30 02/13/24 05:22 40 MG Amino Acids 0 ml @ 0 mls/hr PER PHARMACY IV 02/03/24 12:15 Cefepime HCl 50 ml @ 12.5 mls/hr Q8HR IV 02/04/24 14:00 02/13/24 05:20 12.5 MLS/HR Diagnostic Test (Pha) 1 strip Q6HR 02/05/24 18:00 02/13/24 05:40 1 STRIP Dextrose 50 ml UD PRN IV 02/05/24 13:15 Insulin Human Regular Q6HR SC 02/05/24 15:15 02/13/24 05:42 12 UNITS Fentanyl Citrate 250 ml @ 2.5 mls/hr Q24H IV 02/07/24 08:15 02/12/24 04:17 17.5 MLS/HR Methylprednisolone Sodium Succinate 40 mg Q8HR IV 02/07/24 22:00 02/13/24 05:22 40 MG Quetiapine Fumarate 100 mg BID PO 02/07/24 22:00 02/13/24 07:31 100 MG Insulin Glargine 30 units BID@1000,2200 SC 02/08/24 22:00 02/12/24 22:03 30 UNITS Lactulose 30 ml Q6HR PO 02/09/24 18:00 02/13/24 05:21 30 ML Dexmedetomidine HCl 400 mcg/ Dextrose 100 ml @ 7.25 mls/hr [id number] IV 02/09/24 18:00 02/12/24 16:39 7.25 MLS/HR Diltiazem HCl 30 mg BID GT 02/10/24 22:00 02/13/24 07:32 30 MG Norepinephrine Bitartrate 250 ml @ 3.75 mls/hr Q24H IV 02/11/24 10:45 Fat Emulsion Intravenous 150 ml/Sodium Chloride 30 meq/ Sodium Phosphate 20 meq/Potassium Chloride 40 meq/ Magnesium Sulfate 20 meq/ Multivitamins 10 ml/Insulin Human Regular 50 units/ Amino Acids/ Dextrose/Purified Water 1,698 ml @ 70 mls/hr [id number] IV 02/12/24 22:00 02/13/24 21:59 02/12/24 21:54 70 MLS/HR laboratory and microbiology Laboratory Tests 02/13/24 03:15 Test 02/13/24 03:15 Range/Units Serum Glucose 356 H 74-106 mg/dL Assessment/Plan Patient is 28 year old morbidly obese male who presented to ED with shortness of breath. He has been intubated for respiratory failure and in on vent. support. Information was obtained by reviewing the chart and communicating with staff. Cardiology is involved for cardiac aspects of care. There is no report of chest pain prior to presentation. Reportedly, patient has been intubated for usp previously for Asthma in other institution. Intubated and on vent support. Morbidly obese. Does have right sided subclavian access. No JVD. Mucosa is pink and wet. No goiter. Scattered rhonchi is heard. Cardiac: RR, no thrill, no gallop. Abdomen is soft, obese and distended. BS is +. Ext reveal 2+ edema bilaterally. DP is 2+ bilateral PMH reportedly includes Morbid obesity, Asthma (with previous intubations), Autism, Schizophrenia and ANNETTE. Smokes Marijuana and drinks alcohol WBC: 11.6 to 11.2 to 14.2 to 12.2 to 13.3 to 16.4 to 17.5 to 15.3 to 13.8 to 15.7 to 13.8 - 22.2 to 22.3 to 16.3 - 20.1 - 20.7 - 23.8 - 23.4 - 23.0 D-dimer: 0.43 (wnl) Creat: 0.73 - 0.70 - 0.67 - 0.76 - 0.71 - 0.70 - 0.69 - 0.59 - 0.60 - 0.52 - 0.50 - 0.47 - 0.47 - 0.62 - 0.42 - 0.39 - 0.51 - 0.52 - 0.46 - 0.38 - 0.41 - 0.43 - 0.41 - 0.44 - 0.42 - 0.38 - 0.30 K: 4.1 - 4.3 - 4.1 - 4.2 - 4.0 - 4.1 - 4.1 - 3.9 - 4.0 - 3.8 - 4.3 - 4.7 - 4.4 - 4.4 - 4.3 - 4.3 - 4.1 - 3.6 - 4.9 - 4.6 - 4.4 - 3.9 - 4.0 - 4.3 - 4.1 BNP: 561.97 - 173.31 Trop (high sensitive): 61 - 62 - 131 - 132 - 91 - 82 TSH: 0.48 Urine toxicology was positive for Cannabinoids and Benzodiazpin Chest xry revealed: FINDINGS: Lines and Tubes: None Lungs: Obscuration of the left hemidiaphragm Diffuse interstitial prominence. No pneumothorax. Cardiomediastinal contours: Moderate cardiomegaly Bones: No acute osseous abnormality. IMPRESSION: Moderate cardiomegaly with findings suggestive of congestive heart failure. Possible left-sided pleural effusion. Repeat chest xry revealed: Endotracheal tube projects terminating 1.8 cm superior to the zbigniew. Enteric tube is projecting below the GE junction without visualization of the port or tip. Low lung volumes with bronchovascular crowding. Possible small left-sided pleural effusion and/or atelectasis. No pneumothorax. Repeat chest xry revealed: Cardiomediastinal silhouette is enlarged. There is increased pulmonary vascular congestion, similar prior examination. Obscuration of the left hemidiaphragm may be on the basis of technique versus small pleural effusion. No discrete pneumothorax. Endotracheal tube and enteric tube are redemonstrated. Left IJ catheter tip is likely at the region of the brachiocephalic vein. Repeat chest xry revealed: FINDINGS: Cardiomediastinal silhouette is enlarged. There is increased pulmonary vascular congestion, similar prior examination. Obscuration of the left hemidiaphragm may be on the basis of technique versus small pleural effusion. No discrete pneumothorax. Endotracheal tube and enteric tube are redemonstrated. Left IJ catheter tip is likely at the region of the brachiocephalic vein. IMPRESSION: NO INTERVAL CHANGE. Repeat chest xry revealed: IMPRESSION: Improving pulmonary edema compared to prior exam. Repeat chest xry revealed: IMPRESSION: stable pulmonary edema compared to prior exam. Repeat chest xry revealed: IMPRESSION: Lines and tubes in satisfactory position. No significant interval change. Repeat chest xry revealed: IMPRESSION: Lines and tubes in satisfactory position. No significant interval change. Repeat chest xry revealed: IMPRESSION: Lines and tubes in satisfactory position. No significant interval change. Repeat chest xry: IMPRESSION: 1. Stable position of the support lines and tubes. 2. No significant change in diffuse bilateral airspace opacities. Repeat chest xry revealed: IMPRESSION: 1. Endotracheal tube terminates 6.4 symbol the zbigniew. 2. Bilateral airspace disease unchanged. Repeat chest xry revealed: IMPRESSION: 1. Endotracheal tube 4.1 cm above the zbigniew. 2. OG tube not visualized AND may BE IN THE RIGHT MAINSTEM BRONCHUS RECOMMEND REMOVAL AND REPOSITIONING WITH REPEAT CHEST X-RAY. Repeat chest xry revealed: FINDINGS: Endotracheal tube in place 4.4 cm above the zbigniew. Left internal jugular catheter in place in the superior vena cava. Cardiomegaly is noted with pulmonary vascular congestion findings may represent congestive failure other possibility such as pneumonia are in the differential. IMPRESSION: 1. Cardiomegaly with findings of pulmonary vascular congestion. Findings may represent congestive failure or pneumonia. Repeat chest xry revealed: Lines and Tubes: The endotracheal tube terminates 3.1 cm above the zbigniew. Left central venous catheter terminates in the superior vena cava. Enteric tube is visualized to the mid chest but not visualized below the left hemidiaphragm. Lungs: Bilateral airspace disease. Pleura: No effusion. No pneumothorax. Cardiomediastinal contours: Stable cardiomegaly. Bones: No acute osseous abnormality. IMPRESSION: 1. Enteric tube not visualized below the left hemidiaphragm. 2. Bilateral airspace disease similar to prior exam. Repeat chest xry revealed: Limited evaluation given patient positioning. The heart appears markedly enlarged. There are low lung volumes with moderate alveolar airspace opacities suggesting pulmonary edema. No discrete pneumothorax. Endotracheal tube appear stable. Enteric tube is not well visualized. Repeat chest xry revealed: IMPRESSION: 1. Stable appearance of the support lines and tubes. 2. Pulmonary opacities, unchanged. Repeat chest xry revealed: Evaluation limited by patient body habitus. Lines and Tubes: The endotracheal tube terminates 5.7 cm above the zbigniew. Left central venous catheter is unchanged in position. Enteric tube courses below the left hemidiaphragm and outside the field of view. Lungs: Bilateral airspace disease similar to prior study. Pleura: Possible bilateral pleural effusions. No pneumothorax. Cardiomediastinal contours: Stable. Bones: No acute osseous abnormality. IMPRESSION: 1. No significant interval change. Repeat chest xry revealed: IMPRESSION: Right lower lobe pneumonia. Repeat chest xry revealed: IMPRESSION: 1. Right middle lobe consolidation which may represent pneumonia. 2. Pulmonary congestion. 3. Obscuration of the left hemidiaphragm for which left pleural effusion is not excluded. 4. Stable cardiomegaly. Repeat chest xry revealed: Low lung volumes limits evaluation. Bilateral airspace opacities are unchanged. Likely small left pleural effusion. No pneumothorax visualized. Stable satisfactory positioning of the endotracheal tube and enteric tube. Stable positioning of the left internal jugular central venous catheter, with the tip at the level of the left brachiocephalic vein. IMPRESSION: No significant interval change as detailed above. Repeat chest xray revealed: IMPRESSION: Lines and tubes in satisfactory position. No significant interval change. Repeat chest xry revealed: IMPRESSION: Heart is enlarged. Patchy airspace opacity in the right lower lung appear similar. Moderate pulmonary vascular congestion. Support lines and tubes appear unchanged. No significant interval change. Repeat chest xry revealed: IMPRESSION: 1. Support lines and tubes as described. 2. Patchy diffuse bilateral consolidation similar to prior study. Repeat chest xry revealed: IMPRESSION: Lines and tubes in satisfactory position. No significant interval change. KUB revealed: Impression: 1. Nonobstructive bowel gas pattern. 2. Enteric tube overlying the plane of the stomach. 3. No visualized renal calculi. Venous duplex of lower ext revealed: Impression: 1. No right or left femoropopliteal venous thrombosis. 2. Left common femoral vein and proximal superficial femoral vein are not visible and therefore thrombus can not be excluded in those areas. EKG revealed: Sinus tachycardia with non-specific STT changes Tele reveals Sinus rhythm Echocardiogram revealed: Technically limited study secondary to poor acoustic windows. Left ventricle: Left ventricle was normal-sized with normal systolic function. LVEF was 60-65%. There was no gross wall motion abnormality observed. Right ventricle was not well visualized but it was dilated. Left atrium was normal-sized. Right atrium was not well visualized. Aortic valve was trileaflet and normal. There was no aortic insufficiency/stenosis. There was trivial mitral and tricuspid regurgitation. There was mild pulmonary valve insufficiency. As there was no good tricuspid regurgitation jet, right ventricular systolic pressure could not be estimated. There was no pericardial effusion. Patient is 28 year old male with history of morbid obesity who presented with respiratory failure. Does have history of Asthma and reportedly has been intubated for it before. Trop has been mildly elevated. ACS is less likely and increase in troponin most likely represents demand physiology. Still, component of type 1 physiology cannot be completely ruled out. Echo revealed dilated RV. As there was no good TR jet, RVSP could not be estimated. Pulmonary Hypertension cannot be ruled out. Pulmonary on board. On sedation. ID on board Acute respiratory failure Asthma Asthma exacerbation Morbid obesity Abnormal trop Questionable heart failure, acute Pneumonia s/p bronchoscopy Cardiac suggestion for management: Manage in ICU IV diuresis Follow up electrolytes and kidney function test and correct abnormalities. Keep potassium above 4 and magnesium above 2 Lovenox ASA Follow up vital signs and correct hyper/hypotension. If needed add pressure support to keep MAP above 65 mmHg Pulmonary follow up / ID follow up Further evaluation and management depends on the above and clinical course A total of 75 minutes was spent reviewing the patient record, examining the patient, making a diagnostic and therapeutic plan, discussing this plan with medical personnel, following up on diagnostic studies and following the patient for clinical stability excluding any and all procedures. At least 50% of this time was spent in direct, [id number] contact. Thank you for allowing me to participate in this patient's care. Further recommendations will depend on patient's clinical course. Please do not hesitate to contact me if you have any questions or concerns. This medical document was created using electronic medical record system with [employer] dictation system. Although this document has been carefully reviewed, there may still be some phonetic and typographical errors. These areas are purely typographical due to the imperfection of the software programs, and do not reflect any compromise in the patient's medical care. Dietary Evaluation Review Comments: Current Jevity 1.2 @60ml/hr TF is meeting pt's need for protein at 60% for energy at 117% Continue monitor nutrition progress of nutrition support to meet 75% of his needs. Advance to a cardiac diet, texture as tolerated when medically feasible. Expected Outcomes/Goals: gradual weight loss Plan discussed with: Other (nurse) Date of Reassessment: Feb 11, 2024 PARRIS MCKINNON MD Feb 13, 2024 07:53
[2024-02-13] MEDS ORDERED: DOCUSATE ORAL LIQUID 100 MG/10 ML UD GT PRN (14:30)
[2024-02-13] MEDS ORDERED: LACTULOSE 20Gm/30ML SOLN PO PRN (14:30)
--- NOTE | 2024-02-13 19:45 | DVHPN2 ---
Progress Note - Dictate Date Seen: Feb 13, 2024 Medical Necessity Reason Pt with a Central, PICC or Fol: Yes The following are medically ne: Reyes Catheter Reason for reyes catheter: Strict I&O Subjective Patient remains intubated. No new acute complaints noted at this time. WBC trending up vital signs Vital Sign Date Time Temp Pulse Resp B/P (MAP) Pulse Ox O2 Delivery O2 Flow Rate FiO2 02/13/24 18:47 96 31 123/70 (87) 100 02/13/24 17:42 30 02/13/24 17:41 Mechanical Ventilator+ 02/13/24 16:32 99.6 99.6 Total Intake and Output 02/12/24 02/12/24 02/13/24 15:00 23:00 07:00 Intake Total 732.750 ml 679.75 ml 605.0 ml Output Total 1300 ml 2000 ml Balance 732.750 ml -620.25 ml -1395.0 ml medications Current Medications Medications Dose Ordered Sig/Reji Route Start Time Stop Time Status Last Admin Dose Admin Ondansetron HCl 4 mg Q4HP PRN IV 01/19/24 20:15 Pantoprazole Sodium 40 mg DAILY IV 01/20/24 10:00 02/13/24 07:31 40 MG Nitroglycerin 0.4 mg Q5MINP PRN SL 01/19/24 20:15 Midazolam HCl 50 ml @ 1 mls/hr Q24H IV 01/19/24 21:30 02/12/24 06:10 3 MLS/HR Aspirin 81 mg DAILY NG 01/20/24 10:00 02/13/24 07:32 81 MG Atorvastatin Calcium 40 mg HS PO 01/20/24 22:00 02/12/24 21:29 40 MG Latanoprost 1 drop QPM EACHEYE 01/20/24 18:00 02/13/24 17:25 1 DROP Patient Own Medication 400 mg MONTHLY IM 01/20/24 11:30 Lisinopril 20 mg DAILY PO 01/20/24 11:30 02/13/24 07:31 20 MG Albuterol 2.5 mg Q4HR NEB 01/20/24 22:00 02/13/24 18:06 2.5 MG Ipratropium [place] 0.5 mg Q4HR NEB 01/20/24 22:00 02/13/24 18:06 0.5 MG Enteral Nutritional Formula 1,000 ml 60ML/HR GT 01/22/24 14:00 02/01/24 20:06 1,000 ML Vancomycin HCl 300 ml @ 200 mls/hr Q8H IV 01/28/24 02:00 Cancel Metoclopramide HCl 10 mg Q8HR IV 01/28/24 14:00 02/13/24 12:49 10 MG Hydralazine HCl 10 mg Q6HP PRN IV 01/30/24 13:15 02/05/24 02:46 10 MG Acetaminophen 650 mg Q4HP PRN PO 01/31/24 07:30 02/13/24 05:23 650 MG Furosemide 40 mg BIDD IV 02/02/24 10:30 02/13/24 17:25 40 MG Amino Acids 0 ml @ 0 mls/hr PER PHARMACY IV 02/03/24 12:15 Cefepime HCl 50 ml @ 12.5 mls/hr Q8HR IV 02/04/24 14:00 02/13/24 12:49 12.5 MLS/HR Diagnostic Test (Pha) 1 strip Q6HR 02/05/24 18:00 02/13/24 16:37 1 STRIP Dextrose 50 ml UD PRN IV 02/05/24 13:15 Insulin Human Regular Q6HR SC 02/05/24 15:15 02/13/24 17:06 8 UNITS Fentanyl Citrate 250 ml @ 2.5 mls/hr Q24H IV 02/07/24 08:15 02/12/24 04:17 17.5 MLS/HR Quetiapine Fumarate 100 mg BID PO 02/07/24 22:00 02/13/24 07:31 100 MG Insulin Glargine 30 units BID@1000,2200 SC 02/08/24 22:00 02/13/24 09:50 30 UNITS Dexmedetomidine HCl 400 mcg/ Dextrose 100 ml @ 7.25 mls/hr [id number] IV 02/09/24 18:00 02/12/24 16:39 7.25 MLS/HR Diltiazem HCl 30 mg BID GT 02/10/24 22:00 02/13/24 07:32 30 MG Norepinephrine Bitartrate 250 ml @ 3.75 mls/hr Q24H IV 02/11/24 10:45 Fat Emulsion Intravenous 150 ml/Sodium Chloride 30 meq/ Sodium Phosphate 20 meq/Potassium Chloride 40 meq/ Magnesium Sulfate 20 meq/ Multivitamins 10 ml/Insulin Human Regular 50 units/ Amino Acids/ Dextrose/Purified Water 1,698 ml @ 70 mls/hr [id number] IV 02/12/24 22:00 02/13/24 21:59 02/12/24 21:54 70 MLS/HR Methylprednisolone Sodium Succinate 40 mg BID IV 02/13/24 22:00 Fat Emulsion Intravenous 150 ml/Sodium Chloride 40 meq/ Sodium Phosphate 25 meq/Potassium Chloride 50 meq/ Magnesium Sulfate 20 meq/ Multivitamins 10 ml/Insulin Human Regular 50 units/ Amino Acids/ Dextrose/Purified Water 1,706.75 ml @ 71 mls/hr Q24H3M IV 02/13/24 22:00 02/14/24 21:59 Docusate Sodium 100 mg BID PRN GT 02/13/24 14:30 Lactulose 30 ml Q6HR PRN PO 02/13/24 14:30 objective Gen.: Patient lying in bed in medical ICU. Sedated, intubated on mechanical ventilator. Head: Normocephalic, atraumatic. Eyes: PERRLA. Ears: Normal external anatomy. Throat: Endotracheal tube and orogastric tube in place. Neck: Supple, trachea midline. Chest: Decreased air entry bilaterally. No wheezing. Bibasilar crackles. Cardiovascular: Positive S1, positive S2. Regular rate and rhythm. Abdomen: . Soft, nontender, nondistended. : Reyes in place. Normal external genitalia. Rectal: Deferred. Skin: Warm, dry. Intact. Extremities: No lower extremity edema. Neuro: Sedated. laboratory and microbiology Laboratory Tests 02/13/24 03:15 Test 02/13/24 03:15 Range/Units Serum Glucose 356 H 74-106 mg/dL Assessment/Plan Patient is a 28-year-old male presented to the hospital with: # thrombocytopenia Multifocal pneumonia: [place] ARDS Acute hypoxic respiratory failure On mechanical ventilator Coag negative staphylococcus bacteremia leucocytosis Acute exacerbation of asthma Elevated Troponin Schizophrenia Autism Cannabinoid Use Morbid obesity BMI 60.5 Pulmonary edema Recommendations: reviewed cultures since admission listed below Culture History: 01/21, Blood culture showed Growth Of Coagulase Negative Staphylococcus 01/30, Urine culture: No growth monitored 01/30, Sputum culture showed Klebsiella pneumoniae 02/04: BAL cx [place] MRSA screen neg 02/11 chest x-ray : Lines and tubes in satisfactory position. No significant interval change. antibiotics history Vancomycin 01/22- Linezolid 01/27- 02/03 Zosyn: 01/31- 02/03 blood cx seems to look contaminations, + 1/2. discontinued Linezolid ( also platelets dropping) CXR shows multifocal infiltrate suggestive of ARDS, he is requiring high FIO2, possibly associated with pulm edema and bacterial pneumonia [place] is pansensitive, Patient is completing Cefepime, we will consider stopping. pulmonary is on board, s/p bronchoscopy 02/04: mucous plugging, BAL cx grew Klebsiella lasix prognosis is very poor. critical time 35 minutes spent. Thank you for consult and for giving an opportunity to take care of this patient. Dietary Evaluation Review Comments: Current Jevity 1.2 @60ml/hr TF is meeting pt's need for protein at 60% for energy at 117% Continue monitor nutrition progress of nutrition support to meet 75% of his needs. Advance to a cardiac diet, texture as tolerated when medically feasible. Expected Outcomes/Goals: gradual weight loss Date of Reassessment: Feb 11, 2024 EBEN BARBOUR MD Feb 13, 2024 19:45
--- NOTE | 2024-02-13 21:30 | DVHPN2 ---
Progress Note Date Seen: Feb 13, 2024 Medical Necessity Reason Pt with a Central, PICC or Fol: Yes The following are medically ne: Reyes Catheter Reason for reyes catheter: Strict I&O Subjective Review of Systems: Not Done (Unable to obtain since patient is intubated and sedated) Objective vital signs Vital Sign Date Time Temp Pulse Resp B/P (MAP) Pulse Ox O2 Delivery O2 Flow Rate FiO2 02/13/24 19:53 97 33 139/80 (99) 100 30 02/13/24 17:41 Mechanical Ventilator+ 02/13/24 16:32 99.6 99.6 Total Intake and Output 02/12/24 02/12/24 02/13/24 15:00 23:00 07:00 Intake Total 732.750 ml 679.75 ml 605.0 ml Output Total 1300 ml 2000 ml Balance 732.750 ml -620.25 ml -1395.0 ml medications Current Medications Medications Dose Ordered Sig/Reji Route Start Time Stop Time Status Last Admin Dose Admin Ondansetron HCl 4 mg Q4HP PRN IV 01/19/24 20:15 Pantoprazole Sodium 40 mg DAILY IV 01/20/24 10:00 02/13/24 07:31 40 MG Nitroglycerin 0.4 mg Q5MINP PRN SL 01/19/24 20:15 Midazolam HCl 50 ml @ 1 mls/hr Q24H IV 01/19/24 21:30 02/12/24 06:10 3 MLS/HR Aspirin 81 mg DAILY NG 01/20/24 10:00 02/13/24 07:32 81 MG Atorvastatin Calcium 40 mg HS PO 01/20/24 22:00 02/12/24 21:29 40 MG Latanoprost 1 drop QPM EACHEYE 01/20/24 18:00 02/13/24 17:25 1 DROP Patient Own Medication 400 mg MONTHLY IM 01/20/24 11:30 Lisinopril 20 mg DAILY PO 01/20/24 11:30 02/13/24 07:31 20 MG Albuterol 2.5 mg Q4HR NEB 01/20/24 22:00 02/13/24 18:06 2.5 MG Ipratropium [place] 0.5 mg Q4HR NEB 01/20/24 22:00 02/13/24 18:06 0.5 MG Enteral Nutritional Formula 1,000 ml 60ML/HR GT 01/22/24 14:00 02/01/24 20:06 1,000 ML Vancomycin HCl 300 ml @ 200 mls/hr Q8H IV 01/28/24 02:00 Cancel Metoclopramide HCl 10 mg Q8HR IV 01/28/24 14:00 02/13/24 12:49 10 MG Hydralazine HCl 10 mg Q6HP PRN IV 01/30/24 13:15 02/05/24 02:46 10 MG Acetaminophen 650 mg Q4HP PRN PO 01/31/24 07:30 02/13/24 05:23 650 MG Furosemide 40 mg BIDD IV 02/02/24 10:30 02/13/24 17:25 40 MG Amino Acids 0 ml @ 0 mls/hr PER PHARMACY IV 02/03/24 12:15 Cefepime HCl 50 ml @ 12.5 mls/hr Q8HR IV 02/04/24 14:00 02/13/24 12:49 12.5 MLS/HR Diagnostic Test (Pha) 1 strip Q6HR 02/05/24 18:00 02/13/24 16:37 1 STRIP Dextrose 50 ml UD PRN IV 02/05/24 13:15 Insulin Human Regular Q6HR SC 02/05/24 15:15 02/13/24 17:06 8 UNITS Fentanyl Citrate 250 ml @ 2.5 mls/hr Q24H IV 02/07/24 08:15 02/12/24 04:17 17.5 MLS/HR Quetiapine Fumarate 100 mg BID PO 02/07/24 22:00 02/13/24 07:31 100 MG Insulin Glargine 30 units BID@1000,2200 SC 02/08/24 22:00 02/13/24 09:50 30 UNITS Dexmedetomidine HCl 400 mcg/ Dextrose 100 ml @ 7.25 mls/hr [id number] IV 02/09/24 18:00 02/12/24 16:39 7.25 MLS/HR Diltiazem HCl 30 mg BID GT 02/10/24 22:00 02/13/24 07:32 30 MG Norepinephrine Bitartrate 250 ml @ 3.75 mls/hr Q24H IV 02/11/24 10:45 Fat Emulsion Intravenous 150 ml/Sodium Chloride 30 meq/ Sodium Phosphate 20 meq/Potassium Chloride 40 meq/ Magnesium Sulfate 20 meq/ Multivitamins 10 ml/Insulin Human Regular 50 units/ Amino Acids/ Dextrose/Purified Water 1,698 ml @ 70 mls/hr [id number] IV 02/12/24 22:00 02/13/24 21:59 02/12/24 21:54 70 MLS/HR Methylprednisolone Sodium Succinate 40 mg BID IV 02/13/24 22:00 Fat Emulsion Intravenous 150 ml/Sodium Chloride 40 meq/ Sodium Phosphate 25 meq/Potassium Chloride 50 meq/ Magnesium Sulfate 20 meq/ Multivitamins 10 ml/Insulin Human Regular 50 units/ Amino Acids/ Dextrose/Purified Water 1,706.75 ml @ 71 mls/hr Q24H3M IV 02/13/24 22:00 02/14/24 21:59 Docusate Sodium 100 mg BID PRN GT 02/13/24 14:30 Lactulose 30 ml Q6HR PRN PO 02/13/24 14:30 Examination: GENERAL:Normal, LUNGS:Abnormal (Diminished on ventilator), CVS:Normal, ABDOMEN:Normal, SKIN:Normal, NEURO:Normal laboratory and microbiology Laboratory Tests 02/13/24 03:15 Test 02/13/24 03:15 Range/Units Serum Glucose 356 H 74-106 mg/dL Microbiology Date/Time Source Procedure Growth Status 02/05/24 12:40 Sputum Endotracheal Wash Gram Stain - Final Complete 02/05/24 12:40 Respiratory Culture - Final Klebsiella pneumoniae Complete 01/31/24 14:11 Blood Blood Culture - Final Staph hominis subsp homins Complete 01/31/24 10:00 Urine - Reyes [place] Urine Culture - Final Complete 01/21/24 18:24 Nose MRSA Screen - Final Complete Labs and/or images reviewed: Labs reviewed by me, Image(s) reviewed by me Problem List/Assessment/Plan Problem List/Assessment/Plan 1. Asthma with acute exacerbation Pulmonary consult, monitoring 2. Acute hypoxic respiratory failure requiring intubation Pulmonary Consult 3. Schizophrenia Monitoring 4. Autism Medication, monitoring 5. Elevated Troponin Cardiology Consult, monitoring 6. Cannabis Use Education Assessment/Plan Subjective Patient is currently able to follow commands. Objective Patient remains on sedation with Precedex, Versed, and fentanyl. Patient is on CPAP and currently doing well. Patient is slightly tachypneic. Patient was admitted in January 19, 2024 for acute asthma exacerbation, pneumonia, sepsis, and possible CHF. Patient was seen by cardiology as well as infectious disease and pulmonary. Patient had bronchoscopy by Dr. Dow on 02/04 and cultures were positive for Klebsiella pneumoniae, patient was placed on cefepime per Infectious Disease. Patient has underlying schizophrenia. Patient was accepted to [facility]. 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 We will call again tomorrow morning. Patient was on CPAP for 8 hours today and was placed back on assist-control. Currently patient is on 30% FiO2 with a PEEP of eight Plan Patient to continue CPAP per pulmonary. Patient has been on the ventilator for 24 days. Discharge to LTAC in the morning Plan discussed with: Patient My Orders My Orders Orders - ANAIS REAL Procedure Category Date Status Time Docusate Sodium PHA 02/13/24 In Process Liquid (Colace Liquid) 14:30 Lactulose Oral PHA 02/13/24 In Process 14:30 Cpap Trial For Am ORDERS 02/14/24 Transmitted 08:00 Complete Blood Count LAB 02/14/24 Verified 04:00 Chest Portable XY 02/14/24 Logged 04:00 Imaging Transfer ORDERS 02/13/24 Transmitted Request 16:50 Discharge DISCHARGE 02/13/24 Transmitted 21:23 Dietary Evaluation Review Comments: Current Jevity 1.2 @60ml/hr TF is meeting pt's need for protein at 60% for energy at 117% Continue monitor nutrition progress of nutrition support to meet 75% of his needs. Advance to a cardiac diet, texture as tolerated when medically feasible. Expected Outcomes/Goals: gradual weight loss Sepsis reassessment post fluid Date of Reassessment: Feb 11, 2024 Date of Service: Feb 13, 2024 Billing Provider: LAKE VILLAGRAN MD Common Visit Codes: [id number] INP/OBS CARE (MOD) ANAIS REAL Feb 13, 2024 21:30
[2024-02-13] MEDS: methylPREDNISolone SOD SUCC 40 MG/ML VL IV SCH (21:55)
[2024-02-13] MEDS: TPN PER PHARMACY IV NR (22:08)
--- NOTE | 2024-02-13 23:32 | DVHPN2 ---
Progress Note - Dictate Date Seen: Feb 13, 2024 Medical Necessity Reason Pt with a Central, PICC or Fol: Yes The following are medically ne: Reyes Catheter Reason for reyes catheter: Strict I&O Subjective Patient seen and examined at bedside. intubated on mechanical ventilator. Overnight events reviewed. vital signs Vital Sign Date Time Temp Pulse Resp B/P (MAP) Pulse Ox O2 Delivery O2 Flow Rate FiO2 02/13/24 22:12 101 27 132/81 (98) 100 30 02/13/24 22:00 Mechanical Ventilator+ 02/13/24 16:32 99.6 99.6 Total Intake and Output 02/12/24 02/12/24 02/13/24 15:00 23:00 07:00 Intake Total 732.750 ml 679.75 ml 605.0 ml Output Total 1300 ml 2000 ml Balance 732.750 ml -620.25 ml -1395.0 ml medications Current Medications Medications Dose Ordered Sig/Reji Route Start Time Stop Time Status Last Admin Dose Admin Ondansetron HCl 4 mg Q4HP PRN IV 01/19/24 20:15 Pantoprazole Sodium 40 mg DAILY IV 01/20/24 10:00 02/13/24 07:31 40 MG Nitroglycerin 0.4 mg Q5MINP PRN SL 01/19/24 20:15 Midazolam HCl 50 ml @ 1 mls/hr Q24H IV 01/19/24 21:30 02/12/24 06:10 3 MLS/HR Aspirin 81 mg DAILY NG 01/20/24 10:00 02/13/24 07:32 81 MG Atorvastatin Calcium 40 mg HS PO 01/20/24 22:00 02/13/24 21:56 40 MG Latanoprost 1 drop QPM EACHEYE 01/20/24 18:00 02/13/24 17:25 1 DROP Patient Own Medication 400 mg MONTHLY IM 01/20/24 11:30 Lisinopril 20 mg DAILY PO 01/20/24 11:30 02/13/24 07:31 20 MG Albuterol 2.5 mg Q4HR NEB 01/20/24 22:00 02/13/24 22:12 2.5 MG Ipratropium [place] 0.5 mg Q4HR NEB 01/20/24 22:00 02/13/24 22:12 0.5 MG Enteral Nutritional Formula 1,000 ml 60ML/HR GT 01/22/24 14:00 02/01/24 20:06 1,000 ML Vancomycin HCl 300 ml @ 200 mls/hr Q8H IV 01/28/24 02:00 Cancel Metoclopramide HCl 10 mg Q8HR IV 01/28/24 14:00 02/13/24 21:55 10 MG Hydralazine HCl 10 mg Q6HP PRN IV 01/30/24 13:15 02/05/24 02:46 10 MG Acetaminophen 650 mg Q4HP PRN PO 01/31/24 07:30 02/13/24 05:23 650 MG Furosemide 40 mg BIDD IV 02/02/24 10:30 02/13/24 17:25 40 MG Amino Acids 0 ml @ 0 mls/hr PER PHARMACY IV 02/03/24 12:15 Cefepime HCl 50 ml @ 12.5 mls/hr Q8HR IV 02/04/24 14:00 02/13/24 21:55 12.5 MLS/HR Diagnostic Test (Pha) 1 strip Q6HR 02/05/24 18:00 02/13/24 16:37 1 STRIP Dextrose 50 ml UD PRN IV 02/05/24 13:15 Insulin Human Regular Q6HR SC 02/05/24 15:15 02/13/24 17:06 8 UNITS Fentanyl Citrate 250 ml @ 2.5 mls/hr Q24H IV 02/07/24 08:15 02/12/24 04:17 17.5 MLS/HR Quetiapine Fumarate 100 mg BID PO 02/07/24 22:00 02/13/24 21:56 100 MG Insulin Glargine 30 units BID@1000,2200 SC 02/08/24 22:00 02/13/24 22:33 30 UNITS Dexmedetomidine HCl 400 mcg/ Dextrose 100 ml @ 7.25 mls/hr [id number] IV 02/09/24 18:00 02/12/24 16:39 7.25 MLS/HR Diltiazem HCl 30 mg BID GT 02/10/24 22:00 02/13/24 21:56 30 MG Norepinephrine Bitartrate 250 ml @ 3.75 mls/hr Q24H IV 02/11/24 10:45 Methylprednisolone Sodium Succinate 40 mg BID IV 02/13/24 22:00 02/13/24 21:55 40 MG Fat Emulsion Intravenous 150 ml/Sodium Chloride 40 meq/ Sodium Phosphate 25 meq/Potassium Chloride 50 meq/ Magnesium Sulfate 20 meq/ Multivitamins 10 ml/Insulin Human Regular 50 units/ Amino Acids/ Dextrose/Purified Water 1,706.75 ml @ 71 mls/hr Q24H3M IV 02/13/24 22:00 02/14/24 21:59 02/13/24 22:08 71 MLS/HR Docusate Sodium 100 mg BID PRN GT 02/13/24 14:30 Lactulose 30 ml Q6HR PRN PO 02/13/24 14:30 objective Gen.: Patient lying in bed in medical ICU. Intubated on mechanical ventilator. Head: Normocephalic, atraumatic. Eyes: PERRLA. Ears: Normal external anatomy. Throat: Endotracheal tube and orogastric tube in place. Neck: Supple, trachea midline. Chest: Transmitted breath sounds bilaterally. Decreased air entry bilaterally. No wheezing. Bibasilar crackles. Cardiovascular: Positive S1, positive S2. Regular rate and rhythm. Abdomen: Positive bowel sounds in all 4 quadrants. Soft, nontender, nondistended. : Reyes in place. Normal external genitalia. Rectal: Deferred. Skin: Warm, dry. Intact. Extremities: 2+ radial pulses bilaterally. No lower extremity edema. Neuro: Off sedation laboratory and microbiology Laboratory Tests 02/13/24 03:15 Test 02/13/24 03:15 Range/Units Serum Glucose 356 H 74-106 mg/dL Assessment/Plan Impression: Acute hypoxic respiratory failure On mechanical ventilator Acute exacerbation of asthma Elevated Troponin Schizophrenia Autism Cannabinoid Use Morbid obesity BMI 60.5 Pulmonary edema Events: Vent support On AC mode with RR 26, VT 500, PEEP 8, FiO2 30% Off sedation Remains off Rocuronium drip Leukocytosis: Monitor WBC - 23.0 K ABG reviewed. Compensated. CXR demonstrates devices in place, multifocal airspace disease. Continue antibiotics Seroquel 100 mg q.12 hours. Continue bronchodilators IV steroids TPN for nutritional support Diurese to euvolemia - Lasix BID Monitor renal function Monitor electrolytes. Supplement as necessary. Monitor ins and outs. CPAP with PS 20, PEEP of 8 to achieve VT 400-500 mL for pulmonary exercising. Continue daily CPAP trials. Recommend trach/PEG to liberate from vent. Bronchoscopy w/ RML BAL was performed on 02/05/24. Cultures grew Klebsiella pneumoniae. Labs and imaging reviewed. Rest of plan as noted below. Plan: s/p intubation on mechanical ventilator. On AC mode with RR 26, VT 500, PEEP 8, FiO2 30% Titrate FIO2 to keep O2 saturation above 90%. VAP bundle. Daily ABG and CXR while intubated Sedate for ventilator synchrony Pt does not tolerate turns. Derecruitment. Turn carefully. Elevated Troponin - Cardiology recs appreciated. Continue bronchodilators Antibiotics. F/u cultures. Pressors if necessary for hemodynamic support Titrate to keep mean arterial pressure greater than 65 mmHg. Currently off pressors, hemodynamically stable. Diurese to euvolemia Monitor renal function Monitor electrolytes. Supplement as necessary. Monitor ins and outs. Diet and lifestyle modifications for weight reduction Morbid obesity - complicates all care GI prophylaxis. DVT prophylaxis. Prognosis: Poor given patient's multiple co-morbidities. Condition: Critical Rest of plan per hospitalist and other consultants. A total of 35 minutes of critical care time was spent reviewing the patient record, examining the patient, making a diagnostic and therapeutic plan, discussing this plan with the medical personnel, following up on diagnostic studies and following the patient for clinical stability excluding any and all procedures. At least 50% of this time was spent in direct, [id number] contact. Thank you Irma Velasquez NP, for allowing me to participate in this patient's care. Further recommendations will depend on the patient's clinical course. Please do not hesitate to contact me if you have any questions or concerns. This medical document was created using an electronic medical record system with [employer] dictation system. Although these documentations are being carefully reviewed, there may still be some phonetic and typographical changes. The errors are purely typographical, due to imperfection on the software program, and do not reflect any compromise in the patient's medical care. Dietary Evaluation Review Comments: Current Jevity 1.2 @60ml/hr TF is meeting pt's need for protein at 60% for energy at 117% Continue monitor nutrition progress of nutrition support to meet 75% of his needs. Advance to a cardiac diet, texture as tolerated when medically feasible. Expected Outcomes/Goals: gradual weight loss Plan discussed with: Other (RN Maria T) Critical Care Time(min): 35 Date of Reassessment: Feb 11, 2024 VERÓNICA MERCER MD Feb 13, 2024 23:32
[2024-02-14] VITALS (55 sets, daily range): BP systolic 105–164; BP diastolic 53–102; PULSE 95–141; RESP 22–38; TEMP 99–99.4; O2SAT 90–100
[2024-02-14] MEDS: METOPROLOL TARTRATE 1MG/1ML-5ML VIAL IV ONE (02:44)
[2024-02-14 04:12] LABS: Basophils # (auto) 0.2 10 ^3/uL (0-0.2); Basophils % (auto) 0.7 % (0.0-2.0); Eosinophils # (auto) 0 10 ^3/uL (0-0.8); Hemoglobin 12.7 g/dL (13.5-17.5); Lymphocytes # (auto) 0.4 10 ^3/uL (0.4-5.4); Lymphocytes % (auto) 1.6 % (10.0-50.0); Monocytes # (auto) 0.7 10 ^3/uL (0-1.3); Monocytes % (auto) 2.7 % (0.0-12.0); Neutrophils # (auto) 23.5 10 ^3/uL (1.6-8.6); Red Cell Distribution Width 18.7 % (11.8-14.3); White Blood Cell 24.8 10^3/uL (4.4-10.8)
[2024-02-14 04:14] LABS: Eosinophils % (auto) 0.1 % (0.0-7.0); Hematocrit 40.9 % (41.0-53.0); Mean Corpuscular Hemoglobin 22.8 pg (28.0-32.0); Mean Corpuscular Hgb Conc. 31.2 g/dL (32.0-36.0); Mean Corpuscular Volume 73.3 fL (80.0-100.0); Neutrophils % (auto) 94.9 % (37.0-80.0); Platelet Count (auto) 254 10^3/uL (140-450); Red Blood Cells 5.58 10^6/uL (4.5-5.90)
[2024-02-14 04:51] LABS: Alanine Aminotransferase 176 U/L (7-40); Alkaline Phosphatase 138 U/L (46-116); Anion Gap 9 (5-15); Aspartate Aminotransferase 38 U/L (13-40); BUN/Creatinine Ratio 81.1 (10.0-20.0); Blood Urea Nitrogen 30 mg/dL (9-23); Calcium 10.1 mg/dL (8.7-10.4); Carbon Dioxide 25 mmol/L (20-31); Chloride 104 mmol/L (98-107); Glucose 292 mg/dL (74-106); Magnesium 2.1 mg/dL (1.6-2.6); Potassium 3.6 mmol/L (3.5-5.1); Sodium 138 mmol/L (136-145)
[2024-02-14 04:52] LABS: Bilirubin, Total 2.4 mg/dL (0.2-1.0); Total Protein 6.8 g/dL (5.7-8.2)
--- NOTE | 2024-02-14 05:59 | DVH ---
CHEST RADIOGRAPH Indication: intubated Technique: Single frontal view of the chest was obtained Comparison: XY CHEST PORTABLE on DOS: 02/13/24, XY CHEST PORTABLE on DOS: 02/12/24, XY CHEST PORTABLE on DOS: 02/11/24 IMPRESSION: There is cardiomegaly with low lung volumes. Moderate pulmonary vascular congestion. Support lines and tubes appear unchanged with left central venous catheter tip persisted in the brachiocephalic reg ion.
--- NOTE | 2024-02-14 10:57 | DVHPN2 ---
Progress Note - Dictate Date Seen: Feb 14, 2024 Medical Necessity Reason Pt with a Central, PICC or Fol: Yes The following are medically ne: Reyes Catheter Reason for reyes catheter: Strict I&O vital signs Vital Sign Date Time Temp Pulse Resp B/P (MAP) Pulse Ox O2 Delivery O2 Flow Rate FiO2 02/14/24 10:33 139 35 128/73 (91) 96 02/14/24 10:03 Mechanical Ventilator+ 30 30 02/14/24 08:03 99.0 99.0 Total Intake and Output 02/13/24 02/13/24 02/14/24 15:00 23:00 07:00 Intake Total 793.125 ml 337.25 ml 765.5 ml Output Total 1400 ml 1650 ml Balance 793.125 ml -1062.75 ml -884.5 ml medications Current Medications Medications Dose Ordered Sig/Reji Route Start Time Stop Time Status Last Admin Dose Admin Ondansetron HCl 4 mg Q4HP PRN IV 01/19/24 20:15 Pantoprazole Sodium 40 mg DAILY IV 01/20/24 10:00 02/14/24 07:31 40 MG Nitroglycerin 0.4 mg Q5MINP PRN SL 01/19/24 20:15 Midazolam HCl 50 ml @ 1 mls/hr Q24H IV 01/19/24 21:30 02/12/24 06:10 3 MLS/HR Aspirin 81 mg DAILY NG 01/20/24 10:00 02/14/24 07:32 81 MG Atorvastatin Calcium 40 mg HS PO 01/20/24 22:00 02/13/24 21:56 40 MG Latanoprost 1 drop QPM EACHEYE 01/20/24 18:00 02/13/24 17:25 1 DROP Patient Own Medication 400 mg MONTHLY IM 01/20/24 11:30 Lisinopril 20 mg DAILY PO 01/20/24 11:30 02/14/24 07:33 20 MG Albuterol 2.5 mg Q4HR NEB 01/20/24 22:00 02/14/24 09:58 2.5 MG Ipratropium [place] 0.5 mg Q4HR NEB 01/20/24 22:00 02/14/24 09:58 0.5 MG Enteral Nutritional Formula 1,000 ml 60ML/HR GT 01/22/24 14:00 02/01/24 20:06 1,000 ML Vancomycin HCl 300 ml @ 200 mls/hr Q8H IV 01/28/24 02:00 Cancel Metoclopramide HCl 10 mg Q8HR IV 01/28/24 14:00 02/14/24 05:21 10 MG Hydralazine HCl 10 mg Q6HP PRN IV 01/30/24 13:15 02/05/24 02:46 10 MG Acetaminophen 650 mg Q4HP PRN PO 01/31/24 07:30 02/14/24 02:37 650 MG Furosemide 40 mg BIDD IV 02/02/24 10:30 02/14/24 05:22 40 MG Amino Acids 0 ml @ 0 mls/hr PER PHARMACY IV 02/03/24 12:15 Cefepime HCl 50 ml @ 12.5 mls/hr Q8HR IV 02/04/24 14:00 02/14/24 05:21 12.5 MLS/HR Diagnostic Test (Pha) 1 strip Q6HR 02/05/24 18:00 02/14/24 05:22 1 STRIP Dextrose 50 ml UD PRN IV 02/05/24 13:15 Insulin Human Regular Q6HR SC 02/05/24 15:15 02/14/24 05:33 16 UNITS Fentanyl Citrate 250 ml @ 2.5 mls/hr Q24H IV 02/07/24 08:15 02/14/24 07:49 5 MLS/HR Quetiapine Fumarate 100 mg BID PO 02/07/24 22:00 02/14/24 07:32 100 MG Insulin Glargine 30 units BID@1000,2200 SC 02/08/24 22:00 02/14/24 07:52 30 UNITS Dexmedetomidine HCl 400 mcg/ Dextrose 100 ml @ 7.25 mls/hr [id number] IV 02/09/24 18:00 02/12/24 16:39 7.25 MLS/HR Diltiazem HCl 30 mg BID GT 02/10/24 22:00 02/14/24 07:32 30 MG Norepinephrine Bitartrate 250 ml @ 3.75 mls/hr Q24H IV 02/11/24 10:45 Methylprednisolone Sodium Succinate 40 mg BID IV 02/13/24 22:00 02/14/24 07:31 40 MG Fat Emulsion Intravenous 150 ml/Sodium Chloride 40 meq/ Sodium Phosphate 25 meq/Potassium Chloride 50 meq/ Magnesium Sulfate 20 meq/ Multivitamins 10 ml/Insulin Human Regular 50 units/ Amino Acids/ Dextrose/Purified Water 1,706.75 ml @ 71 mls/hr Q24H3M IV 02/13/24 22:00 02/14/24 21:59 02/13/24 22:08 71 MLS/HR Docusate Sodium 100 mg BID PRN GT 02/13/24 14:30 Lactulose 30 ml Q6HR PRN PO 02/13/24 14:30 laboratory and microbiology Laboratory Tests 02/14/24 03:15 Test 02/14/24 03:15 Range/Units Serum Glucose 292 H 74-106 mg/dL Assessment/Plan Patient is 28 year old morbidly obese male who presented to ED with shortness of breath. He has been intubated for respiratory failure and in on vent. support. Information was obtained by reviewing the chart and communicating with staff. Cardiology is involved for cardiac aspects of care. There is no report of chest pain prior to presentation. Reportedly, patient has been intubated for senior care previously for Asthma in other institution. Intubated and on vent support. Morbidly obese. Does have right sided subclavian access. No JVD. Mucosa is pink and wet. No goiter. Scattered rhonchi is heard. Cardiac: RR, no thrill, no gallop. Abdomen is soft, obese and distended. BS is +. Ext reveal 2+ edema bilaterally. DP is 2+ bilateral PMH reportedly includes Morbid obesity, Asthma (with previous intubations), Autism, Schizophrenia and ANNETTE. Smokes Marijuana and drinks alcohol WBC: 11.6 to 11.2 to 14.2 to 12.2 to 13.3 to 16.4 to 17.5 to 15.3 to 13.8 to 15.7 to 13.8 - 22.2 to 22.3 to 16.3 - 20.1 - 20.7 - 23.8 - 23.4 - 23.0 - 24.8 D-dimer: 0.43 (wnl) Creat: 0.73 - 0.70 - 0.67 - 0.76 - 0.71 - 0.70 - 0.69 - 0.59 - 0.60 - 0.52 - 0.50 - 0.47 - 0.47 - 0.62 - 0.42 - 0.39 - 0.51 - 0.52 - 0.46 - 0.38 - 0.41 - 0.43 - 0.41 - 0.44 - 0.42 - 0.38 - 0.30 - 0.37 K: 4.1 - 4.3 - 4.1 - 4.2 - 4.0 - 4.1 - 4.1 - 3.9 - 4.0 - 3.8 - 4.3 - 4.7 - 4.4 - 4.4 - 4.3 - 4.3 - 4.1 - 3.6 - 4.9 - 4.6 - 4.4 - 3.9 - 4.0 - 4.3 - 4.1 - 3.6 BNP: 561.97 - 173.31 Trop (high sensitive): 61 - 62 - 131 - 132 - 91 - 82 TSH: 0.48 Urine toxicology was positive for Cannabinoids and Benzodiazpin Chest xry revealed: FINDINGS: Lines and Tubes: None Lungs: Obscuration of the left hemidiaphragm Diffuse interstitial prominence. No pneumothorax. Cardiomediastinal contours: Moderate cardiomegaly Bones: No acute osseous abnormality. IMPRESSION: Moderate cardiomegaly with findings suggestive of congestive heart failure. Possible left-sided pleural effusion. Repeat chest xry revealed: Endotracheal tube projects terminating 1.8 cm superior to the zbigniew. Enteric tube is projecting below the GE junction without visualization of the port or tip. Low lung volumes with bronchovascular crowding. Possible small left-sided pleural effusion and/or atelectasis. No pneumothorax. Repeat chest xry revealed: Cardiomediastinal silhouette is enlarged. There is increased pulmonary vascular congestion, similar prior examination. Obscuration of the left hemidiaphragm may be on the basis of technique versus small pleural effusion. No discrete pneumothorax. Endotracheal tube and enteric tube are redemonstrated. Left IJ catheter tip is likely at the region of the brachiocephalic vein. Repeat chest xry revealed: FINDINGS: Cardiomediastinal silhouette is enlarged. There is increased pulmonary vascular congestion, similar prior examination. Obscuration of the left hemidiaphragm may be on the basis of technique versus small pleural effusion. No discrete pneumothorax. Endotracheal tube and enteric tube are redemonstrated. Left IJ catheter tip is likely at the region of the brachiocephalic vein. IMPRESSION: NO INTERVAL CHANGE. Repeat chest xry revealed: IMPRESSION: Improving pulmonary edema compared to prior exam. Repeat chest xry revealed: IMPRESSION: stable pulmonary edema compared to prior exam. Repeat chest xry revealed: IMPRESSION: Lines and tubes in satisfactory position. No significant interval change. Repeat chest xry revealed: IMPRESSION: Lines and tubes in satisfactory position. No significant interval change. Repeat chest xry revealed: IMPRESSION: Lines and tubes in satisfactory position. No significant interval change. Repeat chest xry: IMPRESSION: 1. Stable position of the support lines and tubes. 2. No significant change in diffuse bilateral airspace opacities. Repeat chest xry revealed: IMPRESSION: 1. Endotracheal tube terminates 6.4 symbol the zbigniew. 2. Bilateral airspace disease unchanged. Repeat chest xry revealed: IMPRESSION: 1. Endotracheal tube 4.1 cm above the zbigniew. 2. OG tube not visualized AND may BE IN THE RIGHT MAINSTEM BRONCHUS RECOMMEND REMOVAL AND REPOSITIONING WITH REPEAT CHEST X-RAY. Repeat chest xry revealed: FINDINGS: Endotracheal tube in place 4.4 cm above the zbigniew. Left internal jugular catheter in place in the superior vena cava. Cardiomegaly is noted with pulmonary vascular congestion findings may represent congestive failure other possibility such as pneumonia are in the differential. IMPRESSION: 1. Cardiomegaly with findings of pulmonary vascular congestion. Findings may represent congestive failure or pneumonia. Repeat chest xry revealed: Lines and Tubes: The endotracheal tube terminates 3.1 cm above the zbigniew. Left central venous catheter terminates in the superior vena cava. Enteric tube is visualized to the mid chest but not visualized below the left hemidiaphragm. Lungs: Bilateral airspace disease. Pleura: No effusion. No pneumothorax. Cardiomediastinal contours: Stable cardiomegaly. Bones: No acute osseous abnormality. IMPRESSION: 1. Enteric tube not visualized below the left hemidiaphragm. 2. Bilateral airspace disease similar to prior exam. Repeat chest xry revealed: Limited evaluation given patient positioning. The heart appears markedly enlarged. There are low lung volumes with moderate alveolar airspace opacities suggesting pulmonary edema. No discrete pneumothorax. Endotracheal tube appear stable. Enteric tube is not well visualized. Repeat chest xry revealed: IMPRESSION: 1. Stable appearance of the support lines and tubes. 2. Pulmonary opacities, unchanged. Repeat chest xry revealed: Evaluation limited by patient body habitus. Lines and Tubes: The endotracheal tube terminates 5.7 cm above the zbigniew. Left central venous catheter is unchanged in position. Enteric tube courses below the left hemidiaphragm and outside the field of view. Lungs: Bilateral airspace disease similar to prior study. Pleura: Possible bilateral pleural effusions. No pneumothorax. Cardiomediastinal contours: Stable. Bones: No acute osseous abnormality. IMPRESSION: 1. No significant interval change. Repeat chest xry revealed: IMPRESSION: Right lower lobe pneumonia. Repeat chest xry revealed: IMPRESSION: 1. Right middle lobe consolidation which may represent pneumonia. 2. Pulmonary congestion. 3. Obscuration of the left hemidiaphragm for which left pleural effusion is not excluded. 4. Stable cardiomegaly. Repeat chest xry revealed: Low lung volumes limits evaluation. Bilateral airspace opacities are unchanged. Likely small left pleural effusion. No pneumothorax visualized. Stable satisfactory positioning of the endotracheal tube and enteric tube. Stable positioning of the left internal jugular central venous catheter, with the tip at the level of the left brachiocephalic vein. IMPRESSION: No significant interval change as detailed above. Repeat chest xray revealed: IMPRESSION: Lines and tubes in satisfactory position. No significant interval change. Repeat chest xry revealed: IMPRESSION: Heart is enlarged. Patchy airspace opacity in the right lower lung appear similar. Moderate pulmonary vascular congestion. Support lines and tubes appear unchanged. No significant interval change. Repeat chest xry revealed: IMPRESSION: 1. Support lines and tubes as described. 2. Patchy diffuse bilateral consolidation similar to prior study. Repeat chest xry revealed: IMPRESSION: Lines and tubes in satisfactory position. No significant interval change. Repeat chest xry revealed: IMPRESSION: There is cardiomegaly with low lung volumes. Moderate pulmonary vascular congestion. Support lines and tubes appear unchanged with left central venous catheter tip persisted in the brachiocephalic region. KUB revealed: Impression: 1. Nonobstructive bowel gas pattern. 2. Enteric tube overlying the plane of the stomach. 3. No visualized renal calculi. Venous duplex of lower ext revealed: Impression: 1. No right or left femoropopliteal venous thrombosis. 2. Left common femoral vein and proximal superficial femoral vein are not visible and therefore thrombus can not be excluded in those areas. EKG revealed: Sinus tachycardia with non-specific STT changes Tele reveals Sinus rhythm Echocardiogram revealed: Technically limited study secondary to poor acoustic windows. Left ventricle: Left ventricle was normal-sized with normal systolic function. LVEF was 60-65%. There was no gross wall motion abnormality observed. Right ventricle was not well visualized but it was dilated. Left atrium was normal-sized. Right atrium was not well visualized. Aortic valve was trileaflet and normal. There was no aortic insufficiency/stenosis. There was trivial mitral and tricuspid regurgitation. There was mild pulmonary valve insufficiency. As there was no good tricuspid regurgitation jet, right ventricular systolic pressure could not be estimated. There was no pericardial effusion. Patient is 28 year old male with history of morbid obesity who presented with respiratory failure. Does have history of Asthma and reportedly has been intubated for it before. Trop has been mildly elevated. ACS is less likely and increase in troponin most likely represents demand physiology. Still, component of type 1 physiology cannot be completely ruled out. Echo revealed dilated RV. As there was no good TR jet, RVSP could not be estimated. Pulmonary Hypertension cannot be ruled out. Pulmonary on board. On sedation. ID on board Acute respiratory failure Asthma Asthma exacerbation Morbid obesity Abnormal trop Questionable heart failure, acute Pneumonia s/p bronchoscopy Cardiac suggestion for management: Manage in ICU IV diuresis Follow up electrolytes and kidney function test and correct abnormalities. Keep potassium above 4 and magnesium above 2 Lovenox ASA Follow up vital signs and correct hyper/hypotension. If needed add pressure support to keep MAP above 65 mmHg You can use Metoprolol tartrate to better control sinus tachycardia. At this point sinus tachycardia is assessed to reflect reaction to sepsis. Sepsis work up, adjusting the medication/antibiotics... as per ID/primary team. Consider Tylenol. 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 At least 50% of this time was spent in direct, [id number] contact. Thank you for allowing me to participate in this patient's care. Further recommendations will depend on patient's clinical course. Please do not hesitate to contact me if you have any questions or concerns. This medical document was created using electronic medical record system with [employer] dictation system. Although this document has been carefully reviewed, there may still be some phonetic and typographical errors. These areas are purely typographical due to the imperfection of the software programs, and do not reflect any compromise in the patient's medical care. Dietary Evaluation Review Comments: Current Jevity 1.2 @60ml/hr TF is meeting pt's need for protein at 60% for energy at 117% Continue monitor nutrition progress of nutrition support to meet 75% of his needs. Advance to a cardiac diet, texture as tolerated when medically feasible. Expected Outcomes/Goals: gradual weight loss Plan discussed with: Other (nurse) Date of Reassessment: Feb 11, 2024 PARRIS MCKINNON MD Feb 14, 2024 10:56
--- NOTE | 2024-02-14 20:46 | DVHDS2 ---
Discharge Summary Date of Admission Jan 19, 2024 at 20:14 Date of Discharge: Feb 14, 2024 Labs/Diagnostic Data: Laboratory Results Test 02/14/24 06:36 02/14/24 03:15 02/13/24 06:18 02/13/24 03:15 Blood Gas Specimen Type Arterial Blood Gas Sample Site Right radial Blood Gas Patient Temperature 37.0 Arterial Blood Date Drawn [id number] Arterial Blood pH 7.450 (7.350-7.450) Arterial Blood Partial Pressure CO2 41.8 mmHg (35.0-48.0) Arterial Blood Partial Pressure O2 67.1 mmHg (83.0-108.0) Arterial Blood HCO3 28.4 mmol/L (21.0-28.0) Arterial Blood Oxygen Saturation 92.7 % (94.0-98.0) Arterial Blood Base Excess 4.0 mmol/L (-2.0-3.0) Arterial Blood Oxyhemoglobin 92.1 % (94.0-98.0) Arterial Blood Carboxyhemoglobin 0.5 % (0.5-1.5) Arterial Blood Methemoglobin 0.2 % (0.0-1.5) Giacomo Test Modified Blood Gas Total Hemoglobin 14.80 g/dL (13.5-17.5) Blood Gas Set Respiration Rate 26.0 Blood Gas Modality Vent - ac FiO2 % 30.0 Blood Gas Tidal Volume 500.0 Blood Gas PEEP or CPAP 8.0 White Blood Count 24.8 10^3/uL (4.4-10.8) Red Blood Count 5.58 10^6/uL (4.5-5.90) Hemoglobin 12.7 g/dL (13.5-17.5) Hematocrit 40.9 % (41.0-53.0) Mean Corpuscular Volume 73.3 fL (80.0-100.0) Mean Corpuscular Hemoglobin 22.8 pg (28.0-32.0) Mean Corpuscular Hemoglobin Concent 31.2 g/dL (32.0-36.0) Red Cell Distribution Width 18.7 % (11.8-14.3) Platelet Count 254 10^3/uL (140-450) Mean Platelet Volume 8.8 fL (6.9-10.8) Neutrophils (%) (Auto) 94.9 % (37.0-80.0) Lymphocytes (%) (Auto) 1.6 % (10.0-50.0) Monocytes (%) (Auto) 2.7 % (0.0-12.0) Eosinophils (%) (Auto) 0.1 % (0.0-7.0) Basophils (%) (Auto) 0.7 % (0.0-2.0) Neutrophils # (Auto) 23.5 10 ^3/uL (1.6-8.6) Lymphocytes # (Auto) 0.4 10 ^3/uL (0.4-5.4) Monocytes # (Auto) 0.7 10 ^3/uL (0-1.3) Eosinophils # (Auto) 0 10 ^3/uL (0-0.8) Basophils # (Auto) 0.2 10 ^3/uL (0-0.2) Nucleated Red Blood Cells 0.0 % Sodium Level 138 mmol/L (136-145) Potassium Level 3.6 mmol/L (3.5-5.1) Chloride Level 104 mmol/L (98-107) Carbon Dioxide Level 25 mmol/L (20-31) Anion Gap 9 (5-15) Blood Urea Nitrogen 30 mg/dL (9-23) Creatinine 0.37 mg/dL (0.700-1.30) Glomerular Filtration Rate Calc 155 mL/min (>90) BUN/Creatinine Ratio 81.1 (10.0-20.0) Serum Glucose 292 mg/dL (74-106) Calcium Level 10.1 mg/dL (8.7-10.4) Phosphorus Level 3.0 mg/dL (2.4-5.1) Magnesium Level 2.1 mg/dL (1.6-2.6) Total Bilirubin 2.4 mg/dL (0.2-1.0) Aspartate Amino Transferase (AST) 38 U/L (13-40) Alanine Aminotransferase (ALT) 176 U/L (7-40) Alkaline Phosphatase 138 U/L (46-116) Total Protein 6.8 g/dL (5.7-8.2) Albumin 4.0 g/dL (3.2-4.8) Blood Gas Spontaneous Rate 30 Platelet Estimate Adequate Hypochromasia (manual) Slight Microcytosis Slight Triglycerides Level 195 mg/dL (< 150) Test 02/12/24 11:51 02/12/24 08:37 02/11/24 07:55 02/11/24 07:19 POC Glucose 279 mg/dl (70-106) Blood Gas Critical Value Read Back Yes Blood Gas Inspiratory Pressure 29.0 Bl Gas Inspiratory/Expiratory Ratio 1:2.2 Specimen Drawn By ludin rt Anisocytosis (manual) Slight Test 02/03/24 07:25 02/03/24 04:00 01/31/24 06:46 01/29/24 08:10 Blood Gas Notified Whom ac Dow md Blood Gas Notified Time [id number] Blood Gas Notified By reji Waters rn field case manager Influenza Type A Antigen Negative (Negative) Influenza Type B Antigen Negative (Negative) SARS-CoV-2 Antigen (Rapid) Negative (NEGATIVE) Lactic Acid Level 1.2 mmol/L (0.4-2.0) Prothrombin Time 11.4 sec (9.3-11.8) Prothrombin Time INR 1.08 (0.9-1.15) Activated Partial Thromboplast Time 28.5 SEC (24.5-34.5) Test 01/28/24 09:11 01/27/24 14:30 01/24/24 03:08 01/20/24 10:15 Vancomycin Level Trough 7.3 ug/mL (5-10) Gastric Fluid pH 4.0 Gastric Fluid Occult Blood Positive (Negative) B-Type Natriuretic Peptide 173.31 pg/mL (0-100) Troponin I High Sensitivity 82 ng/L (</=54) Test 01/20/24 07:34 01/19/24 20:16 01/19/24 20:10 01/19/24 18:04 Thyroid Stimulating Hormone (TSH) 0.48 uIU/mL (0.55-4.78) Blood Gas EPAP 8 Blood Gas IPAP 20 Urine Opiates Screen Neg (NEGATIVE) Urine Fentanyl Screen Neg (NEGATIVE) Urine Barbiturates Screen Neg (NEGATIVE) Urine Phencyclidine Screen Neg (NEGATIVE) Urine Amphetamines Screen Neg (NEGATIVE) Urine Benzodiazepines Screen Pos (NEGATIVE) Urine Cocaine Screen Neg (NEGATIVE) Urine Cannabinoids Screen Pos (NEGATIVE) D-Dimer, Quantitative 0.43 mg/L FEU (0.0-0.49) Test 01/19/24 17:56 Blood Gas Liter Flow 6.00 Other Laboratory Tests 02/14/24 03:15 Brief Hx & Hospital Course: Patient was admitted on January [id number] for acute hypoxic respiratory failure which was likely related to acute asthma exacerbation pneumonia and sepsis and possibly CHF. Pneumonia is likely Gram-negative or Gram-positive. During hospital stay patient received vancomycin from 01/23/24 to 01/28/24, Zyvox from 01/28/24 to 02/04/24, and Zosyn from 02/01/2024 to 02/04/24. Patient had bronchoscopy done on 02/05/2024 and respiratory cultures revealed Klebsiella pneumoniae. Patient was started on cefepime by Infectious Disease Dr. Degroot. Patient was having difficulty coming off the ventilator. Patient did have CPAP trial yesterday for 8 hours and was placed back on assist control with a tidal volume of 500, respiratory rate of 26, and peep of 8, FiO2 of 30 %. Riddler Operator did recommend trach and PEG, however family refused in hopes that patient could come off ventilator sooner and would not require trach and PEG. Patient did not tolerate tube feedings and was started on TPN. Patient was accepted at [facility] and was discharged to [facility] for further management. I attempted to call Dr. Garcia to give provider to provider report and left a message yesterday and today however there was no answer. I called Dr. Garcia [phone]. Condition at Discharge: Fair Final Diagnosis/Problems List 1. Asthma with acute exacerbation 2. Acute hypoxic respiratory failure requiring intubation likely related to pneumonia Gram-negative or Gram-positive 3. Schizophrenia 4. Autism 5. Elevated Troponin 6. Cannabis Use Discharge Disposition: Acute Care Facility Discharge Instruct/Medications Diet: Consistent carbohydrate, See Comment Diet comment: TPN Activity: Bed rest Discharge Statement: "Patient was advised to return to the ER or call 911 if any headaches, dizziness, shortness of breath, chest pain, abdominal pain, bleeding, fevers, or worsening of medical condition. Patient was counseled about treatment plan, medications, possible side effects, patientverbalized understanding. All questions were answered to the best of my ability. This discharge took greater then 30 minutes in planning, reviewing documentation, counseling the patient, and discussing with other team members." ASSESSMENT ASSESSMENT Assessment 1. Asthma with acute exacerbation 2. Acute hypoxic respiratory failure requiring intubation 3. Schizophrenia 4. Autism 5. Elevated Troponin 6. Cannabis Use [facility] Feb 14, 2024 20:46
--- NOTE | 2024-02-14 21:36 | DVHPN2 ---
Progress Note - Dictate Date Seen: Feb 14, 2024 Medical Necessity Reason Pt with a Central, PICC or Fol: Yes The following are medically ne: Reyes Catheter Reason for reyes catheter: Strict I&O Subjective Patient seen and examined at bedside. intubated on mechanical ventilator. Overnight events reviewed. vital signs Vital Sign Date Time Temp Pulse Resp B/P (MAP) Pulse Ox O2 Delivery O2 Flow Rate FiO2 02/14/24 10:33 139 35 128/73 (91) 96 02/14/24 10:03 Mechanical Ventilator+ 30 30 02/14/24 08:03 99.0 99.0 Total Intake and Output 02/13/24 02/13/24 02/14/24 15:00 23:00 07:00 Intake Total 793.125 ml 337.25 ml 765.5 ml Output Total 1400 ml 1650 ml Balance 793.125 ml -1062.75 ml -884.5 ml medications Current Medications Medications Dose Ordered Sig/Reji Route Start Time Stop Time Status Last Admin Dose Admin Vancomycin HCl 300 ml @ 200 mls/hr Q8H IV 01/28/24 02:00 Cancel objective Gen.: Patient lying in bed in medical ICU. Intubated on mechanical ventilator. Head: Normocephalic, atraumatic. Eyes: PERRLA. Ears: Normal external anatomy. Throat: Endotracheal tube and orogastric tube in place. Neck: Supple, trachea midline. Chest: Transmitted breath sounds bilaterally. Decreased air entry bilaterally. No wheezing. Bibasilar crackles. Cardiovascular: Positive S1, positive S2. Regular rate and rhythm. Abdomen: Positive bowel sounds in all 4 quadrants. Soft, nontender, nondistended. : Reyes in place. Normal external genitalia. Rectal: Deferred. Skin: Warm, dry. Intact. Extremities: 2+ radial pulses bilaterally. No lower extremity edema. Neuro: Off sedation laboratory and microbiology Laboratory Tests 02/14/24 03:15 Test 02/14/24 03:15 Range/Units Serum Glucose 292 H 74-106 mg/dL Assessment/Plan Impression: Acute hypoxic respiratory failure On mechanical ventilator Acute exacerbation of asthma Elevated Troponin Schizophrenia Autism Cannabinoid Use Morbid obesity BMI 60.5 Pulmonary edema Events: Vent support On AC mode with RR 26, VT 500, PEEP 8, FiO2 30% Off sedation ABG reviewed. Compensated. CXR demonstrates devices in place, multifocal airspace disease. He has tolerated CPAP with PS 20 cmH2O, Peep 5 He has been exercising on these settings these last 2 days. Will progressively taper PS as tolerated. CPAP with PS 20, PEEP of 8 to achieve VT 400-500 mL for pulmonary exercising. Continue daily CPAP trials. Continue antibiotics for Klebsiella pneumonia. Seroquel 100 mg q.12 hours. Continue bronchodilators IV steroids TPN for nutritional support Diurese to euvolemia - Lasix BID Monitor renal function Monitor electrolytes. Supplement as necessary. Monitor ins and outs. Recommend trach/PEG to liberate from vent. Family declined trach. Plan to transfer to LTAC to continue attempts to liberate from [facility] vent. Labs and imaging reviewed. Rest of plan as noted below. Plan: s/p intubation on mechanical ventilator. On AC mode with RR 26, VT 500, PEEP 8, FiO2 30% Titrate FIO2 to keep O2 saturation above 90%. VAP bundle. Daily ABG and CXR while intubated Sedate for ventilator synchrony Pt does not tolerate turns. Derecruitment. Turn carefully. Elevated Troponin - Cardiology recs appreciated. Continue bronchodilators Antibiotics. F/u cultures. Pressors if necessary for hemodynamic support Titrate to keep mean arterial pressure greater than 65 mmHg. Currently off pressors, hemodynamically stable. Diurese to euvolemia Monitor renal function Monitor electrolytes. Supplement as necessary. Monitor ins and outs. Diet and lifestyle modifications for weight reduction Morbid obesity - complicates all care GI prophylaxis. DVT prophylaxis. Prognosis: Poor given patient's multiple co-morbidities. Condition: Critical Rest of plan per hospitalist and other consultants. A total of 35 minutes of critical care time was spent reviewing the patient record, examining the patient, making a diagnostic and therapeutic plan, discussing this plan with the medical personnel, following up on diagnostic studies and following the patient for clinical stability excluding any and all procedures. At least 50% of this time was spent in direct, peoh-fs-fome contact. Thank you Irma Velasquez NP, for allowing me to participate in this patient's care. Further recommendations will depend on the patient's clinical course. Please do not hesitate to contact me if you have any questions or concerns. This medical document was created using an electronic medical record system with [employer] dictation system. Although these documentations are being carefully reviewed, there may still be some phonetic and typographical changes. The errors are purely typographical, due to imperfection on the software program, and do not reflect any compromise in the patient's medical care. Dietary Evaluation Review Comments: Current Jevity 1.2 @60ml/hr TF is meeting pt's need for protein at 60% for energy at 117% Continue monitor nutrition progress of nutrition support to meet 75% of his needs. Advance to a cardiac diet, texture as tolerated when medically feasible. Expected Outcomes/Goals: gradual weight loss Plan discussed with: Other (SAIGE Cerda, RT, PRODUCTION MACHINE OPERATOR) Critical Care Time(min): 35 Date of Reassessment: Feb 11, 2024 VERÓNICA EMRCER MD Feb 14, 2024 21:36
== END 2024-02-14 11:44 | DRG 720 ==
LOC: EDBD 17:12 → ER 17:12 → TELE 20:14 → OVERFLOW 20:40 → ICU WEST 01-21 14:56
PROVIDERS: ADMIT Nurse Practitioner; ATTEND Nurse Practitioner
PROC: 5A1955Z Respiratory Ventilation, Greater than 96 Consecutive Hours (ICD-10-PCS; principal; 2024-01-19)
PROC: 0BH17EZ Insertion of Endotracheal Airway into Trachea, Via Natural or Artificial Opening (ICD-10-PCS; 2024-01-19)
PROC: 05HY33Z Insertion of Infusion Device into Upper Vein, Percutaneous Approach (ICD-10-PCS; 2024-01-19)
PROC: 5A09357 Assistance with Respiratory Ventilation, Less than 24 Consecutive Hours, Continuous Positive Airway Pressure (ICD-10-PCS; 2024-01-19)
PROC: 0B9D8ZX Drainage of Right Middle Lung Lobe, Via Natural or Artificial Opening Endoscopic, Diagnostic (ICD-10-PCS; 2024-02-05)
DX: A41.59 Other Gram-negative sepsis (principal); J96.01 Acute respiratory failure with hypoxia; J15.0 Pneumonia due to Klebsiella pneumoniae; J15.69 Pneumonia due to other Gram-negative bacteria; E87.3 Alkalosis; D69.6 Thrombocytopenia, unspecified; I27.20 Pulmonary hypertension, unspecified; J45.901 Unspecified asthma with (acute) exacerbation; Z68.44 Body mass index [BMI] 60.0-69.9, adult; Z20.822 Contact with and (suspected) exposure to COVID-19; I50.9 Heart failure, unspecified; R04.0 Epistaxis; I95.9 Hypotension, unspecified; E66.01 Morbid (severe) obesity due to excess calories; F20.9 Schizophrenia, unspecified; F84.0 Autistic disorder; I37.1 Nonrheumatic pulmonary valve insufficiency; F17.200 Nicotine dependence, unspecified, uncomplicated; F41.9 Anxiety disorder, unspecified; Z79.899 Other long term (current) drug therapy
CPT/HCPCS: 36415; 36556; 36600; 71045; 74018; 80048; 80053; 80202; 80307; 82271; 82565; 82805; 82962; 83605; 83735; 83880; 84100; 84132; 84443; 84478; 84484; 85025; 85379; 85610; 85730; 87040; 87070; 87077; 87081; 87086; 87186; 87205; 87426; 87804; 93005; 93306; 93970; 94002; 94003; 94640; 94660; 99291; G0378; J0692; J1815; J2470; J2543; J2704; J3480; J3490; J7060; J7131

== ENCOUNTER 2025-01-21 11:19 | Emergency (ER) | payer MEDICAID ==
[~2025-01-21] VITALS: Ht 167.6 cm; Wt 124.0 kg
[~2025-01-21 11:19] MED LIST changes: -BUDE1AER16 IN; -PRED20TA2 PO
--- NOTE | 2025-01-21 12:53 | DVH ---
CHEST RADIOGRAPH INDICATION: trach TECHNIQUE: Single frontal view of the chest was obtained COMPARISON: XY CHEST PORTABLE on DOS: 02/14/24, XY CHEST PORTABLE on DOS: 02/13/24, XY CHEST PORTABLE on DOS: 02/12/24 FINDINGS: Lines and Tubes: None Lungs: No focal consolidation. Pleura: No effusion. No pneumothorax. Cardiomediastinal contours: Unremarkable Bones: No acute osseous abnormality. IMPRESSION: 1. No acute cardiopulmonary disease. 2. A more thorough evaluation of the trach site would be obtained with a CT of the chest.
--- NOTE | 2025-01-21 15:30 | ED.PDOC ---
History of Present Illness(SKN HPI Comments HPI:Victor M 29 y.o male presents to the ED via EMS for an evaluation of trach evaluation. Per family at the [facility], patient was recently admitted at [facility] and discharged x 2 weeks ago where he had his trach removed. 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 Patient at this time denies any SOB, chest pain, fever or chills. Initial Vitals BP: 149/85 HR: 91 RR: 16 O2 Sat: 98% rA Temp: 98.7 F Past Medical history: asthma, autism, schizophrenia Past Surgical history: Tach Social History: Denies smoking, ETOH, and drug use. Allergies: NKDA `` HPI: Poor Historian. REVIEW OF SYSTEMS: CONSTITUTIONAL: Denies acute: fever, diaphoresis, chills, generalized weakness. HEAD: Denies acute: headache, photophobia Eyes: Denies acute: Double vision, vision loss, eye pain, eye discharge. EARS: Denies acute: tinnitus, hearing loss, ear discharge, ear pain, THROAT: Denies acute: sore throat, swelling, difficulty swallowing , pain with swallowing, change in voice. NECK: Denies acute: neck pain, neck swelling, stiff neck. HEART: Denies acute : chest pain, palpitations, LUNGS: Denies acute: SOB, wheezing, cough, hemoptysis ABDOMEN: Denies acute: abdominal pain, Nausea, Vomiting, diarrhea, melena , hematemesis, hematochezia SKIN: Denies acute: rash, redness, lesions, itchiness. EXTREMITIES: Denies acute: calf pain, numbness, tingling, weakness, denies pain in extremity. Denies acute: Low back pain. Neuro: Denies acute: focal neurological deficit, motor or sensory focal neurological deficit, tremors, seizure like activity, confusion, dizziness, change in mental status, loss of bowel or bladder function, cauda equina like symptoms. : Denies acute: dysuria, hematuria, flank pain, increase in urinary frequency. PSYCH: Denies acute: hallucination, suicidal ideation, homicidal ideation. PHYSICAL EXAM: General: ---no-----acute distress, awake and alert. Head: normocephalic, atraumatic. No raccoon's eyes, no hilario sign. Neck: supple, trachea is midline, no swelling. TRACH SITE EVALUATION. STABLE, NO ACTIVE BLEEDING. STOMA IS CLOSING WELL. MOHTER AT BEDSIDE. Throat: Normal phonation. Eyes:, no erythema, no purulent discharge, no proptosis, no icterus. Heart: regular rate, regular rhythm, no significant murmur appreciated. Lungs: no apparent respiratory distress, Able to speak in full sentences. No wheezing, no rhonchi, no crackles. No stridors Clear to auscultation bilaterally. Abdomen: non tender to palpation, non distended, soft, no guarding, no rebound, + bowel sounds. Neuro: Awake, Alert, oriented to name, self, situation, follows commands GCS=15. Speech is normal. Skin: no petechia, no purpura, no cyanosis, non-pale, not jaundice. Lower extremities: --no - Pitting edema no deformity, no focal swelling, no calf TTP. Makes eye contact. moves all four extremities. Face: no apparent facial droop. No nuchal rigidity, Kernig's sign, Brudzinski's sign, no meningeal signs. ED COURSE: DISCLAIMER: This medical document was created using an electronic medical record system with voice recognition software and computerized dictation system. Although this document has been carefully reviewed, there might still be some phonetic and typographical errors. Occasional wrong-word or "sound-alike" substitutions may have occurred due to the inherent limitations of voice recognition software. These areas are purely typographical due to imperfections of the software programs and do not reflect any compromise in the patient's medical care. Please read the chart carefully and recognize, using context, where these substitutions have occurred. 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, Allergies Allergies: Coded Allergies: NO KNOWN ALLERGIES (Unverified , 09/01/23) Home Meds Reported Medications Metformin Hydrochloride (Metformin Hcl) 500 Mg Tab, 1 TAB PO BID for 90 Days, #180 01/20/24 Beclomethasone Dipropionate (Qvar Redihaler) 40 Mcg/Act Aer, 1 PUFF IN BID for 60 Days, #10.6 01/20/24 Albuterol Sulfate (Albuterol Sulfate Hfa) 108 Mcg/Act Aer, 2 PUFF IN Q4HR PRN for COUGH for 16 Days, #8.5 01/20/24 Latanoprost (Xalatan) 0.005 % Rosy, 1 DROP EACHEYE QPM 09/02/23 Dorzolamide-Timolol (Dorzolamide Hcl/Timolol M) 1 Ml Rosy, 1 DROP EACHEYE BID 09/02/23 Tetrabenazine (Tetrabenazine) 25 Mg Tab, 1 TAB PO DAILY 09/02/23 Trazodone Hcl (Trazodone Hcl) 100 Mg Tab, 1 TAB PO BID 09/02/23 Cholecalciferol (VITAMIN D3) 2,000 Unit Tab, 1 TAB PO DAILY 09/02/23 Atenolol (Atenolol) 50 Mg Tab, 1 TAB PO DAILY 09/02/23 Aripiprazole Monohydrate (Abilify Maintena) 400 Mg Inj, 400 MG IM MONTHLY for 28 Days, #1 09/02/23 Information Source: Relative Mode of Arrival: EMS Was a procedure done? Was a procedure done?: No Differential Diagnosis (INTG) Differential Diagnosis: Abscess, Candidiasis, Gangrene Differential Diagnosis: Cellulitis, Lacerations, Hematoma, Neurovascular Injury X-Ray, Labs, Meds, VS Vital Signs Date Time Temp Pulse Resp B/P (MAP) Pulse Ox O2 Delivery O2 Flow Rate FiO2 01/21/25 16:36 98.1 91 18 137/88 (104) 95 98.1 01/21/25 11:26 98.7 91 16 149/[address] [address] Ph: [phone] DIAGNOSTIC IMAGING Diagnostic Imaging Report : [id number] Signed PATIENT: DENNIS MERCER ACCT: [id number] UNIT: [id number] : 1995 LOC: ER ROOM / BED: / AGE / SEX: 29 / M ADM STATUS: REG ER SERVICE 1123 ORDERING PHYSICIAN: HUGO YEPEZ DO PROCEDURE(s): CXR1 - CHEST XRAY 1 VIEW REASON: trach ORDER NUMBER(s): [id number], ACCESSION NUMBER(s): [id number] CHEST RADIOGRAPH INDICATION: trach TECHNIQUE: Single frontal view of the chest was obtained COMPARISON: XY CHEST PORTABLE on DOS: 02/14/24, XY CHEST PORTABLE on DOS: 02/13/24, XY CHEST PORTABLE on DOS: 02/12/24 FINDINGS: Lines and Tubes: None Lungs: No focal consolidation. Pleura: No effusion. No pneumothorax. Cardiomediastinal contours: Unremarkable Bones: No acute osseous abnormality. IMPRESSION: 1. No acute cardiopulmonary disease. 2. A more thorough evaluation of the trach site would be obtained with a CT of the chest. ATED BY: JOSE FREEMAN Jr., DO DICTATED DATE/TIME: 01/21/25 1250 SIGNED BY: JOSE FREEMAN Jr., SIGNED DATE/TIME: 01/21/25 125 CC: Time of 1ST Reevaluation: 15:27 Reevaluation 1ST: Unchanged Patient Education/Counseling: Other Family Education/Counseling: Diagnosis, Treatment Comments RT came and evaluated the tracheostomy site as well. No worrisome findings. Patient denies any chest pain shortness of breath or airway obstruction or fever. There was no evidence of bleeding or infection at the site. Departure 1 Departure Time of Disposition: 15:32 Impression: Primary Impression: Tracheostomy care Additional Impression: Tracheostomy scar Disposition: HOME / SELF CARE / HOMELESS Condition: Stable Additional Instructions: ADDITIONAL INSTRUCTIONS: PLEASE READ ALL INSTRUCTIONS PROVIDED IN THIS PACKET CAREFULLY. YOU MUST FOLLOW-UP WITH YOUR PRIMARY CARE/FAMILY DOCTOR IN 1 TO 2 DAYS. IF YOU ARE UNABLE TO SEE YOUR PRIMARY CARE/FAMILY DOCTOR, PLEASE RETURN TO OUR EMERGENCY ROOM FOR RE-ASSESSMENT AND RE-EVALUATION IN 1 TO 2 DAYS. RETURN TO THE EMERGENCY ROOM HERE IN OUR FACILITY OR TO THE NEAREST ER [facility] IF YOUR SYMPTOMS CHANGE OR WORSEN. CONSULTATIONS: YOU MUST FOLLOW-UP FOR CONSULTATION SOON POSSIBLE WITH: -CARDIOLOGY AND PULMONOLOGY IN 1-2 DAYS. PLEASE CALL FOR APPOINTMENT. YOU MUST CALL THE CONSULTANTS OFFICE YOURSELF TO MAKE AN APPOINTMENT. YOU MAY NEED TO ARRANGE THAT THROUGH YOUR INSURANCE AND/OR YOUR PRIMARY/FAMILY DOCTOR. IF YOU ARE UNABLE TO SEE THE EXERCISER HORSE IN 1 TO 2 DAYS, YOU MUST RETURN TO OUR EMERGENCY ROOM (OR ANY OTHER ER OF YOUR CHOICE) FOR RE-ASSESSMENT AND RE- EVALUATION. ADEQUATE FLUID HYDRATION. ALTHOUGH YOU HAVE BEEN DISCHARGED FROM THE EMERGENCY DEPARTMENT, THIS DOES NOT MEAN THAT YOU HAVE A "CLEAN BILL OF HEALTH". NO DEFINITIVE DIAGNOSIS FOR YOUR SYMPTOMS HAS BEEN MADE TODAY. IT IS POSSIBLE THAT YOU ARE IN THE PROCESS OF DEVELOPING A SERIOUS ILLNESS. THIS IS WHY YOU MUST RETURN TO THE ED WITHOUT FAIL IF ANY NEW OR WORSENING SYMPTOMS DEVELOP. BELOW IS A COPY OF YOUR RADIOLOGICAL REPORT FOR FOLLOW UP: [place] [address] Ph: [phone] DIAGNOSTIC IMAGING Diagnostic Imaging Report : [id number] Signed PATIENT: DENNIS MERCER ACCT: [id number] UNIT: [id number] : 1995 LOC: ER ROOM / BED: / AGE / SEX: 29 / M ADM STATUS: REG ER SERVICE 1123 ORDERING PHYSICIAN: HUGO YEPEZ DO PROCEDURE(s): CXR1 - CHEST XRAY 1 VIEW REASON: trach ORDER NUMBER(s): [id number], ACCESSION NUMBER(s): [id number] CHEST RADIOGRAPH INDICATION: trach TECHNIQUE: Single frontal view of the chest was obtained COMPARISON: XY CHEST PORTABLE on DOS: 02/14/24, XY CHEST PORTABLE on DOS: 02/13/24, XY CHEST PORTABLE on DOS: 02/12/24 FINDINGS: Lines and Tubes: None Lungs: No focal consolidation. Pleura: No effusion. No pneumothorax. Cardiomediastinal contours: Unremarkable Bones: No acute osseous abnormality. IMPRESSION: 1. No acute cardiopulmonary disease. 2. A more thorough evaluation of the trach site would be obtained with a CT of the chest. ATED BY: JOSE FREEMAN Jr., DO DICTATED DATE/TIME: 01/21/25 1250 SIGNED BY: JOSE FREEMAN Jr., DO SIGNED DATE/TIME: 01/21/25 125 CC: Discharged With: Self, Relative (Mother) Critical Care Note Critical Care Time?: No I personally scribed for HUGO YEPEZ DO ([email or web address]) on 01/21/25 at 15:30. Electronically submitted by Zenaida Toledo ([facility]). I personally scribed for HUGO YEPEZ DO ([facility]) on 01/21/25 at 15:33. Electronically submitted by Zenaida Toledo ([facility]). I personally scribed for HUGO YEPEZ DO ([facility]) on 01/21/25 at 20:15. Electronically submitted by Zenaida Toledo ([facility]). HUGO YEPEZ DO Jan 21, 2025 15:30
[2025-01-21 16:36] VITALS: BP 137/88; PULSE 91; RESP 18; TEMP 98.1; O2SAT 95
== END 2025-01-21 16:37 | disposition home or self-care (01) ==
LOC: EDBD 11:19 → EDUNIT# 11:19 → ER 11:19
DX: Z43.0 Encounter for attention to tracheostomy (principal); F20.9 Schizophrenia, unspecified; F84.0 Autistic disorder; J45.909 Unspecified asthma, uncomplicated; Z46.82 Encounter for fitting and adjustment of non-vascular catheter; Z79.84 Long term (current) use of oral hypoglycemic drugs; Z79.899 Other long term (current) drug therapy
CPT/HCPCS: 71045